=== PATIENT | male | born 2000 | race Caucasian/White ===

== ENCOUNTER 2020-10-22 15:24 | Emergency (ER) | payer OTHER, SELFPAY ==
[2020-10-22 15:51] VITALS: BP 140/67; PULSE 89; RESP 16; TEMP 36.1; O2SAT 98; BMI 25.7
--- NOTE | 2020-10-22 19:55 | ED.GENADULT ---
HPI - General Adult General Chief complaint: General Medical <Adela Escobar NP - Last Filed: 10/23/20 01:10> Stated complaint: seizure <CATALINA Niño Last Filed: 10/23/20 01:10> Time Seen by Provider: 10/22/20 17:18 <CATALINA Niño Last Filed: 10/23/20 01:10> Source: patient and family <CATALINA Niño Last Filed: 10/23/20 01:10> Mode of arrival: ambulatory <Adela Escobar NP - Last Filed: 10/23/20 01:10> Limitations: no limitations <CATALINA Niño Last Filed: 10/23/20 01:10> History of Present Illness HPI narrative: 20-year-old male with substance abuse presents with withdrawal symptoms. States that he was at detox for almost 2 weeks and the left 2 days ago on his own regard before finishing treatment. He reports using heroin when he left because he could not get any benzos. He is asking for Ativan or Klonopin, and states that he would like to get back into a detox program. He denies suicidal ideation, homicidal ideation, and auditory visual hallucinations. He is quite vague about what his withdrawal symptoms were, call them seizure-like activity, but did not lose consciousness or lose continence of bowel or bladder. He does not have any other complaints at this time. <Adela Escobar NP - Last Filed: 10/23/20 01:10> Onset (ago): week(s) <CATALINA Niño Last Filed: 10/23/20 01:10> Severity: moderate <Adela Escobar NP - Last Filed: 10/23/20 01:10> Associated symptoms: denies other symptoms <CATALINA Niño Last Filed: 10/23/20 01:10> Related Data Home medications: Home Medications Medication Instructions Recorded Confirmed Vitamin B-1 100 mg PO DAILY 10/22/20 10/22/20 buprenorphine-naloxone 1 strip SUBLINGUAL DAILY 10/22/20 10/22/20 clonidine HCl 1 tab PO QID 10/22/20 10/22/20 duloxetine 1 cap PO DAILY 10/22/20 10/22/20 gabapentin 1 cap PO TID 10/22/20 10/22/20 quetiapine 2 tab PO Q8H 10/22/20 10/22/20 trazodone 1 tab PO BEDTIME PRN 10/22/20 10/22/20 omeprazole 1 tab PO DAILY 10/23/20 10/23/20 <Adela Escobar NP - Last Filed: 10/23/20 01:10> Allergies/adverse reactions: Allergies Allergy/AdvReac Type Severity Reaction Status Date / Time No Known Allergies Allergy Unverified 02/16/20 19:18 [No Known Allergies*] <CATALINA Niño Last Filed: 10/23/20 01:10> Review of Systems Review of Systems: Constitutional: No Fever, No Chills ENT/Mouth: No sore throat, No Rhinorrhea Eyes: No Eye Pain, No Swelling, No Redness Cardiovascular: No Chest Pain, No SOB Respiratory: No Cough, No Sputum Gastrointestinal: No Nausea, No Vomiting, No Diarrhea, No abdominal Pain Genitourinary: No Dysuria, No Hematuria Musculoskeletal: No joint pain, No Myalgias, No Joint Swelling Skin: No Skin Lesions, No rash Neuro: No Weakness, No Numbness, No Loss of Consciousness, No Dizziness, No Headache Psych: Positive substance abuse, No Anxiety, No Depression, No SI/HI/AH/VH Heme/Lymph: No Bruising, No Bleeding,No Lymphadenopathy Endocrine: No Polyuria, No Polydipsia <Adela Escobar NP - Last Filed: 10/23/20 01:10> Yes all other systems are reviewed and are negative <Adela Escobar NP - Last Filed: 10/23/20 01:10> [facility] Past Medical History Attestation statement: The following information was validated with the patient. <CATALINA Niño Last Filed: 10/23/20 01:10> Source: old records reviewed <CATALINA Niño Last Filed: 10/23/20 01:10> Social History Social History: Social History Alcohol intake: never Smoked in Last 30 Days: Yes Use of substances other than those prescribed or required for medical reasons: Yes Substance Use Type: Heroin and Opiates Substance Use Type Other:: KETAMINE Substance Use Frequency: Chronic Longstanding Last Used Substance: Hours (ago) Any prior treatment program specific to substance use: Yes Advance Directives: No <Adela Escobar NP - Last Filed: 10/23/20 01:10> Physical Exam Vital Signs: Vital Signs: Last Vital Signs Temp 98.8 F 10/23/20 13:31 Pulse 77 10/23/20 13:31 Resp 18 10/23/20 08:32 BP 109/53 L 10/23/20 13:31 Pulse Ox 98 10/23/20 13:31 Body Mass Index 25.7 <Adela Escobar NP - Last Filed: 10/23/20 01:10> Vital Signs: Last Vital Signs Temp 98.8 F 10/23/20 13:31 Pulse 77 10/23/20 13:31 Resp 18 10/23/20 08:32 BP 109/53 L 10/23/20 13:31 Pulse Ox 98 10/23/20 13:31 Body Mass Index 25.7 <Elissa Mederos NP - Last Filed: 10/23/20 16:55> Appearance: Alert. Oriented X3. No acute distress. Eyes: Pupils equal, round and reactive to light. ENT: Pharynx normal. Neck: Normal inspection. Neck supple. CVS: Normal heart rate and rhythm. Pulses normal. Respiratory: No respiratory distress. Breath sounds normal. Abdomen: Soft and nontender. Skin: Skin warm and dry. Normal skin color. Normal skin turgor. Extremities: No lower extremity edema. Neuro: No motor deficit. No sensory deficit. <Adela Escobar NP - Last Filed: 10/23/20 01:10> Course Course Course Narrative: 20-year-old male presents with withdrawal symptoms. He left detox without completing entire course of treatment, stated that he used heroin over the past 2 days. Has been sleeping outside and is homeless. Mother presents with him, patient has a restraining order against him from his biological father, patient has been stealing family's medications. At the time of my assessment, pyridine recovery operator is at bedside and we are trying to help him either get back into detox, or get set up with methadone maintenance. Patient is asking for Ativan or Klonopin. He was advised that this would not be possible and that he needed to have a provider that could follow him in the community. 8:50 p.m. plan of care discussed with patient and mother, patient clearly disappointed that he will not be receiving any Ativan or Klonopin, once he understood that we would not be filling these medications he stated that he was suicidal and is going to get 2 g of heroin. 9:00 p.m.. Patient moved to the Psychiatric pod, shortly after arriving, he told the nurse that he was kidding and that he was just trying to make his mother angry. Patient was advised that he this manipulative behavior would not work here, and that he would not be discharged until full crisis consult completed. [facility] consult pending for the morning. <Adela Escobar NP - Last Filed: 10/23/20 01:10> 0845-patient is currently pending a care team evaluation. Vital signs reviewed and stable. Placed in position observation pending disposition. Currently sleeping. Respiratory even and labored. Will continue plan of care. 1000-the recovery nurse Kari came out to find me and she is concerned for acute withdrawal from benzos. Additional concern from Carol Gupta psych LV for same. Patient had been taking 2 mg of Ativan t.i.d. prescribed by provider at [facility]. His last dose was August 21. This was confirmed mass pat. Will re-start ativan and previously prescribed after discussion with team. 1430-Patient cleared by Care team. I did speak to Carol Gupta APRN. She tells me the patient's benzo's have actually been prescribed by his PCP who is no longer going to be prescribing this. There was concern this morning for withdrawal from benzos from the addiction team and the patient has an extensive history of severe benzo withdrawals requiring admission. At this point we have re-started the patient's ativan TID with recommendations from Carol to resume the previous dose. Patient cleared from care team as they do not feel he needs inpatient psychiatric care and I agree with this as it seems most of the patient's concerns are substance/medication related. Carol Gupta working very closely with patient today and we offered staying in the [facility] and getting him into detox in the morning who can facilitate his benzo taper. Patient does not want to do this. He wants to be discharged. We both have spoke to the patient and do not feel it is appropriate to discharge the patient with a prescription for benzos without supervision. We talked to the patient about how unsafe this can be especially with his history of severe benzo withdrawal symptoms. However, he is alert and oriented and able to make his own decisions. He plans on going home today. He does not want to continue suboxone and will follow-up with intake with methadone clinic tomorrow. He has been provided with the information for this. I did explain to the patient he is welcome to return at any time. 1650-patient has now decided that he will stay in the emergency department. Carol Gupta will order a dose of methadone here (10mg tonight). She will also be placing her recommendations for his Ativan dosing. Plan is the patient is on the wait list for detox. If he chooses to leave he may but WITHOUT a prescription for benozs. <Elissa Mederos NP - Last Filed: 10/23/20 16:55> Medical Decision Making MDM Narrative Medical decision making narrative: Withdrawal symptoms <Adela Escobar NP - Last Filed: 10/23/20 01:10> Differential Diagnosis Differential Diagnosis: Depression <Adela Escobar NP - Last Filed: 10/23/20 01:10> Medical Records Medical records reviewed: Yes I reviewed the patient's medical records. <Adela Escobar NP - Last Filed: 10/23/20 01:10> Lab Data Lab results reviewed: Yes I reviewed the patient's lab results. <Adela Escobar NP - Last Filed: 10/23/20 01:10> Labs: Lab Results 10/22/20 Range/Units 21:47 Urine Opiates Screen Not Detected (Not Detect) Ur Barbiturates Screen Not Detected (Not Detect) Ur Phencyclidine Scrn Not Detected (Not Detect) Ur Amphetamines Screen Not Detected (Not Detect) U Benzodiazepines Scrn Not Detected (Not Detect) Urine Cocaine Screen Not Detected (Not Detect) U Marijuana (THC) Screen Not Detected (Not Detect) <Adela Escobar NP - Last Filed: 10/23/20 01:10> Lab Results 10/22/20 Range/Units 21:47 Urine Opiates Screen Not Detected (Not Detect) Ur Barbiturates Screen Not Detected (Not Detect) Ur Phencyclidine Scrn Not Detected (Not Detect) Ur Amphetamines Screen Not Detected (Not Detect) U Benzodiazepines Scrn Not Detected (Not Detect) Urine Cocaine Screen Not Detected (Not Detect) U Marijuana (THC) Screen Not Detected (Not Detect) <Elissa Mederos NP - Last Filed: 10/23/20 16:55> Discharge Plan Discharge Clinical Impression: Withdrawal from benzodiazepine, Substance abuse <Adela Escobar NP - Last Filed: 10/23/20 01:10> Patient Disposition: Home, Self-Care <Adela Escobar NP - Last Filed: 10/23/20 01:10> Instructions: Polysubstance Abuse (ED) <Adela Escobar NP - Last Filed: 10/23/20 01:10> Additional Instructions: It was recommended that you stay in the emergency department and be transferred to a facility that could help you taper your benzodiazepine dose. However, you decided to be discharged home. At this point we are not comfortable prescribing you benzodiazepines. You may follow-up in the morning with the methadone clinic to do your intake. Feel free to return at any time <Adela Escobar NP - Last Filed: 10/23/20 01:10> Prescriptions: No Action quetiapine 25 mg tablet 2 tab PO Q8H RF: 0 clonidine HCl 0.1 mg tablet 1 tab PO QID RF: 0 trazodone 50 mg tablet 1 tab PO BEDTIME PRN (Reason: insomnia) RF: 0 gabapentin 300 mg capsule 1 cap PO TID RF: 0 duloxetine 30 mg capsule,delayed release(DR/EC) 1 cap PO DAILY RF: 0 Vitamin B-1 100 mg PO DAILY RF: 0 buprenorphine-naloxone 8-2 mg film 1 strip sublingual DAILY RF: 0 omeprazole 20 mg tablet,delayed release (DR/EC) 1 tab PO DAILY RF: 0 <Adela Escobar NP - Last Filed: 10/23/20 01:10> Referrals: Mykel Marquis MD [Primary Care Provider] - 2 days <Adela Escobar NP - Last Filed: 10/23/20 01:10>
[2020-10-22 20:03] VITALS: BP 135/88; PULSE 80; RESP 16; O2SAT 98
--- NOTE | 2020-10-22 21:09 | MHC.RECOVSUP ---
? Reason for consult Support o Current location: o Identified substance use concern: - withdrawal - Support ? Intervention o Community resources provided o Harm reduction discussion ? Plan: o Patient awaiting crisis evaluation o Patient to follow up with [facility] after discharge ? Additional information: after talk to patient about a plan of action.. Patient threatened to kill himself.. stating I just going to put 2 grams in one shot and kill myself .. I reported it to N.P. patient is going to be held in the pod for a Crisis Evaluation.
[2020-10-22 21:33] VITALS: BP 128/95; PULSE 75; RESP 12; TEMP 37.2; O2SAT 100
--- NOTE | 2020-10-22 22:08 | PC.NURSE ---
KELLI faxed and called. KELLI stated that someone may be here during the overnight shift.
[2020-10-22 22:19] LABS: Amphetamine Screen Urine Not Detected (Not Detect); Barbiturates, Urine Not Detected (Not Detect); Benzodiazepines Screen Urine Not Detected (Not Detect); Cannabinoid Screen Urine Not Detected (Not Detect); Cocaine Screen Urine Not Detected (Not Detect); Opiate Screen Urine Not Detected (Not Detect); Phencyclidine Screen Urine Not Detected (Not Detect)
[2020-10-22 23:37] VITALS: BP 126/87; PULSE 79; RESP 18; TEMP 36.1; O2SAT 98
[2020-10-23] VITALS (7 sets, daily range): BP systolic 108–132; BP diastolic 53–87; PULSE 74–97; RESP 18; TEMP 36.7–37.1; O2SAT 98–99
[2020-10-23] MEDS: traZODone HCL 50 MG TABLET PO ×2 (00:21→21:07)
[2020-10-23] MEDS: Gabapentin 300 MG CAPSULE PO ×4 (00:22→21:07)
[2020-10-23] MEDS: QUEtiapine Fumarate 50 MG TABLET PO ×3 (00:22→17:28)
[2020-10-23] MEDS: cloNIDine HCL 0.1 MG TABLET PO ×4 (00:22→21:07)
[2020-10-23] MEDS: Thiamine HCL 100 MG TABLET PO (08:35)
[2020-10-23] MEDS: DULoxetine HCl 30 MG CAPSULE.DR PO (08:35)
--- NOTE | 2020-10-23 08:45 | PC.NURSE ---
pt medicated per jul. pt reports he does not take suboxone and was wishing to talk to someone regarding starting methadone. pt calm and cooperative at this time, requesting to take a shower.
--- NOTE | 2020-10-23 10:00 | MHC.RECOVRN ---
20 year old male presented to [facility], ambulatory, on 10/22 due to pt states he was d/c from recovery center yesterday for opiate withdrawal and was on 6mg of ativan, states he signed self out yesterday and states he is having szrs and is using heroin to control them. pt vauge about szr? activity per it programmer. school standards coach met with pt who then reported SI. Pt moved to the behavioral pod for further evaluation. T/w met with pt in [facility] after pt reported opioid use and a desire to begin methadone. Pt reports being admitted to [facility] in [place] for 3 weeks and completing a self directed discharge this past Thursday, 10/21. Pt decided to leave after it was discovered that pt was not taking his Suboxone appropriately. While at [facility], pt was prescribed Ativan, 2 mg TID, which was confirmed by t/w. Pt reports having been prescribed benzodiazepines?x 5 years, most recently clonazepam 2 mg daily from an outpatient provider?at [place]. Pt?reports last?clonazepam dose on 10/22, 1 mg. Pt reports taking all benzos as prescribed. Pt reports using heroin, 2-3 grams daily, IN, last use 10/22. Pt reports hx IV use.? Currently, pt is experiencing opioid and benzodiazepine?withdrawal. Pt has difficulty speaking, dilated pupils, anxious, tremulous. Pt would like to start on methadone and be connected to [facility].? Pt is awaiting crisis evaluation. Case discussed with pts RN, CARE Team, and Carol Gupta APRN. Will continue to follow.?
[2020-10-23] MEDS: LORazepam 1 MG TABLET 2 MG PO ×3 (10:15→21:07)
--- NOTE | 2020-10-23 10:28 | PC.NURSE ---
Carol Gupta in to bedside to talk with pt
--- NOTE | 2020-10-23 12:01 | HO.ADDICTCON ---
History of Present Illness Date of Service: 10/23/2020 Chief Complaint: seizure Reason for Consult: ?benzodiazepine withdrawal Requesting physician: Elissa Mederos Discussed with referring provider: Yes Sources of Information: patient interviewed and chart reviewed HPI Narrative: Patient is a 20 year old male with OUD and benzodiaepine dependance who presented to [facility] follow self initiated discharge from [facility] treatment Center where he was reportedly undergoing medically supervised withdrawal from opioids and buprenorphine as well as benzodiazepines. Patient seen be RS RN this AM and was noted to be tremulous, slowed thinking and speech, and reporting anxiety sx. RN confirmed with [facility] that patient had been receiving Lorazepam 2mg TID from 10/16-10/21 (when he left). Unclear what the taper plan was or if there was a taper plan as patient is reporting he does NOT wish to be tapered off of this medication. [facility] checked and as far back as it provides history (2018) patient was being prescribed Clonazepam 2mg QD. Last Clonazepam script documented was 08/29/2020. Then on 10/04/2020 he recieved a Lorazepam rx 2mg #20 5DS. Patient reports intermittent treatment admissions--mainly to address OUD. In regards to his OUD, he was previously on suboxone and states he wants to transition to methadone and that was his plan at [facility]. He is reporting mild opioid withdrawal sx and states he has some nausea and one episode of vomiting. Collateral from Dr. Dowling (PCP at [place]): Dr. Madera reports that patient came to him to establish care already on benzodiazepines. He reports decreasing dose patient reported being on and the plan was for this medication (Clonazepam) to be continued by a psychiatric provider. Patient unable to establish care with psychiatric provider. Dr. Madera also reports that patient has a history of [address] 35 commitment and reportedly ended up requiring medical admission during this time for acute psychosis thought to be related to benzodiazepine withdrawal. Dr. Madera believes that patient was successfully tapered off of benzodiazepines during this medical admission and then completed commitment. He reports he has not seen patient since July. Please see RSRN note for additional information. Discussed the above with patient later in the day and he was somewhat evasive and unable to provide any type of meaningful history. He is adamant that he has never been tapered off of benzodiazepines, and that he does not wish to be. This bid writer informed patient that at this time, a taper is the only option as he does not have a psychiatric provider to continue prescribing and PCP very clear that he will no longer prescribe those either, but will continue to treat for primary care. Patient verbalized understanding. Multiple conversations with patient throughout the day btwn this bid writer and RSRN. Patient agreeable to returning to [facility] to complete benzo taper, but wishes to start methadone before then--and considering leaving [facility] this evening. Reinforced risks associated with not completing benzo taper, patient very aware. As of 1629 patient still not exhibiting any withdrawal sx, but reporting he has been vomiting and having loose stools. Patient declining to allow this bid writer to speak to his mother to see if clearer time line or medication history could be provided. Review of Systems Constitutional: Reports as per HPI Diagnostics Vital Signs (24Hr): Vital Signs - 24 hr 10/22/20 15:51 10/22/20 20:03 10/22/20 21:33 Temperature 97.0 F 98.9 F Pulse Rate 89 80 75 Respiratory Rate 16 16 12 Blood Pressure 140/67 H 135/88 128/95 H Pulse Oximetry 98 98 100 10/22/20 23:37 10/23/20 00:22 10/23/20 08:32 Temperature 97.0 F 98.0 F Pulse Rate 79 79 97 Respiratory Rate 18 18 Blood Pressure 126/87 126/87 132/78 Pulse Oximetry 98 99 10/23/20 08:35 Temperature Pulse Rate 97 Respiratory Rate Blood Pressure 132/78 Pulse Oximetry Body Mass Index 25.7 Labs Labs: Laboratory Results - last 48 hr 10/22/20 21:47 Urine Opiates Screen Not Detected Ur Barbiturates Screen Not Detected Ur Phencyclidine Scrn Not Detected Ur Amphetamines Screen Not Detected U Benzodiazepines Scrn Not Detected Urine Cocaine Screen Not Detected U Marijuana (THC) Screen Not Detected Mental Status Exam Mental Status Exam Patient Appearance: Appropriate Patient Orientation: Person, Place, Time and Situation Level of Consciousness: Awake, Appropriate and Alert Patient Behavior: Appropriate, Talkative and Avoidant Mood Description: Relaxed Affect Description: Relaxed Ability to Follow Directions: Good Speech Pattern: Clear Memory Description: Remote Impaired and Immediate Impaired Hallucinations: None Delusions: Not Present Thought Process: Evasive and Word Salad Thought Content: positive for Majestic, positive for Circumstantial and positive for Tangential Judgement: Fair Medications Medications Current Medications Generic Name Dose Route Start Last Admin Trade Name Jossy PRN Reason Stop Dose Admin Buprenorphine/Naloxone film 10/23/20 09:00 Buprenorphine/Naloxone 8/2 Mg Film SUBLINGUAL DAILY COLIN Clonidine HCl 0.1 mg 10/22/20 23:45 10/23/20 08:35 Clonidine Hcl 0.1 Mg Tablet PO 0.1 mg QID COLIN Administration Protocol Duloxetine HCl 30 mg 10/23/20 09:00 10/23/20 08:35 Duloxetine Hcl 30 Mg Capsule.Dr PO 30 mg DAILY COLIN Administration Gabapentin 300 mg 10/22/20 23:45 10/23/20 08:35 Gabapentin 300 Mg Capsule PO 300 mg TID COLIN Administration Lorazepam 2 mg 10/23/20 10:15 10/23/20 10:15 Lorazepam 1 Mg Tablet PO 2 mg TID COLIN Administration Quetiapine Fumarate 50 mg 10/23/20 08:00 10/23/20 08:35 Quetiapine Fumarate 50 Mg Tablet PO 50 mg Q8H COLIN Administration Thiamine HCl 100 mg 10/23/20 09:00 10/23/20 08:35 Thiamine Hcl 100 Mg Tablet PO 100 mg DAILY COLIN Administration Trazodone HCl 50 mg 10/22/20 23:59 10/23/20 00:21 Trazodone Hcl 50 Mg Tablet PO 50 mg BEDTIME PRN Administration insomnia Allergies Allergies Allergy/AdvReac Type Severity Reaction Status Date / Time No Known Allergies Allergy Unverified 02/16/20 19:18 [No Known Allergies*] Assessment & Plan Assessment & Plan (1) Withdrawal from benzodiazepine: Status: Acute Code(s): F13.239 - Sedative, hypnotic or anxiolytic dependence with withdrawal, unspecified Recommendations: -will continue with 2mg lorazepam TID taper plan for now. Will re-eval in AM if patient not admitted to [facility] as planned -Evident that patient also has benzodiazepine use disorder and prescription for outpatient taper is not appropriate given history (2) Opioid use disorder: Status: Acute Code(s): F11.99 - Opioid use, unspecified with unspecified opioid-induced disorder Recommendations: Continue to monitor for opioid withdrawal. Methadone 10mg to be given this evening Please hold seroquel if patient over sedated Greater than 50% of the session was spent on counseling and/or coordination of care [facility] Social History Social History Alcohol intake: never Smoked in Last 30 Days: Yes Use of substances other than those prescribed or required for medical reasons: Yes Substance Use Type: Heroin and Opiates Substance Use Type Other:: KETAMINE Substance Use Frequency: Chronic Longstanding Last Used Substance: Hours (ago) Any prior treatment program specific to substance use: Yes Advance Directives: No
--- NOTE | 2020-10-23 15:06 | MHC.CARE ---
1110: Met with pt in his room (BH5) in the ED Behavioral Health Unit at [facility]. Pt appeared his stated age, was dressed in hospital attire. Pt was sitting in his bed at the time. Pt stated that he is a current heroin user and that his use of opiates began at approximately 10 years of age following a shoulder and 2 knee surgeries. Pt stated he was prescribed strong pain killers which eventually led to his using ?Oxys? in high school and college before he moved to heroin. Pt stated that his heroin use began at approximately 16 years of age. Pt stated that he wants/needs help with the addiction and believes that if he does not get help he will return to using and will eventually overdose. Pt stated that his alleged suicidal statement yesterday evening was taken out of context. Pt was expressing that he believed he would overdose if he were to go back to using. Pt stated he has no thoughts of harm to self or others. At present, pt does still use heroin but stated that he dislikes the feeling of being sick and uses ?Only enough so I stop feeling sick?. Pt has a history of inpatient psych admissions being on M5 in 2018, and of admissions to treatment centers for substance abuse. Pt has a family history of anxiety (Father), Paranoid Schizophrenia (paternal Grandmother) and substance abuse (Alcoholism on paternal and maternal side). Pt recently left ?rehab? after 3 weeks as he felt it wasn?t helping him. Pt expressed concerns over withdrawal from benzos, stating he enters a place he calls ?The Dark Zone? where he experiences vomiting, delusions and eventually seizures. Pt appeared very concerned over the potential for this to occur again. Pt reports poor quality sleep, getting to sleep easily but experiencing difficulty staying asleep. Pt reports his appetite at present is fair, normally very good, which he attributes to experiencing withdrawal symptoms from benzos. Pt stated that he wants services to help him recover from his drug use and wishes to stop suboxone and begin methadone as suboxone causes headaches for him and methadone makes him ?Feel more normal? than suboxone does. Pt does not appear to be a candidate for in patient level of care. Pt has been referred to the recovery team to assist with services for treatment and/or recovery.
--- NOTE | 2020-10-23 16:30 | MHC.RECOVRN ---
T/w met with pt to discuss plan of care. Pt is aware that PCP will no longer prescribe benzodiazepines and the only option is to safely taper at this point. Pt agreeable to return to [facility] to detox. [facility] does not have a detox bed today, pt put on waitlist. Pt is also looking to begin methadone prior to returning to [facility]. Case discussed with Carol Gupta APRN who will order methadone, 10 mg. Pt is unsure if he will stay in the ED overnight and wait to see if [facility] has a bed tomorrow or if he will dc and walk in to [facility] in the am to begin their OTP. Pt aware of the risks of leaving the hospital without a plan regarding benzo taper. lean coach to see pt this evening. Will continue to follow.
--- NOTE | 2020-10-23 20:49 | PC.NURSE ---
Patient took his Methadone dose scheduled one time, patient is calm and quiet, no distress reported, swabbed for covid/pending result, patient is currently with his mother, will continue to monitor.
[2020-10-23 20:57] LABS: COVID-19 Test Negative (Negative); IDNOW Serial# 08D9AD1C
--- NOTE | 2020-10-23 21:14 | PC.NURSE ---
Patient mother just left, patient took his night marcos medication, currently on phone talking to his friend, will continue to monitor.
[2020-10-24 01:27] VITALS: BP 103/61; PULSE 95; RESP 16; TEMP 36.6; O2SAT 97
[2020-10-24] MEDS: LORazepam 1 MG TABLET 2 MG PO (08:19)
[2020-10-24] MEDS: QUEtiapine Fumarate 50 MG TABLET PO (08:19)
[2020-10-24] MEDS: Thiamine HCL 100 MG TABLET PO (08:19)
[2020-10-24] MEDS: DULoxetine HCl 30 MG CAPSULE.DR PO (08:19)
[2020-10-24] MEDS: Gabapentin 300 MG CAPSULE PO (08:19)
[2020-10-24 08:21] VITALS: BP 120/64; PULSE 72
[2020-10-24] MEDS: cloNIDine HCL 0.1 MG TABLET PO ×2 (08:21→12:59)
[2020-10-24 08:28] VITALS: BP 120/64; PULSE 72; RESP 16; TEMP 36.8; O2SAT 99
--- NOTE | 2020-10-24 09:02 | PC.NURSE ---
PT NEEDS TO [facility] FOR HIM, IF THEY DO NOT HE WILL GO TO THE CLINIC FOR METADONE
--- NOTE | 2020-10-24 09:15 | PC.NURSE ---
PT WILL BE DC'D WILL FOLLOW UP WITH [facility], FUNGAL RASH ASSESSED BY PROVIDER PRIOR TO DC
--- NOTE | 2020-10-24 09:32 | PC.NURSE ---
MARLA FROM [facility] CALLED THEY HAVE A DETOX BED FOR HIM AND WILL SET UP TRASPORTATION TO DETOX
--- NOTE | 2020-10-24 10:38 | PC.NURSE ---
arthur for [facility] will be here around 1330 1400 to take patient to center
--- NOTE | 2020-10-24 11:25 | PM.EVENT ---
Event Note Date of Service: 10/24/20 Event Note: Addiction follow up: -Patient received methadone 10mg last evening with good effect, per his report -Accepted to YANET Snyder MA. scheduled to leave [facility] around 1pm -Patient verbalizing motivation for treatment. Reflecting on the past few months and events that have occurred. Identifying his family and missing them as a motivator for working towards recovery. Plan: -methadone increased to 15mg one time dose -scheduled to d/c to [facility] later today -take home narcan ordered as well
[2020-10-24 12:59] VITALS: BP 120/64; PULSE 72
[2020-10-24] MEDS: Naloxone HCl Nasal TAKE HOME 4 MG SPRAY NOSTRILALT (12:59)
[2020-10-24] MEDS: Omeprazole 20 MG CAPSULE.DR PO (12:59)
== END 2020-10-24 13:05 | disposition other institution (70) ==
PROVIDERS: Nurse Practitioner Family; Physician Assistant; Emergency Provider Emergency Medicine; PCP Internal Medicine
DX: F13.239 Sedative, hypnotic or anxiolytic dependence with withdrawal, unspecified (principal); F11.10 Opioid abuse, uncomplicated; Z20.822 Contact with and (suspected) exposure to COVID-19; R45.851 Suicidal ideations
CPT/HCPCS: 36415; 80307; 87635; 99285

== ENCOUNTER 2021-01-12 14:19 | Inpatient (IN) | payer OTHER, SELFPAY ==
[2021-01-12 14:24] VITALS: BP 160/102; PULSE 80; RESP 16; TEMP 36.7; O2SAT 99; BMI 20.4
[2021-01-12] MEDS: Ondansetron ODT 4 MG TAB.RAPDIS TRANSLINGU (14:33)
--- NOTE | 2021-01-12 14:40 | ED.PSYCH ---
HPI - Psych General Chief Complaint: Psychiatric Symptoms Stated Complaint: crisis - SI Time Seen by Provider: 01/12/21 14:32 Source: patient Mode of arrival: ambulatory Limitations: no limitations History of Present Illness HPI Narrative: 20 y/o male with history of opioid use disorder, anxiety with benzodiazapine dependence who presents to the ER with increased anxiety associated with nausea and vomiting. He reports he started vomiting yellow bile this morning when his anxiety worsened. He denies abdominal pain and reports the vomiting is all due to his anxiety. He reports being on alprazolam for anxiety and last took it yesterday. He cannot state what is making his anxiety more severe today. He did admit to not having any more alprazolam at home. He denies any drug or alcohol use today. He lives at home with his father. MD complaint: anxiety Onset (ago): hour(s) Duration: constant History of same: Yes Relieving factors: none Exacerbating factors: none Associated symptoms: nausea and vomiting Treatments prior to arrival: none Related Data Home Medications Medication Instructions Recorded Confirmed Vitamin B-1 100 mg PO DAILY 10/22/20 10/22/20 buprenorphine 8 mg-naloxone 2 mg 1 strip SUBLINGUAL DAILY 10/22/20 10/22/20 sublingual film clonidine HCl 0.1 mg tablet 1 tab PO QID 10/22/20 10/22/20 duloxetine 30 mg capsule,delayed 1 cap PO DAILY 10/22/20 10/22/20 release gabapentin 300 mg capsule 1 cap PO TID 10/22/20 10/22/20 quetiapine 25 mg tablet 2 tab PO Q8H 10/22/20 10/22/20 trazodone 50 mg tablet 1 tab PO BEDTIME PRN 10/22/20 10/22/20 omeprazole 20 mg tablet,delayed 1 tab PO DAILY 10/23/20 10/23/20 release Previous Rx's Medication Instructions Recorded nystatin 100,000 unit/gram topical 1 appl TOPICAL DAILY #30 g 10/24/20 powder Allergies Allergy/AdvReac Type Severity Reaction Status Date / Time No Known Allergies Allergy Verified 01/12/21 14:30 [No Known Allergies*] Review of Systems Review of Systems: Constitutional: No Fever, No Chills ENT/Mouth: No sore throat, No Rhinorrhea, No Swallowing Difficulty Cardiovascular: No Chest Pain, No SOB, No Orthopnea, No Edema Respiratory: No Cough, No Sputum, No Wheezing, No dyspnea Gastrointestinal: + Nausea, + Vomiting, No Diarrhea, No abdominal Pain, No Hematochezia, No Melena Genitourinary: No Dysuria, No Urinary Frequency, No Hematuria Musculoskeletal: No joint pain, No Myalgias Skin: No Skin Lesions, No rash Neuro: No Weakness, No Numbness, No Dizziness, No Headache Psych: + Anxiety/Panic, + Depression , No SI, No HI, No VH, No AH Heme/Lymph: No Bruising, No Lymphadenopathy PMFSH Past Medical History Medical History (Updated 01/12/21 @ 16:25 by REAL Dodge) Anxiety Depression Social History Social History Alcohol intake: never Substance Use Type: Heroin and Opiates Advance Directives: No Advance Directives Information Provided: Yes Physical Exam Vital Signs: Vital Signs: Last Vital Signs Temp 98.0 F 01/12/21 14:24 Pulse 80 01/12/21 14:24 Resp 16 01/12/21 14:24 BP 160/102 H 01/12/21 14:24 Pulse Ox 99 01/12/21 14:24 Body Mass Index 20.4 Appearance: Young male in his early 20s, laying down, vomiting yellow bile Eyes: Pupils equal, round and reactive to light. Pupils dilated but reactive. ENT: Pharynx normal. Neck: Normal inspection. Neck supple. CVS: Normal heart rate and rhythm. Pulses normal. Respiratory: No respiratory distress. Breath sounds normal. Abdomen: Soft and nontender. +BS x4 Skin: Skin warm and dry. Normal skin color. Normal skin turgor. No rashes. Extremities: No lower extremity edema. Neuro: Delayed responses, flat affect, reporting anxiety, poor insight and judgement. Course Course Course Narrative: 20 y/o male with history of opiod use disorder previously on Suboxone and anxiety on benzos w/ dependence who presents with increased anxiety associated with nausea and vomiting. [employer]INEER reviewed - he was last prescribed Suboxone and benzodiapine for short courses back on October 04. He denies opiate use. He cannot say where he gets his alprazolam. He is actively vomiting. Will give dose of Zofran and IM ativan now for concerns of withdrawal. Reevaluation(s) Reevaluation #1: Continued vomiting. IM benadryl and reglan ordered. Still awaiting labs and urine tests. Reevaluation #2: Patient in the shower. Intermittently vomiting. VT phenergan ordered. CARE team to see once medically cleared. Signed out to night provider who will f/u results. Consultations Consultation #1: CARE team Discharge Plan Discharge Clinical Impression: Opioid use disorder, Anxiety Vomiting Qualifiers: Vomiting type: bilious vomiting Nausea presence: with nausea Qualified Code(s): R11.14 - Bilious vomiting Prescriptions: No Action quetiapine 25 mg tablet 2 tab PO Q8H RF: 0 clonidine HCl 0.1 mg tablet 1 tab PO QID RF: 0 trazodone 50 mg tablet 1 tab PO BEDTIME PRN (Reason: insomnia) RF: 0 gabapentin 300 mg capsule 1 cap PO TID RF: 0 duloxetine 30 mg capsule,delayed release(DR/EC) 1 cap PO DAILY RF: 0 Vitamin B-1 100 mg PO DAILY RF: 0 buprenorphine-naloxone 8-2 mg film 1 strip sublingual DAILY RF: 0 omeprazole 20 mg tablet,delayed release (DR/EC) 1 tab PO DAILY RF: 0 nystatin 100,000 unit/gram powder 1 appl topical DAILY Qty: 30 RF: 0
[2021-01-12] MEDS: LORazepam 2 MG/ML VIAL IM (15:25)
[2021-01-12] MEDS: diphenhydrAMINE HCL 50 MG/ML VIAL 25 MG IM (16:44)
[2021-01-12] MEDS: Metoclopramide HCl 10 MG/2 ML VIAL IM (16:44)
--- NOTE | 2021-01-12 17:16 | MHC.CARE ---
CARE team will meet with pt to assess his complaints of anxiety and suicidal ideation once he is no longer vomiting and is more stable for evaluation.
[2021-01-12 19:28] LABS: Basophils Absolute Auto 0.1 X10*3/uL (0.0-0.2); Basophils Percent Auto 0.3 % (0-2); Hematocrit 42.8 % (42-52); Hemoglobin 14.8 g/dl (14.0-18.0); Imm Gran Abs Auto 0.07 X10*3/uL (0.00-0.03); Imm Gran Pct Auto 0.5 % (0.0-0.4); Lymphocytes Absolute Auto 0.8 X10*3/uL (1.2-4.9); Lymphocytes Percent Auto 5.8 % (20-40); MANUAL DIFF FLAG SCAN; Mean Corpuscular HGB Conc 34.6 g/dl (31.0-36.0); Mean Corpuscular Hemoglobin 30.8 pg (27.0-33.0); Mean Platelet Volume 10.8 fL (9.4-12.4); Monocytes Absolute Auto 0.4 X10*3/uL (0.1-1.2); Monocytes Percent Auto 2.8 % (2-11); Neutrophils Absolute Auto 13.2 X10*3/uL (2.0-8.3); Neutrophils Percent Auto 90.6 % (45-73); Platelet Count 210 X10*3/uL (160-400); Red Blood Count 4.81 X10*6/uL (4.60-5.80); Red Cell Distribution Width 12.1 % (11.0-16.0); SCAN SMEAR FLAG 1; White Blood Count 14.6 X10*3/uL (4.8-10.8)
[2021-01-12 19:31] VITALS: BP 148/111; PULSE 103; RESP 20; TEMP 36.4; O2SAT 96
[2021-01-12 19:37] LABS: COVID-19 Test Negative (Negative)
[2021-01-12 19:42] LABS: Ethanol < 10 mg/dL
[2021-01-12 19:44] LABS: SLIDE REVIEW VERIFIED
[2021-01-12 19:45] LABS: Alanine Aminotransferase 21 U/L (0-40); Albumin Level 4.9 g/dL (3.5-5.0); Alkaline Phosphatase 92 U/L (39-117); Anion Gap 18 (12-20); Aspartate Amino Transferase 22 U/L (5-37); Bilirubin Direct 0.3 mg/dL (0.0-0.5); Bilirubin Total 0.9 mg/dL (0.0-1.0); Blood Urea Nitrogen 15 mg/dL (9-16); Carbon Dioxide 23 mmol/L (22-29); Chloride 106 mmol/L (96-108); Creatinine Clr Calc Pharmacy 128.1; Estimated Glomerular Filt Rate > 60; Glucose Random 140 mg/dL (60-115); Lipase 30 U/L (8-78); Potassium 3.6 mmol/L (3.3-5.1); Sodium 143 mmol/L (135-145); Total Protein 7.6 g/dL (6.5-8.0)
[2021-01-12 19:49] LABS: Glucose Urine UA NEG (NEG); Leukocyte Esterase Urine NEG (NEG); Nitrite Urine NEG (NEG); PH 8.5 (5.0-8.0); Specific Gravity - Urine 1.015 (1.005-1.025); UACC Culture Trigger NO; Urine Blood NEG (NEG); Urine Ketones NEG (NEG)
[2021-01-12 19:54] LABS: Appearance Urine CLEAR; Color Urine YELLOW; Urine Protein 1+ MG/DL (NEG-TRACE)
[2021-01-12 19:56] LABS: Mucus Urine 2+ /LPF; RBC Urine 0-2 /HPF (0); Squamous Epithelial Cell Urine TRACE /LPF; WBC Urine 0 /HPF (0-4)
[2021-01-12 20:25] LABS: Amphetamine Screen Urine Not Detected (Not Detect); Barbiturates, Urine Not Detected (Not Detect); Benzodiazepines Screen Urine Not Detected (Not Detect); Cannabinoid Screen Urine POSITIVE (Not Detect); Cocaine Screen Urine Not Detected (Not Detect); Fentanyl, urine Not Detected (Not Detect); Opiate Screen Urine Not Detected (Not Detect); Phencyclidine Screen Urine Not Detected (Not Detect)
--- NOTE | 2021-01-12 22:44 | PC.NURSE ---
Patient has been reporting that he is withdrawing from Benzos, UTOX positive only for THC, patient one time put himself on the floor and lie down on the floor pretending he is seizing and also stating he is having seizure, provider came and spoke with patient, patient's father visited had a conversation with provider and care team, patient got assessed by care team, disposition is section 12 inpatient bed search, will continue to monitor.
[2021-01-12 23:29] VITALS: BP 147/78; PULSE 69
[2021-01-12] MEDS: cloNIDine HCL 0.1 MG TABLET PO (23:29)
[2021-01-12] MEDS: QUEtiapine Fumarate 100 MG TABLET PO (23:29)
[2021-01-12] MEDS: Gabapentin 300 MG CAPSULE PO (23:29)
[2021-01-12 23:34] VITALS: BP 147/78; PULSE 69; TEMP 37.3; O2SAT 96
--- NOTE | 2021-01-13 06:23 | PC.NURSE ---
Patient slept through the night, no distress observed/reported, med compliant, behavior psychotic, disposition per care team was section 12 inpatient bed search, patient need lots of redirection related to dressing, VSS, will continue to monitor.
--- NOTE | 2021-01-13 07:14 | PC.NURSE ---
patient appears in no distress, appears to remain asleep at present with even unlabored breaths.
--- NOTE | 2021-01-13 07:34 | PC.NURSE ---
patient came up and notified t/w that he is a methadone maintenance patient (which he did not mention despite the fact i had discussed opiate wd to patient the day before)
[2021-01-13 08:29] VITALS: BP 147/78; PULSE 69
[2021-01-13] MEDS: cloNIDine HCL 0.1 MG TABLET PO ×2 (08:29→21:15)
[2021-01-13] MEDS: DULoxetine HCl 30 MG CAPSULE.DR PO (08:29)
[2021-01-13] MEDS: QUEtiapine Fumarate 100 MG TABLET PO ×2 (08:29→21:15)
[2021-01-13] MEDS: Gabapentin 300 MG CAPSULE PO ×3 (08:29→21:15)
[2021-01-13 21:15] VITALS: BP 121/82; PULSE 64
--- NOTE | 2021-01-14 01:07 | MHC.CARE ---
Accepted for admission to . Transfer soon.
--- NOTE | 2021-01-14 03:31 | PC.ADMIT ---
Addendum entered by Denilson Herman RN 01/14/21 03:54: 15mins check. BRIAN Q4H Original Note: Pt is 20 year old male presented to [facility] from the ED at approximately 0200 on CV status. Pt is Covid Negative, Utox + for Marijuana. Diagnosis: hyperemesis, anxiety and suicidal ideation. Pt appears clean, calm, and cooperative upon contact. Denies SI/HI. Pt verbalized active withdrawal from Benzos. Pt is seen for substance use and on methadone therapy. Speech is clear, slow and low in volume.Pt shows dysthymic mood and congruent affect. Order verified by provider, treatment plan completed.
[2021-01-14 06:00] VITALS: BP 122/59; PULSE 58; RESP 16; TEMP 36.2; O2SAT 99
[2021-01-14 08:18] VITALS: BP 133/88; PULSE 63
[2021-01-14] MEDS: DULoxetine HCl 30 MG CAPSULE.DR PO (08:18)
[2021-01-14] MEDS: cloNIDine HCL 0.1 MG TABLET PO ×2 (08:18→20:13)
[2021-01-14] MEDS: Gabapentin 300 MG CAPSULE PO ×3 (08:18→20:13)
[2021-01-14] MEDS: QUEtiapine Fumarate 100 MG TABLET PO ×2 (08:27→20:13)
[2021-01-14] MEDS: Magnesium Hydrox/Alum Hydrox 30 ML ORAL.SUSP PO (08:27)
[2021-01-14] MEDS: LORazepam 1 MG TABLET PO ×4 (08:36→21:10)
[2021-01-14] MEDS: Acetaminophen 325 MG TABLET 650 MG PO (13:12)
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
[2021-01-14 18:00] VITALS: BP 136/85; PULSE 91; TEMP 36.4
[2021-01-14] MEDS: traZODone HCL 50 MG TABLET PO (20:14)
--- NOTE | 2021-01-15 | ECG_ITS ---
Test Reason : ATYPIAL USE Blood Pressure : / mmHG Vent. Rate : 083 BPM Atrial Rate : 083 BPM P-R Int : 140 ms QRS Dur : 080 ms QT Int : 384 ms P-R-T Axes : 064 083 058 degrees QTc Int : 451 ms Normal sinus rhythm Normal ECG When compared with ECG of 17-DEC-2016 13:45, Vent. rate has increased BY [address] no longer elevated in Anterior leads QT has lengthened Referred By: Elizabeth Barrios Electronically Signed By:TAE [id number]
[2021-01-15 04:40] VITALS: BP 147/79; TEMP 35.8; O2SAT 99
[2021-01-15 06:00] VITALS: BP 154/93; PULSE 68; RESP 16; TEMP 35.9; O2SAT 100
[2021-01-15 08:03] LABS: Alanine Aminotransferase 19 U/L (0-40); Albumin Level 4.7 g/dL (3.5-5.0); Alkaline Phosphatase 84 U/L (39-117); Anion Gap 12 (12-20); Aspartate Amino Transferase 17 U/L (5-37); Bilirubin Total 1.1 mg/dL (0.0-1.0); Blood Urea Nitrogen 13 mg/dL (9-16); Calcium 9.8 mg/dL (8.4-10.2); Carbon Dioxide 30 mmol/L (22-29); Chloride 106 mmol/L (96-108); Cholesterol 197 mg/dL; Creatinine Clr Calc Pharmacy 131.5; Estimated Glomerular Filt Rate > 60; Glucose Fasting 97 mg/dL (60-99); HDL Cholesterol 36 mg/dL; LDL Cholesterol Calculated 137 mg/dl; Sodium 144 mmol/L (135-145); Total Protein 7.1 g/dL (6.5-8.0); Triglycerides 124 mg/dL
[2021-01-15] MEDS: DULoxetine HCl 30 MG CAPSULE.DR PO (08:21)
[2021-01-15 08:22] VITALS: BP 120/74; PULSE 67
[2021-01-15] MEDS: cloNIDine HCL 0.1 MG TABLET PO ×2 (08:22→20:17)
[2021-01-15] MEDS: QUEtiapine Fumarate 100 MG TABLET PO (08:22)
[2021-01-15] MEDS: LORazepam 1 MG TABLET PO ×2 (08:22→12:41)
[2021-01-15] MEDS: Gabapentin 300 MG CAPSULE PO ×3 (08:22→20:17)
[2021-01-15] MEDS: Magnesium Hydrox/Alum Hydrox 30 ML ORAL.SUSP PO (08:22)
[2021-01-15 08:23] LABS: Thyroid Stimulating Hormone 1.39 uIU/mL (0.32-4.0)
[2021-01-15] MEDS: Nicotine Polacrilex 2 MG GUM 4 MG BUCCAL ×4 (10:05→22:05)
--- NOTE | 2021-01-15 12:54 | P.PNPSI_ITS ---
Subjective Subjective Date of Service: 01/15/21 Reason For Visit: Schizophrenia, Opiate,Benzodiazepine,Cannabis Use Subjective Notes: Conditional Voluntary Healthcare Proxy: No Guardianship: No Medical Problems Affecting Mental Status: No Interim History: Discussed severe symptoms of panic, history of use of Xanax and requests for scheduled Klonopin. 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 Reports anxiety managed with Lorazepam. Medication Compliance: Yes Side effects from medications: No Attending Groups: Yes Review of Systems Acute medical concerns: No Medical Review of Systems: unchanged Review of Systems Psychiatric: Reports anxiety, Reports difficulty concentrating, Reports irritability, Reports panic attacks and Reports paranoia Mental Status Exam Mental Status Exam Patient Appearance: Appropriate Patient Orientation: Person, Place, Time and Situation Level of Consciousness: Alert Patient Behavior: Talkative, Cooperative, Anxious, Fatigued and Good Eye Contact Mood Description: Anxious and Apprehensive Affect Description: Anxious and Apprehensive Patient Cognition Impaired: No Ability to Follow Directions: Good Speech Pattern: Spontaneous Speech Memory Description: Episodic Impaired Hallucinations: None Delusions: Paranoid Ideation and Present Thought Process: Distracted and Goal Oriented Thought Content: positive for Goal Oriented Depressive Symptoms: Increased Anxiety and Loss of Energy Judgement: Fair Diagnostics Vital Signs (24Hr): Vital Signs - 24 hr 01/14/21 18:00 01/15/21 04:40 01/15/21 06:00 Temperature 97.6 F 96.4 F L 96.6 F L Pulse Rate 91 68 Respiratory Rate 16 Blood Pressure 136/85 147/79 H 154/93 H Pulse Oximetry 99 100 01/15/21 08:22 Temperature Pulse Rate 67 Respiratory Rate Blood Pressure 120/74 Pulse Oximetry Body Mass Index 20.4 Labs Results: 01/12/21 19:13 01/15/21 07:26 Labs: Laboratory Results - last 48 hr 01/15/21 07:26 Sodium 144 Potassium 4.0 Chloride 106 Carbon Dioxide 30 H Anion Gap 12 BUN 13 Creatinine 1.13 Estim Creat Clear Calc 131.5 Estimated GFR > 60 Fasting Glucose 97 Calcium 9.8 Total Bilirubin 1.1 H AST 17 ALT 19 Alkaline Phosphatase 84 Total Protein 7.1 Albumin 4.7 Triglycerides 124 Cholesterol 197 LDL Cholesterol, Calc 137 HDL Cholesterol 36 TSH 1.39 EKG EKG: reviewed EKG Comment: WNPavel 01/15/21 Medications Medications Current Medications Generic Name Dose Route Start Last Admin Trade Name Freq PRN Reason Stop Dose Admin Acetaminophen 650 mg 01/14/21 00:53 01/14/21 13:12 Acetaminophen 325 Mg Tablet PO 650 mg Q6H PRN Administration Headache/Pain Mild Scale (1-3) Al Hydroxide/Mg Hydroxide 30 ml 01/14/21 00:53 01/15/21 08:22 Magnesium Hydrox/Alum Hydrox 30 Ml Oral.Susp PO 30 ml Q6H PRN Administration Heartburn/Nausea Clonidine HCl 0.1 mg 01/12/21 23:15 01/15/21 08:22 Clonidine Hcl 0.1 Mg Tablet PO 0.1 mg BID COLIN Administration Protocol Duloxetine HCl 30 mg 01/13/21 09:00 01/15/21 08:21 Duloxetine Hcl 30 Mg Capsule.Dr PO 30 mg DAILY COLIN Administration Gabapentin 300 mg 01/12/21 23:15 01/15/21 08:22 Gabapentin 300 Mg Capsule PO 300 mg TID COLIN Administration Hydroxyzine HCl 25 mg 01/14/21 00:53 Hydroxyzine Hcl 25 Mg Tablet PO BEDTIME PRN Anxiety Lorazepam 1 mg 01/14/21 01:44 01/15/21 12:41 Lorazepam 1 Mg Tablet PO 01/18/21 01:43 1 mg Q4H PRN Administration Breakthrough alcohol withdrawa Magnesium Hydroxide 30 ml 01/14/21 00:53 Milk Of Magnesia 30 Ml Oral.Susp PO DAILY PRN Constipation Methadone HCl 80 mg 01/15/21 06:30 01/15/21 06:18 Methadone Hcl 1 Mg/0.1 Ml Oral.Conc PO 80 mg 0630 COLIN Administration Nicotine Polacrilex 4 mg 01/15/21 09:33 01/15/21 10:05 Nicotine Polacrilex 2 Mg Gum BUCCAL 4 mg Q2H PRN Administration Nicotine Cravings Prazosin HCl 1 mg 01/15/21 21:00 Prazosin Hcl 1 Mg Capsule PO BEDTIME [facility] Protocol Quetiapine Fumarate 100 mg 01/12/21 23:15 01/15/21 08:22 Quetiapine Fumarate 100 Mg Tablet PO 100 mg BID COLIN Administration Trazodone HCl 50 mg 01/14/21 00:53 01/14/21 20:14 Trazodone Hcl 50 Mg Tablet PO 50 mg BEDTIME PRN Administration Insomnia Allergies Allergies Allergy/AdvReac Type Severity Reaction Status Date / Time No Known Allergies Allergy Verified 08/14/21 14:30 [No Known Allergies*] Assessment & Plan Assessment & Plan (1) Schizophrenia: Status: Acute Code(s): F20.9 - Schizophrenia, unspecified Assessment and Plan: 20 yo male, presents with psychosis and substance abuse. Family reports psychosis and delusional sx for several months along with methadone maintenance, daily cannabis use with hyperemesis and daily benzodiazepine use. Pt today asks for scheduled benzodiazepines to manage anxiety. [facility] not responding to requests to validate dosage of Methadone. Discussed [facility] with pt to day and options to manage anxiety, panic 1. Klonopin 1 mg bid 2. Decrease Seroquel to 150 mg HS 3. Abilify 5 mg a.m. in trial to prepare for IM of Abilify Maintena. (2) Panic disorder: Status: Acute Code(s): F41.0 - Panic disorder [episodic paroxysmal anxiety] Assessment and Plan: Trial of Klonopin 1 mg bid. Prepare for [employer] party mgt of medication upon discharge (3) Opioid use disorder, severe, on maintenance therapy: Status: Acute Code(s): F11.20 - Opioid dependence, uncomplicated Assessment and Plan: Continue Methadone (4) Cannabis use disorder, severe, dependence: Status: Acute Code(s): F12.20 - Cannabis dependence, uncomplicated (5) Severe benzodiazepine use disorder: Status: Acute Code(s): F13.20 - Sedative, hypnotic or anxiolytic dependence, uncomplicated Assessment and Plan: Trial of scheduled Klonopin for panic symptom mgt while inpatient Greater than 50% of the session was spent on counseling and/or coordination of care Patient educated on: diagnosis, medication risk/benefits, substance abuse and therapeutic strategies Informed Consent: understands Reason for contiued inpatient stay Substantial Risk for: harm to self, inability to function and rapid decompensation
[2021-01-15 20:10] VITALS: BP 137/82; PULSE 94; TEMP 36.5
[2021-01-15] MEDS: clonazePAM 1 MG TABLET PO (20:14)
[2021-01-15 20:15] VITALS: BP 137/82; PULSE 94
[2021-01-15] MEDS: Prazosin HCL 1 MG CAPSULE PO (20:15)
[2021-01-15] MEDS: QUEtiapine Fumarate 50 MG TABLET 150 MG PO (20:15)
[2021-01-15 20:17] VITALS: BP 137/82; PULSE 94
[2021-01-16 06:30] VITALS: BP 93/53; PULSE 71; RESP 14; O2SAT 98
[2021-01-16] MEDS: methADONE HCl 20 MG/2 ML ORAL.CONC 80 MG PO (06:47)
[2021-01-16] MEDS: Omeprazole 20 MG CAPSULE.DR PO (06:47)
[2021-01-16 08:45] VITALS: BP 115/69; PULSE 74; TEMP 36.4; O2SAT 97
[2021-01-16 08:51] VITALS: BP 115/69; PULSE 74
[2021-01-16] MEDS: Gabapentin 300 MG CAPSULE PO ×3 (08:51→20:08)
[2021-01-16] MEDS: cloNIDine HCL 0.1 MG TABLET PO ×2 (08:51→20:07)
[2021-01-16] MEDS: clonazePAM 1 MG TABLET PO ×2 (08:52→20:07)
[2021-01-16] MEDS: ARIPiprazole 5 MG TABLET PO (08:52)
[2021-01-16] MEDS: Magnesium Hydrox/Alum Hydrox 30 ML ORAL.SUSP PO (08:52)
[2021-01-16] MEDS: DULoxetine HCl 30 MG CAPSULE.DR PO (08:52)
[2021-01-16] MEDS: Nicotine Polacrilex 2 MG GUM 4 MG BUCCAL ×3 (09:46→20:09)
[2021-01-16 09:48] LABS: Folate 16.4 ng/mL (> or = 4.0); Vitamin B12 716 pg/mL (200-900)
[2021-01-16 11:17] LABS: Estimated Average Glucose 97 mg/dL
--- NOTE | 2021-01-16 12:27 | HO.PSYCHPN ---
Subjective Subjective Date of Service: 01/16/21 Reason For Visit: Schizophrenia, Opiate,Benzodiazepine,Cannabis Use Subjective Notes: Conditional Voluntary Healthcare Proxy: No Guardianship: No Medical Problems Affecting Mental Status: No Interim History: Tolerating medication changes thus far without adverse effects he reports. EKG, diagnostics WNL. Reporting pain in knees, hands (hx of sports injuries)-asks for prn cyclobenzaprine 10 mg as he finds it to be helpful in symptom mgt. Denies SI, HI. Reports improvement in anxiety and mood-comments Abilify helps like Seroquel without the excess sedation. Reports anxiety is significantly improved. Medication Compliance: Yes Side effects from medications: No Attending Groups: Yes Review of Systems Acute medical concerns: No Medical Review of Systems: unchanged Review of Systems Psychiatric: Reports anxiety (improved per pt report), Reports panic attacks (improved per pt report), Reports paranoia (abilify initiated) and Reports suicidal ideation (denies) Mental Status Exam Mental Status Exam Patient Appearance: Appropriate Patient Orientation: Person, Place, Time and Situation Level of Consciousness: Alert Patient Behavior: Appropriate, Talkative, Cooperative and Good Eye Contact Mood Description: Anxious Affect Description: Anxious Patient Cognition Impaired: No Ability to Follow Directions: Fair Speech Pattern: Clear, Appropriate and Spontaneous Speech Memory Description: Episodic Impaired Hallucinations: None (denies) Delusions: Paranoid Ideation (reports decreased) Perceptual Disturbances: Depersonalization and Derealization Thought Process: Distracted Thought Content: positive for [place] and positive for Circumstantial Depressive Symptoms: Increased Anxiety, Diff. Making Decisions, Thoughts of /Suicide (denies) and Difficulty Concentrating Judgement: Fair Diagnostics Vital Signs (24Hr): Vital Signs - 24 hr 01/15/21 20:10 01/15/21 20:15 01/15/21 20:17 Temperature 97.7 F Pulse Rate 94 94 94 Respiratory Rate Blood Pressure 137/82 137/82 137/82 Pulse Oximetry 01/16/21 06:30 01/16/21 08:45 01/16/21 08:51 Temperature 97.6 F Pulse Rate 71 74 74 Respiratory Rate 14 Blood Pressure 93/53 L 115/69 115/69 Pulse Oximetry 98 97 Body Mass Index 20.4 Labs Results: 01/12/21 19:13 01/15/21 07:26 Labs: Laboratory Results - last 48 hr 01/15/21 01/16/21 01/16/21 07:26 07:55 07:55 Sodium 144 Potassium 4.0 Chloride 106 Carbon Dioxide 30 H Anion Gap 12 BUN 13 Creatinine 1.13 Estim Creat Clear Calc 131.5 Estimated GFR > 60 Fasting Glucose 97 Estimat Average Glucose 97 Hemoglobin A1c % 5.0 Calcium 9.8 Total Bilirubin 1.1 H AST 17 ALT 19 Alkaline Phosphatase 84 Total Protein 7.1 Albumin 4.7 Triglycerides 124 Cholesterol 197 LDL Cholesterol, Calc 137 HDL Cholesterol 36 Vitamin B12 716 Folate 16.4 TSH 1.39 Medications Medications Current Medications Generic Name Dose Route Start Last Admin Trade Name Freq PRN Reason Stop Dose Admin Acetaminophen 650 mg 01/14/21 00:53 01/14/21 13:12 Acetaminophen 325 Mg Tablet PO 650 mg Q6H PRN Administration Headache/Pain Mild Scale (1-3) Al Hydroxide/Mg Hydroxide 30 ml 01/14/21 00:53 01/16/21 08:52 Magnesium Hydrox/Alum Hydrox 30 Ml Oral.Susp PO 30 ml Q6H PRN Administration Heartburn/Nausea Aripiprazole 5 mg 01/16/21 09:00 01/16/21 08:52 Aripiprazole 5 Mg Tablet PO 5 mg DAILY COLIN Administration Clonazepam 1 mg 01/15/21 21:00 01/16/21 08:52 Clonazepam 1 Mg Tablet PO 1 mg BID COLIN Administration Clonidine HCl 0.1 mg 01/12/21 23:15 01/16/21 08:51 Clonidine Hcl 0.1 Mg Tablet PO 0.1 mg BID COLIN Administration Protocol Duloxetine HCl 30 mg 01/13/21 09:00 01/16/21 08:52 Duloxetine Hcl 30 Mg Capsule.Dr PO 30 mg DAILY COLIN Administration Gabapentin 300 mg 01/12/21 23:15 01/16/21 08:51 Gabapentin 300 Mg Capsule PO 300 mg TID COLIN Administration Hydroxyzine HCl 25 mg 01/14/21 00:53 Hydroxyzine Hcl 25 Mg Tablet PO BEDTIME PRN Anxiety Magnesium Hydroxide 30 ml 01/14/21 00:53 Milk Of Magnesia 30 Ml Oral.Susp PO DAILY PRN Constipation Methadone HCl 80 mg 01/16/21 06:30 01/16/21 06:47 Methadone Hcl 20 Mg/2 Ml Oral.Conc PO 80 mg DAILY@0630 COLIN Administration Nicotine Polacrilex 4 mg 01/15/21 09:33 01/16/21 09:46 Nicotine Polacrilex 2 Mg Gum BUCCAL 4 mg Q2H PRN Administration Nicotine Cravings Omeprazole 20 mg 01/16/21 06:30 01/16/21 06:47 Omeprazole 20 Mg Capsule. PO 20 mg DAILY@0630 COLIN Administration Prazosin HCl 1 mg 01/15/21 21:00 01/15/21 20:15 Prazosin Hcl 1 Mg Capsule PO 1 mg BEDTIME COLIN Administration Protocol Quetiapine Fumarate 150 mg 01/15/21 21:00 01/15/21 20:15 Quetiapine Fumarate 50 Mg Tablet PO 150 mg BEDTIME COLIN Administration Trazodone HCl 50 mg 01/14/21 00:53 01/14/21 20:14 Trazodone Hcl 50 Mg Tablet PO 50 mg BEDTIME PRN Administration Insomnia Allergies Allergies Allergy/AdvReac Type Severity Reaction Status Date / Time No Known Allergies Allergy Verified 01/12/21 14:30 [No Known Allergies*] Assessment & Plan Assessment & Plan (1) Schizophrenia: Status: Acute Code(s): F20.9 - Schizophrenia, unspecified Assessment and Plan: 20 yo male, presents with psychosis and substance abuse. Family reports psychosis and delusional sx for several months along with methadone maintenance, daily cannabis use with hyperemesis and daily benzodiazepine use. Pt today asks for scheduled benzodiazepines to manage anxiety. [facility] not responding to requests to validate dosage of Methadone. Discussed [facility] goals with pt to day and options to manage anxiety, panic 1. Continue Klonopin 1 mg bid 2. Continue Seroquel 150 mg HS 3. Continue Abilify 5 mg a.m. in trial to prepare for IM of Abilify Maintena. 4. Cyclobenzaprine 10 mg daily prn knee pain (initiated at [facility]-pt found it helpful for pain mgt due to hx of several sports related injuried). (2) Panic disorder: Status: Acute Code(s): F41.0 - Panic disorder [episodic paroxysmal anxiety] Assessment and Plan: Trial of Klonopin 1 mg bid. Prepare for [employer] party mgt of medication upon discharge (3) Opioid use disorder, severe, on maintenance therapy: Status: Acute Code(s): F11.20 - Opioid dependence, uncomplicated Assessment and Plan: Continue Methadone (4) Cannabis use disorder, severe, dependence: Status: Acute Code(s): F12.20 - Cannabis dependence, uncomplicated (5) Severe benzodiazepine use disorder: Status: Acute Code(s): F13.20 - Sedative, hypnotic or anxiolytic dependence, uncomplicated Assessment and Plan: Trial of scheduled Klonopin for panic symptom mgt while inpatient Greater than 50% of the session was spent on counseling and/or coordination of care Reason for contiued inpatient stay Substantial Risk for: harm to self, harm to others, inability to function and rapid decompensation
[2021-01-16 18:00] VITALS: BP 125/67; PULSE 74; TEMP 36.5
[2021-01-16 20:07] VITALS: BP 125/67; PULSE 74
[2021-01-16 20:08] VITALS: BP 125/67; PULSE 74
[2021-01-16] MEDS: Prazosin HCL 1 MG CAPSULE PO (20:08)
[2021-01-16] MEDS: QUEtiapine Fumarate 50 MG TABLET 150 MG PO (20:08)
[2021-01-16] MEDS: traZODone HCL 50 MG TABLET PO (20:08)
[2021-01-16] MEDS: hydrOXYzine HCL 25 MG TABLET PO (20:08)
[2021-01-17] MEDS: methADONE HCl 20 MG/2 ML ORAL.CONC 80 MG PO (06:21)
[2021-01-17] MEDS: Omeprazole 20 MG CAPSULE.DR PO ×2 (06:22→16:14)
[2021-01-17 06:46] VITALS: BP 129/69; PULSE 64; TEMP 37; O2SAT 99
[2021-01-17 07:00] VITALS: BMI 21.4
[2021-01-17 08:29] VITALS: BP 117/72; PULSE 72
[2021-01-17] MEDS: Gabapentin 300 MG CAPSULE PO ×3 (08:29→20:02)
[2021-01-17] MEDS: DULoxetine HCl 30 MG CAPSULE.DR PO (08:29)
[2021-01-17] MEDS: cloNIDine HCL 0.1 MG TABLET PO ×2 (08:29→20:09)
[2021-01-17] MEDS: clonazePAM 1 MG TABLET PO ×2 (08:29→20:02)
[2021-01-17] MEDS: ARIPiprazole 5 MG TABLET PO (08:29)
[2021-01-17] MEDS: Magnesium Hydrox/Alum Hydrox 30 ML ORAL.SUSP PO (08:37)
[2021-01-17] MEDS: Nicotine Polacrilex 2 MG GUM 4 MG BUCCAL ×4 (09:21→22:33)
--- NOTE | 2021-01-17 15:41 | P.PNPSI_ITS ---
Subjective Subjective Date of Service: 01/17/21 Reason For Visit: Schizophrenia, Opiate,Benzodiazepine,Cannabis Use Subjective Notes: Conditional Voluntary Healthcare Proxy: No Guardianship: No Medical Problems Affecting Mental Status: No Interim History: Jeremy reports Abilify is tolerated, non sedating and helpful with clarity. Discussed titration and if tolerated HERRERA trial next week. Pt d iscussed a visit with his father today and his anxiety with the conflicts between his parents. He reports he is planning to live with his mother upon discharge and believes this will be an appropriate plan for him. Discussed the losses endured with addiction and mental illness and is looking for a different more positive outcome so I need to do things differently. Medication Compliance: Yes Side effects from medications: No Attending Groups: Yes Review of Systems Acute medical concerns: No Medical Review of Systems: unchanged Review of Systems Psychiatric: Reports anxiety, Reports paranoia (diminishing- some concern about peers on the unit.) and Reports hallucinations Mental Status Exam Mental Status Exam Patient Appearance: Appropriate Patient Orientation: Person, Place, Time and Situation Level of Consciousness: Alert Patient Behavior: Appropriate, Talkative, Cooperative, Anxious and Distractible Mood Description: Anxious Affect Description: Anxious Patient Cognition Impaired: No Ability to Follow Directions: Good Speech Pattern: Spontaneous Speech Memory Description: Episodic Impaired Hallucinations: None (denies) Delusions: Paranoid Ideation (some concerns about peers and symptoms they are reporting to him) Thought Process: Intact Thought Content: positive for Intact and positive for Circumstantial Depressive Symptoms: Increased Anxiety, Feelings of Guilt (when discussing the ending of relationship with girlfriend) and Thoughts of /Suicide (denies) Judgement: Fair Diagnostics Vital Signs (24Hr): Vital Signs - 24 hr 01/16/21 18:00 01/16/21 20:07 01/16/21 20:08 Temperature 97.7 F Pulse Rate 74 74 74 Blood Pressure 125/67 125/67 125/67 Pulse Oximetry 01/17/21 06:46 01/17/21 08:29 Temperature 98.6 F Pulse Rate 64 72 Blood Pressure 129/69 117/72 Pulse Oximetry 99 Body Mass Index 21.4 Labs Results: 01/12/21 19:13 01/15/21 07:26 Labs: Laboratory Results - last 48 hr 01/16/21 01/16/21 07:55 07:55 Estimat Average Glucose 97 Hemoglobin A1c % 5.0 Vitamin B12 716 Folate 16.4 Medications Medications Current Medications Generic Name Dose Route Start Last Admin Trade Name Freq PRN Reason Stop Dose Admin Acetaminophen 650 mg 01/14/21 00:53 01/14/21 13:12 Acetaminophen 325 Mg Tablet PO 650 mg Q6H PRN Administration Headache/Pain Mild Scale (1-3) Al Hydroxide/Mg Hydroxide 30 ml 01/14/21 00:53 01/17/21 08:37 Magnesium Hydrox/Alum Hydrox 30 Ml Oral.Susp PO 30 ml Q6H PRN Administration Heartburn/Nausea Aripiprazole 5 mg 01/16/21 09:00 01/17/21 08:29 Aripiprazole 5 Mg Tablet PO 5 mg DAILY COLIN Administration Clonazepam 1 mg 01/15/21 21:00 01/17/21 08:29 Clonazepam 1 Mg Tablet PO 1 mg BID COLIN Administration Clonidine HCl 0.1 mg 01/12/21 23:15 01/17/21 08:29 Clonidine Hcl 0.1 Mg Tablet PO 0.1 mg BID COLIN Administration Protocol Cyclobenzaprine HCl 10 mg 01/16/21 13:37 Cyclobenzaprine Hcl 10 Mg Tablet PO BEDTIME PRN Pain, Mild (Pain Scale 1-3) Duloxetine HCl 30 mg 01/13/21 09:00 01/17/21 08:29 Duloxetine Hcl 30 Mg Capsule. PO 30 mg DAILY COLIN Administration Gabapentin 300 mg 01/12/21 23:15 01/17/21 14:06 Gabapentin 300 Mg Capsule PO 300 mg TID COLIN Administration Hydroxyzine HCl 25 mg 01/14/21 00:53 01/16/21 20:08 Hydroxyzine Hcl 25 Mg Tablet PO 25 mg BEDTIME PRN Administration Anxiety Magnesium Hydroxide 30 ml 01/14/21 00:53 Milk Of Magnesia 30 Ml Oral.Susp PO DAILY PRN Constipation Methadone HCl 80 mg 01/16/21 06:30 01/17/21 06:21 Methadone Hcl 20 Mg/2 Ml Oral.Conc PO 80 mg DAILY@30 COLIN Administration Nicotine Polacrilex 4 mg 01/15/21 09:33 01/17/21 13:14 Nicotine Polacrilex 2 Mg Gum BUCCAL 4 mg Q2H PRN Administration Nicotine Cravings Omeprazole 20 mg 01/16/21 06:30 01/17/21 06:22 Omeprazole 20 Mg Capsule. PO 20 mg DAILY@0630 COLIN Administration Prazosin HCl 1 mg 01/15/21 21:00 01/16/21 20:08 Prazosin Hcl 1 Mg Capsule PO 1 mg BEDTIME COLIN Administration Protocol Quetiapine Fumarate 150 mg 01/15/21 21:00 01/16/21 20:08 Quetiapine Fumarate 50 Mg Tablet PO 150 mg BEDTIME COLIN Administration Trazodone HCl 50 mg 01/14/21 00:53 01/16/21 20:08 Trazodone Hcl 50 Mg Tablet PO 50 mg BEDTIME PRN Administration Insomnia Allergies Allergies Allergy/AdvReac Type Severity Reaction Status Date / Time No Known Allergies Allergy Verified 01/12/21 14:30 [No Known Allergies*] Assessment & Plan Assessment & Plan (1) Schizophrenia: Status: Acute Code(s): F20.9 - Schizophrenia, unspecified Assessment and Plan: 20 yo male, presents with psychosis and substance abuse. Family reports psychosis and delusional sx for several months along with methadone maintenance, daily cannabis use with hyperemesis and daily benzodiazepine use. Pt today asks for scheduled benzodiazepines to manage anxiety. [facility] not responding to requests to validate dosage of Methadone. 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 Continue Klonopin 1 mg bid 2. Continue Seroquel 150 mg HS 3. Continue Abilify 5 mg a.m. in trial to prepare for IM of Abilify Maintena. 4. ContinueCyclobenzaprine 10 mg daily prn knee pain (initiated at [facility]-pt found it helpful for pain mgt due to hx of several sports related injuried). 5. Increase Prilosec to bid 6. Increase Abilify to 10 mg daily on 01/18/21. 7. Change timing of Methadone dosing to 0900. (2) Panic disorder: Status: Acute Code(s): F41.0 - Panic disorder [episodic paroxysmal anxiety] Assessment and Plan: Trial of Klonopin 1 mg bid. Prepare for [employer] party mgt of medication upon discharge (3) Opioid use disorder, severe, on maintenance therapy: Status: Acute Code(s): F11.20 - Opioid dependence, uncomplicated Assessment and Plan: Continue Methadone (4) Cannabis use disorder, severe, dependence: Status: Acute Code(s): F12.20 - Cannabis dependence, uncomplicated (5) Severe benzodiazepine use disorder: Status: Acute Code(s): F13.20 - Sedative, hypnotic or anxiolytic dependence, uncomplicated Assessment and Plan: Trial of scheduled Klonopin for panic symptom mgt while inpatient Greater than 50% of the session was spent on counseling and/or coordination of care Reason for contiued inpatient stay Substantial Risk for: harm to self, harm to others, inability to function and rapid decompensation
[2021-01-17 18:00] VITALS: BP 134/83; PULSE 81; TEMP 36.5
[2021-01-17 20:01] VITALS: BP 104/55; PULSE 58
[2021-01-17] MEDS: Prazosin HCL 1 MG CAPSULE PO (20:01)
[2021-01-17] MEDS: QUEtiapine Fumarate 50 MG TABLET 150 MG PO (20:04)
[2021-01-17 20:09] VITALS: BP 134/83; PULSE 81
[2021-01-18 06:00] VITALS: BP 136/94; PULSE 79; RESP 18; TEMP 533.3; TEMP 992; O2SAT 100
[2021-01-18 08:20] VITALS: BP 136/94; PULSE 77
[2021-01-18] MEDS: DULoxetine HCl 30 MG CAPSULE.DR PO (08:20)
[2021-01-18] MEDS: Omeprazole 20 MG CAPSULE.DR PO ×2 (08:20→15:49)
[2021-01-18] MEDS: Gabapentin 300 MG CAPSULE PO ×3 (08:20→20:03)
[2021-01-18] MEDS: cloNIDine HCL 0.1 MG TABLET PO ×2 (08:20→20:04)
[2021-01-18] MEDS: clonazePAM 1 MG TABLET PO ×2 (08:20→20:05)
[2021-01-18] MEDS: ARIPiprazole 10 MG TABLET PO (08:20)
[2021-01-18] MEDS: methADONE HCl 20 MG/2 ML ORAL.CONC 80 MG PO (08:23)
[2021-01-18] MEDS: Magnesium Hydrox/Alum Hydrox 30 ML ORAL.SUSP PO (09:00)
[2021-01-18] MEDS: Nicotine Polacrilex 2 MG GUM 4 MG BUCCAL ×3 (09:41→20:03)
--- NOTE | 2021-01-18 15:07 | HO.PSYCHPN ---
Subjective Subjective Date of Service: 01/18/21 Reason For Visit: Schizophrenia, Opiate,Benzodiazepine,Cannabis Use Subjective Notes: Conditional Voluntary Healthcare Proxy: No Guardianship: No Medical Problems Affecting Mental Status: No Interim History: -Reports mid-day breakthrough anxiety. Discussed Depakote trial-will given 250 mg at 12pm to trial. Discussed Abilify Maintena if he continues to tolerate po Abilify and he is in agreement, It will make things easier for me . Reports a.m. nausea if Methadone is held past 0600. Medication Compliance: Yes Side effects from medications: No Attending Groups: Yes Review of Systems Acute medical concerns: No Medical Review of Systems: unchanged Review of Systems Psychiatric: Reports abnormal sleep pattern (difficulty with [id number] change today), Reports anxiety and Reports suicidal ideation (denies) Mental Status Exam Mental Status Exam Patient Appearance: Appropriate Patient Orientation: Person, Place, Time and Situation Level of Consciousness: Alert Patient Behavior: Appropriate and Cooperative Mood Description: Flat Affect Description: Flat Patient Cognition Impaired: No Ability to Follow Directions: Good Speech Pattern: Spontaneous Speech Memory Description: Intact Hallucinations: None Delusions: Paranoid Ideation Thought Process: Goal Oriented Thought Content: positive for Goal Oriented and positive for Suicidal Ideation (denies) Depressive Symptoms: Increased Anxiety and Diff. Making Decisions Judgement: Good Diagnostics Vital Signs (24Hr): Vital Signs - 24 hr 01/17/21 18:00 01/17/21 20:01 01/17/21 20:09 Temperature 97.7 F Pulse Rate 81 58 81 Respiratory Rate Blood Pressure 134/83 104/55 L 134/83 Pulse Oximetry 01/18/21 06:00 01/18/21 08:20 Temperature 992 F H Pulse Rate 79 77 Respiratory Rate 18 Blood Pressure 136/94 H 136/94 H Pulse Oximetry 100 Body Mass Index 21.4 Labs Results: 01/12/21 19:13 01/15/21 07:26 Medications Medications Current Medications Generic Name Dose Route Start Last Admin Trade Name Freq PRN Reason Stop Dose Admin Acetaminophen 650 mg 01/14/21 00:53 01/14/21 13:12 Acetaminophen 325 Mg Tablet PO 650 mg Q6H PRN Administration Headache/Pain Mild Scale (1-3) Al Hydroxide/Mg Hydroxide 30 ml 01/14/21 00:53 01/18/21 09:00 Magnesium Hydrox/Alum Hydrox 30 Ml Oral.Susp PO 30 ml Q6H PRN Administration Heartburn/Nausea Aripiprazole 10 mg 01/18/21 09:00 01/18/21 08:20 Aripiprazole 10 Mg Tablet PO 10 mg DAILY COLIN Administration Clonazepam 1 mg 01/15/21 21:00 01/18/21 08:20 Clonazepam 1 Mg Tablet PO 1 mg BID COLIN Administration Clonidine HCl 0.1 mg 01/12/21 23:15 01/18/21 08:20 Clonidine Hcl 0.1 Mg Tablet PO 0.1 mg BID COLIN Administration Protocol Cyclobenzaprine HCl 10 mg 01/16/21 13:37 Cyclobenzaprine Hcl 10 Mg Tablet PO BEDTIME PRN Pain, Mild (Pain Scale 1-3) Divalproex Sodium 250 mg 01/19/21 12:00 Divalproex Sodium 250 Mg Tablet. PO 1200 COLIN Duloxetine HCl 30 mg 01/13/21 09:00 01/18/21 08:20 Duloxetine Hcl 30 Mg Capsule. PO 30 mg DAILY COLIN Administration Gabapentin 300 mg 01/12/21 23:15 01/18/21 14:55 Gabapentin 300 Mg Capsule PO 300 mg TID COLIN Administration Hydroxyzine HCl 25 mg 01/14/21 00:53 01/16/21 20:08 Hydroxyzine Hcl 25 Mg Tablet PO 25 mg BEDTIME PRN Administration Anxiety Magnesium Hydroxide 30 ml 01/14/21 00:53 Milk Of Magnesia 30 Ml Oral.Susp PO DAILY PRN Constipation Methadone HCl 80 mg 01/18/21 09:00 01/18/21 08:23 Methadone Hcl 20 Mg/2 Ml Oral.Conc PO 80 mg DAILY@0900 COLIN Administration Nicotine Polacrilex 4 mg 01/15/21 09:33 01/18/21 09:41 Nicotine Polacrilex 2 Mg Gum BUCCAL 4 mg Q2H PRN Administration Nicotine Cravings Omeprazole 20 mg 01/17/21 16:30 01/18/21 08:20 Omeprazole 20 Mg Capsule. PO 20 mg BID@0600,1630 COLIN Administration Prazosin HCl 1 mg 01/15/21 21:00 01/17/21 20:01 Prazosin Hcl 1 Mg Capsule PO 1 mg BEDTIME COLIN Administration Protocol Promethazine HCl 25 mg 01/18/21 15:02 Promethazine Hcl 25 Mg Tablet PO DAILY PRN Nausea Quetiapine Fumarate 150 mg 01/15/21 21:00 01/17/21 20:04 Quetiapine Fumarate 50 Mg Tablet PO 150 mg BEDTIME COLIN Administration Trazodone HCl 50 mg 01/14/21 00:53 01/16/21 20:08 Trazodone Hcl 50 Mg Tablet PO 50 mg BEDTIME PRN Administration Insomnia Allergies Allergies Allergy/AdvReac Type Severity Reaction Status Date / Time No Known Allergies Allergy Verified 01/12/21 14:30 [No Known Allergies*] Assessment & Plan Assessment & Plan (1) Schizophrenia: Status: Acute Code(s): F20.9 - Schizophrenia, unspecified Assessment and Plan: 20 yo male, presents with psychosis, anxiety, and substance abuse. Family reports psychosis and delusional sx for several months along with methadone maintenance, daily cannabis use with hyperemesis and daily benzodiazepine use. Pt today asks for scheduled benzodiazepines to manage anxiety. Mother, with whom he will live with after discharge, will dispense daily. -Continues to report mid-day anxiety-Depakote 250 mg 1200. -Promethazine 25 mg daily prn nausea (pt experiences this as he cannot have methadone at 6am). -Continue regime -If po Abilify continues to be tolerated, Abilify Maintena trial next week. (2) Panic disorder: Status: Acute Code(s): F41.0 - Panic disorder [episodic paroxysmal anxiety] Assessment and Plan: Trial of Klonopin 1 mg bid. Prepare for third [employer] party mgt of medication upon discharge- mother is in agreement Depakote 250 mg 1200. (3) Opioid use disorder, severe, on maintenance therapy: Status: Acute Code(s): F11.20 - Opioid dependence, uncomplicated Assessment and Plan: Continue Methadone (4) Cannabis use disorder, severe, dependence: Status: Acute Code(s): F12.20 - Cannabis dependence, uncomplicated Assessment and Plan: Discussed hyperemesis as SE of use (5) Severe benzodiazepine use disorder: Status: Acute Code(s): F13.20 - Sedative, hypnotic or anxiolytic dependence, uncomplicated Assessment and Plan: Trial of scheduled Klonopin for panic symptom mgt while inpatient Greater than 50% of the session was spent on counseling and/or coordination of care Patient educated on: medication risk/benefits, substance abuse and therapeutic strategies Informed Consent: understands Reason for contiued inpatient stay Substantial Risk for: harm to self, inability to function and rapid decompensation
[2021-01-18 18:00] VITALS: BP 129/83; PULSE 76; TEMP 36.7
[2021-01-18 20:03] VITALS: BP 129/83; PULSE 76
[2021-01-18] MEDS: Prazosin HCL 1 MG CAPSULE PO (20:03)
[2021-01-18 20:04] VITALS: BP 129/83; PULSE 76
[2021-01-18] MEDS: QUEtiapine Fumarate 50 MG TABLET 150 MG PO (20:04)
[2021-01-18] MEDS: Cyclobenzaprine HCl 10 MG TABLET PO (20:09)
[2021-01-19 06:00] VITALS: BP 121/68; PULSE 66; RESP 16; TEMP 35.8; O2SAT 100
[2021-01-19] MEDS: Omeprazole 20 MG CAPSULE.DR PO ×2 (07:54→16:19)
[2021-01-19] MEDS: ARIPiprazole 10 MG TABLET PO (08:09)
[2021-01-19] MEDS: clonazePAM 1 MG TABLET PO ×2 (08:09→19:59)
[2021-01-19] MEDS: DULoxetine HCl 30 MG CAPSULE.DR PO (08:09)
[2021-01-19] MEDS: Gabapentin 300 MG CAPSULE PO ×3 (08:09→19:59)
[2021-01-19 08:10] VITALS: BP 138/92; PULSE 68
[2021-01-19] MEDS: cloNIDine HCL 0.1 MG TABLET PO ×2 (08:10→19:58)
[2021-01-19] MEDS: methADONE HCl 20 MG/2 ML ORAL.CONC 80 MG PO (08:12)
[2021-01-19] MEDS: Nicotine Polacrilex 2 MG GUM 4 MG BUCCAL ×5 (10:00→20:04)
--- NOTE | 2021-01-19 10:36 | HO.PSYCHPN ---
Subjective Subjective Date of Service: 01/19/21 Reason For Visit: Schizophrenia, Opiate,Benzodiazepine,Cannabis Use Subjective Notes: Conditional Voluntary Interim History: pt reports some anxiety during the day- less today. slept well; denies side effects.NO SI Medication Compliance: Yes Side effects from medications: No Attending Groups: Intermittent Review of Systems Acute medical concerns: No Medical Review of Systems: unchanged Review of Systems Review of Systems Constitutional: No Fever, No Chills ENT/Mouth: No sore throat, No Rhinorrhea, No Swallowing Difficulty Cardiovascular: No Chest Pain, No SOB, No Orthopnea, No Edema Respiratory: No Cough, No Sputum, No Wheezing, No dyspnea Gastrointestinal: + Nausea, + Vomiting, No Diarrhea, No abdominal Pain, No Hematochezia, No Melena Genitourinary: No Dysuria, No Urinary Frequency, No Hematuria Musculoskeletal: No joint pain, No Myalgias Skin: No Skin Lesions, No rash Neuro: No Weakness, No Numbness, No Dizziness, No Headache Psych: + Anxiety/Panic, + Depression , No SI, No HI, No VH, No AH Heme/Lymph: No Bruising, No Lymphadenopathy Eyes: Reports as per HPI Reports behavioral changes Psychiatric: Reports abnormal sleep pattern (difficulty with [id number] change today), Reports anxiety, Reports behavioral changes, Reports depression, Reports difficulty concentrating, Reports auditory hallucinations, Reports hopelessness, Reports irritability, Reports anhedonia, Reports mood swings, Reports panic attacks (improved per pt report), Reports paranoia (diminishing- some concern about peers on the unit.), Reports hallucinations and Reports suicidal ideation (denies) Mental Status Exam Mental Status Exam Patient Appearance: Appropriate Patient Orientation: Person, Place, Time and Situation Level of Consciousness: Alert Patient Behavior: Appropriate and Cooperative Mood Description: Flat Affect Description: Flat Patient Cognition Impaired: No Ability to Follow Directions: Good Speech Pattern: Spontaneous Speech Memory Description: Intact Hallucinations: Auditory Thought Process: Distracted Depressive Symptoms: Increased Anxiety Judgement: Fair Diagnostics Vital Signs (24Hr): Vital Signs - 24 hr 01/18/21 18:00 01/18/21 20:03 01/18/21 20:04 Temperature 98.1 F Pulse Rate 76 76 76 Respiratory Rate Blood Pressure 129/83 129/83 129/83 Pulse Oximetry 01/19/21 06:00 01/19/21 08:10 Temperature 96.4 F L Pulse Rate 66 68 Respiratory Rate 16 Blood Pressure 121/68 138/92 H Pulse Oximetry 100 Body Mass Index 21.4 Labs Results: 01/12/21 19:13 01/15/21 07:26 Medications Medications Current Medications Generic Name Dose Route Start Last Admin Trade Name Freq PRN Reason Stop Dose Admin Acetaminophen 650 mg 01/14/21 00:53 01/14/21 13:12 Acetaminophen 325 Mg Tablet PO 650 mg Q6H PRN Administration Headache/Pain Mild Scale (1-3) Al Hydroxide/Mg Hydroxide 30 ml 01/14/21 00:53 01/18/21 09:00 Magnesium Hydrox/Alum Hydrox 30 Ml Oral.Susp PO 30 ml Q6H PRN Administration Heartburn/Nausea Aripiprazole 10 mg 01/18/21 09:00 01/19/21 08:09 Aripiprazole 10 Mg Tablet PO 10 mg DAILY COLIN Administration Clonazepam 1 mg 01/15/21 21:00 01/19/21 08:09 Clonazepam 1 Mg Tablet PO 1 mg BID COLIN Administration Clonidine HCl 0.1 mg 01/12/21 23:15 01/19/21 08:10 Clonidine Hcl 0.1 Mg Tablet PO 0.1 mg BID COLIN Administration Protocol Cyclobenzaprine HCl 10 mg 01/16/21 13:37 01/18/21 20:09 Cyclobenzaprine Hcl 10 Mg Tablet PO 10 mg BEDTIME PRN Administration Pain, Mild (Pain Scale 1-3) Divalproex Sodium 250 mg 01/19/21 12:00 Divalproex Sodium 250 Mg Tablet. PO 1200 [facility] Duloxetine HCl 30 mg 01/13/21 09:00 01/19/21 08:09 Duloxetine Hcl 30 Mg Capsule. PO 30 mg DAILY COLIN Administration Gabapentin 300 mg 01/12/21 23:15 01/19/21 08:09 Gabapentin 300 Mg Capsule PO 300 mg TID COLIN Administration Hydroxyzine HCl 25 mg 01/14/21 00:53 01/16/21 20:08 Hydroxyzine Hcl 25 Mg Tablet PO 25 mg BEDTIME PRN Administration Anxiety Magnesium Hydroxide 30 ml 01/14/21 00:53 Milk Of Magnesia 30 Ml Oral.Susp PO DAILY PRN Constipation Methadone HCl 80 mg 01/18/21 09:00 01/19/21 08:12 Methadone Hcl 20 Mg/2 Ml Oral.Conc PO 80 mg DAILY@0900 COLIN Administration Nicotine Polacrilex 4 mg 01/15/21 09:33 01/19/21 10:00 Nicotine Polacrilex 2 Mg Gum BUCCAL 4 mg Q2H PRN Administration Nicotine Cravings Omeprazole 20 mg 01/17/21 16:30 01/19/21 07:54 Omeprazole 20 Mg Capsule. PO 20 mg BID@0600,1630 COLIN Administration Prazosin HCl 1 mg 01/15/21 21:00 01/18/21 20:03 Prazosin Hcl 1 Mg Capsule PO 1 mg BEDTIME COLIN Administration Protocol Promethazine HCl 25 mg 01/18/21 15:02 Promethazine Hcl 25 Mg Tablet PO DAILY PRN Nausea Quetiapine Fumarate 150 mg 01/15/21 21:00 01/18/21 20:04 Quetiapine Fumarate 50 Mg Tablet PO 150 mg BEDTIME COLIN Administration Trazodone HCl 50 mg 01/14/21 00:53 01/16/21 20:08 Trazodone Hcl 50 Mg Tablet PO 50 mg BEDTIME PRN Administration Insomnia Allergies Allergies Allergy/AdvReac Type Severity Reaction Status Date / Time No Known Allergies Allergy Verified 01/12/21 14:30 [No Known Allergies*] Assessment & Plan Assessment & Plan (1) Schizophrenia: Status: Acute Code(s): F20.9 - Schizophrenia, unspecified Assessment and Plan: 20 yo male, presents with psychosis, anxiety, and substance abuse. Family reports psychosis and delusional sx for several months along with methadone maintenance, daily cannabis use with hyperemesis and daily benzodiazepine use. Pt today asks for scheduled benzodiazepines to manage anxiety. Mother, with whom he will live with after discharge, will dispense daily. -Continues to report mid-day anxiety-Depakote 250 mg 1200. -Promethazine 25 mg daily prn nausea (pt experiences this as he cannot have methadone at 6am). -Continue regime -If po Abilify continues to be tolerated, Abilify Maintena trial next week. (2) Panic disorder: Status: Acute Code(s): F41.0 - Panic disorder [episodic paroxysmal anxiety] Assessment and Plan: Trial of Klonopin 1 mg bid. Prepare for [employer] mgt of medication upon discharge- mother is in agreement Depakote 250 mg 1200. (3) Opioid use disorder, severe, on maintenance therapy: Status: Acute Code(s): F11.20 - Opioid dependence, uncomplicated Assessment and Plan: Continue Methadone (4) Cannabis use disorder, severe, dependence: Status: Acute Code(s): F12.20 - Cannabis dependence, uncomplicated Assessment and Plan: Discussed hyperemesis as SE of use (5) Severe benzodiazepine use disorder: Status: Acute Code(s): F13.20 - Sedative, hypnotic or anxiolytic dependence, uncomplicated Assessment and Plan: Trial of scheduled Klonopin for panic symptom mgt while inpatient Greater than 50% of the session was spent on counseling and/or coordination of care Patient educated on: medication risk/benefits Informed Consent: understands Reason for contiued inpatient stay Substantial Risk for: inability to function and rapid decompensation
[2021-01-19] MEDS: Divalproex Sodium 250 MG TABLET.DR PO (12:15)
[2021-01-19 19:55] VITALS: BP 114/60; PULSE 95; TEMP 36.9
[2021-01-19] MEDS: QUEtiapine Fumarate 50 MG TABLET 150 MG PO (19:57)
[2021-01-19 19:58] VITALS: BP 115/81; PULSE 95
[2021-01-19 20:02] VITALS: BP 115/81; PULSE 95
[2021-01-19] MEDS: Prazosin HCL 1 MG CAPSULE PO (20:02)
[2021-01-19] MEDS: Cyclobenzaprine HCl 10 MG TABLET PO (20:03)
[2021-01-20 06:00] VITALS: BP 124/61; PULSE 78; RESP 16; TEMP 36.1; O2SAT 99
--- NOTE | 2021-01-20 07:51 | P.PNPSI_ITS ---
Subjective Subjective Date of Service: 01/20/21 Reason For Visit: Schizophrenia, Opiate,Benzodiazepine,Cannabis Use Subjective Notes: Conditional Voluntary Medical Problems Affecting Mental Status: No Interim History: pt reports less depressed; still moderate anxiety. future oriented. denies side effects-no sedation from depakote Medication Compliance: Yes Side effects from medications: No Attending Groups: Yes Review of Systems Acute medical concerns: No Medical Review of Systems: unchanged Review of Systems Review of Systems unchanged Eyes: Reports as per HPI Reports behavioral changes Psychiatric: Reports abnormal sleep pattern (difficulty with [id number] change today), Reports anxiety, Reports behavioral changes, Reports depression, Reports difficulty concentrating, Reports auditory hallucinations, Reports hopelessness, Reports irritability, Reports anhedonia, Reports mood swings, Reports panic attacks (improved per pt report), Reports paranoia (diminishing- some concern about peers on the unit.), Reports hallucinations and Reports suicidal ideation (denies) Mental Status Exam Mental Status Exam Patient Appearance: Appropriate Patient Orientation: Person, Place, Time and Situation Level of Consciousness: Alert Patient Behavior: Appropriate and Cooperative Mood Description: Depressed, Anxious and Flat Affect Description: Flat Patient Cognition Impaired: No Ability to Follow Directions: Good Speech Pattern: Spontaneous Speech Memory Description: Intact Thought Process: Intact and Linear Thought Content: positive for Intact and positive for Logical Judgement: Good Diagnostics Vital Signs (24Hr): Vital Signs - 24 hr 01/19/21 08:10 01/19/21 19:55 01/19/21 19:58 Temperature 98.5 F Pulse Rate 68 95 95 Respiratory Rate Blood Pressure 138/92 H 114/60 115/81 Pulse Oximetry 01/19/21 20:02 01/20/21 06:00 Temperature 97 F Pulse Rate 95 78 Respiratory Rate 16 Blood Pressure 115/81 124/61 Pulse Oximetry 99 Body Mass Index 21.4 Labs Results: 01/12/21 19:13 01/15/21 07:26 Medications Medications Current Medications Generic Name Dose Route Start Last Admin Trade Name Freq PRN Reason Stop Dose Admin Acetaminophen 650 mg 01/14/21 00:53 01/14/21 13:12 Acetaminophen 325 Mg Tablet PO 650 mg Q6H PRN Administration Headache/Pain Mild Scale (1-3) Al Hydroxide/Mg Hydroxide 30 ml 01/14/21 00:53 01/18/21 09:00 Magnesium Hydrox/Alum Hydrox 30 Ml Oral.Susp PO 30 ml Q6H PRN Administration Heartburn/Nausea Aripiprazole 10 mg 01/18/21 09:00 01/19/21 08:09 Aripiprazole 10 Mg Tablet PO 10 mg DAILY COLIN Administration Clonazepam 1 mg 01/15/21 21:00 01/19/21 19:59 Clonazepam 1 Mg Tablet PO 1 mg BID COLIN Administration Clonidine HCl 0.1 mg 01/12/21 23:15 01/19/21 19:58 Clonidine Hcl 0.1 Mg Tablet PO 0.1 mg BID COLIN Administration Protocol Cyclobenzaprine HCl 10 mg 01/16/21 13:37 01/19/21 20:03 Cyclobenzaprine Hcl 10 Mg Tablet PO 10 mg BEDTIME PRN Administration Pain, Mild (Pain Scale 1-3) Divalproex Sodium 250 mg 01/19/21 12:00 01/19/21 12:15 Divalproex Sodium 250 Mg Tablet. PO 250 mg 1200 COLIN Administration Duloxetine HCl 30 mg 01/13/21 09:00 01/19/21 08:09 Duloxetine Hcl 30 Mg Capsule. PO 30 mg DAILY COLIN Administration Gabapentin 300 mg 01/12/21 23:15 01/19/21 19:59 Gabapentin 300 Mg Capsule PO 300 mg TID COLIN Administration Hydroxyzine HCl 25 mg 01/14/21 00:53 01/16/21 20:08 Hydroxyzine Hcl 25 Mg Tablet PO 25 mg BEDTIME PRN Administration Anxiety Magnesium Hydroxide 30 ml 01/14/21 00:53 Milk Of Magnesia 30 Ml Oral.Susp PO DAILY PRN Constipation Methadone HCl 80 mg 01/18/21 09:00 01/19/21 08:12 Methadone Hcl 20 Mg/2 Ml Oral.Conc PO 80 mg DAILY@0900 COLIN Administration Nicotine Polacrilex 4 mg 01/15/21 09:33 01/19/21 20:04 Nicotine Polacrilex 2 Mg Gum BUCCAL 4 mg Q2H PRN Administration Nicotine Cravings Omeprazole 20 mg 01/17/21 16:30 01/19/21 16:19 Omeprazole 20 Mg Capsule. PO 20 mg BID@0600,1630 COLIN Administration Prazosin HCl 1 mg 01/15/21 21:00 01/19/21 20:02 Prazosin Hcl 1 Mg Capsule PO 1 mg BEDTIME COLIN Administration Protocol Promethazine HCl 25 mg 01/18/21 15:02 Promethazine Hcl 25 Mg Tablet PO DAILY PRN Nausea Quetiapine Fumarate 150 mg 01/15/21 21:00 01/19/21 19:57 Quetiapine Fumarate 50 Mg Tablet PO 150 mg BEDTIME COLIN Administration Trazodone HCl 50 mg 01/14/21 00:53 01/16/21 20:08 Trazodone Hcl 50 Mg Tablet PO 50 mg BEDTIME PRN Administration Insomnia Allergies Allergies Allergy/AdvReac Type Severity Reaction Status Date / Time No Known Allergies Allergy Verified 01/12/21 14:30 [No Known Allergies*] Assessment & Plan Assessment & Plan (1) Schizophrenia: Status: Acute Code(s): F20.9 - Schizophrenia, unspecified Assessment and Plan: 20 yo male, presents with psychosis, anxiety, and substance abuse. Family reports psychosis and delusional sx for several months along with methadone maintenance, daily cannabis use with hyperemesis and daily benzodiazepine use. Pt today asks for scheduled benzodiazepines to manage anxiety. Mother, with whom he will live with after discharge, will dispense daily. -Continues to report mid-day anxiety-Depakote 250 mg 1200. -Promethazine 25 mg daily prn nausea (pt experiences this as he cannot have methadone at 6am). -Continue regime -If po Abilify continues to be tolerated, Abilify Maintena trial next week. (2) Panic disorder: Status: Acute Code(s): F41.0 - Panic disorder [episodic paroxysmal anxiety] Assessment and Plan: Trial of Klonopin 1 mg bid. Prepare for third green party mgt of medication upon discharge- mother is in agreement Depakote 250 mg 1200. (3) Opioid use disorder, severe, on maintenance therapy: Status: Acute Code(s): F11.20 - Opioid dependence, uncomplicated Assessment and Plan: Continue Methadone (4) Cannabis use disorder, severe, dependence: Status: Acute Code(s): F12.20 - Cannabis dependence, uncomplicated Assessment and Plan: Discussed hyperemesis as SE of use (5) Severe benzodiazepine use disorder: Status: Acute Code(s): F13.20 - Sedative, hypnotic or anxiolytic dependence, uncomplicated Assessment and Plan: Trial of scheduled Klonopin for panic symptom mgt while inpatient Assessment and Plan: Continue treatment plan as is Greater than 50% of the session was spent on counseling and/or coordination of care Reason for contiued inpatient stay Substantial Risk for: harm to self, inability to function and med/psych decompensation
[2021-01-20] MEDS: ARIPiprazole 10 MG TABLET PO (08:32)
[2021-01-20] MEDS: Omeprazole 20 MG CAPSULE.DR PO ×2 (08:32→16:32)
[2021-01-20 08:33] VITALS: BP 121/61; PULSE 78
[2021-01-20] MEDS: DULoxetine HCl 30 MG CAPSULE.DR PO (08:33)
[2021-01-20] MEDS: clonazePAM 1 MG TABLET PO ×2 (08:33→21:16)
[2021-01-20] MEDS: cloNIDine HCL 0.1 MG TABLET PO ×2 (08:33→21:17)
[2021-01-20] MEDS: Gabapentin 300 MG CAPSULE PO ×3 (08:34→21:16)
[2021-01-20] MEDS: Promethazine HCL 25 MG TABLET PO (08:34)
[2021-01-20] MEDS: methADONE HCl 20 MG/2 ML ORAL.CONC 80 MG PO (08:34)
[2021-01-20] MEDS: Nicotine Polacrilex 2 MG GUM 4 MG BUCCAL ×4 (10:14→21:17)
[2021-01-20] MEDS: Divalproex Sodium 250 MG TABLET.DR PO (11:57)
[2021-01-20 17:02] VITALS: BP 111/55; PULSE 66; RESP 18; TEMP 36.8; O2SAT 97
[2021-01-20] MEDS: Cyclobenzaprine HCl 10 MG TABLET PO (21:14)
[2021-01-20 21:15] VITALS: BP 127/72; PULSE 79
[2021-01-20] MEDS: Prazosin HCL 1 MG CAPSULE PO (21:15)
[2021-01-20] MEDS: QUEtiapine Fumarate 50 MG TABLET 150 MG PO (21:16)
[2021-01-20 21:17] VITALS: BP 127/72; PULSE 79
[2021-01-21 06:00] VITALS: BP 112/72; PULSE 74; RESP 16; TEMP 36.2; O2SAT 98
[2021-01-21] MEDS: Omeprazole 20 MG CAPSULE.DR PO ×2 (07:19→15:56)
[2021-01-21 08:22] VITALS: BP 112/72; PULSE 74
[2021-01-21] MEDS: methADONE HCl 20 MG/2 ML ORAL.CONC 80 MG PO (08:22)
[2021-01-21] MEDS: clonazePAM 1 MG TABLET PO ×2 (08:22→20:12)
[2021-01-21] MEDS: Gabapentin 300 MG CAPSULE PO ×3 (08:22→20:11)
[2021-01-21] MEDS: DULoxetine HCl 30 MG CAPSULE.DR PO (08:22)
[2021-01-21] MEDS: cloNIDine HCL 0.1 MG TABLET PO ×2 (08:22→20:11)
[2021-01-21] MEDS: ARIPiprazole 10 MG TABLET PO (08:22)
[2021-01-21] MEDS: Promethazine HCL 25 MG TABLET PO (08:22)
[2021-01-21] MEDS: Nicotine Polacrilex 2 MG GUM 4 MG BUCCAL ×3 (10:36→20:17)
[2021-01-21] MEDS: Divalproex Sodium 250 MG TABLET.DR PO (11:35)
--- NOTE | 2021-01-21 12:25 | HO.PSYCHPN ---
Subjective Subjective Date of Service: 01/21/21 Reason For Visit: Schizophrenia, Opiate,Benzodiazepine,Cannabis Use Subjective Notes: Conditional Voluntary Healthcare Proxy: No Guardianship: No Interim History: Team reports pt had a reasonable weekend with appropriate milieu participation and decrease in anxious sx. He had been able to reach out to peers and offer assistance and support while attending and participating in groups. He reports he is feeling prepared to discharge, reports a positive experience with Abilify. Discussed risk/benefit of PO Abilify vs IM. He will continue PO at this time and keep IM [facility] as an option for the future. States his mother will be dispensing medications and she will be feeling more comfortable with Abilify PO vs IM upon discharge. Denies SE, prepared for discharge 01/22. Medication Compliance: Yes Side effects from medications: No Attending Groups: Yes Review of Systems Acute medical concerns: No Medical Review of Systems: unchanged Review of Systems Psychiatric: Reports no additional psychiatric complaints, Reports anxiety (07/11) and Reports suicidal ideation (denies) Mental Status Exam Mental Status Exam Patient Appearance: Appropriate Patient Orientation: Person, Place, Time and Situation Level of Consciousness: Alert Patient Behavior: Appropriate, Talkative and Cooperative Mood Description: Anxious Affect Description: Anxious Patient Cognition Impaired: No Ability to Follow Directions: Good Speech Pattern: Spontaneous Speech Memory Description: Intact Hallucinations: None Delusions: Not Present Thought Process: Goal Oriented Thought Content: positive for Goal Oriented Depressive Symptoms: Increased Anxiety Judgement: Fair Diagnostics Vital Signs (24Hr): Vital Signs - 24 hr 01/20/21 17:02 01/20/21 21:15 01/20/21 21:17 Temperature 98.3 F Pulse Rate 66 79 79 Respiratory Rate 18 Blood Pressure 111/55 L 127/72 127/72 Pulse Oximetry 97 01/21/21 06:00 01/21/21 08:22 Temperature 97.1 F Pulse Rate 74 74 Respiratory Rate 16 Blood Pressure 112/72 112/72 Pulse Oximetry 98 Body Mass Index 21.4 Labs Results: 01/12/21 19:13 01/15/21 07:26 Medications Medications Current Medications Generic Name Dose Route Start Last Admin Trade Name Freq PRN Reason Stop Dose Admin Acetaminophen 650 mg 01/14/21 00:53 01/14/21 13:12 Acetaminophen 325 Mg Tablet PO 650 mg Q6H PRN Administration Headache/Pain Mild Scale (1-3) Al Hydroxide/Mg Hydroxide 30 ml 01/14/21 00:53 01/18/21 09:00 Magnesium Hydrox/Alum Hydrox 30 Ml Oral.Susp PO 30 ml Q6H PRN Administration Heartburn/Nausea Aripiprazole 10 mg 01/18/21 09:00 01/21/21 08:22 Aripiprazole 10 Mg Tablet PO 10 mg DAILY COLIN Administration Clonazepam 1 mg 01/15/21 21:00 01/21/21 08:22 Clonazepam 1 Mg Tablet PO 1 mg BID COLIN Administration Clonidine HCl 0.1 mg 01/12/21 23:15 01/21/21 08:22 Clonidine Hcl 0.1 Mg Tablet PO 0.1 mg BID COLIN Administration Protocol Cyclobenzaprine HCl 10 mg 01/16/21 13:37 01/20/21 21:14 Cyclobenzaprine Hcl 10 Mg Tablet PO 10 mg BEDTIME PRN Administration Pain, Mild (Pain Scale 1-3) Divalproex Sodium 250 mg 01/19/21 12:00 01/21/21 11:35 Divalproex Sodium 250 Mg Tablet. PO 250 mg 1200 COLIN Administration Duloxetine HCl 30 mg 01/13/21 09:00 01/21/21 08:22 Duloxetine Hcl 30 Mg Capsule. PO 30 mg DAILY COLIN Administration Gabapentin 300 mg 01/12/21 23:15 01/21/21 08:22 Gabapentin 300 Mg Capsule PO 300 mg TID COLIN Administration Hydroxyzine HCl 25 mg 01/14/21 00:53 01/16/21 20:08 Hydroxyzine Hcl 25 Mg Tablet PO 25 mg BEDTIME PRN Administration Anxiety Magnesium Hydroxide 30 ml 01/14/21 00:53 Milk Of Magnesia 30 Ml Oral.Susp PO DAILY PRN Constipation Methadone HCl 80 mg 01/18/21 09:00 01/21/21 08:22 Methadone Hcl 20 Mg/2 Ml Oral.Conc PO 80 mg DAILY@0900 COLIN Administration Nicotine Polacrilex 4 mg 01/15/21 09:33 01/21/21 10:36 Nicotine Polacrilex 2 Mg Gum BUCCAL 4 mg Q2H PRN Administration Nicotine Cravings Omeprazole 20 mg 01/17/21 16:30 01/21/21 07:19 Omeprazole 20 Mg Capsule. PO 20 mg BID@0600,1630 COLIN Administration Prazosin HCl 1 mg 01/15/21 21:00 01/20/21 21:15 Prazosin Hcl 1 Mg Capsule PO 1 mg BEDTIME COLIN Administration Protocol Promethazine HCl 25 mg 01/18/21 15:02 01/21/21 08:22 Promethazine Hcl 25 Mg Tablet PO 25 mg DAILY PRN Administration Nausea Quetiapine Fumarate 150 mg 01/15/21 21:00 01/20/21 21:16 Quetiapine Fumarate 50 Mg Tablet PO 150 mg BEDTIME COLIN Administration Trazodone HCl 50 mg 01/14/21 00:53 01/16/21 20:08 Trazodone Hcl 50 Mg Tablet PO 50 mg BEDTIME PRN Administration Insomnia Allergies Allergies Allergy/AdvReac Type Severity Reaction Status Date / Time No Known Allergies Allergy Verified 01/12/21 14:30 [No Known Allergies*] Assessment & Plan Assessment & Plan (1) Schizophrenia: Status: Acute Code(s): F20.9 - Schizophrenia, unspecified Assessment and Plan: 20 yo male, presents with psychosis, anxiety, and substance abuse. Family reports psychosis and delusional sx for several months along with methadone maintenance, daily cannabis use with hyperemesis and daily benzodiazepine use. Pt today asks for scheduled benzodiazepines to manage anxiety. Mother, with whom he will live with after discharge, will dispense daily. -Continue Regime -Discharge 01/22/21. (2) Panic disorder: Status: Acute Code(s): F41.0 - Panic disorder [episodic paroxysmal anxiety] Assessment and Plan: Trial of Klonopin 1 mg bid. Prepare for third republican mgt of medication upon discharge- mother is in agreement Depakote 250 mg 1200. (3) Opioid use disorder, severe, on maintenance therapy: Status: Acute Code(s): F11.20 - Opioid dependence, uncomplicated Assessment and Plan: Continue Methadone (4) Cannabis use disorder, severe, dependence: Status: Acute Code(s): F12.20 - Cannabis dependence, uncomplicated Assessment and Plan: Discussed hyperemesis as SE of use (5) Severe benzodiazepine use disorder: Status: Acute Code(s): F13.20 - Sedative, hypnotic or anxiolytic dependence, uncomplicated Assessment and Plan: Trial of scheduled Klonopin for panic symptom mgt while inpatient Assessment and Plan: Continue treatment plan Greater than 50% of the session was spent on counseling and/or coordination of care Patient educated on: medication risk/benefits and therapeutic strategies Informed Consent: understands Reason for contiued inpatient stay Substantial Risk for: stable for discharge
[2021-01-21 18:00] VITALS: BP 110/68; PULSE 68; RESP 16; TEMP 36.5; O2SAT 98
[2021-01-21 20:11] VITALS: BP 133/77; PULSE 90
[2021-01-21] MEDS: Prazosin HCL 1 MG CAPSULE PO (20:11)
[2021-01-21] MEDS: QUEtiapine Fumarate 50 MG TABLET 150 MG PO (20:12)
[2021-01-21] MEDS: Cyclobenzaprine HCl 10 MG TABLET PO (20:18)
[2021-01-22 06:00] VITALS: BP 140/87; PULSE 76; RESP 16; TEMP 36.1; O2SAT 100
[2021-01-22] MEDS: methADONE HCl 20 MG/2 ML ORAL.CONC 80 MG PO (08:29)
[2021-01-22] MEDS: DULoxetine HCl 30 MG CAPSULE.DR PO (08:30)
[2021-01-22] MEDS: Gabapentin 300 MG CAPSULE PO ×2 (08:30→14:07)
[2021-01-22] MEDS: ARIPiprazole 10 MG TABLET PO (08:30)
[2021-01-22] MEDS: Promethazine HCL 25 MG TABLET PO (08:30)
[2021-01-22] MEDS: Omeprazole 20 MG CAPSULE.DR PO (08:30)
[2021-01-22] MEDS: clonazePAM 1 MG TABLET PO (08:30)
[2021-01-22] MEDS: cloNIDine HCL 0.1 MG TABLET PO (08:30)
[2021-01-22] MEDS: Nicotine Polacrilex 2 MG GUM 4 MG BUCCAL ×2 (09:13→12:03)
[2021-01-22] MEDS: Divalproex Sodium 250 MG TABLET.DR PO (11:34)
--- NOTE | 2021-01-22 14:46 | P.DS_ITS ---
DS: Providers Provider Date of Service: 01/22/21 Date of admission: 01/14/21 00:53 Date of discharge: 01/22/21 Primary care physician: Mykel Marquis MD Admitting clinician: Elizabeth Barrios Attending physician on admission: Riki Che Consults: 01/14/21 00:53 Consult to Hospitalist Routine Consulting Provider: Hospitalist Reason For Exam: admission Attending physician on discharge: Riki Che Discharging clinician: Elizabeth Barrios DS: Diagnosis Discharge Diagnosis (1) Schizophrenia: Status: Acute (2) Panic disorder: Status: Acute (3) Opioid use disorder, severe, on maintenance therapy: Status: Acute (4) Cannabis use disorder, severe, dependence: Status: Acute (5) Severe benzodiazepine use disorder: DS: Medications Discharge Medications Home Medications: Home Medications Medication Instructions Recorded Confirmed methadone 10 mg tablet 82 mg PO DAILY 01/13/21 01/13/21 Previous Rx's Medication Instructions Recorded aripiprazole 10 mg tablet 10 mg PO DAILY #30 tab 01/22/21 clonazepam 1 mg tablet 1 mg PO BID #14 tab 01/22/21 clonidine HCl 0.1 mg tablet 1 tab PO BID #60 tab 01/22/21 cyclobenzaprine 10 mg tablet 10 mg PO BEDTIME PRN #7 tab 01/22/21 divalproex 250 mg tablet,delayed 250 mg PO 1200 #30 tab 01/22/21 release duloxetine 30 mg capsule,delayed 1 cap PO DAILY #30 cap 01/22/21 release gabapentin 300 mg capsule 1 cap PO TID #90 cap 01/22/21 naloxone 4 mg/actuation nasal 4 mg INTRANASAL Q2M PRN #2 ea 01/22/21 spray (Narcan) omeprazole 20 mg capsule,delayed 20 mg PO BID@0600,1630 #60 cap 01/22/21 release prazosin 1 mg capsule 1 mg PO BEDTIME #30 cap 01/22/21 promethazine 25 mg tablet 25 mg PO DAILY PRN #15 tab 01/22/21 quetiapine 50 mg tablet 150 mg PO BEDTIME #30 tab 01/22/21 Mental Status Exam Mental Status Exam Patient Appearance: Appropriate Patient Orientation: Person, Place, Time and Situation Level of Consciousness: Alert Patient Behavior: Appropriate, Talkative and Cooperative Mood Description: Anxious Affect Description: Anxious Patient Cognition Impaired: No Ability to Follow Directions: Good Speech Pattern: Spontaneous Speech Memory Description: Intact Hallucinations: None Delusions: Not Present Thought Process: Goal Oriented Thought Content: positive for Goal Oriented Depressive Symptoms: Increased Anxiety Judgement: Fair Data Data Completed and Pending Completed studies during hospitalization [Text1]: 01/16/21 01/16/21 07:55 07:55 Estimat Average Glucose 97 Hemoglobin A1c % 5.0 Vitamin B12 716 Folate 16.4 DS: Summary Hospital Course Hospital Course: Jeremy is a 20 yo male with a history of panic disorder, schizoaffective disorder,depressed, opiate use [id number], currently on Methadone, cannabis use disorder and benzodiazepine use disorder. Pt presented with increased symptoms of psychosis and anxiety, vomiting, with SI. Reported episodic paranoia, mood dysregulation. Recently asked to leave the [place] as behaviors were dysregulated as well in a hotel he was staying in. Pt ad mitted on conditional voluntary status. Methadone was continued at 82 mg daily. Klonopin was re-started at 1 mg bid and will be dispensed on discharge by pt's mother. Abilify and Depakote were titrated for assistance with mood modulation, seroquel was titrated in addition to assist with sleep but not provide excess sedative effect. Prazosin was trialed for nightmare managment and pt found this to be effective. Cymbalta, Clonidine and Gabapentin were continued. Pt was able to achieve symptom managment. He will continue group work in [place] [facility]. He will live with his mother who will dispense his medications and will follow up with [facility] for out patient care. Time spent discussing smoking cessation with patient: 3 to 10 minutes Status at Discharge Cognitive/behavioral status at discharge: Alert, mood euthymic, non-suicidal, non-psychotic Functional status at discharge: independent ambulation Overall status at discharge: patient is back to baseline Time Spent with Patient Time attestation: Total time spent providing and/or coordinating discharge services: 35 Time spent: Greater than 30 minutes Discharge Plan Discharge Anticipated Discharge Date/Time: 01/22/21 12:00 Patient Disposition: Home, Self-Care Discharge Diagnosis: Schizoaffective Disorder, Depressed Panic Disorder Opiate Use Disorder-currently on Methadone Cannabis Use Disorder, Severe Referrals: Therapist: Lindy Qureshi ([facility] [place]) [Other] - 01/29/21 2:00 pm (Telehealth) Psych Prescriber: Manan Miranda ([facility]) [Other] - 02/06/21 9:30 am (Telehealth) Psych Prescriber: Manan Miranda ([facility]) [Other] - 03/05/21 8:40 am (Telehealth) Partial Hospitalization Program (PHP):[facility] [Other] - 01/24/21 12:00 pm (*Virtual-You will receive an email to confirm your intake appointment and a second email with link to join intake If using tablet or smart phone must have [employer] kapil downloaded; if laptop no need to download kapil) Mykel Marquis MD [Physician] - 02/01/21 2:30 pm (in office) Discharge Medications: New cyclobenzaprine 10 mg Tablet 10 mg PO BEDTIME PRN (Reason: Pain, Mild (Pain Scale 1-3)) Qty: 7 RF: 4 divalproex 250 mg Tablet,Delayed Release (Dr/Ec) 250 mg PO 1200 Qty: 30 RF: 0 prazosin 1 mg Capsule 1 mg PO BEDTIME Qty: 30 RF: 0 clonazepam 1 mg Tablet 1 mg PO BID Qty: 14 RF: 4 aripiprazole 10 mg Tablet 10 mg PO DAILY Qty: 30 RF: 0 quetiapine 50 mg Tablet 150 mg PO BEDTIME Qty: 30 RF: 0 omeprazole 20 mg Capsule,Delayed Release(Dr/Ec) 20 mg PO BID@0600,1630 Qty: 60 RF: 0 Narcan 4 mg/actuation spray,non-aerosol 4 mg intranasal Q2M PRN (Reason: opioid overdose) Qty: 2 RF: 0 promethazine 25 mg tablet 25 mg PO DAILY PRN (Reason: nausea and vomiting) Qty: 15 RF: 0 Continued clonidine HCl 0.1 mg tablet 1 tab PO BID Qty: 60 RF: 0 gabapentin 300 mg capsule 1 cap PO TID Qty: 90 RF: 0 duloxetine 30 mg capsule,delayed release(DR/EC) 1 cap PO DAILY Qty: 30 RF: 0 Held methadone 10 mg Tablet 82 mg PO DAILY RF: 0 Hold Instructions: Resume on 01/23/21. [facility] to [facility] for dosing Discontinued quetiapine 50 mg tablet 2 tab PO BID RF: 0 Discharge Orders: Discharge Order (Routine); Ordered 01/22/21 Ordered By: Elizabeth Barrios Diet: advance to usual diet Activity on Discharge: As tolerated Stand Alone Forms: Patient Portal Discharge page, Community Support Care Plan Goals: Mood stabilization Sobriety Health Concerns: Schizoaffective Disorder-Depressed Panic Disorder Opiate Use Disorder Cannabis Use Disorder Plan of Treatment: Attend appointments as scheduled Take medications as directed Sobriety! Assessment: alert, euthymic, non-psychotic,non-suicidal Discharge Date/Time: 01/22/21 15:02
--- NOTE | 2021-01-22 15:09 | PC.NURSE ---
Pt left the floor with all belongings at 1502. Pt escorted downstairs to main entrance where he was met by his Mother. Pt reported he is ready and feels safe with discharge.
== END 2021-01-22 15:02 | disposition home or self-care (01) | DRG 885 ==
LOC: HO.ED 01-14 01:10 → HO.PM5 01-14 01:19
PROVIDERS: Physician Assistant; Admitting Provider Psychiatry & Neurology Psychiatry; Emergency Provider Emergency Medicine; PCP Internal Medicine; Visit Provider Clinical Nurse Specialist Psychiatric/Mental Health, Adult
DX: F20.9 Schizophrenia, unspecified (principal); R45.851 Suicidal ideations; F11.20 Opioid dependence, uncomplicated; F13.20 Sedative, hypnotic or anxiolytic dependence, uncomplicated; F41.0 Panic disorder [episodic paroxysmal anxiety]; F17.210 Nicotine dependence, cigarettes, uncomplicated; F12.20 Cannabis dependence, uncomplicated; Z20.822 Contact with and (suspected) exposure to COVID-19; Z71.6 Tobacco abuse counseling; Z79.899 Other long term (current) drug therapy
CPT/HCPCS: 36415; 80048; 80053; 80061; 80076; 80307; 81001; 82077; 82607; 82746; 83036; 83690; 83735; 84443; 85025; 87635; 93005; 99285; J1200; J2060; J2765

== ENCOUNTER 2023-04-30 18:37 | Inpatient (IN) | payer OTHER, SELFPAY ==
--- NOTE | 2023-04-30 18:51 | ED.PSYCH ---
HPI - Psych General Chief Complaint: Psychiatric Symptoms Stated Complaint: CRISIS,SI, DENIES SI CURRENTLY, COMING FOR EVAL Time Seen by Provider: 04/30/23 18:47 Source: patient Mode of arrival: EMS Limitations: no limitations History of Present Illness HPI Narrative: 23 yo male with PMH of substance abuse and anxiety here with convoluted story of being in triage after his father made up stories that Jeremy had SI which he denies. He then ran away and the police were called. The patient was drinking a blue slushy and downed 2 of his klonopin for anxiety as he knew he would be coming back. He states his problems are due to his dad having issues with ETOH and not himself having problems. He is very talkative and talking in circles MD complaint: anxiety Onset (ago): day(s) Duration: intermittent History of same: Yes Relieving factors: none Exacerbating factors: other Context: significant life stressor Associated psychiatric symptoms: none Associated symptoms: denies other symptoms Treatments prior to arrival: none Related Data Home Medications Medication Instructions Recorded Confirmed methadone 10 mg tablet 82 mg PO DAILY 01/13/21 01/13/21 Previous Rx's Medication Instructions Recorded aripiprazole 10 mg tablet 10 mg PO DAILY #30 tabs 01/22/21 clonazepam 1 mg tablet 1 mg PO BID #14 tabs 01/22/21 clonidine HCl 0.1 mg tablet 1 tab PO BID #60 tabs 01/22/21 cyclobenzaprine 10 mg tablet 10 mg PO BEDTIME PRN Pain, Mild 01/22/21 (Pain Scale 1-3) #7 tabs divalproex 250 mg tablet,delayed 250 mg PO 1200 #30 tabs 01/22/21 release duloxetine 30 mg capsule,delayed 1 cap PO DAILY #30 caps 01/22/21 release gabapentin 300 mg capsule 1 cap PO TID #90 caps 01/22/21 naloxone 4 mg/actuation nasal 4 mg intranasal Q2M PRN opioid 01/22/21 spray (Narcan) overdose #2 ea omeprazole 20 mg capsule,delayed 20 mg PO BID@0600,1630 #60 caps 01/22/21 release prazosin 1 mg capsule 1 mg PO BEDTIME #30 caps 01/22/21 promethazine 25 mg tablet 25 mg PO DAILY PRN nausea and 01/22/21 vomiting #15 tabs quetiapine 50 mg tablet 150 mg (3 x 50 mg) PO BEDTIME #30 01/22/21 tabs aripiprazole 10 mg tablet (Abilify) 10 mg PO DAILY #2 tabs 02/18/21 clonazepam 1 mg tablet (Klonopin) 1 mg PO BID #4 tabs 02/18/21 clonidine HCl 0.1 mg tablet 0.1 mg PO BID #4 tabs 02/18/21 cyclobenzaprine 10 mg tablet 10 mg PO BEDTIME PRN muscle spasm 02/18/21 #2 tabs divalproex 250 mg tablet,delayed 250 mg PO 1200 #2 tabs 02/18/21 release (Depakote) duloxetine 30 mg capsule,delayed 30 mg PO DAILY #2 caps 02/18/21 release (Cymbalta) gabapentin 300 mg capsule 300 mg PO TID #6 caps 02/18/21 naloxone 4 mg/actuation nasal 4 mg intranasal Q2M PRN opioid 02/18/21 spray (Narcan) overdose #2 ea omeprazole 20 mg capsule,delayed 20 mg PO BID #4 caps 02/18/21 release prazosin 1 mg capsule 1 mg PO BEDTIME #2 caps 02/18/21 promethazine 25 mg tablet 25 mg PO DAILY PRN nausea and 02/18/21 vomiting #2 tabs quetiapine 50 mg tablet (Seroquel) 150 mg (3 x 50 mg) PO BEDTIME #6 02/18/21 tabs Allergies Allergy/AdvReac Type Severity Reaction Status Date / Time No Known Allergies Allergy Verified 01/12/21 14:30 [No Known Allergies*] Review of Systems Review of Systems: Constitutional : No Fever, No Chills ENT/Mouth : No Ear Pain, No Nasal Congestion, No sore throat Eyes: No Eye Pain, No Swelling, No Redness Cardiovascular : No Chest Pain, No SOB Respiratory : No Cough, No Sputum, No Dyspnea Gastrointestinal : No Nausea, No Vomiting, No Diarrhea, No Hematochezia, No Melena Genitourinary : No Dysuria, No Urinary Frequency, No Hematuria Musculoskeletal : No Myalgias Skin : No Skin Lesions, No rash Neuro : No Weakness, No Numbness, No Paresthesias, No Dizziness, No Headache Psych : positive Anxiety, no depression, no SI/HI Heme/Lymph: No Lymphadenopathy Endocrine : No Polyuria, No Polydipsia All other systems reviewed and are negative [facility] Past Medical History Attestation statement: The following information was validated with the patient. Source: old records reviewed Medical History PTSD (post-traumatic stress disorder) Opioid use disorder, severe, on maintenance therapy Cannabis use disorder, severe, dependence Severe benzodiazepine use disorder Anxiety Depression Opioid use disorder Social History Social History Household Members: Family Household Members Other:: 2 Housing: House Do you presently have visiting nurse or other home services: No Alcohol intake: never Patient Tobacco Use Status: Current everyday Tobacco user Tobacco use type: Cigarette Cigarette Packs Per Day: 1 Cigarettes Per Day: 20.0 Years Smoked: 5 Smoked in Last 30 Days: Yes e-Cigarette/Vaping Use: Currently Using Second Hand Smoke Exposure: No Use of substances other than those prescribed or required for medical reasons: Yes Substance Use Type: Marijuana Advance Directives: No Advance Directives Information Provided: No service: No Sexual orientation: Did not discuss Physical Exam Vital Signs: Vital Signs: Last Vital Signs Temp 98.8 F 04/30/23 18:59 Pulse 94 04/30/23 18:59 Resp 20 04/30/23 18:59 BP 129/67 04/30/23 18:59 Pulse Ox 95 04/30/23 18:59 O2 Del Method Room Air 04/30/23 18:59 BMI result Body Mass Index 31.0 Appearance: Alert. Oriented X3. No acute distress. Very talkative and pressured speech Eyes: Pupils equal, round and reactive to light. ENT: Pharynx normal. Neck: Normal inspection. Neck supple. CVS: Normal heart rate and rhythm. Pulses normal. Respiratory: No respiratory distress. Breath sounds normal. Abdomen: Soft and nontender. Skin: Skin warm and dry. Normal skin color. Normal skin turgor. Extremities: No lower extremity edema. No calf ttp Neuro: Oriented X 3. No motor deficit. No sensory deficit. CN2-12 intact Course Course Course Narrative: Physician observation started at 848pm. Patient placed in physician observation because the patient needed more time for CARE team to assess the need for psych admission. At the time observation was started the patient's vitals were stable, patient is alert and oriented but slightly anxious, Neuro: nonfocal, CV RRR, Lungs clear Medical Decision Making Medical Decision Making MDM Narrative: 23 yo male with PMH of substance abuse and anxiety here with reported SI statements to father though he denies this - at this time will obtain basic labs and drug screen - he did take 2 of his klonopin before arrival for anxiety but denies SI/HI. CARE team consult ordered Differential Diagnosis Differential Diagnoses: The differential diagnosis associated with the presentation includes anxiety, substance abuse Admission/Observation Consideration of admission/observation: Escalation of care including admission/observation considered Consult Healthcare Provider Management of the patient was discussed with: Behavioral Health Provider Lab Data [facility] Lab Attestation statement: I reviewed the patient's lab results. 04/30/23 19:49 04/30/23 19:49 Labs: Lab Results 04/30/23 Range/Units 19:49 WBC 10.5 (4.8-10.8) X10*3/uL RBC 4.07 L (4.60-5.80) X10*6/uL Hgb 12.0 L (14.0-18.0) g/dl Hct 35.7 L (42.0-52.0) % MCV 87.7 (80.0-98.0) fL MCH 29.5 (27.0-33.0) pg MCHC 33.6 (31.0-36.0) g/dl RDW 12.9 (11.0-16.0) % Plt Count 147 L (160-400) X10*3/uL MPV 11.3 (9.4-12.4) fL Immature Gran % (Auto) 0.4 (0.0-0.4) % Neut % (Auto) 71.0 (45-73) % Lymph % (Auto) 19.4 L (20-40) % [place] % (Auto) 5.8 (2-11) % Eos % (Auto) 2.6 (0-4) % Baso % (Auto) 0.8 (0-2) % Lymph # (Auto) 2.0 (1.2-4.9) X10*3/uL [place] # (Auto) 0.6 (0.1-1.2) X10*3/uL Eos # (Auto) 0.3 (0.0-0.4) X10*3/uL Baso # (Auto) 0.1 (0.0-0.2) X10*3/uL Abs Immat Gran (auto) 0.04 H (0.00-0.03) X10*3/uL Absolute Neuts (auto) 7.4 (2.0-8.3) x10*3/uL Absolute Nucleated RBC 0.000 (0.0-0.012) X10*3/uL Nucleated RBC % (auto) 0.0 (0.0-0.2) /100WBC Sodium 138 (135-145) mmol/L Potassium 4.0 (3.3-5.1) mmol/L Chloride 105 (96-108) mmol/L Carbon Dioxide 24 (22-29) mmol/L Anion Gap 13 (12-20) BUN 15 (9-16) mg/dL Creatinine 0.95 (0.5-1.4) mg/dL Estim Creat Clear Calc 152.2 Estimated GFR > 60 Random Glucose 119 H (60-115) mg/dL Calcium 9.1 D (8.4-10.2) mg/dL Magnesium 2.0 (1.6-2.6) mg/dL Total Bilirubin 0.4 (0.0-1.0) mg/dL Direct Bilirubin 0.1 (0.0-0.5) mg/dL AST 43 H (5-37) U/L ALT 22 (0-40) U/L Alkaline Phosphatase 76 (39-117) U/L Total Protein 6.7 (6.5-8.0) g/dL Albumin 4.2 (3.5-5.0) g/dL Salicylates < 5.0 L (15-30) mg/dL Urine Opiates Screen Not Detected (Not Detect) Urine Fentanyl Screen Not Detected (Not Detect) Acetaminophen < 3 (<30) mcg/mL Ur Barbiturates Screen Not Detected (Not Detect) Ur Phencyclidine Scrn Not Detected (Not Detect) Ur Amphetamines Screen Not Detected (Not Detect) U Benzodiazepines Scrn POSITIVE H (Not Detect) Urine Cocaine Screen Not Detected (Not Detect) U Marijuana (THC) Screen POSITIVE H (Not Detect) Ethyl Alcohol < 10 mg/dL Independent Historian Clinical information obtained from an independent historian. History obtained from or confirmed by: EMS External Record Review External record reviewed: Inpatient record Discharge Plan Discharge Clinical Impression: Acute anxiety Patient Disposition: Still a Patient Prescriptions: No Action methadone 10 mg Tablet 82 mg PO DAILY Hold Instructions: Resume on 01/23/21. Return to [facility] for dosing cyclobenzaprine 10 mg Tablet 10 mg PO BEDTIME PRN (Reason: Pain, Mild (Pain Scale 1-3)) Qty: 7 4RF divalproex 250 mg Tablet,Delayed Release (Dr/Ec) 250 mg PO 1200 Qty: 30 0RF prazosin 1 mg Capsule 1 mg PO BEDTIME Qty: 30 0RF Protocol: Hold for SBP< HOLD for SBP < : 90 clonazepam 1 mg Tablet 1 mg PO BID Qty: 14 4RF aripiprazole 10 mg Tablet 10 mg PO DAILY Qty: 30 0RF quetiapine 50 mg Tablet 150 mg PO BEDTIME Qty: 30 0RF omeprazole 20 mg Capsule,Delayed Release(Dr/Ec) 20 mg PO BID@0600,1630 Qty: 60 0RF clonidine HCl 0.1 mg tablet 1 tab PO BID Qty: 60 0RF gabapentin 300 mg capsule 1 cap PO TID Qty: 90 0RF duloxetine 30 mg capsule,delayed release(DR/EC) 1 cap PO DAILY Qty: 30 0RF Narcan 4 mg/actuation spray,non-aerosol 4 mg intranasal Q2M PRN (Reason: opioid overdose) Qty: 2 0RF Rx Instructions: spray 1 dose into ONE nostril; alternate nostrils w each dose until help arrives promethazine 25 mg tablet 25 mg PO DAILY PRN (Reason: nausea and vomiting) Qty: 15 0RF promethazine 25 mg tablet 25 mg PO DAILY PRN (Reason: nausea and vomiting) Qty: 2 0RF cyclobenzaprine 10 mg tablet 10 mg PO BEDTIME PRN (Reason: muscle spasm) Qty: 2 0RF clonidine HCl 0.1 mg tablet 0.1 mg PO BID Qty: 4 0RF prazosin 1 mg capsule 1 mg PO BEDTIME Qty: 2 0RF aripiprazole [Abilify] 10 mg tablet 10 mg PO DAILY Qty: 2 0RF clonazepam [Klonopin] 1 mg tablet 1 mg PO BID Qty: 4 0RF divalproex [Depakote] 250 mg tablet,delayed release (DR/EC) 250 mg PO 1200 Qty: 2 0RF omeprazole 20 mg capsule,delayed release(DR/EC) 20 mg PO BID Qty: 4 0RF duloxetine [Cymbalta] 30 mg capsule,delayed release(DR/EC) 30 mg PO DAILY Qty: 2 0RF gabapentin 300 mg capsule 300 mg PO TID Qty: 6 0RF quetiapine [Seroquel] 50 mg tablet 150 mg PO BEDTIME Qty: 6 0RF Narcan 4 mg/actuation spray,non-aerosol 4 mg intranasal Q2M PRN (Reason: opioid overdose) Qty: 2 0RF Rx Instructions: spray 1 dose into ONE nostril; alternate nostrils w each dose until help arrives Interventions: [place]-Suicide Risk Severity Scale Last Done: 04/30/23 19:03
[2023-04-30 18:59] VITALS: BP 116/68; BP 129/67; PULSE 94; PULSE 95; RESP 20; TEMP 37.1; O2SAT 95; O2SAT 98; BMI 31.0
--- NOTE | 2023-04-30 19:06 | PC.NURSE ---
belongings in locker 1
--- NOTE | 2023-04-30 19:18 | PC.NURSE ---
pt BIBA by suzan, and HPD adter pt ?eloped from the waiting room where he arrived with his father after his dad had concerns for the pt regarding him making Suicidal statement. per HPD pt took meds from a container like he was taking a shot . pt reports this med was clonopin and he only took 2 of them. pt has pressured speech at this time, speech is slightly slurred at this time. pt denies SI/SHb to this marine underwriter. pt reports my brain is fried if you can't tell will obtain labs and urine
--- NOTE | 2023-04-30 19:32 | PC.NURSE ---
patient in the middle of being triaged when t/w arrived. patient has mildly slurred speech and constant chat about drugs, what he'd like, as father left making demands about what happend if his controlled meds are dc'ed
[2023-04-30 20:01] LABS: MANUAL DIFF FLAG NO
[2023-04-30 20:02] LABS: Basophils Absolute Auto 0.1 X10*3/uL (0.0-0.2); Basophils Percent Auto 0.8 % (0-2); Eosinophils Absolute Auto 0.3 X10*3/uL (0.0-0.4); Eosinophils Percent Auto 2.6 % (0-4); Hematocrit 35.7 % (42.0-52.0); Imm Gran Abs Auto 0.04 X10*3/uL (0.00-0.03); Imm Gran Pct Auto 0.4 % (0.0-0.4); Lymphocytes Percent Auto 19.4 % (20-40); Mean Corpuscular HGB Conc 33.6 g/dl (31.0-36.0); Mean Corpuscular Hemoglobin 29.5 pg (27.0-33.0); Mean Corpuscular Volume 87.7 fL (80.0-98.0); Mean Platelet Volume 11.3 fL (9.4-12.4); Monocytes Absolute Auto 0.6 X10*3/uL (0.1-1.2); Monocytes Percent Auto 5.8 % (2-11); Neutrophils Absolute Auto 7.4 x10*3/uL (2.0-8.3); Platelet Count 147 X10*3/uL (160-400); Red Blood Count 4.07 X10*6/uL (4.60-5.80); Red Cell Distribution Width 12.9 % (11.0-16.0); White Blood Count 10.5 X10*3/uL (4.8-10.8)
[2023-04-30 20:10] LABS: Amphetamine Screen Urine Not Detected (Not Detect); Barbiturates, Urine Not Detected (Not Detect); Benzodiazepines Screen Urine POSITIVE (Not Detect); Cannabinoid Screen Urine POSITIVE (Not Detect); Cocaine Screen Urine Not Detected (Not Detect); Fentanyl, urine Not Detected (Not Detect); Opiate Screen Urine Not Detected (Not Detect); Phencyclidine Screen Urine Not Detected (Not Detect)
[2023-04-30 20:19] LABS: Alanine Aminotransferase 22 U/L (0-40); Albumin Level 4.2 g/dL (3.5-5.0); Alkaline Phosphatase 76 U/L (39-117); Anion Gap 13 (12-20); Aspartate Amino Transferase 43 U/L (5-37); Bilirubin Direct 0.1 mg/dL (0.0-0.5); Bilirubin Total 0.4 mg/dL (0.0-1.0); Blood Urea Nitrogen 15 mg/dL (9-16); Calcium 9.1 mg/dL (8.4-10.2); Carbon Dioxide 24 mmol/L (22-29); Chloride 105 mmol/L (96-108); Creatinine Clr Calc Pharmacy 152.2; Estimated Glomerular Filt Rate > 60; Ethanol < 10 mg/dL; Glucose Random 119 mg/dL (60-115); Sodium 138 mmol/L (135-145); Total Protein 6.7 g/dL (6.5-8.0)
[2023-04-30 20:20] LABS: Acetaminophen LAB < 3 mcg/mL (<30); Salicylate < 5.0 mg/dL (15-30)
[2023-04-30] MEDS: Nicotine 21 MG PATCH.TD24 TRANSDERMA (23:17)
--- NOTE | 2023-05-01 08:03 | ECG_ITS ---
Test Reason : CHECK PROLONG QT Blood Pressure : / mmHG Vent. Rate : 047 BPM Atrial Rate : 047 BPM P-R Int : 136 ms QRS Dur : 080 ms QT Int : 470 ms P-R-T Axes : 009 084 054 degrees QTc Int : 415 ms Sinus bradycardia Otherwise normal ECG When compared with ECG of 15-JAN-2021 11:12, Vent. rate has decreased BY 36 BPM Referred By: Timothy Nieves Electronically Signed By:BHAKTI OSMAN MD
[2023-05-01 08:23] LABS: Appearance Urine Clear; Color Urine Yellow; Glucose Urine UA Negative (Negative); Leukocyte Esterase Urine Small (1+) (Negative); Nitrite Urine Negative (Negative); PH 5.5 (5.0-9.0); Specific Gravity - Urine 1.015 (1.005-1.025); UMIC TRIGGER UACC YES; Urine Blood Negative (Negative); Urine Ketones Negative (Negative); Urine Protein Negative (Neg-Trace)
[2023-05-01 08:46] LABS: Bacteria Urine Trace (None Seen); RBC Urine 0-2 /HPF (0-2); Squamous Epithelial Cell Urine 0-2 /HPF (0-2); UACC Culture Trigger YES; WBC Urine 0-5 /HPF (0-5)
[2023-05-01 08:47] LABS: Hyaline Casts Urine 0-2 /LPF (0-2)
--- NOTE | 2023-05-01 09:15 | HE.PHANOTE ---
METHADONE CONFIRMATION FORM PATIENT TAKES 140MG FROM [facility]. LAST DOSE WAS 04/30/2023
[2023-05-01] MEDS: methADONE HCl 20 MG/2 ML ORAL.CONC 140 MG PO (10:48)
[2023-05-01] MEDS: Venlafaxine HCl ER 150 MG CAP.ER.24H PO (10:49)
[2023-05-01 11:17] VITALS: BP 110/72; PULSE 59; RESP 16; TEMP 36.8; O2SAT 97
[2023-05-01 11:17] LABS: IDNOW Serial# BCCEAD1C
[2023-05-01 11:18] LABS: COVID-19 Test Negative (Negative)
[2023-05-01] MEDS: clonazePAM 0.5 MG TABLET PO ×2 (12:03→19:59)
[2023-05-01 15:05] VITALS: RESP 16
[2023-05-01 17:50] VITALS: BP 122/87; PULSE 55; RESP 16; TEMP 36.1; O2SAT 99
[2023-05-01 17:51] VITALS: BMI 33.2
[2023-05-01] MEDS: Nicotine Polacrilex 2 MG GUM 4 MG BUCCAL ×2 (18:55→21:41)
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
[2023-05-01 19:50] VITALS: BP 115/70; PULSE 64; RESP 16; TEMP 36.7; O2SAT 98
[2023-05-01] MEDS: Mirtazapine 15 MG TABLET PO (19:59)
[2023-05-02 08:25] LABS: Estimated Average Glucose 100 mg/dL; Hemoglobin A1c % 5.1 % (<6.0)
[2023-05-02] MEDS: methADONE HCl 20 MG/2 ML ORAL.CONC 140 MG PO (08:43)
[2023-05-02] MEDS: Multivitamin TABLET 1 TAB PO (08:43)
[2023-05-02] MEDS: Venlafaxine HCl ER 150 MG CAP.ER.24H PO (08:43)
[2023-05-02 08:55] LABS: Cholesterol 201 mg/dL (<200); HDL Cholesterol 36 mg/dL (>40); Iron 87 mcg/dL (45-160); LDL Cholesterol Calculated 113 mg/dL (<100); Magnesium 2.2 mg/dL (1.6-2.6); Percent Iron Saturation 37 % (15-50); Total Iron Binding Capacity 237 mcg/dL (228-428); Triglycerides 261 mg/dL (<150); Unsaturated Iron Binding 150 ug/dL
[2023-05-02] MEDS: clonazePAM 0.5 MG TABLET PO ×2 (08:57→13:15)
[2023-05-02] MEDS: Nicotine Polacrilex 2 MG GUM 4 MG BUCCAL ×4 (08:57→20:10)
[2023-05-02 09:02] VITALS: BP 123/76; PULSE 71; RESP 18; TEMP 36.8; O2SAT 100
[2023-05-02 09:12] LABS: Thyroid Stimulating Hormone 0.97 uIU/mL (0.32-4.0)
[2023-05-02 09:16] LABS: Folate 11.8 ng/mL (> or = 4.0); Vitamin B12 565 pg/mL (200-900)
--- NOTE | 2023-05-02 09:51 | PC.NURSE ---
Received telephone call from patients mother. No MARY signed at this time, declined verbal consent. Mother reports patient has called her multiple times, and has broken his restraining order . Informed caller this typewriter ribbon winder was unable to conform or deny admission status, mother states she was going to call the police and suggested his phone use be restricted.
[2023-05-02] MEDS: Omeprazole 20 MG CAPSULE.DR PO (11:01)
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
[2023-05-02 18:00] VITALS: BP 111/55; PULSE 55; RESP 16; TEMP 36.2; O2SAT 97
[2023-05-02] MEDS: Mirtazapine 15 MG TABLET PO (20:10)
[2023-05-02] MEDS: clonazePAM 1 MG TABLET PO (20:10)
[2023-05-03] MEDS: Omeprazole 20 MG CAPSULE.DR PO (08:23)
[2023-05-03] MEDS: methADONE HCl 20 MG/2 ML ORAL.CONC 140 MG PO (08:23)
[2023-05-03] MEDS: Multivitamin TABLET 1 TAB PO (08:24)
[2023-05-03] MEDS: clonazePAM 1 MG TABLET PO ×2 (08:24→22:22)
[2023-05-03] MEDS: Venlafaxine HCl ER 37.5 MG CAP.ER.24H 112.5 MG PO (08:24)
[2023-05-03 10:13] VITALS: BP 119/65; PULSE 80; RESP 20; TEMP 36.4; O2SAT 98
--- NOTE | 2023-05-03 10:14 | PC.NURSE ---
Pt signed a 3 day on 05/03/23, up on Thu05/06/23
--- NOTE | 2023-05-03 10:16 | HO.PSYCHPN ---
Subjective Subjective Date of Service: 05/03/23 Reason For Visit: opiate, cannabis, benzodiazepine, use disorder, SI Subjective Notes: [facility] Warning and 3 Day Healthcare Proxy: No Guardianship: No Medical Problems Affecting Mental Status: No Interim History: met with patient. Discussed with Nursing. Patient submitted 3 day notice which will 05/06/2023. Today reports doing this because he is frustrated with his family not talking to him, especially his father and feels that by submitting the three-day notice his family will understand and perhaps engage more. No problems with Effexor being lowered. Still feels anxiety is high. Sleep okay. No SI. No HI. No agitation psychosis. Is participating in groups. Medication Compliance: Yes Side effects from medications: No Attending Groups: Yes Review of Systems Acute medical concerns: No Review of Systems Review of Systems Pleasant. Engaged. Fairly presented. Organized. Is anxious. No SI. No HI. No agitation psychosis. Insight and judgment fair Diagnostics Vital Signs (24Hr): Vital Signs - 24 hr 05/02/23 18:00 05/03/23 10:13 Temperature 97.2 F 97.5 F Pulse Rate 55 80 Respiratory Rate 16 20 Blood Pressure 111/55 L 119/65 Pulse Oximetry 97 98 Oxygen Delivery Method Room Air Room Air BMI result Body Mass Index 33.2 Labs 04/30/23 19:49 04/30/23 19:49 Labs: Laboratory Results - last 48 hr 05/01/23 05/02/23 10:54 07:52 Estimat Average Glucose 100 Hemoglobin A1c % 5.1 Magnesium 2.2 Iron 87 TIBC 237 % Saturation 37 Unsat Iron Binding 150 Triglycerides 261 H Cholesterol 201 H LDL Cholesterol, Calc 113 H HDL Cholesterol 36 L Vitamin B12 565 Folate 11.8 TSH 0.97 Free T4 0.80 COVID-19 ([facility]) Negative COVID-19 Clin Com See Note Medications Medications Current Medications Acetaminophen (Acetaminophen 325 Mg Tablet) 650 mg PO Q6H PRN PRN Reason: Headache/Pain Mild Scale (1-3) Al Hydroxide/Mg Hydroxide (Magnesium Hydrox/Alum Hydrox 30 Ml Oral.Susp) 30 ml PO Q6H PRN PRN Reason: Heartburn/Nausea Buspirone HCl (Buspirone Hcl 5 Mg Tablet) 15 mg PO BID PRN PRN Reason: anxiety Chlorpromazine HCl (Chlorpromazine Hcl 25 Mg Tablet) 25 mg PO Q6H PRN PRN Reason: nausea. severe anxiety Clonazepam (Clonazepam 1 Mg Tablet) 1 mg PO BID [facility] Last Admin: 05/03/23 08:24 Dose: 1 mg Hydroxyzine HCl (Hydroxyzine Hcl 25 Mg Tablet) 25 mg PO Q6H PRN PRN Reason: Anxiety Magnesium Hydroxide (Milk Of Magnesia 30 Ml Oral.Susp) 30 ml PO DAILY PRN PRN Reason: Constipation Methadone HCl (Methadone Hcl 20 Mg/2 Ml Oral.Conc) 140 mg PO DAILY [facility] Last Admin: 05/03/23 08:23 Dose: 140 mg Mirtazapine (Mirtazapine 15 Mg Tablet) 15 mg PO BEDTIME [facility] Last Admin: 05/02/23 20:10 Dose: 15 mg Multivitamins/Vitamin C (Multivitamin Tablet) 1 tab PO DAILY [facility] Last Admin: 05/03/23 08:24 Dose: 1 tab Nicotine Polacrilex (Nicotine Polacrilex 2 Mg Gum) 4 mg BUCCAL Q2H PRN PRN Reason: Nicotine Cravings Last Admin: 05/02/23 20:10 Dose: 4 mg Olanzapine (Olanzapine 5 Mg Tablet) 5 mg PO Q4H PRN PRN Reason: agitation, james Omeprazole (Omeprazole 20 Mg Capsule.Dr) 20 mg PO DAILY [facility] Last Admin: 05/03/23 08:23 Dose: 20 mg Trazodone HCl (Trazodone Hcl 50 Mg Tablet) 50 mg PO BEDTIME MRX1 PRN PRN Reason: Insomnia Venlafaxine HCl (Venlafaxine Hcl Er 37.5 Mg Cap.Er.24h) 112.5 mg PO DAILY [facility] Last Admin: 05/03/23 08:24 Dose: 112.5 mg Allergies Allergies Allergy/AdvReac Type Severity Reaction Status Date / Time No Known Allergies Allergy Verified 01/12/21 14:30 [No Known Allergies*] Assessment & Plan Assessment & Plan (1) Acute anxiety: Status: Acute Code(s): F41.9 - Anxiety disorder, unspecified Assessment and Plan: presents with agoraphobia and panic disorder. Comorbid history of psychosis. Also substance use disorder. Has been staying with father since December 2022. patient feels that Effexor may have made his mood worse. Is advocating for higher Klonopin. Overall patient agreed to lower Effexor down to 112.5 mg to see if this has a positive impact on his mood i.e. he believes it may be giving him problems. Maintain Remeron 15 mg. will change Klonopin to 1 mg twice daily, which he was on prior to discharge from [place] in December 2022. will utilize Thorazine 25 mg as needed for any nausea and severe anxiety for/panic attacks 05/03/2023: No changes. Did submit three-day notice (2) Panic disorder: Status: Acute Code(s): F41.0 - Panic disorder [episodic paroxysmal anxiety] Reason for continued inpatient stay Substantial Risk for: rapid decompensation Time Spent With Patient Time: Total time managing care of this patient today ____ minutes.
[2023-05-03] MEDS: chlorproMAZINE HCl 25 MG TABLET PO ×2 (10:23→23:50)
[2023-05-03] MEDS: Nicotine Polacrilex 2 MG GUM 4 MG BUCCAL ×4 (10:23→23:51)
[2023-05-03 19:47] VITALS: BP 112/58; PULSE 54; RESP 18; TEMP 36.6; O2SAT 97
[2023-05-03] MEDS: Mirtazapine 15 MG TABLET PO (22:22)
[2023-05-04 07:30] VITALS: BP 108/67; PULSE 74; RESP 18; TEMP 36.2; O2SAT 96
[2023-05-04] MEDS: Omeprazole 20 MG CAPSULE.DR PO (08:15)
[2023-05-04] MEDS: Venlafaxine HCl ER 37.5 MG CAP.ER.24H 112.5 MG PO (08:15)
[2023-05-04] MEDS: Multivitamin TABLET 1 TAB PO (08:15)
[2023-05-04] MEDS: methADONE HCl 20 MG/2 ML ORAL.CONC 140 MG PO (08:15)
[2023-05-04] MEDS: clonazePAM 1 MG TABLET PO ×2 (08:15→20:17)
[2023-05-04] MEDS: Nicotine Polacrilex 2 MG GUM 4 MG BUCCAL ×5 (08:35→22:17)
[2023-05-04] MEDS: chlorproMAZINE HCl 25 MG TABLET PO (10:40)
--- NOTE | 2023-05-04 17:48 | P.PNPSI_ITS ---
Subjective Subjective Date of Service: 05/04/23 Reason For Visit: opiate, cannabis, benzodiazepine, use disorder, SI Interim History: calm, cooperative. meds Hx reviewed, pt pushing for klonopin. states SSRIs make him feel emotionally flat, cymbalta and effexor are a bit better. reports neither class has substantially alleviated his anxiety or reduced the frequency of his panic attacks, which he estimates as happening about 20 times weekly. states he has had a weird reaction to elavil and pamelor, sounds related to urinary retention. states he just felt flat on VPA. denies h/o lithium trial. ambivalent about any medication other than klonopin. per staff, 3-day notice up . visible, social, spending time with female peer. Mental Status Exam Mental Status Exam Narrative: adequately dressed and groomed in street clothes. cooperative. no PMA/PMR. speech nml rate, amount, loudness, latency. thoughts linear and logical. affect flexible, normo-intense, non-labile. mood anxious. no SI/HI/AVH expressed. Diagnostics Vital Signs (24Hr): Vital Signs - 24 hr 05/03/23 19:47 05/04/23 07:30 Temperature 97.9 F 97.2 F Pulse Rate 54 74 Respiratory Rate 18 18 Blood Pressure 112/58 L 108/67 Pulse Oximetry 97 96 Oxygen Delivery Method Room Air Room Air BMI result Body Mass Index 33.2 Labs 04/30/23 19:49 04/30/23 19:49 Medications Medications Current Medications Acetaminophen (Acetaminophen 325 Mg Tablet) 650 mg PO Q6H PRN PRN Reason: Headache/Pain Mild Scale (1-3) Al Hydroxide/Mg Hydroxide (Magnesium Hydrox/Alum Hydrox 30 Ml Oral.Susp) 30 ml PO Q6H PRN PRN Reason: Heartburn/Nausea Buspirone HCl (Buspirone Hcl 5 Mg Tablet) 15 mg PO BID PRN PRN Reason: anxiety Chlorpromazine HCl (Chlorpromazine Hcl 25 Mg Tablet) 25 mg PO Q6H PRN PRN Reason: nausea. severe anxiety Last Admin: 05/04/23 10:40 Dose: 25 mg Clonazepam (Clonazepam 1 Mg Tablet) 1 mg PO BID [facility] Last Admin: 05/04/23 08:15 Dose: 1 mg Hydroxyzine HCl (Hydroxyzine Hcl 25 Mg Tablet) 25 mg PO Q6H PRN PRN Reason: Anxiety Magnesium Hydroxide (Milk Of Magnesia 30 Ml Oral.Susp) 30 ml PO DAILY PRN PRN Reason: Constipation Methadone HCl (Methadone Hcl 20 Mg/2 Ml Oral.Conc) 140 mg PO DAILY [facility] Last Admin: 05/04/23 08:15 Dose: 140 mg Mirtazapine (Mirtazapine 15 Mg Tablet) 15 mg PO BEDTIME [facility] Last Admin: 05/03/23 22:22 Dose: 15 mg Multivitamins/Vitamin C (Multivitamin Tablet) 1 tab PO DAILY [facility] Last Admin: 05/04/23 08:15 Dose: 1 tab Nicotine Polacrilex (Nicotine Polacrilex 2 Mg Gum) 4 mg BUCCAL Q2H PRN PRN Reason: Nicotine Cravings Last Admin: 05/04/23 14:45 Dose: 4 mg Olanzapine (Olanzapine 5 Mg Tablet) 5 mg PO Q4H PRN PRN Reason: agitation, james Omeprazole (Omeprazole 20 Mg Capsule.Dr) 20 mg PO DAILY [facility] Last Admin: 05/04/23 08:15 Dose: 20 mg Trazodone HCl (Trazodone Hcl 50 Mg Tablet) 50 mg PO BEDTIME MRX1 PRN PRN Reason: Insomnia Venlafaxine HCl (Venlafaxine Hcl Er 37.5 Mg Cap.Er.24h) 112.5 mg PO DAILY [facility] Last Admin: 05/04/23 08:15 Dose: 112.5 mg Allergies Allergies Allergy/AdvReac Type Severity Reaction Status Date / Time No Known Allergies Allergy Verified 01/12/21 14:30 [No Known Allergies*] Assessment & Plan Assessment & Plan (1) Acute anxiety: Status: Acute Code(s): F41.9 - Anxiety disorder, unspecified Assessment and Plan: (2) Panic disorder: Status: Acute Code(s): F41.0 - Panic disorder [episodic paroxysmal anxiety] Plan presents with agoraphobia and panic disorder. Comorbid history of psychosis. Also substance use disorder. Has been staying with father since December 2022. patient feels that Effexor may have made his mood worse. Is advocating for higher Klonopin. Overall patient agreed to lower Effexor down to 112.5 mg to see if this has a positive impact on his mood i.e. he believes it may be giving him problems. Maintain Remeron 15 mg. will change Klonopin to 1 mg twice daily, which he was on prior to discharge from [place] in December 2022. will utilize Thorazine 25 mg as needed for any nausea and severe anxiety for/panic attacks 05/03/2023: No changes. Did submit three-day notice. 05/04: continue current mgmt. laser-focused on getting klonopin increased. 3- day up weds. Reason for continued inpatient stay Substantial Risk for: inability to function and rapid decompensation Time Spent With Patient Time: Total time managing care of this patient today __45__ minutes.
[2023-05-04 20:00] VITALS: BP 135/86; PULSE 77; RESP 16; TEMP 36.6; O2SAT 97
[2023-05-04] MEDS: Mirtazapine 15 MG TABLET PO (20:17)
[2023-05-05 08:07] VITALS: BP 132/74; PULSE 55; RESP 20; TEMP 36.3; O2SAT 100
[2023-05-05] MEDS: methADONE HCl 20 MG/2 ML ORAL.CONC 140 MG PO (09:11)
[2023-05-05] MEDS: clonazePAM 1 MG TABLET PO ×2 (09:13→21:14)
[2023-05-05] MEDS: Venlafaxine HCl ER 37.5 MG CAP.ER.24H 112.5 MG PO (09:13)
[2023-05-05] MEDS: Multivitamin TABLET 1 TAB PO (09:13)
[2023-05-05] MEDS: Omeprazole 20 MG CAPSULE.DR PO (09:13)
[2023-05-05] MEDS: Nicotine Polacrilex 2 MG GUM 4 MG BUCCAL ×3 (09:24→21:14)
[2023-05-05] MEDS: Lithium Carbonate ER 450 MG TABLET.ER PO ×2 (12:31→21:14)
[2023-05-05] MEDS: chlorproMAZINE HCl 25 MG TABLET PO ×2 (13:26→22:59)
--- NOTE | 2023-05-05 15:13 | P.PNPSI_ITS ---
Subjective Subjective Date of Service: 05/05/23 Reason For Visit: opiate, cannabis, benzodiazepine, use disorder, SI Interim History: calm, cooperative. pleasant. states he is interested in treatment and will rescind 3-day notice. discuss medication options, it appears pt has tried most major classes of medication aside from lithium. open to lithium trial, warned unlikely to be successful but well worth the trouble if it helps. R/B discussed, including renal damage. agrees to trial of 450 mg BID. reports weight gain on seroquel and zyprexa. felt overmedicated on abilify. per staff, 3-day notice up tomorrow. labile, anxious. visible, social. angry re no more klonopin dosing increase. rescinded 3-day notice later in the day. indicating taking lithium to try to buy time inpatient until he can convince his father to allow him to move back in. Mental Status Exam Mental Status Exam Narrative: adequately dressed and groomed in street clothes. cooperative. no PMA/PMR. speech nml rate, amount, loudness, latency. thoughts linear and logical. affect flexible, normo-intense, non-labile. mood in a good space right now. no SI/HI/AVH expressed. Diagnostics Vital Signs (24Hr): Vital Signs - 24 hr 05/04/23 20:00 05/05/23 08:07 Temperature 97.9 F 97.4 F Pulse Rate 77 55 Respiratory Rate 16 20 Blood Pressure 135/86 132/74 Pulse Oximetry 97 100 Oxygen Delivery Method Room Air Room Air BMI result Body Mass Index 33.2 Labs 04/30/23 19:49 04/30/23 19:49 Medications Medications Current Medications Acetaminophen (Acetaminophen 325 Mg Tablet) 650 mg PO Q6H PRN PRN Reason: Headache/Pain Mild Scale (1-3) Al Hydroxide/Mg Hydroxide (Magnesium Hydrox/Alum Hydrox 30 Ml Oral.Susp) 30 ml PO Q6H PRN PRN Reason: Heartburn/Nausea Chlorpromazine HCl (Chlorpromazine Hcl 25 Mg Tablet) 25 mg PO Q6H PRN PRN Reason: nausea. severe anxiety Last Admin: 05/05/23 13:26 Dose: 25 mg Clonazepam (Clonazepam 1 Mg Tablet) 1 mg PO BID [facility] Last Admin: 05/05/23 09:13 Dose: 1 mg Hydroxyzine HCl (Hydroxyzine Hcl 25 Mg Tablet) 25 mg PO Q6H PRN PRN Reason: Anxiety Armona Carbonate (Armona Carbonate Er 450 Mg Tablet.Er) 450 mg PO BID [facility] Last Admin: 05/05/23 12:31 Dose: 450 mg Magnesium Hydroxide (Milk Of Magnesia 30 Ml Oral.Susp) 30 ml PO DAILY PRN PRN Reason: Constipation Methadone HCl (Methadone Hcl 20 Mg/2 Ml Oral.Conc) 140 mg PO DAILY [facility] Last Admin: 05/05/23 09:11 Dose: 140 mg Mirtazapine (Mirtazapine 15 Mg Tablet) 15 mg PO BEDTIME [facility] Last Admin: 05/04/23 20:17 Dose: 15 mg Multivitamins/Vitamin C (Multivitamin Tablet) 1 tab PO DAILY [facility] Last Admin: 05/05/23 09:13 Dose: 1 tab Nicotine Polacrilex (Nicotine Polacrilex 2 Mg Gum) 4 mg BUCCAL Q2H PRN PRN Reason: Nicotine Cravings Last Admin: 05/05/23 13:27 Dose: 4 mg Olanzapine (Olanzapine 5 Mg Tablet) 5 mg PO Q4H PRN PRN Reason: agitation, james Omeprazole (Omeprazole 20 Mg Capsule.Dr) 20 mg PO DAILY [facility] Last Admin: 05/05/23 09:13 Dose: 20 mg Trazodone HCl (Trazodone Hcl 50 Mg Tablet) 50 mg PO BEDTIME MRX1 PRN PRN Reason: Insomnia Venlafaxine HCl (Venlafaxine Hcl Er 37.5 Mg Cap.Er.24h) 112.5 mg PO DAILY [facility] Last Admin: 05/05/23 09:13 Dose: 112.5 mg Allergies Allergies Allergy/AdvReac Type Severity Reaction Status Date / Time No Known Allergies Allergy Verified 01/12/21 14:30 [No Known Allergies*] Assessment & Plan Assessment & Plan (1) Acute anxiety: Status: Acute Code(s): F41.9 - Anxiety disorder, unspecified Assessment and Plan: (2) Panic disorder: Status: Acute Code(s): F41.0 - Panic disorder [episodic paroxysmal anxiety] Plan presents with agoraphobia and panic disorder. Comorbid history of psychosis. Also substance use disorder. Has been staying with father since December 2022. patient feels that Effexor may have made his mood worse. Is advocating for higher Klonopin. Overall patient agreed to lower Effexor down to 112.5 mg to see if this has a positive impact on his mood i.e. he believes it may be giving him problems. Maintain Remeron 15 mg. will change Klonopin to 1 mg twice daily, which he was on prior to discharge from [place] in December 2022. will utilize Thorazine 25 mg as needed for any nausea and severe anxiety for/panic attacks 05/03 : No changes. Did submit three-day notice. 05/04: continue current mgmt. laser-focused on getting klonopin increased. 3- day up . 05/05: rescinded 3-day notice. starting lithium trial at 450 BID. Reason for continued inpatient stay Substantial Risk for: rapid decompensation Time Spent With Patient Time: Total time managing care of this patient today __35__ minutes.
[2023-05-05 19:10] VITALS: BP 131/79; PULSE 83; RESP 18; TEMP 36.8; O2SAT 97
[2023-05-05] MEDS: Mirtazapine 15 MG TABLET PO (21:14)
[2023-05-06 07:35] VITALS: BP 122/73; PULSE 53; RESP 18; TEMP 36.4; O2SAT 99
[2023-05-06] MEDS: Venlafaxine HCl ER 37.5 MG CAP.ER.24H 112.5 MG PO (09:17)
[2023-05-06] MEDS: Lithium Carbonate ER 450 MG TABLET.ER PO ×2 (09:17→21:23)
[2023-05-06] MEDS: Omeprazole 20 MG CAPSULE.DR PO (09:17)
[2023-05-06] MEDS: Multivitamin TABLET 1 TAB PO (09:18)
[2023-05-06] MEDS: clonazePAM 1 MG TABLET PO ×2 (09:18→21:23)
[2023-05-06] MEDS: methADONE HCl 20 MG/2 ML ORAL.CONC 140 MG PO (09:19)
[2023-05-06] MEDS: Nicotine Polacrilex 2 MG GUM 4 MG BUCCAL ×4 (09:42→21:35)
[2023-05-06] MEDS: chlorproMAZINE HCl 25 MG TABLET PO (13:30)
--- NOTE | 2023-05-06 15:19 | P.PNPSI_ITS ---
Subjective Subjective Date of Service: 05/06/23 Reason For Visit: opiate, cannabis, benzodiazepine, use disorder, SI Interim History: calm, cooperative. feels a little more even-keeled. feels his anxiety is better in a controlled setting, so it is hard to see how effective lithium may be for him in the real world. does feel D/C of buspar was helpful, feeling that had made him more agitated, somehow. per staff, 3-day up thursday. mild dep/anx. +ADLs. + meals. thorazine x 2 yesterday eves. slept about 7 hours. Mental Status Exam Mental Status Exam Narrative: adequately dressed and groomed in street clothes. cooperative. no PMA/PMR. speech nml rate, amount, loudness, latency. thoughts linear and logical. affect flexible, normo-intense, non-labile. mood a little more even-keeled. no SI/HI/AVH expressed. Diagnostics Vital Signs (24Hr): Vital Signs - 24 hr 05/05/23 19:10 05/06/23 07:35 Temperature 98.2 F 97.6 F Pulse Rate 83 53 Respiratory Rate 18 18 Blood Pressure 131/79 122/73 Pulse Oximetry 97 99 Oxygen Delivery Method Room Air Room Air BMI result Body Mass Index 33.2 Labs 04/30/23 19:49 04/30/23 19:49 Medications Medications Current Medications Acetaminophen (Acetaminophen 325 Mg Tablet) 650 mg PO Q6H PRN PRN Reason: Headache/Pain Mild Scale (1-3) Al Hydroxide/Mg Hydroxide (Magnesium Hydrox/Alum Hydrox 30 Ml Oral.Susp) 30 ml PO Q6H PRN PRN Reason: Heartburn/Nausea Chlorpromazine HCl (Chlorpromazine Hcl 25 Mg Tablet) 25 mg PO Q6H PRN PRN Reason: nausea. severe anxiety Last Admin: 05/06/23 13:30 Dose: 25 mg Clonazepam (Clonazepam 1 Mg Tablet) 1 mg PO BID [facility] Last Admin: 05/06/23 09:18 Dose: 1 mg Hydroxyzine HCl (Hydroxyzine Hcl 25 Mg Tablet) 25 mg PO Q6H PRN PRN Reason: Anxiety Nye Carbonate (Nye Carbonate Er 450 Mg Tablet.Er) 450 mg PO BID [facility] Last Admin: 05/06/23 09:17 Dose: 450 mg Magnesium Hydroxide (Milk Of Magnesia 30 Ml Oral.Susp) 30 ml PO DAILY PRN PRN Reason: Constipation Methadone HCl (Methadone Hcl 20 Mg/2 Ml Oral.Conc) 140 mg PO DAILY [facility] Last Admin: 05/06/23 09:19 Dose: 140 mg Mirtazapine (Mirtazapine 15 Mg Tablet) 15 mg PO BEDTIME [facility] Last Admin: 05/05/23 21:14 Dose: 15 mg Multivitamins/Vitamin C (Multivitamin Tablet) 1 tab PO DAILY [facility] Last Admin: 05/06/23 09:18 Dose: 1 tab Nicotine Polacrilex (Nicotine Polacrilex 2 Mg Gum) 4 mg BUCCAL Q2H PRN PRN Reason: Nicotine Cravings Last Admin: 05/06/23 13:30 Dose: 4 mg Olanzapine (Olanzapine 5 Mg Tablet) 5 mg PO Q4H PRN PRN Reason: agitation, james Omeprazole (Omeprazole 20 Mg Capsule.Dr) 20 mg PO DAILY [facility] Last Admin: 05/06/23 09:17 Dose: 20 mg Trazodone HCl (Trazodone Hcl 50 Mg Tablet) 50 mg PO BEDTIME MRX1 PRN PRN Reason: Insomnia Venlafaxine HCl (Venlafaxine Hcl Er 37.5 Mg Cap.Er.24h) 112.5 mg PO DAILY [facility] Last Admin: 05/06/23 09:17 Dose: 112.5 mg Allergies Allergies Allergy/AdvReac Type Severity Reaction Status Date / Time No Known Allergies Allergy Verified 01/12/21 14:30 [No Known Allergies*] Assessment & Plan Assessment & Plan (1) Acute anxiety: Status: Acute Code(s): F41.9 - Anxiety disorder, unspecified Assessment and Plan: (2) Panic disorder: Status: Acute Code(s): F41.0 - Panic disorder [episodic paroxysmal anxiety] Plan presents with agoraphobia and panic disorder. Comorbid history of psychosis. Also substance use disorder. Has been staying with father since December 2022. patient feels that Effexor may have made his mood worse. Is advocating for higher Klonopin. Overall patient agreed to lower Effexor down to 112.5 mg to see if this has a positive impact on his mood i.e. he believes it may be giving him problems. Maintain Remeron 15 mg. will change Klonopin to 1 mg twice daily, which he was on prior to discharge from [place] in December 2022. will utilize Thorazine 25 mg as needed for any nausea and severe anxiety for/panic attacks 05/03 : No changes. Did submit three-day notice. 05/04: continue current mgmt. laser-focused on getting klonopin increased. 3- day up . 05/05: rescinded 3-day notice. starting lithium trial at 450 BID. re-entered 3-day notice. 05/06: 3-day notice up thursday. asserting mood improved with DC of buspar and start of lithium. Reason for continued inpatient stay Substantial Risk for: inability to function and rapid decompensation Time Spent With Patient Time: Total time managing care of this patient today _25___ minutes.
[2023-05-06 19:40] VITALS: BP 147/93; PULSE 76; RESP 18; TEMP 36.4; O2SAT 100
[2023-05-06] MEDS: Mirtazapine 15 MG TABLET PO (21:23)
[2023-05-07 07:00] VITALS: BMI 32.1
[2023-05-07 08:37] VITALS: BP 132/66; PULSE 98; RESP 16; TEMP 36.3; O2SAT 98
[2023-05-07] MEDS: Omeprazole 20 MG CAPSULE.DR PO (09:32)
[2023-05-07] MEDS: methADONE HCl 20 MG/2 ML ORAL.CONC 140 MG PO (09:32)
[2023-05-07] MEDS: Multivitamin TABLET 1 TAB PO (09:32)
[2023-05-07] MEDS: Venlafaxine HCl ER 37.5 MG CAP.ER.24H 112.5 MG PO (09:32)
[2023-05-07] MEDS: clonazePAM 1 MG TABLET PO (09:32)
[2023-05-07] MEDS: Lithium Carbonate ER 450 MG TABLET.ER PO ×2 (09:32→21:06)
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
[2023-05-07] MEDS: chlorproMAZINE HCl 25 MG TABLET PO (11:32)
[2023-05-07] MEDS: Nicotine Polacrilex 2 MG GUM 4 MG BUCCAL ×4 (11:32→22:34)
[2023-05-07 19:30] VITALS: BP 127/82; PULSE 79; RESP 18; TEMP 37.1; O2SAT 96
[2023-05-07] MEDS: Mirtazapine 15 MG TABLET PO (21:06)
[2023-05-08] MEDS: Multivitamin TABLET 1 TAB PO (08:28)
[2023-05-08] MEDS: Lithium Carbonate ER 450 MG TABLET.ER PO (08:29)
[2023-05-08] MEDS: Omeprazole 20 MG CAPSULE.DR PO (08:29)
[2023-05-08] MEDS: methADONE HCl 20 MG/2 ML ORAL.CONC 140 MG PO (08:29)
[2023-05-08] MEDS: Venlafaxine HCl ER 37.5 MG CAP.ER.24H 112.5 MG PO (08:29)
[2023-05-08 08:35] LABS: Lithium 0.47 mmol/L (0.60-1.20)
[2023-05-08 08:41] LABS: Anion Gap 14 (12-20); Blood Urea Nitrogen 14 mg/dL (9-16); Carbon Dioxide 29 mmol/L (22-29); Chloride 105 mmol/L (96-108); Creatinine Clr Calc Pharmacy 124.6; Estimated Glomerular Filt Rate > 60; Glucose Random 106 mg/dL (60-115); Potassium 3.7 mmol/L (3.3-5.1); Sodium 144 mmol/L (135-145)
[2023-05-08 08:43] VITALS: BP 132/81; PULSE 78; RESP 18; TEMP 36.7; O2SAT 99
[2023-05-08] MEDS: clonazePAM 1 MG TABLET PO (09:01)
[2023-05-08] MEDS: Nicotine Polacrilex 2 MG GUM 4 MG BUCCAL ×2 (10:10→12:53)
[2023-05-08] MEDS: chlorproMAZINE HCl 25 MG TABLET PO (10:11)
--- NOTE | 2023-05-14 20:13 | PC.NURSE ---
Late Entry for 05/07/23 [id number] shift Patient had Klonopin 1mg at 2100 hrs ordered. I scanned and Reviewed all scheduled meds with patient prior to opening blister packets to administer. Medication was given as ordered. TW thought the Klonopin 1mg was scanned and saved. This note is to clarify that the medication was given to the patient as ordered.
== END 2023-05-08 15:15 | disposition home or self-care (01) | DRG 880 ==
LOC: HO.ED 05-01 07:56 → HO.PADLT16 05-01 17:11
PROVIDERS: Emergency Medicine; Admitting Provider Clinical Nurse Specialist Psychiatric/Mental Health, Adult; Emergency Provider Emergency Medicine Emergency Medical Services; Visit Provider Psychiatry & Neurology Psychiatry
DX: F41.0 Panic disorder [episodic paroxysmal anxiety] (principal); R45.851 Suicidal ideations; F11.20 Opioid dependence, uncomplicated; F43.10 Post-traumatic stress disorder, unspecified; F17.210 Nicotine dependence, cigarettes, uncomplicated; Z71.6 Tobacco abuse counseling; Z20.822 Contact with and (suspected) exposure to COVID-19; Z79.899 Other long term (current) drug therapy
CPT/HCPCS: 36415; 80048; 80061; 80076; 80143; 80178; 80179; 80307; 81001; 82607; 82746; 83036; 83540; 83735; 84439; 84443; 85025; 87086; 87635; 93005; 99285; S9485

== ENCOUNTER → 2023-05-01 08:03 | Outpatient (BNV) | payer OTHER, SELFPAY | PROVIDERS: Emergency Provider Emergency Medicine Emergency Medical Services; Visit Provider Internal Medicine Cardiovascular Disease | DX: R00.1 Bradycardia, unspecified (principal) | CPT/HCPCS: 93010 ==

== ENCOUNTER → 2023-05-01 17:07 | Outpatient (BNV) | payer OTHER, SELFPAY | PROVIDERS: Admitting Provider Clinical Nurse Specialist Psychiatric/Mental Health, Adult; Emergency Provider Emergency Medicine Emergency Medical Services; Visit Provider Psychiatry & Neurology Psychiatry | DX: F41.0 Panic disorder [episodic paroxysmal anxiety] (principal); F41.9 Anxiety disorder, unspecified | CPT/HCPCS: 90792; 99231; 99232; 99239 ==

== ENCOUNTER 2023-06-20 10:35 | Inpatient (IN) | payer OTHER, SELFPAY ==
[2023-06-20 10:49] VITALS: BP 120/67; PULSE 90; RESP 19; TEMP 37.3; O2SAT 99; BMI 33.6
--- NOTE | 2023-06-20 10:49 | ED_ITS ---
HPI - General Adult General Chief complaint: Psychiatric Symptoms Stated complaint: crisis Time Seen by Provider: 06/20/23 11:18 Source: patient Mode of arrival: ambulatory Limitations: no limitations History of Present Illness HPI narrative: 23 yo male with history of bipolar disorder, anxiety, PTSD presents to the ER with concern from family that he is talking to himself, quite disoriented. They report the patient has had several inpatient admissions for similar presentation here [facility]. The patient denies any SI or HI. He denies any hallucinations. He does smoke marijuana. His medications are dispensed by his family. They do tell me the patient is taking them as prescribed. Does see a psychiatrist at [facility] ([facility]). He does not have a therapist. He has no physical complaints Related Data Home Medications Medication Instructions Recorded Confirmed methadone 10 mg/mL oral concentrate 140 mg PO DAILY 05/01/23 05/01/23 mirtazapine 15 mg tablet 15 mg PO BEDTIME 05/01/23 06/20/23 Previous Rx's Medication Instructions Recorded chlorpromazine 25 mg tablet 25 mg PO BID PRN nausea. severe 05/07/23 anxiety 30 days #60 tabs clonazepam 1 mg tablet 1 mg PO BID 4 days #8 tabs 05/07/23 lithium carbonate 450 mg 450 mg PO BID 30 days #60 tabs 05/07/23 tablet,extended release multivitamin (Daily-Edna tablet) 1 tab PO DAILY 30 days #30 tabs 05/07/23 omeprazole 20 mg capsule,delayed 20 mg PO DAILY 30 days #30 caps 05/07/23 release venlafaxine 37.5 mg 112.5 mg (3 x 37.5 mg) PO DAILY 30 05/07/23 capsule,extended release 24 hr days #90 caps Allergies Allergy/AdvReac Type Severity Reaction Status Date / Time No Known Allergies Allergy Verified 01/12/21 14:30 [No Known Allergies*] Review of Systems 2 Review of Systems: Yes all other systems are reviewed and are negative Constitutional: Constitutional: Reports no additional constitutional complaints, Denies body ache(s), Denies chills, Denies fever(s), Denies headache(s) and Denies weakness Eyes: Eyes: Reports no additional eye complaints and Denies change in vision ENT: Reports system reviewed and no additional complaints, except as documented, Denies dizziness, Denies headache(s), Denies nasal congestion, Denies nasal discharge and Denies neck pain Cardiovascular: Cardiovascular: Reports no additional cardiovascular complaints, Denies chest pain, Denies leg edema and Denies dyspnea Respiratory: Respiratory: Reports no additional respiratory complaints, Denies cough and Denies dyspnea Gastrointestinal: Gastrointestinal: Reports no additional gastrointestinal complaints, Denies abdominal pain, Denies diarrhea, Denies nausea and Denies vomiting Genitourinary: Genitourinary: Denies urinary incontinence Musculoskeletal: Musculoskeletal: Reports no additional musculoskeletal complaints, Denies back pain, Denies arthralgias, Denies joint swelling, Denies neck pain, Denies numbness and Denies tingling Integumentary/Breasts: Skin/Breast: Reports system reviewed and no additional complaints, except as docu and Denies rash Neurologic: Reports system reviewed and no additional complaints, except as documented, Denies Abnormal speech present, Reports behavioral changes, Denies dizziness, Denies headache(s), Denies numbness, Denies tingling and Denies weakness Psychiatric: Psychiatric: Reports behavioral changes, Denies homicidal ideation and Denies suicidal ideation PMFSH Past Medical History Attestation statement: The following information was validated with the patient. Source: old records reviewed and nursing notes reviewed Onset Date is defined in the Problem List Problems that require an onset date and time if occurred within 24 hrs of arrival to the ED Aortic Dissection and Rupture; Neurologic impairment; Cardiopulmonary Arrest; Endotracheal Intubation; Insertion or Replacement of Mechanical Circulatory Assist Device Medical History PTSD (post-traumatic stress disorder) Opioid use disorder, severe, on maintenance therapy Cannabis use disorder, severe, dependence Severe benzodiazepine use disorder Anxiety Depression Opioid use disorder Social History Social History Household Members: Family Household Members Other:: father, younger brother Housing: House Do you presently have visiting nurse or other home services: No Alcohol intake: never Patient Tobacco Use Status: Current everyday Tobacco user Tobacco use type: Smokeless Tobacco Cigarette Packs Per Day: 1 Cigarettes Per Day: 20.0 Years Smoked: 5 Smoked in Last 30 Days: Yes e-Cigarette/Vaping Use: Currently Using Second Hand Smoke Exposure: Yes Substance Use Type: Marijuana Advance Directives: No Advance Directives Information Provided: No service: No Sexual orientation: Straight/Heterosexual Physical Exam ED Vital Signs: Vital Signs - 24 hr 06/20/23 10:49 06/20/23 14:51 Temperature 99.1 F Pulse Rate 90 56 Respiratory Rate 19 18 Blood Pressure 120/67 124/78 Pulse Oximetry 99 100 Oxygen Delivery Method Room Air Room Air BMI result Body Mass Index 33.6 Const General: cooperative, healthy appearing, comfortable and no acute distress Orientation/consciousness: patient oriented x3 Limitations: no limitations HENMT Head: Yes normal to inspection Ears: hearing grossly normal bilaterally General nose exam: Normal external nose present Face and sinus: Yes normal facial exam Mouth: Normal oral and palatal mucosa present Throat: Yes posterior oropharynx normal Eyes General: appearance normal, both eyes and all related structures Pupils: Equal, round and reactive pupils present Neck Neck: Yes normal visual inspection Chest Chest palpation & inspection: normal inspection of the chest Resp Effort & Inspection: normal respiratory effort Auscultation: clear to auscultation bilaterally Cardio Rate: regular rate Rhythm: regular rhythm Peripheral pulses: Peripheral pulses 2+ throughout GI Inspection: Yes normal to inspection Palpation (GI): Soft to palpation and nontender Auscultation: normal bowel sounds Back/Spine/Pelvis Thoracic/Lumbar Spine: thoracic and lumbar spine normal to inspection Skin General skin exam: no rashes or lesions noted Neuro General: patient oriented x3, no focal motor deficits and normal sensation to monofilament Cranial nerves: Yes Equal, round and reactive pupils present Cognition (Neuro): normal cognition Speech: No Abnormal speech present Gait exam (Neuro): Normal gait present Motor exam (neuro): 5/5 motor strength present throughout Extrem General: Yes normal to inspection Course Course Course Narrative: This is a rapid medical exam: Additional HPI, ROS, PE not included below will be deferred to primary provider. Patient is a 23-year-old male with history of schizophrenia, panic disorder, opioid use disorder, cannabis use disorder presenting to the ED with complaint of severe anxiety, feels he is having adverse reaction to his medications, is acting out of character. Father is present, states patient is having a psychotic break. Reports patient is having episodes of disorientation, misplacing items, he is afraid to leave patient at home alone. Patient denies SI/HI, auditory or visual hallucinations. Plan: medical clearance and CARE team eval Reevaluation(s) Reevaluation #1: 1515-Reviewed labs/LOZANO. Placed in physician observation pending disposition. Reevaluation #2: 1600-Sign out to Christina ARNOLD pending CARE team consult Medical Decision Making Medical Decision Making [facility] Narrative: 23 yo male with history of bipolar disorder, anxiety, PTSD presents to the ER with concern from family that he is talking to himself, quite disoriented. They report the patient has had several inpatient admissions for similar presentation here [facility]. The patient denies any SI or HI. He denies any hallucinations. He does smoke marijuana. His medications are dispensed by his family. They do tell me the patient is taking them as prescribed. Does see a psychiatrist at [facility] ([facility]). He does not have a therapist. He has no physical complaints Most of the history of present illness is provided by the father who is at the bedside. No concern for acute ingestion or trauma Patient will need labs, drug screen Once medically cleared he will need a crisis consultation with collateral information obtained from the patients father Differential Diagnosis Differential Diagnoses: The differential diagnosis associated with the presentation includes Bipolar disorder Admission/Observation Consideration of admission/observation: Escalation of care including admission/observation considered Decompensated bipolar disorder Lab Data [facility] Lab Attestation statement: I reviewed the patient's lab results. 06/20/23 11:02 06/20/23 11:02 Labs: Lab Results 06/20/23 Range/Units 11:02 WBC 7.8 (4.8-10.8) X10*3/uL RBC 4.36 L (4.60-5.80) X10*6/uL Hgb 13.1 L (14.0-18.0) g/dl Hct 39.4 L (42.0-52.0) % MCV 90.4 (80.0-98.0) fL MCH 30.0 (27.0-33.0) pg MCHC 33.2 (31.0-36.0) g/dl RDW 13.7 (11.0-16.0) % Plt Count 139 L (160-400) X10*3/uL MPV 11.9 (9.4-12.4) fL Immature Gran % (Auto) 0.4 (0.0-0.4) % Neut % (Auto) 63.8 (45-73) % Lymph % (Auto) 26.1 (20-40) % [place] % (Auto) 5.1 (2-11) % Eos % (Auto) 3.7 (0-4) % Baso % (Auto) 0.9 (0-2) % Lymph # (Auto) 2.0 (1.2-4.9) X10*3/uL [place] # (Auto) 0.4 (0.1-1.2) X10*3/uL Eos # (Auto) 0.3 (0.0-0.4) X10*3/uL Baso # (Auto) 0.1 (0.0-0.2) X10*3/uL Abs Immat Gran (auto) 0.03 (0.00-0.03) X10*3/uL Absolute Neuts (auto) 5.0 (2.0-8.3) x10*3/uL Absolute Nucleated RBC 0.000 (0.0-0.012) X10*3/uL Nucleated RBC % (auto) 0.0 (0.0-0.2) /100WBC Sodium 140 (135-145) mmol/L Potassium 3.6 (3.3-5.1) mmol/L Chloride 106 (96-108) mmol/L Carbon Dioxide 25 (22-29) mmol/L Anion Gap 13 (12-20) BUN 13 (9-16) mg/dL Creatinine 0.94 (0.5-1.4) mg/dL Estim Creat Clear Calc 160.0 Estimated GFR > 60 Random Glucose 134 H (60-115) mg/dL Calcium 9.3 D (8.4-10.2) mg/dL Urine Color Yellow Urine Appearance Clear Urine pH 6.5 (5.0-9.0) Ur Specific [place] 1.020 (1.005-1.025) Urine Protein Negative (Neg-Trace) mg/dL Urine Glucose (UA) Negative (Negative) mg/dL Urine Ketones Trace (Negative) mg/dL Urine Blood Negative (Negative) Urine Nitrite Negative (Negative) Ur Leukocyte Esterase Negative (Negative) Salicylates < 5.0 L (15-30) mg/dL Urine Opiates Screen Not Detected (Not Detect) Urine Fentanyl Screen Not Detected (Not Detect) Acetaminophen < 3 (<30) mcg/mL Ur Barbiturates Screen Not Detected (Not Detect) Ur Phencyclidine Scrn Not Detected (Not Detect) Ur Amphetamines Screen Not Detected (Not Detect) U Benzodiazepines Scrn POSITIVE H (Not Detect) Urine Cocaine Screen Not Detected (Not Detect) U Marijuana (THC) Screen POSITIVE H (Not Detect) Ethyl Alcohol < 10 mg/dL COVID-19 ([facility]) Negative (Negative) COVID-19 Clin Com See Note Independent Historian Clinical information obtained from an independent historian. History obtained from or confirmed by: Parent Discharge Plan Discharge Clinical Impression: Bipolar disorder Patient Disposition: Still a Patient Prescriptions: No Action mirtazapine 15 mg tablet 15 mg PO BEDTIME methadone 10 mg/mL Concentrate 140 mg PO DAILY Rx Instructions: Last dose confirmed with KELLI [place] 140mg 04/30/23 venlafaxine 37.5 mg Capsule,Extended Release 24hr 112.5 mg PO DAILY 30 Days Qty: 90 0RF clonazepam 1 mg Tablet 1 mg PO BID 4 Days Qty: 8 0RF lithium carbonate 450 mg Tablet Extended Release 450 mg PO BID 30 Days Qty: 60 0RF chlorpromazine 25 mg Tablet 25 mg PO BID PRN (Reason: nausea. severe anxiety) 30 Days Qty: 60 0RF omeprazole 20 mg Capsule,Delayed Release(Dr/Ec) 20 mg PO DAILY 30 Days Qty: 30 0RF multivitamin [Daily-Edna] Tablet 1 tab PO DAILY 30 Days Qty: 30 0RF Interventions: [place]-Suicide Risk Severity Scale Last Done: 06/20/23 14:53
--- NOTE | 2023-06-20 10:56 | PC.NURSE ---
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 PT IS A IVDU - USUALLY USES FENTANYL AND HEROIN, BUT HAS NOT USED BECAUSE HE IS GETTING DRUG TESTED.
[2023-06-20 11:09] LABS: MANUAL DIFF FLAG NO
[2023-06-20 11:11] LABS: Basophils Absolute Auto 0.1 X10*3/uL (0.0-0.2); Basophils Percent Auto 0.9 % (0-2); Eosinophils Absolute Auto 0.3 X10*3/uL (0.0-0.4); Eosinophils Percent Auto 3.7 % (0-4); Hematocrit 39.4 % (42.0-52.0); Hemoglobin 13.1 g/dl (14.0-18.0); Imm Gran Abs Auto 0.03 X10*3/uL (0.00-0.03); Imm Gran Pct Auto 0.4 % (0.0-0.4); Lymphocytes Percent Auto 26.1 % (20-40); Mean Corpuscular HGB Conc 33.2 g/dl (31.0-36.0); Mean Corpuscular Volume 90.4 fL (80.0-98.0); Mean Platelet Volume 11.9 fL (9.4-12.4); Monocytes Absolute Auto 0.4 X10*3/uL (0.1-1.2); Monocytes Percent Auto 5.1 % (2-11); Neutrophils Percent Auto 63.8 % (45-73); Platelet Count 139 X10*3/uL (160-400); Red Blood Count 4.36 X10*6/uL (4.60-5.80); Red Cell Distribution Width 13.7 % (11.0-16.0); White Blood Count 7.8 X10*3/uL (4.8-10.8)
[2023-06-20 11:13] LABS: Appearance Urine Clear; Color Urine Yellow; Glucose Urine UA Negative (Negative); Leukocyte Esterase Urine Negative (Negative); Nitrite Urine Negative (Negative); PH 6.5 (5.0-9.0); Urine Blood Negative (Negative); Urine Ketones Trace mg/dL (Negative); Urine Protein Negative (Neg-Trace)
[2023-06-20 11:18] LABS: Amphetamine Screen Urine Not Detected (Not Detect); Barbiturates, Urine Not Detected (Not Detect); Benzodiazepines Screen Urine POSITIVE (Not Detect); Cannabinoid Screen Urine POSITIVE (Not Detect); Cocaine Screen Urine Not Detected (Not Detect); Fentanyl, urine Not Detected (Not Detect); Opiate Screen Urine Not Detected (Not Detect); Phencyclidine Screen Urine Not Detected (Not Detect)
[2023-06-20 11:22] LABS: Ethanol < 10 mg/dL
[2023-06-20 11:23] LABS: Anion Gap 13 (12-20); Blood Urea Nitrogen 13 mg/dL (9-16); Calcium 9.3 mg/dL (8.4-10.2); Carbon Dioxide 25 mmol/L (22-29); Chloride 106 mmol/L (96-108); Estimated Glomerular Filt Rate > 60; Glucose Random 134 mg/dL (60-115); Potassium 3.6 mmol/L (3.3-5.1); Sodium 140 mmol/L (135-145)
[2023-06-20 11:27] LABS: Acetaminophen LAB < 3 mcg/mL (<30); Salicylate < 5.0 mg/dL (15-30)
[2023-06-20 11:28] LABS: COVID-19 Test Negative (Negative); IDNOW Serial# 08D9AD1C
--- OUTSIDE RECORDS SUMMARY | 2023-06-20 11:43 | XMS_ITS | Continuity of Care Document ---
Author Name Unknown Organization [facility] Address Unknown Care Team Providers Care Internet Assessor Name Role Phone Mykel Marquis MD Primary Care Physician Encounter [facility] Date(s): 08/28/21 - 09/27/21 [facility] Allergies, Adverse Reactions, Alerts No Known Allergies Immunizations Given and Recorded Vaccine Date Status Refusal Reason SARS-CoV-2 (COVID-19) mRNA BNT-162b2 vac 02/22/21 Given SARS-CoV-2 (COVID-19) mRNA BNT-162b2 vac 12/28/20 Given meningococcal group B vaccine 01/13/18 Recorded meningococcal group B vaccine 12/10/16 Recorded Human Papillomavirus Vaccine 08/15/14 Recorded Human Papillomavirus Vaccine 03/02/14 Recorded Human Papillomavirus Vaccine 10/14/13 Recorded influenza virus vaccine, live 03/02/14 Recorded influenza virus vaccine, live 06/24/13 Recorded influenza virus vaccine, live 02/11/12 Recorded influenza virus vaccine, live 03/20/11 Recorded Hepatitis A Pediatric Vaccine 03/02/14 Recorded Hepatitis A Pediatric Vaccine 06/24/13 Recorded Meningococcal Conjugate Vaccine 06/24/13 Recorded Meningococcal Conjugate Vaccine 04/30/10 Recorded Medications clonazePAM 0.5 mg oral tablet 0.5 tablet = 0.25 mg, By Mouth, 3 times a day, PRN Anxiety, 0 Refills, Maintenance, 08/15/21 15:17:00 EDT, Tablet, Partial fill upon patient request if the prescription is for a schedule II opioid drug. Start Date: 08/15/21 Status: Ordered duloxetine 30 mg oral enteric coated capsule See Instructions, TAKE 1 CAPSULE BY MOUTH DAILY, # 30 capsule, 0 Refills, [facility] #[id number], 185, cm, 12/28/20 15:45:00 EDT, Height Start Date: 01/25/21 Status: Ordered methadone 10 mg oral tablet = 115 mg, By Mouth, Daily, 0 Refills, Maintenance, 08/16/21 12:25:00 EDT, Tablet, Partial fill uponpatient request if the prescription is for a schedule II opioid drug. Start Date: 08/16/21 Status: Ordered Narcan 4 mg/0.1 mL nasal spray = 4 mg, Nares, Both, Once, for over dose, # 2 each, 0 Refills, Soft Stop, 08/16/21 12:26:00 EDT, [facility], Partial fill upon patient request if the prescription is for a schedule II opioid drug., 186, cm, 08/16/21 7:29:00 EDT, Height,... Start Date: 08/16/21 Status: Ordered Problem List Condition Effective Dates Status Health Status Inform ant Abdominal pain(Confirmed) Active Anxiety(Confirmed) Active Anxiety, generalized(Confirmed) Active Nicotine dependence(Confirmed) Active Obese class II(Confirmed) Active Opioid dependence(Confirmed) Active Addiction, opium(Confirmed) Active Major depressive disorder, severe(Confirmed) Active Vomiting(Confirmed) Active Social History Social History Type Response Tobacco Use: 4 or less cigar ettes(less than 1/4 pack)/day in last 30 days. Other: Vapes. Tobacco user in household: No. Sex
--- OUTSIDE RECORDS SUMMARY | 2023-06-20 11:43 | XMS_ITS | Continuity of Care Document ---
Author Name Unknown Organization [facility] ter Address [address] [place] [id number]- Care Team Providers Care Financial Reporting Accountant Name Role Phone Mykel Marquis MD Primary Care Physician Encounter [facility] Date(s): 08/15/21 - 08/16/[address] [address]- Discharge Disposition: A-D/C AMA Attending Physician: Claritza Garzon MD Admitting Physician: Sukhjinder Vinson MD Referring Physician: Not on Staff, Referring MD Allergies, Adverse Reactions, Alerts No Known Allergies [...] Recorded Meningococcal Conjugate Vaccine 04/30/10 Recorded Medications acetaminophen 325 mg oral tablet 650 mg, Tablet, By Mouth, 08/16/21 5:07:00 EDT Start Date: 08/16/21 Stop Date: 08/16/21 Status: Completed Bactrim 400 mg-80 mg oral tablet 2 tablet, By Mouth, Every 12 hours, for 5 days, # 20 tablet, 0 Refills, Acute 08/21/21 12:36:00 EDT, 08/16/21 12:36:00 EDT, Tablet, [facility]/pharmacy #[id number], Partial fill upon patient request if the prescription is for a schedule II opioid drug., 2 tablet B... Start Date: 08/16/21 Stop Date: 08/21/21 Status: Ordered clonazePAM 0.5 mg oral tablet 0.5 tablet [...] MOUTH DAILY, # 30 capsule, 0 Refills, [facility] #[id number], 185, cm, 12/28/20 15:45:00 EDT, Height Start [...] 0 Refills, Soft Stop, 08/16/21 12:26:00 EDT, [facility], Partial fill upon patient request if the prescription is for a schedule II opioid drug., 186, cm, 08/16/21 7:29:00 EDT, Height,... Start Date: 08/16/21 Status: Ordered oxyCODONE 5 mg oral tablet 5 mg, Tablet, By Mouth, Every 4 hours, PRN for Pain , Severe, Routine, 08/16/21 10:11:00 EDT Start Date: 08/16/21 Stop Date: 08/16/21 Status: Discontinued Problem List Condition Effective Dates Status Health Status Inform ant Abdominal pain(Confirmed) Active Anxiety(Confirmed) Active Anxiety, generalized(Confirmed) Active Nicotine dependence(Confirmed) Active Opioid dependence(Confirmed) Active Addiction, opium(Confirmed) Active Major depressive disorder, severe(Confirmed) Active Vomiting(Confirmed) Active Procedures Procedure Date Related Diagnosis Body Site Status Incision and drainage of abs cess (eg, carbuncle, suppurative hidradenitis, cutaneous or subcutaneous abscess, cyst, furuncle, or paronychia); simple or single 1 08/15/21 Completed 1left antecubital fossa Results Orders for Microbiology Reports Name Date Anaerobic Culture (ANAEROBIC CULTURE) Fungal Culture, Nonrespiratory (FUNGAL C ULT,NON-RESPIRATORY) 08/15/21 Wound Deep Culture w/ Gram Smear (DEEP W OUND CULTURE) 08/15/21 Blood Culture 08/15/21 Blood Culture #2 08/15/21 Microbiology Reports TEST:Anaerobic Culture STATUS:Unauthenticated BODY SITE: SOURCE:PUS COLLECTED DATE/TIME:08/15/21 4:38 PM Anaerobic Culture SPECIMEN DESCRIPTION : PUS ASPIRATE, LEFT ANTECUBITAL FOSSA SPECIAL REQUESTS : NONE CULTURE : NO ANAEROBES ISOLATED SO FAR. REPORT STATUS : PRELIMINARY REPORT TEST:Deep Wound Culture STATUS:Unauthenticated BODY SITE: SOURCE:PUS COLLECTED DATE/TIME:08/15/21 4:38 PM Deep Wound Culture SPECIMEN DESCRIPTION : PUS LEFT ANTECUBITAL FOSSA SPECIAL REQUESTS : NONE GRAM STAIN : 4+ POLYMORPHONUCLEAR LEUKOCYTES 3+ GRAM POSITIVE COCCI REPORT STATUS : PRELIMINARY REPORT TEST:Fungal Culture, Non-Respiratory STATUS:Unauthenticated BODY SITE: SOURCE:PUS COLLECTED DATE/TIME:08/15/21 4:38 PM Fungal Culture, Non-Respiratory SPECIMEN DESCRIPTION : PUS ASPIRATE, LEFT ANTECUBITAL FOSSA SPECIAL REQUESTS : NONE DIRECT EXAM : NO FUNGAL ELEMENTS OBSERVED REPORT STATUS : PRELIMINARY REPORT TEST:Blood Culture, Second Order STATUS:Unauthenticated BODY SITE: SOURCE:Blood COLLECTED DATE/TIME:08/15/21 9:50 AM Blood Culture, Second Order SPECIMEN DESCRIPTION : BLOOD NONE SPECIAL REQUESTS : NONE CULTURE : NO GROWTH AFTER 24 HOURS REPORT STATUS : PRELIMINARY REPORT TEST:Blood Culture STATUS:Unauthenticated BODY SITE: SOURCE:Blood COLLECTED DATE/TIME:08/15/21 8:53 AM Blood Culture SPECIMEN DESCRIPTION : BLOOD RAC SPECIAL REQUESTS : NONE CULTURE : NO GROWTH AFTER 24 HOURS REPORT STATUS : PRELIMINARY REPORT Radiology Reports * Exam Date Time Procedure Performing Provider Status 08/15/21 10:45 AM Elbow Min 3 Views Left Elizabeth Salguero ; Auth (Verified) Notes: (Elbow Min 3 Views Left) Reason For Exam: IVDA, antecubital infection;Erythema RESULT: Elbow Min 3 Views Left Elbow Min 3 Views Left, 3 views Hx of Present Illness: IVDA uses heroin- last use 3-4 days ago to L AC- now has hardened area to L AC with erythema; Reason: Erythema; IVDA, antecubital infection; Clinical Question(s): Foreign Body COMPARISON: None. FINDINGS: Conglomerate of ill-defined soft tissue lucencies seen in the antecubital fossa. There is no evidence of radiopaque foreign body. No fracture or dislocation. No arthritic changes. No joint effusion. IMPRESSION: No evidence of acute fracture. No evidence of radiopaque foreign body. Conglomerate of soft tissue lucencies compatible with history of antecubital injection. If clinicalconcern, may consider dedicated soft tissue ultrasound CT scan to rule out abscess. I have personally reviewed the images and I agree with this report. WSN: [id number] Ordering Physician: Bhavya Quiñonez Dictated By: Avinash Campo DO Dictated Date/Time: 08/15/21 11:47 a Reviewed By: Ermias Garcia MD, V Signed By: Ermias Garcia MD, V Signed Date/Time: 08/15/21 11:52 am Transcribed By: TERESA Transcribed Date/Time: 08/15/21 11:40 am Vital Signs Most recent to oldest [Reference Range]: 1 2 3 Height 186 cm (08/16/21 7:00 AM) 186 cm (08/16/21 3:58 AM) 186 cm (08/15/21 8:26 PM) Weight 87.5 kg (08/16/21 7:00 AM) 87.5 kg (08/15/21 8:26 PM) 109 kg (08/15/21 3:30 PM) Oxygen Saturation [94-100 %] 99 % (08/16/21 7:00 AM) 100 % (08/16/21 3:58 AM) 98 % (08/15/21 11:00 PM) Pulse Rate [55-90 bpm] 57 bpm (08/16/21 7:00 AM) 61 bpm (08/16/21 3:58 AM) 67 bpm (08/15/21 11:00 PM) Body Mass Index [18.5-24.99] 25.29 *H* (08/15/21 8:26 PM) 31.51 *>HHI* (08/15/21 3:30 PM) 31.51 *>HHI* (08/15/21 2:51 PM) Blood Pressure [90-138/55-84 mm Hg] 130/77mm Hg (08/16/21 7:00 AM) 128/65mm Hg (08/16/21 3:58 AM) 134/82mm Hg (08/15/21 11:00 PM) Respiratory Rate [16-30 br/min] 18 br/min (08/16/21 9:50 AM) 18 br/min (08/16/21 7:00 AM) 18 br/min (08/16/21 6:54 AM) Temperature [96.8-100.4 DegF] 97.9 DegF (08/16/21 7:00 AM) 97.9 DegF (08/16/21 3:58 AM) 97.9 DegF (08/15/21 11:00 PM) Liters per Minute 0 L/min (08/15/21 7:15 PM) 6 L/min (08/15/21 5:00 PM) Mode of Delivery (Oxygen) Room air (08/16/21 7:00 AM) Room air (08/16/21 3:58 AM) Room air (08/15/21 11:00 PM) Blood pressure sites Arm, right (08/16/21 7:00 AM) Arm, right (08/16/21 3:58 AM) Arm, right (08/15/21 11:00 PM) Temperature Route Oral (08/16/21 7:00 AM) Oral (08/16/21 3:58 AM) Oral (08/15/21 11:00 PM) Dry Weight 87.5 kg (08/15/21 8:26 PM) Social History Social History Type Response Tobacco Use: 4 or less cigar ettes(less than 1/4 pack)/day in last 30 days. Other: Vapes. Tobacco user in household: No. Sex
--- OUTSIDE RECORDS SUMMARY | 2023-06-20 11:43 | XMS_ITS | Continuity of Care Document ---
Author Name Unknown Organization [facility] Address [address] [place] [address]- Care Team Providers Care Director Of Maternity Services Name Role Phone Mykel Marquis MD Primary Care Physician [place] [facility]19[place]19 - 09/24/19 [facility]/[address] [address]- [facility] Attending Physician: Mykel Marquis MD Admitting Physician: Mykel Marquis MD Allergies, Adverse Reactions, Alerts Substance Reaction Severity Status Percocet 5/325 1 Active 1severe agitation Medications Crutches Crutches, See Instructions, # 1 each, Refills 0, Tot. Refills 0, Maintenance, Use crutches to ambulate until you can be evaluated by orthopedic surgery, 01/17/12 19:43:43 Start Date: 01/17/12 Status: Ordered gabapentin 300 mg oral capsule 300 mg, 1, capsule, By Mouth, 3 times a day, # 270 capsule, Refills 5, Tot. Refills 5, Maintenance,09/02/19 14:13:00 EDT, Route to Pharmacy Electronically, [facility], 185, cm, 08/01/19 11:16:00 EST, Height Start Date: 09/02/19 Status: Ordered hydrOXYzine hydrochloride 50 mg oral tablet 1 tablet = 50 mg, By Mouth, 2 times a day, # 60 capsule, 2 Refills, Acute 10/01/20 13:47:00 EDT, 09/02/19 14:13:00 EDT, [facility], 185, cm, 08/01/19 11:16:00 EST, Height Start Date: 09/02/19 Stop Date: 10/01/20 Status: Ordered omeprazole 20 mg oral delayed release tablet 1 tablet = 20 mg, By Mouth, Daily, # 30 tablet, 1 Refills, Maintenance, 09/21/19 10:21:00 EDT, [facility]/pharmacy #[id number], 185, cm, 08/01/19 11:16:00 EST, Height Start Date: 09/21/19 Status: Ordered Remeron 15 mg oral tablet 1 tablet = 15 mg, By Mouth, Daily at bedtime, # 30 tablet, 3 Refills, Maintenance, 08/17/19 12:07:00 EDT, Tablet, [facility], 185, cm, 08/01/19 11:16:00 EST, Height Start Date: 08/17/19 Status: Ordered Suboxone 8 mg-2 mg sublingual film 1 film, Sublingual, Daily, masspat verified Scavron [id number] dissolve under the tongue fill on/after 09/14/2019, # 28 film, 0 Refills, Maintenance, 09/15/19 11:46:00 EDT, Film, [facility]/pharmacy #[id number], 1film Sublingual Daily,x28 days,Instr:masspat v... Start Date: 09/15/19 Stop Date: 10/13/19 Status: Ordered Zofran 4 mg oral tablet 1 tablet = 4 mg, By Mouth, Every 8 hours, PRN Nausea & Vomiting, # 10 tablet, 1 Refills, Maintenance, 09/09/19 16:03:00 EDT, Tablet, [facility], 185, cm, 08/01/19 11:16:00 EST, Height Start Date: 09/09/19 Status: Ordered Problem List Condition Effective Dates Status Health Status Inform ant Opioid dependence(Confirmed) Active
--- OUTSIDE RECORDS SUMMARY | 2023-06-20 11:43 | XMS_ITS | Continuity of Care Document ---
Author Name Unknown Organization [facility] Address [address] [place] [address]- Care Team Providers Care Gold And Silver Assayer Name Role Phone Mykel Marquis MD Primary Care Physician Encounter [facility] [id number] Date(s): 09/23/19 - 10/27/19 [facility] [address] [place] [address]- [place] Attending Physician: Radha NEVES, Sherry Referring Physician: Mykel Marquis MD Allergies, Adverse Reactions, [...] Maintenance,09/02/19 14:13:00 EDT, Route to Pharmacy Electronically, [facility], 185, cm, 08/01/19 11:16:00 EST, Height Start Date: 09/02/19 Status: Ordered hydrOXYzine hydrochloride 50 mg oral tablet 1 tablet = 50 mg, By Mouth, 2 times a day, # 60 capsule, 2 Refills, Acute 10/01/20 13:47:00 EDT, 09/02/19 14:13:00 EDT, [facility], 185, cm, 08/01/19 11:16:00 EST, Height Start Date: 09/02/19 Stop Date: 10/01/20 Status: Ordered omeprazole 20 mg oral delayed release tablet 1 tablet = 20 mg, By Mouth, Daily, # 30 tablet, 1 Refills, Maintenance, 10/10/19 17:29:00 EDT, [facility]/pharmacy #[id number], 185, cm, 08/01/19 11:16:00 EST, Height Start Date: 10/10/19 Status: Ordered Remeron 15 mg oral tablet 1 tablet = 15 mg, By Mouth, Daily at bedtime, # 30 tablet, 3 Refills, Maintenance, 08/17/19 12:07:00 EDT, Tablet, [facility], 185, cm, 08/01/19 11:16:00 EST, Height Start Date: 08/17/19 Status: Ordered Suboxone 8 mg-2 mg sublingual film 1 film, Sublingual, Daily, masspat verified Scavron [id number] dissolve under the tongue fill on/after 10/12/2019, # 28 film, 0 Refills, Maintenance, 10/10/19 18:35:00 EDT, Film, [facility]/pharmacy #[id number], 1film Sublingual Daily,x28 days,Instr:masspat v... Start Date: 10/10/19 Stop Date: 11/07/19 Status: Ordered Zofran 4 mg oral tablet 1 tablet = 4 mg, By Mouth, Every 8 hours, PRN Nausea & Vomiting, # 10 tablet, 1 Refills, Maintenance, 10/10/19 17:23:00 EDT, Tablet, [facility]/pharmacy #[id number], 185, cm, 08/01/19 11:16:00 EST, Height Start Date: 10/10/19 Status: Ordered Problem List Condition Effective Dates Status Health Status Inform ant Opioid dependence(Confirmed) Active
--- OUTSIDE RECORDS SUMMARY | 2023-06-20 11:43 | XMS_ITS | Continuity of Care Document ---
Author Name Unknown Organization [facility] Address [address] [place] [address]- Care Team Providers Care Senior C Web Developer Name Role Phone Mykel Marquis MD Primary Care Physician [place] [facility] [place](s): 04/10/20 - 05/10/20 [facility]/[address] [address]- Allergies, Adverse Reactions, Alerts Substance Reaction Severity Status Percocet 5/325 1 Active 1severe agitation Medications clonazePAM 1 mg oral tablet 1 tablet = 1 mg, By Mouth, 2 times a day, # 14 tablet, 0 Refills, Maintenance, 05/09/20 13:59:00 EST, Tablet, [facility]/pharmacy #[id number], 185, cm, 03/30/20 14:01:00 EDT, Height Start Date: 05/09/20 Stop Date: 05/16/20 Status: Ordered Crutches Crutches, See Instructions, # 1 each, Refills 0, Tot. Refills 0, Maintenance, Use crutches to ambulate until you can be evaluated by orthopedic surgery, 01/17/12 19:43:43 Start Date: 01/17/12 Status: Ordered gabapentin 300 mg oral capsule 300 mg, 1, capsule, By Mouth, 3 times a day, # 270 capsule, Refills 5, Tot. Refills 5, Maintenance,09/02/19 14:13:00 EDT, Route to Pharmacy Electronically, [facility], 185, cm, 08/01/19 11:16:00 EST, Height Start Date: 09/02/19 Status: Ordered mirtazapine 15 mg oral tablet 1 tablet, By Mouth, Daily at bedtime, # 30 tablet, 5 Refills, Maintenance, 03/23/20 14:21:00 EDT, [id number], 185, cm, 08/01/19 11:16:00 EST, Height Start Date: 03/23/20 Status: Ordered omeprazole 40 mg oral enteric coated capsule 1 capsule = 40 mg, By Mouth, Daily, # 90 capsule, 2 Refills, Maintenance, 12/21/19 22:04:00 EDT, ECCapsule, [facility]/pharmacy #[id number], 185, cm, 08/01/19 11:16:00 EST, Height Start Date: 12/21/19 Stop Date: 09/16/20 Status: Ordered ondansetron 4 mg oral tablet 1 tablet, By Mouth, Every 8 hours, PRN NEEDED FOR NAUSEA AND VOMITING, # 9 tablet, 2 Refills, Maintenance, 04/10/20 14:26:00 EST, [facility]/pharmacy #[id number], 185, cm, 03/30/20 14:01:00 EDT, Height Start Date: 04/10/20 Stop Date: 04/25/20 Status: Ordered Suboxone 4 mg-1 mg sublingual film 1 film, Sublingual, Daily, dissolve under the tongue increase in dose [id number] 05/02/2020, # 7 film, 0 Refills, Maintenance, 05/09/20 13:59:00 EST, Film, [facility]/pharmacy #[id number], 1 film Sublingual Daily,x7 days,Instr:dissolve under the tongue; increas... Start Date: 05/09/20 Stop Date: 05/16/20 Status: Ordered Suboxone 8 mg-2 mg sublingual film 1 film, Sublingual, Daily, masspat verified Scavron [id number] dissolve under the tongue fill on/after 05/02/2020, # 7 film, 0 Refills, Maintenance, 05/09/20 13:59:00 EST, Film, [facility]/pharmacy #[id number], 1 film Sublingual Daily,x7 days,Instr:masspat mary... Start Date: 05/09/20 Stop Date: 05/16/20 Status: Ordered Problem List Condition Effective Dates Status Health Status Inform ant Abdominal pain(Confirmed) Active Anxiety(Confirmed) Active Anxiety, generalized(Confirmed) Active Nicotine dependence(Confirmed) Active Opioid dependence(Confirmed) Active Addiction, opium(Confirmed) Active Major depressive disorder, severe(Confirmed) Active Vomiting(Confirmed) Active Social History Social History Type Response Smoking Status Never (less than 100 in lifetime); Tobacco user in household: No entered on: 03/30/20 Sex
--- OUTSIDE RECORDS SUMMARY | 2023-06-20 11:43 | XMS_ITS | Continuity of Care Document ---
Author Name Unknown Organization [facility] Address Unknown Care Team Providers Care Sponsorship Manager Name Role Phone Mykel Marquis MD Primary Care Physician Encounter [facility] [place] Date(s): 02/05/21 - 03/07/21 [facility] Allergies, Adverse Reactions, Alerts Substance Reaction Severity Status Percocet 1 Active 1severe agitation Immunizations Given and Recorded Vaccine Date Status [...] Recorded Meningococcal Conjugate Vaccine 04/30/10 Recorded Medications cloNIDine 0.1 mg oral tablet See Instructions, TAKE 1 TABLET BY MOUTH TWICE DAILY, # 60 tablet, Refills 0, Instructions Replace Required Details, Route to Pharmacy Electronically, [facility][id number], 185, cm, 12/28/20 15:45:00 EDT, Height Start Date: 01/25/21 Status: Ordered cloNIDine 0.1 mg oral tablet 0.1 mg, 1, tablet, By Mouth, 2 times a day, # 60 tablet, Refills 0, Tot. Refills 0, Maintenance, 12/28/20 15:58:00 EDT, Route to Pharmacy Electronically, [facility] #[id number], Partial fill upon patient request if the prescription is for a sched... Start Date: 12/28/20 Stop Date: 01/27/21 Status: Ordered duloxetine 30 mg oral enteric coated capsule See Instructions, TAKE 1 CAPSULE BY MOUTH DAILY, # 30 capsule, 0 Refills, [facility] #[id number], 185, cm, 12/28/20 15:45:00 EDT, Height Start Date: 01/25/21 Status: Ordered duloxetine 30 mg oral enteric coated capsule 1 capsule = 30 mg, By Mouth, Daily, # 30 capsule, 0 Refills, Maintenance, 12/28/20 15:58:00 EDT, Capsule, [facility] #[id number], Partial fill upon patient request if the prescription is for a schedule II opioid drug., 185, cm, 12/28/20 15:45:00... Start Date: 12/28/20 Status: Ordered gabapentin 300 mg oral capsule 1, capsule, By Mouth, 3 times a day, # 270 capsule, Refills 1, Tot. Refills 0, Maintenance, 12/06/20 8:24:00 EDT, Route to Pharmacy Electronically, [id number], 185, cm, 10/04/20 11:41:00 EDT, Height Start Date: 12/06/20 Status: Ordered omeprazole 40 mg oral enteric coated capsule 1 capsule = 40 mg, By Mouth, Daily, # 90 capsule, 2 Refills, Maintenance, 12/21/19 22:04:00 EDT, ECCapsule, [facility]/pharmacy #[id number], 185, cm, 08/01/19 11:16:00 EST, Height Start Date: 12/21/19 Stop Date: 09/16/20 Status: Ordered ondansetron 4 mg oral tablet See Instructions, TAKE 1 TABLET BY MOUTH EVERY 8 HOURS NEEDED FOR NAUSEA AND VOMITING, # 9 tablet, 0 Refills, 07/24/20 14:41:00 EST, [id number], 185, cm, 06/15/20 13:02:00 EST, Height Start Date: 07/24/20 Status: Ordered SEROquel 50 mg oral tablet 2 tablet = 100 mg, By Mouth, 2 times a day, # 120 tablet, 0 Refills, Maintenance, 02/01/21 13:13:00EDT, [facility] #[id number], Partial fill upon patient request if the prescription is for a schedule II opioid drug., 185, cm, 12/28/20 15:45:00 E... Start Date: 02/01/21 Stop Date: 03/03/21 Status: Ordered Problem List Condition Effective Dates [...]
--- OUTSIDE RECORDS SUMMARY | 2023-06-20 11:43 | XMS_ITS | Continuity of Care Document ---
Author Name Unknown Organization [facility] Address [address] [place] [address]- Care Team Providers Care Linen Room Supervisor Name Role Phone Mykel Marquis MD Primary Care Physician [place] [facility] [place] 09/24/20 - 10/24/20 [facility]/[address] [address]- Allergies, Adverse Reactions, Alerts Substance Reaction Severity Status Percocet 5/325 1 Active 1severe agitation Medications cloNIDine 0.1 mg oral tablet 0.1 mg, 1, tablet, By Mouth, 4 times a day, # 120 tablet, Refills 0, Tot. Refills 0, Maintenance, 10/04/20 15:18:00 EDT, Route to Pharmacy Electronically, [facility], Partial fill upon patient request if the prescription is for a schedul... Start Date: 10/04/20 Status: Ordered duloxetine 30 mg oral enteric coated capsule 1 capsule = 30 mg, By Mouth, Daily, # 30 capsule, 0 Refills, Maintenance, 10/04/20 15:18:00 EDT, Capsule, [facility], Partial fill upon patient request if the prescription is for a schedule II opioid drug., 185, cm, 10/04/20 11:41:00 EDT... Start Date: 10/04/20 Status: Ordered gabapentin 300 mg oral capsule 300 mg, 1, capsule, By Mouth, 3 times a day, # 270 capsule, Refills 5, Tot. Refills 5, Maintenance,10/04/20 15:18:00 EDT, Route to Pharmacy Electronically, [facility], 185, cm, 10/04/20 11:41:00 EDT, Height Start Date: 10/04/20 Status: Ordered omeprazole 40 mg oral enteric coated capsule 1 capsule = 40 mg, By Mouth, Daily, # 90 capsule, 2 Refills, Maintenance, 12/21/19 22:04:00 EDT, ECCapsule, [facility]/pharmacy #[id number], 185, cm, 08/01/19 11:16:00 EST, Height Start Date: 12/21/19 Stop Date: 09/16/20 Status: Ordered ondansetron 4 mg oral tablet See Instructions, TAKE 1 TABLET BY MOUTH EVERY 8 HOURS NEEDED FOR NAUSEA AND VOMITING, # 9 tablet, 0 Refills, 07/24/20 14:41:00 EST, [facility]/pharmacy #[id number], 185, cm, 06/15/20 13:02:00 EST, Height Start Date: 07/24/20 Status: Ordered SEROquel 25 mg oral tablet 50 mg, 2, tablet, By Mouth, Every 8 hours, PRN, # 14 tablet, Refills 0, Tot. Refills 0, Maintenance, Agitation, 10/04/20 15:19:00 EDT, Route to Pharmacy Electronically, [facility], Partial fill upon patient request if the prescription is... Start Date: 10/04/20 Status: Ordered Suboxone 4 mg-1 mg sublingual film 3 film, Sublingual, Daily, [id number] Scavron dissolve under the tongue DUE 09/12/2020, # 21 film, 0 Refills, Maintenance, 10/04/20 15:17:00 EDT, Film, [facility], 3 film Sublingual Daily,x7 days,Instr:[id number] Scavron; dissolve under t... Start Date: 10/04/20 Stop Date: 10/11/20 Status: Ordered Suboxone 4 mg-1 mg sublingual film 1 film, Sublingual, 3 times a day, dissolve under the tongue, # 9 film, 0 Refills, Maintenance, 10/04/20 16:01:00 EDT, Film, [facility] 3, Partial fill upon patient request if the prescription is for a schedule II opioid drug. [id number], 1... Start Date: 10/04/20 Status: Ordered thiamine 100 mg oral tablet 100 mg, 1, tablet, By Mouth, Daily, for 30 days, # 30 tablet, Refills 0, Tot. Refills 0, Acute 11/03/20 15:19:00 EDT, 10/04/20 15:19:00 EDT, Route to Pharmacy Electronically, [facility], Partial fill upon patient request if the prescript... Start Date: 10/04/20 Stop Date: 11/03/20 Status: Ordered traZODone 50 mg oral tablet 50 mg, 1, tablet, By Mouth, Daily at bedtime, PRN, # 10 tablet, Refills 0, Tot. Refills 0, Maintenance, Insomnia, 10/04/20 15:19:00 EDT, Route to Pharmacy Electronically, [facility], Partial fill upon patient request if the prescription... Start Date: 10/04/20 Status: Ordered Problem List Condition Effective Dates [...]
--- OUTSIDE RECORDS SUMMARY | 2023-06-20 11:43 | XMS_ITS | Continuity of Care Document ---
Author Name Unknown Organization [facility] Address [address] [place] [address]- Care Team Providers Care Clinical Research Director Name Role Phone Mykel Marquis MD Primary Care Physician [place] [facility] [place] - 04/05/22 [facility]/[place] [address]- [place] Allergies, Adverse Reactions, Alerts No Known Allergies [...] MOUTH DAILY, # 30 capsule, 0 Refills, [id number], 185, cm, 12/28/20 15:45:00 EDT, Height Start [...] 0 Refills, Soft Stop, 08/16/21 12:26:00 EDT, [facility], Partial fill upon patient request if the prescription is for a schedule II opioid drug., 186, cm, 08/16/21 7:29:00 EDT, Height,... Start Date: 08/16/21 Status: Ordered Problem List Condition Confirmation Course Effective Dates Status Health St atus Informant Abdominal pain Confirmed Active Anxiety Confirmed Active Anxiety, generalized Confirmed Active Nicotine dependence Confirmed Active Obese class II Confirmed Active Opioid dependence Confirmed Active Addiction, opium Confirmed Active Major depressive disorder, severe Confirmed Active Vomiting Confirmed Active Social History Social History Type Response Tobacco Use: 4 or less cigar ettes(less than 1/4 pack)/day in last 30 days. Other: Vapes. Tobacco user in household: No. Sex Patient Care team information Personnel Name: Mykel Marquis MD Address: Address: [address] [place] [address]
--- OUTSIDE RECORDS SUMMARY | 2023-06-20 11:43 | XMS_ITS | Continuity of Care Document ---
Author Name Unknown Organization [facility] Address Unknown Care Team Providers Care Learning And Development Director Name Role Phone Mykel Marquis MD Primary Care Physician [place] [facility] [place](s): 08/16/21 - 09/15/21 [facility] Allergies, Adverse Reactions, Alerts No Known Allergies [...] MOUTH DAILY, # 30 capsule, 0 Refills, [facility][id number], 185, cm, 12/28/20 15:45:00 EDT, Height Start [...] 0 Refills, Soft Stop, 08/16/21 12:26:00 EDT, [facility], Partial fill upon patient request if [...]
--- OUTSIDE RECORDS SUMMARY | 2023-06-20 11:43 | XMS_ITS | Continuity of Care Document ---
Author Name Unknown Organization [facility] Address [address] [place] [address]- Care Team Providers Care Wooden Box Maker Name Role Phone Mykel Marquis MD Primary Care Physician En[place] [facility] [place] Date(s): 07/04/20 - 08/03/20 [facility]/[address] [address]- Allergies, Adverse Reactions, Alerts Substance Reaction Severity Status Percocet 5/325 1 Active 1severe agitation Medications clonazePAM 1 mg oral tablet 1 tablet = 1 mg, By Mouth, 2 times a day, [id number] Scarvon Due 08/08/2020, # 14 tablet, 0 Refills, Maintenance, 08/02/20 16:36:00 EST, Tablet, [facility], 185, cm, 06/15/20 13:02:00 EST, Height Start Date: 08/02/20 Stop Date: 08/09/20 Status: Ordered Crutches Crutches, See Instructions, # [...] Maintenance,09/02/19 14:13:00 EDT, Route to Pharmacy Electronically, [facility], 185, cm, 08/01/19 11:16:00 EST, Height Start Date: 09/02/19 Status: Ordered mirtazapine 15 mg oral tablet 1 tablet, By Mouth, Daily at bedtime, # 30 tablet, 5 Refills, Maintenance, 05/16/20 12:07:00 EST, [facility]/pharmacy #[id number], 185, cm, 03/30/20 14:01:00 EDT, Height Start Date: 05/16/20 Status: Ordered omeprazole 40 mg oral enteric coated capsule 1 capsule = 40 mg, By Mouth, Daily, # 90 capsule, 2 Refills, Maintenance, 12/21/19 22:04:00 EDT, ECCapsule, [facility]/pharmacy #[id number], 185, cm, 08/01/19 11:16:00 EST, Height Start Date: 12/21/19 Stop Date: 09/16/20 Status: Ordered ondansetron 4 mg oral tablet See Instructions, TAKE 1 TABLET BY MOUTH EVERY 8 HOURS NEEDED FOR NAUSEA AND VOMITING, # 9 tablet, 0 Refills, 07/24/20 14:41:00 EST, [facility]/pharmacy #[id number], 185, cm, 06/15/20 13:02:00 EST, Height Start Date: 07/24/20 Status: Ordered Suboxone 4 mg-1 mg sublingual film 3 film, Sublingual, Daily, [id number] Scavron dissolve under the tongue DUE 08/08/2020, # 21 film, 0 Refills, Maintenance, 08/02/20 16:36:00 EST, Film, [facility], 3 film SublingualDaily,x7 days,Instr:[id number] Scavron; dissolve u... Start Date: 08/02/20 Stop Date: 08/09/20 Status: Ordered Problem List Condition Effective Dates [...]
--- OUTSIDE RECORDS SUMMARY | 2023-06-20 11:43 | XMS_ITS | Continuity of Care Document ---
Author Name Unknown Organization [facility] Address Unknown Care Team Providers Care Violent Crimes Detective Name Role Phone Mykel Marquis MD Primary Care Physician [place] [facility] [place] 09[place]21 [facility] Attending Physician: AdmtrSavannah Admitting Physician: AdmtrSavannah Referring Physician: Admtr, Ar8 Allergies, Adverse Reactions, Alerts No Known Allergies [...] MOUTH DAILY, # 30 capsule, 0 Refills, [id number], 185, cm, 12/28/20 15:45:00 EDT, Height Start [...] 0 Refills, Soft Stop, 08/16/21 12:26:00 EDT, [facility], Partial fill upon patient request if [...]
--- OUTSIDE RECORDS SUMMARY | 2023-06-20 11:43 | XMS_ITS | Continuity of Care Document ---
Author Name Unknown Organization [facility] Address [address] [place] [address]- Care Team Providers Care Manufacturing Lead Name Role Phone Mykel Marquis MD Primary Care Physician En[place] [facility] [place] 10/13/19 - 12/10/19 [facility]/[address] [address]- [facility] Attending Physician: Mykel Marquis MD Admitting Physician: [...] Maintenance,09/02/19 14:13:00 EDT, Route to Pharmacy Electronically, [facility], 185, cm, 08/01/19 11:16:00 EST, Height Start Date: 09/02/19 Status: Ordered hydrOXYzine hydrochloride 50 mg oral tablet 1 tablet = 50 mg, By Mouth, 2 times a day, # 60 capsule, 2 Refills, Maintenance, 12/05/19 9:36:00 EDT, [facility]/pharmacy #[id number], 185, cm, 08/01/19 11:16:00 EST, Height Start Date: 12/05/19 Status: Ordered omeprazole 40 mg oral enteric coated capsule 1 capsule = 40 mg, By Mouth, Daily, # 90 capsule, 0 Refills, Maintenance, 11/14/19 17:54:00 EDT, [facility], [id number] 185, cm, 08/01/19 11:16:00 EST, Height Start Date: 11/14/19 Status: Ordered ondansetron 4 mg oral tablet 1 tablet, By Mouth, Every 8 hours, PRN NEEDED FOR NAUSEA AND VOMITING, # 10 tablet, 1 Refills, Maintenance, 11/14/19 17:54:00 EDT, [facility]/pharmacy #[id number], 185, cm, 08/01/19 11:16:00 EST, Height Start Date: 11/14/19 Stop Date: 11/24/19 Status: Ordered Remeron 15 mg oral tablet 1 tablet = 15 mg, By Mouth, Daily at bedtime, # 30 tablet, 3 Refills, Maintenance, 08/17/19 12:07:00 EDT, Tablet, [facility], 185, cm, 08/01/19 11:16:00 EST, Height Start Date: 08/17/19 Status: Ordered Suboxone 4 mg-1 mg sublingual film 1 film, Sublingual, Daily, dissolve under the tongue increase in dose, # 28 film, 0 Refills, Maintenance, 12/05/19 16:30:00 EDT, Film, [facility]/pharmacy #[id number], 1 film Sublingual Daily,Instr:dissolve underthe tongue; increase in dose, 185, cm, 08/01/19 11... Start Date: 12/05/19 Status: Ordered Suboxone 8 mg-2 mg sublingual film 1 film, Sublingual, Daily, masspat verified Scavron [id number] dissolve under the tongue fill on/after 12/05/2019, # 28 film, 0 Refills, Maintenance, 12/05/19 16:30:00 EDT, Film, [facility]/pharmacy #0639, 1film Sublingual Daily,x28 days,Instr:masspat v... Start Date: 12/05/19 Stop Date: 01/02/20 Status: Ordered Problem List Condition Effective Dates Status Health Status Inform ant Abdominal pain(Confirmed) Active Anxiety, generalized(Confirmed) Active Nicotine dependence(Confirmed) Active Opioid dependence(Confirmed) Active Addiction, opium(Confirmed) Active Major depressive disorder, severe(Confirmed) Active Vomiting(Confirmed) Active
--- OUTSIDE RECORDS SUMMARY | 2023-06-20 11:43 | XMS_ITS | Continuity of Care Document ---
Author Name Unknown Organization [facility] Address [address] [place] [address]- Care Team Providers Care Generation Technician Name Role Phone Mykel Marquis MD Primary Care Physician Encounter [facility] [place] Date(s): 09/05/20 - 10/12/20 [facility]/[address] [address]- Attending Physician: Mykel Marquis MD Admitting Physician: Mykel Marquis MD Allergies, Adverse Reactions, Alerts Substance Reaction Severity Status Percocet 5/325 1 Active 1severe agitation Medications cloNIDine 0.1 mg oral tablet 0.1 mg, 1, tablet, By Mouth, 4 times a day, # 120 tablet, Refills 0, Tot. Refills 0, Maintenance, 10/04/20 15:18:00 EDT, Route to Pharmacy Electronically, [facility], Partial fill upon patient request if the prescription is for a schedul... Start Date: 10/04/20 Status: Ordered duloxetine 30 mg oral enteric coated capsule 1 capsule = 30 mg, By Mouth, Daily, # 30 capsule, 0 Refills, Maintenance, 10/04/20 15:18:00 EDT, Capsule, [facility], Partial fill upon patient request if the prescription is for a schedule II opioid drug., 185, cm, 10/04/20 11:41:00 EDT... Start Date: 10/04/20 Status: Ordered gabapentin 300 mg oral capsule 300 mg, 1, capsule, By Mouth, 3 times a day, # 270 capsule, Refills 5, Tot. Refills 5, Maintenance,10/04/20 15:18:00 EDT, Route to Pharmacy Electronically, [facility], 185, cm, 10/04/20 11:41:00 EDT, Height Start Date: 10/04/20 Status: Ordered omeprazole 40 mg oral enteric coated capsule 1 capsule = 40 mg, By Mouth, Daily, # 90 capsule, 2 Refills, Maintenance, 12/21/19 22:04:00 EDT, ECCapsule, [facility]/pharmacy #[id number], 185, cm, 08/01/19 11:16:00 EST, Height Start Date: 12/21/19 Stop Date: 09/16/20 Status: Ordered ondansetron 4 mg oral tablet See Instructions, TAKE 1 TABLET BY MOUTH EVERY 8 HOURS NEEDED FOR NAUSEA AND VOMITING, # 9 tablet, 0 Refills, 07/24/20 14:41:00 EST, [facility]/pharmacy #[id number], 185, cm, 06/15/20 13:02:00 EST, Height Start Date: 07/24/20 Status: Ordered SEROquel 25 mg oral tablet 50 mg, 2, tablet, By Mouth, Every 8 hours, PRN, # 14 tablet, Refills 0, Tot. Refills 0, Maintenance, Agitation, 10/04/20 15:19:00 EDT, Route to Pharmacy Electronically, [facility] 3, Partial fill upon patient request if the prescription is... Start Date: 10/04/20 Status: Ordered Suboxone 4 mg-1 mg sublingual film 3 film, Sublingual, Daily, [id number] Scavron dissolve under the tongue DUE 09/12/2020, # 21 film, 0 Refills, Maintenance, 10/04/20 15:17:00 EDT, Film, [facility], 3 film Sublingual Daily,x7 days,Instr:[id number] Scavron; dissolve under t... Start Date: 10/04/20 Stop Date: 10/11/20 Status: Ordered Suboxone 4 mg-1 mg sublingual film 1 film, Sublingual, 3 times a day, dissolve under the tongue, # 9 film, 0 Refills, Maintenance, 10/04/20 16:01:00 EDT, Film, [facility] 3, Partial fill upon patient request if the prescription is for a schedule II opioid drug. [id number], 1... Start Date: 10/04/20 Status: Ordered thiamine 100 mg oral tablet 100 mg, 1, tablet, By Mouth, Daily, for 30 days, # 30 tablet, Refills 0, Tot. Refills 0, Acute 11/03/20 15:19:00 EDT, 10/04/20 15:19:00 EDT, Route to Pharmacy Electronically, [facility], Partial fill upon patient request if the prescript... Start Date: 10/04/20 Stop Date: 11/03/20 Status: Ordered traZODone 50 mg oral tablet 50 mg, 1, tablet, By Mouth, Daily at bedtime, PRN, # 10 tablet, Refills 0, Tot. Refills 0, Maintenance, Insomnia, 10/04/20 15:19:00 EDT, Route to Pharmacy Electronically, [facility], Partial fill upon [...]
--- OUTSIDE RECORDS SUMMARY | 2023-06-20 11:43 | XMS_ITS | Continuity of Care Document ---
Author Name Unknown Organization [facility] Address [address] [place] [address]- Care Team Providers Care Scientific Technical Writer Name Role Phone Mykel Marquis MD Primary Care Physician Encounter [facility] [place] [id number] Date(s): 05/15/23 - 06/14/23 [facility] [address]- Attending Physician: Savannah Jackson Admitting Physician: Savannah Jackson Referring Physician: AdmtrSavannah Allergies, Adverse Reactions, Alerts No Known Allergies [...] MOUTH DAILY, # 30 capsule, 0 Refills, [id number], 185, cm, 12/28/20 15:45:00 EDT, Height Start [...] 0 Refills, Soft Stop, 08/16/21 12:26:00 EDT, [facility] 3, Partial fill upon patient [...] household: No. Sex Patient Care team information Care Team Personnel Name: Tomasa Vanegas RN Position: S RN Member Role: Primary Care Nurse Name: Bhavya Montague Position: S Associate Professional Member Role: Lifetime Consulting Provider Address: Address: [address] [place] [address] Name: Christina Ferreira RN Position: S BUFFY Supv Member Role: Primary Care Nurse Name: Melissa Sotelo RN Position: S SN RN Member Role: Primary Care Nurse Name: Juan C Ann CRNA Position: S SN RN Member Role: Primary Care Nurse Address: Address: [address] [place] [address] Anesthesia Services [address] Name: Iona Mon RN Position: [facility] RN Member Role: Primary Care Nurse Name: Alissa Michaud RN Position: [facility] RN Member Role: Primary Care Nurse Name: Geno Johnson RN Position: [facility] RN Member Role: Primary Care Nurse Name: Ashley Pina RN Position: [facility] RN Member Role: Primary Care Nurse Name: Dinah Gustafson RN Position: [facility] RN Member Role: Primary Care Nurse Name: Mykel Marquis MD Position: [facility] Physician - Primary Care Member Role: PCP Address: Address: [address] [place] [address]- Care Team Related Persons Name: DECLAN CHE Address: home [address] [place] [address] Name: JEFF CHE Address: home [address] [place] [address]
--- OUTSIDE RECORDS SUMMARY | 2023-06-20 11:43 | XMS_ITS | Continuity of Care Document ---
Author Name Unknown Organization [facility] Address [address] [place] [address]- Care Team Providers Care Plunger Shovel Operator Name Role Phone Mykel Marquis MD Primary Care Physician [id number] Date(s[facility] 05/02/20 - 06/29/20 [facility]/[address] [address]- Attending Physician: Mykel Marquis MD Admitting Physician: Mykel Marquis MD Allergies, Adverse Reactions, Alerts Substance Reaction Severity Status Percocet 5/325 1 Active 1severe agitation Medications clonazePAM 1 mg oral tablet 1 tablet = 1 mg, By Mouth, 2 times a day, 06/27/2020, # 14 tablet, 0 Refills, Maintenance, 218:27:00 EST, Tablet, [facility], 185, cm, 06/15/20 13:02:00 EST, Height Start Date: 06/27/20 Stop Date: 07/04/20 Status: Ordered Crutches Crutches, See Instructions, # [...] Maintenance,09/02/19 14:13:00 EDT, Route to Pharmacy Electronically, [facility], 185, cm, 08/01/19 11:16:00 EST, Height Start Date: 09/02/19 Status: Ordered mirtazapine 15 mg oral tablet 1 tablet, By Mouth, Daily at bedtime, # 30 tablet, 5 Refills, Maintenance, 05/16/20 12:07:00 EST, [facility]/pharmacy #[id number], 185, cm, 03/30/20 14:01:00 EDT, Height Start Date: 05/16/20 Status: Ordered omeprazole 40 mg oral enteric coated capsule 1 capsule = 40 mg, By Mouth, Daily, # 90 capsule, 2 Refills, Maintenance, 12/21/19 22:04:00 EDT, ECCapsule, [facility]/pharmacy #[id number], 185, cm, 08/01/19 11:16:00 EST, Height Start Date: 12/21/19 Stop Date: 09/16/20 Status: Ordered ondansetron 4 mg oral tablet 1 tablet, By Mouth, Every 8 hours, PRN NEEDED FOR NAUSEA AND VOMITING, # 9 tablet, 2 Refills, Maintenance, 05/30/20 15:37:00 EST, [facility]/pharmacy #[id number], 185, cm, 03/30/20 14:01:00 EDT, Height Start Date: 05/30/20 Stop Date: 06/14/20 Status: Ordered ondansetron 4 mg oral tablet See Instructions, TAKE 1 TABLET BY MOUTH EVERY 8 HOURS NEEDED FOR NAUSEA AND VOMITING F0R 5 DAYS, # 9 tablet, 0 Refills, 06/15/20 14:53:00 EST, [facility]/pharmacy #[id number], 185, cm, 06/15/20 13:02:00 EST, Height Start Date: 06/15/20 Status: Ordered Suboxone 4 mg-1 mg sublingual film 1 film, Sublingual, Daily, [id number] Scavron dissolve under the tongue DUE 07/04/2020, # 7 film, 0 Refills, Maintenance, 06/28/20 10:37:00 EST, Film, [facility], 1 film Sublingual Daily,x7 days,Instr:[id number] Scavron; dissolve und... Start Date: 06/28/20 Stop Date: 07/05/20 Status: Ordered Suboxone 8 mg-2 mg sublingual film 1 film, Sublingual, Daily, masspat verified Scavron [id number] dissolve under the tongue fill on/after 06/27/2020, # 7 film, 0 Refills, Maintenance, 06/27/20 8:27:00 EST, Film, [facility], 1 film Sublingual Daily,x7 days,Instr:... Start Date: 06/27/20 Stop Date: 07/04/20 Status: Ordered Problem List Condition Effective Dates [...]
--- OUTSIDE RECORDS SUMMARY | 2023-06-20 11:43 | XMS_ITS | Continuity of Care Document ---
Author Name Unknown Organization [facility] Address [address] [place] [address]- Care Team Providers Care Commercial Energy Rater Name Role Phone Mykel Marquis MD [id number] - [facility]16[facility]/[address] [address]- Attending Physician: Mykel Marquis MD Admitting Physician: Mykel Marquis MD Allergies, Adverse Reactions, Alerts Substance Reaction Severity Status Percocet 5/325 1 Active 1severe agitation Medications clonazePAM 1 mg oral tablet 1 tablet = 1 mg, By Mouth, 2 times a day, 06/06/2020, # 14 tablet, 0 Refills, Maintenance, 219:25:00 EST, Tablet, [facility], 185, cm, 03/30/20 14:01:00 EDT, Height Start Date: 06/13/20 Stop Date: 06/20/20 Status: Ordered Crutches Crutches, See Instructions, # [...] 14:13:00 EDT, Route to Pharmacy Electronically, [facility], 185, cm, 08/01/19 11:16:00 EST, Height Start Date: 09/02/19 Status: Ordered mirtazapine 15 mg oral tablet 1 tablet, By Mouth, Daily at bedtime, # 30 tablet, 5 Refills, Maintenance, 05/16/20 12:07:00 EST, [facility]/pharmacy #[id number], 185, cm, 03/30/20 14:01:00 EDT, Height Start Date: 05/16/20 Status: Ordered omeprazole 40 mg oral enteric coated capsule 1 capsule = 40 mg, By Mouth, Daily, # 90 capsule, 2 Refills, Maintenance, 12/21/19 22:04:00 EDT, ECCapsule, [facility]/pharmacy #[id number], 185, cm, 08/01/19 11:16:00 EST, Height Start Date: 12/21/19 Stop Date: 09/16/20 Status: Ordered ondansetron 4 mg oral tablet 1 tablet, By Mouth, Every 8 hours, PRN NEEDED FOR NAUSEA AND VOMITING, # 9 tablet, 2 Refills, Maintenance, 05/30/20 15:37:00 EST, [facility]/pharmacy #[id number], 185, cm, 03/30/20 14:01:00 EDT, Height Start Date: 05/30/20 Stop Date: 06/14/20 Status: Ordered ondansetron 4 mg oral tablet See Instructions, TAKE 1 TABLET BY MOUTH EVERY 8 HOURS NEEDED FOR NAUSEA AND VOMITING F0R 5 DAYS, # 9 tablet, 0 Refills, 06/15/20 14:53:00 EST, [facility]/pharmacy #[id number], 185, cm, 06/15/20 13:02:00 EST, Height Start Date: 06/15/20 Status: Ordered Suboxone 4 mg-1 mg sublingual film 1 film, Sublingual, Daily, dissolve under the tongue increase in dose [id number] 06/06/2020, # 7 film, 0 Refills, Maintenance, 06/13/20 9:25:00 EST, Film, [facility], 1 film Sublingual Daily,x7 days,Instr:dissolve under the tong... Start Date: 06/13/20 Stop Date: 06/20/20 Status: Ordered Suboxone 8 mg-2 mg sublingual film 1 film, Sublingual, Daily, masspat verified Scavron [id number] dissolve under the tongue fill on/after 06/13/2020, # 7 film, 0 Refills, Maintenance, 06/13/20 9:25:00 EST, Film, [facility] [place], 1 film Sublingual Daily,x7 days,Instr:... Start Date: 06/13/20 Stop Date: 06/20/20 Status: Ordered Problem List Condition Effective Dates [...]
--- OUTSIDE RECORDS SUMMARY | 2023-06-20 11:43 | XMS_ITS | Continuity of Care Document ---
Author Name Unknown Organization [facility] Address [address] [place] [address]- Care Team Providers Care Catering Attendant Name Role Phone Mykel Marquis MD Primary Care Physician Encounter [facility] Date(s): 06/12/20 - 07/12/20 [facility] [address] [address]- Allergies, Adverse Reactions, Alerts Substance Reaction Severity Status Percocet 5/325 1 Active 1severe agitation Medications clonazePAM 1 mg oral tablet 1 tablet = 1 mg, By Mouth, 2 times a day, [id number] Scarvon Due 07/14/2020, # 8 tablet, 0 Refills, Maintenance, 07/12/20 15:38:00 EST, Tablet, [id number], 185, cm, 06/15/20 13:02:00 EST, Height Start Date: 07/12/20 Stop Date: 07/16/20 Status: Ordered Crutches Crutches, See Instructions, # [...] Maintenance,09/02/19 14:13:00 EDT, Route to Pharmacy Electronically, [facility], 185, cm, 08/01/19 11:16:00 EST, Height Start Date: 09/02/19 Status: Ordered mirtazapine 15 mg oral tablet 1 tablet, By Mouth, Daily at bedtime, # 30 tablet, 5 Refills, Maintenance, 05/16/20 12:07:00 EST, [facility]pharmacy [facility][id number], 185, cm, 03/30/20 14:01:00 EDT, Height Start Date: 05/16/20 Status: Ordered omeprazole 40 mg oral enteric coated capsule 1 capsule = 40 mg, By Mouth, Daily, # 90 capsule, 2 Refills, Maintenance, 12/21/19 22:04:00 EDT, ECCapsule, [facility]/pharmacy #[id number], 185, cm, 08/01/19 11:16:00 EST, Height Start Date: 12/21/19 Stop Date: 09/16/20 Status: Ordered ondansetron 4 mg oral tablet 1 tablet, By Mouth, Every 8 hours, PRN NEEDED FOR NAUSEA AND VOMITING, # 9 tablet, 2 Refills, Maintenance, 05/30/20 15:37:00 EST, [facility]/pharmacy #1, 185, cm, 03/30/20 14:01:00 EDT, Height Start Date: 05/30/20 Stop Date: 06/14/20 Status: Ordered ondansetron 4 mg oral tablet See Instructions, TAKE 1 TABLET BY MOUTH EVERY 8 HOURS NEEDED FOR NAUSEA AND VOMITING F0R 5 DAYS, # 9 tablet, 0 Refills, 06/15/20 14:53:00 EST, [facility]/pharmacy #[id number], 185, cm, 06/15/20 13:02:00 EST, Height Start Date: 06/15/20 Status: Ordered Suboxone 4 mg-1 mg sublingual film 3 film, Sublingual, Daily, [id number] Scavron dissolve under the tongue DUE 07/11/2020, # 21 film, 0 Refills, Maintenance, 07/11/20 15:31:00 EST, Film, [facility]/pharmacy #[id number], 3 film Sublingual Daily,x7 days,Instr:[id number] Scavron; dissolve under the ton... Start Date: 07/11/20 Stop Date: 07/18/20 Status: Ordered Problem List Condition Effective Dates [...]
--- OUTSIDE RECORDS SUMMARY | 2023-06-20 11:43 | XMS_ITS | Continuity of Care Document ---
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 Refills 0, Maintenance, 10/04/20 15:18:00 EDT, Route to Pharmacy Electronically, [facility], Partial fill upon patient request if the prescription is for a schedul... Start Date: 10/04/20 Status: Ordered duloxetine 30 mg oral enteric coated capsule 1 capsule = 30 mg, By Mouth, Daily, # 30 capsule, 0 Refills, Maintenance, 10/04/20 15:18:00 EDT, Capsule, [facility], Partial fill upon patient request if the prescription is for a schedule II opioid drug., 185, cm, 10/04/20 11:41:00 EDT... Start Date: 10/04/20 Status: Ordered gabapentin 300 mg oral capsule 300 mg, Capsule, By Mouth, 10/04/20 15:00:00 EDT Start Date: 10/04/20 Stop Date: 10/04/20 Status: Completed gabapentin 300 mg oral capsule 300 mg, 1, capsule, By Mouth, 3 times a day, # 270 capsule, Refills 5, Tot. Refills 5, Maintenance,10/04/20 15:18:00 EDT, Route to Pharmacy Electronically, [facility], 185, cm, 10/04/20 11:41:00 EDT, Height Start Date: 10/04/20 Status: Ordered LORazepam 2 mg oral tablet 1 tablet = 2 mg, By Mouth, 4 times a day, for 5 days, Lorazepam taper: 10/02: 2 mg p.o. 4 times daily(8 mg/day) for 1 week 10/09: 2 mg @ QAM / 1 mg @ 1pm / 2 mg @ 5pm / 2 mg QHS (7 mg/day) 10/16: 2 mg p.o. 3 times daily (6 mg/day) 10/23: Reduce do... Start Date: 10/04/20 Stop Date: 10/09/20 Status: Ordered omeprazole 40 mg oral enteric coated capsule 1 capsule = 40 mg, By Mouth, Daily, # 90 capsule, 2 Refills, Maintenance, 12/21/19 22:04:00 EDT, ECCapsule, [facility]/pharmacy #[id number], 185, cm, 08/01/19 11:16:00 EST, Height Start Date: 12/21/19 Stop Date: 09/16/20 Status: Ordered ondansetron 4 mg oral tablet See Instructions, TAKE 1 TABLET BY MOUTH EVERY 8 HOURS NEEDED FOR NAUSEA AND VOMITING, # 9 tablet, 0 Refills, 07/24/20 14:41:00 EST, [facility]/pharmacy #[id number], 185, cm, 06/15/20 13:02:00 EST, Height Start Date: 07/24/20 Status: Ordered SEROquel 25 mg oral tablet 50 mg, 2, tablet, By Mouth, Every 8 hours, PRN, # 14 tablet, Refills 0, Tot. Refills 0, Maintenance, Agitation, 10/04/20 15:19:00 EDT, Route to Pharmacy Electronically, [facility], Partial fill upon patient request if the prescription is... Start Date: 10/04/20 Status: Ordered Suboxone 4 mg-1 mg sublingual film 3 film, Sublingual, Daily, [id number] Scavron dissolve under the tongue DUE 09/12/2020, # 21 film, 0 Refills, Maintenance, 10/04/20 15:17:00 EDT, Film, [facility], 3 film Sublingual Daily,x7 days,Instr:[id number] Scavron; dissolve under t... Start Date: 10/04/20 Stop Date: 10/11/20 Status: Ordered Suboxone 4 mg-1 mg sublingual film 1 film, Sublingual, 3 times a day, dissolve under the tongue, # 9 film, 0 Refills, Maintenance, 10/04/20 16:01:00 EDT, Film, [facility], Partial fill upon patient request if the prescription is for a schedule II opioid drug. [id number], 1... Start Date: 10/04/20 Status: Ordered thiamine 100 mg oral tablet 100 mg, 1, tablet, By Mouth, Daily, for 30 days, # 30 tablet, Refills 0, Tot. Refills 0, Acute 11/03/20 15:19:00 EDT, 10/04/20 15:19:00 EDT, Route to Pharmacy Electronically, [facility], Partial fill upon patient request if the prescript... Start Date: 10/04/20 Stop Date: 11/03/20 Status: Ordered traZODone 50 mg oral tablet 50 mg, 1, tablet, By Mouth, Daily at bedtime, PRN, # 10 tablet, Refills 0, Tot. Refills 0, Maintenance, Insomnia, 10/04/20 15:19:00 EDT, Route to Pharmacy Electronically, [facility], Partial fill upon patient request if the prescription... Start Date: 10/04/20 Status: Ordered Problem List Condition Effective Dates Status Health Status Inform ant Abdominal pain(Confirmed) Active Anxiety(Confirmed) Active Anxiety, generalized(Confirmed) Active Nicotine dependence(Confirmed) Active Opioid dependence(Confirmed) Active Addiction, opium(Confirmed) Active Major depressive disorder, severe(Confirmed) Active Vomiting(Confirmed) Active Results Orders for Microbiology Reports Name Date AFB Culture w/ AFB Smear, Nonrespiratory 09/24/20 CSF Culture w/ Gram Smear 09/24/20 Fungal Culture, Nonrespiratory 09/24/20 Blood Culture 09/22/20 Blood Culture #2 09/22/20 Blood Culture 09/22/20 Microbiology Reports TEST:Spinal Fluid Culture STATUS:Auth (Verified) BODY SITE: SOURCE:CEREBR COLLECTED DATE/TIME:09/24/20 2:10 PM Spinal Fluid Culture SPECIMEN DESCRIPTION : CEREBROSPINAL FLUID SPECIAL REQUESTS : NONE GRAM STAIN : NO CELLS OR ORGANISMS SEEN CULTURE : NO GROWTH 3 DAYS REPORT STATUS : FINAL 09/27/2020 TEST:Fungal Culture, Non-Respiratory STATUS:Unauthenticated BODY SITE: SOURCE:CEREBR COLLECTED DATE/TIME:09/24/20 2:10 PM Fungal Culture, Non-Respiratory SPECIMEN DESCRIPTION : CEREBROSPINAL FLUID LUMBAR SPINE SPECIAL REQUESTS : NONE DIRECT EXAM : NO FUNGAL ELEMENTS OBSERVED CULTURE : NO FUNGI ISOLATED AFTER 10 DAYS REPORT STATUS : PRELIMINARY REPORT TEST:AFB Culture w/AFB Smear, Non-Respiratory STATUS:Unauthenticated BODY SITE: SOURCE:CEREBR COLLECTED DATE/TIME:09/24/20 2:10 PM AFB Culture w/AFB Smear, Non-Respiratory SPECIMEN DESCRIPTION : CEREBROSPINAL FLUID LUMBAR SPINE SPECIAL REQUESTS : NONE DIRECT EXAM : NO ACID FAST BACILLI SEEN ON DIRECT SMEAR, TEST PERFORMED AT [facility] No acid fast bacilli seen on concentrated smear. Per [facility] protocol, this specimen was concentrated prior to smear preparation. Testing performed by [facility], [address] [place] [id number]. CULTURE : SPECIMEN SENT TO [facility], [place], [place] REPORT STATUS : PRELIMINARY REPORT TEST:Blood Culture STATUS:Auth (Verified) BODY SITE: SOURCE:Blood COLLECTED DATE/TIME:09/23/20 12:21 AM Blood Culture SPECIMEN DESCRIPTION : BLOOD R ARM SPECIAL REQUESTS : NONE CULTURE : NO GROWTH 5 DAYS. REPORT STATUS : FINAL 09/28/2020 TEST:Blood Culture, Second Order STATUS:Auth (Verified) BODY SITE: SOURCE:Blood COLLECTED DATE/TIME:09/23/20 12:21 AM Blood Culture, Second Order SPECIMEN DESCRIPTION : BLOOD L ARM SPECIAL REQUESTS : NONE CULTURE : NO GROWTH 5 DAYS. REPORT STATUS : FINAL 09/28/2020 TEST:Blood Culture STATUS:Auth (Verified) BODY SITE: SOURCE:Blood COLLECTED DATE/TIME:09/22/20 6:23 PM Blood Culture SPECIMEN DESCRIPTION : BLOOD NONE SPECIAL REQUESTS : NONE CULTURE : NO GROWTH 5 DAYS. REPORT STATUS : FINAL 09/27/2020 Vital Signs Most recent to oldest [Reference Range]: 1 2 3 Height 185 cm (10/04/20 11:41 AM) 185 cm (10/04/20 8:14 AM) 185 cm (10/04/20 12:10 AM) Weight 71.8 kg (10/01/20 3:05 PM) Oxygen Saturation [94-100 %] 100 % (10/04/20 11:41 AM) 100 % (10/04/20 8:14 AM) 100 % (10/04/20 12:10 AM) Pulse Rate [55-90 bpm] 93 bpm *H* (10/04/20 11:41 AM) 92 bpm *H* (10/04/20 8:14 AM) 80 bpm (10/04/20 12:10 AM) Body Mass Index [18.5-24.99] 20.98 (10/01/20 3:05 PM) Blood Pressure [90-138/55-84 mm Hg] 112/77mm Hg (10/04/20 11:41 AM) 96/48mm Hg (10/04/20 8:14 AM) 128/78mm Hg (10/04/20 12:10 AM) Respiratory Rate [16-30 br/min] 18 br/min (10/04/20 5:05 PM) 16 br/min (10/04/20 4:05 PM) 18 br/min (10/04/20 11:41 AM) Temperature [96.8-100.4 DegF] 98.2 DegF (10/04/20 11:41 AM) 97.5 DegF (10/04/20 8:14 AM) 97.8 DegF (10/04/20 12:10 AM) Liters per Minute 0 L/min (10/02/20 3:43 PM) 0 L/min (10/01/20 3:46 PM) 0 L/min (10/01/20 3:44 PM) Mode of Delivery (Oxygen) Room air (10/04/20 11:41 AM) Room air (10/04/20 8:14 AM) Room air (10/04/20 12:10 AM) Blood pressure sites Arm, right (10/04/20 11:41 AM) Arm, left (10/04/20 8:14 AM) Arm, left (10/04/20 12:10 AM) Temperature Route Oral (10/04/20 11:41 AM) Oral (10/04/20 8:14 AM) Temporal (10/04/20 12:10 AM) Weight Obtained Via Bed scale (10/01/20 3:05 PM) Social History Social History Type Response Smoking Status Never (less than 100 in lifetime); Tobacco user in household: No entered on: 03/30/20 Sex
--- OUTSIDE RECORDS SUMMARY | 2023-06-20 11:43 | XMS_ITS | Continuity of Care Document ---
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 Name Role Phone Mykel Marquis MD [id number] - 06[facility]14/23 [facility] [address]- Attending Physician: Mykel Marquis MD Admitting Physician: Mykel Marquis MD Referring Physician: Mykel Marquis MD Allergies, Adverse Reactions, Alerts No Known [...] MOUTH DAILY, # 30 capsule, 0 Refills, [id number], 185, cm, 12/28/20 15:45:00 EDT, Height Start [...] 0 Refills, Soft Stop, 08/16/21 12:26:00 EDT, [facility], Partial fill upon patient request [...] Member Role: Lifetime Consulting Provider Address: Address: [address] [place] [address] Name: Christina Ferreira RN Position: [facility] Supv Member Role: Primary Care Nurse Name: Melissa Sotelo RN Position: [facility] RN Member Role: Primary Care Nurse Name: Juan C Ann CRNA Position: S SN RN Member Role: Primary Care Nurse Address: Address: [address] [place] [address] Anesthesia Services [address] Name: Iona Mon RN Position: [facility] RN Member Role: Primary Care Nurse Name: Alissa Michaud RN Position: [facility] RN Member Role: Primary Care Nurse Name: Geno Johnson RN Position: [facility] RN Member Role: Primary Care Nurse Name: Ashley Pina RN Position: [facility] RN Member Role: Primary Care Nurse Name: Dinah Gustafson RN Position: [facility] RN Member Role: Primary Care Nurse Name: Mykel Marquis MD Position: [facility] Physician - Primary Care Member Role: PCP Address: Address: [address] [place] [address]- Care Team Related Persons Name: DECLAN CHE Address: home [address] [place] [address] Name: JEFF CHE Address: home [address] [place] [address]
--- OUTSIDE RECORDS SUMMARY | 2023-06-20 11:43 | XMS_ITS | Continuity of Care Document ---
Author Name Unknown Organization [facility] Address [address] [place] [address]- Care Team Providers Care Lead Php Developer Name Role Phone Mykel Marquis MD Primary Care Physician Encounter [facility] Date(s): 10/19/20 - 11/18/20 [facility]/[address] [address]- Allergies, Adverse Reactions, Alerts Substance Reaction Severity Status Percocet 5/325 1 Active 1severe agitation Medications cloNIDine 0.1 mg oral tablet 0.1 mg, 1, tablet, By Mouth, 4 times a day, # 120 tablet, Refills 0, Tot. Refills 0, Maintenance, 10/04/20 15:18:00 EDT, Route to Pharmacy Electronically, [facility], Partial fill upon patient request if the prescription is for a schedul... Start Date: 10/04/20 Status: Ordered duloxetine 30 mg oral enteric coated capsule 1 capsule = 30 mg, By Mouth, Daily, # 30 capsule, 0 Refills, Maintenance, 10/04/20 15:18:00 EDT, Capsule, [facility], Partial fill upon patient request if the prescription is for a schedule II opioid drug., 185, cm, 10/04/20 11:41:00 EDT... Start Date: 10/04/20 Status: Ordered gabapentin 300 mg oral capsule 300 mg, 1, capsule, By Mouth, 3 times a day, # 270 capsule, Refills 5, Tot. Refills 5, Maintenance,10/04/20 15:18:00 EDT, Route to Pharmacy Electronically, [facility], 185, cm, 10/04/20 11:41:00 EDT, Height Start Date: 10/04/20 Status: Ordered omeprazole 40 mg oral enteric coated capsule 1 capsule = 40 mg, By Mouth, Daily, # 90 capsule, 2 Refills, Maintenance, 12/21/19 22:04:00 EDT, ECCapsule, [facility]/pharmacy #[id number], 185, cm, 08/01/19 11:16:00 EST, Height Start Date: 12/21/19 Stop Date: 09/16/20 Status: Ordered ondansetron 4 mg oral tablet See Instructions, TAKE 1 TABLET BY MOUTH EVERY 8 HOURS NEEDED FOR NAUSEA AND VOMITING, # 9 tablet, 0 Refills, 07/24/20 14:41:00 EST, [facility]/pharmacy #[id number], 185, cm, 06/15/20 13:02:00 EST, Height Start Date: 07/24/20 Status: Ordered SEROquel 25 mg oral tablet 50 mg, 2, tablet, By Mouth, Every 8 hours, PRN, # 14 tablet, Refills 0, Tot. Refills 0, Maintenance, Agitation, 10/04/20 15:19:00 EDT, Route to Pharmacy Electronically, [facility], Partial fill upon patient request if the prescription is... Start Date: 10/04/20 Status: Ordered Suboxone 4 mg-1 mg sublingual film 3 film, Sublingual, Daily, [id number] Scavron dissolve under the tongue DUE 09/12/2020, # 21 film, 0 Refills, Maintenance, 10/04/20 15:17:00 EDT, Film, [facility], 3 film Sublingual Daily,x7 days,Instr:[id number] Scavron; dissolve under t... Start Date: 10/04/20 Stop Date: 10/11/20 Status: Ordered Suboxone 4 mg-1 mg sublingual film 1 film, Sublingual, 3 times a day, dissolve under the tongue, # 9 film, 0 Refills, Maintenance, 10/04/20 16:01:00 EDT, Film, [facility], Partial fill upon patient request if the prescription is for a schedule II opioid drug. [id number], 1... Start Date: 10/04/20 Status: Ordered traZODone 50 mg oral tablet 50 mg, 1, tablet, By Mouth, Daily at bedtime, PRN, # 10 tablet, Refills 0, Tot. Refills 0, Maintenance, Insomnia, 10/04/20 15:19:00 EDT, Route to Pharmacy Electronically, [facility], Partial fill upon patient [...]
--- OUTSIDE RECORDS SUMMARY | 2023-06-20 11:43 | XMS_ITS | Continuity of Care Document ---
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 Refills 0, Maintenance, 10/04/20 15:18:00 EDT, Route to Pharmacy Electronically, [facility], Partial fill upon patient request if the prescription is for a schedul... Start Date: 10/04/20 Status: Ordered duloxetine 30 mg oral enteric coated capsule 1 capsule = 30 mg, By Mouth, Daily, # 30 capsule, 0 Refills, Maintenance, 10/04/20 15:18:00 EDT, Capsule, [facility], Partial fill upon patient request if the prescription is for a schedule II opioid drug., 185, cm, 10/04/20 11:41:00 EDT... Start Date: 10/04/20 Status: Ordered gabapentin 300 mg oral capsule 300 mg, 1, capsule, By Mouth, 3 times a day, # 270 capsule, Refills 5, Tot. Refills 5, Maintenance,10/04/20 15:18:00 EDT, Route to Pharmacy Electronically, [facility], 185, cm, 10/04/20 11:41:00 EDT, Height Start Date: 10/04/20 Status: Ordered omeprazole 40 mg oral enteric coated capsule 1 capsule = 40 mg, By Mouth, Daily, # 90 capsule, 2 Refills, Maintenance, 12/21/19 22:04:00 EDT, ECCapsule, [facility]/pharmacy #[id number], 185, cm, 08/01/19 11:16:00 EST, Height Start Date: 12/21/19 Stop Date: 09/16/20 Status: Ordered ondansetron 4 mg oral tablet See Instructions, TAKE 1 TABLET BY MOUTH EVERY 8 HOURS NEEDED FOR NAUSEA AND VOMITING, # 9 tablet, 0 Refills, 07/24/20 14:41:00 EST, [facility]/pharmacy #[id number], 185, cm, 06/15/20 13:02:00 EST, Height Start Date: 07/24/20 Status: Ordered SEROquel 25 mg oral tablet 50 mg, 2, tablet, By Mouth, Every 8 hours, PRN, # 14 tablet, Refills 0, Tot. Refills 0, Maintenance, Agitation, 10/04/20 15:19:00 EDT, Route to Pharmacy Electronically, [facility], Partial fill upon patient request if the prescription is... Start Date: 10/04/20 Status: Ordered Suboxone 4 mg-1 mg sublingual film 3 film, Sublingual, Daily, [id number] Scavron dissolve under the tongue DUE 09/12/2020, # 21 film, 0 Refills, Maintenance, 10/04/20 15:17:00 EDT, Film, [facility], 3 film Sublingual Daily,x7 days,Instr:[id number] Scavron; dissolve under t... Start Date: 10/04/20 Stop Date: 10/11/20 Status: Ordered Suboxone 4 mg-1 mg sublingual film 1 film, Sublingual, 3 times a day, dissolve under the tongue, # 9 film, 0 Refills, Maintenance, 10/04/20 16:01:00 EDT, Film, [facility], Partial fill upon patient request if the prescription is for a schedule II opioid drug. [id number], 1... Start Date: 10/04/20 Status: Ordered traZODone 50 mg oral tablet 50 mg, 1, tablet, By Mouth, Daily at bedtime, PRN, # 10 tablet, Refills 0, Tot. Refills 0, Maintenance, Insomnia, 10/04/20 15:19:00 EDT, Route to Pharmacy Electronically, [facility], Partial fill upon patient [...]
--- OUTSIDE RECORDS SUMMARY | 2023-06-20 11:43 | XMS_ITS | Continuity of Care Document ---
Author Name Unknown Organization [facility] Address [address] [place] [id number]- Care Team Providers Care Case Mgr Name Role Phone Mykel Marquis MD Primary Care Physician Encounter [facility] [place] Date(s): 12/05/19 - 01/04/20 [facility] [address] [address]- [facility] Allergies, Adverse Reactions, Alerts Substance Reaction Severity [...] EDT, Route to Pharmacy Electronically, [facility], 185, cm, 08/01/19 11:16:00 EST, Height Start Date: 09/02/19 Status: Ordered hydrOXYzine hydrochloride 50 mg oral tablet 1 tablet = 50 mg, By Mouth, 2 times a day, # 60 capsule, 2 Refills, Maintenance, 12/05/19 9:36:00 EDT, [facility]/pharmacy #[id number], 185, cm, 08/01/19 11:16:00 EST, Height Start Date: 12/05/19 Status: Ordered omeprazole 40 mg oral enteric coated capsule 1 capsule = 40 mg, By Mouth, Daily, # 90 capsule, 2 Refills, Maintenance, 12/21/19 22:04:00 EDT, [id number] 185, cm, 08/01/19 11:16:00 EST, Height Start Date: 12/21/19 Stop Date: 09/16/20 Status: Ordered ondansetron 4 mg oral tablet 1 tablet, By Mouth, Every 8 hours, PRN NEEDED FOR NAUSEA AND VOMITING, # 10 tablet, 1 Refills, Maintenance, 12/28/19 16:06:00 EDT, [facility]/pharmacy #[id number], 185, cm, 08/01/19 11:16:00 EST, Height Start Date: 12/28/19 Stop Date: 01/07/20 Status: Ordered Remeron 15 mg oral tablet 1 tablet = 15 mg, By Mouth, Daily at bedtime, # 30 tablet, 3 Refills, Maintenance, 08/17/19 12:07:00 EDT, Tablet, [facility], 185, cm, 08/01/19 11:16:00 EST, Height Start Date: 08/17/19 Status: Ordered Suboxone 4 mg-1 mg sublingual film 1 film, Sublingual, Daily, dissolve under the tongue increase in dose [id number] 01/02/2020, # 28 film, 0 Refills, Maintenance, 12/29/19 15:36:00 EDT, Film, [facility]/pharmacy #1003, 1 film Sublingual Daily,Instr:dissolve under the tongue; increase in do... Start Date: 12/29/19 Status: Ordered Suboxone 8 mg-2 mg sublingual film 1 film, Sublingual, Daily, masspat verified Scavron [id number] dissolve under the tongue fill on/after 01/02/2020, # 28 film, 0 Refills, Maintenance, 12/29/19 15:36:00 EDT, Film, [facility]/pharmacy #1003, 1film Sublingual Daily,x28 days,Instr:masspat v... Start Date: 12/29/19 Stop Date: 01/26/20 Status: Ordered Problem List Condition Effective Dates Status Health Status Inform ant Abdominal pain(Confirmed) Active Anxiety, generalized(Confirmed) Active Nicotine dependence(Confirmed) Active Opioid dependence(Confirmed) Active Addiction, opium(Confirmed) Active Major depressive disorder, severe(Confirmed) Active Vomiting(Confirmed) Active
--- OUTSIDE RECORDS SUMMARY | 2023-06-20 11:43 | XMS_ITS | Continuity of Care Document ---
Author Name Unknown Organization [facility] Address [address] [place] [address]- Care Team Providers Care Health Promotion Educator Name Role Phone Mykel aMrquis MD Primary Care Physician Encounter [facility] [place] Date(s): 04/10/20 - 05/10/20 [facility]/[address] [address]- Allergies, Adverse Reactions, Alerts Substance Reaction Severity Status Percocet 5/325 1 Active 1severe agitation Medications clonazePAM 1 mg oral tablet 1 tablet = 1 mg, By Mouth, 2 times a day, # 14 tablet, 0 Refills, Maintenance, 05/09/20 13:59:00 EST, Tablet, [facility]/pharmacy #[id number], 185, cm, 03/30/20 14:01:00 [...] Maintenance,09/02/19 14:13:00 EDT, Route to Pharmacy Electronically, [facility], 185, cm, 08/01/19 11:16:00 EST, Height Start Date: 09/02/19 Status: Ordered mirtazapine 15 mg oral tablet 1 tablet, By Mouth, Daily at bedtime, # 30 tablet, 5 Refills, Maintenance, 03/23/20 14:21:00 EDT, [id number], 185, cm, 08/01/19 11:16:00 EST, Height Start Date: 03/23/20 Status: Ordered omeprazole 40 mg oral enteric coated capsule 1 capsule = 40 mg, By Mouth, Daily, # 90 capsule, 2 Refills, Maintenance, 12/21/19 22:04:00 EDT, ECCapsule, [facility]/pharmacy #[id number], 185, cm, 08/01/19 11:16:00 EST, Height Start Date: 12/21/19 Stop Date: 09/16/20 Status: Ordered ondansetron 4 mg oral tablet 1 tablet, By Mouth, Every 8 hours, PRN NEEDED FOR NAUSEA AND VOMITING, # 9 tablet, 2 Refills, Maintenance, 04/10/20 14:26:00 EST, [facility]/pharmacy #[id number], 185, cm, 03/30/20 14:01:00 EDT, Height Start Date: 04/10/20 Stop Date: 04/25/20 Status: Ordered Suboxone 4 mg-1 mg sublingual film 1 film, Sublingual, Daily, dissolve under the tongue increase in dose [id number] 05/02/2020, # 7 film, 0 Refills, Maintenance, 05/09/20 13:59:00 EST, Film, [facility]/pharmacy #[id number], 1 film Sublingual Daily,x7 days,Instr:dissolve under the tongue; increas... Start Date: 05/09/20 Stop Date: 05/16/20 Status: Ordered Suboxone 8 mg-2 mg sublingual film 1 film, Sublingual, Daily, masspat verified Scavron [id number] dissolve under the tongue fill on/after 05/02/2020, # 7 film, 0 Refills, Maintenance, 05/09/20 13:59:00 EST, Film, [facility]/pharmacy #[id number], 1 film Sublingual Daily,x7 [...]
--- OUTSIDE RECORDS SUMMARY | 2023-06-20 11:43 | XMS_ITS | Continuity of Care Document ---
Author Name Unknown Organization [facility] Address [address] [place] [address]- Care Team Providers Care Section Housekeeper Name Role Phone Mykel Marquis MD Primary Care Physician Encounter [facility] [place] Date(s): 09/21/19 - 09/28/19 [facility]/[address] [address]- [facility] Attending Physician: Pippa WATER RESOURCE AGENTLaurel Allergies, Adverse Reactions, Alerts Substance Reaction Severity [...] Maintenance,09/02/19 14:13:00 EDT, Route to Pharmacy Electronically, [facility], 185, cm, 08/01/19 11:16:00 EST, Height Start Date: 09/02/19 Status: Ordered hydrOXYzine hydrochloride 50 mg oral tablet 1 tablet = 50 mg, By Mouth, 2 times a day, # 60 capsule, 2 Refills, Acute 10/01/20 13:47:00 EDT, 09/02/19 14:13:00 EDT, [facility], 185, cm, 08/01/19 11:16:00 EST, Height Start Date: 09/02/19 Stop Date: 10/01/20 Status: Ordered omeprazole 20 mg oral delayed release tablet 1 tablet = 20 mg, By Mouth, Daily, # 30 tablet, 1 Refills, Maintenance, 09/21/19 10:21:00 EDT, [facility]/pharmacy #[id number], 185, cm, 08/01/19 11:16:00 EST, Height [...] 1 film, Sublingual, Daily, masspat verified Scavron [id number] dissolve under the tongue fill on/after 09/14/2019, # 28 film, 0 Refills, Maintenance, 09/15/19 11:46:00 EDT, Film, [facility]/pharmacy #0983, 1film Sublingual Daily,x28 days,Instr:masspat v... Start Date: 09/15/19 Stop Date: 10/13/19 Status: Ordered Zofran 4 mg oral tablet 1 tablet = 4 mg, By Mouth, Every 8 hours, PRN Nausea & Vomiting, # 10 tablet, 1 Refills, Maintenance, 09/09/19 16:03:00 EDT, Tablet, [facility], 185, cm, 08/01/19 11:16:00 EST, Height Start Date: 09/09/19 Status: Ordered Problem List Condition Effective Dates Status Health Status Inform ant Opioid dependence(Confirmed) Active
--- OUTSIDE RECORDS SUMMARY | 2023-06-20 11:43 | XMS_ITS | Continuity of Care Document ---
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 Role Phone Mykel Marquis MD [id number] - 06/29/20 [facility]/[address] [address]- Attending Physician: Mykel Marquis MD Admitting Physician: Mykel Marquis MD Allergies, Adverse Reactions, Alerts Substance Reaction Severity Status Percocet 5/325 1 Active 1severe agitation Medications clonazePAM 1 mg oral tablet 1 tablet = 1 mg, By Mouth, 2 times a day, 06/27/2020, # 14 tablet, 0 Refills, Maintenance, 218:27:00 EST, Tablet, [facility], 185, cm, 06/15/20 13:02:00 EST, Height [...] Maintenance,09/02/19 14:13:00 EDT, Route to Pharmacy Electronically, [facility], 185, cm, 08/01/19 11:16:00 EST, Height Start Date: 09/02/19 Status: Ordered mirtazapine 15 mg oral tablet 1 tablet, By Mouth, Daily at bedtime, # 30 tablet, 5 Refills, Maintenance, 05/16/20 12:07:00 EST, [facility]/pharmacy #[id number], 185, cm, 03/30/20 14:01:00 EDT, Height Start Date: 05/16/20 Status: Ordered omeprazole 40 mg oral enteric coated capsule 1 capsule = 40 mg, By Mouth, Daily, # 90 capsule, 2 Refills, Maintenance, 12/21/19 22:04:00 EDT, ECCapsule, [facility]/pharmacy #[id number], 185, cm, 08/01/19 11:16:00 EST, Height Start Date: 12/21/19 Stop Date: 09/16/20 Status: Ordered ondansetron 4 mg oral tablet 1 tablet, By Mouth, Every 8 hours, PRN NEEDED FOR NAUSEA AND VOMITING, # 9 tablet, 2 Refills, Maintenance, 05/30/20 15:37:00 EST, [facility]/pharmacy #[id number], 185, cm, 03/30/20 14:01:00 EDT, Height Start Date: 05/30/20 Stop Date: 06/14/20 Status: Ordered ondansetron 4 mg oral tablet See Instructions, TAKE 1 TABLET BY MOUTH EVERY 8 HOURS NEEDED FOR NAUSEA AND VOMITING F0R 5 DAYS, # 9 tablet, 0 Refills, 06/15/20 14:53:00 EST, [facility]/pharmacy #[id number], 185, cm, 06/15/20 13:02:00 EST, Height Start Date: 06/15/20 Status: Ordered Suboxone 4 mg-1 mg sublingual film 1 film, Sublingual, Daily, [id number] Scavron dissolve under the tongue DUE 07/04/2020, # 7 film, 0 Refills, Maintenance, 06/28/20 10:37:00 EST, Film, [facility], 1 film Sublingual Daily,x7 days,Instr:[id number] Scavron; dissolve und... Start Date: 06/28/20 Stop Date: 07/05/20 Status: Ordered Suboxone 8 mg-2 mg sublingual film 1 film, Sublingual, Daily, masspat verified Scavron [id number] dissolve under the tongue fill on/after 06/27/2020, # 7 film, 0 Refills, Maintenance, 06/27/20 8:27:00 EST, Film, [facility], 1 film Sublingual Daily,x7 days,Instr:... Start Date: [...]
--- OUTSIDE RECORDS SUMMARY | 2023-06-20 11:44 | XMS_ITS | Continuity of Care Document ---
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 Refills 0, Maintenance, 10/04/20 15:18:00 EDT, Route to Pharmacy Electronically, [facility], Partial fill upon patient request if the prescription is for a schedul... Start Date: 10/04/20 Status: Ordered duloxetine 30 mg oral enteric coated capsule 1 capsule = 30 mg, By Mouth, Daily, # 30 capsule, 0 Refills, Maintenance, 10/04/20 15:18:00 EDT, Capsule, [facility], Partial fill upon patient request if the prescription is for a schedule II opioid drug., 185, cm, 10/04/20 11:41:00 EDT... Start Date: 10/04/20 Status: Ordered gabapentin 300 mg oral capsule 300 mg, 1, capsule, By Mouth, 3 times a day, # 270 capsule, Refills 5, Tot. Refills 5, Maintenance,10/04/20 15:18:00 EDT, Route to Pharmacy Electronically, [facility], 185, cm, 10/04/20 11:41:00 EDT, Height Start Date: 10/04/20 Status: Ordered omeprazole 40 mg oral enteric coated capsule 1 capsule = 40 mg, By Mouth, Daily, # 90 capsule, 2 Refills, Maintenance, 12/21/19 22:04:00 EDT, ECCapsule, [facility]/pharmacy #[id number], 185, cm, 08/01/19 11:16:00 EST, Height Start Date: 12/21/19 Stop Date: 09/16/20 Status: Ordered ondansetron 4 mg oral tablet See Instructions, TAKE 1 TABLET BY MOUTH EVERY 8 HOURS NEEDED FOR NAUSEA AND VOMITING, # 9 tablet, 0 Refills, 07/24/20 14:41:00 EST, [facility]/pharmacy #[id number], 185, cm, 06/15/20 13:02:00 EST, Height Start Date: 07/24/20 Status: Ordered SEROquel 25 mg oral tablet 50 mg, 2, tablet, By Mouth, Every 8 hours, PRN, # 14 tablet, Refills 0, Tot. Refills 0, Maintenance, Agitation, 10/04/20 15:19:00 EDT, Route to Pharmacy Electronically, [facility], Partial fill upon patient request if the prescription is... Start Date: 10/04/20 Status: Ordered Suboxone 4 mg-1 mg sublingual film 3 film, Sublingual, Daily, [id number] Scavron dissolve under the tongue DUE 09/12/2020, # 21 film, 0 Refills, Maintenance, 10/04/20 15:17:00 EDT, Film, [facility], 3 film Sublingual Daily,x7 days,Instr:[id number] Scavron; dissolve under t... Start Date: 10/04/20 Stop Date: 10/11/20 Status: Ordered Suboxone 4 mg-1 mg sublingual film 1 film, Sublingual, 3 times a day, dissolve under the tongue, # 9 film, 0 Refills, Maintenance, 10/04/20 16:01:00 EDT, Film, [facility], Partial fill upon patient request if the prescription is for a schedule II opioid drug. [id number], 1... Start Date: 10/04/20 Status: Ordered thiamine 100 mg oral tablet 100 mg, 1, tablet, By Mouth, Daily, for 30 days, # 30 tablet, Refills 0, Tot. Refills 0, Acute 11/03/20 15:19:00 EDT, 10/04/20 15:19:00 EDT, Route to Pharmacy Electronically, [facility], Partial fill upon patient request if the prescript... Start Date: 10/04/20 Stop Date: 11/03/20 Status: Ordered traZODone 50 mg oral tablet 50 mg, 1, tablet, By Mouth, Daily at bedtime, PRN, # 10 tablet, Refills 0, Tot. Refills 0, Maintenance, Insomnia, 10/04/20 15:19:00 EDT, Route to Pharmacy Electronically, [facility], Partial fill upon patient [...]
--- OUTSIDE RECORDS SUMMARY | 2023-06-20 11:44 | XMS_ITS | Continuity of Care Document ---
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 Name Role Phone Mykel Marquis MD [id number]12[facility]20 - 06/09/20 [facility]/[address] [address]- Attending Physician: Mykel Marquis MD Admitting Physician: Mykel Marquis MD Allergies, Adverse Reactions, Alerts Substance Reaction Severity Status Percocet 5/325 1 Active 1severe agitation Medications clonazePAM 1 mg oral tablet 1 tablet = 1 mg, By Mouth, 2 times a day, 06/06/2020, # 14 tablet, 0 Refills, Maintenance, 06/06/2113:09:00 EST, Tablet, [facility], 185, cm, 03/30/20 14:01:00 EDT, Height Start Date: 06/06/20 Stop Date: 06/13/20 Status: Ordered Crutches Crutches, See Instructions, # [...] Maintenance,09/02/19 14:13:00 EDT, Route to Pharmacy Electronically, [facility], 185, cm, 08/01/19 11:16:00 EST, Height Start Date: 09/02/19 Status: Ordered mirtazapine 15 mg oral tablet 1 tablet, By Mouth, Daily at bedtime, # 30 tablet, 5 Refills, Maintenance, 05/16/20 12:07:00 EST, [facility]/pharmacy #[id number], 185, cm, 03/30/20 14:01:00 EDT, Height Start Date: 05/16/20 Status: Ordered omeprazole 40 mg oral enteric coated capsule 1 capsule = 40 mg, By Mouth, Daily, # 90 capsule, 2 Refills, Maintenance, 12/21/19 22:04:00 EDT, ECCapsule, [facility]/pharmacy #1003, 185, cm, 08/01/19 11:16:00 EST, Height Start Date: 12/21/19 Stop Date: 09/16/20 Status: Ordered ondansetron 4 mg oral tablet 1 tablet, By Mouth, Every 8 hours, PRN NEEDED FOR NAUSEA AND VOMITING, # 9 tablet, 2 Refills, Maintenance, 05/30/20 15:37:00 EST, [facility]/pharmacy #[id number], 185, cm, 03/30/20 14:01:00 EDT, Height Start Date: 05/30/20 Stop Date: 06/14/20 Status: Ordered Suboxone 4 mg-1 mg sublingual film 1 film, Sublingual, Daily, dissolve under the tongue increase in dose [id number] 06/06/2020, # 7 film, 0 Refills, Maintenance, 06/06/20 14:09:00 EST, Film, [facility], 1 film Sublingual Daily,x7 days,Instr:dissolve under the ton... Start Date: 06/06/20 Stop Date: 06/13/20 Status: Ordered Suboxone 8 mg-2 mg sublingual film 1 film, Sublingual, Daily, masspat verified Scavron [id number] dissolve under the tongue fill on/after 06/06/2020, # 7 film, 0 Refills, Maintenance, 06/06/20 14:09:00 EST, Film, [facility], 1 film Sublingual Daily,x7 days,Instr... Start Date: 06/06/20 Stop Date: 06/13/20 Status: Ordered Problem List Condition Effective Dates [...]
--- OUTSIDE RECORDS SUMMARY | 2023-06-20 11:44 | XMS_ITS | Continuity of Care Document ---
Author Name Unknown Organization [facility] Address [address] [place] [address]- Care Team Providers Care Elevator Constructor Name Role Phone Mykel Marquis MD [id number] - 06/23/20 [facility] [address] [address]- Attending Physician: Mykel Marquis MD Admitting Physician: Mykel Marquis MD Allergies, Adverse Reactions, Alerts Substance Reaction Severity Status Percocet 5/325 1 Active 1severe agitation Medications clonazePAM 1 mg oral tablet 1 tablet = 1 mg, By Mouth, 2 times a day, 06/20/2020, # 14 tablet, 0 Refills, Maintenance, 06/20/2117:39:00 EST, Tablet, [facility]/pharmacy #[id number], 185, cm, 06/15/20 13:02:00 EST, Height Start Date: 06/20/20 Stop Date: 06/27/20 Status: Ordered Crutches Crutches, See Instructions, # [...] Maintenance,09/02/19 14:13:00 EDT, Route to Pharmacy Electronically, [facility], 185, cm, 08/01/19 11:16:00 EST, Height Start Date: 09/02/19 Status: Ordered mirtazapine 15 mg oral tablet 1 tablet, By Mouth, Daily at bedtime, # 30 tablet, 5 Refills, Maintenance, 05/16/20 12:07:00 EST, [facility]/pharmacy #[id number], 185, cm, 03/30/20 14:01:00 EDT, Height Start Date: 05/16/20 Status: Ordered omeprazole 40 mg oral enteric coated capsule 1 capsule = 40 mg, By Mouth, Daily, # 90 capsule, 2 Refills, Maintenance, 12/21/19 22:04:00 EDT, ECCapsule, [facility]/pharmacy #1003, 185, cm, 08/01/19 11:16:00 EST, Height Start Date: 12/21/19 Stop Date: 09/16/20 Status: Ordered ondansetron 4 mg oral tablet 1 tablet, By Mouth, Every 8 hours, PRN NEEDED FOR NAUSEA AND VOMITING, # 9 tablet, 2 Refills, Maintenance, 05/30/20 15:37:00 EST, [id number], 185, cm, 03/30/20 14:01:00 EDT, Height Start Date: 05/30/20 Stop Date: 06/14/20 Status: Ordered ondansetron 4 mg oral tablet See Instructions, TAKE 1 TABLET BY MOUTH EVERY 8 HOURS NEEDED FOR NAUSEA AND VOMITING F0R 5 DAYS, # 9 tablet, 0 Refills, 06/15/20 14:53:00 EST, [id number], 185, cm, 06/15/20 13:02:00 EST, Height Start Date: 06/15/20 Status: Ordered Suboxone 4 mg-1 mg sublingual film 1 film, Sublingual, Daily, dissolve under the tongue increase in dose [id number] 06/20/2020, # 7 film, 0 Refills, Maintenance, 06/20/20 18:39:00 EST, Film, [facility]/pharmacy #0693, 1 film Sublingual Daily,x7 days,Instr:dissolve under the tongue; increas... Start Date: 06/20/20 Stop Date: 06/27/20 Status: Ordered Suboxone 8 mg-2 mg sublingual film 1 film, Sublingual, Daily, masspat verified Scavron [id number] dissolve under the tongue fill on/after 06/20/2020, # 7 film, 0 Refills, Maintenance, 06/20/20 18:39:00 EST, Film, [facility], 1 film Sublingual Daily,x7 days,Instr:masspat mary... Start Date: 06/20/20 Stop Date: 06/27/20 Status: Ordered Problem List Condition Effective Dates [...]
--- OUTSIDE RECORDS SUMMARY | 2023-06-20 11:44 | XMS_ITS | Continuity of Care Document ---
Author Name Unknown Organization [facility] Address [address] [place] [address]- Care Team Providers Care Body Service Team Member Name Role Phone Mykel Marquis MD Primary Care Physician Encounter [facility] [place] Date(s): 08/26/19 - 10/08/19 [facility]/[address] [address]- [facility] Attending Physician: Mykel Marquis MD Admitting Physician: Mykel Marquis MD Allergies, Adverse Reactions, Alerts Substance Reaction Severity Status Percocet /325 1 Active 1severe agitation Medications Crutches Crutches, [...] Route to Pharmacy Electronically, [facility], 185, cm, 08/01/19 11:16:00 EST, Height Start Date: 09/02/19 Status: Ordered hydrOXYzine hydrochloride 50 mg oral tablet 1 tablet = 50 mg, By Mouth, 2 times a day, # 60 capsule, 2 Refills, Acute 10/01/20 13:47:00 EDT, 09/02/19 14:13:00 EDT, [facility], 185, cm, 08/01/19 11:16:00 EST, Height Start Date: 09/02/19 Stop Date: 10/01/20 Status: Ordered omeprazole 20 mg oral delayed release tablet 1 tablet = 20 mg, By Mouth, Daily, # 30 tablet, 1 Refills, Maintenance, 09/21/19 10:21:00 EDT, [facility]/pharmacy #[id number], 185, cm, 08/01/19 11:16:00 EST, Height Start Date: 09/21/19 Status: Ordered Remeron 15 mg oral tablet 1 tablet = 15 mg, By Mouth, Daily at bedtime, # 30 tablet, 3 Refills, Maintenance, 08/17/19 12:07:00 EDT, Tablet, [facility], 185, cm, 08/01/19 11:16:00 EST, Height Start Date: 08/17/19 Status: Ordered Suboxone 8 mg-2 mg sublingual film 1 film, Sublingual, Daily, masspat verified Scavron [id number] dissolve under the tongue fill on/after 09/14/2019, # 28 film, 0 Refills, Maintenance, 09/15/19 11:46:00 EDT, Film, [facility]/pharmacy #0983, 1film Sublingual Daily,x28 days,Instr:masspat v... Start Date: 09/15/19 Stop Date: 10/13/19 Status: Ordered Zofran 4 mg oral tablet 1 tablet = 4 mg, By Mouth, Every 8 hours, PRN Nausea & Vomiting, # 10 tablet, 1 Refills, Maintenance, 09/09/19 16:03:00 EDT, Tablet, [facility], 185, cm, 08/01/19 11:16:00 EST, Height Start Date: 09/09/19 Status: Ordered Problem List Condition Effective Dates Status Health Status Inform ant Opioid dependence(Confirmed) Active
--- OUTSIDE RECORDS SUMMARY | 2023-06-20 11:44 | XMS_ITS | Continuity of Care Document ---
Author Name Unknown Organization [facility] Address [address] [place] [address]- Care Team Providers Care Service Captain Name Role Phone Mykel Marquis MD Primary Care Physician En[place] [facility] [place] Date(s): 08/26/19 - 10/01/19 [facility]/[address] [address]- [facility] Attending Physician: Mykel Marquis MD Admitting Physician: Mykel Marquis MD Allergies, Adverse Reactions, Alerts Substance Reaction Severity Status Percocet 1 Active 1severe agitation Medications Crutches Crutches, [...] Maintenance,09/02/19 14:13:00 EDT, Route to Pharmacy Electronically, [facility], 185, cm, 08/01/19 11:16:00 EST, Height Start Date: 09/02/19 Status: Ordered hydrOXYzine hydrochloride 50 mg oral tablet 1 tablet = 50 mg, By Mouth, 2 times a day, # 60 capsule, 2 Refills, Acute 10/01/20 13:47:00 EDT, 09/02/19 14:13:00 EDT, [facility], 185, cm, 08/01/19 11:16:00 EST, Height Start Date: 09/02/19 Stop Date: 10/01/20 Status: Ordered omeprazole 20 mg oral delayed release tablet 1 tablet = 20 mg, By Mouth, Daily, # 30 tablet, 1 Refills, Maintenance, 09/21/19 10:21:00 EDT, [facility]/pharmacy #[id number], 185, cm, 08/01/19 11:16:00 EST, Height Start Date: 09/21/19 Status: Ordered Remeron 15 mg oral tablet 1 tablet = 15 mg, By Mouth, Daily at bedtime, # 30 tablet, 3 Refills, Maintenance, 08/17/19 12:07:00 EDT, Tablet, [facility], 185, cm, 08/01/19 11:16:00 EST, Height Start Date: 08/17/19 Status: Ordered Suboxone 8 mg-2 mg sublingual film 1 film, Sublingual, Daily, masspat verified Scavron [id number] dissolve under the tongue fill on/after 09/14/2019, # 28 film, 0 Refills, Maintenance, 09/15/19 11:46:00 EDT, Film, [facility]/pharmacy #[id number], 1film Sublingual Daily,x28 days,Instr:masspat v... Start Date: 09/15/19 Stop Date: 10/13/19 Status: Ordered Zofran 4 mg oral tablet 1 tablet = 4 mg, By Mouth, Every 8 hours, PRN Nausea & Vomiting, # 10 tablet, 1 Refills, Maintenance, 09/09/19 16:03:00 EDT, Tablet, [facility], 185, cm, 08/01/19 11:16:00 EST, Height Start Date: 09/09/19 Status: Ordered Problem List Condition Effective Dates Status Health Status Inform ant Opioid dependence(Confirmed) Active
--- OUTSIDE RECORDS SUMMARY | 2023-06-20 11:44 | XMS_ITS | Continuity of Care Document ---
Author Name Unknown Organization [facility] Address [address] [place] [address]- Care Team Providers Care Medical Review Coordinator Name Role Phone Mykel Marquis MD Primary Care Physician Encounter [facility] [place] Date(s): 08/01/19 - 09/09/19 [facility] [address] [address] [place] Attending Physician: Mykel Marquis MD Admitting Physician: [...] Route to Pharmacy Electronically, [facility], 185, cm, 08/01/19 11:16:00 EST, Height Start Date: 09/02/19 Status: Ordered hydrOXYzine hydrochloride 50 mg oral tablet 1 tablet = 50 mg, By Mouth, 2 times a day, # 60 capsule, 2 Refills, Acute 10/01/20 13:47:00 EDT, 09/02/19 14:13:00 EDT, [facility], 185, cm, 08/01/19 11:16:00 EST, Height Start Date: 09/02/19 Stop Date: 10/01/20 Status: Ordered Remeron 15 mg oral tablet 1 tablet = 15 mg, By Mouth, Daily at bedtime, # 30 tablet, 3 Refills, Maintenance, 08/17/19 12:07:00 EDT, Tablet, [facility], 185, cm, 08/01/19 11:16:00 EST, Height Start Date: 08/17/19 Status: Ordered Suboxone 8 mg-2 mg sublingual film 1 film, Sublingual, Daily, masspat verified Scavron [id number] dissolve under the tongue fill on/after 09/14/2019, # 28 film, 0 Refills, Maintenance, 09/02/19 14:14:00 EDT, Film, [facility], 1 film Sublingual Daily,x28 days,Instr:ma... Start Date: 09/02/19 Stop Date: 09/30/19 Status: Ordered Zofran 4 mg oral tablet 1 tablet = 4 mg, By Mouth, Every 8 hours, PRN Nausea & Vomiting, # 10 tablet, 1 Refills, Maintenance, 09/09/19 16:03:00 EDT, Tablet, [facility], 185, cm, 08/01/19 11:16:00 EST, Height Start Date: 09/09/19 Status: Ordered Problem List Condition Effective Dates Status Health Status Inform ant Opioid dependence(Confirmed) Active
--- OUTSIDE RECORDS SUMMARY | 2023-06-20 11:44 | XMS_ITS | Continuity of Care Document ---
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 [place] Date(s): 11/14/19 - 12/14/19 [facility] [address] [place] [address]- [facility] Attending Physician: Savannah Jackson Admitting Physician: AdmSavannah lilly Referring Physician: AdmtrSavannah Allergies, Adverse Reactions, Alerts Substance Reaction Severity [...] Maintenance,09/02/19 14:13:00 EDT, Route to Pharmacy Electronically, [facility], 185, cm, 08/01/19 11:16:00 EST, Height Start Date: 09/02/19 Status: Ordered hydrOXYzine hydrochloride 50 mg oral tablet 1 tablet = 50 mg, By Mouth, 2 times a day, # 60 capsule, 2 Refills, Maintenance, 12/05/19 9:36:00 EDT, [facility]/pharmacy #[id number], 185, cm, 08/01/19 11:16:00 EST, Height Start Date: 12/05/19 Status: Ordered omeprazole 40 mg oral enteric coated capsule 1 capsule = 40 mg, By Mouth, Daily, # 90 capsule, 0 Refills, Maintenance, 11/14/19 17:54:00 EDT, [id number] 185, cm, 08/01/19 11:16:00 EST, Height Start Date: 11/14/19 Status: Ordered ondansetron 4 mg oral tablet 1 tablet, By Mouth, Every 8 hours, PRN NEEDED FOR NAUSEA AND VOMITING, # 10 tablet, 1 Refills, Maintenance, 11/14/19 17:54:00 EDT, [facility]/pharmacy #[id number], 185, cm, 08/01/19 11:16:00 EST, Height Start Date: 11/14/19 Stop Date: 11/24/19 Status: Ordered Remeron 15 mg oral tablet 1 tablet = 15 mg, By Mouth, Daily at bedtime, # 30 tablet, 3 Refills, Maintenance, 08/17/19 12:07:00 EDT, Tablet, [facility], 185, cm, 08/01/19 11:16:00 EST, Height Start Date: 08/17/19 Status: Ordered Suboxone 4 mg-1 mg sublingual film 1 film, Sublingual, Daily, dissolve under the tongue increase in dose, # 28 film, 0 Refills, Maintenance, 12/05/19 16:30:00 EDT, Film, [facility]/pharmacy #[id number], 1 film Sublingual Daily,Instr:dissolve underthe tongue; increase in dose, 185, cm, 08/01/19 11... Start Date: 12/05/19 Status: Ordered Suboxone 8 mg-2 mg sublingual film 1 film, Sublingual, Daily, masspat verified Scavron [id number] dissolve under the tongue fill on/after 12/05/2019, # 28 film, 0 Refills, Maintenance, 12/05/19 16:30:00 EDT, Film, [facility]/pharmacy #0639, 1film Sublingual Daily,x28 days,Instr:masspat v... Start Date: 12/05/19 Stop Date: 01/02/20 Status: Ordered Problem List Condition Effective Dates Status Health Status Inform ant Abdominal pain(Confirmed) Active Anxiety, generalized(Confirmed) Active Nicotine dependence(Confirmed) Active Opioid dependence(Confirmed) Active Addiction, opium(Confirmed) Active Major depressive disorder, severe(Confirmed) Active Vomiting(Confirmed) Active
--- OUTSIDE RECORDS SUMMARY | 2023-06-20 11:44 | XMS_ITS | Continuity of Care Document ---
Author Name Unknown Organization [facility] Address [address] [place] [address]- Care Team Providers Care Instructor Warper Name Role Phone Mykel Marquis MD Primary Care Physician Encounter [facility] [place] Date(s): 08/19/19 - 10/01/19 [facility]/[address] [address]- [facility] Attending Physician: Mykel Marquis MD Admitting [...] Maintenance,09/02/19 14:13:00 EDT, Route to Pharmacy Electronically, [facility], 185, cm, 08/01/19 11:16:00 EST, Height Start Date: 09/02/19 Status: Ordered hydrOXYzine hydrochloride 50 mg oral tablet 1 tablet = 50 mg, By Mouth, 2 times a day, # 60 capsule, 2 Refills, Acute 10/01/20 13:47:00 EDT, 09/02/19 14:13:00 EDT, [facility], 185, cm, 08/01/19 11:16:00 EST, Height Start Date: 09/02/19 Stop Date: 10/01/20 Status: Ordered omeprazole 20 mg oral delayed release tablet 1 tablet = 20 mg, By Mouth, Daily, # 30 tablet, 1 Refills, Maintenance, 09/21/19 10:21:00 EDT, [facility]/pharmacy #[id number], 185, cm, 08/01/19 11:16:00 EST, Height Start Date: 09/21/19 Status: Ordered Remeron 15 mg oral tablet 1 tablet = 15 mg, By Mouth, Daily at bedtime, # 30 tablet, 3 Refills, Maintenance, 08/17/19 12:07:00 EDT, Tablet, [facility], 185, cm, 08/01/19 11:16:00 EST, Height Start Date: 08/17/19 Status: Ordered Suboxone 8 mg-2 mg sublingual film 1 film, Sublingual, Daily, masspat verified Scavron [id number] dissolve under the tongue fill on/after 09/14/2019, # 28 film, 0 Refills, Maintenance, 09/15/19 11:46:00 EDT, Film, [facility]/pharmacy #[id number], 1film Sublingual Daily,x28 days,Instr:masspat v... Start Date: 09/15/19 Stop Date: 10/13/19 Status: Ordered Zofran 4 mg oral tablet 1 tablet = 4 mg, By Mouth, Every 8 hours, PRN Nausea & Vomiting, # 10 tablet, 1 Refills, Maintenance, 09/09/19 16:03:00 EDT, Tablet, [facility], 185, cm, 08/01/19 11:16:00 EST, Height Start Date: 09/09/19 Status: Ordered Problem List Condition Effective Dates Status Health Status Inform ant Opioid dependence(Confirmed) Active
--- OUTSIDE RECORDS SUMMARY | 2023-06-20 11:44 | XMS_ITS | Continuity of Care Document ---
Author Name Unknown Organization [facility] Address [address] [place] [address]- Care Team Providers Care Lens Grinder Apprentice Name Role Phone Mykel Marquis MD Primary Care Physician Encounter [facility] Date(s): 12/13/20 - 01/12/21 [facility] [address] [address]- Allergies, Adverse Reactions, Alerts Substance Reaction Severity Status Percocet 1 Active 1severe agitation Immunizations Given and Recorded Vaccine Date Status Refusal Reason SARS-CoV-2 (COVID-19) mRNA BNT-162b2 vac 12/28/20 Given [...] Recorded Medications cloNIDine 0.1 mg oral tablet 0.1 mg, 1, tablet, By Mouth, 2 times a day, # 60 tablet, Refills 0, Tot. Refills 0, Maintenance, 12/28/20 15:58:00 EDT, Route to Pharmacy Electronically, [facility] #[id number], Partial fill upon patient request if the prescription is for a sched... Start Date: 12/28/20 Stop Date: 01/27/21 Status: Ordered duloxetine 30 mg oral enteric coated capsule 1 capsule = 30 mg, By Mouth, Daily, # 30 capsule, 0 Refills, Maintenance, 12/28/20 15:58:00 EDT, Capsule, [facility] #[id number], Partial fill upon patient request if the prescription is for a schedule II opioid drug., 185, cm, 12/28/20 15:45:00... Start Date: 12/28/20 Status: Ordered gabapentin 300 mg oral capsule 1, capsule, By Mouth, 3 times a day, # 270 capsule, Refills 1, Tot. Refills 0, Maintenance, 12/06/20 8:24:00 EDT, Route to Pharmacy Electronically, [id number], 185, cm, 10/04/20 11:41:00 EDT, Height Start Date: 12/06/20 Status: Ordered omeprazole 40 mg oral enteric coated capsule 1 capsule = 40 mg, By Mouth, Daily, # 90 capsule, 2 Refills, Maintenance, 12/21/19 22:04:00 EDT, ECCapsule, [facility]/pharmacy #1003, 185, cm, 08/01/19 11:16:00 EST, Height Start Date: 12/21/19 Stop Date: 09/16/20 Status: Ordered ondansetron 4 mg oral tablet See Instructions, TAKE 1 TABLET BY MOUTH EVERY 8 HOURS NEEDED FOR NAUSEA AND VOMITING, # 9 tablet, 0 Refills, 07/24/20 14:41:00 EST, [facility]/pharmacy #[id number], 185, cm, 06/15/20 13:02:00 EST, Height Start Date: 07/24/20 Status: Ordered SEROquel 50 mg oral tablet 2 tablet = 100 mg, By Mouth, 2 times a day, # 120 tablet, 0 Refills, Maintenance, 12/28/20 15:59:00EDT, [facility] #[id number], Partial fill upon patient request if the prescription is for a schedule II opioid drug., 185, cm, 12/28/20 15:45:00 E... Start Date: 12/28/20 Stop Date: 01/27/21 Status: Ordered Problem List Condition Effective Dates [...]
--- OUTSIDE RECORDS SUMMARY | 2023-06-20 11:44 | XMS_ITS | Continuity of Care Document ---
Author Name Unknown Organization [facility] Address [address] [place] [address]- Care Team Providers Care Emergency Medicine Physician Name Role Phone Mykel Marquis MD Primary Care Physician [place] [facility] [place] - 03/02/20 [facility] [address] [address]- [facility] Allergies, Adverse Reactions, Alerts Substance Reaction Severity [...] Maintenance,09/02/19 14:13:00 EDT, Route to Pharmacy Electronically, [facility], 185, cm, 08/01/19 11:16:00 EST, Height Start Date: 09/02/19 Status: Ordered hydrOXYzine hydrochloride 50 mg oral tablet 1 tablet = 50 mg, By Mouth, 2 times a day, # 60 capsule, 2 Refills, Maintenance, 12/05/19 9:36:00 EDT, [facility]/pharmacy #[id number], 185, cm, 08/01/19 11:16:00 EST, Height Start Date: 12/05/19 Status: Ordered omeprazole 40 mg oral enteric coated capsule 1 capsule = 40 mg, By Mouth, Daily, # 90 capsule, 2 Refills, Maintenance, 12/21/19 22:04:00 EDT, ECCapsule, [facility]/pharmacy #[id number], 185, cm, 08/01/19 11:16:00 EST, Height Start Date: 12/21/19 Stop Date: 09/16/20 Status: Ordered ondansetron 4 mg oral tablet 1 tablet, By Mouth, Every 8 hours, PRN NEEDED FOR NAUSEA AND VOMITING, # 9 tablet, 2 Refills, Maintenance, 02/02/20 8:47:00 EDT, [facility] [id number], 185, cm, 08/01/19 11:16:00 EST, Height Start Date: 02/02/20 Stop Date: 02/07/20 Status: Ordered Remeron 15 mg oral tablet 1 tablet = 15 mg, By Mouth, Daily at bedtime, # 30 tablet, 3 Refills, Maintenance, 08/17/19 12:07:00 EDT, Tablet, [facility], 185, cm, 08/01/19 11:16:00 EST, Height Start Date: 08/17/19 Status: Ordered Suboxone 4 mg-1 mg sublingual film 1 film, Sublingual, Daily, dissolve under the tongue increase in dose [id number] 02/23/2020, # 28 film, 0 Refills, Maintenance, 02/21/20 16:08:00 EDT, Film, [facility], 1 film Sublingual Daily,Instr:dissolve under the tongue; in... Start Date: 02/21/20 Status: Ordered Suboxone 8 mg-2 mg sublingual film 1 film, Sublingual, Daily, masspat verified Scavron [id number] dissolve under the tongue fill on/after 02/23/2020, # 28 film, 0 Refills, Maintenance, 02/21/20 16:08:00 EDT, Film, [facility], 1 film Sublingual Daily,x28 days,Ins... Start Date: 02/21/20 Stop Date: 03/20/20 Status: Ordered Problem List Condition Effective Dates Status Health Status Inform ant Abdominal pain(Confirmed) Active Anxiety, generalized(Confirmed) Active Nicotine dependence(Confirmed) Active Opioid dependence(Confirmed) Active Addiction, opium(Confirmed) Active Major depressive disorder, severe(Confirmed) Active Vomiting(Confirmed) Active
--- OUTSIDE RECORDS SUMMARY | 2023-06-20 11:44 | XMS_ITS | Continuity of Care Document ---
Author Name Unknown Organization [facility] Address Unknown Care Team Providers Care Fire Protection Equipment Technician Name Role Phone Mykel Marquis MD Primary Care Physician [place] [id number] Date(s): 02/22/21 - 03/24/21 [facility] Attending Physician: Savannah Jackson Admitting Physician: Savannah Jackson Referring Physician: Admtr, Ar8 Allergies, Adverse Reactions, Alerts Substance Reaction Severity Status Percocet 5/325 1 Active 1severe agitation Immunizations Given and [...] Replace Required Details, Route to Pharmacy Electronically, [facility] #[id number], 185, cm, 12/28/20 15:45:00 EDT, Height Start Date: 01/25/21 Status: Ordered cloNIDine 0.1 mg oral tablet 0.1 mg, 1, tablet, By Mouth, 2 times a day, # 60 tablet, Refills 0, Tot. Refills 0, Maintenance, 12/28/20 15:58:00 EDT, Route to Pharmacy Electronically, [facility] #[id number], Partial fill upon patient request if the prescription is for a sched... Start Date: 12/28/20 Stop Date: 01/27/21 Status: Ordered duloxetine 30 mg oral enteric coated capsule See Instructions, TAKE 1 CAPSULE BY MOUTH DAILY, # 30 capsule, 0 Refills, [facility] #[id number], 185, cm, 12/28/20 15:45:00 EDT, Height Start Date: 01/25/21 Status: Ordered duloxetine 30 mg oral enteric coated capsule 1 capsule = 30 mg, By Mouth, Daily, # 30 capsule, 0 Refills, Maintenance, 12/28/20 15:58:00 EDT, Capsule, [facility] #[id number], Partial fill upon patient request if the prescription is for a schedule II opioid drug., 185, cm, 12/28/20 15:45:00... Start Date: 12/28/20 Status: Ordered gabapentin 300 mg oral capsule 1, capsule, By Mouth, 3 times a day, # 270 capsule, Refills 1, Tot. Refills 0, Maintenance, 12/06/20 8:24:00 EDT, Route to Pharmacy Electronically, [id number], 185, cm, 10/04/20 11:41:00 EDT, Height Start Date: 12/06/20 Status: Ordered omeprazole 40 mg oral enteric coated capsule 1 capsule = 40 mg, By Mouth, Daily, # 90 capsule, 2 Refills, Maintenance, 12/21/19 22:04:00 EDT, ECCapsule, [facility]/pharmacy #1003, 185, cm, 08/01/19 11:16:00 EST, Height Start Date: 12/21/19 Stop Date: 09/16/20 Status: Ordered ondansetron 4 mg oral tablet See Instructions, TAKE 1 TABLET BY MOUTH EVERY 8 HOURS NEEDED FOR NAUSEA AND VOMITING, # 9 tablet, 0 Refills, 07/24/20 14:41:00 EST, [facility]/pharmacy #[id number], 185, cm, 06/15/20 13:02:00 EST, Height Start Date: 07/24/20 Status: Ordered SEROquel 50 mg oral tablet 2 tablet = 100 mg, By Mouth, 2 times a day, # 120 tablet, 0 Refills, Maintenance, 02/01/21 13:13:00EDT, [facility] #[id number], Partial fill upon patient request if the [...]
--- OUTSIDE RECORDS SUMMARY | 2023-06-20 11:44 | XMS_ITS | Continuity of Care Document ---
Author Name Unknown Organization [facility] Address [address] [place] [address]- Care Team Providers Care Consulting Practice Director Name Role Phone Mykel Marquis MD Primary Care Physician Encounter [facility] [place] Date(s): 12/08/19 - 02/04/20 [facility] [address] [address]- [facility] Attending Physician: Mykel Marquis MD Admitting Physician: [...] Maintenance,09/02/19 14:13:00 EDT, Route to Pharmacy Electronically, [facility], 185, cm, 08/01/19 11:16:00 EST, Height Start Date: 09/02/19 Status: Ordered hydrOXYzine hydrochloride 50 mg oral tablet 1 tablet = 50 mg, By Mouth, 2 times a day, # 60 capsule, 2 Refills, Maintenance, 12/05/19 9:36:00 EDT, [facility]/pharmacy #1003, 185, cm, 08/01/19 11:16:00 EST, Height Start Date: 12/05/19 Status: Ordered omeprazole 40 mg oral enteric coated capsule 1 capsule = 40 mg, By Mouth, Daily, # 90 capsule, 2 Refills, Maintenance, 12/21/19 22:04:00 EDT, ECCapsule, [facility]/pharmacy #1003, 185, cm, 08/01/19 11:16:00 EST, Height Start Date: 12/21/19 Stop Date: 09/16/20 Status: Ordered ondansetron 4 mg oral tablet 1 tablet, By Mouth, Every 8 hours, PRN NEEDED FOR NAUSEA AND VOMITING, # 9 tablet, 2 Refills, Maintenance, 02/02/20 8:47:00 EDT, [id number], 185, cm, 08/01/19 11:16:00 EST, Height Start Date: 02/02/20 Stop Date: 02/07/20 Status: Ordered Remeron 15 mg oral tablet 1 tablet = 15 mg, By Mouth, Daily at bedtime, # 30 tablet, 3 Refills, Maintenance, 08/17/19 12:07:00 EDT, Tablet, [facility], 185, cm, 08/01/19 11:16:00 EST, Height Start Date: 08/17/19 Status: Ordered Suboxone 4 mg-1 mg sublingual film 1 film, Sublingual, Daily, dissolve under the tongue increase in dose [id number] 01/26/2020, # 28 film, 0 Refills, Maintenance, 01/26/20 10:28:00 EDT, Film Start Date: 01/26/20 Status: Ordered Suboxone 8 mg-2 mg sublingual film 1 film, Sublingual, Daily, masspat verified Scavron [id number] dissolve under the tongue fill on/after 01/26/2020, # 28 film, 0 Refills, Maintenance, 01/26/20 10:28:00 EDT, Film Start Date: 01/26/20 Stop Date: 02/23/20 Status: Ordered Problem List Condition Effective Dates Status Health Status Inform ant Abdominal pain(Confirmed) Active Anxiety, generalized(Confirmed) Active Nicotine dependence(Confirmed) Active Opioid dependence(Confirmed) Active Addiction, opium(Confirmed) Active Major depressive disorder, severe(Confirmed) Active Vomiting(Confirmed) Active
--- OUTSIDE RECORDS SUMMARY | 2023-06-20 11:44 | XMS_ITS | Continuity of Care Document ---
Author Name Unknown Organization [facility] Address [address] [place] [address]- Care Team Providers Care White Sugar Syrup Operator Name Role Phone Mykel Marquis MD Primary Care Physician [place] [facility] [place]20 - 10/25/20 [facility]/[address] [address]- Attending Physician: Mykel Marquis MD Admitting Physician: Mykel Marquis MD Allergies, Adverse Reactions, Alerts Substance Reaction Severity Status Percocet 5/325 1 Active 1severe agitation Medications cloNIDine 0.1 mg oral tablet 0.1 mg, 1, tablet, By Mouth, 4 times a day, # 120 tablet, Refills 0, Tot. Refills 0, Maintenance, 10/04/20 15:18:00 EDT, Route to Pharmacy Electronically, [facility], Partial fill upon patient request if the prescription is for a schedul... Start Date: 10/04/20 Status: Ordered duloxetine 30 mg oral enteric coated capsule 1 capsule = 30 mg, By Mouth, Daily, # 30 capsule, 0 Refills, Maintenance, 10/04/20 15:18:00 EDT, Capsule, [facility], Partial fill upon patient request if the prescription is for a schedule II opioid drug., 185, cm, 10/04/20 11:41:00 EDT... Start Date: 10/04/20 Status: Ordered gabapentin 300 mg oral capsule 300 mg, 1, capsule, By Mouth, 3 times a day, # 270 capsule, Refills 5, Tot. Refills 5, Maintenance,10/04/20 15:18:00 EDT, Route to Pharmacy Electronically, [facility], 185, cm, 10/04/20 11:41:00 EDT, Height Start Date: 10/04/20 Status: Ordered omeprazole 40 mg oral enteric coated capsule 1 capsule = 40 mg, By Mouth, Daily, # 90 capsule, 2 Refills, Maintenance, 12/21/19 22:04:00 EDT, ECCapsule, [facility]/pharmacy #[id number], 185, cm, 08/01/19 11:16:00 EST, Height Start Date: 12/21/19 Stop Date: 09/16/20 Status: Ordered ondansetron 4 mg oral tablet See Instructions, TAKE 1 TABLET BY MOUTH EVERY 8 HOURS NEEDED FOR NAUSEA AND VOMITING, # 9 tablet, 0 Refills, 07/24/20 14:41:00 EST, [facility]/pharmacy #[id number], 185, cm, 06/15/20 13:02:00 EST, Height Start Date: 07/24/20 Status: Ordered SEROquel 25 mg oral tablet 50 mg, 2, tablet, By Mouth, Every 8 hours, PRN, # 14 tablet, Refills 0, Tot. Refills 0, Maintenance, Agitation, 10/04/20 15:19:00 EDT, Route to Pharmacy Electronically, [facility] 3, Partial fill upon patient request if the prescription is... Start Date: 10/04/20 Status: Ordered Suboxone 4 mg-1 mg sublingual film 3 film, Sublingual, Daily, [id number] Scavron dissolve under the tongue DUE 09/12/2020, # 21 film, 0 Refills, Maintenance, 10/04/20 15:17:00 EDT, Film, [facility], 3 film Sublingual Daily,x7 days,Instr:[id number] Scavron; dissolve under t... Start Date: 10/04/20 Stop Date: 10/11/20 Status: Ordered Suboxone 4 mg-1 mg sublingual film 1 film, Sublingual, 3 times a day, dissolve under the tongue, # 9 film, 0 Refills, Maintenance, 10/04/20 16:01:00 EDT, Film, [facility] 3, Partial fill upon patient request if the prescription is for a schedule II opioid drug. [id number], 1... Start Date: 10/04/20 Status: Ordered thiamine 100 mg oral tablet 100 mg, 1, tablet, By Mouth, Daily, for 30 days, # 30 tablet, Refills 0, Tot. Refills 0, Acute 11/03/20 15:19:00 EDT, 10/04/20 15:19:00 EDT, Route to Pharmacy Electronically, [facility], Partial fill upon patient request if the prescript... Start Date: 10/04/20 Stop Date: 11/03/20 Status: Ordered traZODone 50 mg oral tablet 50 mg, 1, tablet, By Mouth, Daily at bedtime, PRN, # 10 tablet, Refills 0, Tot. Refills 0, Maintenance, Insomnia, 10/04/20 15:19:00 EDT, Route to Pharmacy Electronically, [facility], Partial fill upon patient [...]
--- OUTSIDE RECORDS SUMMARY | 2023-06-20 11:44 | XMS_ITS | Continuity of Care Document ---
Author Name Unknown Organization [facility] Address [address] [place] [address]- Care Team Providers Care Veterinary Medical Officer Name Role Phone Mykel Marquis MD Primary Care Physician Encounter [facility] [place] [facility] R [id number] Date(s): 12/05/19 - 01/22/20 [facility] [address] [address]- [facility] Attending Physician: Mykel Marquis MD Admitting Physician: [...] 2 Refills, Maintenance, 12/21/19 22:04:00 EDT, ECCapsule, [facility]/pharmacy #[id number], 185, cm, 08/01/19 11:16:00 EST, Height Start Date: 12/21/19 Stop Date: 09/16/20 Status: Ordered ondansetron 4 mg oral tablet 1 tablet, By Mouth, Every 8 hours, PRN NEEDED FOR NAUSEA AND VOMITING, # 10 tablet, 1 Refills, Maintenance, 12/28/19 16:06:00 EDT, [facility]/pharmacy #[id number], 185, cm, [...] dissolve under the tongue increase in dose [id number] 01/02/2020, # 28 film, 0 Refills, Maintenance, 12/29/19 15:36:00 EDT, Film, [facility]/pharmacy #1003, 1 film Sublingual Daily,Instr:dissolve under the tongue; increase in do... Start Date: 12/29/19 Status: Ordered Suboxone 8 mg-2 mg sublingual film 1 film, Sublingual, Daily, masspat verified Scavron [id number] dissolve under the tongue fill on/after 01/02/2020, # 28 film, 0 Refills, Maintenance, 12/29/19 15:36:00 EDT, Film, [facility]/pharmacy #1003, 1film Sublingual Daily,x28 days,Instr:masspat v... Start Date: 12/29/19 Stop Date: 01/26/20 Status: Ordered Problem List Condition Effective Dates Status Health Status Inform ant Abdominal pain(Confirmed) Active Anxiety, generalized(Confirmed) Active Nicotine dependence(Confirmed) Active Opioid dependence(Confirmed) Active Addiction, opium(Confirmed) Active Major depressive disorder, severe(Confirmed) Active Vomiting(Confirmed) Active
--- OUTSIDE RECORDS SUMMARY | 2023-06-20 11:44 | XMS_ITS | Continuity of Care Document ---
Author Name Unknown Organization [facility] Address [address] [place] [address]- Care Team Providers Care Table Games Dealer Name Role Phone Mykel Marquis MD [id number] - 06/08/20 [facility]/[address] [address]- Attending Physician: Mykel Marquis MD Admitting Physician: Mykel Marquis MD Allergies, Adverse Reactions, Alerts Substance Reaction Severity Status Percocet 5/325 1 Active 1severe agitation Medications clonazePAM 1 mg oral tablet 1 tablet = 1 mg, By Mouth, 2 times a day, 06/06/2020, # 14 tablet, 0 Refills, Maintenance, 06/06/2113:09:00 EST, Tablet, [facility], 185, cm, 03/30/20 14:01:00 EDT, Height Start [...] Maintenance,09/02/19 14:13:00 EDT, Route to Pharmacy Electronically, [facility], 185, cm, 08/01/19 11:16:00 EST, Height Start Date: 09/02/19 Status: Ordered mirtazapine 15 mg oral tablet 1 tablet, By Mouth, Daily at bedtime, # 30 tablet, 5 Refills, Maintenance, 05/16/20 12:07:00 EST, [facility]/pharmacy #[id number], 185, cm, 03/30/20 14:01:00 EDT, Height Start Date: 05/16/20 Status: Ordered omeprazole 40 mg oral enteric coated capsule 1 capsule = 40 mg, By Mouth, Daily, # 90 capsule, 2 Refills, Maintenance, 12/21/19 22:04:00 EDT, ECCapsule, [facility]/pharmacy #[id number], 185, cm, 08/01/19 11:16:00 EST, Height Start Date: 12/21/19 Stop Date: 09/16/20 Status: Ordered ondansetron 4 mg oral tablet 1 tablet, By Mouth, Every 8 hours, PRN NEEDED FOR NAUSEA AND VOMITING, # 9 tablet, 2 Refills, Maintenance, 05/30/20 15:37:00 EST, [facility]/pharmacy #[id number], 185, cm, 03/30/20 14:01:00 EDT, Height Start Date: 05/30/20 Stop Date: 06/14/20 Status: Ordered Suboxone 4 mg-1 mg sublingual film 1 film, Sublingual, Daily, dissolve under the tongue increase in dose [id number] 06/06/2020, # 7 film, 0 Refills, Maintenance, 06/06/20 14:09:00 EST, Film, [facility], 1 film Sublingual Daily,x7 days,Instr:dissolve under the ton... Start Date: 06/06/20 Stop Date: 06/13/20 Status: Ordered Suboxone 8 mg-2 mg sublingual film 1 film, Sublingual, Daily, masspat verified Scavron [id number] dissolve under the tongue fill on/after 06/06/2020, # 7 film, 0 Refills, Maintenance, 06/06/20 14:09:00 EST, Film, [facility], 1 film Sublingual Daily,x7 days,Instr... Start [...]
--- OUTSIDE RECORDS SUMMARY | 2023-06-20 11:44 | XMS_ITS | Continuity of Care Document ---
Author Name Unknown Organization [facility] Address [address] [place] [address]- Care Team Providers Care Wireless Construction Manager Name Role Phone Mykel Marquis MD Primary Care Physician Encounter [facility] [place] Date(s): 09/22/19 - 11/12/19 [facility]/[address] [address]- [facility] Attending Physician: Mykel Marquis MD [...] Maintenance,09/02/19 14:13:00 EDT, Route to Pharmacy Electronically, [facility], 185, cm, 08/01/19 11:16:00 EST, Height Start Date: 09/02/19 Status: Ordered hydrOXYzine hydrochloride 50 mg oral tablet 1 tablet = 50 mg, By Mouth, 2 times a day, # 60 capsule, 2 Refills, Acute 10/01/20 13:47:00 EDT, 09/02/19 14:13:00 EDT, [facility], 185, cm, 08/01/19 11:16:00 EST, Height Start Date: 09/02/19 Stop Date: 10/01/20 Status: Ordered omeprazole 20 mg oral delayed release tablet 1 tablet = 20 mg, By Mouth, Daily, # 30 tablet, 1 Refills, Maintenance, 10/10/19 17:29:00 EDT, [facility]/pharmacy #[id number], 185, cm, 08/01/19 11:16:00 EST, Height Start Date: 10/10/19 Status: Ordered ondansetron 4 mg oral tablet 1 tablet, By Mouth, Every 8 hours, PRN NEEDED FOR NAUSEA AND VOMITING, # 10 tablet, 0 Refills, Maintenance, 11/09/19 10:01:00 EDT, [id number], 185, cm, 08/01/19 11:16:00 EST, Height Start Date: 11/09/19 Status: Ordered Remeron 15 mg oral tablet 1 tablet = 15 mg, By Mouth, Daily at bedtime, # 30 tablet, 3 Refills, Maintenance, 08/17/19 12:07:00 EDT, Tablet, [facility], 185, cm, 08/01/19 11:16:00 EST, Height Start Date: 08/17/19 Status: Ordered Suboxone 8 mg-2 mg sublingual film 1 film, Sublingual, Daily, masspat verified Scavron [id number] dissolve under the tongue fill on/after 11/07/2019, # 28 film, 0 Refills, Maintenance, 11/07/19 10:31:00 EDT, Film, [facility]/pharmacy #1003, 1film Sublingual Daily,x28 days,Instr:masspat v... Start Date: 11/07/19 Stop Date: 12/05/19 Status: Ordered Problem List Condition Effective Dates Status Health Status Inform ant Opioid dependence(Confirmed) Active
--- OUTSIDE RECORDS SUMMARY | 2023-06-20 11:44 | XMS_ITS | Continuity of Care Document ---
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 Near syncope(Final) - 09/12/21 Discharge Disposition: A-D/C Home Attending Physician: Carlo Douglas MD Admitting Physician: Carlo Douglas MD Referring Physician: Not on Staff, Referring [...] MOUTH DAILY, # 30 capsule, 0 Refills, [id number], 185, cm, 12/28/20 15:45:00 EDT, Height Start [...] 0 Refills, Soft Stop, 08/16/21 12:26:00 EDT, [facility] 3, Partial fill upon patient request [...] Major depressive disorder, severe(Confirmed) Active Vomiting(Confirmed) Active Vital Signs Most recent to oldest [Reference Range]: 1 2 3 Oxygen Saturation [94-100 %] 97 % (09/12/21 4:21 AM) 96 % (09/12/21 3:24 AM) 97 % (09/12/21 12:56 AM) Pulse Rate [55-90 bpm] 87 bpm (09/12/21 4:21 AM) 73 bpm (09/12/21 3:24 AM) 93 bpm *H* (09/12/21 1:59 AM) Blood Pressure [90-138/55-84 mm Hg] 109/52mm Hg (09/12/21 4:21 AM) 105/60mm Hg (09/12/21 3:24 AM) 138/81mm Hg (09/12/21 1:59 AM) Respiratory Rate [16-30 br/min] 18 br/min (09/12/21 4:21 AM) 15 br/min *L* (09/12/21 3:24 AM) 16 br/min (09/12/21 1:59 AM) Temperature [96.8-100.4 DegF] 98.4 DegF (09/12/21 12:56 AM) Mode of Delivery (Oxygen) Room air (09/12/21 4:21 AM) Room air (09/12/21 3:24 AM) Room air (09/12/21 1:59 AM) Blood pressure sites Arm, left (09/12/21 4:21 AM) Arm, left (09/12/21 3:24 AM) Arm, left (09/12/21 1:59 AM) Temperature Route Oral (09/12/21 12:56 AM) Social History Social History Type Response Tobacco Use: 4 or less cigar ettes(less than 1/4 pack)/day in last 30 days. Other: Vapes. Tobacco user in household: No. Sex
--- OUTSIDE RECORDS SUMMARY | 2023-06-20 11:44 | XMS_ITS | Continuity of Care Document ---
Author Name Unknown Organization [facility] Address Unknown Care Team Providers Care Assistant Account Manager Name Role Phone Mykel Marquis MD Primary Care Physician [id number] Date(s): 09/02/21 - 10/02/21 [facility] Attending Physician: Savannah Jackson Admitting Physician: Savannah Jackson Referring Physician: Savannah Jackson Allergies, Adverse Reactions, Alerts No Known Allergies [...] MOUTH DAILY, # 30 capsule, 0 Refills, [id number], 185, cm, 12/28/20 15:45:00 EDT, Height Start [...] 0 Refills, Soft Stop, 08/16/21 12:26:00 EDT, [facility], Partial fill upon patient request if [...]
--- OUTSIDE RECORDS SUMMARY | 2023-06-20 11:44 | XMS_ITS | Continuity of Care Document ---
Author Name Unknown Organization [facility] Address [address] [place] [address]- Care Team Providers Care Store Receiver Name Role Phone Mykel Marquis MD Primary Care Physician Encounter [facility] [place] Date(s): 10/26/19 - 12/04/19 [facility] [address] [place] [address]- [facility] Attending Physician: Sherry Garcia MD Admitting Physician: Sherry Garcia MD Referring Physician: Mykel Marquis MD Allergies, [...] Maintenance,09/02/19 14:13:00 EDT, Route to Pharmacy Electronically, [facility], 185, cm, 08/01/19 11:16:00 EST, Height Start Date: 09/02/19 Status: Ordered hydrOXYzine hydrochloride 50 mg oral tablet 1 tablet = 50 mg, By Mouth, 2 times a day, # 60 capsule, 2 Refills, Acute 10/01/20 13:47:00 EDT, 09/02/19 14:13:00 EDT, [facility], 185, cm, 08/01/19 11:16:00 EST, Height Start Date: 09/02/19 Stop Date: 10/01/20 Status: Ordered omeprazole 40 mg oral enteric coated capsule 1 capsule = 40 mg, By Mouth, Daily, # 90 capsule, 0 Refills, Maintenance, 11/14/19 17:54:00 EDT, ECCapsule, [facility]/pharmacy #[id number], 185, cm, 08/01/19 11:16:00 EST, Height Start Date: 11/14/19 Status: Ordered ondansetron 4 mg oral tablet 1 tablet, By Mouth, Every 8 hours, PRN NEEDED FOR NAUSEA AND VOMITING, # 10 tablet, 1 Refills, Maintenance, 11/14/19 17:54:00 EDT, [facility]/pharmacy #[id number], 185, cm, 08/01/19 11:16:00 EST, Height Start Date: 11/14/19 Stop Date: 11/24/19 Status: Ordered Remeron 15 mg oral tablet 1 tablet = 15 mg, By Mouth, Daily at bedtime, # 30 tablet, 3 Refills, Maintenance, 08/17/19 12:07:00 EDT, Tablet, [facility], 185, cm, 08/01/19 11:16:00 EST, Height Start Date: 08/17/19 Status: Ordered Suboxone 8 mg-2 mg sublingual film 1 film, Sublingual, Daily, masspat verified Scavron [id number] dissolve under the tongue fill on/after 11/07/2019, # 28 film, 0 Refills, Maintenance, 11/07/19 10:31:00 EDT, Film, [facility]/pharmacy #[id number], 1film Sublingual Daily,x28 days,Instr:masspat v... Start Date: 11/07/19 Stop Date: 12/05/19 Status: Ordered Problem List Condition Effective Dates Status Health Status Inform ant Opioid dependence(Confirmed) Active
--- OUTSIDE RECORDS SUMMARY | 2023-06-20 11:44 | XMS_ITS | Continuity of Care Document ---
Author Name Unknown Organization [facility] Address [address] [place] [address]- Care Team Providers Care Jacquard Loom Fixer Name Role Phone Mykel Marquis MD Primary Care Physician Encounter [facility] Date(s): 10/25/20 - 11/24/20 [facility]/[address] [address]- Allergies, Adverse Reactions, Alerts Substance Reaction Severity Status Percocet 5/325 1 Active 1severe agitation Medications cloNIDine 0.1 mg oral tablet 0.1 mg, 1, tablet, By Mouth, 4 times a day, # 120 tablet, Refills 0, Tot. Refills 0, Maintenance, 10/04/20 15:18:00 EDT, Route to Pharmacy Electronically, [facility], Partial fill upon patient request if the prescription is for a schedul... Start Date: 10/04/20 Status: Ordered duloxetine 30 mg oral enteric coated capsule 1 capsule = 30 mg, By Mouth, Daily, # 30 capsule, 0 Refills, Maintenance, 10/04/20 15:18:00 EDT, Capsule, [facility], Partial fill upon patient request if the prescription is for a schedule II opioid drug., 185, cm, 10/04/20 11:41:00 EDT... Start Date: 10/04/20 Status: Ordered gabapentin 300 mg oral capsule 300 mg, 1, capsule, By Mouth, 3 times a day, # 270 capsule, Refills 5, Tot. Refills 5, Maintenance,10/04/20 15:18:00 EDT, Route to Pharmacy Electronically, [facility], 185, cm, 10/04/20 11:41:00 EDT, Height Start Date: 10/04/20 Status: Ordered omeprazole 40 mg oral enteric coated capsule 1 capsule = 40 mg, By Mouth, Daily, # 90 capsule, 2 Refills, Maintenance, 12/21/19 22:04:00 EDT, ECCapsule, [facility]/pharmacy #[id number], 185, cm, 08/01/19 11:16:00 EST, Height Start Date: 12/21/19 Stop Date: 09/16/20 Status: Ordered ondansetron 4 mg oral tablet See Instructions, TAKE 1 TABLET BY MOUTH EVERY 8 HOURS NEEDED FOR NAUSEA AND VOMITING, # 9 tablet, 0 Refills, 07/24/20 14:41:00 EST, [facility]/pharmacy #[id number], 185, cm, 06/15/20 13:02:00 EST, Height Start Date: 07/24/20 Status: Ordered SEROquel 25 mg oral tablet 50 mg, 2, tablet, By Mouth, Every 8 hours, PRN, # 14 tablet, Refills 0, Tot. Refills 0, Maintenance, Agitation, 10/04/20 15:19:00 EDT, Route to Pharmacy Electronically, [facility], Partial fill upon patient request if the prescription is... Start Date: 10/04/20 Status: Ordered Suboxone 4 mg-1 mg sublingual film 3 film, Sublingual, Daily, [id number] Scavron dissolve under the tongue DUE 09/12/2020, # 21 film, 0 Refills, Maintenance, 10/04/20 15:17:00 EDT, Film, [facility], 3 film Sublingual Daily,x7 days,Instr:[id number] Scavron; dissolve under t... Start Date: 10/04/20 Stop Date: 10/11/20 Status: Ordered Suboxone 4 mg-1 mg sublingual film 1 film, Sublingual, 3 times a day, dissolve under the tongue, # 9 film, 0 Refills, Maintenance, 10/04/20 16:01:00 EDT, Film, [facility] 3, Partial fill upon patient request if the prescription is for a schedule II opioid drug. [id number], 1... Start Date: 10/04/20 Status: Ordered traZODone 50 mg oral tablet 50 mg, 1, tablet, By Mouth, Daily at bedtime, PRN, # 10 tablet, Refills 0, Tot. Refills 0, Maintenance, Insomnia, 10/04/20 15:19:00 EDT, Route to Pharmacy Electronically, [facility], Partial fill upon patient [...]
--- OUTSIDE RECORDS SUMMARY | 2023-06-20 11:44 | XMS_ITS | Continuity of Care Document ---
Author Name Unknown Organization [facility] Address [address] [place] [address]- Care Team Providers Care Woven Paper Hat Mender Name Role Phone Mykel Marquis MD [id number]16[facility] - 06/15/20 [facility]/[address] [address]- Attending Physician: Mykel Marquis MD Admitting Physician: Mykel Marquis MD Allergies, Adverse Reactions, Alerts Substance Reaction Severity Status Percocet 5/325 1 Active 1severe agitation Medications clonazePAM 1 mg oral tablet 1 tablet = 1 mg, By Mouth, 2 times a day, 06/06/2020, # 14 tablet, 0 Refills, Maintenance, 219:25:00 EST, Tablet, [facility], 185, cm, 03/30/20 14:01:00 EDT, Height Start [...] 14:13:00 EDT, Route to Pharmacy Electronically, [facility], 185, cm, 08/01/19 11:16:00 EST, Height Start Date: 09/02/19 Status: Ordered mirtazapine 15 mg oral tablet 1 tablet, By Mouth, Daily at bedtime, # 30 tablet, 5 Refills, Maintenance, 05/16/20 12:07:00 EST, [facility]/pharmacy #[id number], 185, cm, 03/30/20 14:01:00 EDT, Height Start Date: 05/16/20 Status: Ordered omeprazole 40 mg oral enteric coated capsule 1 capsule = 40 mg, By Mouth, Daily, # 90 capsule, 2 Refills, Maintenance, 12/21/19 22:04:00 EDT, ECCapsule, [facility]/pharmacy #[id number], 185, cm, 08/01/19 11:16:00 EST, Height Start Date: 12/21/19 Stop Date: 09/16/20 Status: Ordered ondansetron 4 mg oral tablet 1 tablet, By Mouth, Every 8 hours, PRN NEEDED FOR NAUSEA AND VOMITING, # 9 tablet, 2 Refills, Maintenance, 05/30/20 15:37:00 EST, [facility]/pharmacy #[id number], 185, cm, 03/30/20 14:01:00 EDT, Height Start Date: 05/30/20 Stop Date: 06/14/20 Status: Ordered ondansetron 4 mg oral tablet See Instructions, TAKE 1 TABLET BY MOUTH EVERY 8 HOURS NEEDED FOR NAUSEA AND VOMITING F0R 5 DAYS, # 9 tablet, 0 Refills, 06/15/20 14:53:00 EST, [facility]/pharmacy #[id number], 185, cm, 06/15/20 13:02:00 EST, Height Start Date: 06/15/20 Status: Ordered Suboxone 4 mg-1 mg sublingual film 1 film, Sublingual, Daily, dissolve under the tongue increase in dose [id number] 06/06/2020, # 7 film, 0 Refills, Maintenance, 06/13/20 9:25:00 EST, Film, [facility], 1 film Sublingual Daily,x7 days,Instr:dissolve under the tong... Start Date: 06/13/20 Stop Date: 06/20/20 Status: Ordered Suboxone 8 mg-2 mg sublingual film 1 film, Sublingual, Daily, masspat verified Scavron [id number] dissolve under the tongue fill on/after 06/13/2020, # 7 film, 0 Refills, Maintenance, 06/13/20 9:25:00 EST, Film, [facility], 1 film Sublingual Daily,x7 days,Instr:... Start Date: [...]
--- OUTSIDE RECORDS SUMMARY | 2023-06-20 11:44 | XMS_ITS | Continuity of Care Document ---
Author Name Unknown Organization [facility] Address [address] [place] [address]- Care Team Providers Care Family Psychologist Name Role Phone Mykel Marquis MD Primary Care Physician Encounter [facility] [place] Date(s): 08/29/20 - 10/05/20 [facility]/[address] [address]- Attending Physician: Mykel Marquis MD Admitting Physician: Mykel Marquis MD Allergies, Adverse Reactions, Alerts Substance Reaction Severity Status Percocet 5/325 1 Active 1severe agitation Medications cloNIDine 0.1 mg oral tablet 0.1 mg, 1, tablet, By Mouth, 4 times a day, # 120 tablet, Refills 0, Tot. Refills 0, Maintenance, 10/04/20 15:18:00 EDT, Route to Pharmacy Electronically, [facility], Partial fill upon patient request if the prescription is for a schedul... Start Date: 10/04/20 Status: Ordered duloxetine 30 mg oral enteric coated capsule 1 capsule = 30 mg, By Mouth, Daily, # 30 capsule, 0 Refills, Maintenance, 10/04/20 15:18:00 EDT, Capsule, [facility], Partial fill upon patient request if the prescription is for a schedule II opioid drug., 185, cm, 10/04/20 11:41:00 EDT... Start Date: 10/04/20 Status: Ordered gabapentin 300 mg oral capsule 300 mg, 1, capsule, By Mouth, 3 times a day, # 270 capsule, Refills 5, Tot. Refills 5, Maintenance,10/04/20 15:18:00 EDT, Route to Pharmacy Electronically, [facility], 185, cm, 10/04/20 11:41:00 EDT, [...] 2 Refills, Maintenance, 12/21/19 22:04:00 EDT, ECCapsule, [facility]/pharmacy #[id number], 185, cm, 08/01/19 11:16:00 EST, Height Start Date: 12/21/19 Stop Date: 09/16/20 Status: Ordered ondansetron 4 mg oral tablet See Instructions, TAKE 1 TABLET BY MOUTH EVERY 8 HOURS NEEDED FOR NAUSEA AND VOMITING, # 9 tablet, 0 Refills, 07/24/20 14:41:00 EST, [facility]/pharmacy #[id number], 185, cm, 06/15/20 13:02:00 EST, Height Start Date: 07/24/20 Status: Ordered SEROquel 25 mg oral tablet 50 mg, 2, tablet, By Mouth, Every 8 hours, PRN, # 14 tablet, Refills 0, Tot. Refills 0, Maintenance, Agitation, 10/04/20 15:19:00 EDT, Route to Pharmacy Electronically, [facility], Partial fill upon patient request if the prescription is... Start Date: 10/04/20 Status: Ordered Suboxone 4 mg-1 mg sublingual film 3 film, Sublingual, Daily, [id number] Scavron dissolve under the tongue DUE 09/12/2020, # 21 film, 0 Refills, Maintenance, 10/04/20 15:17:00 EDT, Film, [facility], 3 film Sublingual Daily,x7 days,Instr:[id number] Scavron; dissolve under t... Start Date: 10/04/20 Stop Date: 10/11/20 Status: Ordered Suboxone 4 mg-1 mg sublingual film 1 film, Sublingual, 3 times a day, dissolve under the tongue, # 9 film, 0 Refills, Maintenance, 10/04/20 16:01:00 EDT, Film, [facility], Partial fill upon patient request if the prescription is for a schedule II opioid drug. [id number], 1... Start Date: 10/04/20 Status: Ordered thiamine 100 mg oral tablet 100 mg, 1, tablet, By Mouth, Daily, for 30 days, # 30 tablet, Refills 0, Tot. Refills 0, Acute 11/03/20 15:19:00 EDT, 10/04/20 15:19:00 EDT, Route to Pharmacy Electronically, [facility], Partial fill upon patient request if the prescript... Start Date: 10/04/20 Stop Date: 11/03/20 Status: Ordered traZODone 50 mg oral tablet 50 mg, 1, tablet, By Mouth, Daily at bedtime, PRN, # 10 tablet, Refills 0, Tot. Refills 0, Maintenance, Insomnia, 10/04/20 15:19:00 EDT, Route to Pharmacy Electronically, [facility] 3, Partial fill upon patient request [...]
--- OUTSIDE RECORDS SUMMARY | 2023-06-20 11:44 | XMS_ITS | Continuity of Care Document ---
Author Name Unknown Organization [facility] Address Unknown Care Team Providers Care Locum Tenens Psychiatrist Name Role Phone Mykel Marquis MD Primary Care Physician Encounter [facility] [place] Date(s): 08/28/21 - 09/04/21 [facility] Attending Physician: Heide Sheikh MD Allergies, Adverse Reactions, Alerts No Known [...] MOUTH DAILY, # 30 capsule, 0 Refills, [email or web address] #[id number], 185, cm, 12/28/20 15:45:00 EDT, Height Start [...] 0 Refills, Soft Stop, 08/16/21 12:26:00 EDT, [facility], Partial fill upon patient request [...] Most recent to oldest [Reference Range]: 1 Height 186 cm (08/28/21 9:48 AM) Weight 121.2 kg (08/28/21 9:48 AM) Pulse Rate [55-90 bpm] 76 bpm (08/28/21 9:48 AM) Body Mass Index [18.5-24.99] 35.03 *>HHI* (08/28/21 9:48 AM) Blood Pressure [90-138/55-84 mm Hg] 135/ 79mm Hg (08/28/21 9:48 AM) Temperature [96.8-100.4 DegF] 98.6 DegF (08/28/21 9:48 AM) Blood pressure sites Arm, right (08/28/21 9:48 AM) Temperature Route Temporal (08/28/21 9:48 AM) Weight Obtained Via Standing scale (08/28/21 9:48 AM) Social History Social History Type Response Tobacco Use: 4 or less cigar ettes(less than 1/4 pack)/day in last 30 days. Other: Vapes. Tobacco user in household: No. Sex
--- OUTSIDE RECORDS SUMMARY | 2023-06-20 11:44 | XMS_ITS | Continuity of Care Document ---
Author Name Unknown Organization [facility] Address Unknown Care Team Providers Care Ground Crewman Mission Support Name Role Phone Mykel Marquis MD Primary Care Phys[id number] Date(s): 12/28/20 - 03/03/21 [facility] Attending Physician: Mykel Marquis MD Admitting [...] Replace Required Details, Route to Pharmacy Electronically, [facility] #[id number], 185, cm, 12/28/20 15:45:00 EDT, Height Start Date: 01/25/21 Status: Ordered cloNIDine 0.1 mg oral tablet 0.1 mg, 1, tablet, By Mouth, 2 times a day, # 60 tablet, Refills 0, Tot. Refills 0, Maintenance, 12/28/20 15:58:00 EDT, Route to Pharmacy Electronically, [facility] #[id number], Partial fill upon patient request if the prescription is for a sched... Start Date: 12/28/20 Stop Date: 01/27/21 Status: Ordered duloxetine 30 mg oral enteric coated capsule See Instructions, TAKE 1 CAPSULE BY MOUTH DAILY, # 30 capsule, 0 Refills, [facility] #[id number], 185, cm, 12/28/20 15:45:00 EDT, Height Start Date: 01/25/21 Status: Ordered duloxetine 30 mg oral enteric coated capsule 1 capsule = 30 mg, By Mouth, Daily, # 30 capsule, 0 Refills, Maintenance, 12/28/20 15:58:00 EDT, Capsule, [facility] #[id number], Partial fill upon patient request if the prescription is for a schedule II opioid drug., 185, cm, 12/28/20 15:45:00... Start Date: 12/28/20 Status: Ordered gabapentin 300 mg oral capsule 1, capsule, By Mouth, 3 times a day, # 270 capsule, Refills 1, Tot. Refills 0, Maintenance, 12/06/20 8:24:00 EDT, Route to Pharmacy Electronically, [id number], 185, cm, 10/04/20 11:41:00 EDT, Height Start Date: 12/06/20 Status: Ordered omeprazole 40 mg oral enteric coated capsule 1 capsule = 40 mg, By Mouth, Daily, # 90 capsule, 2 Refills, Maintenance, 12/21/19 22:04:00 EDT, ECCapsule, [facility]/pharmacy #[id number], 185, cm, 08/01/19 11:16:00 EST, Height Start Date: 12/21/19 Stop Date: 09/16/20 Status: Ordered ondansetron 4 mg oral tablet See Instructions, TAKE 1 TABLET BY MOUTH EVERY 8 HOURS NEEDED FOR NAUSEA AND VOMITING, # 9 tablet, 0 Refills, 07/24/20 14:41:00 EST, [facility]/pharmacy #[id number], 185, cm, 06/15/20 13:02:00 EST, Height Start Date: 07/24/20 Status: Ordered SEROquel 50 mg oral tablet 2 tablet = 100 mg, By Mouth, 2 times a day, # 120 tablet, 0 Refills, Maintenance, 02/01/21 13:13:00EDT, [id number], Partial fill upon patient request if the [...]
--- OUTSIDE RECORDS SUMMARY | 2023-06-20 11:44 | XMS_ITS | Continuity of Care Document ---
Author Name Unknown Organization [facility] Address [address] [place] [address]- Care Team Providers Care Local Company Hazmat Driver Name Role Phone Mykel Marquis MD Primary Care Physician En[place] [facility] [place] Date(s): 09/02/19 - 09/09/19 [facility] [address] [address]- [facility] Attending Physician: Mykel Marquis MD Allergies, Adverse Reactions, [...] Maintenance,09/02/19 14:13:00 EDT, Route to Pharmacy Electronically, [facility], 185, cm, 08/01/19 11:16:00 EST, Height Start Date: 09/02/19 Status: Ordered hydrOXYzine hydrochloride 50 mg oral tablet 1 tablet = 50 mg, By Mouth, 2 times a day, # 60 capsule, 2 Refills, Acute 10/01/20 13:47:00 EDT, 09/02/19 14:13:00 EDT, [facility], 185, cm, 08/01/19 11:16:00 EST, [...] 1 film, Sublingual, Daily, masspat verified Scavron [id number] dissolve under the tongue fill on/after 09/14/2019, # 28 film, 0 Refills, Maintenance, 09/02/19 14:14:00 EDT, Film, [facility], 1 film Sublingual Daily,x28 days,Instr:ma... Start Date: 09/02/19 Stop Date: 09/30/19 Status: Ordered Zofran 4 mg oral tablet 1 tablet = 4 mg, By Mouth, Every 8 hours, PRN Nausea & Vomiting, # 10 tablet, 1 Refills, Maintenance, 09/09/19 16:03:00 EDT, Tablet, [facility], 185, cm, 08/01/19 11:16:00 EST, Height Start Date: 09/09/19 Status: Ordered Problem List Condition Effective Dates Status Health Status Inform ant Opioid dependence(Confirmed) Active
--- OUTSIDE RECORDS SUMMARY | 2023-06-20 11:44 | XMS_ITS | Continuity of Care Document ---
Author Name Unknown Organization [facility] Address [address] [place] [address]- Care Team Providers Care Angle Shear Operator Name Role Phone Mykel Marquis MD Primary Care Physician [place] [facility] [place] 11/19/19 [facility]/[address] [address]- [facility] Attending Physician: Mykel Marquis MD Admitting [...] Maintenance,09/02/19 14:13:00 EDT, Route to Pharmacy Electronically, [facility], 185, cm, 08/01/19 11:16:00 EST, Height Start Date: 09/02/19 Status: Ordered hydrOXYzine hydrochloride 50 mg oral tablet 1 tablet = 50 mg, By Mouth, 2 times a day, # 60 capsule, 2 Refills, Acute 10/01/20 13:47:00 EDT, 09/02/19 14:13:00 EDT, [facility], 185, cm, 08/01/19 11:16:00 EST, Height Start Date: 09/02/19 Stop Date: 10/01/20 Status: Ordered omeprazole 40 mg oral enteric coated capsule 1 capsule = 40 mg, By Mouth, Daily, # 90 capsule, 0 Refills, Maintenance, 11/14/19 17:54:00 EDT, ECCapsule, [facility]/pharmacy #[id number], 185, cm, 08/01/19 11:16:00 EST, Height Start Date: 11/14/19 Status: Ordered ondansetron 4 mg oral tablet 1 tablet, By Mouth, Every 8 hours, PRN NEEDED FOR NAUSEA AND VOMITING, # 10 tablet, 1 Refills, Maintenance, 11/14/19 17:54:00 EDT, [facility]/pharmacy #[id number], 185, cm, 08/01/19 11:16:00 EST, Height Start Date: 11/14/19 Stop Date: 11/24/19 Status: Ordered Remeron 15 mg oral tablet 1 tablet = 15 mg, By Mouth, Daily at bedtime, # 30 tablet, 3 Refills, Maintenance, 08/17/19 12:07:00 EDT, Tablet, [facility], 185, cm, 08/01/19 11:16:00 EST, Height Start Date: 08/17/19 Status: Ordered Suboxone 8 mg-2 mg sublingual film 1 film, Sublingual, Daily, masspat verified Scavron [id number] dissolve under the tongue fill on/after 11/07/2019, # 28 film, 0 Refills, Maintenance, 11/07/19 10:31:00 EDT, Film, [facility]/pharmacy #1003, 1film Sublingual Daily,x28 days,Instr:masspat v... Start Date: 11/07/19 Stop Date: 12/05/19 Status: Ordered Problem List Condition Effective Dates Status Health Status Inform ant Opioid dependence(Confirmed) Active
--- OUTSIDE RECORDS SUMMARY | 2023-06-20 11:44 | XMS_ITS | Continuity of Care Document ---
Author Name Unknown Organization [facility] Address [address] [place] [address]- Care Team Providers Care Solder Technician Name Role Phone Mykel Marquis MD Primary Care Physician [place] [facility] [place] Date(s): 08/26/19 - 10/15/19 [facility]/[address] [address]- [facility] Attending Physician: Mykel aMrquis MD Admitting Physician: Mykel Marquis MD Allergies, [...] Maintenance,09/02/19 14:13:00 EDT, Route to Pharmacy Electronically, [facility], 185, cm, 08/01/19 11:16:00 EST, Height Start Date: 09/02/19 Status: Ordered hydrOXYzine hydrochloride 50 mg oral tablet 1 tablet = 50 mg, By Mouth, 2 times a day, # 60 capsule, 2 Refills, Acute 10/01/20 13:47:00 EDT, 09/02/19 14:13:00 EDT, [facility], 185, cm, 08/01/19 11:16:00 EST, Height Start Date: 09/02/19 Stop Date: 10/01/20 Status: Ordered omeprazole 20 mg oral delayed release tablet 1 tablet = 20 mg, By Mouth, Daily, # 30 tablet, 1 Refills, Maintenance, 10/10/19 17:29:00 EDT, [facility]/pharmacy #[id number], 185, cm, 08/01/19 11:16:00 EST, Height Start Date: 10/10/19 Status: Ordered Remeron 15 mg oral tablet 1 tablet = 15 mg, By Mouth, Daily at bedtime, # 30 tablet, 3 Refills, Maintenance, 08/17/19 12:07:00 EDT, Tablet, [facility], 185, cm, 08/01/19 11:16:00 EST, Height Start Date: 08/17/19 Status: Ordered Suboxone 8 mg-2 mg sublingual film 1 film, Sublingual, Daily, masspat verified Scavron [id number] dissolve under the tongue fill on/after 10/12/2019, # 28 film, 0 Refills, Maintenance, 10/10/19 18:35:00 EDT, Film, [facility]/pharmacy #1003, 1film Sublingual Daily,x28 days,Instr:masspat v... Start Date: 10/10/19 Stop Date: 11/07/19 Status: Ordered Zofran 4 mg oral tablet 1 tablet = 4 mg, By Mouth, Every 8 hours, PRN Nausea & Vomiting, # 10 tablet, 1 Refills, Maintenance, 10/10/19 17:23:00 EDT, Tablet, [facility]/pharmacy #[id number], 185, cm, 08/01/19 11:16:00 EST, Height Start Date: 10/10/19 Status: Ordered Problem List Condition Effective Dates Status Health Status Inform ant Opioid dependence(Confirmed) Active
--- OUTSIDE RECORDS SUMMARY | 2023-06-20 11:44 | XMS_ITS | Continuity of Care Document ---
Author Name Unknown Organization [facility] Address [address] [place] [address]- Care Team Providers Care Supplier Quality Engineer Name Role Phone Mykel Marquis MD Primary Care Physician En[place] [facility] [place] Date(s): 09/09/19 - 09/16/19 [facility] [address] [address]- [place] Attending Physician: Mykel Maruqis MD Allergies, Adverse Reactions, Alerts Substance Reaction [...] Maintenance,09/02/19 14:13:00 EDT, Route to Pharmacy Electronically, [facility], 185, cm, 08/01/19 11:16:00 EST, Height Start Date: 09/02/19 Status: Ordered hydrOXYzine hydrochloride 50 mg oral tablet 1 tablet = 50 mg, By Mouth, 2 times a day, # 60 capsule, 2 Refills, Acute 10/01/20 13:47:00 EDT, 09/02/19 14:13:00 EDT, [facility], 185, cm, 08/01/19 11:16:00 EST, Height Start Date: 09/02/19 Stop Date: 10/01/20 Status: Ordered Remeron 15 mg oral tablet 1 tablet = 15 mg, By Mouth, Daily at bedtime, # 30 tablet, 3 Refills, Maintenance, 08/17/19 12:07:00 EDT, Tablet, [facility], 185, cm, 08/01/19 11:16:00 EST, Height Start Date: 08/17/19 Status: Ordered Suboxone 8 mg-2 mg sublingual film 1 film, Sublingual, Daily, masspat verified Scavron [id number] dissolve under the tongue fill on/after 09/14/2019, # 28 film, 0 Refills, Maintenance, 09/15/19 11:46:00 EDT, Film, [facility]/pharmacy #[id number], 1film Sublingual Daily,x28 days,Instr:masspat v... Start Date: 09/15/19 Stop Date: 10/13/19 Status: Ordered Zofran 4 mg oral tablet 1 tablet = 4 mg, By Mouth, Every 8 hours, PRN Nausea & Vomiting, # 10 tablet, 1 Refills, Maintenance, 09/09/19 16:03:00 EDT, Tablet, [facility], 185, cm, 08/01/19 11:16:00 EST, Height Start Date: 09/09/19 Status: Ordered Problem List Condition Effective Dates Status Health Status Inform ant Opioid dependence(Confirmed) Active
--- OUTSIDE RECORDS SUMMARY | 2023-06-20 11:44 | XMS_ITS | Continuity of Care Document ---
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 Refills 0, Maintenance, 10/04/20 15:18:00 EDT, Route to Pharmacy Electronically, [facility], Partial fill upon patient request if the prescription is for a schedul... Start Date: 10/04/20 Status: Ordered duloxetine 30 mg oral enteric coated capsule 1 capsule = 30 mg, By Mouth, Daily, # 30 capsule, 0 Refills, Maintenance, 10/04/20 15:18:00 EDT, Capsule, [facility], Partial fill upon patient request if the prescription is for a schedule II opioid drug., 185, cm, 10/04/20 11:41:00 EDT... Start Date: 10/04/20 Status: Ordered gabapentin 300 mg oral capsule 300 mg, 1, capsule, By Mouth, 3 times a day, # 270 capsule, Refills 5, Tot. Refills 5, Maintenance,10/04/20 15:18:00 EDT, Route to Pharmacy Electronically, [facility], 185, cm, 10/04/20 11:41:00 EDT, Height Start Date: 10/04/20 Status: Ordered omeprazole 40 mg oral enteric coated capsule 1 capsule = 40 mg, By Mouth, Daily, # 90 capsule, 2 Refills, Maintenance, 12/21/19 22:04:00 EDT, ECCapsule, [facility]/pharmacy #[id number], 185, cm, 08/01/19 11:16:00 EST, Height Start Date: 12/21/19 Stop Date: 09/16/20 Status: Ordered ondansetron 4 mg oral tablet See Instructions, TAKE 1 TABLET BY MOUTH EVERY 8 HOURS NEEDED FOR NAUSEA AND VOMITING, # 9 tablet, 0 Refills, 07/24/20 14:41:00 EST, [facility]/pharmacy #[id number], 185, cm, 06/15/20 13:02:00 EST, Height Start Date: 07/24/20 Status: Ordered SEROquel 25 mg oral tablet 50 mg, 2, tablet, By Mouth, Every 8 hours, PRN, # 14 tablet, Refills 0, Tot. Refills 0, Maintenance, Agitation, 10/04/20 15:19:00 EDT, Route to Pharmacy Electronically, [facility], Partial fill upon patient request if the prescription is... Start Date: 10/04/20 Status: Ordered Suboxone 4 mg-1 mg sublingual film 3 film, Sublingual, Daily, [id number] Scavron dissolve under the tongue DUE 09/12/2020, # 21 film, 0 Refills, Maintenance, 10/04/20 15:17:00 EDT, Film, [facility], 3 film Sublingual Daily,x7 days,Instr:[id number] Scavron; dissolve under t... Start Date: 10/04/20 Stop Date: 10/11/20 Status: Ordered Suboxone 4 mg-1 mg sublingual film 1 film, Sublingual, 3 times a day, dissolve under the tongue, # 9 film, 0 Refills, Maintenance, 10/04/20 16:01:00 EDT, Film, [facility], Partial fill upon patient request if the prescription is for a schedule II opioid drug. [id number], 1... Start Date: 10/04/20 Status: Ordered traZODone 50 mg oral tablet 50 mg, 1, tablet, By Mouth, Daily at bedtime, PRN, # 10 tablet, Refills 0, Tot. Refills 0, Maintenance, Insomnia, 10/04/20 15:19:00 EDT, Route to Pharmacy Electronically, [facility], Partial fill upon patient request [...]
--- NOTE | 2023-06-20 12:58 | PC.NURSE ---
patient resting in stretcher in front of nurses tstation has sitter 1:1, patient has remained calm and cooperative, changed over into hospital gown and pants. patients mom is at bedside
[2023-06-20 14:51] VITALS: BP 124/78; PULSE 56; RESP 18; O2SAT 100
--- NOTE | 2023-06-20 18:18 | MHC.EDTECH ---
Patient given dinner tray
--- NOTE | 2023-06-20 18:36 | PHA.MEDREC ---
Pharmacy Consult ? Medication Reconciliation Pharmacy has completed the medication reconciliation. Reviewed med rec done by nursing
[2023-06-20] MEDS: Lithium Carbonate ER 450 MG TABLET.ER PO (20:25)
[2023-06-20] MEDS: Mirtazapine 15 MG TABLET PO (20:25)
[2023-06-20] MEDS: clonazePAM 1 MG TABLET PO (20:25)
[2023-06-20] MEDS: chlorproMAZINE HCl 25 MG TABLET PO (20:27)
[2023-06-20 20:41] VITALS: BP 119/77; PULSE 68; RESP 18; TEMP 36.4; O2SAT 98
--- NOTE | 2023-06-20 23:45 | PC.NURSE ---
Took report from off-going RN. Pt is a 23 y/o male here for increased aggression at home. Pt has been seen by the care team. Pt is cooperative and easily arousable with verbal stimuli. Changes position as desired and verbalizes needs. Will continue to monitor and continue regular safety checks.
--- NOTE | 2023-06-21 00:04 | PC.NURSE ---
Pt observed ambulating with a steady gait. Pt walked to the bathroom and then returned to his chair. No needs verbalized.
[2023-06-21 00:29] VITALS: BP 105/62; PULSE 60; RESP 12; O2SAT 96
--- NOTE | 2023-06-21 03:08 | PC.NURSE ---
Pt is awake and ambulatory. Walks to and from the bathroom without issue or concern, steady gait. Pt denies any needs at this time. Is calm and cooperative. No acute distress noted. Bed search is ongoing. Will continue to monitor and note any changes. Routine safety checks will continue.
--- NOTE | 2023-06-21 05:50 | PC.NURSE ---
Pt is sleeping on couch behind nurses station, appears comfortable. Changes positions independently as desired and verbalizes needs appropriately. Pt is easily arousable with verbal stimuli. Will continue to monitor and note any changes. Bed search is ongoing.
[2023-06-21 06:00] VITALS: BP 97/61; PULSE 56; RESP 12; O2SAT 98
[2023-06-21] MEDS: Omeprazole 20 MG CAPSULE.DR PO (06:57)
[2023-06-21] MEDS: clonazePAM 1 MG TABLET PO ×2 (07:11→20:53)
--- NOTE | 2023-06-21 07:16 | PC.NURSE ---
VERIFIED METHADONE DOSE AT [facility] WITH MARLA BAER 140MG LAST DOSED YESTERDAY 06/20/23 AT 0723. FAXED VERIFICATION TO MD FRANSICO NOTIFIED FOR ORDER
--- NOTE | 2023-06-21 07:25 | HE.PHANOTE ---
RE: methadone Last dose verification from [facility] 06/20/23 for 140mg @0730
[2023-06-21] MEDS: methADONE HCl 20 MG/2 ML ORAL.CONC 140 MG PO (07:52)
[2023-06-21] MEDS: Venlafaxine HCl ER 37.5 MG CAP.ER.24H 112.5 MG PO (08:09)
[2023-06-21] MEDS: Lithium Carbonate ER 450 MG TABLET.ER PO ×2 (08:10→20:53)
--- NOTE | 2023-06-21 09:17 | ECG_ITS ---
Test Reason : QTC INTERVAL Blood Pressure : / mmHG Vent. Rate : 054 BPM Atrial Rate : 054 BPM P-R Int : 150 ms QRS Dur : 078 ms QT Int : 450 ms P-R-T Axes : 048 078 059 degrees QTc Int : 426 ms Sinus bradycardia Otherwise normal ECG When compared with ECG of 01-MAY-2023 15:00, No significant change was found Referred By: Generic ED Physician Electronically Signed By:Roman Shaffer
[2023-06-21 18:00] VITALS: BP 130/70; PULSE 76; TEMP 35.9; O2SAT 100
[2023-06-21] MEDS: Mirtazapine 15 MG TABLET PO (20:53)
[2023-06-21] MEDS: chlorproMAZINE HCl 25 MG TABLET PO (20:55)
[2023-06-21] MEDS: Nicotine Polacrilex 2 MG GUM 4 MG BUCCAL (20:59)
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
[2023-06-22 06:00] VITALS: BP 137/74; PULSE 55; RESP 16; TEMP 36.1; O2SAT 98
[2023-06-22] MEDS: Omeprazole 20 MG CAPSULE.DR PO (06:31)
[2023-06-22] MEDS: Venlafaxine HCl ER 37.5 MG CAP.ER.24H 112.5 MG PO (08:10)
[2023-06-22] MEDS: Lithium Carbonate ER 450 MG TABLET.ER PO ×2 (08:10→19:57)
[2023-06-22] MEDS: clonazePAM 1 MG TABLET PO ×2 (08:11→18:11)
[2023-06-22] MEDS: chlorproMAZINE HCl 25 MG TABLET PO ×2 (08:11→19:57)
[2023-06-22] MEDS: methADONE HCl 20 MG/2 ML ORAL.CONC 140 MG PO (08:46)
[2023-06-22] MEDS: Nicotine Polacrilex 2 MG GUM 4 MG BUCCAL ×5 (08:48→22:09)
[2023-06-22 10:03] LABS: Estimated Average Glucose 94 mg/dL; Hemoglobin A1c % 4.9 % (<6.0)
[2023-06-22 10:17] LABS: Cholesterol 208 mg/dL (<200); HDL Cholesterol 35 mg/dL (>40); LDL Cholesterol Calculated 123 mg/dL (<100); Triglycerides 251 mg/dL (<150)
--- NOTE | 2023-06-22 10:17 | HO.PSYCHPN ---
Subjective Subjective Reason For Visit: Disorganized Diagnostics Vital Signs (24Hr): Vital Signs - 24 hr 06/21/23 18:00 06/22/23 06:00 Temperature 96.7 F L 96.9 F Pulse Rate 76 55 Respiratory Rate 16 Blood Pressure 130/70 137/74 Pulse Oximetry 100 98 Oxygen Delivery Method Room Air Room Air BMI result Body Mass Index 33.6 Labs 06/20/23 11:02 06/20/23 11:02 Labs: Laboratory Results - last 48 hr 06/20/23 06/22/23 11:02 09:12 WBC 7.8 RBC 4.36 L Hgb 13.1 L Hct 39.4 L MCV 90.4 MCH 30.0 MCHC 33.2 RDW 13.7 Plt Count 139 L MPV 11.9 Immature Gran % (Auto) 0.4 Neut % (Auto) 63.8 Lymph % (Auto) 26.1 [place] % (Auto) 5.1 Eos % (Auto) 3.7 Baso % (Auto) 0.9 Lymph # (Auto) 2.0 [place] # (Auto) 0.4 Eos # (Auto) 0.3 Baso # (Auto) 0.1 Abs Immat Gran (auto) 0.03 Absolute Neuts (auto) 5.0 Absolute Nucleated RBC 0.000 Nucleated RBC % (auto) 0.0 Sodium 140 Potassium 3.6 Chloride 106 Carbon Dioxide 25 Anion Gap 13 BUN 13 Creatinine 0.94 Estim Creat Clear Calc 160.0 Estimated GFR > 60 Random Glucose 134 H Estimat Average Glucose 94 Hemoglobin A1c % 4.9 Calcium 9.3 D Urine Color Yellow Urine Appearance Clear Urine pH 6.5 Ur Specific [place] 1.020 Urine Protein Negative Urine Glucose (UA) Negative Urine Ketones Trace Urine Blood Negative Urine Nitrite Negative Ur Leukocyte Esterase Negative Salicylates < 5.0 L Urine Opiates Screen Not Detected Urine Fentanyl Screen Not Detected Acetaminophen < 3 Ur Barbiturates Screen Not Detected Ur Phencyclidine Scrn Not Detected Ur Amphetamines Screen Not Detected U Benzodiazepines Scrn POSITIVE H Urine Cocaine Screen Not Detected U Marijuana (THC) Screen POSITIVE H Ethyl Alcohol < 10 COVID-19 ([facility]) Negative COVID-19 Clin Com See Note Medications Medications Current Medications Acetaminophen (Acetaminophen 325 Mg Tablet) 650 mg PO Q6H PRN PRN Reason: Headache/Pain Mild Scale (1-3) Al Hydroxide/Mg Hydroxide (Magnesium Hydrox/Alum Hydrox 30 Ml Oral.Susp) 30 ml PO Q6H PRN PRN Reason: Heartburn/Nausea Chlorpromazine HCl (Chlorpromazine Hcl 25 Mg Tablet) 25 mg PO BID PRN PRN Reason: nausea. severe anxiety Last Admin: 06/22/23 08:11 Dose: 25 mg Clonazepam (Clonazepam 1 Mg Tablet) 1 mg PO BID PRN PRN Reason: Anxiety Last Admin: 06/22/23 08:11 Dose: 1 mg Hydroxyzine HCl (Hydroxyzine Hcl 25 Mg Tablet) 25 mg PO Q6H PRN PRN Reason: Anxiety Riva Carbonate (Riva Carbonate Er 450 Mg Tablet.Er) 450 mg PO BID [facility] Last Admin: 06/22/23 08:10 Dose: 450 mg Magnesium Hydroxide (Milk Of Magnesia 30 Ml Oral.Susp) 30 ml PO DAILY PRN PRN Reason: Constipation Methadone HCl (Methadone Hcl 20 Mg/2 Ml Oral.Conc) 140 mg PO DAILY [facility] Last Admin: 06/22/23 08:46 Dose: 140 mg Mirtazapine (Mirtazapine 15 Mg Tablet) 15 mg PO BEDTIME [facility] Last Admin: 06/21/23 20:53 Dose: 15 mg Nicotine (Nicotine 21 Mg Patch.Td24) 21 mg TRANSDERMA DAILY PRN PRN Reason: smoking cessation Nicotine Polacrilex (Nicotine Polacrilex 2 Mg Gum) 4 mg BUCCAL Q2H PRN PRN Reason: Nicotine Cravings Last Admin: 06/22/23 08:48 Dose: 4 mg Olanzapine (Olanzapine 5 Mg Tablet) 5 mg PO TID PRN PRN Reason: agitation Omeprazole (Omeprazole 20 Mg Capsule.Dr) 20 mg PO DAILY@0630 [facility] Last Admin: 06/22/23 06:31 Dose: 20 mg Trazodone HCl (Trazodone Hcl 50 Mg Tablet) 50 mg PO BEDTIME MRX1 PRN PRN Reason: Insomnia Venlafaxine HCl (Venlafaxine Hcl Er 37.5 Mg Cap.Er.24h) 112.5 mg PO DAILY [facility] Last Admin: 06/22/23 08:10 Dose: 112.5 mg Allergies Allergies Allergy/AdvReac Type Severity Reaction Status Date / Time No Known Allergies Allergy Verified 01/12/21 14:30 [No Known Allergies*] Assessment & Plan Time Spent With Patient Time: Total time managing care of this patient today ____ minutes.
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
[2023-06-22] MEDS: Propranolol HCL 10 MG TABLET 5 MG PO (16:19)
[2023-06-22 18:00] VITALS: BP 129/72; PULSE 62; RESP 17; TEMP 36.4; O2SAT 98
[2023-06-22] MEDS: Mirtazapine 15 MG TABLET PO (19:57)
[2023-06-23] MEDS: Omeprazole 20 MG CAPSULE.DR PO (05:56)
[2023-06-23 07:43] VITALS: BP 98/56; PULSE 54; RESP 16; TEMP 36.8; O2SAT 98
[2023-06-23] MEDS: clonazePAM 1 MG TABLET PO ×3 (08:14→20:17)
[2023-06-23] MEDS: methADONE HCl 20 MG/2 ML ORAL.CONC 140 MG PO (08:14)
[2023-06-23] MEDS: Venlafaxine HCl ER 37.5 MG CAP.ER.24H 112.5 MG PO (08:14)
[2023-06-23] MEDS: chlorproMAZINE HCl 25 MG TABLET PO ×2 (08:14→20:10)
[2023-06-23] MEDS: Lithium Carbonate ER 450 MG TABLET.ER PO ×2 (08:14→20:10)
[2023-06-23] MEDS: Nicotine Polacrilex 2 MG GUM 4 MG BUCCAL ×4 (08:19→20:10)
[2023-06-23 08:22] LABS: Lithium 0.56 mmol/L (0.60-1.20)
--- NOTE | 2023-06-23 13:53 | P.PNPSI_ITS ---
Subjective Subjective Date of Service: 06/24/23 Reason For Visit: Disorganized Subjective Notes: Conditional Voluntary Healthcare Proxy: No Guardianship: No Medical Problems Affecting Mental Status: No Interim History: Discussed programs with pt and Kelvin KITCHEN. Alix Keene, [facility] Case Mgt reviewed. Full med review. Anxiety still primary sx. Will trial propranolol. Medication Compliance: Yes Side effects from medications: No Attending Groups: Intermittent Review of Systems Acute medical concerns: No Medical Review of Systems: unchanged Review of Systems Review of Systems Yes all other systems are reviewed and are negative Mental Status Exam Mental Status Exam Patient Appearance: Appropriate Patient Orientation: Person, Place, Time and Situation Level of Consciousness: Alert Patient Behavior: Appropriate, Talkative, Anxious and Good Eye Contact Mood Description: Anxious Affect Description: Anxious Patient Cognition Impaired: No Ability to Follow Directions: Fair Speech Pattern: Clear, Perseverating and Soft-Spoken Memory Description: Intact Hallucinations: None Delusions: Not Present Perceptual Disturbances: Derealization Thought Process: Rumination Thought Content: positive for Perseveration Depressive Symptoms: Increased Anxiety and Thoughts of /Suicide Judgement: Fair Diagnostics Vital Signs (24Hr): Vital Signs - 24 hr 06/22/23 18:00 06/23/23 07:43 Temperature 97.6 F 98.2 F Pulse Rate 62 54 Respiratory Rate 17 16 Blood Pressure 129/72 98/56 L Pulse Oximetry 98 98 Oxygen Delivery Method Room Air Room Air BMI result Body Mass Index 33.6 Labs 06/20/23 11:02 06/20/23 11:02 Labs: Laboratory Results - last 48 hr 06/22/23 06/23/23 09:12 08:00 Estimat Average Glucose 94 Hemoglobin A1c % 4.9 Triglycerides 251 H Cholesterol 208 H LDL Cholesterol, Calc 123 H HDL Cholesterol 35 L [place] 0.56 L Medications Medications Current Medications Acetaminophen (Acetaminophen 325 Mg Tablet) 650 mg PO Q6H PRN PRN Reason: Headache/Pain Mild Scale (1-3) Al Hydroxide/Mg Hydroxide (Magnesium Hydrox/Alum Hydrox 30 Ml Oral.Susp) 30 ml PO Q6H PRN PRN Reason: Heartburn/Nausea Chlorpromazine HCl (Chlorpromazine Hcl 25 Mg Tablet) 25 mg PO BID PRN PRN Reason: nausea. severe anxiety Last Admin: 06/23/23 08:14 Dose: 25 mg Clonazepam (Clonazepam 1 Mg Tablet) 1 mg PO BID PRN PRN Reason: Anxiety Last Admin: 06/23/23 08:14 Dose: 1 mg Hydroxyzine HCl (Hydroxyzine Hcl 25 Mg Tablet) 25 mg PO Q6H PRN PRN Reason: Anxiety [place] Carbonate ([place] Carbonate Er 450 Mg Tablet.Er) 450 mg PO BID [facility] Last Admin: 06/23/23 08:14 Dose: 450 mg Magnesium Hydroxide (Milk Of Magnesia 30 Ml Oral.Susp) 30 ml PO DAILY PRN PRN Reason: Constipation Methadone HCl (Methadone Hcl 20 Mg/2 Ml Oral.Conc) 140 mg PO DAILY [facility] Last Admin: 06/23/23 08:14 Dose: 140 mg Mirtazapine (Mirtazapine 15 Mg Tablet) 15 mg PO BEDTIME [facility] Last Admin: 06/22/23 19:57 Dose: 15 mg Nicotine (Nicotine 21 Mg Patch.Td24) 21 mg TRANSDERMA DAILY PRN PRN Reason: smoking cessation Nicotine Polacrilex (Nicotine Polacrilex 2 Mg Gum) 4 mg BUCCAL Q2H PRN PRN Reason: Nicotine Cravings Last Admin: 06/23/23 10:24 Dose: 4 mg Olanzapine (Olanzapine 5 Mg Tablet) 5 mg PO TID PRN PRN Reason: agitation Omeprazole (Omeprazole 20 Mg Capsule.Dr) 20 mg PO DAILY@0630 [facility] Last Admin: 06/23/23 05:56 Dose: 20 mg Trazodone HCl (Trazodone Hcl 50 Mg Tablet) 50 mg PO BEDTIME MRX1 PRN PRN Reason: Insomnia Venlafaxine HCl (Venlafaxine Hcl Er 37.5 Mg Cap.Er.24h) 112.5 mg PO DAILY [facility] Last Admin: 06/23/23 08:14 Dose: 112.5 mg Allergies Allergies Allergy/AdvReac Type Severity Reaction Status Date / Time No Known Allergies Allergy Verified 01/12/21 14:30 [No Known Allergies*] Assessment & Plan Assessment & Plan (1) Severe benzodiazepine use disorder: Status: Acute Code(s): F13.20 - Sedative, hypnotic or anxiolytic dependence, uncomplicated (2) Anxiety: Status: Acute Code(s): F41.9 - Anxiety disorder, unspecified (3) Severe mood disorder with psychotic features: Status: Acute Code(s): F39 - Unspecified mood [affective] disorder Plan 23 yo male, history of benzodiazepine dependence, anxiety, mood disorder, psychosis, brought in by family due to emergence of psychotic symptoms possibly in the context of benzodiazepine abuse and intoxication. Pt reports severe anxiety, with the worst times between [id number] daily. Father reports use is out of control, stating pt has recently taken $700 to purchase benzodiazepines prior to admission. Plan: Collateral contacts Re-establish regime Monitor sx Full milieu Propranolol 5 mg 1400. 06/23- Tolerating propranolol. Will titrate. Considering rehab programs. Patient educated on: medication risk/benefits Informed Consent: understands Reason for continued inpatient stay Substantial Risk for: rapid decompensation Time Spent With Patient Time: Total time managing care of this patient today ____ minutes.
[2023-06-23 18:00] VITALS: BP 131/87; PULSE 78; RESP 16; TEMP 37.1; O2SAT 98
[2023-06-23 20:08] VITALS: BP 131/80; PULSE 72
[2023-06-23] MEDS: hydrOXYzine HCL 25 MG TABLET PO (20:11)
[2023-06-23] MEDS: Propranolol HCL 10 MG TABLET 5 MG PO (20:11)
[2023-06-23] MEDS: Mirtazapine 15 MG TABLET PO (20:11)
[2023-06-24] MEDS: Omeprazole 20 MG CAPSULE.DR PO (05:54)
[2023-06-24 08:13] VITALS: PULSE 353; TEMP 36.9
[2023-06-24 08:14] VITALS: BP 128/81; PULSE 53; RESP 16; TEMP 36.9; O2SAT 99
[2023-06-24] MEDS: methADONE HCl 20 MG/2 ML ORAL.CONC 140 MG PO (08:41)
[2023-06-24] MEDS: Lithium Carbonate ER 450 MG TABLET.ER PO ×2 (08:43→20:17)
[2023-06-24 08:44] VITALS: PULSE 68
[2023-06-24] MEDS: Venlafaxine HCl ER 37.5 MG CAP.ER.24H 112.5 MG PO (08:44)
[2023-06-24] MEDS: clonazePAM 1 MG TABLET PO ×3 (08:44→20:17)
[2023-06-24] MEDS: chlorproMAZINE HCl 25 MG TABLET PO ×2 (08:44→20:16)
[2023-06-24] MEDS: Propranolol HCL 10 MG TABLET 5 MG PO ×2 (08:46→20:16)
[2023-06-24] MEDS: Nicotine Polacrilex 2 MG GUM 4 MG BUCCAL ×5 (08:47→20:35)
[2023-06-24 18:00] VITALS: BP 129/91; PULSE 85; RESP 18; TEMP 36.5; O2SAT 97
--- NOTE | 2023-06-24 19:05 | HO.PSYCHPN ---
Subjective Subjective Date of Service: 06/24/23 Reason For Visit: Disorganized Subjective Notes: Conditional Voluntary Healthcare Proxy: No Guardianship: No Medical Problems Affecting Mental Status: No Interim History: Care discussed with father. Pt is not welcome to return home. Family has applied for SSI. Will participate with medical paperwork for submission Pt looking at programs- [facility], [facility] Tolerating Propranolol Will increase Klonopin to tid Medication Compliance: Yes Side effects from medications: No Attending Groups: Yes Review of Systems Acute medical concerns: No Medical Review of Systems: unchanged Review of Systems Review of Systems Yes all other systems are reviewed and are negative Mental Status Exam Mental Status Exam Patient Appearance: Appropriate Patient Orientation: Person, Place, Time and Situation Level of Consciousness: Alert Patient Behavior: Appropriate, Talkative, Anxious and Good Eye Contact Mood Description: Anxious Affect Description: Anxious Patient Cognition Impaired: No Ability to Follow Directions: Fair Speech Pattern: Clear, Perseverating and Soft-Spoken Memory Description: Intact Hallucinations: None Delusions: Not Present Perceptual Disturbances: Derealization Thought Process: Rumination Thought Content: positive for Perseveration Depressive Symptoms: Increased Anxiety and Thoughts of /Suicide Judgement: Fair Diagnostics Vital Signs (24Hr): Vital Signs - 24 hr 06/23/23 20:08 06/24/23 08:13 06/24/23 08:14 Temperature 98.4 F 98.4 F Pulse Rate 72 353 H 53 Respiratory Rate 16 Blood Pressure 131/80 128/81 Pulse Oximetry 99 Oxygen Delivery Method Room Air 06/24/23 08:44 06/24/23 18:00 Temperature 97.7 F Pulse Rate 68 85 Respiratory Rate 18 Blood Pressure 129/91 H Pulse Oximetry 97 Oxygen Delivery Method Room Air BMI result Body Mass Index 33.6 Labs 06/20/23 11:02 06/20/23 11:02 Labs: Laboratory Results - last 48 hr 06/23/23 08:00 [place] 0.56 L Medications Medications Current Medications Acetaminophen (Acetaminophen 325 Mg Tablet) 650 mg PO Q6H PRN PRN Reason: Headache/Pain Mild Scale (1-3) Al Hydroxide/Mg Hydroxide (Magnesium Hydrox/Alum Hydrox 30 Ml Oral.Susp) 30 ml PO Q6H PRN PRN Reason: Heartburn/Nausea Chlorpromazine HCl (Chlorpromazine Hcl 25 Mg Tablet) 25 mg PO BID PRN PRN Reason: nausea, racing thoughts Clonazepam (Clonazepam 1 Mg Tablet) 1 mg PO TID [facility] Last Admin: 06/24/23 12:50 Dose: 1 mg Hydroxyzine HCl (Hydroxyzine Hcl 25 Mg Tablet) 25 mg PO Q6H PRN PRN Reason: Anxiety Last Admin: 06/23/23 20:11 Dose: 25 mg [place] Carbonate ([place] Carbonate Er 450 Mg Tablet.Er) 450 mg PO BID [facility] Last Admin: 06/24/23 08:43 Dose: 450 mg Magnesium Hydroxide (Milk Of Magnesia 30 Ml Oral.Susp) 30 ml PO DAILY PRN PRN Reason: Constipation Methadone HCl (Methadone Hcl 20 Mg/2 Ml Oral.Conc) 140 mg PO DAILY [facility] Last Admin: 06/24/23 08:41 Dose: 140 mg Mirtazapine (Mirtazapine 15 Mg Tablet) 15 mg PO BEDTIME [facility] Last Admin: 06/23/23 20:11 Dose: 15 mg Nicotine (Nicotine 21 Mg Patch.Td24) 21 mg TRANSDERMA DAILY PRN PRN Reason: smoking cessation Nicotine Polacrilex (Nicotine Polacrilex 2 Mg Gum) 4 mg BUCCAL Q2H PRN PRN Reason: Nicotine Cravings Last Admin: 06/24/23 18:45 Dose: 4 mg Olanzapine (Olanzapine 5 Mg Tablet) 5 mg PO TID PRN PRN Reason: agitation Omeprazole (Omeprazole 20 Mg Capsule.Dr) 20 mg PO DAILY@0630 [facility] Last Admin: 06/24/23 05:54 Dose: 20 mg Propranolol HCl (Propranolol Hcl 10 Mg Tablet) 5 mg PO BID [facility]; Protocol Last Admin: 06/24/23 08:46 Dose: 5 mg Trazodone HCl (Trazodone Hcl 50 Mg Tablet) 50 mg PO BEDTIME MRX1 PRN PRN Reason: Insomnia Venlafaxine HCl (Venlafaxine Hcl Er 37.5 Mg Cap.Er.24h) 112.5 mg PO DAILY [facility] Last Admin: 06/24/23 08:44 Dose: 112.5 mg Allergies Allergies Allergy/AdvReac Type Severity Reaction Status Date / Time No Known Allergies Allergy Verified 01/12/21 14:30 [No Known Allergies*] Assessment & Plan Assessment & Plan (1) Severe benzodiazepine use disorder: Status: Acute Code(s): F13.20 - Sedative, hypnotic or anxiolytic dependence, uncomplicated (2) Anxiety: Status: Acute Code(s): F41.9 - Anxiety disorder, unspecified (3) Severe mood disorder with psychotic features: Status: Acute Code(s): F39 - Unspecified mood [affective] disorder Plan 23 yo male, history of benzodiazepine dependence, anxiety, mood disorder, psychosis, brought in by family due to emergence of psychotic symptoms possibly in the context of benzodiazepine abuse and intoxication. Pt reports severe anxiety, with the worst times between [id number] daily. Father reports use is out of control, stating pt has recently taken $700 to purchase benzodiazepines prior to admission. Plan: Collateral contacts Re-establish regime Monitor sx Full milieu Propranolol 5 mg 1400. 06/24/22- Increase Klonopin to tid Increase Propranolol to bid Encourage program admission- pt is considering. Patient educated on: medication risk/benefits and therapeutic strategies Informed Consent: understands Reason for continued inpatient stay Substantial Risk for: rapid decompensation Time Spent With Patient Time: Total time managing care of this patient today ____ minutes.
[2023-06-24 20:14] VITALS: BP 137/86; PULSE 72
[2023-06-24] MEDS: Mirtazapine 15 MG TABLET PO (20:17)
[2023-06-24] MEDS: hydrOXYzine HCL 25 MG TABLET PO (20:17)
[2023-06-25] MEDS: Omeprazole 20 MG CAPSULE.DR PO (06:21)
[2023-06-25 07:00] VITALS: BMI 32.3
[2023-06-25 08:12] VITALS: BP 118/63; PULSE 80; RESP 16; TEMP 36.7; O2SAT 95
[2023-06-25] MEDS: methADONE HCl 20 MG/2 ML ORAL.CONC 140 MG PO (08:24)
[2023-06-25] MEDS: Propranolol HCL 10 MG TABLET 5 MG PO ×2 (08:25→20:45)
[2023-06-25] MEDS: clonazePAM 1 MG TABLET PO ×3 (08:25→20:45)
[2023-06-25] MEDS: Lithium Carbonate ER 450 MG TABLET.ER PO ×2 (08:25→20:45)
[2023-06-25] MEDS: Venlafaxine HCl ER 37.5 MG CAP.ER.24H 112.5 MG PO (08:25)
[2023-06-25] MEDS: Nicotine Polacrilex 2 MG GUM 4 MG BUCCAL ×4 (08:30→20:49)
[2023-06-25] MEDS: chlorproMAZINE HCl 25 MG TABLET PO ×2 (08:31→20:49)
--- NOTE | 2023-06-25 15:28 | P.PNPSI_ITS ---
Subjective Subjective Date of Service: 06/25/23 Reason For Visit: Disorganized Subjective Notes: Conditional Voluntary Healthcare Proxy: No Guardianship: No Medical Problems Affecting Mental Status: No Interim History: Pt reports some sx relief. Active in participating in [employer] application process, with concern they will change my meds when I get there Received SSI paperwork from his family-we are working on medical information for him. Medication Compliance: Yes Side effects from medications: No Attending Groups: Intermittent Review of Systems Acute medical concerns: No Medical Review of Systems: unchanged Review of Systems Review of Systems Yes all other systems are reviewed and are negative Mental Status Exam Mental Status Exam Patient Appearance: Appropriate Patient Orientation: Person, Place, Time and Situation Level of Consciousness: Alert Patient Behavior: Appropriate, Talkative, Anxious and Good Eye Contact Mood Description: Anxious Affect Description: Anxious Patient Cognition Impaired: No Ability to Follow Directions: Fair Speech Pattern: Clear, Perseverating and Soft-Spoken Memory Description: Intact Hallucinations: None Delusions: Not Present Perceptual Disturbances: Derealization Thought Process: Rumination Thought Content: positive for Perseveration Depressive Symptoms: Increased Anxiety and Thoughts of /Suicide Judgement: Fair Diagnostics Vital Signs (24Hr): Vital Signs - 24 hr 06/24/23 18:00 06/24/23 20:14 06/25/23 08:12 Temperature 97.7 F 98.0 F Pulse Rate 85 72 80 Respiratory Rate 18 16 Blood Pressure 129/91 H 137/86 118/63 Pulse Oximetry 97 95 Oxygen Delivery Method Room Air Room Air BMI result Body Mass Index 32.3 Labs 06/20/23 11:02 06/20/23 11:02 Medications Medications Current Medications Acetaminophen (Acetaminophen 325 Mg Tablet) 650 mg PO Q6H PRN PRN Reason: Headache/Pain Mild Scale (1-3) Al Hydroxide/Mg Hydroxide (Magnesium Hydrox/Alum Hydrox 30 Ml Oral.Susp) 30 ml PO Q6H PRN PRN Reason: Heartburn/Nausea Chlorpromazine HCl (Chlorpromazine Hcl 25 Mg Tablet) 25 mg PO BID PRN PRN Reason: nausea, racing thoughts Last Admin: 06/25/23 08:31 Dose: 25 mg Clonazepam (Clonazepam 1 Mg Tablet) 1 mg PO TID [facility] Last Admin: 06/25/23 14:15 Dose: 1 mg Hydroxyzine HCl (Hydroxyzine Hcl 25 Mg Tablet) 25 mg PO Q6H PRN PRN Reason: Anxiety Last Admin: 06/24/23 20:17 Dose: 25 mg [place] Carbonate ([place] Carbonate Er 450 Mg Tablet.Er) 450 mg PO BID [facility] Last Admin: 06/25/23 08:25 Dose: 450 mg Magnesium Hydroxide (Milk Of Magnesia 30 Ml Oral.Susp) 30 ml PO DAILY PRN PRN Reason: Constipation Methadone HCl (Methadone Hcl 20 Mg/2 Ml Oral.Conc) 140 mg PO DAILY [facility] Last Admin: 06/25/23 08:24 Dose: 140 mg Mirtazapine (Mirtazapine 15 Mg Tablet) 15 mg PO BEDTIME [facility] Last Admin: 06/24/23 20:17 Dose: 15 mg Nicotine (Nicotine 21 Mg Patch.Td24) 21 mg TRANSDERMA DAILY PRN PRN Reason: smoking cessation Nicotine Polacrilex (Nicotine Polacrilex 2 Mg Gum) 4 mg BUCCAL Q2H PRN PRN Reason: Nicotine Cravings Last Admin: 06/25/23 14:17 Dose: 4 mg Olanzapine (Olanzapine 5 Mg Tablet) 5 mg PO TID PRN PRN Reason: agitation Omeprazole (Omeprazole 20 Mg Capsule.Dr) 20 mg PO DAILY@0630 [facility] Last Admin: 06/25/23 06:21 Dose: 20 mg Propranolol HCl (Propranolol Hcl 10 Mg Tablet) 5 mg PO BID [facility]; Protocol Last Admin: 06/25/23 08:25 Dose: 5 mg Trazodone HCl (Trazodone Hcl 50 Mg Tablet) 50 mg PO BEDTIME MRX1 PRN PRN Reason: Insomnia Venlafaxine HCl (Venlafaxine Hcl Er 37.5 Mg Cap.Er.24h) 112.5 mg PO DAILY [facility] Last Admin: 06/25/23 08:25 Dose: 112.5 mg Allergies Allergies Allergy/AdvReac Type Severity Reaction Status Date / Time No Known Allergies Allergy Verified 01/12/21 14:30 [No Known Allergies*] Assessment & Plan Assessment & Plan (1) Severe benzodiazepine use disorder: Status: Acute Code(s): F13.20 - Sedative, hypnotic or anxiolytic dependence, uncomplicated (2) Anxiety: Status: Acute Code(s): F41.9 - Anxiety disorder, unspecified (3) Severe mood disorder with psychotic features: Status: Acute Code(s): F39 - Unspecified mood [affective] disorder Plan 23 yo male, history of benzodiazepine dependence, anxiety, mood disorder, psychosis, brought in by family due to emergence of psychotic symptoms possibly in the context of benzodiazepine abuse and intoxication. Pt reports severe anxiety, with the worst times between 5696-1036 daily. Father reports use is out of control, stating pt has recently taken $700 to purchase benzodiazepines prior to admission. Plan: Collateral contacts Re-establish regime Monitor sx Full milieu Propranolol 5 mg 1400. 06/25/23- Continue tx Patient educated on: medication risk/benefits and therapeutic strategies Informed Consent: understands Reason for continued inpatient stay Substantial Risk for: rapid decompensation Time Spent With Patient Time: Total time managing care of this patient today ____ minutes.
[2023-06-25 19:20] VITALS: BP 100/56; PULSE 72; RESP 16; TEMP 36.2; O2SAT 95
[2023-06-25] MEDS: Mirtazapine 15 MG TABLET PO (20:45)
[2023-06-25 21:00] VITALS: BP 112/67; PULSE 78
[2023-06-26] MEDS: Omeprazole 20 MG CAPSULE.DR PO (06:20)
[2023-06-26 08:22] VITALS: BP 125/77; PULSE 70; RESP 16; TEMP 36.6; O2SAT 100
[2023-06-26] MEDS: Venlafaxine HCl ER 37.5 MG CAP.ER.24H 112.5 MG PO (08:27)
[2023-06-26] MEDS: clonazePAM 1 MG TABLET PO ×3 (08:27→20:40)
[2023-06-26] MEDS: Nicotine Polacrilex 2 MG GUM 4 MG BUCCAL ×4 (08:27→20:28)
[2023-06-26] MEDS: methADONE HCl 20 MG/2 ML ORAL.CONC 140 MG PO (08:28)
[2023-06-26] MEDS: Propranolol HCL 10 MG TABLET 5 MG PO ×2 (08:28→20:38)
[2023-06-26] MEDS: Lithium Carbonate ER 450 MG TABLET.ER PO ×2 (08:28→20:40)
[2023-06-26] MEDS: chlorproMAZINE HCl 25 MG TABLET PO ×2 (08:39→20:28)
[2023-06-26] MEDS: Nicotine 21 MG PATCH.TD24 TRANSDERMA (10:27)
--- NOTE | 2023-06-26 15:28 | P.PNPSI_ITS ---
Subjective Subjective Date of Service: 06/26/23 Reason For Visit: Disorganized Subjective Notes: Conditional Voluntary Healthcare Proxy: No Guardianship: No Medical Problems Affecting Mental Status: No Interim History: Pt declined offer from [facility] for admission as they want to review benzos for possible discontinuation. Pt reports they told him they would stop benzos on admission, however, the facility is asking for the ability to assess and begin a taper if they see fit. As a result, pt is looking at long term options. Reports feeling well on current regime, denies SE. Medication Compliance: Yes Side effects from medications: No Attending Groups: Intermittent Review of Systems Acute medical concerns: No Medical Review of Systems: unchanged Review of Systems Review of Systems Yes all other systems are reviewed and are negative Mental Status Exam Mental Status Exam Patient Appearance: Appropriate Patient Orientation: Person, Place, Time and Situation Level of Consciousness: Alert Patient Behavior: Appropriate, Talkative, Anxious and Good Eye Contact Mood Description: Anxious Affect Description: Anxious Patient Cognition Impaired: No Ability to Follow Directions: Fair Speech Pattern: Clear, Perseverating and Soft-Spoken Memory Description: Intact Hallucinations: None Delusions: Not Present Perceptual Disturbances: Derealization Thought Process: Rumination Thought Content: positive for Perseveration Depressive Symptoms: Increased Anxiety and Thoughts of /Suicide (denies) Judgement: Fair Diagnostics Vital Signs (24Hr): Vital Signs - 24 hr 06/25/23 19:20 06/25/23 21:00 06/26/23 08:22 Temperature 97.2 F 97.9 F Pulse Rate 72 78 70 Respiratory Rate 16 16 Blood Pressure 100/56 L 112/67 125/77 Pulse Oximetry 95 100 Oxygen Delivery Method Room Air Room Air BMI result Body Mass Index 32.3 Labs 06/20/23 11:02 06/20/23 11:02 Medications Medications Current Medications Acetaminophen (Acetaminophen 325 Mg Tablet) 650 mg PO Q6H PRN PRN Reason: Headache/Pain Mild Scale (1-3) Al Hydroxide/Mg Hydroxide (Magnesium Hydrox/Alum Hydrox 30 Ml Oral.Susp) 30 ml PO Q6H PRN PRN Reason: Heartburn/Nausea Chlorpromazine HCl (Chlorpromazine Hcl 25 Mg Tablet) 25 mg PO BID PRN PRN Reason: nausea, racing thoughts Last Admin: 06/26/23 08:39 Dose: 25 mg Clonazepam (Clonazepam 1 Mg Tablet) 1 mg PO TID [facility] Last Admin: 06/26/23 13:54 Dose: 1 mg Hydroxyzine HCl (Hydroxyzine Hcl 25 Mg Tablet) 25 mg PO Q6H PRN PRN Reason: Anxiety Last Admin: 06/24/23 20:17 Dose: 25 mg [place] Carbonate ([place] Carbonate Er 450 Mg Tablet.Er) 450 mg PO BID [facility] Last Admin: 06/26/23 08:28 Dose: 450 mg Magnesium Hydroxide (Milk Of Magnesia 30 Ml Oral.Susp) 30 ml PO DAILY PRN PRN Reason: Constipation Methadone HCl (Methadone Hcl 20 Mg/2 Ml Oral.Conc) 140 mg PO DAILY [facility] Last Admin: 06/26/23 08:28 Dose: 140 mg Mirtazapine (Mirtazapine 15 Mg Tablet) 15 mg PO BEDTIME [facility] Last Admin: 06/25/23 20:45 Dose: 15 mg Nicotine (Nicotine 21 Mg Patch.Td24) 21 mg TRANSDERMA DAILY PRN PRN Reason: smoking cessation Last Admin: 06/26/23 10:27 Dose: 21 mg Nicotine Polacrilex (Nicotine Polacrilex 2 Mg Gum) 4 mg [place]CC[place] Q2H PRN PRN Reason: Nicotine Cravings Last Admin: 06/26/23 13:54 Dose: 4 mg Olanzapine (Olanzapine 5 Mg Tablet) 5 mg PO TID PRN PRN Reason: agitation Omeprazole (Omeprazole 20 Mg Capsule.Dr) 20 mg PO DAILY@0630 [facility] Last Admin: 06/26/23 06:20 Dose: 20 mg Propranolol HCl (Propranolol Hcl 10 Mg Tablet) 5 mg PO BID [facility]; Protocol Last Admin: 06/26/23 08:28 Dose: 5 mg Trazodone HCl (Trazodone Hcl 50 Mg Tablet) 50 mg PO BEDTIME MRX1 PRN PRN Reason: Insomnia Venlafaxine HCl (Venlafaxine Hcl Er 37.5 Mg Cap.Er.24h) 112.5 mg PO DAILY [facility] Last Admin: 06/26/23 08:27 Dose: 112.5 mg Allergies Allergies Allergy/AdvReac Type Severity Reaction Status Date / Time No Known Allergies Allergy Verified 01/12/21 14:30 [No Known Allergies*] Assessment & Plan Assessment & Plan (1) Severe benzodiazepine use disorder: Status: Acute Code(s): F13.20 - Sedative, hypnotic or anxiolytic dependence, uncomplicated (2) Anxiety: Status: Acute Code(s): F41.9 - Anxiety disorder, unspecified (3) Severe mood disorder with psychotic features: Status: Acute Code(s): F39 - Unspecified mood [affective] disorder Plan 23 yo male, history of benzodiazepine dependence, anxiety, mood disorder, psychosis, brought in by family due to emergence of psychotic symptoms possibly in the context of benzodiazepine abuse and intoxication. Pt reports severe anxiety, with the worst times between 6747-6621 daily. Father reports use is out of control, stating pt has recently taken $700 to purchase benzodiazepines prior to admission. Plan: Collateral contacts Re-establish regime Monitor sx Full milieu Propranolol 5 mg 1400. 06/25/23- Continue tx 06/26/23- Continue tx Patient educated on: medication risk/benefits Informed Consent: further education needed Reason for continued inpatient stay Substantial Risk for: rapid decompensation Time Spent With Patient Time: Total time managing care of this patient today ____ minutes.
[2023-06-26 17:10] VITALS: BP 129/87; PULSE 77; RESP 16; TEMP 37; O2SAT 98
[2023-06-26] MEDS: Mirtazapine 15 MG TABLET PO (20:40)
[2023-06-27] MEDS: Nicotine Polacrilex 2 MG GUM 4 MG BUCCAL ×5 (00:12→21:14)
[2023-06-27] MEDS: Omeprazole 20 MG CAPSULE.DR PO (06:11)
[2023-06-27 07:42] VITALS: BP 132/75; PULSE 71; RESP 16; TEMP 36.6; O2SAT 100
[2023-06-27] MEDS: Venlafaxine HCl ER 37.5 MG CAP.ER.24H 112.5 MG PO (08:27)
[2023-06-27] MEDS: Propranolol HCL 10 MG TABLET 5 MG PO ×2 (08:27→21:15)
[2023-06-27] MEDS: Lithium Carbonate ER 450 MG TABLET.ER PO ×2 (08:27→21:15)
[2023-06-27] MEDS: chlorproMAZINE HCl 25 MG TABLET PO ×2 (08:27→21:14)
[2023-06-27] MEDS: clonazePAM 1 MG TABLET PO ×3 (08:27→21:16)
[2023-06-27] MEDS: methADONE HCl 20 MG/2 ML ORAL.CONC 140 MG PO (08:29)
[2023-06-27] MEDS: Nicotine 21 MG PATCH.TD24 TRANSDERMA (08:30)
[2023-06-27] MEDS: hydrOXYzine HCL 25 MG TABLET PO (11:07)
--- NOTE | 2023-06-27 12:06 | HO.PSYCHPN ---
Subjective Subjective Date of Service: 06/27/23 Reason For Visit: Disorganized Interim History: pt pleasant; quiet; no complaints; pt is looking at senior living options. Reports feeling well on current regime, denies SE. Medication Compliance: Yes Side effects from medications: No Attending Groups: Intermittent Review of Systems Acute medical concerns: No Review of Systems Review of Systems Yes all other systems are reviewed and are negative Constitutional: Reports no additional constitutional complaints, Denies body ache(s), Denies chills, Denies fever(s), Denies headache(s) and Denies weakness Eyes: Reports no additional eye complaints and Denies change in vision Reports system reviewed and no additional complaints, except as documented, Denies dizziness, Denies headache(s), Denies nasal congestion, Denies nasal discharge and Denies neck pain Cardiovascular: Reports no additional cardiovascular complaints, Denies chest pain, Denies leg edema and Denies dyspnea Respiratory: Reports no additional respiratory complaints, Denies cough and Denies dyspnea Gastrointestinal: Reports no additional gastrointestinal complaints, Denies abdominal pain, Denies diarrhea, Denies nausea and Denies vomiting Genitourinary: Denies urinary incontinence Musculoskeletal: Reports no additional musculoskeletal complaints, Denies back pain, Denies arthralgias, Denies joint swelling, Denies neck pain, Denies numbness and Denies tingling Skin/Breast: Reports system reviewed and no additional complaints, except as docu and Denies rash Reports system reviewed and no additional complaints, except as documented, Denies Abnormal speech present, Reports behavioral changes, Denies dizziness, Denies headache(s), Denies numbness, Denies tingling and Denies weakness Psychiatric: Reports behavioral changes, Denies homicidal ideation and Denies suicidal ideation Mental Status Exam Mental Status Exam Patient Appearance: Appropriate Patient Orientation: Person, Place, Time and Situation Level of Consciousness: Alert Patient Behavior: Appropriate, Talkative, Anxious and Good Eye Contact Mood Description: Anxious Affect Description: Anxious Patient Cognition Impaired: No Ability to Follow Directions: Fair Speech Pattern: Clear, Perseverating and Soft-Spoken Memory Description: Intact Hallucinations: None Delusions: Not Present Thought Process: Goal Oriented Thought Content: positive for Goal Oriented Judgement: Fair Diagnostics Vital Signs (24Hr): Vital Signs - 24 hr 06/26/23 17:10 06/27/23 07:42 Temperature 98.6 F 97.9 F Pulse Rate 77 71 Respiratory Rate 16 16 Blood Pressure 129/87 132/75 Pulse Oximetry 98 100 Oxygen Delivery Method Room Air Room Air BMI result Body Mass Index 32.3 Labs 06/20/23 11:02 06/20/23 11:02 Medications Medications Current Medications Acetaminophen (Acetaminophen 325 Mg Tablet) 650 mg PO Q6H PRN PRN Reason: Headache/Pain Mild Scale (1-3) Al Hydroxide/Mg Hydroxide (Magnesium Hydrox/Alum Hydrox 30 Ml Oral.Susp) 30 ml PO Q6H PRN PRN Reason: Heartburn/Nausea Chlorpromazine HCl (Chlorpromazine Hcl 25 Mg Tablet) 25 mg PO BID PRN PRN Reason: nausea, racing thoughts Last Admin: 06/27/23 08:27 Dose: 25 mg Clonazepam (Clonazepam 1 Mg Tablet) 1 mg PO TID [facility] Last Admin: 06/27/23 08:27 Dose: 1 mg Hydroxyzine HCl (Hydroxyzine Hcl 25 Mg Tablet) 25 mg PO Q6H PRN PRN Reason: Anxiety Last Admin: 06/27/23 11:07 Dose: 25 mg [place] Carbonate ([place] Carbonate Er 450 Mg Tablet.Er) 450 mg PO BID [facility] Last Admin: 06/27/23 08:27 Dose: 450 mg Magnesium Hydroxide (Milk Of Magnesia 30 Ml Oral.Susp) 30 ml PO DAILY PRN PRN Reason: Constipation Methadone HCl (Methadone Hcl 20 Mg/2 Ml Oral.Conc) 140 mg PO DAILY [facility] Last Admin: 06/27/23 08:29 Dose: 140 mg Mirtazapine (Mirtazapine 15 Mg Tablet) 15 mg PO BEDTIME [facility] Last Admin: 06/26/23 20:40 Dose: 15 mg Nicotine (Nicotine 21 Mg Patch.Td24) 21 mg TRANSDERMA DAILY PRN PRN Reason: smoking cessation Last Admin: 06/27/23 08:30 Dose: 21 mg Nicotine Polacrilex (Nicotine Polacrilex 2 Mg Gum) 4 mg [place] Q2H PRN PRN Reason: Nicotine Cravings Last Admin: 06/27/23 11:07 Dose: 4 mg Olanzapine (Olanzapine 5 Mg Tablet) 5 mg PO TID PRN PRN Reason: agitation Omeprazole (Omeprazole 20 Mg Capsule.Dr) 20 mg PO DAILY@0630 [facility] Last Admin: 06/27/23 06:11 Dose: 20 mg Propranolol HCl (Propranolol Hcl 10 Mg Tablet) 5 mg PO BID [facility]; Protocol Last Admin: 06/27/23 08:27 Dose: 5 mg Trazodone HCl (Trazodone Hcl 50 Mg Tablet) 50 mg PO BEDTIME MRX1 PRN PRN Reason: Insomnia Venlafaxine HCl (Venlafaxine Hcl Er 37.5 Mg Cap.Er.24h) 112.5 mg PO DAILY [facility] Last Admin: 06/27/23 08:27 Dose: 112.5 mg Allergies Allergies Allergy/AdvReac Type Severity Reaction Status Date / Time No Known Allergies Allergy Verified 01/12/21 14:30 [No Known Allergies*] Assessment & Plan Assessment & Plan (1) Severe benzodiazepine use disorder: Status: Acute Code(s): F13.20 - Sedative, hypnotic or anxiolytic dependence, uncomplicated (2) Anxiety: Status: Acute Code(s): F41.9 - Anxiety disorder, unspecified (3) Severe mood disorder with psychotic features: Status: Acute Code(s): F39 - Unspecified mood [affective] disorder Plan 23 yo male, history of benzodiazepine dependence, anxiety, mood disorder, psychosis, brought in by family due to emergence of psychotic symptoms possibly in the context of benzodiazepine abuse and intoxication. Pt reports severe anxiety, with the worst times between 0412-3696 daily. Father reports use is out of control, stating pt has recently taken $700 to purchase benzodiazepines prior to admission. Plan: Collateral contacts Re-establish regime Monitor sx Full milieu Propranolol 5 mg 1400. 06/25/23- Continue tx 06/26/23- Continue tx 06/27 continue tx Reason for continued inpatient stay Substantial Risk for: harm to self and inability to function Time Spent With Patient Time: Total time managing care of this patient today ____ minutes.
[2023-06-27 18:00] VITALS: BP 107/57; PULSE 67; RESP 16; TEMP 36.6; O2SAT 99
[2023-06-27] MEDS: Mirtazapine 15 MG TABLET PO (21:16)
[2023-06-28 06:00] VITALS: BP 122/80; PULSE 74; RESP 18; TEMP 36.9; O2SAT 100
[2023-06-28] MEDS: Omeprazole 20 MG CAPSULE.DR PO (06:39)
[2023-06-28] MEDS: Lithium Carbonate ER 450 MG TABLET.ER PO ×2 (08:25→20:59)
[2023-06-28] MEDS: Propranolol HCL 10 MG TABLET 5 MG PO ×2 (08:25→20:57)
[2023-06-28] MEDS: chlorproMAZINE HCl 25 MG TABLET PO ×2 (08:25→20:59)
[2023-06-28] MEDS: Venlafaxine HCl ER 37.5 MG CAP.ER.24H 112.5 MG PO (08:25)
[2023-06-28] MEDS: Nicotine Polacrilex 2 MG GUM 4 MG BUCCAL ×4 (08:26→20:59)
[2023-06-28] MEDS: Nicotine 21 MG PATCH.TD24 TRANSDERMA (08:26)
[2023-06-28] MEDS: methADONE HCl 20 MG/2 ML ORAL.CONC 140 MG PO (08:26)
[2023-06-28] MEDS: clonazePAM 1 MG TABLET PO ×3 (08:26→20:59)
--- NOTE | 2023-06-28 10:15 | P.PNPSI_ITS ---
Subjective Subjective Date of Service: 06/28/23 Reason For Visit: Disorganized Interim History: pt pleasant;polite; feels meds are working well. quiet; no complaints; pt is looking at penitentiary options. Reports feeling well on current regime, denies SE. Medication Compliance: Yes Side effects from medications: No Attending Groups: Intermittent Review of Systems Acute medical concerns: No Medical Review of Systems: unchanged Review of Systems Review of Systems Yes all other systems are reviewed and are negative Constitutional: Reports no additional constitutional complaints, Denies body ache(s), Denies chills, Denies fever(s), Denies headache(s) and Denies weakness Eyes: Reports no additional eye complaints and Denies change in vision Reports system reviewed and no additional complaints, except as documented, Denies dizziness, Denies headache(s), Denies nasal congestion, Denies nasal discharge and Denies neck pain Cardiovascular: Reports no additional cardiovascular complaints, Denies chest pain, Denies leg edema and Denies dyspnea Respiratory: Reports no additional respiratory complaints, Denies cough and Denies dyspnea Gastrointestinal: Reports no additional gastrointestinal complaints, Denies abdominal pain, Denies diarrhea, Denies nausea and Denies vomiting Genitourinary: Denies urinary incontinence Musculoskeletal: Reports no additional musculoskeletal complaints, Denies back pain, Denies arthralgias, Denies joint swelling, Denies neck pain, Denies numbness and Denies tingling Skin/Breast: Reports system reviewed and no additional complaints, except as docu and Denies rash Reports system reviewed and no additional complaints, except as documented, Denies Abnormal speech present, Reports behavioral changes, Denies dizziness, Denies headache(s), Denies numbness, Denies tingling and Denies weakness Psychiatric: Reports behavioral changes, Denies homicidal ideation and Denies suicidal ideation Mental Status Exam Mental Status Exam Patient Appearance: Appropriate Patient Orientation: Person, Place, Time and Situation Level of Consciousness: Alert Patient Behavior: Appropriate, Talkative, Anxious and Good Eye Contact Mood Description: Anxious Affect Description: Anxious Patient Cognition Impaired: No Ability to Follow Directions: Fair Speech Pattern: Clear, Perseverating and Soft-Spoken Memory Description: Intact Judgement: Good Diagnostics Vital Signs (24Hr): Vital Signs - 24 hr 06/27/23 18:00 06/28/23 06:00 Temperature 97.9 F 98.4 F Pulse Rate 67 74 Respiratory Rate 16 18 Blood Pressure 107/57 L 122/80 Pulse Oximetry 99 100 Oxygen Delivery Method Room Air Room Air BMI result Body Mass Index 32.3 Labs 06/20/23 11:02 06/20/23 11:02 Medications Medications Current Medications Acetaminophen (Acetaminophen 325 Mg Tablet) 650 mg PO Q6H PRN PRN Reason: Headache/Pain Mild Scale (1-3) Al Hydroxide/Mg Hydroxide (Magnesium Hydrox/Alum Hydrox 30 Ml Oral.Susp) 30 ml PO Q6H PRN PRN Reason: Heartburn/Nausea Chlorpromazine HCl (Chlorpromazine Hcl 25 Mg Tablet) 25 mg PO BID PRN PRN Reason: nausea, racing thoughts Last Admin: 06/28/23 08:25 Dose: 25 mg Clonazepam (Clonazepam 1 Mg Tablet) 1 mg PO TID [facility] Last Admin: 06/28/23 08:26 Dose: 1 mg Hydroxyzine HCl (Hydroxyzine Hcl 25 Mg Tablet) 25 mg PO Q6H PRN PRN Reason: Anxiety Last Admin: 06/27/23 11:07 Dose: 25 mg [place] Carbonate ([place] Carbonate Er 450 Mg Tablet.Er) 450 mg PO BID [facility] Last Admin: 06/28/23 08:25 Dose: 450 mg Magnesium Hydroxide (Milk Of Magnesia 30 Ml Oral.Susp) 30 ml PO DAILY PRN PRN Reason: Constipation Methadone HCl (Methadone Hcl 20 Mg/2 Ml Oral.Conc) 140 mg PO DAILY [facility] Last Admin: 06/28/23 08:26 Dose: 140 mg Mirtazapine (Mirtazapine 15 Mg Tablet) 15 mg PO BEDTIME [facility] Last Admin: 06/27/23 21:16 Dose: 15 mg Nicotine (Nicotine 21 Mg Patch.Td24) 21 mg TRANSDERMA DAILY PRN PRN Reason: smoking cessation Last Admin: 06/28/23 08:26 Dose: 21 mg Nicotine Polacrilex (Nicotine Polacrilex 2 Mg Gum) 4 mg BUCCAL Q2H PRN PRN Reason: Nicotine Cravings Last Admin: 06/28/23 08:26 Dose: 4 mg Olanzapine (Olanzapine 5 Mg Tablet) 5 mg PO TID PRN PRN Reason: agitation Omeprazole (Omeprazole 20 Mg Capsule.Dr) 20 mg PO DAILY@0630 [facility] Last Admin: 06/28/23 06:39 Dose: 20 mg Propranolol HCl (Propranolol Hcl 10 Mg Tablet) 5 mg PO BID [facility]; Protocol Last Admin: 06/28/23 08:25 Dose: 5 mg Trazodone HCl (Trazodone Hcl 50 Mg Tablet) 50 mg PO BEDTIME MRX1 PRN PRN Reason: Insomnia Venlafaxine HCl (Venlafaxine Hcl Er 37.5 Mg Cap.Er.24h) 112.5 mg PO DAILY [facility] Last Admin: 06/28/23 08:25 Dose: 112.5 mg Allergies Allergies Allergy/AdvReac Type Severity Reaction Status Date / Time No Known Allergies Allergy Verified 01/12/21 14:30 [No Known Allergies*] Assessment & Plan Assessment & Plan (1) Severe benzodiazepine use disorder: Status: Acute Code(s): F13.20 - Sedative, hypnotic or anxiolytic dependence, uncomplicated (2) Anxiety: Status: Acute Code(s): F41.9 - Anxiety disorder, unspecified (3) Severe mood disorder with psychotic features: Status: Acute Code(s): F39 - Unspecified mood [affective] disorder Plan 23 yo male, history of benzodiazepine dependence, anxiety, mood disorder, psychosis, brought in by family due to emergence of psychotic symptoms possibly in the context of benzodiazepine abuse and intoxication. Pt reports severe anxiety, with the worst times between 5901-0442 daily. Father reports use is out of control, stating pt has recently taken $700 to purchase benzodiazepines prior to admission. Plan: Collateral contacts Re-establish regime Monitor sx Full milieu Propranolol 5 mg 1400. 06/25/23- Continue tx 06/26/23- Continue tx 06/27 continue tx 06/28 continue tx plan Reason for continued inpatient stay Substantial Risk for: harm to self, inability to function and rapid decompensation Time Spent With Patient Time: Total time managing care of this patient today ____ minutes.
[2023-06-28 18:00] VITALS: BP 117/74; PULSE 68; RESP 18; TEMP 36.9; O2SAT 100
[2023-06-28] MEDS: Mirtazapine 15 MG TABLET PO (20:59)
--- NOTE | 2023-06-29 | ECG_ITS ---
Test Reason : QTC CHECK Blood Pressure : / mmHG Vent. Rate : 060 BPM Atrial Rate : 060 BPM P-R Int : 148 ms QRS Dur : 086 ms QT Int : 440 ms P-R-T Axes : 063 083 076 degrees QTc Int : 440 ms Normal sinus rhythm Normal ECG When compared with ECG of 21-JUN-2023 09:26, No significant change was found Referred By: Elizabeth Barrios Electronically Signed By:BHAKTI OSMAN MD
[2023-06-29] MEDS: Omeprazole 20 MG CAPSULE.DR PO (05:51)
[2023-06-29 08:10] VITALS: BP 126/67; PULSE 98; RESP 16; TEMP 36.6; O2SAT 98
[2023-06-29] MEDS: Nicotine 21 MG PATCH.TD24 TRANSDERMA (08:27)
[2023-06-29] MEDS: Venlafaxine HCl ER 37.5 MG CAP.ER.24H 112.5 MG PO (08:28)
[2023-06-29] MEDS: clonazePAM 1 MG TABLET PO ×3 (08:28→20:48)
[2023-06-29] MEDS: Propranolol HCL 10 MG TABLET 5 MG PO ×2 (08:28→20:48)
[2023-06-29] MEDS: chlorproMAZINE HCl 25 MG TABLET PO ×2 (08:28→20:47)
[2023-06-29] MEDS: Lithium Carbonate ER 450 MG TABLET.ER PO ×2 (08:28→20:50)
[2023-06-29] MEDS: Nicotine Polacrilex 2 MG GUM 4 MG BUCCAL ×4 (08:28→20:48)
[2023-06-29] MEDS: methADONE HCl 20 MG/2 ML ORAL.CONC 140 MG PO (08:31)
--- NOTE | 2023-06-29 17:25 | P.PNPSI_ITS ---
Subjective Subjective Date of Service: 06/29/23 Reason For Visit: Disorganized Subjective Notes: Conditional Voluntary Healthcare Proxy: No Guardianship: No Medical Problems Affecting Mental Status: No Interim History: Pt reconsidering [facility] program. Father has called them and discussed pt's history in programs with benzodiazepine cessation and results that have been traumatic for pt. All are reconsidering an admission for rehab. Father reports when taken off benzodiazepines pt has been bedridden, suicidal, unable to minimally function. Pt visable and engaged in milieu, more hopeful today and believes this will be helpful if he can have some assurance he will not be set back. Medication Compliance: Yes Side effects from medications: No Attending Groups: Intermittent Review of Systems Acute medical concerns: No Medical Review of Systems: unchanged Review of Systems Review of Systems Yes all other systems are reviewed and are negative Mental Status Exam Mental Status Exam Patient Appearance: Appropriate Patient Orientation: Person, Place, Time and Situation Level of Consciousness: Alert Patient Behavior: Appropriate, Talkative and Good Eye Contact Mood Description: Anxious Affect Description: Anxious Patient Cognition Impaired: No Ability to Follow Directions: Good Speech Pattern: Spontaneous Speech Memory Description: Intact Hallucinations: None Delusions: Not Present Perceptual Disturbances: Depersonalization and Derealization Thought Process: Rumination Thought Content: positive for Circumstantial and positive for Suicidal Ideation (denies) Depressive Symptoms: Increased Anxiety Judgement: Good Diagnostics Vital Signs (24Hr): Vital Signs - 24 hr 06/28/23 18:00 06/29/23 08:10 Temperature 98.4 F 97.9 F Pulse Rate 68 98 Respiratory Rate 18 16 Blood Pressure 117/74 126/67 Pulse Oximetry 100 98 Oxygen Delivery Method Room Air Room Air BMI result Body Mass Index 32.3 Labs 06/20/23 11:02 06/20/23 11:02 Medications Medications Current Medications Acetaminophen (Acetaminophen 325 Mg Tablet) 650 mg PO Q6H PRN PRN Reason: Headache/Pain Mild Scale (1-3) Al Hydroxide/Mg Hydroxide (Magnesium Hydrox/Alum Hydrox 30 Ml Oral.Susp) 30 ml PO Q6H PRN PRN Reason: Heartburn/Nausea Chlorpromazine HCl (Chlorpromazine Hcl 25 Mg Tablet) 25 mg PO BID PRN PRN Reason: nausea, racing thoughts Last Admin: 06/29/23 08:28 Dose: 25 mg Clonazepam (Clonazepam 1 Mg Tablet) 1 mg PO TID [facility] Last Admin: 06/29/23 14:20 Dose: 1 mg Hydroxyzine HCl (Hydroxyzine Hcl 25 Mg Tablet) 25 mg PO Q6H PRN PRN Reason: Anxiety Last Admin: 06/27/23 11:07 Dose: 25 mg [place] Carbonate ([place] Carbonate Er 450 Mg Tablet.Er) 450 mg PO BID [facility] Last Admin: 06/29/23 08:28 Dose: 450 mg Magnesium Hydroxide (Milk Of Magnesia 30 Ml Oral.Susp) 30 ml PO DAILY PRN PRN Reason: Constipation Methadone HCl (Methadone Hcl 20 Mg/2 Ml Oral.Conc) 140 mg PO DAILY [facility] Last Admin: 06/29/23 08:31 Dose: 140 mg Mirtazapine (Mirtazapine 15 Mg Tablet) 15 mg PO BEDTIME [facility] Last Admin: 06/28/23 20:59 Dose: 15 mg Nicotine (Nicotine 21 Mg Patch.Td24) 21 mg TRANSDERMA DAILY PRN PRN Reason: smoking cessation Last Admin: 06/29/23 08:27 Dose: 21 mg Nicotine Polacrilex (Nicotine Polacrilex 2 Mg Gum) 4 mg BUCCAL Q2H PRN PRN Reason: Nicotine Cravings Last Admin: 06/29/23 14:20 Dose: 4 mg Olanzapine (Olanzapine 5 Mg Tablet) 5 mg PO TID PRN PRN Reason: agitation Omeprazole (Omeprazole 20 Mg Capsule.Dr) 20 mg PO DAILY@0630 [facility] Last Admin: 06/29/23 05:51 Dose: 20 mg Propranolol HCl (Propranolol Hcl 10 Mg Tablet) 5 mg PO BID [facility]; Protocol Last Admin: 06/29/23 08:28 Dose: 5 mg Trazodone HCl (Trazodone Hcl 50 Mg Tablet) 50 mg PO BEDTIME MRX1 PRN PRN Reason: Insomnia Venlafaxine HCl (Venlafaxine Hcl Er 37.5 Mg Cap.Er.24h) 112.5 mg PO DAILY [facility] Last Admin: 06/29/23 08:28 Dose: 112.5 mg Allergies Allergies Allergy/AdvReac Type Severity Reaction Status Date / Time No Known Allergies Allergy Verified 01/12/21 14:30 [No Known Allergies*] Assessment & Plan Assessment & Plan (1) Severe benzodiazepine use disorder: Status: Acute Code(s): F13.20 - Sedative, hypnotic or anxiolytic dependence, uncomplicated (2) Anxiety: Status: Acute Code(s): F41.9 - Anxiety disorder, unspecified (3) Severe mood disorder with psychotic features: Status: Acute Code(s): F39 - Unspecified mood [affective] disorder Plan 23 yo male, history of benzodiazepine dependence, anxiety, mood disorder, psychosis, brought in by family due to emergence of psychotic symptoms possibly in the context of benzodiazepine abuse and intoxication. Pt reports severe anxiety, with the worst times between 3838-7949 daily. Father reports use is out of control, stating pt has recently taken $700 to purchase benzodiazepines prior to admission. Plan: Collateral contacts Re-establish regime Monitor sx Full milieu Propranolol 5 mg 1400. 06/25/23- Continue tx 06/26/23- Continue tx 06/27 continue tx 06/28 continue tx plan 06/29/23 Continue tx plan Patient educated on: therapeutic strategies Guardian/Caregiver educated on: therapeutic strategies Informed Consent: understands Reason for continued inpatient stay Substantial Risk for: rapid decompensation Time Spent With Patient Time: Total time managing care of this patient today ____ minutes.
[2023-06-29 20:45] VITALS: BP 128/77; PULSE 77; TEMP 35.9
[2023-06-29] MEDS: Mirtazapine 15 MG TABLET PO (20:50)
[2023-06-30] MEDS: Omeprazole 20 MG CAPSULE.DR PO (06:18)
[2023-06-30 08:11] VITALS: BP 135/72; PULSE 72; RESP 16; TEMP 36.7; O2SAT 98
[2023-06-30] MEDS: chlorproMAZINE HCl 25 MG TABLET PO ×2 (08:15→20:10)
[2023-06-30] MEDS: clonazePAM 1 MG TABLET PO ×3 (08:15→20:10)
[2023-06-30] MEDS: Venlafaxine HCl ER 37.5 MG CAP.ER.24H 112.5 MG PO (08:15)
[2023-06-30] MEDS: Nicotine 21 MG PATCH.TD24 TRANSDERMA (08:15)
[2023-06-30] MEDS: Lithium Carbonate ER 450 MG TABLET.ER PO ×2 (08:16→20:10)
[2023-06-30] MEDS: Nicotine Polacrilex 2 MG GUM 4 MG BUCCAL ×4 (08:16→20:09)
[2023-06-30] MEDS: Propranolol HCL 10 MG TABLET 5 MG PO ×2 (08:16→20:09)
[2023-06-30] MEDS: methADONE HCl 20 MG/2 ML ORAL.CONC 140 MG PO (08:57)
--- NOTE | 2023-06-30 09:53 | HO.PSYCHPN ---
Subjective Subjective Date of Service: 06/30/23 Reason For Visit: Disorganized Subjective Notes: Conditional Voluntary Healthcare Proxy: No Guardianship: No Medical Problems Affecting Mental Status: No Interim History: Pt awaits transition to [facility]. [facility] is currently accessing pt's [facility] treatment records for maintenance. Pt is anxious, regarding transfer, but states he is feeling improved. He is engaged with peers and in the milieu. Medication Compliance: Yes Side effects from medications: No Attending Groups: Intermittent Review of Systems Acute medical concerns: No Medical Review of Systems: unchanged Mental Status Exam Mental Status Exam Patient Appearance: Appropriate Patient Orientation: Person, Place, Time and Situation Level of Consciousness: Alert Patient Behavior: Appropriate, Talkative and Good Eye Contact Mood Description: Anxious Affect Description: Anxious Patient Cognition Impaired: No Ability to Follow Directions: Good Speech Pattern: Spontaneous Speech Memory Description: Intact Hallucinations: None Delusions: Not Present Perceptual Disturbances: Depersonalization and Derealization Thought Process: Rumination Thought Content: positive for Circumstantial and positive for Suicidal Ideation (denies) Depressive Symptoms: Increased Anxiety Judgement: Good Diagnostics Vital Signs (24Hr): Vital Signs - 24 hr 06/29/23 20:45 06/30/23 08:11 Temperature 96.6 F L 98.0 F Pulse Rate 77 72 Respiratory Rate 16 Blood Pressure 128/77 135/72 Pulse Oximetry 98 Oxygen Delivery Method Room Air BMI result Body Mass Index 32.3 Labs 06/20/23 11:02 06/20/23 11:02 Medications Medications Current Medications Acetaminophen (Acetaminophen 325 Mg Tablet) 650 mg PO Q6H PRN PRN Reason: Headache/Pain Mild Scale (1-3) Al Hydroxide/Mg Hydroxide (Magnesium Hydrox/Alum Hydrox 30 Ml Oral.Susp) 30 ml PO Q6H PRN PRN Reason: Heartburn/Nausea Chlorpromazine HCl (Chlorpromazine Hcl 25 Mg Tablet) 25 mg PO BID PRN PRN Reason: nausea, racing thoughts Last Admin: 06/30/23 08:15 Dose: 25 mg Clonazepam (Clonazepam 1 Mg Tablet) 1 mg PO TID [facility] Last Admin: 06/30/23 08:15 Dose: 1 mg Hydroxyzine HCl (Hydroxyzine Hcl 25 Mg Tablet) 25 mg PO Q6H PRN PRN Reason: Anxiety Last Admin: 06/27/23 11:07 Dose: 25 mg [place] Carbonate ([place] Carbonate Er 450 Mg Tablet.Er) 450 mg PO BID [facility] Last Admin: 06/30/23 08:16 Dose: 450 mg Magnesium Hydroxide (Milk Of Magnesia 30 Ml Oral.Susp) 30 ml PO DAILY PRN PRN Reason: Constipation Methadone HCl (Methadone Hcl 20 Mg/2 Ml Oral.Conc) 140 mg PO DAILY [facility] Last Admin: 06/30/23 08:57 Dose: 140 mg Mirtazapine (Mirtazapine 15 Mg Tablet) 15 mg PO BEDTIME [facility] Last Admin: 06/29/23 20:50 Dose: 15 mg Nicotine (Nicotine 21 Mg Patch.Td24) 21 mg TRANSDERMA DAILY PRN PRN Reason: smoking cessation Last Admin: 06/30/23 08:15 Dose: 21 mg Nicotine Polacrilex (Nicotine Polacrilex 2 Mg Gum) 4 mg BUCCAL Q2H PRN PRN Reason: Nicotine Cravings Last Admin: 06/30/23 08:16 Dose: 4 mg Olanzapine (Olanzapine 5 Mg Tablet) 5 mg PO TID PRN PRN Reason: agitation Omeprazole (Omeprazole 20 Mg Capsule.Dr) 20 mg PO DAILY@0630 [facility] Last Admin: 06/30/23 06:18 Dose: 20 mg Propranolol HCl (Propranolol Hcl 10 Mg Tablet) 5 mg PO BID [facility]; Protocol Last Admin: 06/30/23 08:16 Dose: 5 mg Trazodone HCl (Trazodone Hcl 50 Mg Tablet) 50 mg PO BEDTIME MRX1 PRN PRN Reason: Insomnia Venlafaxine HCl (Venlafaxine Hcl Er 37.5 Mg Cap.Er.24h) 112.5 mg PO DAILY [facility] Last Admin: 06/30/23 08:15 Dose: 112.5 mg Allergies Allergies Allergy/AdvReac Type Severity Reaction Status Date / Time No Known Allergies Allergy Verified 01/12/21 14:30 [No Known Allergies*] Assessment & Plan Assessment & Plan (1) Severe benzodiazepine use disorder: Status: Acute Code(s): F13.20 - Sedative, hypnotic or anxiolytic dependence, uncomplicated (2) Anxiety: Status: Acute Code(s): F41.9 - Anxiety disorder, unspecified (3) Severe mood disorder with psychotic features: Status: Acute Code(s): F39 - Unspecified mood [affective] disorder Plan 23 yo male, history of benzodiazepine dependence, anxiety, mood disorder, psychosis, brought in by family due to emergence of psychotic symptoms possibly in the context of benzodiazepine abuse and intoxication. Pt reports severe anxiety, with the worst times between 0154-7169 daily. Father reports use is out of control, stating pt has recently taken $700 to purchase benzodiazepines prior to admission. Plan: Collateral contacts Re-establish regime Monitor sx Full milieu Propranolol 5 mg 1400. 06/25/23- Continue tx 06/26/23- Continue tx 06/27 continue tx 06/28 continue tx plan 06/29/23 Continue tx plan 06/30/23 Discharge planning. Patient educated on: therapeutic strategies Informed Consent: understands Reason for continued inpatient stay Substantial Risk for: rapid decompensation Time Spent With Patient Time: Total time managing care of this patient today ____ minutes.
[2023-06-30 17:09] VITALS: BP 119/64; PULSE 118; RESP 16; TEMP 36.2; O2SAT 97
[2023-06-30] MEDS: Mirtazapine 15 MG TABLET PO (20:10)
[2023-07-01] MEDS: Omeprazole 20 MG CAPSULE.DR PO (06:24)
[2023-07-01] MEDS: Venlafaxine HCl ER 37.5 MG CAP.ER.24H 112.5 MG PO (08:12)
[2023-07-01] MEDS: methADONE HCl 20 MG/2 ML ORAL.CONC 140 MG PO (08:12)
[2023-07-01] MEDS: Lithium Carbonate ER 450 MG TABLET.ER PO (08:12)
[2023-07-01] MEDS: Propranolol HCL 10 MG TABLET 5 MG PO (08:12)
[2023-07-01] MEDS: Nicotine Polacrilex 2 MG GUM 4 MG BUCCAL ×2 (08:12→13:15)
[2023-07-01] MEDS: chlorproMAZINE HCl 25 MG TABLET PO (08:12)
[2023-07-01 08:17] VITALS: BP 124/83; PULSE 96; RESP 18; TEMP 36.4; O2SAT 100
[2023-07-01] MEDS: clonazePAM 1 MG TABLET PO ×2 (08:40→14:00)
--- NOTE | 2023-07-01 13:31 | P.PNPSI_ITS ---
Subjective Subjective Reason For Visit: Disorganized Diagnostics Vital Signs (24Hr): Vital Signs - 24 hr 06/30/23 17:09 07/01/23 08:17 Temperature 97.2 F 97.6 F Pulse Rate 118 H 96 Respiratory Rate 16 18 Blood Pressure 119/64 124/83 Pulse Oximetry 97 100 Oxygen Delivery Method Room Air Room Air BMI result Body Mass Index 32.3 Labs 06/20/23 11:02 06/20/23 11:02 Medications Medications Current Medications Acetaminophen (Acetaminophen 325 Mg Tablet) 650 mg PO Q6H PRN PRN Reason: Headache/Pain Mild Scale (1-3) Al Hydroxide/Mg Hydroxide (Magnesium Hydrox/Alum Hydrox 30 Ml Oral.Susp) 30 ml PO Q6H PRN PRN Reason: Heartburn/Nausea Chlorpromazine HCl (Chlorpromazine Hcl 25 Mg Tablet) 25 mg PO BID PRN PRN Reason: nausea, racing thoughts Last Admin: 07/01/23 08:12 Dose: 25 mg Clonazepam (Clonazepam 1 Mg Tablet) 1 mg PO TID [facility] Last Admin: 07/01/23 08:40 Dose: 1 mg Hydroxyzine HCl (Hydroxyzine Hcl 25 Mg Tablet) 25 mg PO Q6H PRN PRN Reason: Anxiety Last Admin: 06/27/23 11:07 Dose: 25 mg [place] Carbonate ([place] Carbonate Er 450 Mg Tablet.Er) 450 mg PO BID [facility] Last Admin: 07/01/23 08:12 Dose: 450 mg Magnesium Hydroxide (Milk Of Magnesia 30 Ml Oral.Susp) 30 ml PO DAILY PRN PRN Reason: Constipation Methadone HCl (Methadone Hcl 20 Mg/2 Ml Oral.Conc) 140 mg PO DAILY [facility] Last Admin: 07/01/23 08:12 Dose: 140 mg Mirtazapine (Mirtazapine 15 Mg Tablet) 15 mg PO BEDTIME [facility] Last Admin: 06/30/23 20:10 Dose: 15 mg Nicotine (Nicotine 21 Mg Patch.Td24) 21 mg TRANSDERMA DAILY PRN PRN Reason: smoking cessation Last Admin: 06/30/23 08:15 Dose: 21 mg Nicotine Polacrilex (Nicotine Polacrilex 2 Mg Gum) 4 mg BUCCAL Q2H PRN PRN Reason: Nicotine Cravings Last Admin: 07/01/23 13:15 Dose: 4 mg Olanzapine (Olanzapine 5 Mg Tablet) 5 mg PO TID PRN PRN Reason: agitation Omeprazole (Omeprazole 20 Mg Capsule.Dr) 20 mg PO DAILY@0630 [facility] Last Admin: 07/01/23 06:24 Dose: 20 mg Propranolol HCl (Propranolol Hcl 10 Mg Tablet) 5 mg PO BID [facility]; Protocol Last Admin: 07/01/23 08:12 Dose: 5 mg Trazodone HCl (Trazodone Hcl 50 Mg Tablet) 50 mg PO BEDTIME MRX1 PRN PRN Reason: Insomnia Venlafaxine HCl (Venlafaxine Hcl Er 37.5 Mg Cap.Er.24h) 112.5 mg PO DAILY [facility] Last Admin: 07/01/23 08:12 Dose: 112.5 mg Allergies Allergies Allergy/AdvReac Type Severity Reaction Status Date / Time No Known Allergies Allergy Verified 01/12/21 14:30 [No Known Allergies*] Assessment & Plan Assessment & Plan (1) Severe benzodiazepine use disorder: Status: Acute Code(s): F13.20 - Sedative, hypnotic or anxiolytic dependence, uncomplicated (2) Anxiety: Status: Acute Code(s): F41.9 - Anxiety disorder, unspecified (3) Severe mood disorder with psychotic features: Status: Acute Code(s): F39 - Unspecified mood [affective] disorder Plan 23 yo male, history of benzodiazepine dependence, anxiety, mood disorder, psychosis, brought in by family due to emergence of psychotic symptoms possibly in the context of benzodiazepine abuse and intoxication. Pt reports severe anxiety, with the worst times between 5424-0858 daily. Father reports use is out of control, stating pt has recently taken $700 to purchase benzodiazepines prior to admission. Plan: Collateral contacts Re-establish regime Monitor sx Full milieu Propranolol 5 mg 1400. 06/25/23- Continue tx 06/26/23- Continue tx 06/27 continue tx 06/28 continue tx plan 06/29/23 Continue tx plan 06/30/23 Discharge planning. Time Spent With Patient Time: Total time managing care of this patient today ____ minutes.
--- NOTE | 2023-07-06 10:43 | PM.PSYDC ---
DS: Providers Provider Date of Service: 07/01/23 Date of admission: 06/21/23 14:37 Date of discharge: 07/01/23 Primary care physician: Unknown Physician Admitting clinician: Elizabeth Barrios Attending physician on admission: Riki Che Attending physician on discharge: Riki Che DS: Diagnosis Discharge Diagnosis (1) Severe benzodiazepine use disorder: Status: Inactive (2) Anxiety: Status: Acute (3) Severe mood disorder with psychotic features: Status: Inactive DS: Medications Discharge Medications Home Medications: Home Medications Medication Instructions Recorded Confirmed methadone 10 mg/mL oral concentrate 140 mg PO DAILY 05/01/23 06/21/23 mirtazapine 15 mg tablet 15 mg PO BEDTIME 05/01/23 06/20/23 Previous Rx's Medication Instructions Recorded chlorpromazine 25 mg tablet 25 mg PO BID PRN nausea. severe 05/07/23 anxiety 30 days #60 tabs lithium carbonate 450 mg 450 mg PO BID 30 days #60 tabs 05/07/23 tablet,extended release multivitamin (Daily-[place] tablet) 1 tab PO DAILY 30 days #30 tabs 05/07/23 omeprazole 20 mg capsule,delayed 20 mg PO DAILY 30 days #30 caps 05/07/23 release venlafaxine 37.5 mg 112.5 mg (3 x 37.5 mg) PO DAILY 30 05/07/23 capsule,extended release 24 hr days #90 caps clonazepam 1 mg tablet (Klonopin) 1 mg PO TID #21 tabs 07/01/23 hydroxyzine HCl 25 mg tablet 25 mg PO Q6H PRN Anxiety #0 tabs 07/01/23 nicotine (polacrilex) 2 mg gum 4 mg buccal Q2H PRN Nicotine 07/01/23 Cravings #0 ea nicotine 21 mg/24 hr daily 21 mg transdermal DAILY PRN 07/01/23 transdermal patch smoking cessation #0 ea olanzapine 5 mg tablet 5 mg PO TID PRN agitation #0 tabs 07/01/23 propranolol 10 mg tablet 5 mg PO BID #0 tabs 07/01/23 trazodone 50 mg tablet 50 mg PO BEDTIME MRX1 PRN Insomnia 07/01/23 #0 tabs Mental Status Exam Mental Status Exam Patient Appearance: Appropriate Patient Orientation: Person, Place, Time and Situation Level of Consciousness: Alert Patient Behavior: Appropriate, Talkative and Good Eye Contact Mood Description: Anxious Affect Description: Anxious Patient Cognition Impaired: No Ability to Follow Directions: Good Speech Pattern: Spontaneous Speech Memory Description: Intact Hallucinations: None Delusions: Not Present Perceptual Disturbances: Depersonalization and Derealization Thought Process: Rumination Thought Content: positive for Circumstantial and positive for Suicidal Ideation (denies) Depressive Symptoms: Increased Anxiety Judgement: Good DS: Summary Hospital Course Hospital Course: Admission to adult psychiatry for exacerbation of anxiety, bipolar disorder. Pt, per family was reportedly disoriented, self-dialoguing, overtaking and undertaking medicines, then stopped meds. Anxiety was so severe pt was vomiting and in bed, unable to function he reported. He was very agitated in the ER and attempted a Xanax OD in the restroom during evaluation. Family is unable to have him at home any longer, mother has a restraining order and father reports pt has been taking money from him to purchase medications on the street. By history, pt reports [place], Venlafaxine, Thorazine and Klonopin are helpful to control sx. This regime was restarted. Propranolol was added. The team did an extensive rehab search and a bed was secured for further care with the [facility]. Pt participated in milieu and with peers, was able to work through some past issues with other programs where he had negative experience, and was agreeable to [facility] trial, where he discharged to today. Status at Discharge Functional status at discharge: independent ambulation Overall status at discharge: patient is progressing back to baseline Time Spent with Patient Time attestation: Total time managing care of this patient today ____ minutes. Time spent: Greater than 30 minutes Discharge Plan Discharge Anticipated Discharge Date/Time: 07/01/23 15:00 Patient Disposition: Xfer Inpatient Rehab Fac Discharge Diagnosis: Bipolar Disorder Anxiety Referrals: [facility] [Other] - 1 Week (Patient accepted to [facility] Residential Program ) [facility] [Other] - 1 Week (Patient referred to [facility] Dual Diagnosis program Patient should follow-up weekly after discharge to assess placement of wait-list) Physician,Unknown J [Primary Care Provider] - 1 Week Discharge Medications: New nicotine 21 mg/24 hr Patch 24 Hour 21 mg transdermal DAILY PRN (Reason: smoking cessation) Qty: 0 0RF nicotine (polacrilex) 2 mg Gum 4 mg buccal Q2H PRN (Reason: Nicotine Cravings) Qty: 0 0RF trazodone 50 mg Tablet 50 mg PO BEDTIME MRX1 PRN (Reason: Insomnia) Qty: 0 0RF olanzapine 5 mg Tablet 5 mg PO TID PRN (Reason: agitation) Qty: 0 0RF propranolol 10 mg Tablet 5 mg PO BID Qty: 0 0RF Protocol: Hold for SBP/HR < HOLD for SBP < : 90 HOLD for HR < : 60 hydroxyzine HCl 25 mg Tablet 25 mg PO Q6H PRN (Reason: Anxiety) Qty: 0 0RF clonazepam [Klonopin] 1 mg tablet 1 mg PO TID Qty: 21 0RF Continued mirtazapine 15 mg tablet 15 mg PO BEDTIME methadone 10 mg/mL Concentrate 140 mg PO DAILY Rx Instructions: Last dose confirmed with [facility] 140mg 06/20/23 venlafaxine 37.5 mg Capsule,Extended Release 24hr 112.5 mg PO DAILY 30 Days Qty: 90 0RF lithium carbonate 450 mg Tablet Extended Release 450 mg PO BID 30 Days Qty: 60 0RF chlorpromazine 25 mg Tablet 25 mg PO BID PRN (Reason: nausea. severe anxiety) 30 Days Qty: 60 0RF omeprazole 20 mg Capsule,Delayed Release(Dr/Ec) 20 mg PO DAILY 30 Days Qty: 30 0RF multivitamin [Daily-Edna] Tablet 1 tab PO DAILY 30 Days Qty: 30 0RF Discontinued clonazepam 1 mg tablet 1 mg PO BID PRN (Reason: Anxiety) Discharge Orders: Discharge Order (Routine); Ordered 07/01/23 Ordered By: Elizabeth Barrios Diet: Advance to usual diet Activity on Discharge: As tolerated Stand Alone Forms: Patient Portal Discharge page, Community Support Care Plan Goals: Mood and Behavioral Stabilization Health Concerns: Mood and Behavioral Stabilization Plan of Treatment: Pt will be admitted to [facility] for ongoing treatment Assessment: Pt interviewed prior to discharge and found to be fully oriented and without SI/HI. Pt has insight and demonstrates good judgment in terms of wanting to pursue treatment. Pt is not in imminent risk of harm to self or others and has a safety plan that includes presenting to the closest ER or calling 911 if feeling unsafe. He is agreeable with the plan to continue [facility]. Pt has been observed closely by nursing and unit staff throughout admission. Pt has not engaged in any behaviors that suggest dangerousness to self or others and has demonstrated appropriate behaviors and impulse control. Discharge Date/Time: 07/01/23 14:31
== END 2023-07-01 14:31 | DRG 885 ==
LOC: HO.ED 15:16 → HO.PM5 06-21 14:45
PROVIDERS: Registered Nurse Emergency; Admitting Provider Psychiatry & Neurology Psychiatry; Emergency Provider Student in an Organized Health Care Education/Training Program; Visit Provider Clinical Nurse Specialist Psychiatric/Mental Health, Adult
DX: F31.9 Bipolar disorder, unspecified (principal); F13.20 Sedative, hypnotic or anxiolytic dependence, uncomplicated; F11.20 Opioid dependence, uncomplicated; F41.9 Anxiety disorder, unspecified; F12.20 Cannabis dependence, uncomplicated; F43.10 Post-traumatic stress disorder, unspecified; F17.210 Nicotine dependence, cigarettes, uncomplicated; Z20.822 Contact with and (suspected) exposure to COVID-19; Z71.6 Tobacco abuse counseling; Z79.899 Other long term (current) drug therapy
CPT/HCPCS: 36415; 80048; 80061; 80143; 80178; 80179; 80307; 81003; 83036; 85025; 87635; 93005; 99285; S9485

== ENCOUNTER → 2023-06-21 09:17 | Outpatient (BNV) | payer OTHER, SELFPAY | PROVIDERS: Admitting Provider Psychiatry & Neurology Psychiatry; Emergency Provider Student in an Organized Health Care Education/Training Program; Visit Provider Internal Medicine Cardiovascular Disease | DX: R00.1 Bradycardia, unspecified (principal) | CPT/HCPCS: 93010 ==

== ENCOUNTER 2023-06-21 14:37 | Outpatient (BNV) | payer OTHER, SELFPAY | END 2023-06-29 13:07 | PROVIDERS: Admitting Provider Psychiatry & Neurology Psychiatry; Emergency Provider Student in an Organized Health Care Education/Training Program; Visit Provider Internal Medicine Cardiovascular Disease | DX: I45.81 Long QT syndrome (principal) | CPT/HCPCS: 93010 ==

== ENCOUNTER → 2023-06-21 14:37 | Outpatient (BNV) | payer OTHER, SELFPAY | PROVIDERS: Admitting Provider Psychiatry & Neurology Psychiatry; Emergency Provider Student in an Organized Health Care Education/Training Program; Visit Provider Clinical Nurse Specialist Psychiatric/Mental Health, Adult | DX: F39 Unspecified mood [affective] disorder (principal); F13.20 Sedative, hypnotic or anxiolytic dependence, uncomplicated; F41.9 Anxiety disorder, unspecified | CPT/HCPCS: 90792; 99231; 99232; 99239 ==

== ENCOUNTER 2024-07-18 10:23 | Inpatient (IN) | payer MEDICAID, SELFPAY ==
[2024-07-18 10:25] VITALS: BP 133/64; PULSE 89; RESP 18; TEMP 37; O2SAT 99; BMI 33.0
[2024-07-18 10:45] LABS: MANUAL DIFF FLAG NO
[2024-07-18 10:46] LABS: Basophils Absolute Auto 0.1 X10*3/uL (0.0-0.2); Basophils Percent Auto 1.6 % (0-2); Eosinophils Absolute Auto 0.3 X10*3/uL (0.0-0.4); Eosinophils Percent Auto 5.4 % (0-4); Hematocrit 41.4 % (42.0-52.0); Hemoglobin 13.9 g/dl (14.0-18.0); Imm Gran Abs Auto 0.02 X10*3/uL (0.00-0.03); Imm Gran Pct Auto 0.3 % (0.0-0.4); Lymphocytes Absolute Auto 1.5 X10*3/uL (1.2-4.9); Mean Corpuscular HGB Conc 33.6 g/dl (31.0-36.0); Mean Corpuscular Hemoglobin 30.8 pg (27.0-33.0); Mean Corpuscular Volume 91.6 fL (80.0-98.0); Mean Platelet Volume 11.3 fL (9.4-12.4); Monocytes Absolute Auto 0.3 X10*3/uL (0.1-1.2); Monocytes Percent Auto 5.2 % (2-11); Neutrophils Absolute Auto 3.9 x10*3/uL (2.0-8.3); Neutrophils Percent Auto 63.5 % (45-73); Platelet Count 183 X10*3/uL (160-400); Red Blood Count 4.52 X10*6/uL (4.60-5.80); Red Cell Distribution Width 13.1 % (11.0-16.0); White Blood Count 6.2 X10*3/uL (4.8-10.8)
[2024-07-18 10:48] VITALS: RESP 16
--- NOTE | 2024-07-18 10:50 | ED_ITS ---
HPI - Psych General Chief Complaint: Psychiatric Symptoms Stated Complaint: Crisis Time Seen by Provider: 07/18/24 10:45 Source: patient, RN notes reviewed and old records reviewed Mode of arrival: ambulatory Limitations: no limitations History of Present Illness ED Provider: Batsheva HPI Narrative: Patient is a 24-year-old male with history of anxiety, bipolar disorder, schizophrenia, panic disorder, opioid use disorder on methadone, was clean for 13 months prior to recent relapse. Reports increased panic attacks, states is happening daily. Reports taking his medications as prescribed. Denies any recent changes in medication. Vague suicidal ideation without plan, denies homicidal ideation or auditory or visual hallucinations. States that he feesl he needs inpatient treatment at this time. Denies any physical complaints. MD complaint: suicidal ideation, feels depressed, anxiety and substance abuse History of same: Yes Context: significant life stressor Associated psychiatric symptoms: suicidal ideation If self harm: admits thoughts of self harm Related Data Home Medications ?Medication ?Instructions ?Recorded ?Confirmed methadone 10 mg/mL oral concentrate 150 mg PO DAILY 05/01/23 07/18/24 mirtazapine 15 mg tablet 15 mg PO BEDTIME 05/01/23 07/18/24 clonazepam 1 mg tablet (Klonopin) 1 mg PO BID 07/18/24 07/18/24 Previous Rx's ?Medication ?Instructions ?Recorded chlorpromazine 25 mg tablet 25 mg PO BID PRN nausea. severe 05/07/23 anxiety 30 days #60 tabs lithium carbonate 450 mg 450 mg PO BID 30 days #60 tabs 05/07/23 tablet,extended release venlafaxine 37.5 mg 112.5 mg (3 x 37.5 mg) PO DAILY 30 05/07/23 capsule,extended release 24 hr days #90 caps Allergies Allergy/AdvReac Type Severity Reaction Status Date / Time No Known Allergies Allergy Verified 07/18/24 10:26 [No Known Allergies*] Review of Systems 2 Review of Systems: As per HPI Yes all other systems are reviewed and are negative Constitutional: Constitutional: Reports as per HPI PMF Past Medical History Medical History (Updated 07/18/24 @ 12:37 by Carolina Herman NP) Severe mood disorder with psychotic features PTSD (post-traumatic stress disorder) Opioid use disorder, severe, on maintenance therapy Cannabis use disorder, severe, dependence Severe benzodiazepine use disorder Anxiety Depression Opioid use disorder Social History Social History Household Members: Other Household Members Other:: father Housing: House Do you presently have visiting nurse or other home services: No Alcohol intake: never Patient Tobacco Use Status: Current everyday Tobacco user Tobacco use type: Cigarette Cigarette Packs Per Day: 2 Cigarettes Per Day: 40.0 Years Smoked: 5 Smoked in Last 30 Days: Yes e-Cigarette/Vaping Use: Currently Using Second Hand Smoke Exposure: Yes Use of substances other than those prescribed or required for medical reasons: Yes Substance Use Type: Crack/Cocaine, Heroin and Opiates Substance Use Frequency: Recent Binge Last Used Substance: Hours (ago) Any prior treatment program specific to substance use: Yes (methadone program) Advance Directives: No Advance Directives Information Provided: Yes service: No Sexual orientation: Straight/Heterosexual Physical Exam 2 Vital Signs: Vital Signs: Last Vital Signs Temp 98.6 F 07/18/24 10:25 Pulse 89 07/18/24 10:25 Resp 16 07/18/24 10:48 BP 133/64 07/18/24 10:25 Pulse Ox 99 07/18/24 10:25 O2 Del Method Room Air 07/18/24 10:25 BMI result Body Mass Index 33.0 Vital signs have been reviewed and appear to be correct. Blood pressure normal. Heart rate normal. Respiratory rate normal. Temperature normal. Oxygen saturation normal. Const: General: cooperative, healthy appearing and no acute distress O rientation/consciousness: oriented to person, oriented to place, oriented to time and patient oriented x3 Limitations: no limitations HEENT: Head: Yes normocephalic and Yes atraumatic Ears: external ears normal General nose exam: Normal external nose present Face and sinus: Yes face symmetric Mouth: oropharynx normal and moist mucous membranes Throat: Yes uvula midline Eyes: Pupils: Equal, round and reactive pupils present Neck: Neck: Yes normal visual inspection and Yes supple Resp: Effort & Inspection: normal respiratory effort and able to speak in complete sentences Auscultation: clear to auscultation bilaterally Cardio: Rate: regular rate Rhythm: regular rhythm Heart sounds: S1 normal heart sound present and S2 normal heart sound present GI: Palpation (GI): Soft to palpation and nontender Auscultation: n ormoactive bowel sounds : General: Yes no CVA tenderness Back/Spine/Pelvis: Back: no CVA tenderness Skin: General skin exam: elasticity normal and turgor normal Neuro: General: oriented to person, oriented to place, oriented to time, patient oriented x3, moves all extremities, no focal motor deficits and CN's II- XI intact bilaterally Cranial nerves: Yes Equal, round and reactive pupils present Cognition (Neuro): normal cognition Extrem: General: Yes full ROM, Yes no pedal edema and Yes no calf tenderness Psych: Appearance: grossly normal Mental Status: mental status grossly normal Speech and movement: Normal speech and movement present Affect: n ormal affect Attitude: cooperative Thought process: Normal thought process present Thought content: Suicidality present, no homicidality, no hallucinations and Depressive thoughts present Course Course Course Narrative: observation care revealed that the patient does meet psychiatric necessity for hospitalization. patient completed observation at 6pm. He is to get admitted upstairs Medical Decision Making Medical Decision Making [facility] Narrative: Patient is a 24-year-old male with history of anxiety, bipolar disorder, schizophrenia, panic disorder, opioid use disorder on methadone, was clean for 13 months prior to recent relapse. On exam patient is awake, A+Ox3, VS WNL, afebrile, normal neurological exam without focal deficits, physical exam findings as above. Given reported symptoms and physical exam findings, initial differential includes but is not limited to anxiety, depression, bipolar disorder, substance use. Labs unremarkable. Urinalysis is without evidence of infection. Urine drug screen positive for opiates, methadone, fentanyl, benzos, THC. Patient medically cleared for care team evaluation at this time and placed on physician observation pending disposition. Differential Diagnosis Differential Diagnoses: The differential diagnosis associated with the presentation includes As per [facility] Admission/Observation Consideration of admission/observation: Escalation of care including admission/observation considered Consult Healthcare Provider Management of the patient was discussed with: Behavioral Health Provider Lab Data [facility] Lab Attestation statement: I reviewed the patient's lab results. As per [facility] 07/18/24 10:39 07/18/24 10:39 Labs: Lab Results 07/18/24 07/18/24 Range/Units 10:39 11:15 WBC 6.2 (4.8-10.8) X10*3/uL RBC 4.52 L (4.60-5.80) X10*6/uL Hgb 13.9 L (14.0-18.0) g/dl Hct 41.4 L (42.0-52.0) % MCV 91.6 (80.0-98.0) fL MCH 30.8 (27.0-33.0) pg MCHC 33.6 (31.0-36.0) g/dl RDW 13.1 (11.0-16.0) % Plt Count 183 D (160-400) X10*3/uL MPV 11.3 (9.4-12.4) fL Immature Gran % (Auto) 0.3 (0.0-0.4) % Neut % (Auto) 63.5 (45-73) % Lymph % (Auto) 24.0 (20-40) % [place] % (Auto) 5.2 (2-11) % Eos % (Auto) 5.4 H (0-4) % Baso % (Auto) 1.6 (0-2) % Lymph # (Auto) 1.5 (1.2-4.9) X10*3/uL [place] # (Auto) 0.3 (0.1-1.2) X10*3/uL Eos # (Auto) 0.3 (0.0-0.4) X10*3/uL Baso # (Auto) 0.1 (0.0-0.2) X10*3/uL Abs Immat Gran (auto) 0.02 (0.00-0.03) X10*3/uL Absolute Neuts (auto) 3.9 (2.0-8.3) x10*3/uL Absolute Nucleated RBC 0.000 (0.0-0.012) X10*3/uL Nucleated RBC % (auto) 0.0 (0.0-0.2) /100WBC Sodium 143 (135-145) mmol/L Potassium 3.7 (3.3-5.1) mmol/L Chloride 108 (96-108) mmol/L Carbon Dioxide 26 (22-29) mmol/L Anion Gap 13 (12-20) BUN 4 L (9-16) mg/dL Creatinine 0.92 (0.5-1.4) mg/dL Estim Creat Clear Calc 160.5 Estimated GFR > 60 Random Glucose 119 H (60-115) mg/dL Calcium 9.6 (8.4-10.2) mg/dL Urine Color Yellow Urine Appearance Clear Urine pH 7.0 (5.0-9.0) Ur Specific [place] 1.015 (1.005-1.025) Urine Protein Trace (Neg-Trace) mg/dL Urine Glucose (UA) Negative (Negative) mg/dL Urine Ketones Trace (Negative) mg/dL Urine Blood Negative (Negative) Urine Nitrite Negative (Negative) Ur Leukocyte Esterase Trace H (Negative) Urine RBC 0-2 (0-2) /HPF Urine WBC 0-5 (0-5) /HPF Ur Squamous Epith Cells 0-2 (0-2) /HPF Urine Bacteria None Seen (None Seen) Hyaline Casts 0-2 (0-2) /LPF Urine Opiates Screen POSITIVE H (Not Detect) Ur Buprenorphine Scrn Not Detected (Not Detect) ng/mL Ur Oxycodone Screen Not Detected (Not Detect) ng/mL Urine Methadone Screen Positive H (Not Detect) ng/mL Urine Fentanyl Screen POSITIVE H (Not Detect) Ur Barbiturates Screen Not Detected (Not Detect) Ur Phencyclidine Scrn Not Detected (Not Detect) Ur Amphetamines Screen Not Detected (Not Detect) U Benzodiazepines Scrn POSITIVE H (Not Detect) Urine Cocaine Screen Not Detected (Not Detect) U Marijuana (THC) Screen POSITIVE H (Not Detect) Ethyl Alcohol < 10 mg/dL External Record Review External record reviewed: Inpatient record, Office record and Outpatient record Discharge Plan Discharge Clinical Impression: Anxiety, Suicidal ideation Patient Disposition: Admitted As Inpatient Interventions: Park-Suicide Risk Severity Scale Last Done: 07/18/24 10:48
[2024-07-18 10:57] LABS: Anion Gap 13 (12-20); Blood Urea Nitrogen 4 mg/dL (9-16); Calcium 9.6 mg/dL (8.4-10.2); Carbon Dioxide 26 mmol/L (22-29); Chloride 108 mmol/L (96-108); Creatinine Clr Calc Pharmacy 160.5; Estimated Glomerular Filt Rate > 60; Glucose Random 119 mg/dL (60-115); Potassium 3.7 mmol/L (3.3-5.1); Sodium 143 mmol/L (135-145)
[2024-07-18 11:24] LABS: Appearance Urine Clear; Color Urine Yellow; Glucose Urine UA Negative (Negative); Leukocyte Esterase Urine Trace (Negative); Nitrite Urine Negative (Negative); Specific Gravity - Urine 1.015 (1.005-1.025); UMIC TRIGGER UACC YES; Urine Blood Negative (Negative); Urine Ketones Trace mg/dL (Negative); Urine Protein Trace mg/dL (Neg-Trace)
[2024-07-18 11:26] LABS: Bacteria Urine None Seen (None Seen); Hyaline Casts Urine 0-2 /LPF (0-2); RBC Urine 0-2 /HPF (0-2); Squamous Epithelial Cell Urine 0-2 /HPF (0-2); WBC Urine 0-5 /HPF (0-5)
[2024-07-18 11:27] LABS: Ethanol < 10 mg/dL
[2024-07-18 11:33] LABS: Amphetamine Screen Urine Not Detected (Not Detect); Barbiturates, Urine Not Detected (Not Detect); Benzodiazepines Screen Urine POSITIVE (Not Detect); Buprenorphine Scr Not Detected (Not Detect); Cannabinoid Screen Urine POSITIVE (Not Detect); Cocaine Screen Urine Not Detected (Not Detect); Fentanyl, urine POSITIVE (Not Detect); Methadone Screen, Urine Positive (Not Detect); Opiate Screen Urine POSITIVE (Not Detect); Oxycodone Screen Urine Not Detected (Not Detect); Phencyclidine Screen Urine Not Detected (Not Detect)
--- NOTE | 2024-07-18 11:59 | PC.NURSE ---
Per father, patient has an extensive history of tucking and hiding items under skin folds and in orfices. from security was in with patient during change manager. Patient exited bathroom after change manager, was shown his room and then immediately went back to the bathroom, BHAVESH Villaseñor observed patient via the mirror while in bathroom. he was observed to be grabbing at something in his pants and was very startled when BHAVESH Villaseñor knocked on the door. patient reports he was just attempting to urinate despite just using the bathroom. Patient apologized and verbalized understanding that if he is hiding something now would be the time to let staff know to avoid further issues or additional searches. patient declines having any contraband at this time
--- OUTSIDE RECORDS SUMMARY | 2024-07-18 12:36 | XMS_ITS | Encounter Summary ---
Author Organization [facility] Address [address] [place] [address] Phone Care Team Providers Care Straw Boss Name Role Phone Amador Smith MD Primary Care Provider [phone] Encounter Details Date Type Department Care Team (Late st Contact Info) Description 12/09/2010 Conversion Encounter [facility] - [address] [address] Social History Tobacco Use Types Packs/Day Years Used Date Smoking Tobacco: Never Assessed Sex and Gender Information Value Date Recorded Sex Assigned at Not on file Legal Sex Male 6:15 PM EDT Gender Identity Not on file Sexual Orientation Not on file documented as of this encounter Plan of Treatment Not on file documented as of this encounter Visit Diagnoses Not on filedocumented in this encounter Care Teams Straw Boss Relationship Specialty Start Date End Date Amador Smith MD [address] [place] [address] PCP - General 10/07/17 documented as of this encounter
--- OUTSIDE RECORDS SUMMARY | 2024-07-18 12:36 | XMS_ITS | Encounter Summary ---
Author Organization [facility] Address [address] [place] [address] Phone Care Team Providers Care Plant Operator Helper Name Role Phone Amador Smith MD Primary Care Provider Reason for Visit * Reason Comments Med Refill Encounter Details Date Type Department Care Team (Late st Contact Info) Description 03/09/2018 Refill [facility] - [address] [address] Amador Smith MD [address] [place] [address] Anxiety Social History Tobacco Use Types Packs/Day Years Used Date Smoking Tobacco: Never Smokeless Tobacco: Never Comments:Never Smoker Sex and Gender Information Value Date Recorded Sex Assigned at Not on file Legal Sex Male 6:15 PM EDT Gender Identity Not on file Sexual Orientation Not on file documented as of this encounter Miscellaneous Notes * Telephone Encounter - Amador Smith MD - 03/15/2018 11:44 AM EDT Who is provided his meds for his mental health? He doesn't need to see me if has mental health provider, unless desired. documented in this encounter Plan of Treatment Not on file documented as of this encounter Visit Diagnoses Diagnosis Anxiety Anxiety state, unspecified documented in this encounter Care Teams Plant Operator Helper Relationship Specialty Start Date End Date Amador Smith MD [address] [place] [address] PCP - General 10/07/17 documented as of this encounter
--- OUTSIDE RECORDS SUMMARY | 2024-07-18 12:36 | XMS_ITS | Clinical Summary ---
Author Organization [facility] Address [address] [place] [address] Phone Care Team Providers Care Development Intern Name Role Phone Amador Smith MD Primary Care Provider [phone] Allergies No known active allergies Medications clonazePAM 0.5 MG tablet Take 1 tablet by mouth 2 (two) times a day. 1 03/04/2018 Active mirtazapine 7.5 MG tablet Take 1 tablet by mouth nightly. 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) Onset: 01/09/2017 Added by: Amador Smith Sprain and strain of cruciat e ligament of knee 12/10/2016 01/23/2018 Overview (01/13/2018): ACL tear (844.2) Onset: 12/10/2016 Added by: Amador Smith Extrinsic asthma 11/20/2015 01/23/2018 Overview (01/13/2018): exercise induced bronchospasm (493.00) Onset: 11/20/2015 Added by: Amador Smith Other and unspecified hyperlipidemia 08/15/2014 01/23/2018 Overview (01/13/2018): Familial hyperlipidemia (272.4) Onset: 08/15/2014 Added by: Amador Smith Other acne 05/13/2011 01/23/2018 Overview (01/13/2018): Acne (706.1) Onset: 05/13/2011 Added by: Amador Smith Immunizations Immunization Administration Dates Next Due DTaP 5 03/07/2003, 0,1998,06/28,1998 HPV, Quadrivalent 08/15/2014,03/02/2014,10/15/19 14 Hep A, ped/adol 03/02/2014,06/24/2013 Hep B, ped/adol 1998,1998,1998 Hib (PRP-T) 05/28/1999, 9,1998,04/23 IPV 03/01/2002, 9,1998,04/23 Influenza, injectable, triva lent, preservative free 03/02/2008,04/01/2007,05/05/2006,03/10,05/11/2003,04/12/2003 Influenza, intranasal, quadrivalent 03/02/2014,0 06/24/2013 Influenza, intranasal, trivalent 02/11/2012,03/02 MMR 03/07/2003,05/28/1999 Meningococcal B Trumenba 01/13/2018,12/10/2016 Meningococcal Conj (Menactra) MCV4P 06/24/2013,1 06/30/2009 Rotavirus Pentavalent 1998,1998 Tdap 04/30/2010 Varicella 04/17/2009,02/27/1999 Social History Tobacco Use Types Packs/Day Years Used Date Smoking Tobacco: Never Smokeless Tobacco: Never Comments:Never Smoker Sex and Gender Information Value Date Recorded Sex Assigned at Not on file Legal Sex Male 6:15 PM EDT Gender Identity Not on file Sexual Orientation Not on file Last Filed Vital Signs Vital Sign Reading Time Taken Comments Blood Pressure 122/80 01/13/2018 3:27 PM EDT XL cuff Pulse 79 01/13/2018 3:27 PM EDT Temperature 36.8 ??C (98.3 ??F) 07/20/2013 4:38 PM ES T Respiratory Rate - - Oxygen Saturation 98% 01/13/2018 3:27 PM EDT Inhaled Oxygen Concentration - - Weight 76.9 kg (169 lb 9.6 oz) 01/13/2018 3:27 P M EDT Height 184.2 cm (6' 0.5 ) 01/13/2018 3:27 PM EDT Body Mass Index 22.69 01/13/2018 3:27 PM EDT Plan of Treatment Health Maintenance Due Date Last Done Comments DTaP,Tdap,and Td Vaccines (7 - Td or Tdap) 04/30/2020 04/30/2010, 03/07/2003, 08/27/1999, Additional history exists Influenza Vaccines (#1) 2023 03/02/20 14, 06/24/2013, 02/11/2012, Additional history exists COVID-19 Vaccine ( season) 2024 Hepatitis B Vaccines Completed 1998, 1998, 1998 HIB Vaccines Completed 05/28/1999, 07/31, 1998, Additional history exists IPV Vaccines Completed 03/01/2002, 01/31, 1998, Additional history exists MMR Vaccines Completed 03/07/2003, 05/28/1999 Varicella Vaccines Completed 04/17/2009, 02/27/1999 Meningococcal Vaccine Aged Out 06/24/2013, 010 No longer eligible based on patient's age to complete this topic Hepatitis A Vaccines Completed 03/02/2014, 06/24/19 14 HPV Vaccines Completed 08/15/2014, 07/2013, 10/14/2013 Men B Vaccine Completed 01/13/2018, 12/10/2016 Pneumococcal Vaccine Aged Out No long er eligible based on patient's age to complete this topic Insurance [employer] Care Teams Development Intern Relationship Specialty Start Date End Date Amador Smith MD [address] [facility] [place] [address] PCP - General 10/07/17
--- OUTSIDE RECORDS SUMMARY | 2024-07-18 12:36 | XMS_ITS | Clinical Summary ---
Author Organization [facility] Address [address] [place] [address] Care Team Providers Care Gas Dispatcher Name Role Phone Mykel Marquis MD Primary Care Provider [phone] Social History Tobacco Use Types Packs/Day Years Used Date Smoking Tobacco: Never Assessed Intimate Partner Violence Answer Date R ecorded Fear of Current or Ex-Partner Not on file Emotionally Abused Not on file 01/22/2023 Physically Abused Not on file 01/22/2023 Sexually Abused Not on file 01/22/2023 Feel Safe at Home Not on file 01/22/2023 Sex and Gender Information Value Date Recorded Sex Assigned at Not on file Legal Sex Male 8:17 AM EDT Gender Identity Not on file Sexual Orientation Not on file Plan of Treatment Health Maintenance Due Date Last Done Comments Hepatitis C Screening 1998 HPV Vaccine (1 - Male 3-dose series) 2013 DTaP/Tdap/Td (1 - Tdap) 02/23/2016 Hep B (1 of 3 - 19+ 3-dose series) 2017 COVID-19 Vaccine ( - 2023-2 5 season) 2024 Influenza (#1) 2024 Zoster (Shingrix) (1 of 2) 02/23/2048 Hep A Aged Out No longer eligi ble based on patient's age to complete this topic Hib Aged Out No longer eligi ble based on patient's age to complete this topic Meningococcal ACWY Aged Out No longer eligible based on patient's age to complete this topic Pneumococcal Aged Out No longer eligi ble based on patient's age to complete this topic Insurance [facility] NAVIGATOR [facility] (POS) Care Teams Gas Dispatcher Relationship Specialty Start Date End Date Mykel Marquis MD [address] [address] PCP - General Internal Medicine 10/04/19
--- NOTE | 2024-07-18 13:22 | MHC.CARE ---
Patient evaluated by the CARE Team and will need an inpatient psychiatric hospitalization ED provider, Carolina Herman NP updated
--- NOTE | 2024-07-18 13:46 | PC.NURSE ---
patient is calm and cooperative, resting on couch in 8
--- NOTE | 2024-07-18 17:55 | PHA.MEDREC ---
Addendum entered by Roosevelt Abreu [facility] 07/18/24 18:33: Pharmacy unconfirmed methadon dose until methadone verification form is sent to pharmacy. RN states she will add on promethazine 12.5mg BID and alert provider. Original Note: Pharmacy Consult ? Medication Reconciliation Pharmacy has reviwewed the medication reconciliation completed by nursing. Messaged nurse to confirm the pt is no longer on promethazine 12.5mg bid as seen in pharmacy claims. Will amend note once they get an answer.
[2024-07-18] MEDS: chlorproMAZINE HCl 25 MG TABLET PO (18:43)
[2024-07-18] MEDS: Nicotine Polacrilex 2 MG GUM 4 MG BUCCAL ×2 (18:43→20:58)
[2024-07-18] MEDS: hydrOXYzine HCL 25 MG TABLET PO (18:43)
--- NOTE | 2024-07-18 18:47 | PC.NURSE ---
Pt arrived on the unit at 1830. Skin check completed by two RNs. Pt was noted to have bruises on upper left arm, various stages of healing. Pt also has scab on right middle finger, and left lower abdomen. Both are red around the edges, pt is concerned about infection. Pt oriented to the unit, given toiletries and prns for anxiety. Pt arrived on a CV. Admission deferred to next shift.
[2024-07-18 18:49] VITALS: BMI 34.6
[2024-07-18 18:50] VITALS: BP 152/78; PULSE 71; RESP 18; TEMP 36.5; O2SAT 100
[2024-07-18] MEDS: Lithium Carbonate ER 450 MG TABLET.ER PO (20:06)
[2024-07-18] MEDS: clonazePAM 1 MG TABLET PO (20:06)
[2024-07-18] MEDS: Mirtazapine 15 MG TABLET PO (20:06)
--- NOTE | 2024-07-19 01:09 | PC.ADMIT ---
Patient is a 24 year old single Kyrgyz speaking male, admitted as a CV admission to at 1830 07/18/24 and placed on 15 minute safety checks. Patient was medically cleared in the [facility] ED, evaluated by the CARE team and deemed in need of IPLOC secondary to having a relapse on opiates as well as depression, anxiety and SI. Precipitant per the CARE team assessment, patient was being evicted from a room he rented and was going to be homeless. Apparently the patient's parents brought him to the ED. Patient has a history of substance abuse and had been sober for approximately one year and then relapsed. Jeremy has been inpatient at [facility] in the past. He has also been at other facilities for his psychiatric and substance abuse issues. Patient was polite but eager to end admission process rather quickly. He denied any withdrawal symptoms, did not rate his anxiety or depression and denied any SI, HI, AVH. He signed legals and MARY. Patient said he did not have a therapist or PCP but did have a prescriber at [facility] and also uses the [facility]. As noted previously, patient has scabs on the right middle finger and left lower abdomen. Patient stated Yeah, I get these skin abscesses sometimes. No drainage noted. Patient afebrile, with no complaint of pain. Patient was not interested in doing a safety tool or signing belongings sheet or treatment plan. Next shift will be made aware.
[2024-07-19] MEDS: Nicotine Polacrilex 2 MG GUM 4 MG BUCCAL ×4 (04:06→20:19)
[2024-07-19] MEDS: chlorproMAZINE HCl 25 MG TABLET PO ×2 (04:06→20:19)
[2024-07-19 08:00] VITALS: BP 136/64; PULSE 63; RESP 16; TEMP 36.9; O2SAT 100
--- NOTE | 2024-07-19 08:06 | HE.PHANOTE ---
METHADONE CONFIRMATION FORM PATIENT TAKES 155 MG FROM [facility] LAST DOSE 07/18 @ 7274
[2024-07-19] MEDS: Venlafaxine HCl ER 37.5 MG CAP.ER.24H 112.5 MG PO (08:16)
[2024-07-19] MEDS: clonazePAM 1 MG TABLET PO ×2 (08:16→15:02)
[2024-07-19] MEDS: hydrOXYzine HCL 25 MG TABLET PO ×2 (08:17→20:18)
[2024-07-19] MEDS: Lithium Carbonate ER 450 MG TABLET.ER PO ×2 (08:17→20:18)
[2024-07-19] MEDS: methADONE HCl 20 MG/2 ML ORAL.CONC 155 MG PO (09:21)
--- NOTE | 2024-07-19 09:25 | PC.NURSE ---
IN CASE IT SHOWS UP METHADONE ADMINISTERED TWICE: Pt given his methadone this morning 155mg - double verified with BUFFY Bateman. After BUFFY Ellsworth entered her PIN code methadone did not show up in patien'ts given meds so this nurse had to click on it again and press unable to scan med barcode and then reverified with BUFFY Ellsworth.
[2024-07-19] MEDS: Omeprazole 20 MG CAPSULE.DR PO (09:44)
[2024-07-19 10:49] VITALS: BP 140/94
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
[2024-07-19 20:00] VITALS: BP 114/77; PULSE 66; RESP 18; TEMP 36.9; O2SAT 100
[2024-07-19] MEDS: Mirtazapine 15 MG TABLET PO (20:19)
[2024-07-20] MEDS: Omeprazole 20 MG CAPSULE.DR PO (05:14)
[2024-07-20] MEDS: chlorproMAZINE HCl 25 MG TABLET PO ×2 (05:14→21:15)
[2024-07-20] MEDS: Nicotine Polacrilex 2 MG GUM 4 MG BUCCAL ×5 (05:22→21:20)
[2024-07-20] MEDS: methADONE HCl 20 MG/2 ML ORAL.CONC 155 MG PO (07:38)
[2024-07-20 08:00] VITALS: BP 117/74; PULSE 67; RESP 16; TEMP 37.2; O2SAT 99
[2024-07-20] MEDS: clonazePAM 1 MG TABLET PO ×2 (08:15→15:22)
[2024-07-20] MEDS: Venlafaxine HCl ER 37.5 MG CAP.ER.24H 112.5 MG PO (08:15)
[2024-07-20] MEDS: Lithium Carbonate ER 450 MG TABLET.ER PO (08:16)
[2024-07-20 11:24] LABS: Estimated Average Glucose 94 mg/dL; Hemoglobin A1C 106.6432 umol/L; Hemoglobin A1c % 4.9 % (<6.0)
[2024-07-20 11:36] LABS: Alanine Aminotransferase 30 U/L (0-40); Albumin Level 4.9 g/dL (3.5-5.0); Alkaline Phosphatase 76 U/L (39-117); Anion Gap 13 (12-20); Aspartate Amino Transferase 28 U/L (5-37); Bilirubin Total 0.3 mg/dL (0.0-1.0); Blood Urea Nitrogen 4 mg/dL (9-16); Carbon Dioxide 24 mmol/L (22-29); Chloride 110 mmol/L (96-108); Cholesterol 193 mg/dL (<200); Creatinine Clr Calc Pharmacy 168.1; Estimated Glomerular Filt Rate > 60; Glucose Random 118 mg/dL (60-115); HDL Cholesterol 38 mg/dL (>40); LDL Cholesterol Calculated 115 mg/dL (<100); Magnesium 2.3 mg/dL (1.6-2.6); Potassium 3.5 mmol/L (3.3-5.1); Sodium 143 mmol/L (135-145); Total Protein 8.3 g/dL (6.5-8.0); Triglycerides 202 mg/dL (<150)
[2024-07-20 11:53] LABS: Free T4 (Free Thyroxine) 0.83 ng/dL (0.71-1.85); Thyroid Stimulating Hormone 1.32 uIU/mL (0.32-4.0)
[2024-07-20 12:05] LABS: Folate 11.3 ng/mL (> or = 4.0); Vitamin B12 655 pg/mL (200-900)
--- NOTE | 2024-07-20 15:51 | PC.NURSE ---
07/20/24 All assessments were done by this nurse, not by Misha Last RN, systems error had occurred. IT aware.
--- NOTE | 2024-07-20 17:17 | P.PNPSI_ITS ---
Subjective Subjective Date of Service: 07/20/24 Reason For Visit: Crisis Interim History: Met with patient; discussed with team Discussed recent events leading up to this admission and patient became more forthcoming, acknowledged more substance abuse than he had previously said; discussed the stigma of this issue and his struggles with it. Understands that he can not return home. Discussed that needles were found in his house and patient says that they were not from prolific use but left over from safe needle exchange. Discussed further patient's continued struggles with anxiety and panic and how debilitating it has been, developing agoraphobia and taken over his life. Reviewed medications, labs Patient agrees to increase lithium and make it at bedtime; also agrees to increasing mirtazapine as it is not help that much with sleep and would like to see if it further reduces anxiety/depression. Also discussed his struggles with sleep and patient agrees to trial of doxepin. Discussed treatment for substance abuse and Patient considering substance abuse program. Mental Status Exam Mental Status Exam Narrative: Pt is alert and oriented; behavior is cooperative, quiet, calm; patient is not in distress; dressed in casual attire, unkempt; mood is described as depressed, anxious and affect remains congruent, downcast; eye contact appropriate; Speech is quiet, slowed; normal prosody; psychomotor retardation present; thought process is organized and goal directed; Thought content is on struggles with symptoms, tx; otherwise pertinent to relevant topics and without any delusional content, paranoid ideations or grandiosity; intermittent passive wish but no active SI; no HI; denies AVH and there is no evidence of perceptual disturbance. Patients insight and judgment impaired Diagnostics Vital Signs (24Hr): Vital Signs - 24 hr 07/19/24 20:00 07/20/24 08:00 Temperature 98.5 F 99 F Pulse Rate 66 67 Respiratory Rate 18 16 Blood Pressure 114/77 117/74 Pulse Oximetry 100 99 Oxygen Delivery Method Room Air BMI result Body Mass Index 34.6 Labs 07/18/24 10:39 07/20/24 11:08 Labs: Laboratory Results - last 48 hr 07/20/24 11:08 Sodium 143 Potassium 3.5 Chloride 110 H Carbon Dioxide 24 Anion Gap 13 BUN 4 L Creatinine 0.90 Estim Creat Clear Calc 168.1 Estimated GFR > 60 Random Glucose 118 H Estimat Average Glucose 94 Hemoglobin A1c % 4.9 Calcium 10.0 Magnesium 2.3 Total Bilirubin 0.3 AST 28 ALT 30 Alkaline Phosphatase 76 Total Protein 8.3 H Albumin 4.9 Triglycerides 202 H Cholesterol 193 LDL Cholesterol, Calc 115 H HDL Cholesterol 38 L Vitamin B12 655 Folate 11.3 TSH 1.32 Free T4 0.83 [place] 0.50 L Medications Medications Current Medications Acetaminophen (Acetaminophen 325 Mg Tablet) 650 mg PO Q6H PRN PRN Reason: Headache/Pain, Scale 1-10 Al Hydroxide/Mg Hydroxide (Magnesium Hydrox/Alum Hydrox 30 Ml Oral.Susp) 30 ml PO Q6H PRN PRN Reason: Heartburn/Nausea Chlorpromazine HCl (Chlorpromazine Hcl 25 Mg Tablet) 25 mg PO BID PRN PRN Reason: nausea. severe anxiety Last Admin: 07/20/24 05:14 Dose: 25 mg Clonazepam (Clonazepam 1 Mg Tablet) 1 mg PO BID@0800,1500 [facility] Last Admin: 07/20/24 15:22 Dose: 1 mg Clonazepam (Clonazepam 0.5 Mg Tablet) 0.5 mg PO DAILY PRN PRN Reason: breakthrough anxiety Clonidine HCl (Clonidine Hcl 0.1 Mg Tablet) 0.1 mg PO BEDTIME [facility]; Protocol Doxepin HCl (Doxepin Hcl 10 Mg Capsule) 10 mg PO BEDTIME [facility] Hydroxyzine HCl (Hydroxyzine Hcl 25 Mg Tablet) 25 mg PO Q6H PRN PRN Reason: mild anxiety Last Admin: 07/19/24 20:18 Dose: 25 mg [place] Carbonate ([place] Carbonate Er 300 Mg Tablet.Er) 1,200 mg PO BEDTIME [facility] Magnesium Hydroxide (Milk Of Magnesia 30 Ml Oral.Susp) 30 ml PO DAILY PRN PRN Reason: Constipation Methadone HCl (Methadone Hcl 20 Mg/2 Ml Oral.Conc) 155 mg PO DAILY@0800 [facility] Last Admin: 07/20/24 07:38 Dose: 155 mg Mirtazapine (Mirtazapine 30 Mg Tablet) 30 mg PO BEDTIME [facility] Nicotine (Nicotine 21 Mg Patch.Td24) 21 mg TRANSDERMA DAILY PRN PRN Reason: nicotine cravings Nicotine Polacrilex (Nicotine Polacrilex 2 Mg Gum) 4 mg BUCCAL Q2H PRN PRN Reason: Nicotine Cravings Last Admin: 07/20/24 15:22 Dose: 4 mg Omeprazole (Omeprazole 20 Mg Capsule.Dr) 20 mg PO DAILY@0630 [facility] Last Admin: 07/20/24 05:14 Dose: 20 mg Trazodone HCl (Trazodone Hcl 50 Mg Tablet) 50 mg PO BEDTIME MRX1 PRN PRN Reason: Insomnia Venlafaxine HCl (Venlafaxine Hcl Er 37.5 Mg Cap.Er.24h) 112.5 mg PO DAILY [facility] Last Admin: 07/20/24 08:15 Dose: 112.5 mg Allergies Allergies Allergy/AdvReac Type Severity Reaction Status Date / Time No Known Allergies Allergy Verified 07/18/24 10:26 [No Known Allergies*] Assessment & Plan Assessment & Plan (1) MDD (major depressive disorder), recurrent severe, without psychosis: Status: Acute Code(s): F33.2 - Major depressive disorder, recurrent severe without psychotic features (2) PTSD (post-traumatic stress disorder): Status: Acute Code(s): F43.10 - Post-traumatic stress disorder, unspecified (3) Panic disorder: Status: Acute Code(s): F41.0 - Panic disorder [episodic paroxysmal anxiety] (4) Opioid use disorder, severe, on maintenance therapy: Status: Acute Code(s): F11.20 - Opioid dependence, uncomplicated (5) Cyclical vomiting: Status: Acute Code(s): R11.15 - Cyclical vomiting syndrome unrelated to migraine Plan Pt is 24-year-old male with history of depression, anxiety/panic, cyclical vomiting, opiate abuse who presents for worsening anxiety and subsequent depression, anxiety becoming intolerable. Patient reports that panic attacks have been going on for months and he gets up to 2 a day. However his anxiety is increased even further and agoraphobia has become entrenched; months ago, he would once in awhile go out of the house, but now he never leaves the house due to anxiety and fear of panic; his mother brings him food, pays the rent... Over the past couple weeks, patient has started to wonder if life is worth living, though he denies any intent or plan (no hx of SA). Patient initially said he has been sober for the past year; initially he reports he relapsed for 1 day, using heroin IV 1 time however later he said it had been going on for more than 1 day. Patient is hoping to get medication management to address debilitating anxiety. From nursing note: brought in by family due to emergence of psychotic symptoms possibly in the context of benzodiazepine abuse and intoxication. Pt reports severe anxiety, with the worst times between [id number] daily. Father reports use is out of control, stating pt has recently taken $700 to purchase benzodiazepines prior to admission. Discussed history of james and patient denies any discrete manic episodes; he endorses periods of time where he was not sleeping but he was not also manic and thinks this was mostly due to anxiety; periods of agitation however he feels this is more a family dynamic than anything else. He denies any history of AVH or delusions unless during detoxing and says that he has had bad benzo withdrawals in the pas Formulation/clinical reasoning: Severe anxiety, panic, hyperemesis. Opioid use disorder. Not clear to the extent this point to what degree patient relapsed In the chart several diagnoses are listed including bipolar disorder and schizophrenia; patient does not present with any psychotic illness and it is quite possible that in the past, presentation with manic/psychotic symptoms were in the context of substance abuse. For now will leave these diagnoses as rule outs. Hospital course: 07/20 Discussed recent events leading up to this admission and patient became more forthcoming, acknowledged more substance abuse than he had previously said; discussed the stigma of this issue and his struggles with it. Understands that he can not return home. Discussed that needles were found in his house and patient says that they were not from prolific use but left over from safe needle exchange. Discussed further patient's continued struggles with anxiety and panic and how debilitating it has been, developing agoraphobia and taken over his life. Reviewed medications, labs Patient agrees to increase lithium and make it at bedtime; also agrees to increasing mirtazapine as it is not help that much with sleep and would like to see if it further reduces anxiety/depression. Also discussed his struggles with sleep and patient agrees to trial of doxepin. Discussed treatment for substance abuse and Patient considering substance abuse program. Reviewed risks/side effects of medication regimen -lithium level subtherapeutic; will increase dose and make it at bedtime -adding doxepin q.h.s. for insomnia; adding clonidine b.i.d. for anxiety; agreed to add clonazepam 0.5 mg daily as a p.r.n. PLAN: CV Q 15 INCREASE lithium ER 1200 mg q.h.s. (subtherapeutic at 900 mg; changed to bedtime to help with insomnia) START clonidine 0.1 mg b.i.d. for anxiety START doxepin 10 mg q.h.s. for insomnia; also for anxiety/depression ADD clonazepam 0.5 mg daily p.r.n. for breakthrough anxiety; patient wants to go back to t.i.d. however law writer thinks best to avoid this; not sure if increase will be continued on discharge effexor XR 112mg (was on 75mg; says higher dose made him feel shaky). clonazepam 1mg BID p.r.n. (says he does not abuse or buy extra benzo's; father says otherwise); used to be on t.i.d. however has been on lower dose 1mg BID for past 9 months Thorazine For hyperemesis mirtazapine: Mostly for sleep permethazine: Hyperemesis methadone Patient educated on: diagnosis, medication risk/benefits, substance abuse and therapeutic strategies Informed Consent: understands Reason for continued inpatient stay Substantial Risk for: rapid decompensation Time Spent With Patient Time: Total time managing care of this patient today ____ minutes.
[2024-07-20 20:00] VITALS: BP 132/81; PULSE 80; TEMP 36.9; O2SAT 98
[2024-07-20] MEDS: Lithium Carbonate ER 300 MG TABLET.ER 1200 MG PO (21:12)
[2024-07-20] MEDS: Promethazine HCL 25 MG TABLET 12.5 MG PO (21:13)
[2024-07-20] MEDS: Mirtazapine 30 MG TABLET PO (21:14)
[2024-07-20] MEDS: Doxepin HCl 10 MG CAPSULE PO (21:14)
[2024-07-20 21:15] VITALS: BP 132/81
[2024-07-20] MEDS: cloNIDine HCL 0.1 MG TABLET PO (21:15)
[2024-07-20] MEDS: clonazePAM 0.5 MG TABLET PO (21:20)
[2024-07-21] MEDS: Omeprazole 20 MG CAPSULE.DR PO (06:49)
[2024-07-21] MEDS: chlorproMAZINE HCl 25 MG TABLET PO ×2 (06:50→20:21)
[2024-07-21] MEDS: Nicotine Polacrilex 2 MG GUM 4 MG BUCCAL ×5 (06:51→20:18)
[2024-07-21] MEDS: clonazePAM 1 MG TABLET PO ×2 (07:59→15:35)
[2024-07-21] MEDS: methADONE HCl 20 MG/2 ML ORAL.CONC 155 MG PO (07:59)
[2024-07-21 08:00] VITALS: BP 142/69; PULSE 84; RESP 16; TEMP 36.8; O2SAT 98
[2024-07-21] MEDS: Venlafaxine HCl ER 37.5 MG CAP.ER.24H 112.5 MG PO (08:43)
[2024-07-21] MEDS: Promethazine HCL 25 MG TABLET 12.5 MG PO ×2 (08:43→20:17)
[2024-07-21] MEDS: hydrOXYzine HCL 25 MG TABLET PO (15:35)
--- NOTE | 2024-07-21 17:42 | HO.PSYCHPN ---
Subjective Subjective Date of Service: 07/21/24 Reason For Visit: Crisis Interim History: Met with patient; discussed with team Patient says today he started to feel little better. He said he slept better last night overall which he thinks maybe due to less anxiety at bedtime which is new for him. He would like doxepin increased to which sign writer hand agrees. Patient decided against going to a program for substance abuse but instead wants to attend partial day program, feeling he has been to numerous substance abuse programs and what he needs more is putting more emphasis on talking about other emotional struggles. Patient is planning to stay with a friend since he can not return to his apartment as he is being evicted. Mental Status Exam Mental Status Exam Narrative: Pt is alert and oriented; behavior is cooperative, quiet, calm; patient is not in distress; dressed in casual attire, unkempt but adequate hygiene; mood is described as still anxious but a little better and affect a little brighter, more calm; eye contact appropriate; Speech is normal rate and volume normal prosody; still with some psychomotor retardation present; thought process is organized and goal directed; Thought content is on struggles with symptoms, tx; otherwise pertinent to relevant topics and without any delusional content, paranoid ideations or grandiosity; no SI; no HI; denies AVH and there is no evidence of perceptual disturbance. Patients insight and judgment impaired but improving Diagnostics Vital Signs (24Hr): Vital Signs - 24 hr 07/20/24 20:00 07/20/24 21:15 07/21/24 08:00 Temperature 98.5 F 98.2 F Pulse Rate 80 84 Respiratory Rate 16 Blood Pressure 132/81 132/81 142/69 H Pulse Oximetry 98 98 Oxygen Delivery Method Room Air Room Air BMI result Body Mass Index 34.6 Labs 07/18/24 10:39 07/20/24 11:08 Labs: Laboratory Results - last 48 hr 07/20/24 11:08 Sodium 143 Potassium 3.5 Chloride 110 H Carbon Dioxide 24 Anion Gap 13 BUN 4 L Creatinine 0.90 Estim Creat Clear Calc 168.1 Estimated GFR > 60 Random Glucose 118 H Estimat Average Glucose 94 Hemoglobin A1c % 4.9 Calcium 10.0 Magnesium 2.3 Total Bilirubin 0.3 AST 28 ALT 30 Alkaline Phosphatase 76 Total Protein 8.3 H Albumin 4.9 Triglycerides 202 H Cholesterol 193 LDL Cholesterol, Calc 115 H HDL Cholesterol 38 L Vitamin B12 655 Folate 11.3 TSH 1.32 Free T4 0.83 [place] 0.50 L Medications Medications Current Medications Acetaminophen (Acetaminophen 325 Mg Tablet) 650 mg PO Q6H PRN PRN Reason: Headache/Pain, Scale 1-10 Al Hydroxide/Mg Hydroxide (Magnesium Hydrox/Alum Hydrox 30 Ml Oral.Susp) 30 ml PO Q6H PRN PRN Reason: Heartburn/Nausea Chlorpromazine HCl (Chlorpromazine Hcl 25 Mg Tablet) 25 mg PO BID PRN PRN Reason: nausea. severe anxiety Last Admin: 07/21/24 06:50 Dose: 25 mg Clonazepam (Clonazepam 1 Mg Tablet) 1 mg PO BID@0800,1500 [facility] Last Admin: 07/21/24 15:35 Dose: 1 mg Clonazepam (Clonazepam 0.5 Mg Tablet) 0.5 mg PO DAILY PRN PRN Reason: breakthrough anxiety Last Admin: 07/20/24 21:20 Dose: 0.5 mg Clonidine HCl (Clonidine Hcl 0.1 Mg Tablet) 0.1 mg PO BEDTIME COLIN; Protocol Last Admin: 07/20/24 21:15 Dose: 0.1 mg Doxepin HCl (Doxepin Hcl 10 Mg Capsule) 20 mg PO BEDTIME COLIN Hydroxyzine HCl (Hydroxyzine Hcl 25 Mg Tablet) 25 mg PO Q6H PRN PRN Reason: mild anxiety Last Admin: 07/21/24 15:35 Dose: 25 mg [place] Carbonate ([place] Carbonate Er 300 Mg Tablet.Er) 1,200 mg PO BEDTIME COLIN Last Admin: 07/20/24 21:12 Dose: 1,200 mg Magnesium Hydroxide (Milk Of Magnesia 30 Ml Oral.Susp) 30 ml PO DAILY PRN PRN Reason: Constipation Methadone HCl (Methadone Hcl 20 Mg/2 Ml Oral.Conc) 155 mg PO DAILY@0800 [facility] Last Admin: 07/21/24 07:59 Dose: 155 mg Mirtazapine (Mirtazapine 30 Mg Tablet) 30 mg PO BEDTIME COLIN Last Admin: 07/20/24 21:14 Dose: 30 mg Nicotine (Nicotine 21 Mg Patch.Td24) 21 mg TRANSDERMA DAILY PRN PRN Reason: nicotine cravings Nicotine Polacrilex (Nicotine Polacrilex 2 Mg Gum) 4 mg BUCCAL Q2H PRN PRN Reason: Nicotine Cravings Last Admin: 07/21/24 15:36 Dose: 4 mg Omeprazole (Omeprazole 20 Mg Capsule.Dr) 20 mg PO DAILY@0630 [facility] Last Admin: 07/21/24 06:49 Dose: 20 mg Promethazine HCl (Promethazine Hcl 25 Mg Tablet) 12.5 mg PO BID [facility] Last Admin: 07/21/24 08:43 Dose: 12.5 mg Trazodone HCl (Trazodone Hcl 50 Mg Tablet) 50 mg PO BEDTIME MRX1 PRN PRN Reason: Insomnia Venlafaxine HCl (Venlafaxine Hcl Er 37.5 Mg Cap.Er.24h) 112.5 mg PO DAILY [facility] Last Admin: 07/21/24 08:43 Dose: 112.5 mg Allergies Allergies Allergy/AdvReac Type Severity Reaction Status Date / Time No Known Allergies Allergy Verified 07/18/24 10:26 [No Known Allergies*] Assessment & Plan Assessment & Plan (1) MDD (major depressive disorder), recurrent severe, without psychosis: Status: Acute Code(s): F33.2 - Major depressive disorder, recurrent severe without psychotic features (2) PTSD (post-traumatic stress disorder): Status: Acute Code(s): F43.10 - Post-traumatic stress disorder, unspecified (3) Panic disorder: Status: Acute Code(s): F41.0 - Panic disorder [episodic paroxysmal anxiety] (4) Opioid use disorder, severe, on maintenance therapy: Status: Acute Code(s): F11.20 - Opioid dependence, uncomplicated (5) Cyclical vomiting: Status: Acute Code(s): R11.15 - Cyclical vomiting syndrome unrelated to migraine Plan Pt is 24-year-old male with history of depression, anxiety/panic, cyclical vomiting, opiate abuse who presents for worsening anxiety and subsequent depression, anxiety becoming intolerable. Patient reports that panic attacks have been going on for months and he gets up to 2 a day. However his anxiety is increased even further and agoraphobia has become entrenched; months ago, he would once in awhile go out of the house, but now he never leaves the house due to anxiety and fear of panic; his mother brings him food, pays the rent... Over the past couple weeks, patient has started to wonder if life is worth living, though he denies any intent or plan (no hx of SA). Patient initially said he has been sober for the past year; initially he reports he relapsed for 1 day, using heroin IV 1 time however later he said it had been going on for more than 1 day. Patient is hoping to get medication management to address debilitating anxiety. From nursing note: brought in by family due to emergence of psychotic symptoms possibly in the context of benzodiazepine abuse and intoxication. Pt reports severe anxiety, with the worst times between [id number] daily. Father reports use is out of control, stating pt has recently taken $700 to purchase benzodiazepines prior to admission. Discussed history of james and patient denies any discrete manic episodes; he endorses periods of time where he was not sleeping but he was not also manic and thinks this was mostly due to anxiety; periods of agitation however he feels this is more a family dynamic than anything else. He denies any history of AVH or delusions unless during detoxing and says that he has had bad benzo withdrawals in the pas Formulation/clinical reasoning: Severe anxiety, panic, hyperemesis. Opioid use disorder. Not clear to the extent this point to what degree patient relapsed In the chart several diagnoses are listed including bipolar disorder and schizophrenia; patient does not present with any psychotic illness and it is quite possible that in the past, presentation with manic/psychotic symptoms were in the context of substance abuse. For now will leave these diagnoses as rule outs. Hospital course: 07/20 Discussed recent events leading up to this admission and patient became more forthcoming, acknowledged more substance abuse than he had previously said; discussed the stigma of this issue and his struggles with it. Understands that he can not return home. Discussed that needles were found in his house and patient says that they were not from prolific use but left over from safe needle exchange. Discussed further patient's continued struggles with anxiety and panic and how debilitating it has been, developing agoraphobia and taken over his life. Reviewed medications, labs Patient agrees to increase lithium and make it at bedtime; also agrees to increasing mirtazapine as it is not help that much with sleep and would like to see if it further reduces anxiety/depression. Also discussed his struggles with sleep and patient agrees to trial of doxepin. Discussed treatment for substance abuse and Patient considering substance abuse program. Reviewed risks/side effects of medication regimen -lithium level subtherapeutic; will increase dose and make it at bedtime -adding doxepin q.h.s. for insomnia; adding clonidine b.i.d. for anxiety; agreed to add clonazepam 0.5 mg daily as a p.r.n. 07/21 Patient says today he started to feel little better. He said he slept better last night overall which he thinks maybe due to less anxiety at bedtime which is new for him. He would like doxepin increased to which sign writer hand agrees. Patient decided against going to a program for substance abuse but instead wants to attend partial day program, feeling he has been to numerous substance abuse programs and what he needs more is putting more emphasis on talking about other emotional struggles. Patient is planning to stay with a friend since he can not return to his apartment as he is being evicted. -patient remains on Methadone for MAT PLAN: CV Q 15 Continue lithium ER 1200 mg q.h.s. (subtherapeutic at 900 mg; changed to bedtime to help with insomnia) Continue clonidine 0.1 mg b.i.d. for anxiety Increase doxepin 20 mg q.h.s. for insomnia; also for anxiety/depression Continue clonazepam 0.5 mg daily p.r.n. for breakthrough anxiety; patient wants to go back to t.i.d. however sign writer hand thinks best to avoid this; not sure if increase will be continued on discharge effexor XR 112mg (was on 75mg; says higher dose made him feel shaky). clonazepam 1mg BID p.r.n. (says he does not abuse or buy extra benzo's; father says otherwise); used to be on t.i.d. however has been on lower dose 1mg BID for past 9 months Thorazine For hyperemesis mirtazapine: Mostly for sleep permethazine: Hyperemesis methadonene: Hyperemesis methadone Patient educated on: diagnosis, medication risk/benefits, substance abuse and therapeutic strategies Informed Consent: understands Reason for continued inpatient stay Substantial Risk for: rapid decompensation Time Spent With Patient Time: Total time managing care of this patient today ____ minutes.
[2024-07-21 20:00] VITALS: BP 125/61; PULSE 65; TEMP 36.9; O2SAT 98
[2024-07-21] MEDS: Lithium Carbonate ER 300 MG TABLET.ER 1200 MG PO (20:18)
[2024-07-21] MEDS: clonazePAM 0.5 MG TABLET PO (20:19)
[2024-07-21] MEDS: Mirtazapine 30 MG TABLET PO (20:19)
[2024-07-21] MEDS: Doxepin HCl 10 MG CAPSULE 20 MG PO (20:20)
[2024-07-21 20:21] VITALS: BP 125/67
[2024-07-21] MEDS: cloNIDine HCL 0.1 MG TABLET PO (20:21)
--- NOTE | 2024-07-22 | ECG_ITS ---
Test Reason : QTC Blood Pressure : */* mmHG Vent. Rate : 68 BPM Atrial Rate : 68 BPM P-R Int : 148 ms QRS Dur : 82 ms QT Int : 414 ms P-R-T Axes : 51 74 54 degrees QTcB Int : 440 ms Normal sinus rhythm with sinus arrhythmia Normal ECG When compared with ECG of 29-Jun-2023 13:07, No significant change was found Referred By: Carlo Tesfaye Electronically Signed By: NIDIA DONOHUE
[2024-07-22] MEDS: Omeprazole 20 MG CAPSULE.DR PO (07:05)
[2024-07-22] MEDS: methADONE HCl 20 MG/2 ML ORAL.CONC 155 MG PO (07:58)
[2024-07-22 08:00] VITALS: BP 135/82; PULSE 65; RESP 16; TEMP 36.6; O2SAT 100
[2024-07-22] MEDS: Venlafaxine HCl ER 37.5 MG CAP.ER.24H 112.5 MG PO (08:24)
[2024-07-22] MEDS: Promethazine HCL 25 MG TABLET 12.5 MG PO ×2 (08:24→22:02)
[2024-07-22] MEDS: Nicotine Polacrilex 2 MG GUM 4 MG BUCCAL ×4 (08:25→22:04)
[2024-07-22] MEDS: chlorproMAZINE HCl 25 MG TABLET PO ×2 (08:25→22:04)
[2024-07-22] MEDS: clonazePAM 1 MG TABLET PO ×2 (08:25→15:20)
[2024-07-22] MEDS: OLANZapine 5 MG TABLET PO ×2 (15:20→16:33)
[2024-07-22 20:00] VITALS: BP 138/86; PULSE 70; RESP 16; TEMP 36.4; O2SAT 99
[2024-07-22 22:02] VITALS: BP 138/86
[2024-07-22] MEDS: cloNIDine HCL 0.1 MG TABLET PO (22:02)
[2024-07-22] MEDS: clonazePAM 0.5 MG TABLET PO (22:02)
[2024-07-22 22:03] VITALS: BP 138/86
[2024-07-22] MEDS: Lithium Carbonate ER 300 MG TABLET.ER 1200 MG PO (22:03)
[2024-07-22] MEDS: Mirtazapine 30 MG TABLET PO (22:03)
[2024-07-22] MEDS: Prazosin HCL 1 MG CAPSULE PO (22:03)
[2024-07-22] MEDS: Doxepin HCl 10 MG CAPSULE 30 MG PO (22:04)
--- NOTE | 2024-07-22 23:32 | P.PNPSI_ITS ---
Subjective Subjective Date of Service: 07/22/24 Reason For Visit: Crisis Interim History: Met with patient; discussed with team Patient again slept better for which he is grateful. Still very anxious however. Said he woke up okay but at some point in the day got extremely anxious and it has not left him. Also wonders if part of it is due to nightmares at night which he continually has, feeling it colors the next day. Energy Efficient Site Manager and patient engaged in CBT exercise which resonate with patient; he agreed to try and put into practice. Agrees to increasing doxepin and asks if he can be started on prazosin which had helped him in the past with nightmares. Mental Status Exam Mental Status Exam Narrative: Pt is alert and oriented; behavior is cooperative, quiet, calm; patient is not in distress; dressed in casual attire, unkempt but adequate hygiene; mood is described as anxious and affect congruent, back to anxious; eye contact appropriate; Speech is normal rate and volume normal prosody; still with some psychomotor retardation present; thought process is organized and goal directed; Thought content is on struggles with symptoms, tx; otherwise pertinent to relevant topics and without any delusional content, paranoid ideations or grandiosity; no SI; no HI; denies AVH and there is no evidence of perceptual disturbance. Patients insight and judgment impaired but improving Diagnostics Vital Signs (24Hr): Vital Signs - 24 hr 07/22/24 08:00 07/22/24 20:00 07/22/24 22:02 Temperature 97.8 F 97.6 F Pulse Rate 65 70 Respiratory Rate 16 16 Blood Pressure 135/82 138/86 138/86 Pulse Oximetry 100 99 Oxygen Delivery Method Room Air Room Air 07/22/24 22:03 Temperature Pulse Rate Respiratory Rate Blood Pressure 138/86 Pulse Oximetry Oxygen Delivery Method BMI result Body Mass Index 34.6 Labs 07/18/24 10:39 07/20/24 11:08 Medications Medications Current Medications Acetaminophen (Acetaminophen 325 Mg Tablet) 650 mg PO Q6H PRN PRN Reason: Headache/Pain, Scale 1-10 Al Hydroxide/Mg Hydroxide (Magnesium Hydrox/Alum Hydrox 30 Ml Oral.Susp) 30 ml PO Q6H PRN PRN Reason: Heartburn/Nausea Chlorpromazine HCl (Chlorpromazine Hcl 25 Mg Tablet) 25 mg PO BID PRN PRN Reason: nausea (or mod anxiety) Last Admin: 07/22/24 22:04 Dose: 25 mg Clonazepam (Clonazepam 1 Mg Tablet) 1 mg PO BID@0800,1500 COLIN Last Admin: 07/22/24 15:20 Dose: 1 mg Clonazepam (Clonazepam 0.5 Mg Tablet) 0.5 mg PO DAILY PRN PRN Reason: breakthrough anxiety Last Admin: 07/22/24 22:02 Dose: 0.5 mg Clonidine HCl (Clonidine Hcl 0.1 Mg Tablet) 0.1 mg PO BEDTIME COLIN; Protocol Last Admin: 07/22/24 22:02 Dose: 0.1 mg Doxepin HCl (Doxepin Hcl 10 Mg Capsule) 30 mg PO BEDTIME COLIN Last Admin: 07/22/24 22:04 Dose: 30 mg Hydroxyzine HCl (Hydroxyzine Hcl 25 Mg Tablet) 25 mg PO Q6H PRN PRN Reason: mild anxiety Last Admin: 07/21/24 15:35 Dose: 25 mg [place] Carbonate ([place] Carbonate Er 300 Mg Tablet.Er) 1,200 mg PO BEDTIME COLIN Last Admin: 07/22/24 22:03 Dose: 1,200 mg Magnesium Hydroxide (Milk Of Magnesia 30 Ml Oral.Susp) 30 ml PO DAILY PRN PRN Reason: Constipation Methadone HCl (Methadone Hcl 20 Mg/2 Ml Oral.Conc) 155 mg PO DAILY@0800 [facility] Last Admin: 07/22/24 07:58 Dose: 155 mg Mirtazapine (Mirtazapine 30 Mg Tablet) 30 mg PO BEDTIME COLIN Last Admin: 07/22/24 22:03 Dose: 30 mg Nicotine (Nicotine 21 Mg Patch.Td24) 21 mg TRANSDERMA DAILY PRN PRN Reason: nicotine cravings Nicotine Polacrilex (Nicotine Polacrilex 2 Mg Gum) 4 mg BUCCAL Q2H PRN PRN Reason: Nicotine Cravings Last Admin: 07/22/24 22:04 Dose: 4 mg Olanzapine (Olanzapine 5 Mg Tablet) 5 mg PO TID PRN PRN Reason: mod to severe physical anxiety Last Admin: 07/22/24 16:33 Dose: 5 mg Omeprazole (Omeprazole 20 Mg Capsule.Dr) 20 mg PO DAILY@0630 COLIN Last Admin: 07/22/24 07:05 Dose: 20 mg Prazosin HCl (Prazosin Hcl 1 Mg Capsule) 1 mg PO BEDTIME COLIN; Protocol Last Admin: 07/22/24 22:03 Dose: 1 mg Promethazine HCl (Promethazine Hcl 25 Mg Tablet) 12.5 mg PO BID COUNTS INCLUDE 234 BEDS AT THE [facility] Last Admin: 07/22/24 22:02 Dose: 12.5 mg Trazodone HCl (Trazodone Hcl 50 Mg Tablet) 50 mg PO BEDTIME MRX1 PRN PRN Reason: Insomnia Venlafaxine HCl (Venlafaxine Hcl Er 37.5 Mg Cap.Er.24h) 112.5 mg PO DAILY COUNTS INCLUDE 234 BEDS AT THE [facility] Last Admin: 07/22/24 08:24 Dose: 112.5 mg Allergies Allergies Allergy/AdvReac Type Severity Reaction Status Date / Time No Known Allergies Allergy Verified 07/18/24 10:26 [No Known Allergies*] Assessment & Plan Assessment & Plan (1) MDD (major depressive disorder), recurrent severe, without psychosis: Status: Acute Code(s): F33.2 - Major depressive disorder, recurrent severe without psychotic features (2) PTSD (post-traumatic stress disorder): Status: Acute Code(s): F43.10 - Post-traumatic stress disorder, unspecified (3) Panic disorder: Status: Acute Code(s): F41.0 - Panic disorder [episodic paroxysmal anxiety] (4) Opioid use disorder, severe, on maintenance therapy: Status: Acute Code(s): F11.20 - Opioid dependence, uncomplicated (5) Cyclical vomiting: Status: Acute Code(s): R11.15 - Cyclical vomiting syndrome unrelated to migraine Plan Pt is 24-year-old male with history of depression, anxiety/panic, cyclical vomiting, opiate abuse who presents for worsening anxiety and subsequent depression, anxiety becoming intolerable. Patient reports that panic attacks have been going on for months and he gets up to 2 a day. However his anxiety is increased even further and agoraphobia has become entrenched; months ago, he would once in awhile go out of the house, but now he never leaves the house due to anxiety and fear of panic; his mother brings him food, pays the rent... Over the past couple weeks, patient has started to wonder if life is worth living, though he denies any intent or plan (no hx of SA). Patient initially said he has been sober for the past year; initially he reports he relapsed for 1 day, using heroin IV 1 time however later he said it had been going on for more than 1 day. Patient is hoping to get medication management to address debilitating anxiety. From nursing note: brought in by family due to emergence of psychotic symptoms possibly in the context of benzodiazepine abuse and intoxication. Pt reports severe anxiety, with the worst times between 2822-2141 daily. Father reports use is out of control, stating pt has recently taken $700 to purchase benzodiazepines prior to admission. Discussed history of james and patient denies any discrete manic episodes; he endorses periods of time where he was not sleeping but he was not also manic and thinks this was mostly due to anxiety; periods of agitation however he feels this is more a family dynamic than anything else. He denies any history of AVH or delusions unless during detoxing and says that he has had bad benzo withdrawals in the pas Formulation/clinical reasoning: Severe anxiety, panic, hyperemesis. Opioid use disorder. Not clear to the extent this point to what degree patient relapsed In the chart several diagnoses are listed including bipolar disorder and schizophrenia; patient does not present with any psychotic illness and it is quite possible that in the past, presentation with manic/psychotic symptoms were in the context of substance abuse. For now will leave these diagnoses as rule outs. Hospital course: 07/20 Reviewed risks/side effects of medication regimen -lithium level subtherapeutic; will increase dose and make it at bedtime -adding doxepin q.h.s. for insomnia; adding clonidine b.i.d. for anxiety; agreed to add clonazepam 0.5 mg daily as a p.r.n. 07/21 Patient says today he started to feel little better. He said he slept better last night overall which he thinks maybe due to less anxiety at bedtime which is new for him. He would like doxepin increased to which data analyst report writer agrees. Patient decided against going to a program for substance abuse but instead wants to attend partial day program, feeling he has been to numerous substance abuse programs and what he needs more is putting more emphasis on talking about other emotional struggles. Patient is planning to stay with a friend since he can not return to his apartment as he is being evicted. -patient remains on Methadone for MAT 07/22 Patient again slept better for which he is grateful. Still very anxious however. Said he woke up okay but at some point in the day got extremely anxious and it has not left him. Also wonders if part of it is due to nightmares at night which he continually has, feeling it colors the next day. Energy Efficient Site Manager and patient engaged in CBT exercise which resonate with patient; he agreed to try and put into practice. Agrees to increasing doxepin and asks if he can be started on prazosin which had helped him in the past with nightmares. -data analyst report writer looked at patient's finger/abdominal lesion, both healing PLAN: CV Q 15 Add prazosin 1 mg q.h.s. for nightmare Continue lithium ER 1200 mg q.h.s. (subtherapeutic at 900 mg; changed to bedtime to help with insomnia) Continue clonidine 0.1 mg b.i.d. for anxiety Increase doxepin 30 mg q.h.s. for insomnia; also for anxiety/depression Continue clonazepam 0.5 mg daily p.r.n. for breakthrough anxiety; patient wants to go back to t.i.d. however data analyst report writer thinks best to avoid this; not sure if increase will be continued on discharge effexor XR 112mg (was on 75mg; says higher dose made him feel shaky). clonazepam 1mg BID p.r.n. (says he does not abuse or buy extra benzo's; father says otherwise); used to be on t.i.d. however has been on lower dose 1mg BID for past 9 months Thorazine For hyperemesis mirtazapine: Mostly for sleep permethazine: Hyperemesis methadonene: Hyperemesis methadone Patient educated on: diagnosis, medication risk/benefits, substance abuse and therapeutic strategies Informed Consent: understands Reason for continued inpatient stay Substantial Risk for: rapid decompensation Time Spent With Patient Time: Total time managing care of this patient today ____ minutes.
[2024-07-23] MEDS: Omeprazole 20 MG CAPSULE.DR PO (07:04)
[2024-07-23] MEDS: chlorproMAZINE HCl 25 MG TABLET PO ×2 (07:05→20:08)
[2024-07-23] MEDS: clonazePAM 1 MG TABLET PO ×2 (07:05→16:19)
[2024-07-23] MEDS: Nicotine Polacrilex 2 MG GUM 4 MG BUCCAL ×5 (07:11→20:08)
[2024-07-23] MEDS: methADONE HCl 20 MG/2 ML ORAL.CONC 155 MG PO (07:55)
[2024-07-23 08:00] VITALS: BP 129/79; PULSE 79; RESP 18; TEMP 36.4
[2024-07-23] MEDS: Venlafaxine HCl ER 37.5 MG CAP.ER.24H 112.5 MG PO (08:48)
[2024-07-23] MEDS: Promethazine HCL 25 MG TABLET 12.5 MG PO ×2 (08:48→20:06)
[2024-07-23] MEDS: Nicotine 21 MG PATCH.TD24 TRANSDERMA (08:51)
[2024-07-23] MEDS: OLANZapine 5 MG TABLET PO ×3 (08:51→20:08)
--- NOTE | 2024-07-23 08:55 | HO.PSYCHPN ---
Subjective Subjective Date of Service: 07/23/24 Reason For Visit: Crisis Interim History: Patient; discussed with team Patient said that he is doing all right and feels that his anxiety is getting a little better or at least not as bad. Mental Status Exam Mental Status Exam Narrative: Pt is alert and oriented; behavior is cooperative, quiet, calm; patient is not in distress; dressed in casual attire, unkempt but adequate hygiene; mood is described as little better and affect congruent, more calm; eye contact appropriate; Speech is normal rate and volume normal prosody; still with some psychomotor retardation present; thought process is organized and goal directed; Thought content is on tx; otherwise pertinent to relevant topics and without any delusional content, paranoid ideations or grandiosity; no SI; no HI; denies AVH and there is no evidence of perceptual disturbance. Patients insight and judgment fair. Diagnostics Vital Signs (24Hr): Vital Signs - 24 hr 07/22/24 20:00 07/22/24 22:02 07/22/24 22:03 Temperature 97.6 F Pulse Rate 70 Respiratory Rate 16 Blood Pressure 138/86 138/86 138/86 Pulse Oximetry 99 Oxygen Delivery Method Room Air BMI result Body Mass Index 34.6 Labs 07/18/24 10:39 07/20/24 11:08 Medications Medications Current Medications Acetaminophen (Acetaminophen 325 Mg Tablet) 650 mg PO Q6H PRN PRN Reason: Headache/Pain, Scale 1-10 Al Hydroxide/Mg Hydroxide (Magnesium Hydrox/Alum Hydrox 30 Ml Oral.Susp) 30 ml PO Q6H PRN PRN Reason: Heartburn/Nausea Chlorpromazine HCl (Chlorpromazine Hcl 25 Mg Tablet) 25 mg PO BID PRN PRN Reason: nausea (or mod anxiety) Last Admin: 07/23/24 07:05 Dose: 25 mg Clonazepam (Clonazepam 1 Mg Tablet) 1 mg PO BID@0800,1500 [facility] Last Admin: 07/23/24 07:05 Dose: 1 mg Clonazepam (Clonazepam 0.5 Mg Tablet) 0.5 mg PO DAILY PRN PRN Reason: breakthrough anxiety Last Admin: 07/22/24 22:02 Dose: 0.5 mg Clonidine HCl (Clonidine Hcl 0.1 Mg Tablet) 0.1 mg PO BEDTIME [facility]; Protocol Last Admin: 07/22/24 22:02 Dose: 0.1 mg Doxepin HCl (Doxepin Hcl 10 Mg Capsule) 30 mg PO BEDTIME [facility] Last Admin: 07/22/24 22:04 Dose: 30 mg Hydroxyzine HCl (Hydroxyzine Hcl 25 Mg Tablet) 25 mg PO Q6H PRN PRN Reason: mild anxiety Last Admin: 07/21/24 15:35 Dose: 25 mg Tuttle Carbonate (Tuttle Carbonate Er 300 Mg Tablet.Er) 1,200 mg PO BEDTIME [facility] Last Admin: 07/22/24 22:03 Dose: 1,200 mg Magnesium Hydroxide (Milk Of Magnesia 30 Ml Oral.Susp) 30 ml PO DAILY PRN PRN Reason: Constipation Methadone HCl (Methadone Hcl 20 Mg/2 Ml Oral.Conc) 155 mg PO DAILY@0800 [facility] Last Admin: 07/23/24 07:55 Dose: 155 mg Mirtazapine (Mirtazapine 30 Mg Tablet) 30 mg PO BEDTIME [facility] Last Admin: 07/22/24 22:03 Dose: 30 mg Nicotine (Nicotine 21 Mg Patch.Td24) 21 mg TRANSDERMA DAILY PRN PRN Reason: nicotine cravings Last Admin: 07/23/24 08:51 Dose: 21 mg Nicotine Polacrilex (Nicotine Polacrilex 2 Mg Gum) 4 mg BUCCAL Q2H PRN PRN Reason: Nicotine Cravings Last Admin: 07/23/24 07:11 Dose: 4 mg Olanzapine (Olanzapine 5 Mg Tablet) 5 mg PO TID PRN PRN Reason: mod to severe physical anxiety Last Admin: 07/23/24 08:51 Dose: 5 mg Omeprazole (Omeprazole 20 Mg Capsule.Dr) 20 mg PO DAILY@0630 [facility] Last Admin: 07/23/24 07:04 Dose: 20 mg Prazosin HCl (Prazosin Hcl 1 Mg Capsule) 1 mg PO BEDTIME [facility]; Protocol Last Admin: 07/22/24 22:03 Dose: 1 mg Promethazine HCl (Promethazine Hcl 25 Mg Tablet) 12.5 mg PO BID [facility] Last Admin: 07/23/24 08:48 Dose: 12.5 mg Trazodone HCl (Trazodone Hcl 50 Mg Tablet) 50 mg PO BEDTIME MRX1 PRN PRN Reason: Insomnia Venlafaxine HCl (Venlafaxine Hcl Er 37.5 Mg Cap.Er.24h) 112.5 mg PO DAILY [facility] Last Admin: 07/23/24 08:48 Dose: 112.5 mg Allergies Allergies Allergy/AdvReac Type Severity Reaction Status Date / Time No Known Allergies Allergy Verified 07/18/24 10:26 [No Known Allergies*] Assessment & Plan Assessment & Plan (1) MDD (major depressive disorder), recurrent severe, without psychosis: Status: Acute Code(s): F33.2 - Major depressive disorder, recurrent severe without psychotic features (2) PTSD (post-traumatic stress disorder): Status: Acute Code(s): F43.10 - Post-traumatic stress disorder, unspecified (3) Panic disorder: Status: Acute Code(s): F41.0 - Panic disorder [episodic paroxysmal anxiety] (4) Opioid use disorder, severe, on maintenance therapy: Status: Acute Code(s): F11.20 - Opioid dependence, uncomplicated (5) Cyclical vomiting: Status: Acute Code(s): R11.15 - Cyclical vomiting syndrome unrelated to migraine Plan Pt is 24-year-old male with history of depression, anxiety/panic, cyclical vomiting, opiate abuse who presents for worsening anxiety and subsequent depression, anxiety becoming intolerable. Patient reports that panic attacks have been going on for months and he gets up to 2 a day. However his anxiety is increased even further and agoraphobia has become entrenched; months ago, he would once in awhile go out of the house, but now he never leaves the house due to anxiety and fear of panic; his mother brings him food, pays the rent... Over the past couple weeks, patient has started to wonder if life is worth living, though he denies any intent or plan (no hx of SA). Patient initially said he has been sober for the past year; initially he reports he relapsed for 1 day, using heroin IV 1 time however later he said it had been going on for more than 1 day. Patient is hoping to get medication management to address debilitating anxiety. From nursing note: brought in by family due to emergence of psychotic symptoms possibly in the context of benzodiazepine abuse and intoxication. Pt reports severe anxiety, with the worst times between [id number] daily. Father reports use is out of control, stating pt has recently taken $700 to purchase benzodiazepines prior to admission. Discussed history of james and patient denies any discrete manic episodes; he endorses periods of time where he was not sleeping but he was not also manic and thinks this was mostly due to anxiety; periods of agitation however he feels this is more a family dynamic than anything else. He denies any history of AVH or delusions unless during detoxing and says that he has had bad benzo withdrawals in the pas Formulation/clinical reasoning: Severe anxiety, panic, hyperemesis. Opioid use disorder. Not clear to the extent this point to what degree patient relapsed In the chart several diagnoses are listed including bipolar disorder and schizophrenia; patient does not present with any psychotic illness and it is quite possible that in the past, presentation with manic/psychotic symptoms were in the context of substance abuse. For now will leave these diagnoses as rule outs. Hospital course: 07/20 Reviewed risks/side effects of medication regimen -lithium level subtherapeutic; will increase dose and make it at bedtime -adding doxepin q.h.s. for insomnia; adding clonidine b.i.d. for anxiety; agreed to add clonazepam 0.5 mg daily as a p.r.n. 07/21 Patient says today he started to feel little better. He said he slept better last night overall which he thinks maybe due to less anxiety at bedtime which is new for him. He would like doxepin increased to which automobile and property underwriter agrees. Patient decided against going to a program for substance abuse but instead wants to attend partial day program, feeling he has been to numerous substance abuse programs and what he needs more is putting more emphasis on talking about other emotional struggles. Patient is planning to stay with a friend since he can not return to his apartment as he is being evicted. -patient remains on Methadone for MAT 07/22 Patient again slept better for which he is grateful. Still very anxious however. Said he woke up okay but at some point in the day got extremely anxious and it has not left him. Also wonders if part of it is due to nightmares at night which he continually has, feeling it colors the next day. Custodial Worker and patient engaged in CBT exercise which resonate with patient; he agreed to try and put into practice. Agrees to increasing doxepin and asks if he can be started on prazosin which had helped him in the past with nightmares. -automobile and property underwriter looked at patient's finger/abdominal lesion, both healing 07/23 Patient said that he is doing all right and feels that his anxiety is getting a little better or at least not as bad. PLAN: CV Q 15 Add prazosin 1 mg q.h.s. for nightmare Continue lithium ER 1200 mg q.h.s. (subtherapeutic at 900 mg; changed to bedtime to help with insomnia) Continue clonidine 0.1 mg b.i.d. for anxiety Increase doxepin 30 mg q.h.s. for insomnia; also for anxiety/depression Continue clonazepam 0.5 mg daily p.r.n. for breakthrough anxiety; patient wants to go back to t.i.d. however automobile and property underwriter thinks best to avoid this; not sure if increase will be continued on discharge effexor XR 112mg (was on 75mg; says higher dose made him feel shaky). clonazepam 1mg BID p.r.n. (says he does not abuse or buy extra benzo's; father says otherwise); used to be on t.i.d. however has been on lower dose 1mg BID for past 9 months Thorazine For hyperemesis mirtazapine: Mostly for sleep permethazine: Hyperemesis methadonene: Hyperemesis methadone Patient educated on: diagnosis and medication risk/benefits Informed Consent: understands Reason for continued inpatient stay Substantial Risk for: stable for discharge Time Spent With Patient Time: Total time managing care of this patient today ____ minutes.
[2024-07-23] MEDS: hydrOXYzine HCL 25 MG TABLET PO (10:49)
[2024-07-23 19:42] VITALS: BP 132/87; PULSE 78; RESP 16; TEMP 36.8; O2SAT 98
[2024-07-23] MEDS: Mirtazapine 30 MG TABLET PO (20:06)
[2024-07-23] MEDS: Doxepin HCl 10 MG CAPSULE 30 MG PO (20:06)
[2024-07-23 20:07] VITALS: BP 132/87
[2024-07-23] MEDS: cloNIDine HCL 0.1 MG TABLET PO (20:07)
[2024-07-23] MEDS: clonazePAM 0.5 MG TABLET PO (20:07)
[2024-07-23] MEDS: Prazosin HCL 1 MG CAPSULE PO (20:07)
[2024-07-23] MEDS: Lithium Carbonate ER 300 MG TABLET.ER 1200 MG PO (20:08)
[2024-07-24] MEDS: chlorproMAZINE HCl 25 MG TABLET PO (06:40)
[2024-07-24] MEDS: Omeprazole 20 MG CAPSULE.DR PO (06:40)
[2024-07-24] MEDS: clonazePAM 1 MG TABLET PO ×2 (06:40→14:47)
[2024-07-24] MEDS: Nicotine Polacrilex 2 MG GUM 4 MG BUCCAL ×5 (06:45→17:32)
[2024-07-24] MEDS: methADONE HCl 20 MG/2 ML ORAL.CONC 155 MG PO (07:37)
[2024-07-24 08:00] VITALS: BP 147/83; PULSE 69; TEMP 36.4; O2SAT 100
[2024-07-24] MEDS: Promethazine HCL 25 MG TABLET 12.5 MG PO ×2 (08:11→20:01)
[2024-07-24] MEDS: Venlafaxine HCl ER 37.5 MG CAP.ER.24H 112.5 MG PO (08:11)
[2024-07-24] MEDS: Nicotine 21 MG PATCH.TD24 TRANSDERMA (08:17)
[2024-07-24] MEDS: OLANZapine 5 MG TABLET PO ×2 (08:18→14:48)
--- NOTE | 2024-07-24 10:09 | P.PNPSI_ITS ---
Subjective Subjective Date of Service: 07/24/24 Reason For Visit: Crisis Interim History: Met with patient; discussed with team Patient reports he again is overall doing better. Says anxiety is no longer horrible and while it is still there the improvement is very welcomed. He feels that Zyprexa is significantly helping as is the extra 0.5 mg of clonazepam he can use as a p.r.n.. Also feels doxepin has been helpful and he has been able to sleep, feeling well rested but not groggy in the morning. Mental Status Exam Mental Status Exam Narrative: Pt is alert and oriented; behavior is cooperative, quiet, friendly, calm; patient is not in distress; dressed in casual attire with adequate grooming and hygiene; mood is described as good and affect congruent, brighter, more calm; eye contact appropriate; Speech is normal rate and volume normal prosody; no psychomotor retardation present; thought process is organized and goal directed; Thought content is on tx; otherwise pertinent to relevant topics and without any delusional content, paranoid ideations or grandiosity; no SI; no HI; denies AVH and there is no evidence of perceptual disturbance. Patients insight and judgment fair. Diagnostics Vital Signs (24Hr): Vital Signs - 24 hr 07/23/24 19:42 07/23/24 20:07 07/23/24 20:07 Temperature 98.2 F Pulse Rate 78 Respiratory Rate 16 Blood Pressure 132/87 132/87 132/87 Pulse Oximetry 98 Oxygen Delivery Method Room Air 07/24/24 08:00 Temperature 97.5 F Pulse Rate 69 Respiratory Rate Blood Pressure 147/83 H Pulse Oximetry 100 Oxygen Delivery Method Room Air BMI result Body Mass Index 34.6 Labs 07/18/24 10:39 07/20/24 11:08 Medications Medications Current Medications Acetaminophen (Acetaminophen 325 Mg Tablet) 650 mg PO Q6H PRN PRN Reason: Headache/Pain, Scale 1-10 Al Hydroxide/Mg Hydroxide (Magnesium Hydrox/Alum Hydrox 30 Ml Oral.Susp) 30 ml PO Q6H PRN PRN Reason: Heartburn/Nausea Chlorpromazine HCl (Chlorpromazine Hcl 25 Mg Tablet) 25 mg PO BID PRN PRN Reason: nausea (or mod anxiety) Last Admin: 07/24/24 06:40 Dose: 25 mg Clonazepam (Clonazepam 1 Mg Tablet) 1 mg PO BID@0800,1500 [facility] Last Admin: 07/24/24 06:40 Dose: 1 mg Clonazepam (Clonazepam 0.5 Mg Tablet) 0.5 mg PO DAILY PRN PRN Reason: breakthrough anxiety Last Admin: 07/23/24 20:07 Dose: 0.5 mg Clonidine HCl (Clonidine Hcl 0.1 Mg Tablet) 0.1 mg PO BEDTIME [facility]; Protocol Last Admin: 07/23/24 20:07 Dose: 0.1 mg Doxepin HCl (Doxepin Hcl 10 Mg Capsule) 30 mg PO BEDTIME [facility] Last Admin: 07/23/24 20:06 Dose: 30 mg Hydroxyzine HCl (Hydroxyzine Hcl 25 Mg Tablet) 25 mg PO Q6H PRN PRN Reason: mild anxiety Last Admin: 07/23/24 10:49 Dose: 25 mg Kemmerer Carbonate (Kemmerer Carbonate Er 300 Mg Tablet.Er) 1,200 mg PO BEDTIME [facility] Last Admin: 07/23/24 20:08 Dose: 1,200 mg Magnesium Hydroxide (Milk Of Magnesia 30 Ml Oral.Susp) 30 ml PO DAILY PRN PRN Reason: Constipation Methadone HCl (Methadone Hcl 20 Mg/2 Ml Oral.Conc) 155 mg PO DAILY@0800 [facility] Last Admin: 07/24/24 07:37 Dose: 155 mg Mirtazapine (Mirtazapine 30 Mg Tablet) 30 mg PO BEDTIME [facility] Last Admin: 07/23/24 20:06 Dose: 30 mg Nicotine (Nicotine 21 Mg Patch.Td24) 21 mg TRANSDERMA DAILY PRN PRN Reason: nicotine cravings Last Admin: 07/24/24 08:17 Dose: 21 mg Nicotine Polacrilex (Nicotine Polacrilex 2 Mg Gum) 4 mg BUCCAL Q2H PRN PRN Reason: Nicotine Cravings Last Admin: 07/24/24 08:17 Dose: 4 mg Olanzapine (Olanzapine 5 Mg Tablet) 5 mg PO TID PRN PRN Reason: mod to severe physical anxiety Last Admin: 07/24/24 08:18 Dose: 5 mg Omeprazole (Omeprazole 20 Mg Capsule.Dr) 20 mg PO DAILY@0630 [facility] Last Admin: 07/24/24 06:40 Dose: 20 mg Prazosin HCl (Prazosin Hcl 1 Mg Capsule) 1 mg PO BEDTIME [facility]; Protocol Last Admin: 02/22/25 20:07 Dose: 1 mg Promethazine HCl (Promethazine Hcl 25 Mg Tablet) 12.5 mg PO BID [facility] Last Admin: 07/24/24 08:11 Dose: 12.5 mg Trazodone HCl (Trazodone Hcl 50 Mg Tablet) 50 mg PO BEDTIME MRX1 PRN PRN Reason: Insomnia Venlafaxine HCl (Venlafaxine Hcl Er 37.5 Mg Cap.Er.24h) 112.5 mg PO DAILY [facility] Last Admin: 07/24/24 08:11 Dose: 112.5 mg Allergies Allergies Allergy/AdvReac Type Severity Reaction Status Date / Time No Known Allergies Allergy Verified 07/18/24 10:26 [No Known Allergies*] Assessment & Plan Assessment & Plan (1) MDD (major depressive disorder), recurrent severe, without psychosis: Status: Acute Code(s): F33.2 - Major depressive disorder, recurrent severe without psychotic features (2) PTSD (post-traumatic stress disorder): Status: Acute Code(s): F43.10 - Post-traumatic stress disorder, unspecified (3) Panic disorder: Status: Acute Code(s): F41.0 - Panic disorder [episodic paroxysmal anxiety] (4) Opioid use disorder, severe, on maintenance therapy: Status: Acute Code(s): F11.20 - Opioid dependence, uncomplicated (5) Cyclical vomiting: Status: Acute Code(s): R11.15 - Cyclical vomiting syndrome unrelated to migraine Plan Pt is 24-year-old male with history of depression, anxiety/panic, cyclical vomiting, opiate abuse who presents for worsening anxiety and subsequent depression, anxiety becoming intolerable. Patient reports that panic attacks have been going on for months and he gets up to 2 a day. However his anxiety is increased even further and agoraphobia has become entrenched; months ago, he would once in awhile go out of the house, but now he never leaves the house due to anxiety and fear of panic; his mother brings him food, pays the rent... Over the past couple weeks, patient has started to wonder if life is worth living, though he denies any intent or plan (no hx of SA). Patient initially said he has been sober for the past year; initially he reports he relapsed for 1 day, using heroin IV 1 time however later he said it had been going on for more than 1 day. Patient is hoping to get medication management to address debilitating anxiety. From nursing note: brought in by family due to emergence of psychotic symptoms possibly in the context of benzodiazepine abuse and intoxication. Pt reports severe anxiety, with the worst times between [id number] daily. Father reports use is out of control, stating pt has recently taken $700 to purchase benzodiazepines prior to admission. Discussed history of james and patient denies any discrete manic episodes; he endorses periods of time where he was not sleeping but he was not also manic and thinks this was mostly due to anxiety; periods of agitation however he feels this is more a family dynamic than anything else. He denies any history of AVH or delusions unless during detoxing and says that he has had bad benzo withdrawals in the pas Formulation/clinical reasoning: Severe anxiety, panic, hyperemesis. Opioid use disorder. Not clear to the extent this point to what degree patient relapsed In the chart several diagnoses are listed including bipolar disorder and schizophrenia; patient does not present with any psychotic illness and it is quite possible that in the past, presentation with manic/psychotic symptoms were in the context of substance abuse. For now will leave these diagnoses as rule outs. Hospital course: 07/20 Reviewed risks/side effects of medication regimen -lithium level subtherapeutic; will increase dose and make it at bedtime -adding doxepin q.h.s. for insomnia; adding clonidine b.i.d. for anxiety; agreed to add clonazepam 0.5 mg daily as a p.r.n. 07/21 Patient says today he started to feel little better. He said he slept better last night overall which he thinks maybe due to less anxiety at bedtime which is new for him. He would like doxepin increased to which publications writer agrees. Patient decided against going to a program for substance abuse but instead wants to attend partial day program, feeling he has been to numerous substance abuse programs and what he needs more is putting more emphasis on talking about other emotional struggles. Patient is planning to stay with a friend since he can not return to his apartment as he is being evicted. -patient remains on Methadone for MAT 07/22 Patient again slept better for which he is grateful. Still very anxious however. Said he woke up okay but at some point in the day got extremely anxious and it has not left him. Also wonders if part of it is due to nightmares at night which he continually has, feeling it colors the next day. Mortgage Closing Clerk and patient engaged in CBT exercise which resonate with patient; he agreed to try and put into practice. Agrees to increasing doxepin and asks if he can be started on prazosin which had helped him in the past with nightmares. -publications writer looked at patient's finger/abdominal lesion, both healing 07/23 Patient said that he is doing all right and feels that his anxiety is getting a little better or at least not as bad. 07/24 Patient reports he again is overall doing better. Says anxiety is no longer horrible and while it is still there the improvement is very welcomed. He feels that Zyprexa is significantly helping as is the extra 0.5 mg of clonazepam he can use as a p.r.n.. Also feels doxepin has been helpful and he has been able to sleep, feeling well rested but not groggy in the morning. PLAN: CV Q 15 Add prazosin 1 mg q.h.s. for nightmare Continue lithium ER 1200 mg q.h.s. (subtherapeutic at 900 mg; changed to bedtime to help with insomnia) Continue clonidine 0.1 mg b.i.d. for anxiety Increase doxepin 30 mg q.h.s. for insomnia; also for anxiety/depression Continue clonazepam 0.5 mg daily p.r.n. for breakthrough anxiety; patient wants to go back to t.i.d. however publications writer thinks best to avoid this; not sure if increase will be continued on discharge effexor XR 112mg (was on 75mg; says higher dose made him feel shaky). clonazepam 1mg BID p.r.n. (says he does not abuse or buy extra benzo's; father says otherwise); used to be on t.i.d. however has been on lower dose 1mg BID for past 9 months Thorazine For hyperemesis mirtazapine: Mostly for sleep permethazine: Hyperemesis methadonene: Hyperemesis methadone Patient educated on: diagnosis, medication risk/benefits and therapeutic strategies Informed Consent: understands Reason for continued inpatient stay Substantial Risk for: stable for discharge Time Spent With Patient Time: Total time managing care of this patient today ____ minutes.
[2024-07-24 19:43] VITALS: BP 134/90; RESP 16; TEMP 21.1; O2SAT 99
[2024-07-24 20:01] VITALS: BP 134/90
[2024-07-24] MEDS: Prazosin HCL 1 MG CAPSULE PO (20:01)
[2024-07-24] MEDS: Doxepin HCl 10 MG CAPSULE 30 MG PO (20:03)
[2024-07-24 20:05] VITALS: BP 134/90
[2024-07-24] MEDS: Mirtazapine 30 MG TABLET PO (20:05)
[2024-07-24] MEDS: Lithium Carbonate ER 300 MG TABLET.ER 1200 MG PO (20:05)
[2024-07-24] MEDS: cloNIDine HCL 0.1 MG TABLET PO (20:05)
[2024-07-25] MEDS: clonazePAM 1 MG TABLET PO ×2 (06:49→14:37)
[2024-07-25] MEDS: Omeprazole 20 MG CAPSULE.DR PO (06:49)
[2024-07-25] MEDS: chlorproMAZINE HCl 25 MG TABLET PO ×2 (06:49→20:33)
[2024-07-25] MEDS: Nicotine Polacrilex 2 MG GUM 4 MG BUCCAL ×3 (06:51→12:59)
[2024-07-25] MEDS: methADONE HCl 20 MG/2 ML ORAL.CONC 155 MG PO (07:33)
[2024-07-25 08:09] VITALS: BP 127/76; PULSE 71; TEMP 36.3; O2SAT 98
[2024-07-25] MEDS: Venlafaxine HCl ER 37.5 MG CAP.ER.24H 112.5 MG PO (08:24)
[2024-07-25] MEDS: Promethazine HCL 25 MG TABLET 12.5 MG PO ×2 (08:25→20:35)
[2024-07-25] MEDS: OLANZapine 5 MG TABLET PO ×3 (08:25→20:34)
[2024-07-25] MEDS: Nicotine 21 MG PATCH.TD24 TRANSDERMA (08:31)
--- NOTE | 2024-07-25 09:50 | HO.PSYCHPN ---
Subjective Subjective Date of Service: 07/25/24 Reason For Visit: Crisis Interim History: Met with patient; discussed with team Patient remains doing well, good mood anxiety under control. Eating and sleeping well. Patient had visited today which is the same person that is going to let him live there while he attends partial day program. Patient realize that his last script for clonazepam was picked up on July 08 however he says it is missing and has no idea where it is. Hospitality House Supervisor discussed that pharmacy/insurance will not refill script early. He said he is going to call his parents to have them look carefully through his belongings for it. Mental Status Exam Mental Status Exam Narrative: Pt is alert and oriented; behavior is cooperative, friendly, calm; patient is not in distress; dressed in casual attire with adequate grooming and hygiene; mood is described as good and affect congruent, brighter, more calm; eye contact appropriate; Speech is normal rate and volume normal prosody; no psychomotor retardation present; thought process is organized and goal directed; Thought content is on tx; otherwise pertinent to relevant topics and without any delusional content, paranoid ideations or grandiosity; no SI; no HI; denies AVH and there is no evidence of perceptual disturbance. Patients insight and judgment fair. Diagnostics Vital Signs (24Hr): Vital Signs - 24 hr 07/24/24 19:43 07/24/24 20:01 07/24/24 20:05 Temperature 70 F L Pulse Rate Respiratory Rate 16 Blood Pressure 134/90 H 134/90 H 134/90 H Pulse Oximetry 99 Oxygen Delivery Method Room Air 07/25/24 08:09 Temperature 97.3 F Pulse Rate 71 Respiratory Rate Blood Pressure 127/76 Pulse Oximetry 98 Oxygen Delivery Method Room Air BMI result Body Mass Index 34.6 Labs 07/18/24 10:39 07/20/24 11:08 Medications Medications Current Medications Acetaminophen (Acetaminophen 325 Mg Tablet) 650 mg PO Q6H PRN PRN Reason: Headache/Pain, Scale 1-10 Al Hydroxide/Mg Hydroxide (Magnesium Hydrox/Alum Hydrox 30 Ml Oral.Susp) 30 ml PO Q6H PRN PRN Reason: Heartburn/Nausea Chlorpromazine HCl (Chlorpromazine Hcl 25 Mg Tablet) 25 mg PO BID PRN PRN Reason: nausea (or mod anxiety) Last Admin: 07/25/24 06:49 Dose: 25 mg Clonazepam (Clonazepam 1 Mg Tablet) 1 mg PO BID@0800,1500 [facility] Last Admin: 07/25/24 06:49 Dose: 1 mg Clonazepam (Clonazepam 0.5 Mg Tablet) 0.5 mg PO DAILY PRN PRN Reason: breakthrough anxiety Last Admin: 07/23/24 20:07 Dose: 0.5 mg Clonidine HCl (Clonidine Hcl 0.1 Mg Tablet) 0.1 mg PO BEDTIME COLIN; Protocol Last Admin: 07/24/24 20:05 Dose: 0.1 mg Doxepin HCl (Doxepin Hcl 10 Mg Capsule) 30 mg PO BEDTIME COLIN Last Admin: 07/24/24 20:03 Dose: 30 mg Hydroxyzine HCl (Hydroxyzine Hcl 25 Mg Tablet) 25 mg PO Q6H PRN PRN Reason: mild anxiety Last Admin: 07/23/24 10:49 Dose: 25 mg [place] Carbonate ([place] Carbonate Er 300 Mg Tablet.Er) 1,200 mg PO BEDTIME COLIN Last Admin: 07/24/24 20:05 Dose: 1,200 mg Magnesium Hydroxide (Milk Of Magnesia 30 Ml Oral.Susp) 30 ml PO DAILY PRN PRN Reason: Constipation Methadone HCl (Methadone Hcl 20 Mg/2 Ml Oral.Conc) 155 mg PO DAILY@0800 [facility] Last Admin: 07/25/24 07:33 Dose: 155 mg Mirtazapine (Mirtazapine 30 Mg Tablet) 30 mg PO BEDTIME COLIN Last Admin: 07/24/24 20:05 Dose: 30 mg Nicotine (Nicotine 21 Mg Patch.Td24) 21 mg TRANSDERMA DAILY PRN PRN Reason: nicotine cravings Last Admin: 07/25/24 08:31 Dose: 21 mg Nicotine Polacrilex (Nicotine Polacrilex 2 Mg Gum) 4 mg BUCCAL Q2H PRN PRN Reason: Nicotine Cravings Last Admin: 07/25/24 09:08 Dose: 4 mg Olanzapine (Olanzapine 5 Mg Tablet) 5 mg PO TID PRN PRN Reason: mod to severe physical anxiety Last Admin: 07/25/24 08:25 Dose: 5 mg Omeprazole (Omeprazole 20 Mg Capsule.Dr) 20 mg PO DAILY@0630 [facility] Last Admin: 07/25/24 06:49 Dose: 20 mg Prazosin HCl (Prazosin Hcl 1 Mg Capsule) 1 mg PO BEDTIME COLIN; Protocol Last Admin: 07/24/24 20:01 Dose: 1 mg Promethazine HCl (Promethazine Hcl 25 Mg Tablet) 12.5 mg PO BID [facility] Last Admin: 07/25/24 08:25 Dose: 12.5 mg Trazodone HCl (Trazodone Hcl 50 Mg Tablet) 50 mg PO BEDTIME MRX1 PRN PRN Reason: Insomnia Venlafaxine HCl (Venlafaxine Hcl Er 37.5 Mg Cap.Er.24h) 112.5 mg PO DAILY [facility] Last Admin: 07/25/24 08:24 Dose: 112.5 mg Allergies Allergies Allergy/AdvReac Type Severity Reaction Status Date / Time No Known Allergies Allergy Verified 07/18/24 10:26 [No Known Allergies*] Assessment & Plan Assessment & Plan (1) MDD (major depressive disorder), recurrent severe, without psychosis: Status: Acute Code(s): F33.2 - Major depressive disorder, recurrent severe without psychotic features (2) PTSD (post-traumatic stress disorder): Status: Acute Code(s): F43.10 - Post-traumatic stress disorder, unspecified (3) Panic disorder: Status: Acute Code(s): F41.0 - Panic disorder [episodic paroxysmal anxiety] (4) Opioid use disorder, severe, on maintenance therapy: Status: Acute Code(s): F11.20 - Opioid dependence, uncomplicated (5) Cyclical vomiting: Status: Acute Code(s): R11.15 - Cyclical vomiting syndrome unrelated to migraine Plan Pt is 24-year-old male with history of depression, anxiety/panic, cyclical vomiting, opiate abuse who presents for worsening anxiety and subsequent depression, anxiety becoming intolerable. Patient reports that panic attacks have been going on for months and he gets up to 2 a day. However his anxiety is increased even further and agoraphobia has become entrenched; months ago, he would once in awhile go out of the house, but now he never leaves the house due to anxiety and fear of panic; his mother brings him food, pays the rent... Over the past couple weeks, patient has started to wonder if life is worth living, though he denies any intent or plan (no hx of SA). Patient initially said he has been sober for the past year; initially he reports he relapsed for 1 day, using heroin IV 1 time however later he said it had been going on for more than 1 day. Patient is hoping to get medication management to address debilitating anxiety. From nursing note: brought in by family due to emergence of psychotic symptoms possibly in the context of benzodiazepine abuse and intoxication. Pt reports severe anxiety, with the worst times between [id number] daily. Father reports use is out of control, stating pt has recently taken $700 to purchase benzodiazepines prior to admission. Discussed history of ajmes and patient denies any discrete manic episodes; he endorses periods of time where he was not sleeping but he was not also manic and thinks this was mostly due to anxiety; periods of agitation however he feels this is more a family dynamic than anything else. He denies any history of AVH or delusions unless during detoxing and says that he has had bad benzo withdrawals in the pas Formulation/clinical reasoning: Severe anxiety, panic, hyperemesis. Opioid use disorder. Not clear to the extent this point to what degree patient relapsed In the chart several diagnoses are listed including bipolar disorder and schizophrenia; patient does not present with any psychotic illness and it is quite possible that in the past, presentation with manic/psychotic symptoms were in the context of substance abuse. For now will leave these diagnoses as rule outs. Hospital course: 07/20 Reviewed risks/side effects of medication regimen -lithium level subtherapeutic; will increase dose and make it at bedtime -adding doxepin q.h.s. for insomnia; adding clonidine b.i.d. for anxiety; agreed to add clonazepam 0.5 mg daily as a p.r.n. 07/21 Patient says today he started to feel little better. He said he slept better last night overall which he thinks maybe due to less anxiety at bedtime which is new for him. He would like doxepin increased to which science writer agrees. Patient decided against going to a program for substance abuse but instead wants to attend partial day program, feeling he has been to numerous substance abuse programs and what he needs more is putting more emphasis on talking about other emotional struggles. Patient is planning to stay with a friend since he can not return to his apartment as he is being evicted. -patient remains on Methadone for MAT 07/22 Patient again slept better for which he is grateful. Still very anxious however. Said he woke up okay but at some point in the day got extremely anxious and it has not left him. Also wonders if part of it is due to nightmares at night which he continually has, feeling it colors the next day. Hospitality House Supervisor and patient engaged in CBT exercise which resonate with patient; he agreed to try and put into practice. Agrees to increasing doxepin and asks if he can be started on prazosin which had helped him in the past with nightmares. -science writer looked at patient's finger/abdominal lesion, both healing 07/23 Patient said that he is doing all right and feels that his anxiety is getting a little better or at least not as bad. 07/24 Patient reports he again is overall doing better. Says anxiety is no longer horrible and while it is still there the improvement is very welcomed. He feels that Zyprexa is significantly helping as is the extra 0.5 mg of clonazepam he can use as a p.r.n.. Also feels doxepin has been helpful and he has been able to sleep, feeling well rested but not groggy in the morning. 07/25 patient remained stable; establishing aftercare PLAN: CV Q 15 Add prazosin 1 mg q.h.s. for nightmare Continue lithium ER 1200 mg q.h.s. (subtherapeutic at 900 mg; changed to bedtime to help with insomnia) Continue clonidine 0.1 mg b.i.d. for anxiety Increase doxepin 30 mg q.h.s. for insomnia; also for anxiety/depression Continue clonazepam 0.5 mg daily p.r.n. for breakthrough anxiety; patient wants to go back to t.i.d. however science writer thinks best to avoid this; not sure if increase will be continued on discharge effexor XR 112mg (was on 75mg; says higher dose made him feel shaky). clonazepam 1mg BID p.r.n. (says he does not abuse or buy extra benzo's; father says otherwise); used to be on t.i.d. however has been on lower dose 1mg BID for past 9 months Thorazine For hyperemesis mirtazapine: Mostly for sleep permethazine: Hyperemesis methadonene: Hyperemesis methadone Patient educated on: diagnosis, medication risk/benefits and therapeutic strategies Informed Consent: understands Reason for continued inpatient stay Substantial Risk for: stable for discharge Time Spent With Patient Time: Total time managing care of this patient today ____ minutes.
[2024-07-25 20:00] VITALS: BP 138/92; PULSE 83; RESP 16; TEMP 36.9; O2SAT 99
[2024-07-25] MEDS: Lithium Carbonate ER 300 MG TABLET.ER 1200 MG PO (20:33)
[2024-07-25] MEDS: Doxepin HCl 10 MG CAPSULE 30 MG PO (20:34)
[2024-07-25] MEDS: Prazosin HCL 1 MG CAPSULE PO (20:34)
[2024-07-25] MEDS: cloNIDine HCL 0.1 MG TABLET PO (20:35)
[2024-07-25] MEDS: Mirtazapine 30 MG TABLET PO (20:50)
[2024-07-25] MEDS: clonazePAM 0.5 MG TABLET PO (21:03)
[2024-07-26] MEDS: Omeprazole 20 MG CAPSULE.DR PO (07:00)
[2024-07-26] MEDS: clonazePAM 1 MG TABLET PO ×2 (07:32→14:39)
[2024-07-26] MEDS: methADONE HCl 20 MG/2 ML ORAL.CONC 155 MG PO (07:55)
[2024-07-26] MEDS: Promethazine HCL 25 MG TABLET 12.5 MG PO ×2 (08:29→20:34)
[2024-07-26] MEDS: Venlafaxine HCl ER 37.5 MG CAP.ER.24H 112.5 MG PO (08:29)
[2024-07-26] MEDS: chlorproMAZINE HCl 25 MG TABLET PO ×2 (08:29→20:35)
[2024-07-26] MEDS: OLANZapine 5 MG TABLET PO ×3 (08:30→20:35)
[2024-07-26] MEDS: Nicotine Polacrilex 2 MG GUM 4 MG BUCCAL (08:30)
--- NOTE | 2024-07-26 10:07 | P.PNPSI_ITS ---
Subjective Subjective Date of Service: 07/26/24 Reason For Visit: Crisis Interim History: met with pt; discussed with team reports overall doing well but continued nightmares; ask for increased Prazosin to 2mg for continued nightmares Mental Status Exam Mental Status Exam Narrative: Pt is alert and oriented; behavior is cooperative, friendly, calm; patient is not in distress; dressed in casual attire with adequate grooming and hygiene; mood is described as good and affect congruent, brighter, more calm; eye contact appropriate; Speech is normal rate and volume normal prosody; no psychomotor retardation present; thought process is organized and goal directed; Thought content is on tx; otherwise pertinent to relevant topics and without any delusional content, paranoid ideations or grandiosity; no SI; no HI; denies AVH and there is no evidence of perceptual disturbance. Patients insight and judgment fair. Diagnostics Vital Signs (24Hr): Vital Signs - 24 hr 07/25/24 20:00 Temperature 98.5 F Pulse Rate 83 Respiratory Rate 16 Blood Pressure 138/92 H Pulse Oximetry 99 Oxygen Delivery Method Room Air BMI result Body Mass Index 34.6 Labs 07/18/24 10:39 07/26/24 10:51 Medications Medications Current Medications Acetaminophen (Acetaminophen 325 Mg Tablet) 650 mg PO Q6H PRN PRN Reason: Headache/Pain, Scale 1-10 Al Hydroxide/Mg Hydroxide (Magnesium Hydrox/Alum Hydrox 30 Ml Oral.Susp) 30 ml PO Q6H PRN PRN Reason: Heartburn/Nausea Chlorpromazine HCl (Chlorpromazine Hcl 25 Mg Tablet) 25 mg PO BID PRN PRN Reason: nausea (or mod anxiety) Last Admin: 07/26/24 08:29 Dose: 25 mg Clonazepam (Clonazepam 1 Mg Tablet) 1 mg PO BID@0800,1500 [facility] Last Admin: 07/26/24 07:32 Dose: 1 mg Clonazepam (Clonazepam 0.5 Mg Tablet) 0.5 mg PO DAILY PRN PRN Reason: breakthrough anxiety Last Admin: 07/25/24 21:03 Dose: 0.5 mg Clonidine HCl (Clonidine Hcl 0.1 Mg Tablet) 0.1 mg PO BEDTIME COLIN; Protocol Last Admin: 07/25/24 20:35 Dose: 0.1 mg Doxepin HCl (Doxepin Hcl 10 Mg Capsule) 30 mg PO BEDTIME COLIN Last Admin: 07/25/24 20:34 Dose: 30 mg Hydroxyzine HCl (Hydroxyzine Hcl 25 Mg Tablet) 25 mg PO Q6H PRN PRN Reason: mild anxiety Last Admin: 07/23/24 10:49 Dose: [address] [place] Carbonate ([place] Carbonate Er 300 Mg Tablet.Er) 1,200 mg PO BEDTIME COLIN Last Admin: 07/25/24 20:33 Dose: 1,200 mg Magnesium Hydroxide (Milk Of Magnesia 30 Ml Oral.Susp) 30 ml PO DAILY PRN PRN Reason: Constipation Methadone HCl (Methadone Hcl 20 Mg/2 Ml Oral.Conc) 155 mg PO DAILY@0800 [facility] Last Admin: 07/26/24 07:55 Dose: 155 mg Mirtazapine (Mirtazapine 30 Mg Tablet) 30 mg PO BEDTIME COLIN Last Admin: 07/25/24 20:50 Dose: 30 mg Nicotine (Nicotine 21 Mg Patch.Td24) 21 mg TRANSDERMA DAILY PRN PRN Reason: nicotine cravings Last Admin: 07/25/24 08:31 Dose: 21 mg Nicotine Polacrilex (Nicotine Polacrilex 2 Mg Gum) 4 mg BUCCAL Q2H PRN PRN Reason: Nicotine Cravings Last Admin: 07/26/24 08:30 Dose: 4 mg Olanzapine (Olanzapine 5 Mg Tablet) 5 mg PO TID PRN PRN Reason: mod to severe physical anxiety Last Admin: 07/26/24 08:30 Dose: 5 mg Omeprazole (Omeprazole 20 Mg Capsule.Dr) 20 mg PO DAILY@0630 [facility] Last Admin: 07/26/24 07:00 Dose: 20 mg Prazosin HCl (Prazosin Hcl 1 Mg Capsule) 1 mg PO BEDTIME COLIN; Protocol Last Admin: 07/25/24 20:34 Dose: 1 mg Promethazine HCl (Promethazine Hcl 25 Mg Tablet) 12.5 mg PO BID [facility] Last Admin: 07/26/24 08:29 Dose: 12.5 mg Trazodone HCl (Trazodone Hcl 50 Mg Tablet) 50 mg PO BEDTIME MRX1 PRN PRN Reason: Insomnia Venlafaxine HCl (Venlafaxine Hcl Er 37.5 Mg Cap.Er.24h) 112.5 mg PO DAILY [facility] Last Admin: 07/26/24 08:29 Dose: 112.5 mg Allergies Allergies Allergy/AdvReac Type Severity Reaction Status Date / Time No Known Allergies Allergy Verified 07/18/24 10:26 [No Known Allergies*] Assessment & Plan Assessment & Plan (1) MDD (major depressive disorder), recurrent severe, without psychosis: Status: Acute Code(s): F33.2 - Major depressive disorder, recurrent severe without psychotic features (2) PTSD (post-traumatic stress disorder): Status: Acute Code(s): F43.10 - Post-traumatic stress disorder, unspecified (3) Panic disorder: Status: Acute Code(s): F41.0 - Panic disorder [episodic paroxysmal anxiety] (4) Opioid use disorder, severe, on maintenance therapy: Status: Acute Code(s): F11.20 - Opioid dependence, uncomplicated (5) Cyclical vomiting: Status: Acute Code(s): R11.15 - Cyclical vomiting syndrome unrelated to migraine Plan Pt is 24-year-old male with history of depression, anxiety/panic, cyclical vomiting, opiate abuse who presents for worsening anxiety and subsequent depression, anxiety becoming intolerable. Patient reports that panic attacks have been going on for months and he gets up to 2 a day. However his anxiety is increased even further and agoraphobia has become entrenched; months ago, he would once in awhile go out of the house, but now he never leaves the house due to anxiety and fear of panic; his mother brings him food, pays the rent... Over the past couple weeks, patient has started to wonder if life is worth living, though he denies any intent or plan (no hx of SA). Patient initially said he has been sober for the past year; initially he reports he relapsed for 1 day, using heroin IV 1 time however later he said it had been going on for more than 1 day. Patient is hoping to get medication management to address debilitating anxiety. From nursing note: brought in by family due to emergence of psychotic symptoms possibly in the context of benzodiazepine abuse and intoxication. Pt reports severe anxiety, with the worst times between 1401-3069 daily. Father reports use is out of control, stating pt has recently taken $700 to purchase benzodiazepines prior to admission. Discussed history of james and patient denies any discrete manic episodes; he endorses periods of time where he was not sleeping but he was not also manic and thinks this was mostly due to anxiety; periods of agitation however he feels this is more a family dynamic than anything else. He denies any history of AVH or delusions unless during detoxing and says that he has had bad benzo withdrawals in the pas Formulation/clinical reasoning: Severe anxiety, panic, hyperemesis. Opioid use disorder. Not clear to the extent this point to what degree patient relapsed In the chart several diagnoses are listed including bipolar disorder and schizophrenia; patient does not present with any psychotic illness and it is quite possible that in the past, presentation with manic/psychotic symptoms were in the context of substance abuse. For now will leave these diagnoses as rule outs. Hospital course: 07/20 Reviewed risks/side effects of medication regimen -lithium level subtherapeutic; will increase dose and make it at bedtime -adding doxepin q.h.s. for insomnia; adding clonidine b.i.d. for anxiety; agreed to add clonazepam 0.5 mg daily as a p.r.n. 07/21 Patient says today he started to feel little better. He said he slept better last night overall which he thinks maybe due to less anxiety at bedtime which is new for him. He would like doxepin increased to which life insurance underwriter agrees. Patient decided against going to a program for substance abuse but instead wants to attend partial day program, feeling he has been to numerous substance abuse programs and what he needs more is putting more emphasis on talking about other emotional struggles. Patient is planning to stay with a friend since he can not return to his apartment as he is being evicted. -patient remains on Methadone for MAT 07/22 Patient again slept better for which he is grateful. Still very anxious however. Said he woke up okay but at some point in the day got extremely anxious and it has not left him. Also wonders if part of it is due to nightmares at night which he continually has, feeling it colors the next day. Network Security Analyst and patient engaged in CBT exercise which resonate with patient; he agreed to try and put into practice. Agrees to increasing doxepin and asks if he can be started on prazosin which had helped him in the past with nightmares. -life insurance underwriter looked at patient's finger/abdominal lesion, both healing 07/23 Patient said that he is doing all right and feels that his anxiety is getting a little better or at least not as bad. 07/24 Patient reports he again is overall doing better. Says anxiety is no longer horrible and while it is still there the improvement is very welcomed. He feels that Zyprexa is significantly helping as is the extra 0.5 mg of clonazepam he can use as a p.r.n.. Also feels doxepin has been helpful and he has been able to sleep, feeling well rested but not groggy in the morning. 07/25 patient remained stable; establishing aftercare 07/26 increase prazosin for continued nightmares; checked BP and wnl or elevated PLAN: CV Q 15 increase to prazosin 2 mg q.h.s. for nightmare Continue lithium ER 1200 mg q.h.s. (subtherapeutic at 900 mg; changed to bedtime to help with insomnia) Continue clonidine 0.1 mg b.i.d. for anxiety Increase doxepin 30 mg q.h.s. for insomnia; also for anxiety/depression Continue clonazepam 0.5 mg daily p.r.n. for breakthrough anxiety; patient wants to go back to t.i.d. however life insurance underwriter thinks best to avoid this; not sure if increase will be continued on discharge effexor XR 112mg (was on 75mg; says higher dose made him feel shaky). clonazepam 1mg BID p.r.n. (says he does not abuse or buy extra benzo's; father says otherwise); used to be on t.i.d. however has been on lower dose 1mg BID for past 9 months Thorazine For hyperemesis mirtazapine: Mostly for sleep permethazine: Hyperemesis methadonene: Hyperemesis methadone Patient educated on: diagnosis and medication risk/benefits Informed Consent: understands Reason for continued inpatient stay Substantial Risk for: stable for discharge Time Spent With Patient Time: Total time managing care of this patient today ____ minutes.
[2024-07-26 10:32] VITALS: BP 127/74; PULSE 83; RESP 16; TEMP 37.6; O2SAT 98
[2024-07-26 11:13] LABS: Lithium 0.67 mmol/L (0.60-1.20)
[2024-07-26 11:19] LABS: Blood Urea Nitrogen 11 mg/dL (9-16); Creatinine Clr Calc Pharmacy 160.9; Estimated Glomerular Filt Rate > 60
[2024-07-26 11:42] LABS: TSH reflex Free T4 1.36 uIU/mL (0.32-4.0)
[2024-07-26 20:00] VITALS: BP 128/83; PULSE 82; TEMP 36.9; O2SAT 98
[2024-07-26] MEDS: Doxepin HCl 10 MG CAPSULE 30 MG PO (20:35)
[2024-07-26] MEDS: Lithium Carbonate ER 300 MG TABLET.ER 1200 MG PO (20:36)
[2024-07-26] MEDS: Prazosin HCL 1 MG CAPSULE 2 MG PO (20:36)
[2024-07-26] MEDS: Mirtazapine 30 MG TABLET PO (20:37)
[2024-07-26] MEDS: clonazePAM 0.5 MG TABLET PO (20:37)
[2024-07-26] MEDS: cloNIDine HCL 0.1 MG TABLET PO (20:37)
[2024-07-27] MEDS: methADONE HCl 20 MG/2 ML ORAL.CONC 155 MG PO (07:42)
[2024-07-27] MEDS: clonazePAM 1 MG TABLET PO ×2 (07:50→14:11)
[2024-07-27] MEDS: Omeprazole 20 MG CAPSULE.DR PO (07:50)
[2024-07-27 08:15] VITALS: BP 134/88; PULSE 86; RESP 18; TEMP 36.7; O2SAT 98
[2024-07-27] MEDS: Promethazine HCL 25 MG TABLET 12.5 MG PO ×2 (08:24→19:53)
[2024-07-27] MEDS: OLANZapine 5 MG TABLET PO ×2 (08:25→19:49)
[2024-07-27] MEDS: chlorproMAZINE HCl 25 MG TABLET PO ×2 (08:25→19:49)
[2024-07-27] MEDS: Venlafaxine HCl ER 37.5 MG CAP.ER.24H 112.5 MG PO (08:25)
[2024-07-27] MEDS: Nicotine Polacrilex 2 MG GUM 4 MG BUCCAL ×2 (09:29→19:48)
[2024-07-27] MEDS: clonazePAM 0.5 MG TABLET PO (18:55)
[2024-07-27] MEDS: Lithium Carbonate ER 300 MG TABLET.ER 1200 MG PO (19:49)
[2024-07-27] MEDS: Doxepin HCl 10 MG CAPSULE 30 MG PO (19:50)
[2024-07-27 19:52] VITALS: BP 135/91
[2024-07-27] MEDS: Prazosin HCL 1 MG CAPSULE 2 MG PO (19:52)
[2024-07-27] MEDS: Mirtazapine 30 MG TABLET PO (19:53)
[2024-07-27 19:54] VITALS: BP 135/91
[2024-07-27] MEDS: cloNIDine HCL 0.1 MG TABLET PO (19:54)
[2024-07-27 20:00] VITALS: BP 135/91; PULSE 84; RESP 18; TEMP 36.8; O2SAT 98
[2024-07-28] MEDS: Omeprazole 20 MG CAPSULE.DR PO (06:13)
[2024-07-28] MEDS: methADONE HCl 20 MG/2 ML ORAL.CONC 155 MG PO (07:55)
[2024-07-28] MEDS: Promethazine HCL 25 MG TABLET 12.5 MG PO (08:15)
[2024-07-28] MEDS: clonazePAM 1 MG TABLET PO (08:15)
[2024-07-28] MEDS: Venlafaxine HCl ER 37.5 MG CAP.ER.24H 112.5 MG PO (08:15)
[2024-07-28] MEDS: chlorproMAZINE HCl 25 MG TABLET PO (08:48)
[2024-07-28] MEDS: OLANZapine 5 MG TABLET PO (08:49)
[2024-07-28] MEDS: Nicotine Polacrilex 2 MG GUM 4 MG BUCCAL (09:21)
[2024-07-28 09:53] VITALS: BP 113/58; PULSE 83; RESP 16; TEMP 36.6; O2SAT 97
[2024-07-28] MEDS: Naloxone HCl Nasal TAKE HOME 4 MG SPRAY 8 MG NOSTRILALT (10:48)
[2024-07-28] MEDS: clonazePAM 0.5 MG TABLET PO (10:48)
--- NOTE | 2024-07-28 10:54 | P.DS_ITS ---
DS: Providers Provider Date of Service: 07/28/24 Date of admission: 07/18/24 17:31 Date of discharge: 07/28/24 Primary care physician: Unknown Physician Attending physician on admission: Carlo Tesfaye Attending physician on discharge: Carlo Tesfaye DS: Diagnosis Discharge Diagnosis (1) MDD (major depressive disorder), recurrent severe, without psychosis: Status: Acute (2) PTSD (post-traumatic stress disorder): Status: Acute (3) Panic disorder: Status: Acute (4) Opioid use disorder, severe, on maintenance therapy: Status: Acute (5) Cyclical vomiting: Status: Acute DS: Medications Discharge Medications Home Medications: Home Medications ?Medication ?Instructions ?Recorded ?Confirmed clonazepam 1 mg tablet (Klonopin) 1 mg PO BID 07/18/24 07/18/24 Previous Rx's ?Medication ?Instructions ?Recorded chlorpromazine 25 mg tablet 25 mg PO TID PRN nausea. severe 07/28/24 anxiety 30 days #90 tabs clonazepam 0.5 mg tablet 0.5 mg PO DAILY PRN breakthrough 07/28/24 anxiety 30 days #30 tabs clonidine HCl 0.1 mg tablet 0.1 mg PO BEDTIME 30 days #30 tabs 07/28/24 doxepin 25 mg capsule 25 mg PO BEDTIME 30 days #30 caps 07/28/24 lithium carbonate 300 mg 1,200 mg (4 x 300 mg) PO BEDTIME 07/28/24 tablet,extended release 30 days #120 tabs methadone 10 mg/mL oral 155 mg (15.5 mL) PO DAILY@0800 #0 07/28/24 concentrate (Methadose) mL mirtazapine 30 mg tablet 30 mg PO BEDTIME 30 days #30 tabs 07/28/24 nicotine (polacrilex) 4 mg gum 4 mg buccal Q2H PRN nicotine 07/28/24 cravings 30 days #100 ea nicotine 21 mg/24 hr daily 21 mg transdermal DAILY PRN 07/28/24 transdermal patch nicotine cravings 28 days #28 ea olanzapine 5 mg tablet 5 mg PO TID PRN mod to severe 07/28/24 physical anxiety 30 days #60 tabs omeprazole 20 mg capsule,delayed 20 mg PO DAILY@0630 30 days #30 07/28/24 release caps prazosin 2 mg capsule 2 mg PO BEDTIME 30 days #30 caps 07/28/24 promethazine 25 mg tablet 25 mg PO BID 30 days #60 tabs 07/28/24 venlafaxine 37.5 mg 37.5 mg PO DAILY 30 days #30 caps 07/28/24 capsule,extended release 24 hr venlafaxine 75 mg capsule,extended 75 mg PO DAILY 30 days #30 caps 07/28/24 release 24 hr Mental Status Exam Mental Status Exam Narrative: Pt is alert and oriented; behavior is cooperative, friendly, calm; patient is not in distress; dressed in casual attire with adequate grooming and hygiene; mood is described as good and affect congruent, brighter, more calm; eye contact appropriate; Speech is normal rate and volume normal prosody; no psychomotor retardation present; thought process is organized and goal directed; Thought content is on tx; otherwise pertinent to relevant topics and without any delusional content, paranoid ideations or grandiosity; no SI; no HI; denies AVH and there is no evidence of perceptual disturbance. Patients insight and judgment fair. Data Data Completed and Pending Completed studies during hospitalization [Text1]: 07/26/24 10:51 BUN 11 Creatinine 0.94 Estim Creat Clear Calc 160.9 Estimated GFR > 60 TSH 1.36 Deweese 0.67 DS: Summary Hospital Course Hospital Course: HPI: Pt is 24-year-old male with history of depression, anxiety/panic, cyclical vomiting, opiate abuse who presents for worsening anxiety and subsequent depression, anxiety becoming intolerable. Patient reports that panic attacks have been going on for months and he gets up to 2 a day. However his anxiety is increased even further and agoraphobia has become entrenched; months ago, he would once in awhile go out of the house, but now he never leaves the house due to anxiety and fear of panic; his mother brings him food, pays the rent... Over the past couple weeks, patient has started to wonder if life is worth living, though he denies any intent or plan (no hx of SA). Patient initially said he has been sober for the past year; initially he reports he relapsed for 1 day, using heroin IV 1 time however later he said it had been going on for more than 1 day. Patient is hoping to get medication management to address debilitating anxiety. From nursing note: brought in by family due to emergence of psychotic symptoms possibly in the context of benzodiazepine abuse and intoxication. Pt reports severe anxiety, with the worst times between 5098-0897 daily. Father reports use is out of control, stating pt has recently taken $700 to purchase benzodiazepines prior to admission. Discussed history of james and patient denies any discrete manic episodes; he endorses periods of time where he was not sleeping but he was not also manic and thinks this was mostly due to anxiety; periods of agitation however he feels this is more a family dynamic than anything else. He denies any history of AVH or delusions unless during detoxing and says that he has had bad benzo withdrawals in the pas Formulation/clinical reasoning: Severe anxiety, panic, hyperemesis. Opioid use disorder. Not clear to the extent this point to what degree patient relapsed In the chart several diagnoses are listed including bipolar disorder and schizophrenia; patient does not present with any psychotic illness and it is quite possible that in the past, presentation with manic/psychotic symptoms were in the context of substance abuse. For now will leave these diagnoses as rule outs. Hospital course: Patient anxious and depressed on admission. Minimal, passive SI which soon fully resolved. Patient wanted help with medication management to shrink his depression, severe anxiety (which causes panic and contributes to hyperemesis) and ongoing chronic insomnia. Reviewed risks/side effects of medication regimen and several changes were made: He continued on venlafaxine, not able to tolerate a higher dose and continued on mirtazapine though this was increased; his Deweese dose was subtherapeutic so does was increased and moved to bedtime; added doxepin for insomnia and clonidine for anxiety; also added prazosin for nightmares which resolved and eventually added Zyprexa for breakthrough anxiety. On this medication regimen patient's symptoms significantly improved. Patient already on clonazepam 1 mg b.i.d. as an outpatient; [employer] agreed add clonazepam 0.5 mg daily as a p.r.n.. Patient's depression abated and he returned to good mood; he also reported that anxiety was significantly better than it had been in a long time, and was only minimally bothersome and of note, patient's affect was noticeably brighter and more calm. Patient did not want substance abuse treatment program; rather he wanted to remain on his methadone and continue with his own clinic; he decided he would like to go to [facility] which he thought would be more beneficial than a substance abuse program. On the unit, patient remained in good behavioral and impulse control and was appropriate with peers and staff. He did not go to many groups but was forthcoming in 1 on 1 sessions. Patient was unable to return to his living situation as he was evicted. He instead had a friend who was willing to let him stay while he attends IOP and looks for his own living situation. Patient remained without any SI at all. Patient felt ready for discharge. He of course remains vulnerable to relapse and decompensation and to some degree minimizes his substance use issues however this is a chronic issue, 1 of which he is well aware and he remains willing to engage in treatment. Patient is not in imminent risk for harm to self or others and appropriate to return to the community for treatment. Time spent discussing smoking cessation with patient: 3 to 10 minutes Status at Discharge Functional status at discharge: independent ambulation Overall status at discharge: patient is back to baseline Time Spent with Patient Time attestation: Total time managing care of this patient today __40__ minutes. Time spent: Greater than 30 minutes Specific discharge activities: Met with patient; discussed with team; charting; prescriptions Discharge Plan Discharge Anticipated Discharge Date/Time: 07/28/24 11:30 Patient Disposition: Xfer Other Discharge Diagnosis: MDD, recurrent, severe, without psychosis, in full r emission Referrals: [facility]- Therapy [Other] - 08/04/24 11:00 am (Please arrive 15 min prior to the intake appointment to complete intake paperwork, and a copy of their insurance card must be provided at the time of the intake appointment. Intake appointment is with Lindy Qureshi ) [facility]- Psychiatric Evaluation [Other] - 08/25/24 10:00 am (Appointment is via telehealth with Sammy Zamudio ) [facility]- Medication Management [Other] - 09/22/24 9:20 am (Appointment is with Sammy Zamudio ) [facility] [Other] - 1 Week (Bring your last dose letter and [facility] discharge paperwork with you ) [facility]- Intensive Outpatient Program (IOP) [Other] - 08/01/24 9:00 am (Please go in the main entrance and tell the medical receptionist assistant that you are there for an IOP intake appointment with Jessica and they will direct you where to go ) Physician,Keke J [Primary Care Provider] - 1 Week Discharge Medications: New promethazine 25 mg Tablet 25 mg PO BID 30 Days Qty: 60 0RF nicotine 21 mg/24 hr Patch 24 Hour 21 mg transdermal DAILY PRN (Reason: nicotine cravings) 28 Days Qty: 28 0RF Rx Instructions: remove at bedtime nicotine (polacrilex) 4 mg gum 4 mg buccal Q2H PRN (Reason: nicotine cravings) 30 Days Qty: 100 0RF clonidine HCl 0.1 mg Tablet 0.1 mg PO BEDTIME 30 Days Qty: 30 0RF Protocol: Hold for SBP< HOLD for SBP < : 90 prazosin 2 mg capsule 2 mg PO BEDTIME 30 Days Qty: 30 0RF clonazepam 0.5 mg Tablet 0.5 mg PO DAILY PRN (Reason: breakthrough anxiety) 30 Days Qty: 30 0RF doxepin 25 mg capsule 25 mg PO BEDTIME 30 Days Qty: 30 0RF lithium carbonate 300 mg Tablet Extended Release 1,200 mg PO BEDTIME 30 Days Qty: 120 0RF methadone [Methadose] 10 mg/mL Concentrate 155 mg PO DAILY@0800 Qty: 0 0RF Rx Instructions: Partial Fill upon patient request. olanzapine 5 mg Tablet 5 mg PO TID PRN (Reason: mod to severe physical anxiety) 30 Days Qty: 60 0RF venlafaxine 37.5 mg Capsule,Extended Release 24hr 37.5 mg PO DAILY 30 Days Qty: 30 0RF Rx Instructions: take with 75mg capsule omeprazole 20 mg Capsule,Delayed Release(Dr/Ec) 20 mg PO DAILY@0630 30 Days Qty: 30 0RF Continued clonazepam [Klonopin] 1 mg tablet 1 mg PO BID Changed venlafaxine 75 mg capsule,extended release 24hr 75 mg PO DAILY 30 Days Qty: 30 0RF Rx Instructions: take with 37.5mg capsule mirtazapine 30 mg tablet 30 mg PO BEDTIME 30 Days Qty: 30 0RF chlorpromazine 25 mg Tablet 25 mg PO TID PRN (Reason: nausea. severe anxiety) 30 Days Qty: 90 0RF Discontinued methadone 10 mg/mL Concentrate 150 mg PO DAILY Rx Instructions: Patient has three take home bottles from [facility] 150mg each lithium carbonate 450 mg Tablet Extended Release 450 mg PO BID 30 Days Qty: 60 0RF Discharge Orders: Discharge Order (Routine); Ordered 07/28/24 Ordered By: Carlo Tesfaye Diet: Regular diet Activity on Discharge: As tolerated Stand Alone Forms: Patient Portal Discharge page Print Language: Trinidadian Care Plan Goals: Maintain mood and safe behaviors Take medications as prescribed Continue to pursue sobriety Practice coping skills Continue with outpatient providers and reach out to them as needed Health Concerns: Mood stability and behaviors Sobriety Plan of Treatment: Follow up with your PCP, psychiatric provider and other outpatient providers regarding above concerns Take medications as prescribed Assessment: Risk assessment at time of discharge:? Patient was interviewed prior to discharge and found to be fully oriented and without any SI or HI. Patient has improved insight and judgment and wants to continue treatment. Patient is not in imminent risk of harm to self or others and has a safety plan that includes presenting to the closest ER or calling 911 if feeling unsafe.? Patient has been observed closely by nursing and unit staff throughout admission; patient has not engaged in any behaviors that suggest dangerousness to self or others and has demonstrated appropriate behaviors and impulse control
--- NOTE | 2024-07-29 01:52 | PC.NURSE ---
Explanation: Patient was given Clonazepam 0.5 mg po at 2039, July 24, 2024.
== END 2024-07-28 11:54 | disposition other institution (70) | DRG 751 ==
LOC: HO.ED 12:42 → HO.PM5 17:44
PROVIDERS: Psychiatry & Neurology Psychiatry; Registered Nurse Emergency; Admitting Provider Clinical Nurse Specialist Psychiatric/Mental Health, Adult; Emergency Provider Emergency Medicine; Visit Provider Clinical Nurse Specialist Psychiatric/Mental Health, Adult
DX: F33.2 Major depressive disorder, recurrent severe without psychotic features (principal); F11.20 Opioid dependence, uncomplicated; F17.210 Nicotine dependence, cigarettes, uncomplicated; Z71.6 Tobacco abuse counseling; F43.10 Post-traumatic stress disorder, unspecified; F41.0 Panic disorder [episodic paroxysmal anxiety]; Z79.899 Other long term (current) drug therapy
CPT/HCPCS: 36415; 80048; 80053; 80061; 80178; 80307; 81001; 82565; 82607; 82746; 83036; 83735; 84439; 84443; 84520; 85025; 93005; 99285; S9485

== ENCOUNTER 2024-07-18 17:31 | Outpatient (BNV) | payer MEDICAID, SELFPAY | END 2024-07-22 15:37 | PROVIDERS: Admitting Provider Clinical Nurse Specialist Psychiatric/Mental Health, Adult; Emergency Provider Emergency Medicine; Visit Provider Internal Medicine | DX: Z13.6 Encounter for screening for cardiovascular disorders (principal) | CPT/HCPCS: 93010 ==

== ENCOUNTER → 2024-07-18 17:31 | Outpatient (BNV) | payer OTHER, SELFPAY | PROVIDERS: Admitting Provider Clinical Nurse Specialist Psychiatric/Mental Health, Adult; Emergency Provider Emergency Medicine; Visit Provider Psychiatry & Neurology Psychiatry | DX: F33.2 Major depressive disorder, recurrent severe without psychotic features (principal); F11.20 Opioid dependence, uncomplicated; F43.11 Post-traumatic stress disorder, acute; F41.0 Panic disorder [episodic paroxysmal anxiety]; R11.15 Cyclical vomiting syndrome unrelated to migraine | CPT/HCPCS: 90792; 99231; 99232 ==

== ENCOUNTER 2024-11-06 13:29 | Inpatient (IN) | payer OTHER, SELFPAY ==
[2024-11-06 13:31] VITALS: BP 154/102; PULSE 122; RESP 17; TEMP 36.6; O2SAT 98; BMI 33.0
--- NOTE | 2024-11-06 13:31 | ED_ITS ---
HPI - Psych General Chief Complaint: Psychiatric Symptoms Stated Complaint: psych eval Time Seen by Provider: 11/06/24 13:53 Source: patient History of Present Illness ED Provider: Betsy Henao NP HPI Narrative: Patient is a 24-year-old male with past medical history of anxiety, depression, bipolar disorder, schizophrenia, PTSD, substance use disorder presenting with chief complaint of anxiety and suicidal ideations endorsing a plan to overdose. He states he has been compliant with taking his prescribed medications but despite this has still been feeling this way. Has not gotten out of bed in the past week. He denies any recreational drug or alcohol usage. Denies any homicidal ideations. Denies hallucinations. Offers no physical complaints. Related Data Home Medications ?Medication ?Instructions ?Recorded ?Confirmed clonazepam 1 mg tablet (Klonopin) 1 mg PO BID 07/18/24 11/06/24 chlorpromazine 25 mg tablet 25 mg PO BID PRN nausea. severe 11/06/24 11/06/24 anxiety lithium carbonate 300 mg 900 mg PO BEDTIME 11/06/24 11/06/24 tablet,extended release methadone 10 mg/mL oral 165 mg PO DAILY@0800 11/06/24 11/06/24 concentrate (Methadose) mirtazapine 30 mg tablet 15 mg PO BEDTIME 11/06/24 11/06/24 promethazine 25 mg tablet 12.5 mg PO BID 11/06/24 11/06/24 venlafaxine 37.5 mg 112.5 mg PO DAILY 11/06/24 11/06/24 capsule,extended release 24 hr Previous Rx's ?Medication ?Instructions ?Recorded clonidine HCl 0.1 mg tablet 0.1 mg PO BEDTIME 30 days #30 tabs 07/28/24 doxepin 25 mg capsule 25 mg PO BEDTIME 30 days #30 caps 07/28/24 nicotine (polacrilex) 4 mg gum 4 mg buccal Q2H PRN nicotine 07/28/24 cravings 30 days #100 ea nicotine 21 mg/24 hr daily 21 mg transdermal DAILY PRN 07/28/24 transdermal patch nicotine cravings 28 days #28 ea olanzapine 5 mg tablet 5 mg PO TID PRN mod to severe 07/28/24 physical anxiety 30 days #60 tabs omeprazole 20 mg capsule,delayed 20 mg PO DAILY@0630 30 days #30 07/28/24 release caps prazosin 2 mg capsule 2 mg PO BEDTIME 30 days #30 caps 07/28/24 Allergies Allergy/AdvReac Type Severity Reaction Status Date / Time No Known Allergies Allergy Verified 11/06/24 13:32 [No Known Allergies*] Review of Systems 2 Review of Systems: Yes all other systems are reviewed and are negative PMFSH Past Medical History Attestation statement: The following information was validated with the patient. Source: old records reviewed Medical History Cyclical vomiting MDD (major depressive disorder), recurrent severe, without psychosis Severe mood disorder with psychotic features PTSD (post-traumatic stress disorder) Opioid use disorder, severe, on maintenance therapy Cannabis use disorder, severe, dependence Severe benzodiazepine use disorder Anxiety Depression Opioid use disorder Social History Social History Household Members: Other Household Members Other:: father Housing: Apartment Do you presently have visiting nurse or other home services: No Alcohol intake: former Patient Tobacco Use Status: Current everyday Tobacco user Tobacco use type: Cigarette Cigarette Packs Per Day: 1 Cigarettes Per Day: 20.0 Years Smoked: 10 Smoked in Last 30 Days: Yes e-Cigarette/Vaping Use: Currently Using Patient Interested in Nicotine Replacement: Yes Patient Given Instructions on How to Stop Smoking: No Second Hand Smoke Exposure: No Use of substances other than those prescribed or required for medical reasons: No Substance Use Type: Marijuana, Opiates, Prescription Drugs and Caffiene Currently Displaying Signs/Symptoms of Drug Intoxication Withdrawal: No Advance Directives: No Advance Directives Information Provided: Yes Do you have thoughts of harming others: None Do you have a plan to hurt others: No Plan Recently lost weight without trying: No Eating poorly because of decreased appetite: No Nutrition Risks: No Nutritional Risk service: No Sexual orientation: Straight/Heterosexual Physical Exam 2 Vital Signs: Vital Signs: Last Vital Signs Temp 97.3 F 11/09/24 08:00 Pulse 88 11/09/24 08:00 Resp 16 11/09/24 08:00 BP 123/88 11/09/24 08:00 Pulse Ox 97 11/09/24 08:00 O2 Del Method Room Air 11/09/24 08:00 BMI result Body Mass Index 33.0 Appearance: Alert.?Oriented to person, place and time. No acute distress.?Normal affect. Eyes: Pupils equal, round and reactive to light.? ENT: Pharynx normal.?? Neck: Normal inspection.? Neck supple.?? CVS: Heart sounds normal. Normal heart rate and rhythm.? Pulses normal.?? Respiratory: No respiratory distress.? Lung sounds clear to auscultation bilaterally?? Abdomen: Soft and non-tender. Normoactive bowel sounds. Skin: Skin warm and dry.? Normal skin color.? Extremities: No lower extremity edema.? Neuro: Moves all extremities spontaneously. Sensation intact bilaterally. CN II- XII intact. No focal neuro deficits. Ambulates with normal steady gait. Course Course Course Narrative: This is a Rapid Medical Exam performed in triage by Shonna Mitchell PA-C. Full HPI, ROS and PE to be performed by primary ED provider. 24 yo M w/PMHx PTSD, MDD, anxiety, bipolar, schizophrenia, substance use, presenting to the ED c/o increased anxiety with +SI - states he would use drugs/OD & . Per pts roommate he has been in bed for 1 week & reports his meds are not working. Does admit to taking Rx meds. denies any ETOH or illicit drug use. PE: anxious, shaky Plan: Labs, LOZANO, CARE team consult Medications Administered Generic Name Dose Route Start Last Admin Trade Name Freq PRN Reason Stop Dose Admin Chlorpromazine HCl 25 mg 11/06/24 16:52 11/09/24 08:22 Chlorpromazine Hcl 25 Mg Tablet PO 25 mg BID PRN Administration nausea. severe anxiety Clonazepam 1 mg 11/06/24 21:00 11/09/24 08:21 Clonazepam 1 Mg Tablet PO 1 mg BID COLIN Administration Clonidine HCl 0.1 mg 11/06/24 21:00 11/08/24 20:59 Clonidine Hcl 0.1 Mg Tablet PO 0.1 mg BEDTIME COLIN Administration Protocol Doxepin HCl 25 mg 11/06/24 21:00 11/08/24 20:59 Doxepin Hcl 25 Mg Capsule PO 25 mg BEDTIME COLIN Administration [place] Carbonate 900 mg 11/06/24 21:00 11/08/24 21:01 [place] Carbonate Er 450 Mg Tablet.Er PO 900 mg BEDTIME COLIN Administration Methadone HCl 165 mg 11/07/24 08:00 11/09/24 08:03 Methadone Hcl 20 Mg/2 Ml Oral.Conc PO 165 mg DAILY@0800 COLIN Administration Mirtazapine 30 mg 11/08/24 21:00 11/08/24 21:00 Mirtazapine 30 Mg Tablet PO 30 mg BEDTIME COLIN Administration Nicotine 21 mg 11/06/24 16:52 11/07/24 15:01 Nicotine 21 Mg Patch.Td24 TRANSDERMA 21 mg DAILY PRN Administration nicotine cravings Nicotine Polacrilex 4 mg 11/06/24 16:52 11/09/24 17:19 Nicotine Polacrilex 2 Mg Gum BUCCAL 4 mg Q2H PRN Administration nicotine cravings Olanzapine 5 mg 11/06/24 16:52 11/09/24 08:21 Olanzapine 5 Mg Tablet PO 5 mg TID PRN Administration mod to severe physical anxiety Omeprazole 20 mg 11/07/24 06:30 11/09/24 05:37 Omeprazole 20 Mg Capsule.Dr PO 20 mg DAILY@0630 COLIN Administration Prazosin HCl 2 mg 11/06/24 21:00 11/08/24 21:00 Prazosin Hcl 1 Mg Capsule PO 2 mg BEDTIME COLIN Administration Protocol Promethazine HCl 12.5 mg 11/06/24 21:00 11/09/24 08:21 Promethazine Hcl 25 Mg Tablet PO 12.5 mg BID COLIN Administration Venlafaxine HCl 112.5 mg 11/07/24 09:00 11/09/24 08:21 Venlafaxine Hcl Er 37.5 Mg Cap.Er.24h PO 112.5 mg DAILY COLIN Administration Discontinued Medications Generic Name Dose Route Start Last Admin Trade Name Buzzq PRN Reason Stop Dose Admin Mirtazapine 15 mg 11/06/24 21:00 11/07/24 20:51 Mirtazapine 15 Mg Tablet PO 15 mg BEDTIME COLIN Administration Medical Decision Making Medical Decision Making MDM Narrative: Patient is a 24-year-old male ith past medical history of anxiety, depression, bipolar disorder, schizophrenia, PTSD, substance use disorder presenting for anxiety and suicidal ideation as per HPI, denying any recreational drug or alcohol usage, feeling this way over the past week despite taking his medications. He offers no physical complaints physical examination is benign. Will obtain serum labs and toxicology testing for medical clearance and refer to care team for disposition assistance. Differential Diagnosis Differential Diagnoses: The differential diagnosis associated with the presentation includes (See narrative above and below for further detail) Admission/Observation Consideration of admission/observation: Escalation of care including admission/observation considered Patient is being observed in the Emergency Department for depression and anxiety suicidal ideation. Observation time was started at 15:00 on 11/06/2024.?The patient is currently stable and non-toxic appearing. Observation is being initiated in the Emergency Department to allow time to help differentiate if the patient's depression and anxiety is due to Substance Induced Mood Disorder and Anxiety versus Major Depressive Disorder, Bipolar [place], Bipolar Depression, and Schizophrenia. The patient will receive frequent psychiatric assessments from the provider as well as from nursing staff. The patient will also be monitored for the need of PRN agitation medications such as Haldol, Ativan, and Benadryl. Consult Healthcare Provider Management of the patient was discussed with: Behavioral Health Provider (CARE team) Lab Data MDM Lab Attestation statement: I reviewed the patient's lab results. CBC is without leukocytosis, has a normocytic anemia that does not meet transfusion criteria, no thrombocytopenia. No significant electrolyte derangement. No YOLA. Overall unremarkable LFTs. Toxicology positive for methadone, fentanyl, benzodiazepines, marijuana, alcohol level nondetectable 11/06/24 14:20 11/08/24 11:52 Labs: Lab Results 11/06/24 11/06/24 11/06/24 Range/Units 14:05 14:17 14:20 WBC 8.9 (4.8-10.8) X10*3/uL RBC 4.58 L (4.60-5.80) X10*6/uL Hgb 13.8 L (14.0-18.0) g/dl Hct 40.3 L (42.0-52.0) % MCV 88.0 (80.0-98.0) fL MCH 30.1 (27.0-33.0) pg MCHC 34.2 (31.0-36.0) g/dl RDW 13.0 (11.0-16.0) % Plt Count 169 (160-400) X10*3/uL MPV 10.7 (9.4-12.4) fL Immature Gran % (Auto) 0.2 (0.0-0.4) % Neut % (Auto) 69.8 (45-73) % Lymph % (Auto) 20.8 (20-40) % [place] % (Auto) 6.8 (2-11) % Eos % (Auto) 1.0 (0-4) % Baso % (Auto) 1.4 (0-2) % Lymph # (Auto) 1.8 (1.2-4.9) X10*3/uL [place] # (Auto) 0.6 (0.1-1.2) X10*3/uL Eos # (Auto) 0.1 (0.0-0.4) X10*3/uL Baso # (Auto) 0.1 (0.0-0.2) X10*3/uL Abs Immat Gran (auto) 0.02 (0.00-0.03) X10*3/uL Absolute Neuts (auto) 6.2 (2.0-8.3) x10*3/uL Absolute Nucleated RBC 0.000 (0.0-0.012) X10*3/uL Nucleated RBC % (auto) 0.0 (0.0-0.2) /100WBC Sodium 141 (135-145) mmol/L Potassium 3.4 (3.3-5.1) mmol/L Chloride 109 H (96-108) mmol/L Carbon Dioxide 22 (22-29) mmol/L Anion Gap 13 (12-20) BUN 9 (9-16) mg/dL Creatinine 1.06 (0.5-1.4) mg/dL Estim Creat Clear Calc 139.3 Estimated GFR > 60 Random Glucose 103 (60-115) mg/dL Calcium 9.7 (8.4-10.2) mg/dL Magnesium 2.3 (1.6-2.6) mg/dL Total Bilirubin 0.6 (0.0-1.0) mg/dL Direct Bilirubin 0.2 (0.0-0.5) mg/dL AST 28 (5-37) U/L ALT 45 H (0-40) U/L Alkaline Phosphatase 84 (39-117) U/L Total Protein 7.8 (6.5-8.0) g/dL Albumin 5.1 H (3.5-5.0) g/dL Urine Color Yellow Urine Appearance Hazy Urine pH 6.0 (5.0-9.0) Ur Specific [place] >= 1.030 H (1.005-1.025) Urine Protein 30 (1+) H (Neg-Trace) mg/dL Urine Glucose (UA) Negative (Negative) mg/dL Urine Ketones Negative (Negative) mg/dL Urine Blood Negative (Negative) Urine Nitrite Negative (Negative) Ur Leukocyte Esterase Moderate (2+) H (Negative) Urine RBC 0-2 (0-2) /HPF Urine WBC 6-10 (0-5) /HPF Ur Squamous Epith Cells 3-5 (0-2) /HPF Calcium Oxalate Crystal Present Urine Bacteria 1+ (None Seen) Hyaline Casts 0-2 (0-2) /LPF Urine Opiates Screen Not Detected (Not Detect) Ur Buprenorphine Scrn Not Detected (Not Detect) ng/mL Ur Oxycodone Screen Not Detected (Not Detect) ng/mL Urine Methadone Screen Positive H (Not Detect) ng/mL Urine Fentanyl Screen POSITIVE H (Not Detect) Ur Barbiturates Screen Not Detected (Not Detect) Ur Phencyclidine Scrn Not Detected (Not Detect) Ur Amphetamines Screen Not Detected (Not Detect) U Benzodiazepines Scrn POSITIVE H (Not Detect) Urine Cocaine Screen Not Detected (Not Detect) U Marijuana (THC) Screen POSITIVE H (Not Detect) Ethyl Alcohol < 10 mg/dL Influenza Type A (PCR) NEGATIVE (Negative) Influenza Type B (PCR) NEGATIVE (Negative) RSV RNA Qual (PCR) NEGATIVE (Negative) SARS-CoV-2 RNA (RT-PCR) NEGATIVE (Negative) Radiology Impression Discussion of test interpretation with radiology: I have reviewed the radiologist's reading. External Record Review External record reviewed: Outpatient record Discharge Plan Discharge Clinical Impression: MDD (major depressive disorder), recurrent severe, without psychosis Patient Disposition: Admitted As Inpatient Discharge Date/Time: 11/07/24 13:47
[2024-11-06 14:00] VITALS: BP 135/88; PULSE 104; RESP 16; TEMP 36.7; O2SAT 97
--- OUTSIDE RECORDS SUMMARY | 2024-11-06 14:12 | XMS_ITS | Encounter Summary ---
Author Organization [facility] Address [address] [place] [address] Phone Care Team Providers Care Rayon Winder Name Role Phone Amador Smith MD Primary Care Provider [phone] Encounter Details Date Type Department Care Team (Late st Contact Info) Description 12/09/2010 Conversion Encounter [facility] - [address] [address] Social History Tobacco Use Types Packs/Day Years [...] on filedocumented in this encounter Care Teams Rayon Winder Relationship Specialty Start Date End Date Amador Smith MD [address] [place] [address] PCP - General 10/07/17 documented as of this encounter
[2024-11-06 14:14] LABS: Appearance Urine Hazy; Color Urine Yellow; Glucose Urine UA Negative (Negative); Leukocyte Esterase Urine Moderate (2+) (Negative); Nitrite Urine Negative (Negative); Specific Gravity - Urine >= 1.030 (1.005-1.025); UMIC TRIGGER UACC YES; Urine Blood Negative (Negative); Urine Ketones Negative (Negative); Urine Protein 30 (1+) mg/dL (Neg-Trace)
[2024-11-06 14:25] LABS: MANUAL DIFF FLAG NO
[2024-11-06 14:26] LABS: Amphetamine Screen Urine Not Detected (Not Detect); Barbiturates, Urine Not Detected (Not Detect); Benzodiazepines Screen Urine POSITIVE (Not Detect); Buprenorphine Scr Not Detected (Not Detect); Cannabinoid Screen Urine POSITIVE (Not Detect); Cocaine Screen Urine Not Detected (Not Detect); Fentanyl, urine POSITIVE (Not Detect); Methadone Screen, Urine Positive (Not Detect); Opiate Screen Urine Not Detected (Not Detect); Oxycodone Screen Urine Not Detected (Not Detect); Phencyclidine Screen Urine Not Detected (Not Detect)
[2024-11-06 14:28] LABS: Basophils Absolute Auto 0.1 X10*3/uL (0.0-0.2); Basophils Percent Auto 1.4 % (0-2); Eosinophils Absolute Auto 0.1 X10*3/uL (0.0-0.4); Hematocrit 40.3 % (42.0-52.0); Hemoglobin 13.8 g/dl (14.0-18.0); Imm Gran Abs Auto 0.02 X10*3/uL (0.00-0.03); Imm Gran Pct Auto 0.2 % (0.0-0.4); Lymphocytes Absolute Auto 1.8 X10*3/uL (1.2-4.9); Lymphocytes Percent Auto 20.8 % (20-40); Mean Corpuscular HGB Conc 34.2 g/dl (31.0-36.0); Mean Corpuscular Hemoglobin 30.1 pg (27.0-33.0); Mean Platelet Volume 10.7 fL (9.4-12.4); Monocytes Absolute Auto 0.6 X10*3/uL (0.1-1.2); Monocytes Percent Auto 6.8 % (2-11); Neutrophils Absolute Auto 6.2 x10*3/uL (2.0-8.3); Neutrophils Percent Auto 69.8 % (45-73); Platelet Count 169 X10*3/uL (160-400); Red Blood Count 4.58 X10*6/uL (4.60-5.80); White Blood Count 8.9 X10*3/uL (4.8-10.8)
[2024-11-06 14:31] LABS: RBC Urine 0-2 /HPF (0-2); UACC Culture Trigger YES
[2024-11-06 14:32] LABS: Bacteria Urine 1+ (None Seen); Calcium Oxalate Crystals Urine Present; Hyaline Casts Urine 0-2 /LPF (0-2)
--- NOTE | 2024-11-06 14:39 | PC.NURSE ---
PT AR[place] [facility] [place]UE TO INCREASED DEPRESSIVE SYMPTOMS. PT REPORTS THAT HE HAS NOT LEFT HIS BED IN A WEEK, HAS NO MOTIVATION AND HAS BEEN HAVING INCREASED THOUGHTS OF SUICIDE. PT REPORTS DECREASED APPETITE. HE REPORTS DECREASED SLEEP DUE TO RACING THOUGHTS AND HAS BEEN TAKING MORE OF HIS SLEEP AND ANTIPSYCHOTIC MEDS THAN PRESCRIBED. PT REPORTS THAT HE HAS BEEN MED COMPLIANT. 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 METHADONE ATTEMPTED TO BE VERIFIED BUT [facility] NOT AVAILABLE. WAITING CALL BACK. MEDICATIONS VERIFIED WITH [facility]. NO APPARENT DISTRESS AT THIS TIME.
[2024-11-06 14:44] LABS: Alanine Aminotransferase 45 U/L (0-40); Albumin Level 5.1 g/dL (3.5-5.0); Alkaline Phosphatase 84 U/L (39-117); Anion Gap 13 (12-20); Aspartate Amino Transferase 28 U/L (5-37); Bilirubin Direct 0.2 mg/dL (0.0-0.5); Bilirubin Total 0.6 mg/dL (0.0-1.0); Blood Urea Nitrogen 9 mg/dL (9-16); Calcium 9.7 mg/dL (8.4-10.2); Carbon Dioxide 22 mmol/L (22-29); Chloride 109 mmol/L (96-108); Creatinine Clr Calc Pharmacy 139.3; Estimated Glomerular Filt Rate > 60; Ethanol < 10 mg/dL; Glucose Random 103 mg/dL (60-115); Magnesium 2.3 mg/dL (1.6-2.6); Potassium 3.4 mmol/L (3.3-5.1); Sodium 141 mmol/L (135-145); Total Protein 7.8 g/dL (6.5-8.0)
--- NOTE | 2024-11-06 15:00 | MHC.EDTECH ---
This tech took over care of pt at 1500, patient is speaking with care team,pt is calm/cooperative at this time
[2024-11-06 15:02] LABS: Influenza A PCR NEGATIVE (Negative); Influenza B PCR NEGATIVE (Negative); Resp Syncy Virus RNA Qual PCR NEGATIVE (Negative); SARS COV2 PCR INHOUSE NEGATIVE (Negative)
--- NOTE | 2024-11-06 15:54 | HE.PHANOTE ---
RE: METHADONE DOSING Patient received methadone 165 mg at [facility] [phone], last dose on 11/04/24 with 2 take home doses per Luisa Zaidi. Per nurse Carolina, patient said he took the take home doses on 11/05/24 and 11/06/24.
--- NOTE | 2024-11-06 16:00 | MHC.EDTECH ---
Patient was given two puddings,shanon crackers and a cup of gingerale per request, patient is calm and cooperative at this time
--- NOTE | 2024-11-06 18:12 | MHC.EDTECH ---
Patient was given dinner tray
--- NOTE | 2024-11-06 20:02 | PC.NURSE ---
patient appeared to remain at rest presently respirations are even and unlabored patient appears in no distress
[2024-11-06] MEDS: Promethazine HCL 25 MG TABLET 12.5 MG PO (20:54)
[2024-11-06 20:55] VITALS: BP 135/88; BP 155/99; PULSE 76; RESP 16; TEMP 36.4; O2SAT 97
[2024-11-06] MEDS: cloNIDine HCL 0.1 MG TABLET PO (20:55)
[2024-11-06 20:56] VITALS: BP 155/99
[2024-11-06] MEDS: Mirtazapine 15 MG TABLET PO (20:56)
[2024-11-06] MEDS: clonazePAM 1 MG TABLET PO (20:56)
[2024-11-06] MEDS: Prazosin HCL 1 MG CAPSULE 2 MG PO (20:56)
[2024-11-06] MEDS: Lithium Carbonate ER 450 MG TABLET.ER 900 MG PO (20:56)
[2024-11-06] MEDS: Doxepin HCl 25 MG CAPSULE PO (20:56)
[2024-11-06] MEDS: OLANZapine 5 MG TABLET PO (21:08)
[2024-11-06] MEDS: chlorproMAZINE HCl 25 MG TABLET PO (21:08)
[2024-11-06] MEDS: Nicotine Polacrilex 2 MG GUM 4 MG BUCCAL (21:08)
--- NOTE | 2024-11-07 | ECG_ITS ---
Test Reason : check prolong qt Blood Pressure : */* mmHG Vent. Rate : 57 BPM Atrial Rate : 57 BPM P-R Int : 142 ms QRS Dur : 84 ms QT Int : 474 ms P-R-T Axes : 10 72 57 degrees QTcB Int : 461 ms Sinus bradycardia Otherwise normal ECG When compared with ECG of 22-Jul-2024 15:37, No significant change was found Referred By: Solitario Hauser Electronically Signed By: BHAKTI OSMAN MD
--- NOTE | 2024-11-07 03:07 | PC.NURSE ---
Took over care from RN Rosario's, pt sleeping at this time.
[2024-11-07] MEDS: Omeprazole 20 MG CAPSULE.DR PO (06:27)
[2024-11-07 06:28] VITALS: BP 116/72; PULSE 69; RESP 16; TEMP 37.1; O2SAT 98
--- NOTE | 2024-11-07 06:28 | PC.NURSE ---
pt medicated per Mar.
--- NOTE | 2024-11-07 07:06 | PC.NURSE ---
Addendum entered by Marina Topete RN 11/07/24 07:09: Pt is 24-year-old male with history of depression, anxiety/panic, cyclical vomiting, opiate abuse who presents for worsening anxiety and subsequent depression, anxiety becoming intolerable. Patient presented with increased anxiety and SI with plans to overdose. History of panic attacks have been going on for months and he gets up to 2 a day. However his anxiety is increased even further and agoraphobia has become entrenched; months ago, he would once in awhile go out of the house, but now he never leaves the house due to anxiety and fear of panic; his mother brings him food, pays the rent... Patient denies any drug or alcohol use but drug screen is positive for opiates. Original Note: Medical History Cyclical vomiting MDD (major depressive disorder), recurrent severe, without psychosis Severe mood disorder with psychotic features PTSD (post-traumatic stress disorder) Opioid use disorder, severe, on maintenance therapy Cannabis use disorder, severe, dependence Severe benzodiazepine use disorder Anxiety Depression Opioid use disorder
[2024-11-07] MEDS: Venlafaxine HCl ER 37.5 MG CAP.ER.24H 112.5 MG PO (10:47)
[2024-11-07] MEDS: Promethazine HCL 25 MG TABLET 12.5 MG PO ×2 (10:48→20:52)
[2024-11-07] MEDS: clonazePAM 1 MG TABLET PO ×2 (10:48→20:53)
[2024-11-07] MEDS: methADONE HCl 20 MG/2 ML ORAL.CONC 165 MG PO (11:28)
[2024-11-07] MEDS: Nicotine Polacrilex 2 MG GUM 4 MG BUCCAL ×2 (11:52→21:07)
[2024-11-07] MEDS: chlorproMAZINE HCl 25 MG TABLET PO ×2 (12:25→21:07)
--- NOTE | 2024-11-07 13:37 | PC.NURSE ---
Report given to Meche BAER on M3. Patient to transition to that unit for continued mental health treatment.
[2024-11-07 14:00] VITALS: BP 137/85; PULSE 110; RESP 18; TEMP 36.4; O2SAT 100
[2024-11-07 14:19] VITALS: BMI 37.2
[2024-11-07] MEDS: Nicotine 21 MG PATCH.TD24 TRANSDERMA (15:01)
--- NOTE | 2024-11-07 15:55 | PC.NURSE ---
Jeremy was admitted to [facility] at 1342 [place] [facility] [place] [facility] for treatment of anxiety and substance use disorder? Prior to admission pt was struggling with agoraphobia, panic attacks and ah. He reports he has been clean from all substances besides marijuana since July of this year. He is active in treatment at [facility] methadone clinic and [employer], It is unclear if he was compliant wtih rxd meds prior ro admission because he reports compliance then admits he wasn't taking prazosin and is vague about what else he may have missed. He reports poor sleep with nightmares of his time in longterm. He reports poor appetite and cyclic vomiting (20 x per week) which he attributes to anxiety. There is no associated weight loss. On admission Jeremy is alert, fully oriented, calm, pleasant and cooperative. He does not appear or report anxiety, I get a weird sense of calm when I'm in the hospital. Mood is depressed. Affect is blunted. He reports hearing voices in the vents but denies they are hallucinations. There is a family history of schizophrenia. Thought Process is organized, He denies ideation, plan or intent to harm self or others. Tox Screen was positive for fentanyl but denies recent fentanyl use ( last use in Jul 2024) Safety Checks are q 15 minutes.
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
[2024-11-07 20:00] VITALS: BP 107/53; PULSE 71; RESP 71; TEMP 36.9; O2SAT 99
[2024-11-07 20:49] VITALS: BP 120/61
[2024-11-07] MEDS: cloNIDine HCL 0.1 MG TABLET PO (20:49)
[2024-11-07] MEDS: Doxepin HCl 25 MG CAPSULE PO (20:50)
[2024-11-07] MEDS: Mirtazapine 15 MG TABLET PO (20:51)
[2024-11-07] MEDS: Lithium Carbonate ER 450 MG TABLET.ER 900 MG PO (20:51)
[2024-11-07] MEDS: Prazosin HCL 1 MG CAPSULE 2 MG PO (20:51)
[2024-11-07] MEDS: OLANZapine 5 MG TABLET PO (21:07)
[2024-11-08] MEDS: Omeprazole 20 MG CAPSULE.DR PO (06:41)
[2024-11-08 07:51] VITALS: BP 105/54; PULSE 63; RESP 16; TEMP 36.3; O2SAT 98
[2024-11-08] MEDS: methADONE HCl 20 MG/2 ML ORAL.CONC 165 MG PO (08:04)
[2024-11-08] MEDS: Venlafaxine HCl ER 37.5 MG CAP.ER.24H 112.5 MG PO (08:23)
[2024-11-08] MEDS: Promethazine HCL 25 MG TABLET 12.5 MG PO ×2 (08:23→21:02)
[2024-11-08] MEDS: OLANZapine 5 MG TABLET PO ×2 (08:23→21:01)
[2024-11-08] MEDS: Nicotine Polacrilex 2 MG GUM 4 MG BUCCAL ×2 (08:24→21:06)
[2024-11-08] MEDS: clonazePAM 1 MG TABLET PO ×2 (08:24→21:00)
[2024-11-08] MEDS: chlorproMAZINE HCl 25 MG TABLET PO ×2 (08:24→21:02)
[2024-11-08 08:30] LABS: Estimated Average Glucose 94 mg/dL; Hemoglobin A1c % 4.9 % (<6.0)
[2024-11-08 08:42] LABS: Alanine Aminotransferase 37 U/L (0-40); Albumin Level 4.5 g/dL (3.5-5.0); Alkaline Phosphatase 84 U/L (39-117); Aspartate Amino Transferase 23 U/L (5-37); Bilirubin Total 0.5 mg/dL (0.0-1.0); Blood Urea Nitrogen 12 mg/dL (9-16); Calcium 9.4 mg/dL (8.4-10.2); Cholesterol 214 mg/dL (<200); Creatinine Clr Calc Pharmacy 161.7; Estimated Glomerular Filt Rate > 60; Glucose Random 81 mg/dL (60-115); HDL Cholesterol 38 mg/dL (>40); Total Protein 7.2 g/dL (6.5-8.0); Triglycerides 465 mg/dL (<150)
[2024-11-08 08:52] LABS: Anion Gap 13 (12-20); Carbon Dioxide 26 mmol/L (22-29); Chloride 108 mmol/L (96-108); Potassium 4.3 mmol/L (3.3-5.1); Sodium 143 mmol/L (135-145)
--- NOTE | 2024-11-08 09:18 | P.PNPSI_ITS ---
Subjective Subjective Date of Service: 11/08/24 Reason For Visit: crisis Subjective Notes: Conditional Voluntary Interim History: Patient continues to report feeling anxious today; focused on increasing benzodiazepines. He reports not taking his medications daily as prescribed. [place] level 0.49 on 11/08/24. Pt educated regarding importance of medication compliance. Remeron increased to 30mg PO bedtime. He denies having nightmares last night. Denies vomiting yesterday and has not yet today. Pt reports he does not want to return to his friends apartment and would like to be discharged to a snf when ready. denies SI/HI/VH/AH. Medication Compliance: Yes Side effects from medications: No Attending Groups: No Mental Status Exam Mental Status Exam Narrative: Pt is alert and oriented; behavior is cooperative and calm; dressed in casual attire; mood is described as depressed and anxious ; eye contact appropriate; Speech is normal rate, volume and not pressured; thought process is organized; Thought content is on tx; denies SI/HI/VH/AH. Diagnostics Vital Signs (24Hr): Vital Signs - 24 hr 11/07/24 14:00 11/07/24 20:00 11/07/24 20:49 Temperature 97.5 F 98.4 F Pulse Rate 110 H 71 Respiratory Rate 18 71 H Blood Pressure 137/85 107/53 L 120/61 Pulse Oximetry 100 99 Oxygen Delivery Method Room Air Room Air 11/08/24 07:51 Temperature 97.3 F Pulse Rate 63 Respiratory Rate 16 Blood Pressure 105/54 L Pulse Oximetry 98 Oxygen Delivery Method Room Air BMI result Body Mass Index 37.2 Labs 11/06/24 14:20 11/08/24 11:52 Labs: Laboratory Results - last 48 hr 11/06/24 11/06/24 11/06/24 14:05 14:17 14:20 WBC 8.9 RBC 4.58 L Hgb 13.8 L Hct 40.3 L MCV 88.0 MCH 30.1 MCHC 34.2 RDW 13.0 Plt Count 169 MPV 10.7 Immature Gran % (Auto) 0.2 Neut % (Auto) 69.8 Lymph % (Auto) 20.8 [place] % (Auto) 6.8 Eos % (Auto) 1.0 Baso % (Auto) 1.4 Lymph # (Auto) 1.8 [place] # (Auto) 0.6 Eos # (Auto) 0.1 Baso # (Auto) 0.1 Abs Immat Gran (auto) 0.02 Absolute Neuts (auto) 6.2 Absolute Nucleated RBC 0.000 Nucleated RBC % (auto) 0.0 Sodium 141 Potassium 3.4 Chloride 109 H Carbon Dioxide 22 Anion Gap 13 BUN 9 Creatinine 1.06 Estim Creat Clear Calc 139.3 Estimated GFR > 60 Random Glucose 103 Estimat Average Glucose Hemoglobin A1c % Calcium 9.7 Magnesium 2.3 Total Bilirubin 0.6 Direct Bilirubin 0.2 AST 28 ALT 45 H Alkaline Phosphatase 84 Total Protein 7.8 Albumin 5.1 H Triglycerides Cholesterol LDL Cholesterol, Calc HDL Cholesterol Urine Color Yellow Urine Appearance Hazy Urine pH 6.0 Ur Specific [place] >= 1.030 H Urine Protein 30 (1+) H Urine Glucose (UA) Negative Urine Ketones Negative Urine Blood Negative Urine Nitrite Negative Ur Leukocyte Esterase Moderate (2+) H Urine RBC 0-2 Urine WBC 6-10 Ur Squamous Epith Cells 3-5 Calcium Oxalate Crystal Present Urine Bacteria 1+ Hyaline Casts 0-2 Urine Opiates Screen Not Detected Ur Buprenorphine Scrn Not Detected Ur Oxycodone Screen Not Detected Urine Methadone Screen Positive H Urine Fentanyl Screen POSITIVE H Ur Barbiturates Screen Not Detected Ur Phencyclidine Scrn Not Detected Ur Amphetamines Screen Not Detected U Benzodiazepines Scrn POSITIVE H Urine Cocaine Screen Not Detected U Marijuana (THC) Screen POSITIVE H Ethyl Alcohol < 10 Influenza Type A (PCR) NEGATIVE Influenza Type B (PCR) NEGATIVE RSV RNA Qual (PCR) NEGATIVE SARS-CoV-2 RNA (RT-PCR) NEGATIVE 11/08/24 08:12 WBC RBC Hgb Hct MCV MCH MCHC RDW Plt Count MPV Immature Gran % (Auto) Neut % (Auto) Lymph % (Auto) [place] % (Auto) Eos % (Auto) Baso % (Auto) Lymph # (Auto) [place] # (Auto) Eos # (Auto) Baso # (Auto) Abs Immat Gran (auto) Absolute Neuts (auto) Absolute Nucleated RBC Nucleated RBC % (auto) Sodium 143 Potassium 4.3 D Chloride 108 Carbon Dioxide 26 Anion Gap 13 BUN 12 Creatinine 0.97 Estim Creat Clear Calc 161.7 Estimated GFR > 60 Random Glucose 81 Estimat Average Glucose 94 Hemoglobin A1c % 4.9 Calcium 9.4 Magnesium Total Bilirubin 0.5 Direct Bilirubin AST 23 ALT 37 Alkaline Phosphatase 84 Total Protein 7.2 Albumin 4.5 Triglycerides 465 H Cholesterol 214 H LDL Cholesterol, Calc TNP HDL Cholesterol 38 L Urine Color Urine Appearance Urine pH Ur Specific [place] Urine Protein Urine Glucose (UA) Urine Ketones Urine Blood Urine Nitrite Ur Leukocyte Esterase Urine RBC Urine WBC Ur Squamous Epith Cells Calcium Oxalate Crystal Urine Bacteria Hyaline Casts Urine Opiates Screen Ur Buprenorphine Scrn Ur Oxycodone Screen Urine Methadone Screen Urine Fentanyl Screen Ur Barbiturates Screen Ur Phencyclidine Scrn Ur Amphetamines Screen U Benzodiazepines Scrn Urine Cocaine Screen U Marijuana (THC) Screen Ethyl Alcohol Influenza Type A (PCR) Influenza Type B (PCR) RSV RNA Qual (PCR) SARS-CoV-2 RNA (RT-PCR) Medications Medications Current Medications Acetaminophen (Acetaminophen 325 Mg Tablet) 650 mg PO Q6H PRN PRN Reason: Headache/Pain, Scale 1-10 Al Hydroxide/Mg Hydroxide (Magnesium Hydrox/Alum Hydrox 30 Ml Oral.Susp) 30 ml PO Q6H PRN PRN Reason: Heartburn/Nausea Chlorpromazine HCl (Chlorpromazine Hcl 25 Mg Tablet) 25 mg PO BID PRN PRN Reason: nausea. severe anxiety Last Admin: 11/08/24 08:24 Dose: 25 mg Clonazepam (Clonazepam 1 Mg Tablet) 1 mg PO BID [facility] Last Admin: 11/08/24 08:24 Dose: 1 mg Clonidine HCl (Clonidine Hcl 0.1 Mg Tablet) 0.1 mg PO BEDTIME COLIN; Protocol Last Admin: 11/07/24 20:49 Dose: 0.1 mg Doxepin HCl (Doxepin Hcl 25 Mg Capsule) 25 mg PO BEDTIME [facility]IN Last Admin: 11/07/24 20:50 Dose: 25 mg Hydroxyzine HCl (Hydroxyzine Hcl 25 Mg Tablet) 25 mg PO Q6H PRN PRN Reason: mild anxiety [place] Carbonate ([place] Carbonate Er 450 Mg Tablet.Er) 900 mg PO BEDTIME COLIN Last Admin: 11/07/24 20:51 Dose: 900 mg Magnesium Hydroxide (Milk Of Magnesia 30 Ml Oral.Susp) 30 ml PO DAILY PRN PRN Reason: Constipation Methadone HCl (Methadone Hcl 20 Mg/2 Ml Oral.Conc) 165 mg PO DAILY@0800 COLIN Last Admin: 11/08/24 08:04 Dose: 165 mg Mirtazapine (Mirtazapine 15 Mg Tablet) 15 mg PO BEDTIME [place]IN Last Admin: 11/07/24 20:51 Dose: 15 mg Nicotine (Nicotine 21 Mg Patch.Td24) 21 mg TRANSDERMA DAILY PRN PRN Reason: nicotine cravings Last Admin: 11/07/24 15:01 Dose: 21 mg Nicotine Polacrilex (Nicotine Polacrilex 2 Mg Gum) 4 mg BUCCAL Q2H PRN PRN Reason: nicotine cravings Last Admin: 11/08/24 08:24 Dose: 4 mg Olanzapine (Olanzapine 5 Mg Tablet) 5 mg PO TID PRN PRN Reason: mod to severe physical anxiety Last Admin: 11/08/24 08:23 Dose: 5 mg Omeprazole (Omeprazole 20 Mg Capsule.Dr) 20 mg PO DAILY@0630 COLIN Last Admin: 11/08/24 06:41 Dose: 20 mg Prazosin HCl (Prazosin Hcl 1 Mg Capsule) 2 mg PO BEDTIME COLIN; Protocol Last Admin: 11/07/24 20:51 Dose: 2 mg Promethazine HCl (Promethazine Hcl 25 Mg Tablet) 12.5 mg PO BID COLIN Last Admin: 11/08/24 08:23 Dose: 12.5 mg Trazodone HCl (Trazodone Hcl 50 Mg Tablet) 50 mg PO BEDTIME MRX1 PRN PRN Reason: Insomnia Venlafaxine HCl (Venlafaxine Hcl Er 37.5 Mg Cap.Er.24h) 112.5 mg PO DAILY [facility] Last Admin: 11/08/24 08:23 Dose: 112.5 mg Allergies Allergies Allergy/AdvReac Type Severity Reaction Status Date / Time No Known Allergies Allergy Verified 11/06/24 13:32 [No Known Allergies*] Assessment & Plan Assessment & Plan (1) MDD (major depressive disorder), recurrent severe, without psychosis: Status: Acute Code(s): F33.2 - Major depressive disorder, recurrent severe without psychotic features (2) Panic disorder: Status: Acute Code(s): F41.0 - Panic disorder [episodic paroxysmal anxiety] (3) PTSD (post-traumatic stress disorder): Status: Acute Code(s): F43.10 - Post-traumatic stress disorder, unspecified (4) Opioid use disorder, severe, on maintenance therapy: Status: Acute Code(s): F11.20 - Opioid dependence, uncomplicated (5) Cyclical vomiting: Status: Acute Code(s): R11.15 - Cyclical vomiting syndrome unrelated to migraine Plan Patient is a 24-year-old male with history of MDD, DELGADO, PTSD, opiate use disorder who self presented to [facility] due to suicidal ideation with a plan to overdose on substances secondary to increased depression, panic attacks and paranoia. Plan: CV 15 minute safety checks Obtain collateral Continue home medications Encourage groups Referral to PHP? Discharge planning 11/08: Patient continues to report feeling anxious today; focused on increasing benzodiazepines. He reports not taking his medications daily as prescribed. [place] level 0.49 on 11/08/24. Pt educated regarding importance of medication compliance. Remeron increased to 30mg PO bedtime. He denies having nightmares last night. Denies vomiting yesterday and has not yet today. Pt reports he does not want to return to his friends apartment and would like to be discharged to a snf when ready. denies SI/HI/VH/AH. Patient educated on: diagnosis, medication risk/benefits and therapeutic strategies Reason for continued inpatient stay Substantial Risk for: med/psych decompensation Time Spent With Patient Time: Total time managing care of this patient today _20___ minutes.
[2024-11-08 12:19] LABS: Lithium 0.49 mmol/L (0.60-1.20)
[2024-11-08 12:29] LABS: Blood Urea Nitrogen 13 mg/dL (9-16); Creatinine Clr Calc Pharmacy 153.8; Estimated Glomerular Filt Rate > 60
[2024-11-08 20:50] VITALS: BP 110/67; PULSE 60; RESP 16; TEMP 36.7; O2SAT 99
[2024-11-08 20:59] VITALS: BP 110/67
[2024-11-08] MEDS: Doxepin HCl 25 MG CAPSULE PO (20:59)
[2024-11-08] MEDS: cloNIDine HCL 0.1 MG TABLET PO (20:59)
[2024-11-08 21:00] VITALS: BP 110/67
[2024-11-08] MEDS: Prazosin HCL 1 MG CAPSULE 2 MG PO (21:00)
[2024-11-08] MEDS: Mirtazapine 30 MG TABLET PO (21:00)
[2024-11-08] MEDS: Lithium Carbonate ER 450 MG TABLET.ER 900 MG PO (21:01)
[2024-11-09] MEDS: Omeprazole 20 MG CAPSULE.DR PO (05:37)
[2024-11-09 08:00] VITALS: BP 123/88; PULSE 88; RESP 16; TEMP 36.3; O2SAT 97
[2024-11-09] MEDS: methADONE HCl 20 MG/2 ML ORAL.CONC 165 MG PO (08:03)
[2024-11-09] MEDS: OLANZapine 5 MG TABLET PO ×2 (08:21→20:31)
[2024-11-09] MEDS: Promethazine HCL 25 MG TABLET 12.5 MG PO ×2 (08:21→20:32)
[2024-11-09] MEDS: Venlafaxine HCl ER 37.5 MG CAP.ER.24H 112.5 MG PO (08:21)
[2024-11-09] MEDS: clonazePAM 1 MG TABLET PO ×2 (08:21→20:30)
[2024-11-09] MEDS: chlorproMAZINE HCl 25 MG TABLET PO ×2 (08:22→20:31)
[2024-11-09] MEDS: Nicotine Polacrilex 2 MG GUM 4 MG BUCCAL ×3 (08:22→20:33)
--- NOTE | 2024-11-09 13:40 | P.PNPSI_ITS ---
Subjective Subjective Date of Service: 11/09/24 Reason For Visit: crisis Subjective Notes: Conditional Voluntary Interim History: Isolating in room. Patient continues to report feeling anxious; pt stated, it's nothing in particular that makes me anxious . Denies vomiting yesterday and today. Passive SI with no plan or intent. denies HI/VH/AH. per nursing, slept 7 hours. Continue current tx plan. Medication Compliance: Yes Side effects from medications: No Attending Groups: Intermittent Mental Status Exam Mental Status Exam Narrative: Pt is alert and oriented; behavior is cooperative and calm; dressed in casual attire; mood is described as depressed and anxious ; eye contact appropriate; Speech is normal rate, volume and not pressured; thought process is organized; Thought content is on tx; denies HI/VH/AH. Passive SI; no plan or intent. Diagnostics Vital Signs (24Hr): Vital Signs - 24 hr 11/08/24 20:50 11/08/24 20:59 11/08/24 21:00 Temperature 98.1 F Pulse Rate 60 Respiratory Rate 16 Blood Pressure 110/67 110/67 110/67 Pulse Oximetry 99 Oxygen Delivery Method Room Air 11/09/24 08:00 Temperature 97.3 F Pulse Rate 88 Respiratory Rate 16 Blood Pressure 123/88 Pulse Oximetry 97 Oxygen Delivery Method Room Air BMI result Body Mass Index 37.2 Labs 11/06/24 14:20 11/08/24 11:52 Labs: Laboratory Results - last 48 hr 11/08/24 11/08/24 08:12 11:52 Sodium 143 Potassium 4.3 D Chloride 108 Carbon Dioxide 26 Anion Gap 13 BUN 12 13 Creatinine 0.97 1.02 Estim Creat Clear Calc 161.7 153.8 Estimated GFR > 60 > 60 Random Glucose 81 Estimat Average Glucose 94 Hemoglobin A1c % 4.9 Calcium 9.4 Total Bilirubin 0.5 AST 23 ALT 37 Alkaline Phosphatase 84 Total Protein 7.2 Albumin 4.5 Triglycerides 465 H Cholesterol 214 H LDL Cholesterol, Calc TNP HDL Cholesterol 38 L TSH 0.90 [place] 0.49 L Medications Medications Current Medications Acetaminophen (Acetaminophen 325 Mg Tablet) 650 mg PO Q6H PRN PRN Reason: Headache/Pain, Scale 1-10 Al Hydroxide/Mg Hydroxide (Magnesium Hydrox/Alum Hydrox 30 Ml Oral.Susp) 30 ml PO Q6H PRN PRN Reason: Heartburn/Nausea Chlorpromazine HCl (Chlorpromazine Hcl 25 Mg Tablet) 25 mg PO BID PRN PRN Reason: nausea. severe anxiety Last Admin: 11/09/24 08:22 Dose: 25 mg Clonazepam (Clonazepam 1 Mg Tablet) 1 mg PO BID [facility] Last Admin: 11/09/24 08:21 Dose: 1 mg Clonidine HCl (Clonidine Hcl 0.1 Mg Tablet) 0.1 mg PO BEDTIME [facility]; Protocol Last Admin: 11/08/24 20:59 Dose: 0.1 mg Doxepin HCl (Doxepin Hcl 25 Mg Capsule) 25 mg PO BEDTIME [facility] Last Admin: 11/08/24 20:59 Dose: 25 mg Hydroxyzine HCl (Hydroxyzine Hcl 25 Mg Tablet) 25 mg PO Q6H PRN PRN Reason: mild anxiety [place] Carbonate ([place] Carbonate Er 450 Mg Tablet.Er) 900 mg PO BEDTIME [facility] Last Admin: 11/08/24 21:01 Dose: 900 mg Magnesium Hydroxide (Milk Of Magnesia 30 Ml Oral.Susp) 30 ml PO DAILY PRN PRN Reason: Constipation Methadone HCl (Methadone Hcl 20 Mg/2 Ml Oral.Conc) 165 mg PO DAILY@0800 [facility] Last Admin: 11/09/24 08:03 Dose: 165 mg Mirtazapine (Mirtazapine 30 Mg Tablet) 30 mg PO BEDTIME [facility] Last Admin: 11/08/24 21:00 Dose: 30 mg Nicotine (Nicotine 21 Mg Patch.Td24) 21 mg TRANSDERMA DAILY PRN PRN Reason: nicotine cravings Last Admin: 11/07/24 15:01 Dose: 21 mg Nicotine Polacrilex (Nicotine Polacrilex 2 Mg Gum) 4 mg BUCCAL Q2H PRN PRN Reason: nicotine cravings Last Admin: 11/09/24 08:22 Dose: 4 mg Olanzapine (Olanzapine 5 Mg Tablet) 5 mg PO TID PRN PRN Reason: mod to severe physical anxiety Last Admin: 11/09/24 08:21 Dose: 5 mg Omeprazole (Omeprazole 20 Mg Capsule.Dr) 20 mg PO DAILY@0630 [facility] Last Admin: 11/09/24 05:37 Dose: 20 mg Prazosin HCl (Prazosin Hcl 1 Mg Capsule) 2 mg PO BEDTIME [facility]; Protocol Last Admin: 11/08/24 21:00 Dose: 2 mg Promethazine HCl (Promethazine Hcl 25 Mg Tablet) 12.5 mg PO BID [facility] Last Admin: 11/09/24 08:21 Dose: 12.5 mg Trazodone HCl (Trazodone Hcl 50 Mg Tablet) 50 mg PO BEDTIME MRX1 PRN PRN Reason: Insomnia Venlafaxine HCl (Venlafaxine Hcl Er 37.5 Mg Cap.Er.24h) 112.5 mg PO DAILY [facility] Last Admin: 11/09/24 08:21 Dose: 112.5 mg Allergies Allergies Allergy/AdvReac Type Severity Reaction Status Date / Time No Known Allergies Allergy Verified 11/06/24 13:32 [No Known Allergies*] Assessment & Plan Assessment & Plan (1) MDD (major depressive disorder), recurrent severe, without psychosis: Status: Acute Code(s): F33.2 - Major depressive disorder, recurrent severe without psychotic features (2) Panic disorder: Status: Acute Code(s): F41.0 - Panic disorder [episodic paroxysmal anxiety] (3) PTSD (post-traumatic stress disorder): Status: Acute Code(s): F43.10 - Post-traumatic stress disorder, unspecified (4) Opioid use disorder, severe, on maintenance therapy: Status: Acute Code(s): F11.20 - Opioid dependence, uncomplicated (5) Cyclical vomiting: Status: Acute Code(s): R11.15 - Cyclical vomiting syndrome unrelated to migraine Plan Patient is a 24-year-old male with history of MDD, DELGADO, PTSD, opiate use disorder who self presented to [facility] ER due to suicidal ideation with a plan to overdose on substances secondary to increased depression, panic attacks and paranoia. Plan: CV 15 minute safety checks Obtain collateral Continue home medications Encourage groups Referral to [facility]? Discharge planning 11/08: Patient continues to report feeling anxious today; focused on increasing benzodiazepines. He reports not taking his medications daily as prescribed. [place] level 0.49 on 11/08/24. Pt educated regarding importance of medication compliance. Remeron increased to 30mg PO bedtime. He denies having nightmares last night. Denies vomiting yesterday and has not yet today. Pt reports he does not want to return to his friends apartment and would like to be discharged to a snf when ready. denies SI/HI/VH/AH. 11/09: Isolating in room. Patient continues to report feeling anxious; pt stated, it's nothing in particular that makes me anxious . Denies vomiting yesterday and today. Passive SI with no plan or intent. denies HI/VH/AH. per nursing, slept 7 hours. Continue current tx plan. Patient educated on: diagnosis, medication risk/benefits and therapeutic strategies Reason for continued inpatient stay Substantial Risk for: med/psych decompensation Time Spent With Patient Time: Total time managing care of this patient today _20___ minutes.
[2024-11-09 20:22] VITALS: BP 124/84; PULSE 78; RESP 16; TEMP 36.9; O2SAT 98
[2024-11-09] MEDS: Doxepin HCl 25 MG CAPSULE PO (20:31)
[2024-11-09] MEDS: cloNIDine HCL 0.1 MG TABLET PO (20:31)
[2024-11-09] MEDS: Prazosin HCL 1 MG CAPSULE 2 MG PO (20:32)
[2024-11-09] MEDS: Lithium Carbonate ER 450 MG TABLET.ER 900 MG PO (20:33)
[2024-11-09] MEDS: Mirtazapine 30 MG TABLET PO (20:33)
[2024-11-10] MEDS: Omeprazole 20 MG CAPSULE.DR PO (05:51)
[2024-11-10] MEDS: methADONE HCl 20 MG/2 ML ORAL.CONC 165 MG PO (07:58)
[2024-11-10 08:00] VITALS: BP 117/68; PULSE 69; TEMP 36.8; O2SAT 97
[2024-11-10] MEDS: Nicotine Polacrilex 2 MG GUM 4 MG BUCCAL ×3 (08:01→20:36)
[2024-11-10] MEDS: Nicotine 21 MG PATCH.TD24 TRANSDERMA (08:01)
[2024-11-10] MEDS: clonazePAM 1 MG TABLET PO (08:01)
[2024-11-10] MEDS: Venlafaxine HCl ER 37.5 MG CAP.ER.24H 112.5 MG PO (08:02)
[2024-11-10] MEDS: OLANZapine 5 MG TABLET PO ×2 (08:02→20:37)
[2024-11-10] MEDS: Promethazine HCL 25 MG TABLET 12.5 MG PO ×2 (08:02→20:35)
[2024-11-10] MEDS: chlorproMAZINE HCl 25 MG TABLET PO ×2 (08:02→20:37)
--- NOTE | 2024-11-10 12:56 | HO.PSYCHPN ---
Subjective Subjective Date of Service: 11/10/24 Reason For Visit: crisis Subjective Notes: Conditional Voluntary Interim History: Patient continues to report feeling anxious and depressed; he is requesting his klonopin to be TID; dose changed to klonopin 1mg PO daily, and 0.5mg PO BID@15,00, 2100; pt aware. He reports feeling hopeful ; pt stated, when I'm in the hospital my stomach is fine. I'm trying to be hopeful. 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 I just get down on myself because of my anxiety . denies SI/HI/VH/AH. [place] level to be redrawn on 11/14/24. Pt reports he plans on showering today. Medication Compliance: Yes Side effects from medications: No Attending Groups: No Mental Status Exam Mental Status Exam Narrative: Pt is alert and oriented; behavior is cooperative and calm; dressed in casual attire; mood is described as depressed and anxious ; eye contact appropriate; Speech is normal rate, volume and not pressured; thought process is organized; Thought content is on tx; denies SI/HI/VH/AH. Diagnostics Vital Signs (24Hr): Vital Signs - 24 hr 11/09/24 20:22 11/10/24 08:00 Temperature 98.4 F 98.3 F Pulse Rate 78 69 Respiratory Rate 16 Blood Pressure 124/84 117/68 Pulse Oximetry 98 97 Oxygen Delivery Method Room Air Room Air BMI result Body Mass Index 37.2 Labs 11/06/24 14:20 11/08/24 11:52 Medications Medications Current Medications Acetaminophen (Acetaminophen 325 Mg Tablet) 650 mg PO Q6H PRN PRN Reason: Headache/Pain, Scale 1-10 Al Hydroxide/Mg Hydroxide (Magnesium Hydrox/Alum Hydrox 30 Ml Oral.Susp) 30 ml PO Q6H PRN PRN Reason: Heartburn/Nausea Chlorpromazine HCl (Chlorpromazine Hcl 25 Mg Tablet) 25 mg PO BID PRN PRN Reason: nausea. severe anxiety Last Admin: 11/10/24 08:02 Dose: 25 mg Clonazepam (Clonazepam 1 Mg Tablet) 1 mg PO BID [facility] Last Admin: 11/10/24 08:01 Dose: 1 mg Clonidine HCl (Clonidine Hcl 0.1 Mg Tablet) 0.1 mg PO BEDTIME [facility]; Protocol Last Admin: 11/09/24 20:31 Dose: 0.1 mg Doxepin HCl (Doxepin Hcl 25 Mg Capsule) 25 mg PO BEDTIME [facility] Last Admin: 11/09/24 20:31 Dose: 25 mg Hydroxyzine HCl (Hydroxyzine Hcl 25 Mg Tablet) 25 mg PO Q6H PRN PRN Reason: mild anxiety [place] Carbonate ([place] Carbonate Er 450 Mg Tablet.Er) 900 mg PO BEDTIME [facility] Last Admin: 11/09/24 20:33 Dose: 900 mg Magnesium Hydroxide (Milk Of Magnesia 30 Ml Oral.Susp) 30 ml PO DAILY PRN PRN Reason: Constipation Methadone HCl (Methadone Hcl 20 Mg/2 Ml Oral.Conc) 165 mg PO DAILY@0800 [facility] Last Admin: 11/10/24 07:58 Dose: 165 mg Mirtazapine (Mirtazapine 30 Mg Tablet) 30 mg PO BEDTIME [facility] Last Admin: 11/09/24 20:33 Dose: 30 mg Nicotine (Nicotine 21 Mg Patch.Td24) 21 mg TRANSDERMA DAILY PRN PRN Reason: nicotine cravings Last Admin: 11/10/24 08:01 Dose: 21 mg Nicotine Polacrilex (Nicotine Polacrilex 2 Mg Gum) 4 mg BUCCAL Q2H PRN PRN Reason: nicotine cravings Last Admin: 11/10/24 08:01 Dose: 4 mg Olanzapine (Olanzapine 5 Mg Tablet) 5 mg PO TID PRN PRN Reason: mod to severe physical anxiety Last Admin: 11/10/24 08:02 Dose: 5 mg Omeprazole (Omeprazole 20 Mg Capsule.Dr) 20 mg PO DAILY@0630 [facility] Last Admin: 11/10/24 05:51 Dose: 20 mg Prazosin HCl (Prazosin Hcl 1 Mg Capsule) 2 mg PO BEDTIME [facility]; Protocol Last Admin: 11/09/24 20:32 Dose: 2 mg Promethazine HCl (Promethazine Hcl 25 Mg Tablet) 12.5 mg PO BID [facility] Last Admin: 11/10/24 08:02 Dose: 12.5 mg Trazodone HCl (Trazodone Hcl 50 Mg Tablet) 50 mg PO BEDTIME MRX1 PRN PRN Reason: Insomnia Venlafaxine HCl (Venlafaxine Hcl Er 37.5 Mg Cap.Er.24h) 112.5 mg PO DAILY [facility] Last Admin: 11/10/24 08:02 Dose: 112.5 mg Allergies Allergies Allergy/AdvReac Type Severity Reaction Status Date / Time No Known Allergies Allergy Verified 11/06/24 13:32 [No Known Allergies*] Assessment & Plan Assessment & Plan (1) MDD (major depressive disorder), recurrent severe, without psychosis: Status: Acute Code(s): F33.2 - Major depressive disorder, recurrent severe without psychotic features (2) Panic disorder: Status: Acute Code(s): F41.0 - Panic disorder [episodic paroxysmal anxiety] (3) PTSD (post-traumatic stress disorder): Status: Acute Code(s): F43.10 - Post-traumatic stress disorder, unspecified (4) Opioid use disorder, severe, on maintenance therapy: Status: Acute Code(s): F11.20 - Opioid dependence, uncomplicated (5) Cyclical vomiting: Status: Acute Code(s): R11.15 - Cyclical vomiting syndrome unrelated to migraine Plan Patient is a 24-year-old male with history of MDD, DELGADO, PTSD, opiate use disorder who self presented to [facility] ER due to suicidal ideation with a plan to overdose on substances secondary to increased depression, panic attacks and paranoia. Plan: CV 15 minute safety checks Obtain collateral Continue home medications Encourage groups Referral to [facility]? Discharge planning 11/08: Patient continues to report feeling anxious today; focused on increasing benzodiazepines. He reports not taking his medications daily as prescribed. [place] level 0.49 on 11/08/24. Pt educated regarding importance of medication compliance. Remeron increased to 30mg PO bedtime. He denies having nightmares last night. Denies vomiting yesterday and has not yet today. Pt reports he does not want to return to his friends apartment and would like to be discharged to a custodial when ready. denies SI/HI/VH/AH. 11/09: Isolating in room. Patient continues to report feeling anxious; pt stated, it's nothing in particular that makes me anxious . Denies vomiting yesterday and today. Passive SI with no plan or intent. denies HI/VH/AH. per nursing, slept 7 hours. Continue current tx plan. 11/10: Patient continues to report feeling anxious and depressed; he is requesting his klonopin to be TID; dose changed to klonopin 1mg PO daily, and 0.5mg PO BID@15,00, 2100; pt aware. He reports feeling hopeful ; pt stated, when I'm in the hospital my stomach is fine. I'm trying to be hopeful. 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 I just get down on myself because of my anxiety . denies SI/HI/VH/AH. [place] level to be redrawn on 11/14/24. Pt reports he plans on showering today. Patient educated on: diagnosis, medication risk/benefits and therapeutic strategies Reason for continued inpatient stay Substantial Risk for: med/psych decompensation Time Spent With Patient Time: Total time managing care of this patient today _20___ minutes.
[2024-11-10] MEDS: clonazePAM 0.5 MG TABLET PO ×2 (14:37→20:33)
[2024-11-10 20:02] VITALS: BP 134/82; PULSE 96; RESP 18; TEMP 36.3; O2SAT 95
[2024-11-10] MEDS: Mirtazapine 30 MG TABLET PO (20:34)
[2024-11-10] MEDS: cloNIDine HCL 0.1 MG TABLET PO (20:34)
[2024-11-10] MEDS: Lithium Carbonate ER 450 MG TABLET.ER 900 MG PO (20:34)
[2024-11-10] MEDS: Doxepin HCl 25 MG CAPSULE PO (20:34)
[2024-11-10] MEDS: Prazosin HCL 1 MG CAPSULE 2 MG PO (20:34)
[2024-11-11] MEDS: Omeprazole 20 MG CAPSULE.DR PO (06:33)
[2024-11-11 07:20] VITALS: BP 92/54; PULSE 58; RESP 14; TEMP 36.9; O2SAT 94
[2024-11-11] MEDS: methADONE HCl 20 MG/2 ML ORAL.CONC 165 MG PO (08:12)
[2024-11-11] MEDS: clonazePAM 1 MG TABLET PO (08:16)
[2024-11-11] MEDS: chlorproMAZINE HCl 25 MG TABLET PO ×2 (08:16→20:39)
[2024-11-11] MEDS: Promethazine HCL 25 MG TABLET 12.5 MG PO ×2 (08:16→20:40)
[2024-11-11] MEDS: OLANZapine 5 MG TABLET PO ×3 (08:16→20:40)
[2024-11-11] MEDS: Nicotine 21 MG PATCH.TD24 TRANSDERMA (08:17)
[2024-11-11] MEDS: Venlafaxine HCl ER 37.5 MG CAP.ER.24H 112.5 MG PO (08:17)
[2024-11-11] MEDS: Nicotine Polacrilex 2 MG GUM 4 MG BUCCAL ×3 (08:18→20:39)
--- NOTE | 2024-11-11 09:21 | HO.PSYCHPN ---
Subjective Subjective Date of Service: 11/11/24 Reason For Visit: crisis Subjective Notes: Conditional Voluntary Interim History: Active on unit. attending groups. Patient reports feeling better ; pt stated, I feel like my anxiety is better with having the klonopin three times a day . showered. per nursing, slept 8 hours. denies SI/HI/VH/AH. Plan to discharge on Thursday if continues to improve; pt aware. Medication Compliance: Yes Side effects from medications: No Attending Groups: Yes Mental Status Exam Mental Status Exam Narrative: Pt is alert and oriented; behavior is cooperative and calm; dressed in casual attire; mood is described as better ; eye contact appropriate; Speech is normal rate, volume and not pressured; thought process is organized; Thought content is on tx; denies SI/HI/VH/AH. Diagnostics Vital Signs (24Hr): Vital Signs - 24 hr 11/10/24 20:02 11/11/24 07:20 Temperature 97.4 F 98.5 F Pulse Rate 96 58 Respiratory Rate 18 14 Blood Pressure 134/82 92/54 L Pulse Oximetry 95 94 Oxygen Delivery Method Room Air Room Air BMI result Body Mass Index 37.2 Labs 11/06/24 14:20 11/08/24 11:52 Medications Medications Current Medications Acetaminophen (Acetaminophen 325 Mg Tablet) 650 mg PO Q6H PRN PRN Reason: Headache/Pain, Scale 1-10 Al Hydroxide/Mg Hydroxide (Magnesium Hydrox/Alum Hydrox 30 Ml Oral.Susp) 30 ml PO Q6H PRN PRN Reason: Heartburn/Nausea Chlorpromazine HCl (Chlorpromazine Hcl 25 Mg Tablet) 25 mg PO BID PRN PRN Reason: nausea. severe anxiety Last Admin: 11/11/24 08:16 Dose: 25 mg Clonazepam (Clonazepam 1 Mg Tablet) 1 mg PO DAILY [facility] Last Admin: 11/11/24 08:16 Dose: 1 mg Clonazepam (Clonazepam 0.5 Mg Tablet) 0.5 mg PO BID@1500,2100 [facility] Last Admin: 11/10/24 20:33 Dose: 0.5 mg Clonidine HCl (Clonidine Hcl 0.1 Mg Tablet) 0.1 mg PO BEDTIME [facility]; Protocol Last Admin: 11/10/24 20:34 Dose: 0.1 mg Doxepin HCl (Doxepin Hcl 25 Mg Capsule) 25 mg PO BEDTIME [facility] Last Admin: 11/10/24 20:34 Dose: 25 mg Hydroxyzine HCl (Hydroxyzine Hcl 25 Mg Tablet) 25 mg PO Q6H PRN PRN Reason: mild anxiety [place] Carbonate ([place] Carbonate Er 450 Mg Tablet.Er) 900 mg PO BEDTIME [facility] Last Admin: 11/10/24 20:34 Dose: 900 mg Magnesium Hydroxide (Milk Of Magnesia 30 Ml Oral.Susp) 30 ml PO DAILY PRN PRN Reason: Constipation Methadone HCl (Methadone Hcl 20 Mg/2 Ml Oral.Conc) 165 mg PO DAILY@0800 [facility] Last Admin: 11/11/24 08:12 Dose: 165 mg Mirtazapine (Mirtazapine 30 Mg Tablet) 30 mg PO BEDTIME [facility] Last Admin: 11/10/24 20:34 Dose: 30 mg Nicotine (Nicotine 21 Mg Patch.Td24) 21 mg TRANSDERMA DAILY PRN PRN Reason: nicotine cravings Last Admin: 11/11/24 08:17 Dose: 21 mg Nicotine Polacrilex (Nicotine Polacrilex 2 Mg Gum) 4 mg BUCCAL Q2H PRN PRN Reason: nicotine cravings Last Admin: 11/11/24 08:18 Dose: 4 mg Olanzapine (Olanzapine 5 Mg Tablet) 5 mg PO TID PRN PRN Reason: mod to severe physical anxiety Last Admin: 11/11/24 08:16 Dose: 5 mg Omeprazole (Omeprazole 20 Mg Capsule.Dr) 20 mg PO DAILY@0630 [facility] Last Admin: 11/11/24 06:33 Dose: 20 mg Prazosin HCl (Prazosin Hcl 1 Mg Capsule) 2 mg PO BEDTIME [facility]; Protocol Last Admin: 11/10/24 20:34 Dose: 2 mg Promethazine HCl (Promethazine Hcl 25 Mg Tablet) 12.5 mg PO BID [facility] Last Admin: 11/11/24 08:16 Dose: 12.5 mg Trazodone HCl (Trazodone Hcl 50 Mg Tablet) 50 mg PO BEDTIME MRX1 PRN PRN Reason: Insomnia Venlafaxine HCl (Venlafaxine Hcl Er 37.5 Mg Cap.Er.24h) 112.5 mg PO DAILY [facility] Last Admin: 11/11/24 08:17 Dose: 112.5 mg Allergies Allergies Allergy/AdvReac Type Severity Reaction Status Date / Time No Known Allergies Allergy Verified 11/06/24 13:32 [No Known Allergies*] Assessment & Plan Assessment & Plan (1) MDD (major depressive disorder), recurrent severe, without psychosis: Status: Acute Code(s): F33.2 - Major depressive disorder, recurrent severe without psychotic features (2) Panic disorder: Status: Acute Code(s): F41.0 - Panic disorder [episodic paroxysmal anxiety] (3) PTSD (post-traumatic stress disorder): Status: Acute Code(s): F43.10 - Post-traumatic stress disorder, unspecified (4) Opioid use disorder, severe, on maintenance therapy: Status: Acute Code(s): F11.20 - Opioid dependence, uncomplicated (5) Cyclical vomiting: Status: Acute Code(s): R11.15 - Cyclical vomiting syndrome unrelated to migraine Plan Patient is a 24-year-old male with history of MDD, DELGADO, PTSD, opiate use disorder who self presented to [facility] due to suicidal ideation with a plan to overdose on substances secondary to increased depression, panic attacks and paranoia. Plan: CV 15 minute safety checks Obtain collateral Continue home medications Encourage groups Referral to [facility]? Discharge planning 11/08: Patient continues to report feeling anxious today; focused on increasing benzodiazepines. He reports not taking his medications daily as prescribed. [place] level 0.49 on 11/08/24. Pt educated regarding importance of medication compliance. Remeron increased to 30mg PO bedtime. He denies having nightmares last night. Denies vomiting yesterday and has not yet today. Pt reports he does not want to return to his friends apartment and would like to be discharged to a prison when ready. denies SI/HI/VH/AH. 11/09: Isolating in room. Patient continues to report feeling anxious; pt stated, it's nothing in particular that makes me anxious . Denies vomiting yesterday and today. Passive SI with no plan or intent. denies HI/VH/AH. per nursing, slept 7 hours. Continue current tx plan. 11/10: Patient continues to report feeling anxious and depressed; he is requesting his klonopin to be TID; dose changed to klonopin 1mg PO daily, and 0.5mg PO BID@15,00, 2100; pt aware. He reports feeling hopeful ; pt stated, when I'm in the hospital my stomach is fine. I'm trying to be hopeful. 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 I just get down on myself because of my anxiety . denies SI/HI/VH/AH. [place] level to be redrawn on 11/14/24. Pt reports he plans on showering today. 11/11: Active on unit. attending groups. Patient reports feeling better ; pt stated, I feel like my anxiety is better with having the klonopin three times a day . showered. per nursing, slept 8 hours. denies SI/HI/VH/AH. Plan to discharge on Thursday if continues to improve; pt aware. Patient educated on: diagnosis, medication risk/benefits and therapeutic strategies Reason for continued inpatient stay Substantial Risk for: med/psych decompensation Time Spent With Patient Time: Total time managing care of this patient today _20___ minutes.
[2024-11-11] MEDS: clonazePAM 0.5 MG TABLET PO ×2 (14:07→20:40)
[2024-11-11 20:28] VITALS: BP 127/81; PULSE 84; RESP 15; TEMP 36.9; O2SAT 97
[2024-11-11] MEDS: Prazosin HCL 1 MG CAPSULE 2 MG PO (20:38)
[2024-11-11] MEDS: Lithium Carbonate ER 450 MG TABLET.ER 900 MG PO (20:38)
[2024-11-11] MEDS: cloNIDine HCL 0.1 MG TABLET PO (20:39)
[2024-11-11] MEDS: Doxepin HCl 25 MG CAPSULE PO (20:39)
[2024-11-11] MEDS: Mirtazapine 30 MG TABLET PO (20:40)
[2024-11-11] MEDS: hydrOXYzine HCL 25 MG TABLET PO (22:41)
[2024-11-12] MEDS: Omeprazole 20 MG CAPSULE.DR PO (06:31)
[2024-11-12 07:25] VITALS: BP 93/50; PULSE 65; RESP 16; TEMP 36.4; O2SAT 95
--- NOTE | 2024-11-12 08:10 | P.PNPSI_ITS ---
Subjective Subjective Date of Service: 11/12/24 Reason For Visit: crisis Subjective Notes: Conditional Voluntary Healthcare Proxy: No Guardianship: No Medical Problems Affecting Mental Status: No Interim History: 24 yo asking for higher dose of thorazine which is compazine- did not ask for inc benzo - pt was appropriate with provider- reports sleep ok - dep/anxiety some no si - nursing reported isolated to self- but pt seen quite a bit in the main area by this provider between 11 and 1pm- Medication Compliance: Yes Side effects from medications: No Attending Groups: Intermittent Review of Systems Acute medical concerns: No Medical Review of Systems: unchanged Mental Status Exam Mental Status Exam Narrative: casually dressed , good eye contact, cooperative Patient Appearance: Appropriate Patient Orientation: Person, Place, Time and Situation Level of Consciousness: Awake and Alert Patient Behavior: Appropriate, Cooperative and Good Eye Contact Mood Description: Anxious Affect Description: Blunted Patient Cognition Impaired: No Ability to Follow Directions: Fair Speech Pattern: Clear Hallucinations: Auditory (?) Thought Process: Intact and Goal Oriented Depressive Symptoms: Increased Anxiety Abnormal Motor Activity Signs and Symptoms: Restlessness Judgement: Fair Diagnostics Vital Signs (24Hr): Vital Signs - 24 hr 11/11/24 20:28 Temperature 98.5 F Pulse Rate 84 Respiratory Rate 15 Blood Pressure 127/81 Pulse Oximetry 97 Oxygen Delivery Method Room Air BMI result Body Mass Index 37.2 Labs 11/06/24 14:20 11/08/24 11:52 Medications Medications Current Medications Acetaminophen (Acetaminophen 325 Mg Tablet) 650 mg PO Q6H PRN PRN Reason: Headache/Pain, Scale 1-10 Al Hydroxide/Mg Hydroxide (Magnesium Hydrox/Alum Hydrox 30 Ml Oral.Susp) 30 ml PO Q6H PRN PRN Reason: Heartburn/Nausea Chlorpromazine HCl (Chlorpromazine Hcl 25 Mg Tablet) 25 mg PO BID PRN PRN Reason: nausea. severe anxiety Last Admin: 11/11/24 20:39 Dose: 25 mg Clonazepam (Clonazepam 1 Mg Tablet) 1 mg PO DAILY COLIN Last Admin: 11/11/24 08:16 Dose: 1 mg Clonazepam (Clonazepam 0.5 Mg Tablet) 0.5 mg PO BID@1500,2100 [facility] Last Admin: 11/11/24 20:40 Dose: 0.5 mg Clonidine HCl (Clonidine Hcl 0.1 Mg Tablet) 0.1 mg PO BEDTIME [facility]IN; Protocol Last Admin: 11/11/24 20:39 Dose: 0.1 mg Doxepin HCl (Doxepin Hcl 25 Mg Capsule) 25 mg PO BEDTIME [facility] Last Admin: 11/11/24 20:39 Dose: 25 mg Hydroxyzine HCl (Hydroxyzine Hcl 25 Mg Tablet) 25 mg PO Q6H PRN PRN Reason: mild anxiety Last Admin: 11/11/24 22:41 Dose: 25 mg [place] Carbonate ([place] Carbonate Er 450 Mg Tablet.Er) 900 mg PO BEDTIME [facility] Last Admin: 11/11/24 20:38 Dose: 900 mg Magnesium Hydroxide (Milk Of Magnesia 30 Ml Oral.Susp) 30 ml PO DAILY PRN PRN Reason: Constipation Methadone HCl (Methadone Hcl 20 Mg/2 Ml Oral.Conc) 165 mg PO DAILY@0800 [facility] Last Admin: 11/11/24 08:12 Dose: 165 mg Mirtazapine (Mirtazapine 30 Mg Tablet) 30 mg PO BEDTIME [facility] Last Admin: 11/11/24 20:40 Dose: 30 mg Nicotine (Nicotine 21 Mg Patch.Td24) 21 mg TRANSDERMA DAILY PRN PRN Reason: nicotine cravings Last Admin: 11/11/24 08:17 Dose: 21 mg Nicotine Polacrilex (Nicotine Polacrilex 2 Mg Gum) 4 mg BUCCAL Q2H PRN PRN Reason: nicotine cravings Last Admin: 11/11/24 20:39 Dose: 4 mg Olanzapine (Olanzapine 5 Mg Tablet) 5 mg PO TID PRN PRN Reason: mod to severe physical anxiety Last Admin: 11/11/24 20:40 Dose: 5 mg Omeprazole (Omeprazole 20 Mg Capsule.Dr) 20 mg PO DAILY@0630 [facility] Last Admin: 11/12/24 06:31 Dose: 20 mg Prazosin HCl (Prazosin Hcl 1 Mg Capsule) 2 mg PO BEDTIME [facility]; Protocol Last Admin: 11/11/24 20:38 Dose: 2 mg Promethazine HCl (Promethazine Hcl 25 Mg Tablet) 12.5 mg PO BID [facility] Last Admin: 11/11/24 20:40 Dose: 12.5 mg Trazodone HCl (Trazodone Hcl 50 Mg Tablet) 50 mg PO BEDTIME MRX1 PRN PRN Reason: Insomnia Venlafaxine HCl (Venlafaxine Hcl Er 37.5 Mg Cap.Er.24h) 112.5 mg PO DAILY [facility] Last Admin: 11/11/24 08:17 Dose: 112.5 mg Allergies Allergies Allergy/AdvReac Type Severity Reaction Status Date / Time No Known Allergies Allergy Verified 11/06/24 13:32 [No Known Allergies*] Assessment & Plan Assessment & Plan (1) MDD (major depressive disorder), recurrent severe, without psychosis: Status: Acute Code(s): F33.2 - Major depressive disorder, recurrent severe without psychotic features (2) Panic disorder: Status: Acute Code(s): F41.0 - Panic disorder [episodic paroxysmal anxiety] (3) PTSD (post-traumatic stress disorder): Status: Acute Code(s): F43.10 - Post-traumatic stress disorder, unspecified (4) Opioid use disorder, severe, on maintenance therapy: Status: Acute Code(s): F11.20 - Opioid dependence, uncomplicated (5) Cyclical vomiting: Status: Acute Code(s): R11.15 - Cyclical vomiting syndrome unrelated to migraine Plan Patient is a 24-year-old male with history of MDD, DELGADO, PTSD, opiate use disorder who self [place] [facility] due to suicidal ideation with a plan to overdose on substances secondary to increased depression, panic attacks and paranoia. Plan: CV 15 minute safety checks Obtain collateral Continue home medications Encourage groups Referral to [facility]? Discharge planning 11/08: Patient continues to report feeling anxious today; focused on increasing benzodiazepines. He reports not taking his medications daily as prescribed. [place] level 0.49 on 11/08/24. Pt educated regarding importance of medication compliance. Remeron increased to 30mg PO bedtime. He denies having nightmares last night. Denies vomiting yesterday and has not yet today. Pt reports he does not want to return to his friends apartment and would like to be discharged to a alf when ready. denies SI/HI/VH/AH. 11/09: Isolating in room. Patient continues to report feeling anxious; pt stated, it's nothing in particular that makes me anxious . Denies vomiting yesterday and today. Passive SI with no plan or intent. denies HI/VH/AH. per nursing, slept 7 hours. Continue current tx plan. 11/10: Patient continues to report feeling anxious and depressed; he is requesting his klonopin to be TID; dose changed to klonopin 1mg PO daily, and 0.5mg PO BID@15,00, 2100; pt aware. He reports feeling hopeful ; pt stated, when I'm in the hospital my stomach is fine. I'm trying to be hopeful. 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 I just get down on myself because of my anxiety . denies SI/HI/VH/AH. [place] level to be redrawn on 11/14/24. Pt reports he plans on showering today. 11/11: Active on unit. attending groups. Patient reports feeling better ; pt stated, I feel like my anxiety is better with having the klonopin three times a day . showered. per nursing, slept 8 hours. denies SI/HI/VH/AH. Plan to discharge on Thursday if continues to improve; pt aware. 11/12 - requested inc compazine today- thought it was thorazine- will clarify with pt tomorrow promethazine or compazine- either doesn't seem warranted? Patient educated on: medication risk/benefits Informed Consent: further education needed Reason for continued inpatient stay Substantial Risk for: rapid decompensation Time Spent With Patient Time: Total time managing care of this patient today ____ minutes.
[2024-11-12 08:22] VITALS: BP 134/84; PULSE 100; RESP 16; O2SAT 97
[2024-11-12] MEDS: methADONE HCl 20 MG/2 ML ORAL.CONC 165 MG PO (08:22)
[2024-11-12] MEDS: chlorproMAZINE HCl 25 MG TABLET PO ×3 (08:25→20:06)
[2024-11-12] MEDS: Venlafaxine HCl ER 37.5 MG CAP.ER.24H 112.5 MG PO (08:25)
[2024-11-12] MEDS: clonazePAM 1 MG TABLET PO (08:25)
[2024-11-12] MEDS: Promethazine HCL 25 MG TABLET 12.5 MG PO ×2 (08:25→20:05)
[2024-11-12] MEDS: Nicotine Polacrilex 2 MG GUM 4 MG BUCCAL ×4 (08:26→22:41)
[2024-11-12] MEDS: Nicotine 21 MG PATCH.TD24 TRANSDERMA (08:26)
[2024-11-12] MEDS: OLANZapine 5 MG TABLET PO ×3 (08:42→20:03)
[2024-11-12] MEDS: clonazePAM 0.5 MG TABLET PO ×2 (15:34→20:04)
[2024-11-12 20:00] VITALS: BP 127/80; PULSE 71; RESP 18; TEMP 37.1; O2SAT 99
[2024-11-12] MEDS: Mirtazapine 30 MG TABLET PO (20:03)
[2024-11-12] MEDS: Prazosin HCL 1 MG CAPSULE 2 MG PO (20:03)
[2024-11-12] MEDS: Doxepin HCl 25 MG CAPSULE PO (20:03)
[2024-11-12] MEDS: cloNIDine HCL 0.1 MG TABLET PO (20:04)
[2024-11-12] MEDS: Lithium Carbonate ER 450 MG TABLET.ER 900 MG PO (20:04)
--- NOTE | 2024-11-13 | ECG_ITS ---
Test Reason : recheck qtc on higher meds Blood Pressure : */* mmHG Vent. Rate : 87 BPM Atrial Rate : 88 BPM P-R Int : 150 ms QRS Dur : 88 ms QT Int : 386 ms P-R-T Axes : 43 77 38 degrees QTcB Int : 464 ms Normal sinus rhythm Normal ECG When compared with ECG of 07-Nov-2024 11:03, Vent. rate has increased by 30 bpm Referred By: Kellie Sanchez Electronically Signed By: Roman Shaffer
[2024-11-13] MEDS: Omeprazole 20 MG CAPSULE.DR PO (06:42)
[2024-11-13 08:00] VITALS: BP 115/71; PULSE 68; RESP 14; TEMP 36.8; O2SAT 98
[2024-11-13] MEDS: methADONE HCl 20 MG/2 ML ORAL.CONC 165 MG PO (08:23)
[2024-11-13] MEDS: Venlafaxine HCl ER 37.5 MG CAP.ER.24H 112.5 MG PO (08:26)
[2024-11-13] MEDS: chlorproMAZINE HCl 25 MG TABLET PO ×3 (08:27→20:06)
[2024-11-13] MEDS: OLANZapine 5 MG TABLET PO ×3 (08:27→20:04)
[2024-11-13] MEDS: clonazePAM 1 MG TABLET PO (08:27)
[2024-11-13] MEDS: Promethazine HCL 25 MG TABLET 12.5 MG PO ×2 (08:28→20:07)
[2024-11-13] MEDS: Nicotine 21 MG PATCH.TD24 TRANSDERMA (08:29)
[2024-11-13] MEDS: Nicotine Polacrilex 2 MG GUM 4 MG BUCCAL ×5 (08:30→22:15)
--- NOTE | 2024-11-13 11:17 | P.PNPSI_ITS ---
Subjective Subjective Date of Service: 11/13/24 Reason For Visit: crisis Subjective Notes: Conditional Voluntary Healthcare Proxy: No Guardianship: No Medical Problems Affecting Mental Status: No Interim History: 24 yo hoping for other medication for anxiety x1 benzo - did get inc frequent tid- thorazine- told him we would need to do something else- pt anxious around dc and being homeless- also depressed around this Medication Compliance: Yes Side effects from medications: No Attending Groups: Yes Review of Systems Acute medical concerns: No Medical Review of Systems: unchanged Mental Status Exam Mental Status Exam Patient Appearance: Appropriate Patient Orientation: Person, Place, Time and Situation Level of Consciousness: Awake and Alert Patient Behavior: Appropriate, Passive and Poor Eye Contact Mood Description: Calm Affect Description: Constricted Patient Cognition Impaired: No Ability to Follow Directions: Good Speech Pattern: Clear Hallucinations: None Thought Process: Intact and Goal Oriented Thought Content: positive for Preoccupation (with anxiety ) Depressive Symptoms: Increased Anxiety Judgement: Fair Diagnostics Vital Signs (24Hr): Vital Signs - 24 hr 11/12/24 20:00 11/13/24 08:00 Temperature 98.7 F 98.2 F Pulse Rate 71 68 Respiratory Rate 18 14 Blood Pressure 127/80 115/71 Pulse Oximetry 99 98 Oxygen Delivery Method Room Air Room Air BMI result Body Mass Index 37.2 Labs 11/06/24 14:20 11/08/24 11:52 Medications Medications Current Medications Acetaminophen (Acetaminophen 325 Mg Tablet) 650 mg PO Q6H PRN PRN Reason: Headache/Pain, Scale 1-10 Al Hydroxide/Mg Hydroxide (Magnesium Hydrox/Alum Hydrox 30 Ml Oral.Susp) 30 ml PO Q6H PRN PRN Reason: Heartburn/Nausea Chlorpromazine HCl (Chlorpromazine Hcl 25 Mg Tablet) 25 mg PO TID PRN PRN Reason: nausea. severe anxiety Last Admin: 11/13/24 08:27 Dose: 25 mg Clonazepam (Clonazepam 1 Mg Tablet) 1 mg PO DAILY COLIN Last Admin: 11/13/24 08:27 Dose: 1 mg Clonazepam (Clonazepam 0.5 Mg Tablet) 0.5 mg PO BID@1500,2100 [facility] Last Admin: 11/12/24 20:04 Dose: 0.5 mg Clonidine HCl (Clonidine Hcl 0.1 Mg Tablet) 0.1 mg PO BEDTIME [facility]; Protocol Last Admin: 11/12/24 20:04 Dose: 0.1 mg Doxepin HCl (Doxepin Hcl 25 Mg Capsule) 25 mg PO BEDTIME [facility] Last Admin: 11/12/24 20:03 Dose: 25 mg Hydroxyzine HCl (Hydroxyzine Hcl 25 Mg Tablet) 25 mg PO Q6H PRN PRN Reason: mild anxiety Last Admin: 11/11/24 22:41 Dose: 25 mg [place] Carbonate ([place] Carbonate Er 450 Mg Tablet.Er) 900 mg PO BEDTIME [facility] Last Admin: 11/12/24 20:04 Dose: 900 mg Magnesium Hydroxide (Milk Of Magnesia 30 Ml Oral.Susp) 30 ml PO DAILY PRN PRN Reason: Constipation Methadone HCl (Methadone Hcl 20 Mg/2 Ml Oral.Conc) 165 mg PO DAILY@0800 [facility] Last Admin: 11/13/24 08:23 Dose: 165 mg Mirtazapine (Mirtazapine 30 Mg Tablet) 30 mg PO BEDTIME [facility] Last Admin: 11/12/24 20:03 Dose: 30 mg Nicotine (Nicotine 21 Mg Patch.Td24) 21 mg TRANSDERMA DAILY PRN PRN Reason: nicotine cravings Last Admin: 11/13/24 08:29 Dose: 21 mg Nicotine Polacrilex (Nicotine Polacrilex 2 Mg Gum) 4 mg BUCCAL Q2H PRN PRN Reason: nicotine cravings Last Admin: 11/13/24 10:27 Dose: 4 mg Olanzapine (Olanzapine 5 Mg Tablet) 5 mg PO TID PRN PRN Reason: mod to severe physical anxiety Last Admin: 11/13/24 08:27 Dose: 5 mg Omeprazole (Omeprazole 20 Mg Capsule.Dr) 20 mg PO DAILY@0630 [facility] Last Admin: 11/13/24 06:42 Dose: 20 mg Prazosin HCl (Prazosin Hcl 1 Mg Capsule) 2 mg PO BEDTIME [facility]; Protocol Last Admin: 11/12/24 20:03 Dose: 2 mg Promethazine HCl (Promethazine Hcl 25 Mg Tablet) 12.5 mg PO BID [facility] Last Admin: 11/13/24 08:28 Dose: 12.5 mg Trazodone HCl (Trazodone Hcl 50 Mg Tablet) 50 mg PO BEDTIME MRX1 PRN PRN Reason: Insomnia Venlafaxine HCl (Venlafaxine Hcl Er 37.5 Mg Cap.Er.24h) 112.5 mg PO DAILY [facility] Last Admin: 11/13/24 08:26 Dose: 112.5 mg Allergies Allergies Allergy/AdvReac Type Severity Reaction Status Date / Time No Known Allergies Allergy Verified 11/06/24 13:32 [No Known Allergies*] Assessment & Plan Assessment & Plan (1) MDD (major depressive disorder), recurrent severe, without psychosis: Status: Acute Code(s): F33.2 - Major depressive disorder, recurrent severe without psychotic features (2) Panic disorder: Status: Acute Code(s): F41.0 - Panic disorder [episodic paroxysmal anxiety] (3) PTSD (post-traumatic stress disorder): Status: Acute Code(s): F43.10 - Post-traumatic stress disorder, unspecified (4) Opioid use disorder, severe, on maintenance therapy: Status: Acute Code(s): F11.20 - Opioid dependence, uncomplicated (5) Cyclical vomiting: Status: Acute Code(s): R11.15 - Cyclical vomiting syndrome unrelated to migraine Plan Patient is a 24-year-old male with history of MDD, DELGADO, PTSD, opiate use disorder who self presented to [facility] [place] [facility] due to suicidal ideation with a plan to overdose on substances secondary to increased depression, panic attacks and paranoia. Plan: CV 15 minute safety checks Obtain collateral Continue home medications Encourage groups Referral to [facility]? Discharge planning 11/08: Patient continues to report feeling anxious today; focused on increasing benzodiazepines. He reports not taking his medications daily as prescribed. [place] level 0.49 on 11/08/24. Pt educated regarding importance of medication compliance. Remeron increased to 30mg PO bedtime. He denies having nightmares last night. Denies vomiting yesterday and has not yet today. Pt reports he does not want to return to his friends apartment and would like to be discharged to a senior care when ready. denies SI/HI/VH/AH. 11/09: Isolating in room. Patient continues to report feeling anxious; pt stated, it's nothing in particular that makes me anxious . Denies vomiting yesterday and today. Passive SI with no plan or intent. denies HI/VH/AH. per nursing, slept 7 hours. Continue current tx plan. 11/10: Patient continues to report feeling anxious and depressed; he is requesting his klonopin to be TID; dose changed to klonopin 1mg PO daily, and 0.5mg PO BID@15,00, 2100; pt aware. He reports feeling hopeful ; pt stated, when I'm in the hospital my stomach is fine. I'm trying to be hopeful. 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 I just get down on myself because of my anxiety . denies SI/HI/VH/AH. [place] level to be redrawn on 11/14/24. Pt reports he plans on showering today. 11/11: Active on unit. attending groups. Patient reports feeling better ; pt stated, I feel like my anxiety is better with having the klonopin three times a day . showered. per nursing, slept 8 hours. denies SI/HI/VH/AH. Plan to discharge on Thursday if continues to improve; pt aware. 11/12 - requested inc compazine today- thought it was thorazine- will clarify with pt tomorrow promethazine or compazine- either doesn't seem warranted? 11/13 apparently I did inc frequency of thorazine to tid from bid, and the other 2 are prn for nausea/gi around anxiety- however I again inc thorazine to qid today- only at 25mg- Patient educated on: medication risk/benefits Guardian/Caregiver educated on: medication risk/benefits and therapeutic strategies Informed Consent: further education needed Reason for continued inpatient stay Substantial Risk for: rapid decompensation Time Spent With Patient Time: Total time managing care of this patient today ____ minutes.
[2024-11-13] MEDS: clonazePAM 0.5 MG TABLET PO ×2 (15:40→20:07)
[2024-11-13 20:00] VITALS: BP 129/87; PULSE 84; RESP 18; TEMP 36.7; O2SAT 100
[2024-11-13 20:05] VITALS: BP 129/80
[2024-11-13] MEDS: Prazosin HCL 1 MG CAPSULE 2 MG PO (20:05)
[2024-11-13] MEDS: Mirtazapine 30 MG TABLET PO (20:05)
[2024-11-13 20:06] VITALS: BP 129/80
[2024-11-13] MEDS: cloNIDine HCL 0.1 MG TABLET PO (20:06)
[2024-11-13] MEDS: Lithium Carbonate ER 450 MG TABLET.ER 900 MG PO (20:07)
[2024-11-13] MEDS: Doxepin HCl 25 MG CAPSULE PO (20:07)
[2024-11-13] MEDS: hydrOXYzine HCL 50 MG TABLET PO (22:17)
[2024-11-14] MEDS: Omeprazole 20 MG CAPSULE.DR PO (06:26)
[2024-11-14 07:41] VITALS: BP 114/86; PULSE 68; RESP 16; TEMP 36.6; O2SAT 97
[2024-11-14] MEDS: methADONE HCl 20 MG/2 ML ORAL.CONC 165 MG PO (07:55)
[2024-11-14] MEDS: clonazePAM 1 MG TABLET PO (07:58)
[2024-11-14] MEDS: Venlafaxine HCl ER 37.5 MG CAP.ER.24H 112.5 MG PO (07:59)
[2024-11-14] MEDS: Promethazine HCL 25 MG TABLET 12.5 MG PO ×2 (07:59→20:06)
[2024-11-14] MEDS: Nicotine Polacrilex 2 MG GUM 4 MG BUCCAL ×4 (08:00→22:04)
[2024-11-14] MEDS: chlorproMAZINE HCl 25 MG TABLET PO ×3 (08:00→20:08)
[2024-11-14] MEDS: OLANZapine 5 MG TABLET PO ×3 (08:00→20:44)
[2024-11-14] MEDS: Nicotine 21 MG PATCH.TD24 TRANSDERMA (08:00)
--- NOTE | 2024-11-14 09:52 | HO.PSYCHPN ---
Subjective Subjective Date of Service: 11/14/24 Reason For Visit: crisis Subjective Notes: Conditional Voluntary Interim History: Active on unit, social with peers. attending groups. Patient reports feeling anxious d/t not wanting to go to a chcf . 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 Pt reports his parents will not allow him to stay at their homes. focused on discharge. declined labs despite education. denies SI/HI/VH/AH. Continue current tx plan. Medication Compliance: Yes Side effects from medications: No Attending Groups: Yes Mental Status Exam Mental Status Exam Narrative: Pt is alert and oriented; behavior is cooperative and calm; dressed in casual attire; mood is described as anxious ; eye contact appropriate; Speech is normal rate, volume and not pressured; thought process is organized; Thought content is on discharge; denies SI/HI/VH/AH. Diagnostics Vital Signs (24Hr): Vital Signs - 24 hr 11/13/24 20:00 11/13/24 20:05 11/13/24 20:06 Temperature 98.1 F Pulse Rate 84 Respiratory Rate 18 Blood Pressure 129/87 129/80 129/80 Pulse Oximetry 100 Oxygen Delivery Method Room Air 11/14/24 07:41 Temperature 97.9 F Pulse Rate 68 Respiratory Rate 16 Blood Pressure 114/86 Pulse Oximetry 97 Oxygen Delivery Method Room Air BMI result Body Mass Index 37.2 Labs 11/06/24 14:20 11/08/24 11:52 Medications Medications Current Medications Acetaminophen (Acetaminophen 325 Mg Tablet) 650 mg PO Q6H PRN PRN Reason: Headache/Pain, Scale 1-10 Al Hydroxide/Mg Hydroxide (Magnesium Hydrox/Alum Hydrox 30 Ml Oral.Susp) 30 ml PO Q6H PRN PRN Reason: Heartburn/Nausea Chlorpromazine HCl (Chlorpromazine Hcl 25 Mg Tablet) 25 mg PO QID PRN PRN Reason: nausea. severe anxiety Last Admin: 11/14/24 08:00 Dose: 25 mg Clonazepam (Clonazepam 1 Mg Tablet) 1 mg PO DAILY [facility] Last Admin: 11/14/24 07:58 Dose: 1 mg Clonazepam (Clonazepam 0.5 Mg Tablet) 0.5 mg PO BID@1500,2100 [facility] Last Admin: 11/13/24 20:07 Dose: 0.5 mg Clonidine HCl (Clonidine Hcl 0.1 Mg Tablet) 0.1 mg PO BEDTIME [facility]; Protocol Last Admin: 11/13/24 20:06 Dose: 0.1 mg Doxepin HCl (Doxepin Hcl 25 Mg Capsule) 25 mg PO BEDTIME [facility] Last Admin: 11/13/24 20:07 Dose: 25 mg Hydroxyzine HCl (Hydroxyzine Hcl 50 Mg Tablet) 50 mg PO Q6H PRN PRN Reason: mild anxiety Last Admin: 11/13/24 22:17 Dose: 50 mg [place] Carbonate ([place] Carbonate Er 450 Mg Tablet.Er) 900 mg PO BEDTIME [facility] Last Admin: 11/13/24 20:07 Dose: 900 mg Magnesium Hydroxide (Milk Of Magnesia 30 Ml Oral.Susp) 30 ml PO DAILY PRN PRN Reason: Constipation Methadone HCl (Methadone Hcl 20 Mg/2 Ml Oral.Conc) 165 mg PO DAILY@0800 [facility] Last Admin: 11/14/24 07:55 Dose: 165 mg Mirtazapine (Mirtazapine 30 Mg Tablet) 30 mg PO BEDTIME [facility] Last Admin: 11/13/24 20:05 Dose: 30 mg Nicotine (Nicotine 21 Mg Patch.Td24) 21 mg TRANSDERMA DAILY PRN PRN Reason: nicotine cravings Last Admin: 11/14/24 08:00 Dose: 21 mg Nicotine Polacrilex (Nicotine Polacrilex 2 Mg Gum) 4 mg BUCCAL Q2H PRN PRN Reason: nicotine cravings Last Admin: 11/14/24 08:00 Dose: 4 mg Olanzapine (Olanzapine 5 Mg Tablet) 5 mg PO TID PRN PRN Reason: mod to severe physical anxiety Last Admin: 11/14/24 08:00 Dose: 5 mg Omeprazole (Omeprazole 20 Mg Capsule.Dr) 20 mg PO DAILY@0630 [facility] Last Admin: 11/14/24 06:26 Dose: 20 mg Prazosin HCl (Prazosin Hcl 1 Mg Capsule) 2 mg PO BEDTIME [facility]; Protocol Last Admin: 11/13/24 20:05 Dose: 2 mg Promethazine HCl (Promethazine Hcl 25 Mg Tablet) 12.5 mg PO BID [facility] Last Admin: 11/14/24 07:59 Dose: 12.5 mg Trazodone HCl (Trazodone Hcl 50 Mg Tablet) 50 mg PO BEDTIME MRX1 PRN PRN Reason: Insomnia Venlafaxine HCl (Venlafaxine Hcl Er 37.5 Mg Cap.Er.24h) 112.5 mg PO DAILY [facility] Last Admin: 11/14/24 07:59 Dose: 112.5 mg Allergies Allergies Allergy/AdvReac Type Severity Reaction Status Date / Time No Known Allergies Allergy Verified 11/06/24 13:32 [No Known Allergies*] Assessment & Plan Assessment & Plan (1) MDD (major depressive disorder), recurrent severe, without psychosis: Status: Acute Code(s): F33.2 - Major depressive disorder, recurrent severe without psychotic features (2) Panic disorder: Status: Acute Code(s): F41.0 - Panic disorder [episodic paroxysmal anxiety] (3) PTSD (post-traumatic stress disorder): Status: Acute Code(s): F43.10 - Post-traumatic stress disorder, unspecified (4) Opioid use disorder, severe, on maintenance therapy: Status: Acute Code(s): F11.20 - Opioid dependence, uncomplicated (5) Cyclical vomiting: Status: Acute Code(s): R11.15 - Cyclical vomiting syndrome unrelated to migraine Plan Patient is a 24-year-old male with history of MDD, DELGADO, PTSD, opiate use disorder who self presented to [place] [facility] due to suicidal ideation with a plan to overdose on substances secondary to increased depression, panic attacks and paranoia. Plan: CV 15 minute safety checks Obtain collateral Continue home medications Encourage groups Referral to [facility] Discharge planning 11/08: Patient continues to report feeling anxious today; focused on increasing benzodiazepines. He reports not taking his medications daily as prescribed. [place] level 0.49 on 11/08/24. Pt educated regarding importance of medication compliance. Remeron increased to 30mg PO bedtime. He denies having nightmares last night. Denies vomiting yesterday and has not yet today. Pt reports he does not want to return to his friends apartment and would like to be discharged to a chcf when ready. denies SI/HI/VH/AH. 11/09: Isolating in room. Patient continues to report feeling anxious; pt stated, it's nothing in particular that makes me anxious . Denies vomiting yesterday and today. Passive SI with no plan or intent. denies HI/VH/AH. per nursing, slept 7 hours. Continue current tx plan. 11/10: Patient continues to report feeling anxious and depressed; he is requesting his klonopin to be TID; dose changed to klonopin 1mg PO daily, and 0.5mg PO BID@15,00, 2100; pt aware. He reports feeling hopeful ; pt stated, when I'm in the hospital my stomach is fine. I'm trying to be hopeful. 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 I just get down on myself because of my anxiety . denies SI/HI/VH/AH. [place] level to be redrawn on 11/14/24. Pt reports he plans on showering today. 11/11: Active on unit. attending groups. Patient reports feeling better ; pt stated, I feel like my anxiety is better with having the klonopin three times a day . showered. per nursing, slept 8 hours. denies SI/HI/VH/AH. Plan to discharge on Thursday if continues to improve; pt aware. 11/12 - requested inc compazine today- thought it was thorazine- will clarify with pt tomorrow promethazine or compazine- either doesn't seem warranted? 11/13 apparently I did inc frequency of thorazine to tid from bid, and the other 2 are prn for nausea/gi around anxiety- however I again inc thorazine to qid today- only at 25mg- 11/14: Active on unit, social with peers. attending groups. Patient reports feeling anxious d/t not wanting to go to a chcf . 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 Pt reports his parents will not allow him to stay at their homes. focused on discharge. declined labs despite education. denies SI/HI/VH/AH. Continue current tx plan. Patient educated on: diagnosis, medication risk/benefits and therapeutic strategies Reason for continued inpatient stay Substantial Risk for: med/psych decompensation Time Spent With Patient Time: Total time managing care of this patient today _20___ minutes.
[2024-11-14] MEDS: clonazePAM 0.5 MG TABLET PO ×2 (15:36→20:08)
[2024-11-14 16:06] LABS: Anion Gap 12 (12-20); Blood Urea Nitrogen 11 mg/dL (9-16); Carbon Dioxide 28 mmol/L (22-29); Chloride 108 mmol/L (96-108); Creatinine Clr Calc Pharmacy 156.9; Estimated Glomerular Filt Rate > 60; Potassium 4.3 mmol/L (3.3-5.1); Sodium 144 mmol/L (135-145)
[2024-11-14 16:15] LABS: Lithium 0.44 mmol/L (0.60-1.20)
[2024-11-14 19:40] VITALS: BP 134/90; PULSE 84; TEMP 36.5; O2SAT 98
[2024-11-14] MEDS: Lithium Carbonate ER 450 MG TABLET.ER 900 MG PO (20:08)
[2024-11-14] MEDS: Prazosin HCL 1 MG CAPSULE 2 MG PO (20:08)
[2024-11-14] MEDS: Doxepin HCl 25 MG CAPSULE PO (20:08)
[2024-11-14] MEDS: Mirtazapine 30 MG TABLET PO (20:08)
[2024-11-14] MEDS: cloNIDine HCL 0.1 MG TABLET PO (20:08)
[2024-11-14] MEDS: hydrOXYzine HCL 50 MG TABLET PO (22:04)
[2024-11-15] MEDS: Omeprazole 20 MG CAPSULE.DR PO (06:05)
[2024-11-15 07:30] VITALS: BP 109/63; PULSE 85; RESP 16; TEMP 36.7; O2SAT 98
[2024-11-15] MEDS: methADONE HCl 20 MG/2 ML ORAL.CONC 165 MG PO (08:13)
[2024-11-15] MEDS: Venlafaxine HCl ER 37.5 MG CAP.ER.24H 112.5 MG PO (08:19)
[2024-11-15] MEDS: OLANZapine 5 MG TABLET PO ×3 (08:19→20:53)
[2024-11-15] MEDS: chlorproMAZINE HCl 25 MG TABLET PO ×3 (08:20→20:53)
[2024-11-15] MEDS: clonazePAM 1 MG TABLET PO (08:20)
[2024-11-15] MEDS: Promethazine HCL 25 MG TABLET 12.5 MG PO ×2 (08:20→20:54)
[2024-11-15] MEDS: Nicotine 21 MG PATCH.TD24 TRANSDERMA (08:21)
[2024-11-15] MEDS: Nicotine Polacrilex 2 MG GUM 4 MG BUCCAL ×6 (08:21→23:07)
--- NOTE | 2024-11-15 08:55 | P.PNPSI_ITS ---
Subjective Subjective Date of Service: 11/15/24 Reason For Visit: crisis Subjective Notes: Conditional Voluntary Interim History: Patient continues to reports feeling anxious and depressed ; lithium level 0.44 on 11/14/24. [place] dose increased to 1,200mg PO bedtime; pt aware. denies SI/HI/VH/AH. Continue current tx plan. Medication Compliance: Yes Side effects from medications: No Attending Groups: Yes Mental Status Exam Mental Status Exam Narrative: Pt is alert and oriented; behavior is cooperative and calm; dressed in casual attire; mood is described as anxious and depressed ; eye contact appropriate; Speech is normal rate, volume and not pressured; thought process is organized; Thought content is on tx/discharge; denies SI/HI/VH/AH. Diagnostics Vital Signs (24Hr): Vital Signs - 24 hr 11/14/24 19:40 11/15/24 07:30 Temperature 97.7 F 98.1 F Pulse Rate 84 85 Respiratory Rate 16 Blood Pressure 134/90 H 109/63 Pulse Oximetry 98 98 Oxygen Delivery Method Room Air Room Air BMI result Body Mass Index 37.2 Labs 11/06/24 14:20 11/14/24 15:35 Labs: Laboratory Results - last 48 hr 11/14/24 15:35 Sodium 144 Potassium 4.3 Chloride 108 Carbon Dioxide 28 Anion Gap 12 BUN 11 Creatinine 1.00 Estim Creat Clear Calc 156.9 Estimated GFR > 60 [place] 0.44 L Medications Medications Current Medications Acetaminophen (Acetaminophen 325 Mg Tablet) 650 mg PO Q6H PRN PRN Reason: Headache/Pain, Scale 1-10 Al Hydroxide/Mg Hydroxide (Magnesium Hydrox/Alum Hydrox 30 Ml Oral.Susp) 30 ml PO Q6H PRN PRN Reason: Heartburn/Nausea Chlorpromazine HCl (Chlorpromazine Hcl 25 Mg Tablet) 25 mg PO QID PRN PRN Reason: nausea. severe anxiety Last Admin: 11/15/24 08:20 Dose: 25 mg Clonazepam (Clonazepam 1 Mg Tablet) 1 mg PO DAILY COLIN Last Admin: 11/15/24 08:20 Dose: 1 mg Clonazepam (Clonazepam 0.5 Mg Tablet) 0.5 mg PO BID@1500,2100 COLIN Last Admin: 11/14/24 20:08 Dose: 0.5 mg Clonidine HCl (Clonidine Hcl 0.1 Mg Tablet) 0.1 mg PO BEDTIME COLIN; Protocol Last Admin: 11/14/24 20:08 Dose: 0.1 mg Doxepin HCl (Doxepin Hcl 25 Mg Capsule) 25 mg PO BEDTIME COLIN Last Admin: 11/14/24 20:08 Dose: 25 mg Hydroxyzine HCl (Hydroxyzine Hcl 50 Mg Tablet) 50 mg PO Q6H PRN PRN Reason: mild anxiety Last Admin: 11/14/24 22:04 Dose: 50 mg [place] Carbonate ([place] Carbonate Er 450 Mg Tablet.Er) 900 mg PO BEDTIME COLIN Last Admin: 11/14/24 20:08 Dose: 900 mg Magnesium Hydroxide (Milk Of Magnesia 30 Ml Oral.Susp) 30 ml PO DAILY PRN PRN Reason: Constipation Methadone HCl (Methadone Hcl 20 Mg/2 Ml Oral.Conc) 165 mg PO DAILY@0800 [facility] Last Admin: 11/15/24 08:13 Dose: 165 mg Mirtazapine (Mirtazapine 30 Mg Tablet) 30 mg PO BEDTIME COLIN Last Admin: 11/14/24 20:08 Dose: 30 mg Nicotine (Nicotine 21 Mg Patch.Td24) 21 mg TRANSDERMA DAILY PRN PRN Reason: nicotine cravings Last Admin: 11/15/24 08:21 Dose: 21 mg Nicotine Polacrilex (Nicotine Polacrilex 2 Mg Gum) 4 mg BUCCAL Q2H PRN PRN Reason: nicotine cravings Last Admin: 11/15/24 08:21 Dose: 4 mg Olanzapine (Olanzapine 5 Mg Tablet) 5 mg PO Q4H PRN PRN Reason: agitation/anxiety Last Admin: 11/15/24 08:19 Dose: 5 mg Omeprazole (Omeprazole 20 Mg Capsule.Dr) 20 mg PO DAILY@0630 [facility] Last Admin: 11/15/24 06:05 Dose: 20 mg Prazosin HCl (Prazosin Hcl 1 Mg Capsule) 2 mg PO BEDTIME COLIN; Protocol Last Admin: 11/14/24 20:08 Dose: 2 mg Promethazine HCl (Promethazine Hcl 25 Mg Tablet) 12.5 mg PO BID [facility] Last Admin: 11/15/24 08:20 Dose: 12.5 mg Trazodone HCl (Trazodone Hcl 50 Mg Tablet) 50 mg PO BEDTIME MRX1 PRN PRN Reason: Insomnia Venlafaxine HCl (Venlafaxine Hcl Er 37.5 Mg Cap.Er.24h) 112.5 mg PO DAILY COLIN Last Admin: 11/15/24 08:19 Dose: 112.5 mg Allergies Allergies Allergy/AdvReac Type Severity Reaction Status Date / Time No Known Allergies Allergy Verified 11/06/24 13:32 [No Known Allergies*] Assessment & Plan Assessment & Plan (1) MDD (major depressive disorder), recurrent severe, without psychosis: Status: Acute Code(s): F33.2 - Major depressive disorder, recurrent severe without psychotic features (2) Panic disorder: Status: Acute Code(s): F41.0 - Panic disorder [episodic paroxysmal anxiety] (3) PTSD (post-traumatic stress disorder): Status: Acute Code(s): F43.10 - Post-traumatic stress disorder, unspecified (4) Opioid use disorder, severe, on maintenance therapy: Status: Acute Code(s): F11.20 - Opioid dependence, uncomplicated (5) Cyclical vomiting: Status: Acute Code(s): R11.15 - Cyclical vomiting syndrome unrelated to migraine Plan Patient is a 24-year-old male with history of MDD, DELGADO, PTSD, opiate use disorder who self presented to [facility] due to suicidal ideation with a plan to overdose on substances secondary to increased depression, panic attacks and paranoia. Plan: CV 15 minute safety checks Obtain collateral Continue home medications Encourage groups Referral to [facility]? Discharge planning 11/08: Patient continues to report feeling anxious today; focused on increasing benzodiazepines. He reports not taking his medications daily as prescribed. [place] level 0.49 on 11/08/24. Pt educated regarding importance of medication compliance. Remeron increased to 30mg PO bedtime. He denies having nightmares last night. Denies vomiting yesterday and has not yet today. Pt reports he does not want to return to his friends apartment and would like to be discharged to a group home when ready. denies SI/HI/VH/AH. 11/09: Isolating in room. Patient continues to report feeling anxious; pt stated, it's nothing in particular that makes me anxious . Denies vomiting yesterday and today. Passive SI with no plan or intent. denies HI/VH/AH. per nursing, slept 7 hours. Continue current tx plan. 11/10: Patient continues to report feeling anxious and depressed; he is requesting his klonopin to be TID; dose changed to klonopin 1mg PO daily, and 0.5mg PO BID@15,00, 2100; pt aware. He reports feeling hopeful ; pt stated, when I'm in the hospital my stomach is fine. I'm trying to be hopeful. 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 I just get down on myself because of my anxiety . denies SI/HI/VH/AH. [place] level to be redrawn on 11/14/24. Pt reports he plans on showering today. 11/11: Active on unit. attending groups. Patient reports feeling better ; pt stated, I feel like my anxiety is better with having the klonopin three times a day . showered. per nursing, slept 8 hours. denies SI/HI/VH/AH. Plan to discharge on Thursday if continues to improve; pt aware. 11/12 - requested inc compazine today- thought it was thorazine- will clarify with pt tomorrow promethazine or compazine- either doesn't seem warranted? 11/13 apparently I did inc frequency of thorazine to tid from bid, and the other 2 are prn for nausea/gi around anxiety- however I again inc thorazine to qid today- only at 25mg- 11/14: Active on unit, social with peers. attending groups. Patient reports feeling anxious d/t not wanting to go to a group home . 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 Pt reports his parents will not allow him to stay at their homes. focused on discharge. declined labs despite education. denies SI/HI/VH/AH. Continue current tx plan. 11/15: Patient continues to reports feeling anxious and depressed ; lithium level 0.44 on 11/14/24. [place] dose increased to 1,200mg PO bedtime; pt aware. denies SI/HI/VH/AH. Continue current tx plan. Patient educated on: diagnosis, medication risk/benefits and therapeutic strategies Reason for continued inpatient stay Substantial Risk for: med/psych decompensation Time Spent With Patient Time: Total time managing care of this patient today _20___ minutes.
[2024-11-15] MEDS: clonazePAM 0.5 MG TABLET PO ×2 (15:30→20:55)
[2024-11-15 20:00] VITALS: BP 143/86; PULSE 87; TEMP 37.1; O2SAT 98
[2024-11-15 20:54] VITALS: BP 143/86
[2024-11-15] MEDS: Doxepin HCl 25 MG CAPSULE PO (20:54)
[2024-11-15] MEDS: cloNIDine HCL 0.1 MG TABLET PO (20:54)
[2024-11-15] MEDS: Prazosin HCL 1 MG CAPSULE 2 MG PO (20:54)
[2024-11-15] MEDS: Mirtazapine 30 MG TABLET PO (20:54)
[2024-11-15] MEDS: Lithium Carbonate ER 300 MG TABLET.ER 1200 MG PO (20:54)
[2024-11-15] MEDS: hydrOXYzine HCL 50 MG TABLET PO (23:34)
[2024-11-16] MEDS: Omeprazole 20 MG CAPSULE.DR PO (06:30)
[2024-11-16 08:00] VITALS: BP 118/79; PULSE 98; RESP 16; TEMP 36.3; O2SAT 99
[2024-11-16] MEDS: methADONE HCl 20 MG/2 ML ORAL.CONC 165 MG PO (08:01)
[2024-11-16] MEDS: Venlafaxine HCl ER 37.5 MG CAP.ER.24H 112.5 MG PO (08:04)
[2024-11-16] MEDS: OLANZapine 5 MG TABLET PO ×3 (08:05→20:20)
[2024-11-16] MEDS: Promethazine HCL 25 MG TABLET 12.5 MG PO ×2 (08:05→20:19)
[2024-11-16] MEDS: clonazePAM 1 MG TABLET PO (08:06)
[2024-11-16] MEDS: chlorproMAZINE HCl 25 MG TABLET PO ×3 (08:06→20:18)
[2024-11-16] MEDS: Nicotine Polacrilex 2 MG GUM 4 MG BUCCAL ×5 (08:06→22:04)
[2024-11-16] MEDS: Nicotine 21 MG PATCH.TD24 TRANSDERMA (08:07)
--- NOTE | 2024-11-16 09:22 | P.PNPSI_ITS ---
Subjective Subjective Date of Service: 11/16/24 Reason For Visit: crisis Subjective Notes: Conditional Voluntary Interim History: Active on unit, social with peers. attending groups. Pt reports feeling a little better today; pt reports he plans on applying to go to the [facility] in [place], [place] or going to the correction in [place] when discharged. denies SI/HI/VH/AH. Continue current tx plan. Medication Compliance: Yes Side effects from medications: No Attending Groups: Yes Mental Status Exam Mental Status Exam Narrative: Pt is alert and oriented; behavior is cooperative and calm; dressed in casual attire; mood is described as a little better ; eye contact appropriate; Speech is normal rate, volume and not pressured; thought process is organized; Thought content is on tx/discharge; denies SI/HI/VH/AH. Diagnostics Vital Signs (24Hr): Vital Signs - 24 hr 11/15/24 20:00 11/15/24 20:54 11/15/24 20:54 Temperature 98.7 F Pulse Rate 87 Respiratory Rate Blood Pressure 143/86 H 143/86 H 143/86 H Pulse Oximetry 98 Oxygen Delivery Method Room Air 11/16/24 08:00 Temperature 97.3 F Pulse Rate 98 Respiratory Rate 16 Blood Pressure 118/79 Pulse Oximetry 99 Oxygen Delivery Method Room Air BMI result Body Mass Index 37.2 Labs 11/06/24 14:20 11/14/24 15:35 Labs: Laboratory Results - last 48 hr 11/14/24 15:35 Sodium 144 Potassium 4.3 Chloride 108 Carbon Dioxide 28 Anion Gap 12 BUN 11 Creatinine 1.00 Estim Creat Clear Calc 156.9 Estimated GFR > 60 [place] 0.44 L Medications Medications Current Medications Acetaminophen (Acetaminophen 325 Mg Tablet) 650 mg PO Q6H PRN PRN Reason: Headache/Pain, Scale 1-10 Al Hydroxide/Mg Hydroxide (Magnesium Hydrox/Alum Hydrox 30 Ml Oral.Susp) 30 ml PO Q6H PRN PRN Reason: Heartburn/Nausea Chlorpromazine HCl (Chlorpromazine Hcl 25 Mg Tablet) 25 mg PO QID PRN PRN Reason: nausea. severe anxiety Last Admin: 11/16/24 08:06 Dose: 25 mg Clonazepam (Clonazepam 1 Mg Tablet) 1 mg PO DAILY COLIN Last Admin: 11/16/24 08:06 Dose: 1 mg Clonazepam (Clonazepam 0.5 Mg Tablet) 0.5 mg PO BID@1500,2100 [facility] Last Admin: 11/15/24 20:55 Dose: 0.5 mg Clonidine HCl (Clonidine Hcl 0.1 Mg Tablet) 0.1 mg PO BEDTIME COLIN; Protocol Last Admin: 11/15/24 20:54 Dose: 0.1 mg Doxepin HCl (Doxepin Hcl 25 Mg Capsule) 25 mg PO BEDTIME COLIN Last Admin: 11/15/24 20:54 Dose: 25 mg Hydroxyzine HCl (Hydroxyzine Hcl 50 Mg Tablet) 50 mg PO Q6H PRN PRN Reason: mild anxiety Last Admin: 11/15/24 23:34 Dose: 50 mg [place] Carbonate ([place] Carbonate Er 300 Mg Tablet.Er) 1,200 mg PO BEDTIME [facility] Last Admin: 11/15/24 20:54 Dose: 1,200 mg Magnesium Hydroxide (Milk Of Magnesia 30 Ml Oral.Susp) 30 ml PO DAILY PRN PRN Reason: Constipation Methadone HCl (Methadone Hcl 20 Mg/2 Ml Oral.Conc) 165 mg PO DAILY@0800 [facility] Last Admin: 11/16/24 08:01 Dose: 165 mg Mirtazapine (Mirtazapine 30 Mg Tablet) 30 mg PO BEDTIME [facility] Last Admin: 11/15/24 20:54 Dose: 30 mg Nicotine (Nicotine 21 Mg Patch.Td24) 21 mg TRANSDERMA DAILY PRN PRN Reason: nicotine cravings Last Admin: 11/16/24 08:07 Dose: 21 mg Nicotine Polacrilex (Nicotine Polacrilex 2 Mg Gum) 4 mg BUCCAL Q2H PRN PRN Reason: nicotine cravings Last Admin: 11/16/24 08:06 Dose: 4 mg Olanzapine (Olanzapine 5 Mg Tablet) 5 mg PO Q4H PRN PRN Reason: agitation/anxiety Last Admin: 11/16/24 08:05 Dose: 5 mg Omeprazole (Omeprazole 20 Mg Capsule.Dr) 20 mg PO DAILY@0630 [facility] Last Admin: 11/16/24 06:30 Dose: 20 mg Prazosin HCl (Prazosin Hcl 1 Mg Capsule) 2 mg PO BEDTIME [facility]; Protocol Last Admin: 11/15/24 20:54 Dose: 2 mg Promethazine HCl (Promethazine Hcl 25 Mg Tablet) 12.5 mg PO BID [facility] Last Admin: 11/16/24 08:05 Dose: 12.5 mg Trazodone HCl (Trazodone Hcl 50 Mg Tablet) 50 mg PO BEDTIME MRX1 PRN PRN Reason: Insomnia Venlafaxine HCl (Venlafaxine Hcl Er 37.5 Mg Cap.Er.24h) 112.5 mg PO DAILY [facility] Last Admin: 11/16/24 08:04 Dose: 112.5 mg Allergies Allergies Allergy/AdvReac Type Severity Reaction Status Date / Time No Known Allergies (No Known Allergy Verified 11/06/24 13:32 Allergies*) Assessment & Plan Assessment & Plan (1) MDD (major depressive disorder), recurrent severe, without psychosis: Status: Acute Code(s): F33.2 - Major depressive disorder, recurrent severe without psychotic features (2) Panic disorder: Status: Acute Code(s): F41.0 - Panic disorder [episodic paroxysmal anxiety] (3) PTSD (post-traumatic stress disorder): Status: Acute Code(s): F43.10 - Post-traumatic stress disorder, unspecified (4) Opioid use disorder, severe, on maintenance therapy: Status: Acute Code(s): F11.20 - Opioid dependence, uncomplicated (5) Cyclical vomiting: Status: Acute Code(s): R11.15 - Cyclical vomiting syndrome unrelated to migraine Plan Patient is a 24-year-old male with history of MDD, DELGADO, PTSD, opiate use disorder who self presented to [facility] due to suicidal ideation with a plan to overdose on substances secondary to increased depression, panic attacks and paranoia. Plan: CV 15 minute safety checks Obtain collateral Continue home medications Encourage groups Referral to [facility]? Discharge planning 11/08: Patient continues to report feeling anxious today; focused on increasing benzodiazepines. He reports not taking his medications daily as prescribed. [place] level 0.49 on 11/08/24. Pt educated regarding importance of medication compliance. Remeron increased to 30mg PO bedtime. He denies having nightmares last night. Denies vomiting yesterday and has not yet today. Pt reports he does not want to return to his friends apartment and would like to be discharged to a correction when ready. denies SI/HI/VH/AH. 11/09: Isolating in room. Patient continues to report feeling anxious; pt stated, it's nothing in particular that makes me anxious . Denies vomiting yesterday and today. Passive SI with no plan or intent. denies HI/VH/AH. per nursing, slept 7 hours. Continue current tx plan. 11/10: Patient continues to report feeling anxious and depressed; he is requesting his klonopin to be TID; dose changed to klonopin 1mg PO daily, and 0.5mg PO BID@15,00, 2100; pt aware. He reports feeling hopeful ; pt stated, when I'm in the hospital my stomach is fine. I'm trying to be hopeful. 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 I just get down on myself because of my anxiety . denies SI/HI/VH/AH. [place] level to be redrawn on 11/14/24. Pt reports he plans on showering today. 11/11: Active on unit. attending groups. Patient reports feeling better ; pt stated, I feel like my anxiety is better with having the klonopin three times a day . showered. per nursing, slept 8 hours. denies SI/HI/VH/AH. Plan to discharge on Thursday if continues to improve; pt aware. 11/12 - requested inc compazine today- thought it was thorazine- will clarify with pt tomorrow promethazine or compazine- either doesn't seem warranted? 11/13 apparently I did inc frequency of thorazine to tid from bid, and the other 2 are prn for nausea/gi around anxiety- however I again inc thorazine to qid today- only at 25mg- 11/14: Active on unit, social with peers. attending groups. Patient reports feeling anxious d/t not wanting to go to a correction . 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 Pt reports his parents will not allow him to stay at their homes. focused on discharge. declined labs despite education. denies SI/HI/VH/AH. Continue current tx plan. 11/15: Patient continues to reports feeling anxious and depressed ; lithium level 0.44 on 11/14/24. [place] dose increased to 1,200mg PO bedtime; pt aware. denies SI/HI/VH/AH. Continue current tx plan. 11/16: Active on unit, social with peers. attending groups. Pt reports feeling a little better today; pt reports he plans on [facility] or going to the correction in [place] when discharged. denies SI/HI/VH/AH. Continue current tx plan. Patient educated on: diagnosis, medication risk/benefits and therapeutic strategies Reason for continued inpatient stay Substantial Risk for: med/psych decompensation Time Spent With Patient Time: Total time managing care of this patient today _20___ minutes.
[2024-11-16] MEDS: clonazePAM 0.5 MG TABLET PO ×2 (14:43→20:20)
[2024-11-16 20:00] VITALS: BP 129/59; PULSE 84; RESP 16; TEMP 36.9; O2SAT 99
[2024-11-16] MEDS: Lithium Carbonate ER 300 MG TABLET.ER 1200 MG PO (20:17)
[2024-11-16] MEDS: hydrOXYzine HCL 50 MG TABLET PO (20:18)
[2024-11-16 20:19] VITALS: BP 106/55
[2024-11-16] MEDS: Acetaminophen 325 MG TABLET 650 MG PO (20:19)
[2024-11-16] MEDS: Prazosin HCL 1 MG CAPSULE 2 MG PO (20:19)
[2024-11-16 20:20] VITALS: BP 106/55
[2024-11-16] MEDS: Mirtazapine 30 MG TABLET PO (20:20)
[2024-11-16] MEDS: cloNIDine HCL 0.1 MG TABLET PO (20:20)
[2024-11-16] MEDS: Doxepin HCl 25 MG CAPSULE PO (20:20)
[2024-11-17] MEDS: Omeprazole 20 MG CAPSULE.DR PO (06:01)
[2024-11-17 07:00] VITALS: BMI 38.6
[2024-11-17 07:15] VITALS: BP 126/80; PULSE 96; RESP 16; TEMP 35.9; O2SAT 98
[2024-11-17] MEDS: methADONE HCl 20 MG/2 ML ORAL.CONC 165 MG PO (07:55)
[2024-11-17] MEDS: Venlafaxine HCl ER 37.5 MG CAP.ER.24H 112.5 MG PO (07:59)
[2024-11-17] MEDS: clonazePAM 1 MG TABLET PO (07:59)
[2024-11-17] MEDS: OLANZapine 5 MG TABLET PO ×2 (08:00→14:19)
[2024-11-17] MEDS: chlorproMAZINE HCl 25 MG TABLET PO ×3 (08:00→20:19)
[2024-11-17] MEDS: Promethazine HCL 25 MG TABLET 12.5 MG PO ×2 (08:00→20:19)
[2024-11-17] MEDS: Nicotine 21 MG PATCH.TD24 TRANSDERMA (08:01)
[2024-11-17] MEDS: Nicotine Polacrilex 2 MG GUM 4 MG BUCCAL ×5 (08:02→22:31)
--- NOTE | 2024-11-17 09:57 | P.PNPSI_ITS ---
Subjective Subjective Date of Service: 11/17/24 Reason For Visit: crisis Subjective Notes: Conditional Voluntary Interim History: Active on unit, social with peers. attending groups. Pt reports feeling okay ; pt stated, I'm not depressed. I'm just feeling anxious today . showered. denies SI/HI/VH/AH. pt reports poor sleep last night d/t nightmares; requesting increase in Prazosin. Dose increased to 3mg PO bedtime. DC clonidine 0.1mg PO bedtime DC zyprexa 5mg PO Q4HR PRN Medication Compliance: Yes Side effects from medications: No Attending Groups: Yes Mental Status Exam Mental Status Exam Narrative: Pt is alert and oriented; behavior is cooperative and calm; dressed in casual attire; mood is described as okay ; eye contact appropriate; Speech is normal rate, volume and not pressured; thought process is organized; Thought content is on tx/discharge; denies SI/HI/VH/AH. Diagnostics Vital Signs (24Hr): Vital Signs - 24 hr 11/16/24 20:00 11/16/24 20:19 11/16/24 20:20 Temperature 98.4 F Pulse Rate 84 Respiratory Rate 16 Blood Pressure 129/59 L 106/55 L 106/55 L Pulse Oximetry 99 Oxygen Delivery Method Room Air 11/17/24 07:15 Temperature 96.7 F L Pulse Rate 96 Respiratory Rate 16 Blood Pressure 126/80 Pulse Oximetry 98 Oxygen Delivery Method Room Air BMI result Body Mass Index 37.2 Labs 11/06/24 14:20 11/14/24 15:35 Medications Medications Current Medications Acetaminophen (Acetaminophen 325 Mg Tablet) 650 mg PO Q6H PRN PRN Reason: Headache/Pain, Scale 1-10 Last Admin: 11/16/24 20:19 Dose: 650 mg Al Hydroxide/Mg Hydroxide (Magnesium Hydrox/Alum Hydrox 30 Ml Oral.Susp) 30 ml PO Q6H PRN PRN Reason: Heartburn/Nausea Chlorpromazine HCl (Chlorpromazine Hcl 25 Mg Tablet) 25 mg PO QID PRN PRN Reason: nausea. severe anxiety Last Admin: 11/17/24 08:00 Dose: 25 mg Clonazepam (Clonazepam 1 Mg Tablet) 1 mg PO DAILY COLIN Last Admin: 11/17/24 07:59 Dose: 1 mg Clonazepam (Clonazepam 0.5 Mg Tablet) 0.5 mg PO BID@1500,2100 [facility], [facility] Last Admin: 11/16/24 20:20 Dose: 0.5 mg Clonidine HCl (Clonidine Hcl 0.1 Mg Tablet) 0.1 mg PO BEDTIME COLIN; Protocol Last Admin: 11/16/24 20:20 Dose: 0.1 mg Doxepin HCl (Doxepin Hcl 25 Mg Capsule) 25 mg PO BEDTIME COLIN Last Admin: 11/16/24 20:20 Dose: 25 mg Hydroxyzine HCl (Hydroxyzine Hcl 50 Mg Tablet) 50 mg PO Q6H PRN PRN Reason: mild anxiety Last Admin: 11/16/24 20:18 Dose: 50 mg [place] Carbonate ([place] Carbonate Er 300 Mg Tablet.Er) 1,200 mg PO BEDTIME COLIN Last Admin: 11/16/24 20:17 Dose: 1,200 mg Magnesium Hydroxide (Milk Of Magnesia 30 Ml Oral.Susp) 30 ml PO DAILY PRN PRN Reason: Constipation Methadone HCl (Methadone Hcl 20 Mg/2 Ml Oral.Conc) 165 mg PO DAILY@0800 [facility], [facility] Last Admin: 11/17/24 07:55 Dose: 165 mg Mirtazapine (Mirtazapine 30 Mg Tablet) 30 mg PO BEDTIME COLIN Last Admin: 11/16/24 20:20 Dose: 30 mg Nicotine (Nicotine 21 Mg Patch.Td24) 21 mg TRANSDERMA DAILY PRN PRN Reason: nicotine cravings Last Admin: 11/17/24 08:01 Dose: 21 mg Nicotine Polacrilex (Nicotine Polacrilex 2 Mg Gum) 4 mg BUCCAL Q2H PRN PRN Reason: nicotine cravings Last Admin: 11/17/24 08:02 Dose: 4 mg Olanzapine (Olanzapine 5 Mg Tablet) 5 mg PO Q4H PRN PRN Reason: agitation/anxiety Last Admin: 11/17/24 08:00 Dose: 5 mg Omeprazole (Omeprazole 20 Mg Capsule.Dr) 20 mg PO DAILY@0630 [facility], [facility] Last Admin: 11/17/24 06:01 Dose: 20 mg Prazosin HCl (Prazosin Hcl 1 Mg Capsule) 2 mg PO BEDTIME [facility], [facility]; Protocol Last Admin: 11/16/24 20:19 Dose: 2 mg Promethazine HCl (Promethazine Hcl 25 Mg Tablet) 12.5 mg PO BID [facility], [facility] Last Admin: 11/17/24 08:00 Dose: 12.5 mg Trazodone HCl (Trazodone Hcl 50 Mg Tablet) 50 mg PO BEDTIME MRX1 PRN PRN Reason: Insomnia Venlafaxine HCl (Venlafaxine Hcl Er 37.5 Mg Cap.Er.24h) 112.5 mg PO DAILY COLIN Last Admin: 11/17/24 07:59 Dose: 112.5 mg Allergies Allergies Allergy/AdvReac Type Severity Reaction Status Date / Time No Known Allergies (No Known Allergy Verified 11/06/24 13:32 Allergies*) Assessment & Plan Assessment & Plan (1) MDD (major depressive disorder), recurrent severe, without psychosis: Status: Acute Code(s): F33.2 - Major depressive disorder, recurrent severe without psychotic features (2) Panic disorder: Status: Acute Code(s): F41.0 - Panic disorder [episodic paroxysmal anxiety] (3) PTSD (post-traumatic stress disorder): Status: Acute Code(s): F43.10 - Post-traumatic stress disorder, unspecified (4) Opioid use disorder, severe, on maintenance therapy: Status: Acute Code(s): F11.20 - Opioid dependence, uncomplicated (5) Cyclical vomiting: Status: Acute Code(s): R11.15 - Cyclical vomiting syndrome unrelated to migraine Plan Patient is a 24-year-old male with history of MDD, DELGADO, PTSD, opiate use disorder who self presented to [facility] due to suicidal ideation with a plan to overdose on substances secondary to increased depression, panic attacks and paranoia. Plan: CV 15 minute safety checks Obtain collateral Continue home medications Encourage groups Referral to [facility]? Discharge planning 11/08: Patient continues to report feeling anxious today; focused on increasing benzodiazepines. He reports not taking his medications daily as prescribed. [place] level 0.49 on 11/08/24. Pt educated regarding importance of medication compliance. Remeron increased to 30mg PO bedtime. He denies having nightmares last night. Denies vomiting yesterday and has not yet today. Pt reports he does not want to return to his friends apartment and would like to be discharged to a long term when ready. denies SI/HI/VH/AH. 11/09: Isolating in room. Patient continues to report feeling anxious; pt stated, it's nothing in particular that makes me anxious . Denies vomiting yesterday and today. Passive SI with no plan or intent. denies HI/VH/AH. per nursing, slept 7 hours. Continue current tx plan. 11/10: Patient continues to report feeling anxious and depressed; he is requesting his klonopin to be TID; dose changed to klonopin 1mg PO daily, and 0.5mg PO BID@15,00, 2100; pt aware. He reports feeling hopeful ; pt stated, when I'm in the hospital my stomach is fine. I'm trying to be hopeful. 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 I just get down on myself because of my anxiety . denies SI/HI/VH/AH. [place] level to be redrawn on 11/14/24. Pt reports he plans on showering today. 11/11: Active on unit. attending groups. Patient reports feeling better ; pt stated, I feel like my anxiety is better with having the klonopin three times a day . showered. per nursing, slept 8 hours. denies SI/HI/VH/AH. Plan to discharge on Thursday if continues to improve; pt aware. 11/12 - requested inc compazine today- thought it was thorazine- will clarify with pt tomorrow promethazine or compazine- either doesn't seem warranted? 11/13 apparently I did inc frequency of thorazine to tid from bid, and the other 2 are prn for nausea/gi around anxiety- however I again inc thorazine to qid today- only at 25mg- 11/14: Active on unit, social with peers. attending groups. Patient reports feeling anxious d/t not wanting to go to a long term . 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 Pt reports his parents will not allow him to stay at their homes. focused on discharge. declined labs despite education. denies SI/HI/VH/AH. Continue current tx plan. 11/15: Patient continues to reports feeling anxious and depressed ; lithium level 0.44 on 11/14/24. [place] dose increased to 1,200mg PO bedtime; pt aware. denies SI/HI/VH/AH. Continue current tx plan. 11/16: Active on unit, social with peers. attending groups. Pt reports feeling a little better today; pt reports he plans on applying to go to the [employer] in [place], [place] or going to the long term in [place] when discharged. denies SI/HI/VH/AH. Continue current tx plan. 11/17: Active on unit, social with peers. attending groups. Pt reports feeling okay ; pt stated, I'm not depressed. I'm just feeling anxious today . showered. denies SI/HI/VH/AH. pt reports poor sleep last night d/t nightmares; requesting increase in Prazosin. Dose increased to 3mg PO bedtime. DC clonidine 0.1mg PO bedtime DC zyprexa 5mg PO Q4HR PRN Patient educated on: diagnosis, medication risk/benefits and therapeutic strategies Reason for continued inpatient stay Substantial Risk for: med/psych decompensation Time Spent With Patient Time: Total time managing care of this patient today _20___ minutes.
[2024-11-17] MEDS: clonazePAM 0.5 MG TABLET PO ×2 (14:19→20:19)
[2024-11-17 20:00] VITALS: BP 130/89; PULSE 91; RESP 16; TEMP 36.8; O2SAT 97
[2024-11-17] MEDS: Prazosin HCL 1 MG CAPSULE 3 MG PO (20:18)
[2024-11-17] MEDS: Lithium Carbonate ER 300 MG TABLET.ER 1200 MG PO (20:18)
[2024-11-17] MEDS: Doxepin HCl 25 MG CAPSULE PO (20:19)
[2024-11-17] MEDS: Mirtazapine 30 MG TABLET PO (20:19)
[2024-11-17] MEDS: hydrOXYzine HCL 50 MG TABLET PO (22:31)
[2024-11-17] MEDS: traZODone HCL 50 MG TABLET PO (22:47)
[2024-11-18] MEDS: Omeprazole 20 MG CAPSULE.DR PO (06:40)
[2024-11-18] MEDS: methADONE HCl 20 MG/2 ML ORAL.CONC 165 MG PO (07:49)
[2024-11-18 08:00] VITALS: BP 127/71; PULSE 73; RESP 14; TEMP 36.9; O2SAT 97
[2024-11-18] MEDS: Promethazine HCL 25 MG TABLET 12.5 MG PO ×2 (08:08→20:10)
[2024-11-18] MEDS: clonazePAM 1 MG TABLET PO (08:09)
[2024-11-18] MEDS: Nicotine 21 MG PATCH.TD24 TRANSDERMA (08:10)
[2024-11-18] MEDS: Venlafaxine HCl ER 37.5 MG CAP.ER.24H 112.5 MG PO (08:10)
[2024-11-18] MEDS: chlorproMAZINE HCl 25 MG TABLET PO ×3 (08:10→20:12)
[2024-11-18] MEDS: Nicotine Polacrilex 2 MG GUM 4 MG BUCCAL ×6 (08:33→22:16)
--- NOTE | 2024-11-18 10:14 | HO.PSYCHPN ---
Subjective Subjective Date of Service: 11/18/24 Reason For Visit: crisis Subjective Notes: Conditional Voluntary Interim History: Pt reports feeling good ; focused on discharge. pt stated, I feel ready to go on Thursday. I'm just anxious about it . Pt reports he plans on going to the alf in [place], [place]. denies SI/HI/VH/AH. Labs to be drawn on Thursday11/18/24. Continue current tx plan. Medication Compliance: Yes Side effects from medications: No Attending Groups: Yes Mental Status Exam Mental Status Exam Narrative: Pt is alert and oriented; behavior is cooperative and calm; dressed in casual attire; mood is described as good ; eye contact appropriate; Speech is normal rate, volume and not pressured; thought process is organized; Thought content is on discharge; denies SI/HI/VH/AH. Diagnostics Vital Signs (24Hr): Vital Signs - 24 hr 11/17/24 20:00 11/18/24 08:00 Temperature 98.2 F 98.5 F Pulse Rate 91 73 Respiratory Rate 16 14 Blood Pressure 130/89 127/71 Pulse Oximetry 97 97 Oxygen Delivery Method Room Air Room Air BMI result Body Mass Index 38.6 Labs 11/06/24 14:20 11/14/24 15:35 Medications Medications Current Medications Acetaminophen (Acetaminophen 325 Mg Tablet) 650 mg PO Q6H PRN PRN Reason: Headache/Pain, Scale 1-10 Last Admin: 11/16/24 20:19 Dose: 650 mg Al Hydroxide/Mg Hydroxide (Magnesium Hydrox/Alum Hydrox 30 Ml Oral.Susp) 30 ml PO Q6H PRN PRN Reason: Heartburn/Nausea Chlorpromazine HCl (Chlorpromazine Hcl 25 Mg Tablet) 25 mg PO QID PRN PRN Reason: nausea. severe anxiety Last Admin: 11/18/24 08:10 Dose: 25 mg Clonazepam (Clonazepam 1 Mg Tablet) 1 mg PO DAILY COLIN Last Admin: 11/18/24 08:09 Dose: 1 mg Clonazepam (Clonazepam 0.5 Mg Tablet) 0.5 mg PO BID@1500,2100 [facility] Last Admin: 11/17/24 20:19 Dose: 0.5 mg Doxepin HCl (Doxepin Hcl 25 Mg Capsule) 25 mg PO BEDTIME COLIN Last Admin: 11/17/24 20:19 Dose: 25 mg Hydroxyzine HCl (Hydroxyzine Hcl 50 Mg Tablet) 50 mg PO Q6H PRN PRN Reason: mild anxiety Last Admin: 11/17/24 22:31 Dose: 50 mg [place] Carbonate ([place] Carbonate Er 300 Mg Tablet.Er) 1,200 mg PO BEDTIME COLIN Last Admin: 11/17/24 20:18 Dose: 1,200 mg Magnesium Hydroxide (Milk Of Magnesia 30 Ml Oral.Susp) 30 ml PO DAILY PRN PRN Reason: Constipation Methadone HCl (Methadone Hcl 20 Mg/2 Ml Oral.Conc) 165 mg PO DAILY@0800 [facility] Last Admin: 11/18/24 07:49 Dose: 165 mg Mirtazapine (Mirtazapine 30 Mg Tablet) 30 mg PO BEDTIME COLIN Last Admin: 11/17/24 20:19 Dose: 30 mg Nicotine (Nicotine 21 Mg Patch.Td24) 21 mg TRANSDERMA DAILY PRN PRN Reason: nicotine cravings Last Admin: 11/18/24 08:10 Dose: 21 mg Nicotine Polacrilex (Nicotine Polacrilex 2 Mg Gum) 4 mg BUCCAL Q2H PRN PRN Reason: nicotine cravings Last Admin: 11/18/24 08:33 Dose: 4 mg Omeprazole (Omeprazole 20 Mg Capsule.Dr) 20 mg PO DAILY@0630 [facility] Last Admin: 11/18/24 06:40 Dose: 20 mg Prazosin HCl (Prazosin Hcl 1 Mg Capsule) 3 mg PO BEDTIME [facility]; Protocol Last Admin: 11/17/24 20:18 Dose: 3 mg Promethazine HCl (Promethazine Hcl 25 Mg Tablet) 12.5 mg PO BID [facility] Last Admin: 11/18/24 08:08 Dose: 12.5 mg Trazodone HCl (Trazodone Hcl 50 Mg Tablet) 50 mg PO BEDTIME MRX1 PRN PRN Reason: Insomnia Last Admin: 11/17/24 22:47 Dose: 50 mg Venlafaxine HCl (Venlafaxine Hcl Er 37.5 Mg Cap.Er.24h) 112.5 mg PO DAILY [facility] Last Admin: 11/18/24 08:10 Dose: 112.5 mg Allergies Allergies Allergy/AdvReac Type Severity Reaction Status Date / Time No Known Allergies (No Known Allergy Verified 11/06/24 13:32 Allergies*) Assessment & Plan Assessment & Plan (1) MDD (major depressive disorder), recurrent severe, without psychosis: Status: Acute Code(s): F33.2 - Major depressive disorder, recurrent severe without psychotic features (2) Panic disorder: Status: Acute Code(s): F41.0 - Panic disorder [episodic paroxysmal anxiety] (3) PTSD (post-traumatic stress disorder): Status: Acute Code(s): F43.10 - Post-traumatic stress disorder, unspecified (4) Opioid use disorder, severe, on maintenance therapy: Status: Acute Code(s): F11.20 - Opioid dependence, uncomplicated (5) Cyclical vomiting: Status: Acute Code(s): R11.15 - Cyclical vomiting syndrome unrelated to migraine Plan Patient is a 24-year-old male with history of MDD, DELGADO, PTSD, opiate use disorder who self presented to [facility] due to suicidal ideation with a plan to overdose on substances secondary to increased depression, panic attacks and paranoia. Plan: CV 15 minute safety checks Obtain collateral Continue home medications Encourage groups Referral to [facility]? Discharge planning 11/08: Patient continues to report feeling anxious today; focused on increasing benzodiazepines. He reports not taking his medications daily as prescribed. [place] level 0.49 on 11/08/24. Pt educated regarding importance of medication compliance. Remeron increased to 30mg PO bedtime. He denies having nightmares last night. Denies vomiting yesterday and has not yet today. Pt reports he does not want to return to his friends apartment and would like to be discharged to a alf when ready. denies SI/HI/VH/AH. 11/09: Isolating in room. Patient continues to report feeling anxious; pt stated, it's nothing in particular that makes me anxious . Denies vomiting yesterday and today. Passive SI with no plan or intent. denies HI/VH/AH. per nursing, slept 7 hours. Continue current tx plan. 11/10: Patient continues to report feeling anxious and depressed; he is requesting his klonopin to be TID; dose changed to klonopin 1mg PO daily, and 0.5mg PO BID@15,00, 2100; pt aware. He reports feeling hopeful ; pt stated, when I'm in the hospital my stomach is fine. I'm trying to be hopeful. 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 I just get down on myself because of my anxiety . denies SI/HI/VH/AH. [place] level to be redrawn on 11/14/24. Pt reports he plans on showering today. 11/11: Active on unit. attending groups. Patient reports feeling better ; pt stated, I feel like my anxiety is better with having the klonopin three times a day . showered. per nursing, slept 8 hours. denies SI/HI/VH/AH. Plan to discharge on Thursday if continues to improve; pt aware. 11/12 - requested inc compazine today- thought it was thorazine- will clarify with pt tomorrow promethazine or compazine- either doesn't seem warranted? 11/13 apparently I did inc frequency of thorazine to tid from bid, and the other 2 are prn for nausea/gi around anxiety- however I again inc thorazine to qid today- only at 25mg- 11/14: Active on unit, social with peers. attending groups. Patient reports feeling anxious d/t not wanting to go to a alf . 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 Pt reports his parents will not allow him to stay at their homes. focused on discharge. declined labs despite education. denies SI/HI/VH/AH. Continue current tx plan. 11/15: Patient continues to reports feeling anxious and depressed ; lithium level 0.44 on 11/14/24. [place] dose increased to 1,200mg PO bedtime; pt aware. denies SI/HI/VH/AH. Continue current tx plan. 11/16: Active on unit, social with peers. attending groups. Pt reports feeling a little better today; pt reports he plans on applying to go to the [facility] in [place], [place] or going to the alf in [place] when discharged. denies SI/HI/VH/AH. Continue current tx plan. 11/17: Active on unit, social with peers. attending groups. Pt reports feeling okay ; pt stated, I'm not depressed. I'm just feeling anxious today . showered. denies SI/HI/VH/AH. pt reports poor sleep last night d/t nightmares; requesting increase in Prazosin. Dose increased to 3mg PO bedtime. DC clonidine 0.1mg PO bedtime DC zyprexa 5mg PO Q4HR PRN 11/18: Pt reports feeling good ; focused on discharge. pt stated, I feel ready to go on Thursday. I'm just anxious about it . Pt reports he plans on going to the alf in [place], [place]. denies SI/HI/VH/AH. Labs to be drawn on Thursday11/18/24. Continue current tx plan. Patient educated on: diagnosis, medication risk/benefits and therapeutic strategies Reason for continued inpatient stay Substantial Risk for: med/psych decompensation Time Spent With Patient Time: Total time managing care of this patient today _20___ minutes.
[2024-11-18] MEDS: hydrOXYzine HCL 50 MG TABLET PO ×2 (10:19→20:11)
[2024-11-18] MEDS: clonazePAM 0.5 MG TABLET PO ×2 (15:30→20:12)
[2024-11-18 20:00] VITALS: PULSE 92; RESP 18; TEMP 37.1; O2SAT 98
[2024-11-18 20:11] VITALS: BP 130/86
[2024-11-18] MEDS: Doxepin HCl 25 MG CAPSULE PO (20:11)
[2024-11-18] MEDS: Prazosin HCL 1 MG CAPSULE 3 MG PO (20:11)
[2024-11-18] MEDS: Lithium Carbonate ER 300 MG TABLET.ER 1200 MG PO (20:12)
[2024-11-18] MEDS: Mirtazapine 30 MG TABLET PO (20:12)
[2024-11-18] MEDS: Acetaminophen 325 MG TABLET 650 MG PO (23:01)
[2024-11-19] MEDS: Omeprazole 20 MG CAPSULE.DR PO (06:27)
[2024-11-19 08:00] VITALS: BP 154/108; PULSE 81; RESP 16; TEMP 36.7; O2SAT 98
[2024-11-19] MEDS: methADONE HCl 20 MG/2 ML ORAL.CONC 165 MG PO (08:02)
[2024-11-19] MEDS: Promethazine HCL 25 MG TABLET 12.5 MG PO ×2 (08:31→20:26)
[2024-11-19] MEDS: clonazePAM 1 MG TABLET PO (08:31)
[2024-11-19] MEDS: Venlafaxine HCl ER 37.5 MG CAP.ER.24H 112.5 MG PO (08:32)
[2024-11-19] MEDS: chlorproMAZINE HCl 25 MG TABLET PO ×4 (08:33→23:27)
[2024-11-19] MEDS: Nicotine Polacrilex 2 MG GUM 4 MG BUCCAL ×5 (08:33→22:31)
[2024-11-19] MEDS: Nicotine 21 MG PATCH.TD24 TRANSDERMA (08:34)
--- NOTE | 2024-11-19 09:37 | HO.PSYCHPN ---
Subjective Subjective Date of Service: 11/19/24 Reason For Visit: crisis Subjective Notes: Conditional Voluntary Interim History: Patient was seen and discussed in rounds today. Records and plans were reviewed. He has been stable but continues to have a lot of anxiety. Concerned about his discharge planning and options. Medication compliant. Eating and sleeping adequately. PRNs or used with not much effect. No SI. No AVH. No changes were made today Review of Systems Review of Systems Frequent urination but no other symptoms of possible UTI Yes all other systems are reviewed and are negative Mental Status Exam Mental Status Exam Narrative: In today's visit he is alert, oriented and pleasant. Normal speech. Good eye contact. Affect is constricted. No overt signs of psychosis. No AVH. No signs of anxiety but complains of that. No SI. Moves all limbs. No gait abnormalities. Cognitively intact. Judgment is intact Diagnostics Vital Signs (24Hr): Vital Signs - 24 hr 11/18/24 20:00 11/18/24 20:11 11/19/24 08:00 Temperature 98.7 F 98.1 F Pulse Rate 92 81 Respiratory Rate 18 16 Blood Pressure 130/86 154/108 H Pulse Oximetry 98 98 Oxygen Delivery Method Room Air Room Air BMI result Body Mass Index 38.6 Labs 11/06/24 14:20 11/14/24 15:35 Medications Medications Current Medications Acetaminophen (Acetaminophen 325 Mg Tablet) 650 mg PO Q6H PRN PRN Reason: Headache/Pain, Scale 1-10 Last Admin: 11/18/24 23:01 Dose: 650 mg Al Hydroxide/Mg Hydroxide (Magnesium Hydrox/Alum Hydrox 30 Ml Oral.Susp) 30 ml PO Q6H PRN PRN Reason: Heartburn/Nausea Chlorpromazine HCl (Chlorpromazine Hcl 25 Mg Tablet) 25 mg PO QID PRN PRN Reason: nausea. severe anxiety Last Admin: 11/19/24 08:33 Dose: 25 mg Clonazepam (Clonazepam 1 Mg Tablet) 1 mg PO DAILY [facility] Last Admin: 11/19/24 08:31 Dose: 1 mg Clonazepam (Clonazepam 0.5 Mg Tablet) 0.5 mg PO BID@1500,2100 [facility] Last Admin: 11/18/24 20:12 Dose: 0.5 mg Doxepin HCl (Doxepin Hcl 25 Mg Capsule) 25 mg PO BEDTIME [facility] Last Admin: 11/18/24 20:11 Dose: 25 mg Hydroxyzine HCl (Hydroxyzine Hcl 50 Mg Tablet) 50 mg PO Q6H PRN PRN Reason: mild anxiety Last Admin: 11/18/24 20:11 Dose: 50 mg [place] Carbonate ([place] Carbonate Er 300 Mg Tablet.Er) 1,200 mg PO BEDTIME [facility] Last Admin: 11/18/24 20:12 Dose: 1,200 mg Magnesium Hydroxide (Milk Of Magnesia 30 Ml Oral.Susp) 30 ml PO DAILY PRN PRN Reason: Constipation Methadone HCl (Methadone Hcl 20 Mg/2 Ml Oral.Conc) 165 mg PO DAILY@0800 [facility] Last Admin: 11/19/24 08:02 Dose: 165 mg Mirtazapine (Mirtazapine 30 Mg Tablet) 30 mg PO BEDTIME [facility] Last Admin: 11/18/24 20:12 Dose: 30 mg Nicotine (Nicotine 21 Mg Patch.Td24) 21 mg TRANSDERMA DAILY PRN PRN Reason: nicotine cravings Last Admin: 11/19/24 08:34 Dose: 21 mg Nicotine Polacrilex (Nicotine Polacrilex 2 Mg Gum) 4 mg BUCCAL Q2H PRN PRN Reason: nicotine cravings Last Admin: 11/19/24 08:33 Dose: 4 mg Omeprazole (Omeprazole 20 Mg Capsule.Dr) 20 mg PO DAILY@0630 [facility] Last Admin: 11/19/24 06:27 Dose: 20 mg Prazosin HCl (Prazosin Hcl 1 Mg Capsule) 3 mg PO BEDTIME [facility]; Protocol Last Admin: 11/18/24 20:11 Dose: 3 mg Promethazine HCl (Promethazine Hcl 25 Mg Tablet) 12.5 mg PO BID [facility] Last Admin: 11/19/24 08:31 Dose: 12.5 mg Trazodone HCl (Trazodone Hcl 50 Mg Tablet) 50 mg PO BEDTIME MRX1 PRN PRN Reason: Insomnia Last Admin: 11/17/24 22:47 Dose: 50 mg Venlafaxine HCl (Venlafaxine Hcl Er 37.5 Mg Cap.Er.24h) 112.5 mg PO DAILY [facility] Last Admin: 11/19/24 08:32 Dose: 112.5 mg Allergies Allergies Allergy/AdvReac Type Severity Reaction Status Date / Time No Known Allergies (No Known Allergy Verified 11/06/24 13:32 Allergies*) Assessment & Plan Assessment & Plan (1) MDD (major depressive disorder), recurrent severe, without psychosis: Status: Acute Code(s): F33.2 - Major depressive disorder, recurrent severe without psychotic features (2) Panic disorder: Status: Acute Code(s): F41.0 - Panic disorder [episodic paroxysmal anxiety] (3) PTSD (post-traumatic stress disorder): Status: Acute Code(s): F43.10 - Post-traumatic stress disorder, unspecified (4) Opioid use disorder, severe, on maintenance therapy: Status: Acute Code(s): F11.20 - Opioid dependence, uncomplicated (5) Cyclical vomiting: Status: Acute Code(s): R11.15 - Cyclical vomiting syndrome unrelated to migraine Plan Patient is a 24-year-old male with history of MDD, DELGADO, PTSD, opiate use disorder who self presented to [facility] due to suicidal ideation with a plan to overdose on substances secondary to increased depression, panic attacks and paranoia. Plan: CV 15 minute safety checks Obtain collateral Continue home medications Encourage groups Referral to [facility]? Discharge planning 11/08: Patient continues to report feeling anxious today; focused on increasing benzodiazepines. He reports not taking his medications daily as prescribed. [place] level 0.49 on 11/08/24. Pt educated regarding importance of medication compliance. Remeron increased to 30mg PO bedtime. He denies having nightmares last night. Denies vomiting yesterday and has not yet today. Pt reports he does not want to return to his friends apartment and would like to be discharged to a snf when ready. denies SI/HI/VH/AH. 11/09: Isolating in room. Patient continues to report feeling anxious; pt stated, it's nothing in particular that makes me anxious . Denies vomiting yesterday and today. Passive SI with no plan or intent. denies HI/VH/AH. per nursing, slept 7 hours. Continue current tx plan. 11/10: Patient continues to report feeling anxious and depressed; he is requesting his klonopin to be TID; dose changed to klonopin 1mg PO daily, and 0.5mg PO BID@15,00, 2100; pt aware. He reports feeling hopeful ; pt stated, when I'm in the hospital my stomach is fine. I'm trying to be hopeful. 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 I just get down on myself because of my anxiety . denies SI/HI/VH/AH. [place] level to be redrawn on 11/14/24. Pt reports he plans on showering today. 11/11: Active on unit. attending groups. Patient reports feeling better ; pt stated, I feel like my anxiety is better with having the klonopin three times a day . showered. per nursing, slept 8 hours. denies SI/HI/VH/AH. Plan to discharge on Thursday if continues to improve; pt aware. 11/12 - requested inc compazine today- thought it was thorazine- will clarify with pt tomorrow promethazine or compazine- either doesn't seem warranted? 11/13 apparently I did inc frequency of thorazine to tid from bid, and the other 2 are prn for nausea/gi around anxiety- however I again inc thorazine to qid today- only at 25mg- 11/14: Active on unit, social with peers. attending groups. Patient reports feeling anxious d/t not wanting to go to a snf . church worker reports, pt was declined from respite. Pt reports his parents will not allow him to stay at their homes. focused on discharge. declined labs despite education. denies SI/HI/VH/AH. Continue current tx plan. 11/15: Patient continues to reports feeling anxious and depressed ; lithium level 0.44 on 11/14/24. [place] dose increased to 1,200mg PO bedtime; pt aware. denies SI/HI/VH/AH. Continue current tx plan. 11/16: Active on unit, social with peers. attending groups. Pt reports feeling a little better today; pt reports he plans on applying to go to the [facility] in [place], [place] or going to the snf in [place] when discharged. denies SI/HI/VH/AH. Continue current tx plan. 11/17: Active on unit, social with peers. attending groups. Pt reports feeling okay ; pt stated, I'm not depressed. I'm just feeling anxious today . showered. denies SI/HI/VH/AH. pt reports poor sleep last night d/t nightmares; requesting increase in Prazosin. Dose increased to 3mg PO bedtime. DC clonidine 0.1mg PO bedtime DC zyprexa 5mg PO Q4HR PRN 11/18: Pt reports feeling good ; focused on discharge. pt stated, I feel ready to go on Thursday. I'm just anxious about it . Pt reports he plans on going to the snf in [place], [place]. denies SI/HI/VH/AH. Labs to be drawn on Thursday11/18/24. Continue current tx plan. 11/19: Continue current regimen and plans Reason for continued inpatient stay Substantial Risk for: med/psych decompensation Time Spent With Patient Time: Total time managing care of this patient today ____ minutes.
[2024-11-19] MEDS: clonazePAM 0.5 MG TABLET PO ×2 (14:47→20:26)
[2024-11-19] MEDS: Hydrocortisone 1 % Cream 28.35 GM TUBE 1 APPL TOPICAL (19:01)
[2024-11-19 19:50] VITALS: BP 134/77; PULSE 98; RESP 16; TEMP 38.4; O2SAT 96
[2024-11-19] MEDS: Doxepin HCl 25 MG CAPSULE PO (20:25)
[2024-11-19] MEDS: Lithium Carbonate ER 300 MG TABLET.ER 1200 MG PO (20:25)
[2024-11-19] MEDS: hydrOXYzine HCL 50 MG TABLET PO (20:25)
[2024-11-19] MEDS: Mirtazapine 30 MG TABLET PO (20:25)
[2024-11-19] MEDS: Prazosin HCL 1 MG CAPSULE 3 MG PO (20:25)
[2024-11-19 20:33] VITALS: TEMP 36.4
[2024-11-20] MEDS: Omeprazole 20 MG CAPSULE.DR PO (06:40)
[2024-11-20] MEDS: methADONE HCl 20 MG/2 ML ORAL.CONC 165 MG PO (07:56)
[2024-11-20 07:57] LABS: Lithium 0.77 mmol/L (0.60-1.20)
[2024-11-20 08:00] VITALS: BP 135/87; PULSE 89; RESP 17; TEMP 36.8; O2SAT 98
[2024-11-20 08:01] LABS: Anion Gap 12 (12-20); Blood Urea Nitrogen 12 mg/dL (9-16); Carbon Dioxide 27 mmol/L (22-29); Chloride 107 mmol/L (96-108); Estimated Glomerular Filt Rate > 60; Potassium 3.9 mmol/L (3.3-5.1); Sodium 142 mmol/L (135-145)
[2024-11-20] MEDS: clonazePAM 1 MG TABLET PO (08:08)
[2024-11-20] MEDS: Venlafaxine HCl ER 37.5 MG CAP.ER.24H 112.5 MG PO (08:09)
[2024-11-20] MEDS: Promethazine HCL 25 MG TABLET 12.5 MG PO ×2 (08:09→20:09)
[2024-11-20] MEDS: chlorproMAZINE HCl 25 MG TABLET PO ×3 (08:09→20:10)
[2024-11-20] MEDS: Nicotine Polacrilex 2 MG GUM 4 MG BUCCAL ×7 (08:10→22:27)
--- NOTE | 2024-11-20 08:57 | HO.PSYCHPN ---
Subjective Subjective Date of Service: 11/20/24 Reason For Visit: crisis Subjective Notes: Conditional Voluntary Interim History: Patient was seen and discussed in rounds today. Records and plans were reviewed. He has been doing fairly well with no behavioral issues. Denies any depression or anxiety. Continues to be guarded and withdrawn. Medication compliant. Still has some auditory hallucinations. No SI. Anxious over discharge planning. Eating and sleeping adequately. No changes were made today Review of Systems Review of Systems Yes all other systems are reviewed and are negative Mental Status Exam Mental Status Exam Narrative: In today's visit he is alert, oriented and pleasant. Normal speech. Good eye contact. Affect is constricted. No overt signs of psychosis. No delusions. No AVH. No signs of anxiety but complains of that. No SI. Moves all limbs. No gait abnormalities. Cognitively intact. Judgment is intact Diagnostics Vital Signs (24Hr): Vital Signs - 24 hr 11/19/24 19:50 11/19/24 20:33 11/20/24 08:00 Temperature 101.1 F H 97.6 F 98.3 F Pulse Rate 98 89 Respiratory Rate 16 17 Blood Pressure 134/77 135/87 Pulse Oximetry 96 98 Oxygen Delivery Method Room Air Room Air BMI result Body Mass Index 38.6 Labs 11/06/24 14:20 11/20/24 07:33 Labs: Laboratory Results - last 48 hr 11/20/24 07:33 Sodium 142 Potassium 3.9 Chloride 107 Carbon Dioxide 27 Anion Gap 12 BUN 12 Creatinine 0.93 Estim Creat Clear Calc 172.0 Estimated GFR > 60 [place] 0.77 Medications Medications Current Medications Acetaminophen (Acetaminophen 325 Mg Tablet) 650 mg PO Q6H PRN PRN Reason: Headache/Pain, Scale 1-10 Last Admin: 11/18/24 23:01 Dose: 650 mg Al Hydroxide/Mg Hydroxide (Magnesium Hydrox/Alum Hydrox 30 Ml Oral.Susp) 30 ml PO Q6H PRN PRN Reason: Heartburn/Nausea Chlorpromazine HCl (Chlorpromazine Hcl 25 Mg Tablet) 25 mg PO QID PRN PRN Reason: nausea. severe anxiety Last Admin: 11/20/24 08:09 Dose: 25 mg Clonazepam (Clonazepam 1 Mg Tablet) 1 mg PO DAILY [facility] Last Admin: 11/20/24 08:08 Dose: 1 mg Clonazepam (Clonazepam 0.5 Mg Tablet) 0.5 mg PO BID@1500,2100 [facility] Last Admin: 11/19/24 20:26 Dose: 0.5 mg Doxepin HCl (Doxepin Hcl 25 Mg Capsule) 25 mg PO BEDTIME [facility] Last Admin: 11/19/24 20:25 Dose: 25 mg Hydrocortisone (Hydrocortisone 1 % Cream 28.35 Gm Tube) 1 appl TOPICAL BID PRN; Protocol PRN Reason: Rash Last Admin: 11/19/24 19:01 Dose: 1 appl Hydroxyzine HCl (Hydroxyzine Hcl 50 Mg Tablet) 50 mg PO Q6H PRN PRN Reason: mild anxiety Last Admin: 11/19/24 20:25 Dose: 50 mg [place] Carbonate ([place] Carbonate Er 300 Mg Tablet.Er) 1,200 mg PO BEDTIME [facility] Last Admin: 11/19/24 20:25 Dose: 1,200 mg Magnesium Hydroxide (Milk Of Magnesia 30 Ml Oral.Susp) 30 ml PO DAILY PRN PRN Reason: Constipation Methadone HCl (Methadone Hcl 20 Mg/2 Ml Oral.Conc) 165 mg PO DAILY@0800 [facility] Last Admin: 11/20/24 07:56 Dose: 165 mg Mirtazapine (Mirtazapine 30 Mg Tablet) 30 mg PO BEDTIME [facility] Last Admin: 11/19/24 20:25 Dose: 30 mg Nicotine (Nicotine 21 Mg Patch.Td24) 21 mg TRANSDERMA DAILY PRN PRN Reason: nicotine cravings Last Admin: 11/19/24 08:34 Dose: 21 mg Nicotine Polacrilex (Nicotine Polacrilex 2 Mg Gum) 4 mg BUCCAL Q2H PRN PRN Reason: nicotine cravings Last Admin: 11/20/24 08:10 Dose: 4 mg Omeprazole (Omeprazole 20 Mg Capsule.Dr) 20 mg PO DAILY@0630 [facility] Last Admin: 11/20/24 06:40 Dose: 20 mg Prazosin HCl (Prazosin Hcl 1 Mg Capsule) 3 mg PO BEDTIME [facility]; Protocol Last Admin: 11/19/24 20:25 Dose: 3 mg Promethazine HCl (Promethazine Hcl 25 Mg Tablet) 12.5 mg PO BID [facility] Last Admin: 11/20/24 08:09 Dose: 12.5 mg Trazodone HCl (Trazodone Hcl 50 Mg Tablet) 50 mg PO BEDTIME MRX1 PRN PRN Reason: Insomnia Last Admin: 11/17/24 22:47 Dose: 50 mg Venlafaxine HCl (Venlafaxine Hcl Er 37.5 Mg Cap.Er.24h) 112.5 mg PO DAILY [facility] Last Admin: 11/20/24 08:09 Dose: 112.5 mg Allergies Allergies Allergy/AdvReac Type Severity Reaction Status Date / Time No Known Allergies (No Known Allergy Verified 11/06/24 13:32 Allergies*) Assessment & Plan Assessment & Plan (1) MDD (major depressive disorder), recurrent severe, without psychosis: Status: Acute Code(s): F33.2 - Major depressive disorder, recurrent severe without psychotic features (2) Panic disorder: Status: Acute Code(s): F41.0 - Panic disorder [episodic paroxysmal anxiety] (3) PTSD (post-traumatic stress disorder): Status: Acute Code(s): F43.10 - Post-traumatic stress disorder, unspecified (4) Opioid use disorder, severe, on maintenance therapy: Status: Acute Code(s): F11.20 - Opioid dependence, uncomplicated (5) Cyclical vomiting: Status: Acute Code(s): R11.15 - Cyclical vomiting syndrome unrelated to migraine Plan Patient is a 24-year-old male with history of MDD, DELGADO, PTSD, opiate use disorder who self presented to [facility] ER due to suicidal ideation with a plan to overdose on substances secondary to increased depression, panic attacks and paranoia. Plan: CV 15 minute safety checks Obtain collateral Continue home medications Encourage groups Referral to [facility]? Discharge planning 11/08: Patient continues to report feeling anxious today; focused on increasing benzodiazepines. He reports not taking his medications daily as prescribed. [place] level 0.49 on 11/08/24. Pt educated regarding importance of medication compliance. Remeron increased to 30mg PO bedtime. He denies having nightmares last night. Denies vomiting yesterday and has not yet today. Pt reports he does not want to return to his friends apartment and would like to be discharged to a skilled nursing when ready. denies SI/HI/VH/AH. 11/09: Isolating in room. Patient continues to report feeling anxious; pt stated, it's nothing in particular that makes me anxious . Denies vomiting yesterday and today. Passive SI with no plan or intent. denies HI/VH/AH. per nursing, slept 7 hours. Continue current tx plan. 11/10: Patient continues to report feeling anxious and depressed; he is requesting his klonopin to be TID; dose changed to klonopin 1mg PO daily, and 0.5mg PO BID@15,00, 2100; pt aware. He reports feeling hopeful ; pt stated, when I'm in the hospital my stomach is fine. I'm trying to be hopeful. 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 I just get down on myself because of my anxiety . denies SI/HI/VH/AH. [place] level to be redrawn on 11/14/24. Pt reports he plans on showering today. 11/11: Active on unit. attending groups. Patient reports feeling better ; pt stated, I feel like my anxiety is better with having the klonopin three times a day . showered. per nursing, slept 8 hours. denies SI/HI/VH/AH. Plan to discharge on Thursday if continues to improve; pt aware. 11/12 - requested inc compazine today- thought it was thorazine- will clarify with pt tomorrow promethazine or compazine- either doesn't seem warranted? 11/13 apparently I did inc frequency of thorazine to tid from bid, and the other 2 are prn for nausea/gi around anxiety- however I again inc thorazine to qid today- only at 25mg- 11/14: Active on unit, social with peers. attending groups. Patient reports feeling anxious d/t not wanting to go to a skilled nursing . speeder worker reports, pt was declined from respite. Pt reports his parents will not allow him to stay at their homes. focused on discharge. declined labs despite education. denies SI/HI/VH/AH. Continue current tx plan. 11/15: Patient continues to reports feeling anxious and depressed ; lithium level 0.44 on 11/14/24. [place] dose increased to 1,200mg PO bedtime; pt aware. denies SI/HI/VH/AH. Continue current tx plan. 11/16: Active on unit, social with peers. attending groups. Pt reports feeling a little better today; pt reports he plans on applying to go to the [facility] in [place], [place] or going to the skilled nursing in [place] when discharged. denies SI/HI/VH/AH. Continue current tx plan. 11/17: Active on unit, social with peers. attending groups. Pt reports feeling okay ; pt stated, I'm not depressed. I'm just feeling anxious today . showered. denies SI/HI/VH/AH. pt reports poor sleep last night d/t nightmares; requesting increase in Prazosin. Dose increased to 3mg PO bedtime. DC clonidine 0.1mg PO bedtime DC zyprexa 5mg PO Q4HR PRN 11/18: Pt reports feeling good ; focused on discharge. pt stated, I feel ready to go on Thursday. I'm just anxious about it . Pt reports he plans on going to the skilled nursing in [place], [place]. denies SI/HI/VH/AH. Labs to be drawn on Thursday11/18/24. Continue current tx plan. 11/19: Continue current regimen and plans 11/20: Continue current regimen and plans Reason for continued inpatient stay Substantial Risk for: med/psych decompensation Time Spent With Patient Time: Total time managing care of this patient today ____ minutes.
[2024-11-20] MEDS: hydrOXYzine HCL 50 MG TABLET PO ×2 (11:34→20:08)
[2024-11-20] MEDS: clonazePAM 0.5 MG TABLET PO ×2 (14:44→20:10)
[2024-11-20] MEDS: Hydrocortisone 1 % Cream 28.35 GM TUBE 1 APPL TOPICAL ×2 (15:36→20:08)
[2024-11-20 20:00] VITALS: BP 135/89; PULSE 106; RESP 18; TEMP 36.9; O2SAT 97
[2024-11-20] MEDS: Prazosin HCL 1 MG CAPSULE 3 MG PO (20:09)
[2024-11-20] MEDS: Lithium Carbonate ER 300 MG TABLET.ER 1200 MG PO (20:09)
[2024-11-20] MEDS: Doxepin HCl 25 MG CAPSULE PO (20:10)
[2024-11-20] MEDS: Mirtazapine 30 MG TABLET PO (20:10)
[2024-11-21] MEDS: Omeprazole 20 MG CAPSULE.DR PO (06:56)
[2024-11-21 07:56] VITALS: BP 140/78; PULSE 100; RESP 16; TEMP 36.4; O2SAT 97
[2024-11-21] MEDS: methADONE HCl 20 MG/2 ML ORAL.CONC 165 MG PO (08:06)
[2024-11-21] MEDS: Promethazine HCL 25 MG TABLET 12.5 MG PO (08:27)
[2024-11-21] MEDS: clonazePAM 1 MG TABLET PO (08:28)
[2024-11-21] MEDS: Venlafaxine HCl ER 37.5 MG CAP.ER.24H 112.5 MG PO (08:28)
[2024-11-21] MEDS: chlorproMAZINE HCl 25 MG TABLET PO (08:29)
[2024-11-21] MEDS: Nicotine Polacrilex 2 MG GUM 4 MG BUCCAL (08:29)
--- NOTE | 2024-11-21 09:16 | P.DS_ITS ---
DS: Providers Provider Date of Service: 11/21/24 Date of admission: 11/07/24 12:35 Date of discharge: 11/21/24 Primary care physician: Ken Physician Admitting clinician: Yara Vincent Attending physician on admission: Riki Che Attending physician on discharge: Riki Che Discharging clinician: Yara Vincent DS: Diagnosis Discharge Diagnosis (1) MDD (major depressive disorder), recurrent severe, without psychosis: Status: Acute (2) Panic disorder: Status: Acute (3) PTSD (post-traumatic stress disorder): Status: Acute (4) Opioid use disorder, severe, on maintenance therapy: Status: Acute (5) Cyclical vomiting: Status: Acute DS: Medications Discharge Medications Home Medications: Home Medications ?Medication ?Instructions ?Recorded ?Confirmed methadone 10 mg/mL oral 165 mg PO DAILY@0800 5 11/06/24 concentrate (Methadose) Previous Rx's ?Medication ?Instructions ?Recorded nicotine (polacrilex) 4 mg gum 4 mg buccal Q2H PRN jeet otine 07/28/24 cravings 30 days #100 ea nicotine 21 mg/24 hr daily 21 mg transdermal DAILY PRN 07/28/24 transdermal patch nicotine cravings 28 days #2 8 ea chlorpromazine 25 mg tablet 25 mg PO QID nausea. sever e 11/21/24 anxiety 30 days #120 tabs clonazepam 1 mg tablet (Klonopin) 1 mg PO BID 7 days # 14 tabs 11/21/24 doxepin 25 mg capsule 25 mg PO BEDTIME 30 days #30 caps 11/21/24 lithium carbonate 300 mg 1,200 mg (4 x 300 mg) PO BED TIME 11/21/24 tablet,extended release 30 days #120 tabs mirtazapine 30 mg tablet 30 mg PO BEDTIME 30 days #30 tabs 11/21/24 omeprazole 20 mg capsule,delayed 20 mg PO DAILY@0630 3 0 days #30 11/21/24 release caps prazosin 1 mg capsule 3 mg PO BEDTIME 30 days #90 caps 11/21/24 promethazine 25 mg tablet 12.5 mg (1/2 x 25 mg) PO BID 30 11/21/24 days #30 tabs venlafaxine 37.5 mg 112.5 mg (3 x 37.5 mg) PO DA FELIBERTO 30 11/21/24 capsule,extended release 24 hr days #90 caps Mental Status Exam Mental Status Exam Narrative: Pt is alert and oriented; behavior is cooperative and calm; dressed in casual attire; mood is described as good ; eye contact appropriate; Speech is normal rate, volume and not pressured; thought process is organized; Thought content is on discharge; denies SI/HI/VH/AH. Data Data Completed and Pending Completed studies during hospitalization [Text1]: 11/14/24 11/20/24 15:35 07:33 Sodium 144 142 Potassium 4.3 3.9 Chloride 108 107 Carbon Dioxide 28 27 Anion Gap 12 12 BUN 11 12 Creatinine 1.00 0.93 Estim Creat Clear Calc 156.9 172.0 Estimated GFR > 60 > 60 [place] 0.44 L 0.77 11/06/24 Unknown Urine clean catch - Clean Catch Midstream Urine Culture - Final No growth. DS: Summary Hospital Course Hospital Course: Patient is a 24-year-old male with history of MDD, DELGADO, PTSD, opiate use disorder who self presented to [facility] due to suicidal ideation with a plan to overdose on substances secondary to increased depression, panic attacks and paranoia. Per crisis report, patient reports increase in depression, anxiety, panic attacks and paranoia. He reports feeling suicidal for 1 week and recently thought of a plan. Patient reports wanting to stay sober and stating, if I have to continue on like this, I will use and I will try to kill myself . denies HI/VH/AH. Patient reports isolating to his room for 1 week. Patient reports his agoraphobia and panic attacks have been debilitating lately . Patient reports he has been vomiting up to 20 times a week secondary to panic attacks. He reports being medication compliant. Patient has outpatient providers through [facility]. During admission assessment, patient presents alert and oriented x3. Calm and cooperative. Patient reports feeling anxious and depressed ; patient stated, My agoraphobia and panic disorder makes me feel hopeless. It's making me suicidal. I try to think about the positive and my family . Patient reports suicidal ideation with plan to overdose on substances. Denies HI/VH. He reports hearing auditory hallucinations at times. Patient stated, sometimes I hear voices in the vent; the last time was 2 days ago . He reports vomiting/dry heaving multiple times a week due to panic attacks. Sleep and appetite are poor. Patient reports feeling safe in the hospital and his goal is to work on being more functional. Patient reports he may be interested in attending PHP. Plan: CV 15 minute safety checks Obtain collateral Continue home medications Encourage groups Referral to PHP? Discharge planning Patient continues to report feeling anxious today; focused on increasing benzodiazepines. He reports not taking his medications daily as prescribed. [place] level 0.49 on 11/08/24. Pt educated regarding importance of medication compliance. Remeron increased to 30mg PO bedtime. He denies having nightmares last night. Denies vomiting yesterday and has not yet today. Pt reports he does not want to return to his friends apartment and would like to be discharged to a longterm when ready. denies SI/HI/VH/AH. Isolating in room. Patient continues to report feeling anxious; pt stated, it's nothing in particular that makes me anxious . Denies vomiting yesterday and today. Passive SI with no plan or intent. denies HI/VH/AH. per nursing, slept 7 hours. Continue current tx plan. Patient continues to report feeling anxious and depressed; he is requesting his klonopin to be TID; dose changed to klonopin 1mg PO daily, and 0.5mg PO BID@15,00, 2100; pt aware. He reports feeling hopeful ; pt stated, when I'm in the hospital my stomach is fine. I'm trying to be hopeful. 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 I just get down on myself because of my anxiety . denies SI/HI/VH/AH. [place] level to be redrawn on 11/14/24. Pt reports he plans on showering today. Active on unit. attending groups. Patient reports feeling better ; pt stated, I feel like my anxiety is better with having the klonopin three times a day . showered. per nursing, slept 8 hours. denies SI/HI/VH/AH. Plan to discharge on Thursday if continues to improve; pt aware. requested inc compazine today- thought it was thorazine- will clarify with pt tomorrow promethazine or compazine- either doesn't seem warranted? I did inc frequency of thorazine to tid from bid, and the other 2 are prn for n ausea/gi around anxiety- however I again inc thorazine to qid today- only at 25mg- Active on unit, social with peers. attending groups. Patient reports feeling anxious d/t not wanting to go to a longterm . floor worker well service reports, pt was declined from respite. Pt reports his parents will not allow him to stay at their homes. focused on discharge. declined labs despite education. denies SI/HI/VH/AH. Continue current tx plan. Patient continues to reports feeling anxious and depressed ; lithium level 0.44 on 11/14/24. [place] dose increased to 1,200mg PO bedtime; pt aware. denies SI/HI/VH/AH. Continue current tx plan. Active on unit, social with peers. attending groups. Pt reports feeling a little better today; pt reports he plans on applying to go to the [facility] in [place], [place] or going to the longterm in [place] when discharged. denies SI/HI/VH/AH. Continue current tx plan. Active on unit, social with peers. attending groups. Pt reports feeling okay ; pt stated, I'm not depressed. I'm just feeling anxious today . showered. denies SI/HI/VH/AH. pt reports poor sleep last night d/t nightmares; requesting increase in Prazosin. Dose increased to 3mg PO bedtime. DC clonidine 0.1mg PO bedtime DC zyprexa 5mg PO Q4HR PRN Pt reports feeling good ; focused on discharge. pt stated, I feel ready to go on Thursday. I'm just anxious about it . Pt reports he plans on going to the longterm in [place], [place]. denies SI/HI/VH/AH. Labs to be drawn on Thursday11/18/24. Continue current tx plan. Active on unit, social with peers. laughing and joking. Patient reports feeling good ; denies SI/HI/VH/AH. [place] level 0.77 on 11/20/24. Pt reports he plans on following up with his outpatient providers. Status at Discharge Cognitive/behavioral status at discharge: Patient has insight and demonstrates good judgment in terms of wanting to pursue treatment. Patient has a safety plan that includes presenting to the closest ER or calling 911 if feeling unsafe. Functional status at discharge: independent ambulation Overall status at discharge: patient is back to baseline Time Spent with Patient Time attestation: Total time managing care of this patient today _20___ minutes. Time spent: Less than 30 minutes Discharge Plan Discharge Anticipated Discharge Date/Time: 11/21/24 10:00 Patient Disposition: Home, Self-Care Discharge Diagnosis: MDD, PTSD, Panic d/o, opioid use d/o Referrals: Roberto Waters ([facility]) [Other] - 11/21/24 1:00 pm Referral Note: In person appointment [facility] [Provider Group] - 1 Week Referral Note: 11-11-24 [facility] was added to patients chart. Please call [phone] to schedule a follow up appt within 7-10 days of discharge. No release or PCP on file. Discharge Medications: New prazosin 1 mg Capsule 3 mg PO BEDTIME 30 Days Qty: 90 0RF Protocol: Hold for SBP< HOLD for SBP < : 90 chlorpromazine 25 mg Tablet 25 mg PO QID 30 Days Qty: 120 0RF mirtazapine 30 mg Tablet 30 mg PO BEDTIME 30 Days Qty: 30 0RF lithium carbonate 300 mg Tablet Extended Release 1,200 mg PO BEDTIME 30 Days Qty: 120 0RF Continued methadone [Methadose] 10 mg/mL concentrate 165 mg PO DAILY@0800 Rx Instructions: Partial Fill upon patient request. doxepin 25 mg capsule 25 mg PO BEDTIME 30 Days Qty: 30 0RF clonazepam [Klonopin] 1 mg tablet 1 mg PO BID 7 Days Qty: 14 1RF omeprazole 20 mg Capsule,Delayed Release(Dr/Ec) 20 mg PO DAILY@0630 30 Days Qty: 30 0RF nicotine 21 mg/24 hr Patch 24 Hour 21 mg transdermal DAILY PRN (Reason: nicotine cravings) 28 Days Qty: 28 0RF Rx Instructions: remove at bedtime nicotine (polacrilex) 4 mg gum 4 mg buccal Q2H PRN (Reason: nicotine cravings) 30 Days Qty: 100 0RF Changed venlafaxine 37.5 mg capsule,extended release 24hr 112.5 mg PO DAILY 30 Days Qty: 90 0RF promethazine 25 mg tablet 12.5 mg PO BID 30 Days Qty: 30 0RF Discontinued lithium carbonate 300 mg tablet extended release 900 mg PO BEDTIME mirtazapine 30 mg tablet 15 mg PO BEDTIME chlorpromazine 25 mg tablet 25 mg PO BID PRN (Reason: nausea. severe anxiety) clonidine HCl 0.1 mg Tablet 0.1 mg PO BEDTIME 30 Days Qty: 30 0RF Protocol: Hold for SBP< HOLD for SBP < : 90 prazosin 2 mg capsule 2 mg PO BEDTIME 30 Days Qty: 30 0RF olanzapine 5 mg Tablet 5 mg PO TID PRN (Reason: mod to severe physical anxiety) 30 Days Qty: 60 0RF Discharge Orders: Discharge Order (Routine); Ordered 11/21/24 Ordered By: Yara Vincent Diet: Regular diet Activity on Discharge: As tolerated Stand Alone Forms: Patient Portal Discharge page, Community Support Print Language: Slovenian Care Plan Goals: Maintain mood and safe behaviors Take medications as prescribed Continue to pursue sobriety Practice coping skills Continue with outpatient providers and reach out to them as needed Health Concerns: Mood stability and behaviors Sobriety Plan of Treatment: Follow up with your PCP, psychiatric provider and other outpatient providers regarding above concerns Take medications as prescribed Assessment: Patient has insight and demonstrates good judgment in terms of wanting to pursue treatment. Patient has a safety plan that includes presenting to the closest ER or calling 911 if feeling unsafe. Discharge Date/Time: 11/21/24 09:45
[2024-11-21] MEDS: Naloxone HCl Nasal TAKE HOME 4 MG SPRAY 8 MG NOSTRILALT (09:20)
== END 2024-11-21 09:45 | disposition home or self-care (01) | DRG 885 ==
LOC: HO.ED 15:05 → HO.PADLT16 11-07 13:28
PROVIDERS: Physician Assistant; Admitting Provider Registered Nurse; Emergency Provider Emergency Medicine; Responsible Provider Registered Nurse; Visit Provider Psychiatry & Neurology Psychiatry
DX: F33.2 Major depressive disorder, recurrent severe without psychotic features (principal); F11.20 Opioid dependence, uncomplicated; R45.851 Suicidal ideations; F17.210 Nicotine dependence, cigarettes, uncomplicated; Z71.6 Tobacco abuse counseling; F43.10 Post-traumatic stress disorder, unspecified; F41.0 Panic disorder [episodic paroxysmal anxiety]; Z20.822 Contact with and (suspected) exposure to COVID-19; Z79.899 Other long term (current) drug therapy
CPT/HCPCS: 0241U; 36415; 80048; 80051; 80053; 80061; 80076; 80178; 80307; 81001; 82565; 83036; 83735; 84443; 84520; 85025; 87086; 93005; 99285; S9485

== ENCOUNTER → 2024-11-07 11:03 | Outpatient (BNV) | payer OTHER, SELFPAY | PROVIDERS: Admitting Provider Registered Nurse; Emergency Provider Emergency Medicine; Responsible Provider Registered Nurse; Visit Provider Internal Medicine Cardiovascular Disease | DX: R00.1 Bradycardia, unspecified (principal) | CPT/HCPCS: 93010 ==

== ENCOUNTER 2024-11-07 12:35 | Outpatient (BNV) | payer MEDICAID, SELFPAY | END 2024-11-13 13:01 | PROVIDERS: Admitting Provider Registered Nurse; Emergency Provider Emergency Medicine; Responsible Provider Registered Nurse; Visit Provider Internal Medicine Cardiovascular Disease | DX: Z13.6 Encounter for screening for cardiovascular disorders (principal) | CPT/HCPCS: 93010 ==

== ENCOUNTER → 2024-11-07 12:35 | Outpatient (BNV) | payer OTHER, SELFPAY | PROVIDERS: Admitting Provider Registered Nurse; Emergency Provider Emergency Medicine; Responsible Provider Registered Nurse; Visit Provider Registered Nurse | DX: F33.2 Major depressive disorder, recurrent severe without psychotic features (principal); F11.20 Opioid dependence, uncomplicated; F41.0 Panic disorder [episodic paroxysmal anxiety]; F43.11 Post-traumatic stress disorder, acute; R11.15 Cyclical vomiting syndrome unrelated to migraine | CPT/HCPCS: 90792; 99231; 99232 ==

== ENCOUNTER 2024-11-30 04:55 | Emergency (ER) | payer MEDICAID, SELFPAY ==
--- NOTE | 2024-11-30 | ECG_ITS ---
Test Reason : CHECK PROLONGED QT Blood Pressure : */* mmHG Vent. Rate : 85 BPM Atrial Rate : 85 BPM P-R Int : 170 ms QRS Dur : 88 ms QT Int : 374 ms P-R-T Axes : 47 68 48 degrees QTcB Int : 445 ms Normal sinus rhythm Nonspecific T wave abnormality Abnormal ECG When compared with ECG of 13-Nov-2024 13:01, No significant change was found Referred By: Pia Perkins Electronically Signed By: BHAKTI OSMAN MD
[2024-11-30 05:16] VITALS: BMI 39.3
[2024-11-30 05:33] VITALS: BP 145/85; PULSE 114; RESP 16; O2SAT 98
--- NOTE | 2024-11-30 05:53 | ED.PSYCH ---
HPI - Psych General Chief Complaint: Psychiatric Symptoms Stated Complaint: SI Time Seen by Provider: 11/30/24 05:25 Source: patient, EMS and old records reviewed Mode of arrival: EMS Limitations: no limitations History of Present Illness ED Provider: JERRY THURSTON Narrative: 24 yo male with opiate use disorder, cyclical vomiting, anxiety, bipolar who states he has been homeless, he is missing some medications but does not state which ones, he states he is injected heroin again. He denies any medical complaints but he reports he has SI. He states he needs to get it together. MD complaint: suicidal ideation, feels depressed and anxiety Onset (ago): week(s) Duration: constant History of same: Yes Relieving factors: none Exacerbating factors: drug use Context: recent drug abuse, not taking psychiatric medications and significant life stressor Associated psychiatric symptoms: depression and suicidal ideation Associated symptoms: denies other symptoms Treatments prior to arrival: none If self harm: admits thoughts of self harm Related Data Home Medications ?Medication ?Instructions ?Recorded ?Confirmed methadone 10 mg/mL oral 175 mg PO DAILY@0800 11/06/24 11/30/24 concentrate (Methadose) chlorpromazine 25 mg tablet 25 mg PO BID PRN Anxiety 11/30/24 11/30/24 clonazepam 1 mg tablet 1 mg PO BID PRN Anxiety 11/30/24 11/30/24 doxepin 25 mg capsule 25 mg PO BEDTIME 11/30/24 11/30/24 lithium carbonate 450 mg 450 mg PO BID 11/30/24 11/30/24 tablet,extended release mirtazapine 15 mg tablet 30 mg PO BEDTIME 11/30/24 11/30/24 omeprazole 20 mg capsule,delayed 20 mg PO DAILY 11/30/24 11/30/24 release prazosin 1 mg capsule 3 mg PO BEDTIME 11/30/24 11/30/24 promethazine 12.5 mg tablet 12.5 mg PO BID 11/30/24 11/30/24 venlafaxine 37.5 mg 112.5 mg PO DAILY 11/30/24 11/30/24 capsule,extended release 24 hr Previous Rx's ?Medication ?Instructions ?Recorded nicotine (polacrilex) 4 mg gum 4 mg buccal Q2H PRN nicotine 07/28/24 cravings 30 days #100 ea nicotine 21 mg/24 hr daily 21 mg transdermal DAILY PRN 07/28/24 transdermal patch nicotine cravings 28 days #28 ea Allergies Allergy/AdvReac Type Severity Reaction Status Date / Time No Known Allergies (No Known Allergy Verified 11/30/24 05:18 Allergies*) Review of Systems Review of Systems: Constitutional : No Fever, No Chills ENT/Mouth : No Ear Pain, No Nasal Congestion, No sore throat Eyes: No Eye Pain, No Swelling, No Redness Cardiovascular : No Chest Pain, No SOB Respiratory : No Cough, No Sputum, No Dyspnea Gastrointestinal : No Nausea, No Vomiting, No Diarrhea, No Hematochezia, No Melena Genitourinary : No Dysuria, No Urinary Frequency, No Hematuria Musculoskeletal : No Myalgias Skin : No Skin Lesions, No rash Neuro : No Weakness, No Numbness, No Paresthesias, No Dizziness, No Headache Psych : positive Anxiety, positive Depression, positive SI no HI All other systems reviewed and are negative PMFSH Past Medical History Attestation statement: The following information was validated with the patient. Source: old records reviewed Medical History Cyclical vomiting MDD (major depressive disorder), recurrent severe, without psychosis Severe mood disorder with psychotic features PTSD (post-traumatic stress disorder) Opioid use disorder, severe, on maintenance therapy Cannabis use disorder, severe, dependence Severe benzodiazepine use disorder Anxiety Depression Opioid use disorder Social History Social History Household Members: Other Household Members Other:: father Housing: Apartment Do you presently have visiting nurse or other home services: No Alcohol intake: former Patient Tobacco Use Status: Current everyday Tobacco user Tobacco use type: Cigarette Cigarette Packs Per Day: 1 Cigarettes Per Day: 20.0 Years Smoked: 10 e-Cigarette/Vaping Use: Currently Using Second Hand Smoke Exposure: No Substance Use Type: Marijuana, Opiates, Prescription Drugs and Caffiene Advance Directives: No Advance Directives Information Provided: No Do you have a plan to hurt others: No Plan service: No Sexual orientation: Straight/Heterosexual Physical Exam Vital Signs: Vital Signs: Last Vital Signs Temp 97.7 F 12/01/24 06:40 Pulse 81 12/01/24 06:40 Resp 16 12/01/24 06:40 BP 122/61 12/01/24 06:40 Pulse Ox 96 12/01/24 06:40 O2 Del Method Room Air 12/01/24 06:40 BMI result Body Mass Index 39.3 Appearance: Alert. Oriented X3. No acute distress. Eyes: Pupils equal, round and reactive to light. ENT: Pharynx normal. Neck: Normal inspection. Neck supple. CVS: Normal heart rate and rhythm. Pulses normal. Respiratory: No respiratory distress. Breath sounds normal. Abdomen: Soft and nontender. Skin: Skin warm and dry. Normal skin color. Normal skin turgor. Extremities: No lower extremity edema. RUE has contusion and bruise from IVDA but no abscess or cellulitis Neuro: Oriented X 3. No motor deficit. No sensory deficit. CN2-12 intact Course Course Course Narrative: Time: 21:36 Date: 11/30/24 Provider: Pia Pekrins, DO Patient in physician observation for psychiatric evaluation.? No acute events reported overnight. No current complaints. VS stable.? Patient is in bed search status..Will continue to monitor. Reevaluation(s) Reevaluation #1: CATALINA Herman: Patient to be transferred to [facility] for inpatient level of care, dual dx. Will go via ambulance at 12:00 12/01/24 Time: 11:27 Medications Administered Generic Name Dose Route Start Last Admin Trade Name Freq PRN Reason Stop Dose Admin Chlorpromazine HCl 25 mg 11/30/24 05:52 12/01/24 09:05 Chlorpromazine Hcl 25 Mg Tablet PO 25 mg BID PRN Administration Anxiety Clonazepam 1 mg 11/30/24 05:52 12/01/24 09:03 Clonazepam 1 Mg Tablet PO 1 mg BID PRN Administration Anxiety Doxepin HCl 25 mg 11/30/24 21:15 11/30/24 21:19 Doxepin Hcl 25 Mg Capsule PO 25 mg BEDTIME COLIN Administration [place] Carbonate 450 mg 11/30/24 09:00 12/01/24 09:04 [place] Carbonate Er 450 Mg Tablet.Er PO 450 mg BID COLIN Administration Methadone HCl 175 mg 11/30/24 08:00 12/01/24 09:00 Methadone Hcl 20 Mg/2 Ml Oral.Conc PO 175 mg DAILY@0800 COLIN Administration Nicotine 21 mg 11/30/24 05:52 12/01/24 09:11 Nicotine 21 Mg Patch.Td24 TRANSDERMA 21 mg DAILY PRN Administration Nicotine Cravings Nicotine Polacrilex 4 mg 11/30/24 21:05 12/01/24 09:12 Nicotine Polacrilex 2 Mg Gum BUCCAL 4 mg Q2H PRN Administration Nicotine Cravings Omeprazole 20 mg 12/01/24 06:30 12/01/24 05:17 Omeprazole 20 Mg Capsule.Dr PO 20 mg DAILY@0630 COLIN Administration Prazosin HCl 3 mg 11/30/24 21:15 11/30/24 21:19 Prazosin Hcl 1 Mg Capsule PO 3 mg BEDTIME COLIN Administration Protocol Promethazine HCl 12.5 mg 11/30/24 09:00 12/01/24 09:04 Promethazine Hcl 25 Mg Tablet PO 12.5 mg BID COLIN Administration Venlafaxine HCl 112.5 mg 11/30/24 09:00 12/01/24 09:04 Venlafaxine Hcl Er 37.5 Mg Cap.Er.24h PO 112.5 mg DAILY COLIN Administration Discontinued Medications Generic Name Dose Route Start Last Admin Trade Name Jossy PRN Reason Stop Dose Admin Mirtazapine 15 mg 11/30/24 21:00 11/30/24 20:21 Mirtazapine 15 Mg Tablet PO 15 mg BEDTIME COLIN Administration Mirtazapine 15 mg 11/30/24 21:30 11/30/24 21:31 Mirtazapine 15 Mg Tablet PO 11/30/24 21:31 15 mg ONCE ONE Administration Nicotine Polacrilex 2 mg 11/30/24 11:27 11/30/24 20:23 Nicotine Polacrilex 2 Mg Gum BUCCAL 2 mg Q2H PRN Administration Nicotine Cravings Medical Decision Making Medical Decision Making [facility] Narrative: 24 yo male with opiate use disorder, cyclical vomiting, anxiety, bipolar now here with c/o SI and depression with housing insecurity and not taking all of his medications. At this time will obtain labs and CARE team consult. Differential Diagnosis Differential Diagnoses: The differential diagnosis associated with the presentation includes depression, SI Admission/Observation Consideration of admission/observation: Escalation of care including admission/observation considered physician observation started at 632am Consult Healthcare Provider Management of the patient was discussed with: Behavioral Health Provider Lab Data [facility] Lab Attestation statement: I reviewed the patient's lab results. 11/30/24 06:24 Labs: Lab Results 11/30/24 11/30/24 Range/Units 06:24 06:24 WBC Cancelled RBC Cancelled Hgb Cancelled Hct Cancelled MCV Cancelled MCH Cancelled MCHC Cancelled RDW Cancelled Plt Count Cancelled MPV Cancelled Immature Gran % (Auto) Cancelled Neut % (Auto) Cancelled Lymph % (Auto) Cancelled [place] % (Auto) Cancelled Eos % (Auto) Cancelled Baso % (Auto) Cancelled Lymph # (Auto) Cancelled [place] # (Auto) Cancelled Eos # (Auto) Cancelled Baso # (Auto) Cancelled Abs Immat Gran (auto) Cancelled Absolute Neuts (auto) Cancelled Absolute Nucleated RBC Cancelled Nucleated RBC % (auto) Cancelled Sodium 140 (135-145) mmol/L Potassium 3.7 (3.3-5.1) mmol/L Chloride 105 (96-108) mmol/L Carbon Dioxide 25 (22-29) mmol/L Anion Gap 14 (12-20) BUN 12 (9-16) mg/dL Creatinine 1.17 (0.5-1.4) mg/dL Estim Creat Clear Calc 134.2 Estimated GFR > 60 Random Glucose 115 (60-115) mg/dL Calcium 9.4 (8.4-10.2) mg/dL Total Bilirubin 0.7 (0.0-1.0) mg/dL AST 56 H (5-37) U/L ALT 52 H (0-40) U/L Alkaline Phosphatase 75 (39-117) U/L Total Protein 7.5 (6.5-8.0) g/dL Albumin 4.8 (3.5-5.0) g/dL Urine Color Yellow Urine Appearance Clear Urine pH 6.0 (5.0-9.0) Ur Specific [place] 1.015 (1.005-1.025) Urine Protein Negative (Neg-Trace) mg/dL Urine Glucose (UA) Negative (Negative) mg/dL Urine Ketones Trace (Negative) mg/dL Urine Blood Negative (Negative) Urine Nitrite Negative (Negative) Ur Leukocyte Esterase Trace H (Negative) Urine RBC 0-2 (0-2) /HPF Urine WBC 0-5 (0-5) /HPF Ur Squamous Epith Cells 0-2 (0-2) /HPF Urine Bacteria None Seen (None Seen) Hyaline Casts 0-2 (0-2) /LPF Urine Opiates Screen POSITIVE H (Not Detect) Ur Buprenorphine Scrn Not Detected (Not Detect) ng/mL Ur Oxycodone Screen Not Detected (Not Detect) ng/mL Urine Methadone Screen Positive H (Not Detect) ng/mL Urine Fentanyl Screen POSITIVE H (Not Detect) Ur Barbiturates Screen Not Detected (Not Detect) Ur Phencyclidine Scrn Not Detected (Not Detect) Ur Amphetamines Screen POSITIVE H (Not Detect) U Benzodiazepines Scrn POSITIVE H (Not Detect) [place] 1.07 (0.60-1.20) mmol/L Urine Cocaine Screen POSITIVE H (Not Detect) U Marijuana (THC) Screen POSITIVE H (Not Detect) Ethyl Alcohol < 10 Cancelled mg/dL Independent Historian Clinical information obtained from an independent historian. History obtained from or confirmed by: EMS External Record Review External record reviewed: Inpatient record and Outpatient record Social Determinants Patient?s care significantly limited by Social Determinants of Health including: Inadequate housing and Problems related to primary support group Discharge Plan Discharge Clinical Impression: Suicidal ideation Patient Disposition: Xfer Psychiatric Hosp Transfer Details: to [facility] via ambulance at 12:00 Prescriptions: No Action methadone [Methadose] 10 mg/mL concentrate 175 mg PO DAILY@0800 Rx Instructions: Dose verified by Marco BAER, [facility] nicotine 21 mg/24 hr Patch 24 Hour 21 mg transdermal DAILY PRN (Reason: nicotine cravings) 28 Days Qty: 28 0RF Rx Instructions: remove at bedtime nicotine (polacrilex) 4 mg gum 4 mg buccal Q2H PRN (Reason: nicotine cravings) 30 Days Qty: 100 0RF venlafaxine 37.5 mg capsule,extended release 24hr 112.5 mg PO DAILY promethazine 12.5 mg tablet 12.5 mg PO BID clonazepam 1 mg tablet 1 mg PO BID PRN (Reason: Anxiety) lithium carbonate 450 mg tablet extended release 450 mg PO BID chlorpromazine 25 mg tablet 25 mg PO BID PRN (Reason: Anxiety) mirtazapine 15 mg tablet 30 mg PO BEDTIME omeprazole 20 mg Capsule,Delayed Release(Dr/Ec) 20 mg PO DAILY doxepin 25 mg capsule 25 mg PO BEDTIME prazosin 1 mg capsule 3 mg PO BEDTIME Interventions: Cameron-Suicide Risk Severity Scale Last Done: 12/01/24 05:29 Print Language: Romanian
--- NOTE | 2024-11-30 06:23 | HE.PHANOTE ---
METHADONE Pt last received 175mg on 11/29/24 @0800 at [facility] per BUFFY Lara. [phone]
--- NOTE | 2024-11-30 06:31 | PHA.MEDREC ---
Pharmacy Consult ? Medication Reconciliation Pharmacy has completed the medication reconciliation. checked med rec done by nursing. matched claim history
[2024-11-30 06:44] LABS: Lithium 1.07 mmol/L (0.60-1.20)
[2024-11-30 06:50] LABS: Cannabinoid Screen Urine POSITIVE (Not Detect)
[2024-11-30 06:51] LABS: Alanine Aminotransferase 52 U/L (0-40); Albumin Level 4.8 g/dL (3.5-5.0); Alkaline Phosphatase 75 U/L (39-117); Anion Gap 14 (12-20); Aspartate Amino Transferase 56 U/L (5-37); Blood Urea Nitrogen 12 mg/dL (9-16); Calcium 9.4 mg/dL (8.4-10.2); Carbon Dioxide 25 mmol/L (22-29); Chloride 105 mmol/L (96-108); Creatinine Clr Calc Pharmacy 134.2; Estimated Glomerular Filt Rate > 60; Potassium 3.7 mmol/L (3.3-5.1); Sodium 140 mmol/L (135-145); Total Protein 7.5 g/dL (6.5-8.0)
--- NOTE | 2024-11-30 07:00 | PC.NURSE ---
Assumed care of patient at 0645, patient appears to be in no apparent distress at this time, resting in bed, respirations even and unlabored. Continue plan of care for Care team paty
[2024-11-30] MEDS: methADONE HCl 20 MG/2 ML ORAL.CONC 175 MG PO (08:44)
[2024-11-30] MEDS: Venlafaxine HCl ER 37.5 MG CAP.ER.24H 112.5 MG PO (08:47)
[2024-11-30 08:59] VITALS: BP 122/69; PULSE 90; RESP 14; TEMP 36.8; O2SAT 96
--- NOTE | 2024-11-30 09:08 | PC.NURSE ---
Pt reporting increased anxiety and agitation, medicated with PRNs
--- OUTSIDE RECORDS SUMMARY | 2024-11-30 10:13 | XMS_ITS | Clinical Summary ---
Author Organization [facility] Address [address] [place] [address] Care Team Providers Care Broomcorn Thresher Name Role Phone Mykel Marquis MD Primary Care Provider [phone] Social History Tobacco Use Types Packs/Day Years [...] - 19+ 3-dose series) 2017 COVID-19 Vaccine (1 - 2023-2 5 season) 2024 Influenza (#1) 2025 Zoster (Shingrix) (1 of 2) 02/23/2048 Hep [...] age to complete this topic Insurance INACTIVE [facility] NAVIGATOR [facility] (POS) Care Teams Broomcorn Thresher Relationship Specialty Start Date End Date yMkel Marquis MD [address] [address] PCP - General Internal Medicine 10/04/19
--- OUTSIDE RECORDS SUMMARY | 2024-11-30 10:13 | XMS_ITS | Encounter Summary ---
Author Organization [facility] Address [address] [place] [address] Phone Care Team Providers Care Disk Sander Name Role Phone Amador Smith MD Primary Care Provider [phone] Encounter Details Date Type Department Care Team (Late st Contact Info) Description 12/09/2010 Conversion Encounter [facility] - [address] [address] Social History Tobacco Use Types Packs/Day Years [...] on filedocumented in this encounter Care Teams Disk Sander Relationship Specialty Start Date End Date Amador Smith MD [address] [place] [address] PCP - General 10/07/17 documented as of this encounter
[2024-11-30 12:43] LABS: Appearance Urine Clear; Glucose Urine UA Negative (Negative); PH 6.0 (5.0-9.0); Specific Gravity - Urine 1.015 (1.005-1.025); UMIC TRIGGER UA YES
--- NOTE | 2024-11-30 15:04 | MHC.CARE ---
Patient assessed by CARE team. It seems a Dual Diagnosis Inpatient unit is the best fit at this time. Passive SI plus polysubstance abuse. At time of writing andrew aware and accepting of this disposition, including the fact that most of these units are on the eastern part of the [facility] however have step down programming specific to dual dx within their hospital systems, potentially making the transition from inpatient to a [facility] or a partial hospital plus program more streamlined. Should patient request discharge while awaiting placement and be able to safety plan, discharge could be considered.
[2024-11-30 17:02] VITALS: BP 136/82; PULSE 98; RESP 18; TEMP 36.3; O2SAT 100
--- NOTE | 2024-11-30 17:25 | PC.NURSE ---
Pt has spent majority of the day sleeping, offering no complaints to this RN. Pt aware of plan of care for dual diagnosis bedsearch
[2024-11-30 20:23] VITALS: BP 124/82; PULSE 97; RESP 18; TEMP 36.3; O2SAT 97
[2024-11-30 21:19] VITALS: BP 124/82
[2024-12-01 06:40] VITALS: BP 122/61; PULSE 81; RESP 16; TEMP 36.5; O2SAT 96
[2024-12-01] MEDS: methADONE HCl 20 MG/2 ML ORAL.CONC 175 MG PO (09:00)
[2024-12-01] MEDS: Venlafaxine HCl ER 37.5 MG CAP.ER.24H 112.5 MG PO (09:04)
[2024-12-01] MEDS: Nicotine 21 MG PATCH.TD24 TRANSDERMA (09:11)
--- NOTE | 2024-12-01 09:14 | PC.NURSE ---
pt a&o, ambulating with steady gait, rr equal/non labored, pt medicated per order, pt requested prn medications as well, care team speaking with pt, plan of care ongoing
[2024-12-01] MEDS: Hydrocortisone 1 % Cream 28.35 GM TUBE 1 APPL TOPICAL (12:06)
[2024-12-01 12:43] VITALS: BP 121/66; PULSE 88; RESP 16; TEMP 36.2; O2SAT 97
== END 2024-12-01 12:49 ==
PROVIDERS: Emergency Medicine Emergency Medical Services; Emergency Provider Emergency Medicine
DX: F31.9 Bipolar disorder, unspecified (principal); R45.851 Suicidal ideations; F19.10 Other psychoactive substance abuse, uncomplicated; F41.9 Anxiety disorder, unspecified; F20.9 Schizophrenia, unspecified; F33.2 Major depressive disorder, recurrent severe without psychotic features; F41.0 Panic disorder [episodic paroxysmal anxiety]; F43.10 Post-traumatic stress disorder, unspecified; F12.20 Cannabis dependence, uncomplicated; R11.15 Cyclical vomiting syndrome unrelated to migraine; F11.20 Opioid dependence, uncomplicated; F17.210 Nicotine dependence, cigarettes, uncomplicated; Z59.00 Homelessness unspecified; Z79.899 Other long term (current) drug therapy
CPT/HCPCS: 36415; 80053; 80178; 80307; 81001; 93005; 99285; S9485

== ENCOUNTER → 2024-11-30 12:08 | Outpatient (BNV) | payer MEDICAID, SELFPAY | PROVIDERS: Emergency Provider Emergency Medicine; Visit Provider Internal Medicine Cardiovascular Disease | DX: R94.31 Abnormal electrocardiogram [ECG] [EKG] (principal); Z13.6 Encounter for screening for cardiovascular disorders | CPT/HCPCS: 93010 ==

== ENCOUNTER 2025-01-28 23:58 | Inpatient (IN) | payer MEDICAID, OTHER, SELFPAY ==
[2025-01-28 23:59] VITALS: BP 150/83; PULSE 102; RESP 18; TEMP 36.7; O2SAT 97; BMI 34.3
--- NOTE | 2025-01-29 | ECG_ITS ---
Test Reason : MED CLEARANCE Blood Pressure : */* mmHG Vent. Rate : 83 BPM Atrial Rate : 83 BPM P-R Int : 154 ms QRS Dur : 90 ms QT Int : 406 ms P-R-T Axes : 48 70 25 degrees QTcB Int : 477 ms Normal sinus rhythm Normal ECG When compared with ECG of 30-Nov-2024 12:08, No significant change was found Referred By: Generic ED Physician Electronically Signed By: NIDIA DONOHUE
--- NOTE | 2025-01-29 00:43 | MHC.EDTECH ---
pt provided little to no urine for UA sample. pt will attempt again after multiple paul rabago rn aware
--- NOTE | 2025-01-29 00:52 | PC.NURSE ---
Assumed care of pt, presents with suicidal ideation, pt stated he wanted overdose on his medication, pt was recently discharged from [facility] for lithum OD, aaox4, nad, pending Care team in the am
--- OUTSIDE RECORDS SUMMARY | 2025-01-29 00:58 | XMS_ITS | Clinical Summary ---
Author Organization [facility] Address [address] [place] [address] Care Team Providers Care Body Care Manager Name Role Phone Mykel Marquis MD Primary Care Provider [phone] Social History Tobacco Use Types Packs/Day Years [...] age to complete this topic Insurance INACTIVE [facility] NAVIGATOR [facility] (POS) Care Teams Body Care Manager Relationship Specialty Start Date End Date Mykel Marquis MD [address] [address] PCP - General Internal Medicine 10/04/19
--- OUTSIDE RECORDS SUMMARY | 2025-01-29 00:58 | XMS_ITS | Encounter Summary ---
Author Organization [facility] Address [address] [place] [address] Phone Care Team Providers Care Clothes Shaker Name Role Phone Amador Smith MD Primary Care Provider [phone] Reason for Visit * Reason Comments Med Refill Encounter Details Date Type Department Care Team (Late st Contact Info) Description 03/09/2018 Refill Pediatric And Adolescent Medicine - [address] [address] Amador Smith MD [address] [place] [address] Anxiety Social History Tobacco Use Types Packs/Day [...] unspecified documented in this encounter Care Teams Clothes Shaker Relationship Specialty Start Date End Date Amador Smith MD [address] [place] [address] PCP - General 10/07/17 documented as of this encounter
--- OUTSIDE RECORDS SUMMARY | 2025-01-29 00:58 | XMS_ITS | Clinical Summary ---
Author Organization [facility] Address [address] [address] Care Team Providers Care Landscape Manager Name Role Phone Unavailable Primary Care Provider Unavailabl e Social History Tobacco Use Types Packs/Day Years Used Date Smoking Tobacco: Never Assessed Sex and Gender Information Value Date Recorded Sex Assigned at Male 07/06/2021 2:38 AM EST Legal Sex Male 2:38 AM EST Gender Identity Not on file Sexual Orientation Not on file Last Filed Vital Signs Vital Sign Reading Time Taken Comments Blood Pressure - - Pulse - - Temperature 37.5 C (99.5 F) 12/04/2019 8:01 AM EDT Respiratory Rate 15 12/04/2019 10:34 AM EDT Oxygen Saturation 100% 12/04/2019 10:34 AM EDT Inhaled Oxygen Concentration - - Weight 91 kg (200 lb 9.9 oz) 12/04/2019 8:01 AM EDT Height 185 cm (6' 0.84 ) 12/04/2019 8:01 AM EDT Body Mass Index 26.59 12/04/2019 8:01 AM EDT Plan of Treatment Not on file
--- OUTSIDE RECORDS SUMMARY | 2025-01-29 00:58 | XMS_ITS | Clinical Summary ---
Author Organization [facility] Address [address] [place] [address] Phone Care Team Providers Care Vp Director Of Creative Strategy Name Role Phone Pcp, Unknown Primary Care Provider Unavailabl e Encounters Date Type Department Care Team Description 11/24/2024 Documentation MGB Value Based Care [address] [place] [address] Michelle Carlin, [facility] from Last 3 Months Social History Tobacco Use Types Packs/Day Years Used Date Smoking Tobacco: Never Assessed Education Answer Date Recorded Are you interested in more education? Not on laura e 09/24/2023 Are you concerned about learning? Not on file 09/24/2023 No 09/24/2023 No 09/24/2023 Digital Access Answer Date Recorded No 09/24/2023 No 09/24/2023 Reliable internet access at home? Not on file 09/24/2023 Device with a working camera? Not on file Sex and Gender Information Value Date Recorded Sex Assigned at Not on file Legal Sex Male 10:10 AM EDT Gender Identity Not on file Sexual Orientation Not on file Plan of Treatment Upcoming Encounters Date Type Department Care Team (Late st Contact Info) Description 02/20/2025 11:30 AM EDT Office Visit [facility] [address] [place] [address] Venkata Yoo, DO [address], [address] [place] [address] [email or web address] Health Maintenance Due Date Last Done Comments Adult Td,Tdap Booster 1998 DEPRESSION SCREENING 2010 SMOKING Hx and SMOKELESS TOB ACCO SCREENING 2011 HPV VACCINES (1 - Male 3-dos e series) 2013 HEPATITIS C SCREENING 02/23/2016 HIV ONE-TIME SCREENING (18-6 5 YEARS) 02/23/2016 COVID-19 VACCINE (2023-2 5 season) 2024 HEPATITIS A VACCINES Aged Out No long er eligible based on patient's age to complete this topic HIB VACCINES Aged Out No longer eligi ble based on patient's age to complete this topic MENINGOCOCCAL VACCINES (ACWY) Aged Out No longer eligible based on patient's age to complete this topic MENINGOCOCCAL VACCINES (B) Aged Out N o longer eligible based on patient's age to complete this topic PNEUMOCOCCAL VACCINES (0-49 years) Aged Out No longer eligible based on patient's age to complete this topic Medical Devices Not on file Insurance [facility] [place] [address] [place] [address] ACO [facility] ACO Care Teams Vp Director Of Creative Strategy Relationship Specialty Start Date End Date Pcp, Unknown PCP - General 12/08/24 Additional Source Comments The information contained in this document represents components of the legal health record. It is not the complete legal health record.[facility]
--- OUTSIDE RECORDS SUMMARY | 2025-01-29 00:58 | XMS_ITS | Encounter Summary ---
Author Organization [facility] Address [address] [place] [address] Phone Care Team Providers Care Chisel Worker Name Role Phone Amador Smith MD Primary Care Provider [phone] Encounter Details Date Type Department Care Team (Late st Contact Info) Description 12/09/2010 Conversion Encounter Pediatric And Adolescent Medicine - [address] [address] Social History Tobacco Use Types Packs/Day Years [...] on filedocumented in this encounter Care Teams Chisel Worker Relationship Specialty Start Date End Date Amador Smith MD [address] [place] [address] PCP - General 10/07/17 documented as of this encounter
--- OUTSIDE RECORDS SUMMARY | 2025-01-29 00:58 | XMS_ITS | Clinical Summary ---
Author Organization [facility] Address [address] [place] [address] Phone Care Team Providers Care Boot And Shoe Laborer Name Role Phone Amador Smith MD Primary Care Provider [phone] Allergies No known active allergies Medications clonazePAM [...] 79 01/13/2018 3:27 PM EDT Temperature 36.8 C (98.3 F) 07/20/2013 4:38 PM EST Respiratory Rate - - Oxygen Saturation 98% [...] 04/30/2020 04/30/2010, 03/07/2003, 08/27/1999, Additional history exists COVID-19 Vaccine ( season) 2024 Influenza Vaccines (#1) 2024 03/02/20 14, 06/24/2013, 02/11/2012, Additional history exists Hepatitis B Vaccines Completed 1998, 1998, 1998 [...] to complete this topic Insurance [employer] [place] [id number] Care Teams Boot And Shoe Laborer Relationship Specialty Start Date End Date Amador Smith MD [address] [facility] [place] [address] PCP - General 10/07/17
[2025-01-29 01:34] LABS: Alanine Aminotransferase 50 U/L (0-40); Albumin Level 4.9 g/dL (3.5-5.0); Alkaline Phosphatase 87 U/L (39-117); Anion Gap 17 (12-20); Aspartate Amino Transferase 68 U/L (5-37); Blood Urea Nitrogen 12 mg/dL (9-16); Calcium 9.3 mg/dL (8.4-10.2); Carbon Dioxide 19 mmol/L (22-29); Chloride 107 mmol/L (96-108); Creatinine Clr Calc Pharmacy 125.4; Estimated Glomerular Filt Rate > 60; Magnesium 2.0 mg/dL (1.6-2.6); Potassium 3.0 mmol/L (3.3-5.1); Sodium 140 mmol/L (135-145); Total Protein 7.3 g/dL (6.5-8.0)
[2025-01-29 01:36] LABS: Acetaminophen LAB < 3 mcg/mL (<30); Salicylate < 5.0 mg/dL (15-30)
[2025-01-29 01:45] LABS: Appearance Urine Clear; Glucose Urine UA Negative (Negative); PH 6.0 (5.0-9.0); Specific Gravity - Urine >= 1.030 (1.005-1.025); UMIC TRIGGER UACC YES
[2025-01-29 01:49] LABS: Lithium < 0.10 mmol/L (0.60-1.20)
[2025-01-29 01:53] LABS: Cannabinoid Screen Urine POSITIVE (Not Detect)
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
[2025-01-29 03:42] LABS: MANUAL DIFF FLAG NO
[2025-01-29 03:43] LABS: Hematocrit 38.2 % (42.0-52.0); Hemoglobin 13.2 g/dl (14.0-18.0); Imm Gran Abs Auto 0.04 X10*3/uL (0.00-0.03); Imm Gran Pct Auto 0.3 % (0.0-0.4); Lymphocytes Absolute Auto 2.9 X10*3/uL (1.2-4.9); Mean Corpuscular HGB Conc 34.6 g/dl (31.0-36.0); Mean Corpuscular Hemoglobin 29.5 pg (27.0-33.0); Mean Corpuscular Volume 85.5 fL (80.0-98.0); NRBC Abs Auto 0.000 X10*3/uL (0.0-0.012); NRBC Pct Auto 0.0 /100WBC (0.0-0.2); Platelet Count 182 X10*3/uL (160-400); Red Blood Count 4.47 X10*6/uL (4.60-5.80); White Blood Count 12.1 X10*3/uL (4.8-10.8)
--- NOTE | 2025-01-29 07:40 | PC.NURSE ---
Addendum entered by Marina Topete RN 01/29/25 13:55: He reports he was discharged from [facility] yesterday and does not feel well ?mentally?. Patient?s mood is depressed, affect is tearful and he presents as helpless/hopeless. He reports he had a friend given him a ride to [facility] ED today as he is feeling suicidal, having panic attacks, anxiety and that he has ?really not been doing well the past few weeks?. He states his suicidal thoughts have ?really ramped up? and reports he took 80 (450 mg) tabs of [place] three days ago intentionally to kill self and was medically admitted to [facility] for [place] toxicity. He reports plan and intent to kill self via ?slicing his wrists?. He reports his sleeping and appetite is ?all messed up?. Thought process and though content is clear and organized, he states ?I?m not minimizing my substance use but currently getting mental health treatment is a priority for me?. He also reports audio hallucinations of ?faint conversations and feels like people are talking about me?. He reported visual hallucinations. Patient does not appear to be responding to any internal stimuli currently. His insight and judgment are fair; impulse control has been good. Patient has declined dual diagnosis treatment currently stating, I have been here to before and got better treatment?. Patient is voluntary for inpatient psychiatric admission and requesting to go to [facility] M5 unit for treatment. Addendum entered by Marina Topete RN 01/29/25 07:42: Pending CARE team paty. Addendum entered by Marina Topete RN 01/29/25 07:41: Patient is 24-year-old male with extensive psychiatric history including PTSD, major depressive disorder, bipolar disorder with schizophrenic features, polysubstance use disorder presenting with suicidal ideations, depressive thoughts ongoing for the last 24 hours after being discharged from [facility] yesterday. States he was admitted for lithium toxicity but isn't sure if he overdosed or not. Admits he has been feeling depressed since one of his roommates overdosed and . Plan to overdose on all of his medications in an attempt to kill himself. Admits to multiple substance use over the last 24 hours including cocaine, heroin, fentanyl, methadone, marijuana Original Note: Medical History Cyclical vomiting MDD (major depressive disorder), recurrent severe, without psychosis Severe mood disorder with psychotic features PTSD (post-traumatic stress disorder) Opioid use disorder, severe, on maintenance therapy Cannabis use disorder, severe, dependence Severe benzodiazepine use disorder Anxiety Depression Opioid use disorder
--- NOTE | 2025-01-29 07:56 | PC.NURSE ---
Methadone verified at [facility] and faxed to pharmacy
--- NOTE | 2025-01-29 08:01 | HE.PHANOTE ---
METHADONE Dose: 205mg, last dosed 01/28/[address] Saad [address] [facility]. Pt given 2 take home bottles.
[2025-01-29 08:34] VITALS: BP 146/86; PULSE 65; RESP 16; TEMP 36.8; O2SAT 100
[2025-01-29] MEDS: methADONE HCl 20 MG/2 ML ORAL.CONC 205 MG PO (09:59)
[2025-01-29 15:52] VITALS: BP 122/50; PULSE 65; RESP 16; TEMP 36.8; O2SAT 97
[2025-01-29 20:30] VITALS: BP 115/62; PULSE 58; RESP 20; TEMP 36.4; O2SAT 97
[2025-01-29 21:20] VITALS: BP 115/62
[2025-01-30] MEDS: Venlafaxine HCl ER 150 MG CAP.ER.24H PO (08:12)
[2025-01-30] MEDS: methADONE HCl 20 MG/2 ML ORAL.CONC 205 MG PO (08:14)
--- NOTE | 2025-01-30 10:14 | PC.NURSE ---
Assumed care and report received. Pt is compliant with meds and breakfast. He reports high anxiety and utilizes PRN meds with moderate effect. He reports passive SI. He spends time watching TV, talking with staff and peers and walking the unit
--- NOTE | 2025-01-30 14:23 | PHA.MEDREC ---
Pharmacy Consult ? Medication Reconciliation Pharmacy has completed the medication reconciliation. Completed by nursing, reviewed by pharmacy
[2025-01-30 20:05] VITALS: BP 125/65; PULSE 56; RESP 16; TEMP 36.6; O2SAT 98
[2025-01-30 20:08] VITALS: BP 125/65
--- NOTE | 2025-01-31 03:26 | PC.NURSE ---
medicated per mar.
--- NOTE | 2025-01-31 03:57 | PC.NURSE ---
pt complaining he has a blister on his butt, He popped the blister with a paper towel, will like a doctor to look at in am.
--- NOTE | 2025-01-31 04:05 | PC.NURSE ---
pt given two drinks per request after going to the bathroom
--- NOTE | 2025-01-31 05:07 | PC.NURSE ---
provider into to assess blister in buttocks,
--- NOTE | 2025-01-31 06:53 | PC.NURSE ---
pt does not want Potassium pills at this time.
--- NOTE | 2025-01-31 07:37 | PC.NURSE ---
Assumed care, report received. Pt is currently sleeping, safety maintained.
[2025-01-31 07:49] VITALS: BP 128/90; PULSE 78; RESP 16; TEMP 36.6; O2SAT 100
[2025-01-31] MEDS: Venlafaxine HCl ER 150 MG CAP.ER.24H PO (08:11)
[2025-01-31] MEDS: Potassium Chloride ER 20 MEQ TAB.ER.PRT 40 MEQ PO (08:11)
[2025-01-31] MEDS: methADONE HCl 20 MG/2 ML ORAL.CONC 205 MG PO (08:12)
[2025-01-31 14:07] VITALS: BP 123/84; PULSE 74; RESP 18; TEMP 36.8; O2SAT 100
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
[2025-01-31 14:59] VITALS: BMI 36.6
--- NOTE | 2025-01-31 15:49 | PC.ADMIT ---
Jeremy is a 27y/o sri lankan speaking male admitted from the [facility] pod for treatment of? MDD with SI. Pt recently found his roommate from an overdose in his apartment. Pt reports he was in [facility] where he was treated for [place] toxicity and Rhabdomyolysis and released 6 days ago. He reports taking 80-450mg tabs of Katie. ALYSIA level here on 01/29 was 0.10. Pt returned home for 24 hrs, used substances and then came to the [facility] ED. Pts tox screen was positive for fentanyl, methadone opiates, cocaine and THC. Pt reports IV drug use with cocaine and heroin. Pt?s mood is depressed with a congruent affect. Pt is A&O X4, remained focused during the meeting, and his thought process was linear. Pt reports that he has been having AH and has been paranoid that people are talking about him. Pt has been having feelings of hopelessness, helplessness and increased depression. Pt denies SI/HI at this time with no plans to harm himself. Pt reports coming to the hospital because he feels life is worth living now. Pt is reporting sleep disturbances, with difficulty staying asleep. Pt reports denies any weight gain or loss. Pt denies and has no acute medical concerns. Pts goal is to stabilize his mood and get into a treatment program following discharge. Pt is concerned that he will not be allowed back in the apartment. Pt placed on 15 minute safety checks.
[2025-01-31 20:00] VITALS: BP 116/72; PULSE 63; RESP 18; TEMP 36.9; O2SAT 97
[2025-02-01 07:10] VITALS: BP 122/79; PULSE 71; RESP 16; TEMP 36.8; O2SAT 99
[2025-02-01] MEDS: methADONE HCl 20 MG/2 ML ORAL.CONC 205 MG PO (07:56)
[2025-02-01] MEDS: Nicotine 21 MG PATCH.TD24 TRANSDERMA (08:30)
[2025-02-01] MEDS: Venlafaxine HCl ER 150 MG CAP.ER.24H PO (08:32)
[2025-02-01 08:41] LABS: MANUAL DIFF FLAG NO
[2025-02-01 08:46] LABS: Hematocrit 38.3 % (42.0-52.0); Hemoglobin 13.2 g/dl (14.0-18.0); Imm Gran Abs Auto 0.02 X10*3/uL (0.00-0.03); Imm Gran Pct Auto 0.4 % (0.0-0.4); Lymphocytes Absolute Auto 1.8 X10*3/uL (1.2-4.9); Mean Corpuscular HGB Conc 34.5 g/dl (31.0-36.0); Mean Corpuscular Hemoglobin 30.1 pg (27.0-33.0); Mean Corpuscular Volume 87.2 fL (80.0-98.0); NRBC Abs Auto 0.000 X10*3/uL (0.0-0.012); NRBC Pct Auto 0.0 /100WBC (0.0-0.2); Platelet Count 167 X10*3/uL (160-400); Red Blood Count 4.39 X10*6/uL (4.60-5.80); White Blood Count 4.9 X10*3/uL (4.8-10.8)
[2025-02-01 08:53] LABS: Hemoglobin A1C 105.9741 umol/L; Total Hemoglobin (HGBA1C) 3398.7718 umol/L
[2025-02-01 09:02] LABS: Alanine Aminotransferase 39 U/L (0-40); Albumin Level 4.7 g/dL (3.5-5.0); Alkaline Phosphatase 86 U/L (39-117); Anion Gap 12 (12-20); Aspartate Amino Transferase 41 U/L (5-37); Blood Urea Nitrogen 14 mg/dL (9-16); Calcium 9.1 mg/dL (8.4-10.2); Carbon Dioxide 25 mmol/L (22-29); Chloride 107 mmol/L (96-108); Cholesterol 167 mg/dL (<200); Creatinine Clr Calc Pharmacy 174.8; Estimated Glomerular Filt Rate > 60; HDL Cholesterol 31 mg/dL (>40); Potassium 4.2 mmol/L (3.3-5.1); Sodium 140 mmol/L (135-145); Total Protein 7.0 g/dL (6.5-8.0); Triglycerides 271 mg/dL (<150)
[2025-02-01 11:43] LABS: HBS Num1 1.33 mIU/mL (0-7.99); HBc Num1 0.11 S/CO (0.00-0.79); HBsAGNum1 0.56 S/CO (0.00-0.99); HIV Num 1 0.08 S/CO (0.00-0.99); Hepatitis A Antibody IgM 0.17 Index (0-0.79); Hepatitis B Surface Antigen Negative (Negative); ~HepC Num1 0.15 S/CO (0.00-0.79); ~Hepatitis A Antibody IgM Nonreactive (Nonreactive); ~Hepatitis B Surface Antibody NONREACTIVE (Nonreactive); ~Hepatitis C Antibody Nonreactive (Nonreactive)
--- NOTE | 2025-02-01 15:22 | HO.PSYCHPN ---
Subjective Subjective Date of Service: 02/01/25 Reason For Visit: crisis Subjective Notes: Conditional Voluntary Interim History: Active on unit. social with peers. Patient reports feeling anxious about everything. Life ; he reports suicidal ideation with no plan. Continues to report paranoia of people talking about me . denies HI/VH/AH. Pt reports not sleeping well last night; per nursing, slept 6 hours. pt requested HIV and hepatitis panel which was ordered. Added; thorazine 50mg PO bedtime PRN Medication Compliance: Yes Side effects from medications: No Attending Groups: Yes Mental Status Exam Mental Status Exam Narrative: Pt is alert and oriented; behavior is cooperative and calm; dressed in casual attire; mood is described as depressed ; eye contact appropriate; Speech is normal rate, volume and not pressured; thought process is organized; Thought content is on tx;paranoid ideations; denies HI/VH/AH. Pt reports suicidal ideation with no plan. Diagnostics Vital Signs (24Hr): Vital Signs - 24 hr 01/31/25 20:00 02/01/25 07:10 Temperature 98.5 F 98.2 F Pulse Rate 63 71 Respiratory Rate 18 16 Blood Pressure 116/72 122/79 Pulse Oximetry 97 99 Oxygen Delivery Method Room Air Room Air BMI result Body Mass Index 36.6 Labs 02/01/25 08:21 02/01/25 08:21 Labs: Laboratory Results - last 48 hr 02/01/25 02/01/25 08:21 11:01 WBC 4.9 RBC 4.39 L Hgb 13.2 L Hct 38.3 L MCV 87.2 MCH 30.1 MCHC 34.5 RDW 12.4 Plt Count 167 MPV 11.6 Immature Gran % (Auto) 0.4 Neut % (Auto) 47.5 Lymph % (Auto) 36.7 Reynolds % (Auto) 8.1 Eos % (Auto) 5.5 H Baso % (Auto) 1.8 Lymph # (Auto) 1.8 Reynolds # (Auto) 0.4 Eos # (Auto) 0.3 Baso # (Auto) 0.1 Abs Immat Gran (auto) 0.02 Absolute Neuts (auto) 2.3 Absolute Nucleated RBC 0.000 Nucleated RBC % (auto) 0.0 Sodium 140 Potassium 4.2 D Chloride 107 Carbon Dioxide 25 Anion Gap 12 BUN 14 Creatinine 0.89 Estim Creat Clear Calc 174.8 Estimated GFR > 60 Random Glucose 99 Estimat Average Glucose 97 Hemoglobin A1c % 5.0 Calcium 9.1 Total Bilirubin 0.2 AST 41 H ALT 39 Alkaline Phosphatase 86 Total Protein 7.0 Albumin 4.7 Triglycerides 271 H Cholesterol 167 LDL Cholesterol, Calc 82 HDL Cholesterol 31 L Hepatitis A IgM Ab Nonreactive Hep Bs Antigen Negative Hep Bs Antibody NONREACTIVE Hep B Core Total Ab Nonreactive Hepatitis C Ab (EIA) Nonreactive HIV 1&2 Ab/P24 Ag 4thGn Nonreactive Medications Medications Current Medications Acetaminophen (Acetaminophen 325 Mg Tablet) 650 mg PO Q6H PRN PRN Reason: Headache/Pain, Scale 1-10 Al Hydroxide/Mg Hydroxide (Magnesium Hydrox/Alum Hydrox 30 Ml Oral.Susp) 30 ml PO Q6H PRN PRN Reason: Heartburn/Nausea Chlorpromazine HCl (Chlorpromazine Hcl 25 Mg Tablet) 25 mg PO BID PRN PRN Reason: Anxiety Last Admin: 02/01/25 08:34 Dose: 25 mg Clonazepam (Clonazepam 1 Mg Tablet) 1 mg PO BID PRN PRN Reason: Anxiety Last Admin: 02/01/25 08:32 Dose: 1 mg Doxepin HCl (Doxepin Hcl 25 Mg Capsule) 25 mg PO BEDTIME [facility] Last Admin: 01/31/25 20:20 Dose: 25 mg Hydrocortisone (Hydrocortisone 1 % Cream 28.35 Gm Tube) 1 appl TOPICAL BID PRN; Protocol PRN Reason: Itching Hydroxyzine HCl (Hydroxyzine Hcl 50 Mg Tablet) 50 mg PO Q6H PRN PRN Reason: mild anxiety Magnesium Hydroxide (Milk Of Magnesia 30 Ml Oral.Susp) 30 ml PO DAILY PRN PRN Reason: Constipation Methadone HCl (Methadone Hcl 20 Mg/2 Ml Oral.Conc) 205 mg PO DAILY@0800 [facility] Last Admin: 02/01/25 07:56 Dose: 205 mg Mirtazapine (Mirtazapine 15 Mg Tablet) 45 mg PO BEDTIME [facility] Last Admin: 01/31/25 20:19 Dose: 45 mg Nicotine (Nicotine 21 Mg Patch.Td24) 21 mg TRANSDERMA DAILY [facility] Last Admin: 02/01/25 08:30 Dose: 21 mg Nicotine Polacrilex (Nicotine Polacrilex 2 Mg Gum) 4 mg BUCCAL Q2H PRN PRN Reason: Nicotine Cravings Last Admin: 09/03/25 10:34 Dose: 4 mg Omeprazole (Omeprazole 20 Mg Capsule.Dr) 20 mg PO DAILY@0630 [facility] Last Admin: 02/01/25 05:37 Dose: 20 mg Prazosin HCl (Prazosin Hcl 1 Mg Capsule) 3 mg PO BEDTIME [facility]; Protocol Last Admin: 01/31/25 20:21 Dose: 3 mg Promethazine HCl (Promethazine Hcl 25 Mg Tablet) 12.5 mg PO BID [facility] Last Admin: 02/01/25 08:32 Dose: 12.5 mg Trazodone HCl (Trazodone Hcl 50 Mg Tablet) 50 mg PO BEDTIME MRX1 PRN PRN Reason: Insomnia Venlafaxine HCl (Venlafaxine Hcl Er 150 Mg Cap.Er.24h) 150 mg PO DAILY [facility] Last Admin: 02/01/25 08:32 Dose: 150 mg Allergies Allergies Allergy/AdvReac Type Severity Reaction Status Date / Time No Known Allergies (No Known Allergy Verified 01/29/25 00:02 Allergies*) Assessment & Plan Assessment & Plan (1) MDD (major depressive disorder), recurrent severe, without psychosis: Status: Acute Code(s): F33.2 - Major depressive disorder, recurrent severe without psychotic features (2) Panic disorder: Status: Acute Code(s): F41.0 - Panic disorder [episodic paroxysmal anxiety] (3) PTSD (post-traumatic stress disorder): Status: Acute Code(s): F43.10 - Post-traumatic stress disorder, unspecified (4) Opioid use disorder, severe, on maintenance therapy: Status: Acute Code(s): F11.20 - Opioid dependence, uncomplicated (5) Cocaine use disorder: Status: Acute Code(s): F14.10 - Cocaine abuse, uncomplicated Plan Patient is a 24-year-old male with history of MDD, DELGADO, PTSD, opiate use disorder and, cocaine use d/o who self presented to [facility] ER due to suicidal ideation with a plan to overdose on his medications secondary to finding his roommate decreased recently. Plan: CV 15 minute safety checks Continue home medications Remeron increased to 45mg PO bedtime Obtain collateral Encourage groups Referral to substance abuse program Discharge planning 02/01: Active on unit. social with peers. Patient reports feeling anxious about everything. Life ; he reports suicidal ideation with no plan. Continues to report paranoia of people talking about me . denies HI/VH/AH. Pt reports not sleeping well last night; per nursing, slept 6 hours. pt requested HIV and hepatitis panel which was ordered. Added; thorazine 50mg PO bedtime PRN Patient educated on: diagnosis, medication risk/benefits and therapeutic strategies Reason for continued inpatient stay Substantial Risk for: harm to self and med/psych decompensation Time Spent With Patient Time: Total time managing care of this patient today _20___ minutes.
[2025-02-01] MEDS: Hydrocortisone 1 % Cream 28.35 GM TUBE 1 APPL TOPICAL (18:35)
[2025-02-01 20:00] VITALS: BP 123/74; PULSE 87; RESP 15; TEMP 36.3; O2SAT 98
[2025-02-02] MEDS: methADONE HCl 20 MG/2 ML ORAL.CONC 205 MG PO (08:00)
[2025-02-02] MEDS: Venlafaxine HCl ER 150 MG CAP.ER.24H PO (08:03)
[2025-02-02] MEDS: Nicotine 21 MG PATCH.TD24 TRANSDERMA (08:04)
[2025-02-02 08:11] VITALS: BP 139/87; PULSE 56; RESP 18; TEMP 36.4; O2SAT 99
--- NOTE | 2025-02-02 09:45 | P.PNPSI_ITS ---
Subjective Subjective Date of Service: 02/02/25 Reason For Visit: crisis Subjective Notes: Conditional Voluntary Interim History: Active on unit. social with peers. Patient reports feeling depressed; pt reports suicidal ideation with plan to either slit my wrist or shoot myself ; pt reports he does not have access to a gun. denies HI/VH. He reports auditory hallucinations telling me to leave . per nursing, slept 5 hours. Changed Thorazine 25mg PO BID PRN to scheduled. Medication Compliance: Yes Side effects from medications: No Attending Groups: Yes Mental Status Exam Mental Status Exam Narrative: Pt is alert and oriented; behavior is cooperative and calm; dressed in casual attire; mood is described as depressed ; eye contact appropriate; Speech is normal rate, volume and not pressured; thought process is organized; Thought content is on tx;paranoid ideations; denies HI/VH. Pt reports suicidal ideation to either slip my wrist or shoot myself . He reports auditory hallucinations telling him to leave. Diagnostics Vital Signs (24Hr): Vital Signs - 24 hr 02/01/25 20:00 02/02/25 08:11 Temperature 97.3 F 97.6 F Pulse Rate 87 56 Respiratory Rate 15 18 Blood Pressure 123/74 139/87 Pulse Oximetry 98 99 Oxygen Delivery Method Room Air Room Air BMI result Body Mass Index 36.6 Labs 02/01/25 08:21 02/01/25 08:21 Labs: Laboratory Results - last 48 hr 02/01/25 02/01/25 08:21 11:01 WBC 4.9 RBC 4.39 L Hgb 13.2 L Hct 38.3 L MCV 87.2 MCH 30.1 MCHC 34.5 RDW 12.4 Plt Count 167 MPV 11.6 Immature Gran % (Auto) 0.4 Neut % (Auto) 47.5 Lymph % (Auto) 36.7 [place] % (Auto) 8.1 Eos % (Auto) 5.5 H Baso % (Auto) 1.8 Lymph # (Auto) 1.8 [place] # (Auto) 0.4 Eos # (Auto) 0.3 Baso # (Auto) 0.1 Abs Immat Gran (auto) 0.02 Absolute Neuts (auto) 2.3 Absolute Nucleated RBC 0.000 Nucleated RBC % (auto) 0.0 Sodium 140 Potassium 4.2 D Chloride 107 Carbon Dioxide 25 Anion Gap 12 BUN 14 Creatinine 0.89 Estim Creat Clear Calc 174.8 Estimated GFR > 60 Random Glucose 99 Estimat Average Glucose 97 Hemoglobin A1c % 5.0 Calcium 9.1 Total Bilirubin 0.2 AST 41 H ALT 39 Alkaline Phosphatase 86 Total Protein 7.0 Albumin 4.7 Triglycerides 271 H Cholesterol 167 LDL Cholesterol, Calc 82 HDL Cholesterol 31 L Hepatitis A IgM Ab Nonreactive Hep Bs Antigen Negative Hep Bs Antibody NONREACTIVE Hep B Core Total Ab Nonreactive Hepatitis C Ab (EIA) Nonreactive HIV 1&2 Ab/P24 Ag 4thGn Nonreactive Medications Medications Current Medications Acetaminophen (Acetaminophen 325 Mg Tablet) 650 mg PO Q6H PRN PRN Reason: Headache/Pain, Scale 1-10 Al Hydroxide/Mg Hydroxide (Magnesium Hydrox/Alum Hydrox 30 Ml Oral.Susp) 30 ml PO Q6H PRN PRN Reason: Heartburn/Nausea Chlorpromazine HCl (Chlorpromazine Hcl 25 Mg Tablet) 25 mg PO BID PRN PRN Reason: Anxiety Last Admin: 02/02/25 08:03 Dose: 25 mg Chlorpromazine HCl (Chlorpromazine Hcl 25 Mg Tablet) 50 mg PO BEDTIME PRN PRN Reason: Insomnia Last Admin: 02/01/25 20:10 Dose: 50 mg Clonazepam (Clonazepam 1 Mg Tablet) 1 mg PO BID PRN PRN Reason: Anxiety Last Admin: 02/02/25 08:03 Dose: 1 mg Doxepin HCl (Doxepin Hcl 25 Mg Capsule) 25 mg PO BEDTIME [facility] Last Admin: 02/01/25 20:11 Dose: 25 mg Hydrocortisone (Hydrocortisone 1 % Cream 28.35 Gm Tube) 1 appl TOPICAL BID PRN; Protocol PRN Reason: Itching Last Admin: 02/01/25 18:35 Dose: 1 appl Hydroxyzine HCl (Hydroxyzine Hcl 50 Mg Tablet) 50 mg PO Q6H PRN PRN Reason: mild anxiety Last Admin: 02/01/25 20:11 Dose: 50 mg Magnesium Hydroxide (Milk Of Magnesia 30 Ml Oral.Susp) 30 ml PO DAILY PRN PRN Reason: Constipation Methadone HCl (Methadone Hcl 20 Mg/2 Ml Oral.Conc) 205 mg PO DAILY@0800 [facility] Last Admin: 02/02/25 08:00 Dose: 205 mg Mirtazapine (Mirtazapine 15 Mg Tablet) 45 mg PO BEDTIME [facility] Last Admin: 02/01/25 20:09 Dose: 45 mg Nicotine (Nicotine 21 Mg Patch.Td24) 21 mg TRANSDERMA DAILY [facility] Last Admin: 02/02/25 08:04 Dose: 21 mg Nicotine Polacrilex (Nicotine Polacrilex 2 Mg Gum) 4 mg BUCCAL Q2H PRN PRN Reason: Nicotine Cravings Last Admin: 02/02/25 09:15 Dose: 4 mg Omeprazole (Omeprazole 20 Mg Capsule.Dr) 20 mg PO DAILY@0630 [facility] Last Admin: 02/02/25 06:41 Dose: 20 mg Prazosin HCl (Prazosin Hcl 1 Mg Capsule) 3 mg PO BEDTIME [facility]; Protocol Last Admin: 02/01/25 20:11 Dose: 3 mg Promethazine HCl (Promethazine Hcl 25 Mg Tablet) 12.5 mg PO BID [facility] Last Admin: 02/02/25 08:01 Dose: 12.5 mg Trazodone HCl (Trazodone Hcl 50 Mg Tablet) 50 mg PO BEDTIME MRX1 PRN PRN Reason: Insomnia Venlafaxine HCl (Venlafaxine Hcl Er 150 Mg Cap.Er.24h) 150 mg PO DAILY [facility] Last Admin: 02/02/25 08:03 Dose: 150 mg Allergies Allergies Allergy/AdvReac Type Severity Reaction Status Date / Time No Known Allergies (No Known Allergy Verified 01/29/25 00:02 Allergies*) Assessment & Plan Assessment & Plan (1) MDD (major depressive disorder), recurrent severe, without psychosis: Status: Acute Code(s): F33.2 - Major depressive disorder, recurrent severe without psychotic features (2) Panic disorder: Status: Acute Code(s): F41.0 - Panic disorder [episodic paroxysmal anxiety] (3) PTSD (post-traumatic stress disorder): Status: Acute Code(s): F43.10 - Post-traumatic stress disorder, unspecified (4) Opioid use disorder, severe, on maintenance therapy: Status: Acute Code(s): F11.20 - Opioid dependence, uncomplicated (5) Cocaine use disorder: Status: Acute Code(s): F14.10 - Cocaine abuse, uncomplicated Plan Patient is a 24-year-old male with history of MDD, DELGADO, PTSD, opiate use disorder and, cocaine use d/o who self presented to [facility] due to suicidal ideation with a plan to overdose on his medications secondary to finding his roommate decreased recently. Plan: CV 15 minute safety checks Continue home medications Remeron increased to 45mg PO bedtime Obtain collateral Encourage groups Referral to substance abuse program Discharge planning 02/01: Active on unit. social with peers. Patient reports feeling anxious about everything. Life ; he reports suicidal ideation with no plan. Continues to report paranoia of people talking about me . denies HI/VH/AH. Pt reports not sleeping well last night; per nursing, slept 6 hours. pt requested HIV and hepatitis panel which was ordered. Added; thorazine 50mg PO bedtime PRN 02/02:Active on unit. social with peers. Patient reports feeling depressed; pt reports suicidal ideation with plan to either slit my wrist or shoot myself ; pt reports he does not have access to a gun. denies HI/VH. He reports auditory hallucinations telling me to leave . per nursing, slept 5 hours. Changed Thorazine 25mg PO BID PRN to scheduled. Patient educated on: diagnosis, medication risk/benefits and therapeutic strategies Reason for continued inpatient stay Substantial Risk for: harm to self and med/psych decompensation Time Spent With Patient Time: Total time managing care of this patient today _20___ minutes.
[2025-02-02 13:12] VITALS: BMI 36.4
[2025-02-02 19:46] VITALS: BP 135/80; PULSE 69; RESP 16; TEMP 36.7; O2SAT 99
[2025-02-03] MEDS: methADONE HCl 20 MG/2 ML ORAL.CONC 205 MG PO (07:41)
[2025-02-03 08:00] VITALS: BP 103/57; PULSE 68; RESP 16; TEMP 36.4; O2SAT 97
[2025-02-03] MEDS: Nicotine 21 MG PATCH.TD24 TRANSDERMA (08:06)
[2025-02-03] MEDS: Venlafaxine HCl ER 150 MG CAP.ER.24H PO (08:08)
--- NOTE | 2025-02-03 08:54 | HO.PSYCHPN ---
Subjective Subjective Date of Service: 02/03/25 Reason For Visit: crisis Subjective Notes: Conditional Voluntary Interim History: Pacing unit hallway. Patient continues to report feeling anxious and depressed; he reports suicidal ideation with plan to hang myself . Patient stated, I feel like I'm a burden to my family . Pt reports his father is trying to get him placed in a substance abuse program. denies HI/VH. He continues to report auditory hallucinations telling him to harm himself. Discussed starting on Latuda; risks/benefits reviewed, pt agreed to trial. Start: Latuda 20mg PO daily Medication Compliance: Yes Side effects from medications: No Attending Groups: Yes Mental Status Exam Mental Status Exam Narrative: Pt is alert and oriented; behavior is cooperative and calm; dressed in casual attire; mood is described as depressed ; eye contact appropriate; Speech is normal rate, volume and not pressured; thought process is organized; Thought content is on tx; denies HI/VH. Pt reports suicidal ideation to hang myself . He reports auditory hallucinations telling him to harm himself. Diagnostics Vital Signs (24Hr): Vital Signs - 24 hr 02/02/25 19:46 02/03/25 08:00 Temperature 98.1 F 97.5 F Pulse Rate 69 68 Respiratory Rate 16 16 Blood Pressure 135/80 103/57 L Pulse Oximetry 99 97 Oxygen Delivery Method Room Air Room Air BMI result Body Mass Index 36.4 Labs 02/01/25 08:21 02/01/25 08:21 Labs: Laboratory Results - last 48 hr 02/01/25 02/01/25 08:21 11:01 Sodium 140 Potassium 4.2 D Chloride 107 Carbon Dioxide 25 Anion Gap 12 BUN 14 Creatinine 0.89 Estim Creat Clear Calc 174.8 Estimated GFR > 60 Random Glucose 99 Calcium 9.1 Total Bilirubin 0.2 AST 41 H ALT 39 Alkaline Phosphatase 86 Total Protein 7.0 Albumin 4.7 Triglycerides 271 H Cholesterol 167 LDL Cholesterol, Calc 82 HDL Cholesterol 31 L Hepatitis A IgM Ab Nonreactive Hep Bs Antigen Negative Hep Bs Antibody NONREACTIVE Hep B Core Total Ab Nonreactive Hepatitis C Ab (EIA) Nonreactive HIV 1&2 Ab/P24 Ag 4thGn Nonreactive Medications Medications Current Medications Acetaminophen (Acetaminophen 325 Mg Tablet) 650 mg PO Q6H PRN PRN Reason: Headache/Pain, Scale 1-10 Al Hydroxide/Mg Hydroxide (Magnesium Hydrox/Alum Hydrox 30 Ml Oral.Susp) 30 ml PO Q6H PRN PRN Reason: Heartburn/Nausea Chlorpromazine HCl (Chlorpromazine Hcl 25 Mg Tablet) 50 mg PO BEDTIME PRN PRN Reason: Insomnia Last Admin: 02/02/25 20:16 Dose: 50 mg Chlorpromazine HCl (Chlorpromazine Hcl 25 Mg Tablet) 25 mg PO BID COLIN Last Admin: 02/03/25 08:08 Dose: 25 mg Clonazepam (Clonazepam 1 Mg Tablet) 1 mg PO BID PRN PRN Reason: Anxiety Last Admin: 02/03/25 07:47 Dose: 1 mg Doxepin HCl (Doxepin Hcl 25 Mg Capsule) 25 mg PO BEDTIME COLIN Last Admin: 02/02/25 20:13 Dose: 25 mg Hydrocortisone (Hydrocortisone 1 % Cream 28.35 Gm Tube) 1 appl TOPICAL BID PRN; Protocol PRN Reason: Itching Last Admin: 02/01/25 18:35 Dose: 1 appl Hydroxyzine HCl (Hydroxyzine Hcl 50 Mg Tablet) 50 mg PO Q6H PRN PRN Reason: mild anxiety Last Admin: 02/02/25 20:11 Dose: 50 mg Magnesium Hydroxide (Milk Of Magnesia 30 Ml Oral.Susp) 30 ml PO DAILY PRN PRN Reason: Constipation Methadone HCl (Methadone Hcl 20 Mg/2 Ml Oral.Conc) 205 mg PO DAILY@0800 [facility] Last Admin: 02/03/25 07:41 Dose: 205 mg Mirtazapine (Mirtazapine 15 Mg Tablet) 45 mg PO BEDTIME [facility] Last Admin: 02/02/25 20:12 Dose: 45 mg Nicotine (Nicotine 21 Mg Patch.Td24) 21 mg TRANSDERMA DAILY [facility] Last Admin: 02/03/25 08:06 Dose: 21 mg Nicotine Polacrilex (Nicotine Polacrilex 2 Mg Gum) 4 mg BUCCAL Q2H PRN PRN Reason: Nicotine Cravings Last Admin: 02/03/25 07:48 Dose: 4 mg Omeprazole (Omeprazole 20 Mg Capsule.Dr) 20 mg PO DAILY@0630 [facility] Last Admin: 02/03/25 06:11 Dose: 20 mg Prazosin HCl (Prazosin Hcl 1 Mg Capsule) 3 mg PO BEDTIME [facility]; Protocol Last Admin: 02/02/25 20:12 Dose: 3 mg Promethazine HCl (Promethazine Hcl 25 Mg Tablet) 12.5 mg PO BID [facility] Last Admin: 02/03/25 08:08 Dose: 12.5 mg Trazodone HCl (Trazodone Hcl 50 Mg Tablet) 50 mg PO BEDTIME MRX1 PRN PRN Reason: Insomnia Venlafaxine HCl (Venlafaxine Hcl Er 150 Mg Cap.Er.24h) 150 mg PO DAILY [facility] Last Admin: 02/03/25 08:08 Dose: 150 mg Allergies Allergies Allergy/AdvReac Type Severity Reaction Status Date / Time No Known Allergies (No Known Allergy Verified 01/29/25 00:02 Allergies*) Assessment & Plan Assessment & Plan (1) MDD (major depressive disorder), recurrent severe, without psychosis: Status: Acute Code(s): F33.2 - Major depressive disorder, recurrent severe without psychotic features (2) Panic disorder: Status: Acute Code(s): F41.0 - Panic disorder [episodic paroxysmal anxiety] (3) PTSD (post-traumatic stress disorder): Status: Acute Code(s): F43.10 - Post-traumatic stress disorder, unspecified (4) Opioid use disorder, severe, on maintenance therapy: Status: Acute Code(s): F11.20 - Opioid dependence, uncomplicated (5) Cocaine use disorder: Status: Acute Code(s): F14.10 - Cocaine abuse, uncomplicated Plan Patient is a 24-year-old male with history of MDD, DELGADO, PTSD, opiate use disorder and, cocaine use d/o who self presented to [facility] due to suicidal ideation with a plan to overdose on his medications secondary to finding his roommate decreased recently. Plan: CV 15 minute safety checks Continue home medications Remeron increased to 45mg PO bedtime Obtain collateral Encourage groups Referral to substance abuse program Discharge planning 02/01: Active on unit. social with peers. Patient reports feeling anxious about everything. Life ; he reports suicidal ideation with no plan. Continues to report paranoia of people talking about me . denies HI/VH/AH. Pt reports not sleeping well last night; per nursing, slept 6 hours. pt requested HIV and hepatitis panel which was ordered. Added; thorazine 50mg PO bedtime PRN 02/02:Active on unit. social with peers. Patient reports feeling depressed; pt reports suicidal ideation with plan to either slit my wrist or shoot myself ; pt reports he does not have access to a gun. denies HI/VH. He reports auditory hallucinations telling me to leave . per nursing, slept 5 hours. Changed Thorazine 25mg PO BID PRN to scheduled. 02/03: Pacing unit hallway. Patient continues to report feeling anxious and depressed; he reports suicidal ideation with plan to hang myself . Patient stated, I feel like I'm a burden to my family . Pt reports his father is trying to get him placed in a substance abuse program. denies HI/VH. He continues to report auditory hallucinations telling him to harm himself. Discussed starting on Latuda; risks/benefits reviewed, pt agreed to trial. Start: Latuda 20mg PO daily Patient educated on: diagnosis, medication risk/benefits and therapeutic strategies Reason for continued inpatient stay Substantial Risk for: harm to self and med/psych decompensation Time Spent With Patient Time: Total time managing care of this patient today _20___ minutes.
[2025-02-03 20:00] VITALS: BP 144/86; PULSE 72; RESP 16; TEMP 36.8; O2SAT 99
[2025-02-03 20:11] VITALS: BP 144/86
--- NOTE | 2025-02-04 07:47 | HO.PSYCHPN ---
Subjective Subjective Date of Service: 02/04/25 Reason For Visit: crisis Subjective Notes: Conditional Voluntary Interim History: ongoing feelings of depression and anxiety with suicidal thoughts. Thoughts of suicide but not active. Still auditory hallucinations. Some hope regarding Latuda being started yesterday . Would like Klonopin dose to be higher, but there is communication from treatment team to not adjust Klonopin or Ambien dosing over the weekend. Medication Compliance: Yes Side effects from medications: No Attending Groups: Yes Review of Systems Acute medical concerns: No Review of Systems Review of Systems Unremarkable Mental Status Exam Mental Status Exam Narrative: Pt is alert and oriented; behavior is cooperative and calm; dressed in casual attire; mood is described as depressed ; eye contact appropriate; Speech is normal rate, volume and not pressured; thought process is organized; Thought content is on tx; denies HI/VH. Pt reports suicidal ideation. He reports auditory hallucinations telling him to harm himself. Diagnostics Vital Signs (24Hr): Vital Signs - 24 hr 02/03/25 08:00 02/03/25 20:00 02/03/25 20:11 Temperature 97.5 F 98.2 F Pulse Rate 68 72 Respiratory Rate 16 16 Blood Pressure 103/57 L 144/86 H 144/86 H Pulse Oximetry 97 99 Oxygen Delivery Method Room Air Room Air BMI result Body Mass Index 36.4 Labs 02/01/25 08:21 02/01/25 08:21 Medications Medications Current Medications Acetaminophen (Acetaminophen 325 Mg Tablet) 650 mg PO Q6H PRN PRN Reason: Headache/Pain, Scale 1-10 Al Hydroxide/Mg Hydroxide (Magnesium Hydrox/Alum Hydrox 30 Ml Oral.Susp) 30 ml PO Q6H PRN PRN Reason: Heartburn/Nausea Benztropine Mesylate (Benztropine Mesylate 0.5 Mg Tablet) 0.5 mg PO TID PRN PRN Reason: Extrapyramidal Effects Chlorpromazine HCl (Chlorpromazine Hcl 25 Mg Tablet) 50 mg PO BEDTIME PRN PRN Reason: Insomnia Last Admin: 02/03/25 20:10 Dose: 50 mg Chlorpromazine HCl (Chlorpromazine Hcl 25 Mg Tablet) 25 mg PO BID COLIN Last Admin: 02/03/25 20:10 Dose: 25 mg Clonazepam (Clonazepam 1 Mg Tablet) 1 mg PO BID PRN PRN Reason: Anxiety Last Admin: 02/03/25 19:19 Dose: 1 mg Doxepin HCl (Doxepin Hcl 25 Mg Capsule) 25 mg PO BEDTIME [facility] Last Admin: 02/03/25 20:09 Dose: 25 mg Hydrocortisone (Hydrocortisone 1 % Cream 28.35 Gm Tube) 1 appl TOPICAL BID PRN; Protocol PRN Reason: Itching Last Admin: 02/01/25 18:35 Dose: 1 appl Hydroxyzine HCl (Hydroxyzine Hcl 50 Mg Tablet) 50 mg PO Q6H PRN PRN Reason: mild anxiety Last Admin: 02/03/25 20:08 Dose: 50 mg Lurasidone HCl (Lurasidone Hcl 20 Mg Tablet) 20 mg PO DAILY@1700 [facility] Last Admin: 02/03/25 18:00 Dose: 20 mg Magnesium Hydroxide (Milk Of Magnesia 30 Ml Oral.Susp) 30 ml PO DAILY PRN PRN Reason: Constipation Methadone HCl (Methadone Hcl 20 Mg/2 Ml Oral.Conc) 205 mg PO DAILY@0800 [facility] Last Admin: 02/03/25 07:41 Dose: 205 mg Mirtazapine (Mirtazapine 15 Mg Tablet) 45 mg PO BEDTIME [facility] Last Admin: 02/03/25 20:07 Dose: 45 mg Nicotine (Nicotine 21 Mg Patch.Td24) 21 mg TRANSDERMA DAILY [facility] Last Admin: 02/03/25 08:06 Dose: 21 mg Nicotine Polacrilex (Nicotine Polacrilex 2 Mg Gum) 4 mg BUCCAL Q2H PRN PRN Reason: Nicotine Cravings Last Admin: 02/03/25 22:10 Dose: 4 mg Omeprazole (Omeprazole 20 Mg Capsule.Dr) 20 mg PO DAILY@0630 [facility] Last Admin: 02/04/25 06:56 Dose: 20 mg Prazosin HCl (Prazosin Hcl 1 Mg Capsule) 3 mg PO BEDTIME [facility]; Protocol Last Admin: 02/03/25 20:11 Dose: 3 mg Promethazine HCl (Promethazine Hcl 25 Mg Tablet) 12.5 mg PO BID [facility] Last Admin: 02/03/25 20:07 Dose: 12.5 mg Trazodone HCl (Trazodone Hcl 50 Mg Tablet) 50 mg PO BEDTIME MRX1 PRN PRN Reason: Insomnia Venlafaxine HCl (Venlafaxine Hcl Er 150 Mg Cap.Er.24h) 150 mg PO DAILY [facility] Last Admin: 02/03/25 08:08 Dose: 150 mg Allergies Allergies Allergy/AdvReac Type Severity Reaction Status Date / Time No Known Allergies (No Known Allergy Verified 01/29/25 00:02 Allergies*) Assessment & Plan Assessment & Plan (1) MDD (major depressive disorder), recurrent severe, without psychosis: Status: Acute Code(s): F33.2 - Major depressive disorder, recurrent severe without psychotic features (2) Panic disorder: Status: Acute Code(s): F41.0 - Panic disorder [episodic paroxysmal anxiety] (3) PTSD (post-traumatic stress disorder): Status: Acute Code(s): F43.10 - Post-traumatic stress disorder, unspecified (4) Opioid use disorder, severe, on maintenance therapy: Status: Acute Code(s): F11.20 - Opioid dependence, uncomplicated (5) Cocaine use disorder: Status: Acute Code(s): F14.10 - Cocaine abuse, uncomplicated Plan Patient is a 24-year-old male with history of MDD, DELGADO, PTSD, opiate use disorder and, cocaine use d/o who self presented to [facility] due to suicidal ideation with a plan to overdose on his medications secondary to finding his roommate decreased recently. Plan: CV 15 minute safety checks Continue home medications Remeron increased to 45mg PO bedtime Obtain collateral Encourage groups Referral to substance abuse program Discharge planning 02/01: Active on unit. social with peers. Patient reports feeling anxious about everything. Life ; he reports suicidal ideation with no plan. Continues to report paranoia of people talking about me . denies HI/VH/AH. Pt reports not sleeping well last night; per nursing, slept 6 hours. pt requested HIV and hepatitis panel which was ordered. Added; thorazine 50mg PO bedtime PRN 02/02:Active on unit. social with peers. Patient reports feeling depressed; pt reports suicidal ideation with plan to either slit my wrist or shoot myself ; pt reports he does not have access to a gun. denies HI/VH. He reports auditory hallucinations telling me to leave . per nursing, slept 5 hours. Changed Thorazine 25mg PO BID PRN to scheduled. 02/03: Pacing unit hallway. Patient continues to report feeling anxious and depressed; he reports suicidal ideation with plan to hang myself . Patient stated, I feel like I'm a burden to my family . Pt reports his father is trying to get him placed in a substance abuse program. denies HI/VH. He continues to report auditory hallucinations telling him to harm himself. Discussed starting on Latuda; risks/benefits reviewed, pt agreed to trial. Start: Latuda 20mg PO daily 02/04/2025: No changes as Latuda just started. Communication from treatment team to maintain Klonopin and Ambien dosing i.e. do not adjust over the weekend Reason for continued inpatient stay Substantial Risk for: harm to self Time Spent With Patient Time: Total time managing care of this patient today ____ minutes.
[2025-02-04 08:00] VITALS: BP 107/59; PULSE 80; RESP 20; TEMP 36.8; O2SAT 98
[2025-02-04] MEDS: methADONE HCl 20 MG/2 ML ORAL.CONC 205 MG PO (08:07)
[2025-02-04] MEDS: Venlafaxine HCl ER 150 MG CAP.ER.24H PO (08:12)
[2025-02-04] MEDS: Nicotine 21 MG PATCH.TD24 TRANSDERMA (08:14)
[2025-02-04 19:55] VITALS: BP 129/81; PULSE 73; RESP 16; TEMP 36.8; O2SAT 99
[2025-02-05 08:00] VITALS: BP 107/63; PULSE 65; RESP 16; TEMP 36.6; O2SAT 98
[2025-02-05] MEDS: methADONE HCl 20 MG/2 ML ORAL.CONC 205 MG PO (08:05)
[2025-02-05] MEDS: Venlafaxine HCl ER 150 MG CAP.ER.24H PO (08:11)
[2025-02-05] MEDS: Nicotine 21 MG PATCH.TD24 TRANSDERMA (08:15)
--- NOTE | 2025-02-05 11:37 | P.PNPSI_ITS ---
Subjective Subjective Date of Service: 02/05/25 Reason For Visit: crisis Interim History: Ongoing feelings of depression and anxiety with suicidal thoughts (no plans). denied auditory hallucinations. No side effect from Latuda started 2 days ago. Communicated that will maintain Klonopin and Ambien at current dosing as per treatment team. Will increase nicotine to as needed every hour rather than every 2 hours. Regarding disposition planning, reports respite in [facility] could be a challenge as his methadone dosing is through [facility]. Reports parents are also looking at [facility] is which might be an option also. Medication Compliance: Yes Side effects from medications: No Attending Groups: Intermittent Review of Systems Acute medical concerns: No Review of Systems Review of Systems Unremarkable Mental Status Exam Mental Status Exam Narrative: Pt is alert and oriented; behavior is cooperative and calm; dressed in casual attire; mood is described as still depressed ; eye contact appropriate; Speech is normal rate, volume and not pressured; thought process is organized; Thought content is on tx; denies HI/VH. Pt reports suicidal ideation, no plans. No AH. Diagnostics Vital Signs (24Hr): Vital Signs - 24 hr 02/04/25 19:55 02/05/25 08:00 Temperature 98.2 F 97.8 F Pulse Rate 73 65 Respiratory Rate 16 16 Blood Pressure 129/81 107/63 Pulse Oximetry 99 98 Oxygen Delivery Method Room Air Room Air BMI result Body Mass Index 36.4 Labs 02/01/25 08:21 02/01/25 08:21 Medications Medications Current Medications Acetaminophen (Acetaminophen 325 Mg Tablet) 650 mg PO Q6H PRN PRN Reason: Headache/Pain, Scale 1-10 Al Hydroxide/Mg Hydroxide (Magnesium Hydrox/Alum Hydrox 30 Ml Oral.Susp) 30 ml PO Q6H PRN PRN Reason: Heartburn/Nausea Benztropine Mesylate (Benztropine Mesylate 0.5 Mg Tablet) 0.5 mg PO TID PRN PRN Reason: Extrapyramidal Effects Chlorpromazine HCl (Chlorpromazine Hcl 25 Mg Tablet) 50 mg PO BEDTIME PRN PRN Reason: Insomnia Last Admin: 02/04/25 20:05 Dose: 50 mg Chlorpromazine HCl (Chlorpromazine Hcl 25 Mg Tablet) 25 mg PO BID [facility] Last Admin: 02/05/25 08:11 Dose: 25 mg Clonazepam (Clonazepam 1 Mg Tablet) 1 mg PO BID PRN PRN Reason: Anxiety Last Admin: 02/05/25 08:10 Dose: 1 mg Doxepin HCl (Doxepin Hcl 25 Mg Capsule) 25 mg PO BEDTIME [facility] Last Admin: 02/04/25 20:05 Dose: 25 mg Hydrocortisone (Hydrocortisone 1 % Cream 28.35 Gm Tube) 1 appl TOPICAL BID PRN; Protocol PRN Reason: Itching Last Admin: 02/01/25 18:35 Dose: 1 appl Hydroxyzine HCl (Hydroxyzine Hcl 50 Mg Tablet) 50 mg PO Q6H PRN PRN Reason: mild anxiety Last Admin: 02/05/25 08:10 Dose: 50 mg Lurasidone HCl (Lurasidone Hcl 20 Mg Tablet) 20 mg PO DAILY@1700 [facility] Last Admin: 02/04/25 17:07 Dose: 20 mg Magnesium Hydroxide (Milk Of Magnesia 30 Ml Oral.Susp) 30 ml PO DAILY PRN PRN Reason: Constipation Methadone HCl (Methadone Hcl 20 Mg/2 Ml Oral.Conc) 205 mg PO DAILY@0800 [facility] Last Admin: 02/05/25 08:05 Dose: 205 mg Mirtazapine (Mirtazapine 15 Mg Tablet) 45 mg PO BEDTIME [facility] Last Admin: 02/04/25 20:05 Dose: 45 mg Nicotine (Nicotine 21 Mg Patch.Td24) 21 mg TRANSDERMA DAILY [facility] Last Admin: 02/05/25 08:15 Dose: 21 mg Nicotine Polacrilex (Nicotine Polacrilex 2 Mg Gum) 4 mg BUCCAL Q2H PRN PRN Reason: Nicotine Cravings Last Admin: 02/05/25 10:54 Dose: 4 mg Omeprazole (Omeprazole 20 Mg Capsule.Dr) 20 mg PO DAILY@0630 [facility] Last Admin: 02/05/25 06:36 Dose: 20 mg Prazosin HCl (Prazosin Hcl 1 Mg Capsule) 3 mg PO BEDTIME [facility]; Protocol Last Admin: 02/04/25 20:05 Dose: 3 mg Promethazine HCl (Promethazine Hcl 25 Mg Tablet) 12.5 mg PO BID [facility] Last Admin: 02/05/25 08:12 Dose: 12.5 mg Trazodone HCl (Trazodone Hcl 50 Mg Tablet) 50 mg PO BEDTIME MRX1 PRN PRN Reason: Insomnia Venlafaxine HCl (Venlafaxine Hcl Er 150 Mg Cap.Er.24h) 150 mg PO DAILY [facility] Last Admin: 02/05/25 08:11 Dose: 150 mg Allergies Allergies Allergy/AdvReac Type Severity Reaction Status Date / Time No Known Allergies (No Known Allergy Verified 01/29/25 00:02 Allergies*) Assessment & Plan Assessment & Plan (1) MDD (major depressive disorder), recurrent severe, without psychosis: Status: Acute Code(s): F33.2 - Major depressive disorder, recurrent severe without psychotic features (2) Panic disorder: Status: Acute Code(s): F41.0 - Panic disorder [episodic paroxysmal anxiety] (3) PTSD (post-traumatic stress disorder): Status: Acute Code(s): F43.10 - Post-traumatic stress disorder, unspecified (4) Opioid use disorder, severe, on maintenance therapy: Status: Acute Code(s): F11.20 - Opioid dependence, uncomplicated (5) Cocaine use disorder: Status: Acute Code(s): F14.10 - Cocaine abuse, uncomplicated Plan Patient is a 24-year-old male with history of MDD, DELGADO, PTSD, opiate use disorder and, cocaine use d/o who self presented to [facility] ER due to suicidal ideation with a plan to overdose on his medications secondary to finding his roommate decreased recently. Plan: CV 15 minute safety checks Continue home medications Remeron increased to 45mg PO bedtime Obtain collateral Encourage groups Referral to substance abuse program Discharge planning 02/01: Active on unit. social with peers. Patient reports feeling anxious about everything. Life ; he reports suicidal ideation with no plan. Continues to report paranoia of people talking about me . denies HI/VH/AH. Pt reports not sleeping well last night; per nursing, slept 6 hours. pt requested HIV and hepatitis panel which was ordered. Added; thorazine 50mg PO bedtime PRN 02/02:Active on unit. social with peers. Patient reports feeling depressed; pt reports suicidal ideation with plan to either slit my wrist or shoot myself ; pt reports he does not have access to a gun. denies HI/VH. He reports auditory hallucinations telling me to leave . per nursing, slept 5 hours. Changed Thorazine 25mg PO BID PRN to scheduled. 02/03: Pacing unit hallway. Patient continues to report feeling anxious and depressed; he reports suicidal ideation with plan to hang myself . Patient stated, I feel like I'm a burden to my family . Pt reports his father is trying to get him placed in a substance abuse program. denies HI/VH. He continues to report auditory hallucinations telling him to harm himself. Discussed starting on Latuda; risks/benefits reviewed, pt agreed to trial. Start: Latuda 20mg PO daily 02/04/2025: No changes as Latuda just started. Communication from treatment team to maintain Klonopin and Ambien dosing i.e. do not adjust over the weekend 02/05: Regarding disposition planning, reports respite in [facility] could be a challenge as his methadone dosing is through [facility]. Reports parents are also looking at [facility] is which might be an option also Reason for continued inpatient stay Substantial Risk for: harm to self Time Spent With Patient Time: Total time managing care of this patient today ____ minutes.
[2025-02-05 19:40] VITALS: BP 131/78; PULSE 90; RESP 16; TEMP 36.9; O2SAT 97
[2025-02-06 07:47] VITALS: BP 105/59; PULSE 69; RESP 14; TEMP 36.6; O2SAT 98
[2025-02-06] MEDS: methADONE HCl 20 MG/2 ML ORAL.CONC 205 MG PO (07:53)
[2025-02-06] MEDS: Venlafaxine HCl ER 150 MG CAP.ER.24H PO (08:12)
[2025-02-06] MEDS: Nicotine 21 MG PATCH.TD24 TRANSDERMA (08:13)
--- NOTE | 2025-02-06 11:36 | PC.NURSE ---
Nurse to Nurse was given this afternoon to Efrain, one of the nurses at [facility], regarding patient.
--- NOTE | 2025-02-06 15:09 | HO.PSYCHPN ---
Subjective Subjective Date of Service: 02/06/25 Reason For Visit: crisis Subjective Notes: Conditional Voluntary Healthcare Proxy: No Guardianship: No Medical Problems Affecting Mental Status: No Interim History: Medical record and nursing notes reviewed; case discussed during rounds with team/nursing staff, and met with patient for supportive therapy/psychoeducation, as well as medication management. Reports sleep and appetite are good. Compliant with medication. Denies side effects. Denies nauseous or for vomiting. Advised patient to take Phenergan p.r.n. instead of scheduled. Patient is receptive. He also receptive to go to respite tomorrow as bed is available. Denies safety concerns. Reports voices but denies command in nature I know how to distinguish which one is real or which one is not real voices . Continue improve in mood, , visible pacing and social with peers and staff. No behavior issues. Working on send medication to preferred pharmacy per respite request. Patient will continue with methadone dose maintenance daily. Medication Compliance: Yes Side effects from medications: No Attending Groups: Intermittent Review of Systems Acute medical concerns: No Medical Review of Systems: unchanged Review of Systems Review of Systems Constitutional: Denies fatigue and Denies fever(s) Cardiovascular: Denies chest pain and Denies dyspnea Respiratory: Denies dyspnea Gastrointestinal: Denies abdominal pain Psychiatric: denies suicidal ideation Endocrine: Denies fatigue Yes all other systems are reviewed and are negative Mental Status Exam Mental Status Exam Narrative: Pt is alert and oriented; behavior is cooperative and calm; dressed in casual attire; mood is described as better ; eye contact appropriate; Speech is normal rate, volume and not pressured; thought process is organized; Thought content is on tx; denies SI/SIB/HI/VH. , no plans. Voices but under control and not command in nature. Insight and judgment are good. Diagnostics Vital Signs (24Hr): Vital Signs - 24 hr 02/05/25 19:40 02/06/25 07:47 Temperature 98.4 F 97.9 F Pulse Rate 90 69 Respiratory Rate 16 14 Blood Pressure 131/78 105/59 L Pulse Oximetry 97 98 Oxygen Delivery Method Room Air Room Air BMI result Body Mass Index 36.4 Labs 02/01/25 08:21 02/01/25 08:21 Medications Medications Current Medications Acetaminophen (Acetaminophen 325 Mg Tablet) 650 mg PO Q6H PRN PRN Reason: Headache/Pain, Scale 1-10 Al Hydroxide/Mg Hydroxide (Magnesium Hydrox/Alum Hydrox 30 Ml Oral.Susp) 30 ml PO Q6H PRN PRN Reason: Heartburn/Nausea Benztropine Mesylate (Benztropine Mesylate 0.5 Mg Tablet) 0.5 mg PO TID PRN PRN Reason: Extrapyramidal Effects Chlorpromazine HCl (Chlorpromazine Hcl 25 Mg Tablet) 50 mg PO BEDTIME PRN PRN Reason: Insomnia Last Admin: 02/05/25 20:15 Dose: 50 mg Chlorpromazine HCl (Chlorpromazine Hcl 25 Mg Tablet) 25 mg PO BID [facility] Last Admin: 02/06/25 08:11 Dose: 25 mg Clonazepam (Clonazepam 1 Mg Tablet) 1 mg PO BID PRN PRN Reason: Anxiety Last Admin: 02/06/25 08:12 Dose: 1 mg Doxepin HCl (Doxepin Hcl 25 Mg Capsule) 25 mg PO BEDTIME [facility] Last Admin: 02/05/25 20:15 Dose: 25 mg Hydrocortisone (Hydrocortisone 1 % Cream 28.35 Gm Tube) 1 appl TOPICAL BID PRN; Protocol PRN Reason: Itching Last Admin: 02/01/25 18:35 Dose: 1 appl Hydroxyzine HCl (Hydroxyzine Hcl 50 Mg Tablet) 50 mg PO Q6H PRN PRN Reason: mild anxiety Last Admin: 02/05/25 08:10 Dose: 50 mg Lurasidone HCl (Lurasidone Hcl 20 Mg Tablet) 20 mg PO DAILY@1700 [facility] Last Admin: 02/05/25 16:57 Dose: 20 mg Magnesium Hydroxide (Milk Of Magnesia 30 Ml Oral.Susp) 30 ml PO DAILY PRN PRN Reason: Constipation Methadone HCl (Methadone Hcl 20 Mg/2 Ml Oral.Conc) 205 mg PO DAILY@0800 [facility] Last Admin: 02/06/25 07:53 Dose: 205 mg Mirtazapine (Mirtazapine 15 Mg Tablet) 45 mg PO BEDTIME [facility] Last Admin: 02/05/25 20:15 Dose: 45 mg Nicotine (Nicotine 21 Mg Patch.Td24) 21 mg TRANSDERMA DAILY [facility] Last Admin: 02/06/25 08:13 Dose: 21 mg Nicotine Polacrilex (Nicotine Polacrilex 2 Mg Gum) 4 mg BUCCAL Q1H PRN PRN Reason: Nicotine Cravings Last Admin: 02/06/25 13:05 Dose: 4 mg Omeprazole (Omeprazole 20 Mg Capsule.Dr) 20 mg PO DAILY@0630 [facility] Last Admin: 02/06/25 06:50 Dose: 20 mg Prazosin HCl (Prazosin Hcl 1 Mg Capsule) 3 mg PO BEDTIME [facility]; Protocol Last Admin: 02/05/25 20:16 Dose: 3 mg Promethazine HCl (Promethazine Hcl 25 Mg Tablet) 12.5 mg PO BID [facility] Last Admin: 02/06/25 08:12 Dose: 12.5 mg Trazodone HCl (Trazodone Hcl 50 Mg Tablet) 50 mg PO BEDTIME MRX1 PRN PRN Reason: Insomnia Venlafaxine HCl (Venlafaxine Hcl Er 150 Mg Cap.Er.24h) 150 mg PO DAILY [facility] Last Admin: 02/06/25 08:12 Dose: 150 mg Allergies Allergies Allergy/AdvReac Type Severity Reaction Status Date / Time No Known Allergies (No Known Allergy Verified 01/29/25 00:02 Allergies*) Assessment & Plan Assessment & Plan (1) MDD (major depressive disorder), recurrent severe, without psychosis: Status: Acute Code(s): F33.2 - Major depressive disorder, recurrent severe without psychotic features (2) Panic disorder: Status: Acute Code(s): F41.0 - Panic disorder [episodic paroxysmal anxiety] (3) PTSD (post-traumatic stress disorder): Status: Acute Code(s): F43.10 - Post-traumatic stress disorder, unspecified (4) Opioid use disorder, severe, on maintenance therapy: Status: Acute Code(s): F11.20 - Opioid dependence, uncomplicated (5) Cocaine use disorder: Status: Acute Code(s): F14.10 - Cocaine abuse, uncomplicated Plan Patient is a 24-year-old male with history of MDD, DELGADO, PTSD, opiate use disorder and, cocaine use d/o who self [place] [facility] due to suicidal ideation with a plan to overdose on his medications secondary to finding his roommate decreased recently. Plan: CV 15 minute safety checks Continue home medications Remeron increased to 45mg PO bedtime Obtain collateral Encourage groups Referral to substance abuse program Discharge planning 02/01: Active on unit. social with peers. Patient reports feeling anxious about everything. Life ; he reports suicidal ideation with no plan. Continues to report paranoia of people talking about me . denies HI/VH/AH. Pt reports not sleeping well last night; per nursing, slept 6 hours. pt requested HIV and hepatitis panel which was ordered. Added; thorazine 50mg PO bedtime PRN 02/02:Active on unit. social with peers. Patient reports feeling depressed; pt reports suicidal ideation with plan to either slit my wrist or shoot myself ; pt reports he does not have access to a gun. denies HI/VH. He reports auditory hallucinations telling me to leave . per nursing, slept 5 hours. Changed Thorazine 25mg PO BID PRN to scheduled. 02/06/25: Reports sleep and appetite are good. Compliant with medication. Denies side effects. Denies nauseous or for vomiting. Advised patient to take Phenergan p.r.n. instead of scheduled. Patient is receptive. He also receptive to go to respite tomorrow as bed is available. Denies safety concerns. Reports voices but denies command in nature I know how to distinguish which one is real or which one is not real voices . Continue improve in mood, , visible pacing and social with peers and staff. No behavior issues. Working on send medication to preferred pharmacy per respite request. Patient will continue with methadone dose maintenance daily. Patient educated on: medication risk/benefits and therapeutic strategies Informed Consent: understands Reason for continued inpatient stay Substantial Risk for: med/psych decompensation Time Spent With Patient Time: Total time managing care of this patient today ____ minutes.
[2025-02-06 19:26] VITALS: BP 134/89; PULSE 108; RESP 18; TEMP 36.4; O2SAT 95
[2025-02-07 07:50] VITALS: BP 145/84; PULSE 78; RESP 16; TEMP 36.7; O2SAT 99
[2025-02-07] MEDS: methADONE HCl 20 MG/2 ML ORAL.CONC 205 MG PO (08:04)
[2025-02-07] MEDS: Venlafaxine HCl ER 150 MG CAP.ER.24H PO (08:12)
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
== END 2025-02-07 10:25 | DRG 885 ==
LOC: HO.ED 01-31 11:48 → HO.PADLT16 01-31 11:53
PROVIDERS: Admitting Provider Registered Nurse; Emergency Provider Emergency Medicine; Visit Provider Psychiatry & Neurology Psychiatry
DX: F33.2 Major depressive disorder, recurrent severe without psychotic features (principal); F11.20 Opioid dependence, uncomplicated; R45.851 Suicidal ideations; F17.210 Nicotine dependence, cigarettes, uncomplicated; Z71.6 Tobacco abuse counseling; F43.10 Post-traumatic stress disorder, unspecified; F41.0 Panic disorder [episodic paroxysmal anxiety]; F14.10 Cocaine abuse, uncomplicated; Z79.899 Other long term (current) drug therapy
CPT/HCPCS: 36415; 80053; 80061; 80143; 80178; 80179; 80307; 81001; 83036; 83735; 85025; 86704; 86706; 86709; 86803; 87340; 87389; 93005; 99285; S9485

== ENCOUNTER → 2025-01-29 00:35 | Outpatient (BNV) | payer MEDICAID, SELFPAY | PROVIDERS: Emergency Provider Emergency Medicine; Visit Provider Internal Medicine | DX: Z13.6 Encounter for screening for cardiovascular disorders (principal) | CPT/HCPCS: 93010 ==

== ENCOUNTER → 2025-01-31 11:39 | Outpatient (BNV) | payer OTHER, SELFPAY | PROVIDERS: Admitting Provider Registered Nurse; Emergency Provider Emergency Medicine; Visit Provider Registered Nurse | DX: F33.2 Major depressive disorder, recurrent severe without psychotic features (principal); F11.20 Opioid dependence, uncomplicated; F41.0 Panic disorder [episodic paroxysmal anxiety]; F43.11 Post-traumatic stress disorder, acute; F14.10 Cocaine abuse, uncomplicated | CPT/HCPCS: 90792; 99232 ==

== ENCOUNTER 2025-03-11 03:08 | Inpatient (IN) | payer OTHER, SELFPAY ==
[2025-03-11] VITALS (8 sets, daily range): BP systolic 99–152; BP diastolic 56–85; PULSE 66–104; RESP 16–18; TEMP 36.3–36.7; O2SAT 94–98; BMI 38.0
--- OUTSIDE RECORDS SUMMARY | 2025-03-11 03:34 | XMS_ITS | Clinical Summary ---
Author Organization [facility] Address [address] [place] [address] Care Team Providers Care Yard Manager Name Role Phone Mykel Marquis MD Primary Care Provider [phone] Social History Tobacco Use Types Packs/Day Years [...] Last Done Comments Hepatitis C Screening 1998 DTaP/Tdap/Td (1 - Tdap) 02/23/2016 Hep B (1 of 3 - 19+ 3-dose series) 2017 COVID-19 Vaccine ( - 2024-2 6 season) 2025 Influenza (#1) 2025 Zoster (Shingrix) (1 of 2) 02/23/2048 HPV Vaccine (No Doses Required) Completed Hep A Aged Out No longer eligi ble based on patient's age to complete this topic Hib Aged Out No longer eligi ble based on patient's age to complete this topic Meningococcal ACWY Aged Out No longer eligible based on patient's age to complete this topic Pneumococcal Aged Out No longer eligi ble based on patient's age to complete this topic Insurance [employer]NA[employer]IVE [facility] [facility] (POS) Care Teams Yard Manager Relationship Specialty Start Date End Date Mykel Marquis MD [address] [address] PCP - General Internal Medicine 10/04/19
--- OUTSIDE RECORDS SUMMARY | 2025-03-11 03:34 | XMS_ITS | Clinical Summary ---
Author Organization [facility] Address [address] [address] Care Team Providers Care Product Marketer Name Role Phone Unavailable Primary Care Provider [...]
--- OUTSIDE RECORDS SUMMARY | 2025-03-11 03:34 | XMS_ITS | Encounter Summary ---
Author Organization [facility] Address [address] [place] [address] Phone Care Team Providers Care Car Body Designer Name Role Phone Amador Smith MD Primary Care Provider [phone] Reason for Visit * Reason Comments Med Refill Encounter Details Date Type Department Care Team (Late st Contact Info) Description 03/09/2018 Refill Pediatric And Adolescent Medicine - [address] [address] Amador Smith MD [address] [place] [address] Anxiety Social History Tobacco Use Types Packs/Day [...] unspecified documented in this encounter Care Teams Car Body Designer Relationship Specialty Start Date End Date Amador Smith MD [address] [place] [address] PCP - General 10/07/17 documented as of this encounter
--- OUTSIDE RECORDS SUMMARY | 2025-03-11 03:34 | XMS_ITS | Encounter Summary ---
Author Organization [facility] Address [address] [place] [address] Phone Care Team Providers Care Manager Bridge Name Role Phone Amador Smith MD Primary Care Provider [phone] Encounter Details Date Type Department Care Team (Late st Contact Info) Description 12/09/2010 Conversion Encounter Pediatric And Adolescent Medicine - [address] [address] Social History Tobacco Use Types Packs/Day Years [...] on filedocumented in this encounter Care Teams Manager Bridge Relationship Specialty Start Date End Date Amador Smith MD [address] [place] [address] PCP - General 10/07/17 documented as of this encounter
--- OUTSIDE RECORDS SUMMARY | 2025-03-11 03:34 | XMS_ITS | Clinical Summary ---
Author Organization [facility] Address [address] [place] [address] Phone Care Team Providers Care Medical Office Administrator Name Role Phone Amador Smith MD Primary Care Provider [phone] Allergies No known active allergies Medications clonazePAM [...] hyperactivity (314.00) Onset: 10/14/2013 Added by: Oma Erzao Resolved Problems Problem Noted Date Diagnosed Date [...] 08/27/1999, Additional history exists Influenza Vaccines (#1) 2024 03/02/20 14, 06/24/2013, 02/11/2012, Additional history exists COVID-19 Vaccine ( season) 2025 Hepatitis B Vaccines Completed 1998, 1998, 1998 [...] this topic Insurance [employer] [place] [id number] Care Teams Medical Office Administrator Relationship Specialty Start Date End Date Amador Smith MD [address] [facility] [place] [address] PCP - General 10/07/17
--- NOTE | 2025-03-11 04:09 | PC.NURSE ---
pt presents to ED for SI, states im tired . [facility]?, has last dose letter for methadone with him, reports 5am 03/10/25. reports using 10 bags of whatever SENIOR SAFETY SUPPORT MANAGER. pt reports used 10 bags with vague thoughts of OD/SI. bruising noting to R upper arm and LAC, from missed IVDU today. pt A/O x4, ambulatory, calm and cooperative with care, given plenty of food and drinks, no apparent distress noted at this time. pt resting comfortably in room. belongings searched and stored, all medication were reviewed, no controlled medications. per pt's request, all drug paraphernalia was thrown away.
--- NOTE | 2025-03-11 04:23 | MHC.EDTECH ---
Patient arrives to pod with misc clean needles, crack pipe, loose drugs and misc drug paraphanalia. At patients request all items disposed of. Security and RN aware of patients request to discard of all clean needles and needles thrown in sharps container. All other misc items disposed of.
--- NOTE | 2025-03-11 04:25 | MHC.EDTECH ---
Patient provided urine cup during chart changer. Unable to void, patient tried one additional time without success. Urine cup at bedside.
--- NOTE | 2025-03-11 04:43 | MHC.EDTECH ---
Unsuccessful venipuncture x2. RN aware.
--- NOTE | 2025-03-11 04:48 | PC.NURSE ---
med rec completed based on most recent RX bottles that pt had in belongings, dated 03/10/25
--- NOTE | 2025-03-11 05:14 | PC.NURSE ---
pt now asleep in room, snoring, very hard to arouse with sternal rub, pt drenched in sweat. 98% RA, HR 90. provider made aware, in to assess. pt will be moved to Main ED for monitoring.
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
--- NOTE | 2025-03-11 05:29 | PC.NURSE ---
Addendum entered by Margaret Mills RN 03/11/25 05:37: VSS at this time Etco2 24 Original Note: patient brought over from the pod via wheelchair. patient is awake and alert, answers questions appropriately. resp even and unlabored. patient placed on capnography and tele. has sitter in place
[2025-03-11 05:52] LABS: Hematocrit 38.9 % (42.0-52.0); Hemoglobin 13.0 g/dl (14.0-18.0); Imm Gran Abs Auto 0.04 X10*3/uL (0.00-0.03); Imm Gran Pct Auto 0.4 % (0.0-0.4); Lymphocytes Absolute Auto 1.2 X10*3/uL (1.2-4.9); MANUAL DIFF FLAG NO; Mean Corpuscular HGB Conc 33.4 g/dl (31.0-36.0); Mean Corpuscular Hemoglobin 28.3 pg (27.0-33.0); Mean Corpuscular Volume 84.6 fL (80.0-98.0); NRBC Abs Auto 0.000 X10*3/uL (0.0-0.012); NRBC Pct Auto 0.0 /100WBC (0.0-0.2); Platelet Count 185 X10*3/uL (160-400); Red Blood Count 4.60 X10*6/uL (4.60-5.80); White Blood Count 10.8 X10*3/uL (4.8-10.8)
[2025-03-11 06:00] LABS: Appearance Urine Clear; Glucose Urine UA Negative (Negative); PH 6.0 (5.0-9.0); Specific Gravity - Urine 1.010 (1.005-1.025); UMIC TRIGGER UACC YES
[2025-03-11 06:06] LABS: Anion Gap 17 (12-20); Blood Urea Nitrogen 21 mg/dL (9-16); Calcium 9.6 mg/dL (8.4-10.2); Carbon Dioxide 22 mmol/L (22-29); Chloride 104 mmol/L (96-108); Creatinine Clr Calc Pharmacy 157.5; Estimated Glomerular Filt Rate > 60; Potassium 5.0 mmol/L (3.3-5.1); Sodium 138 mmol/L (135-145)
[2025-03-11 06:07] LABS: Acetaminophen LAB < 3 mcg/mL (<30); Salicylate < 5.0 mg/dL (15-30)
[2025-03-11 06:09] LABS: Cannabinoid Screen Urine Not Detected (Not Detect)
--- NOTE | 2025-03-11 06:33 | PC.NURSE ---
methadone last dose letter faxed to pharmacy
--- NOTE | 2025-03-11 08:05 | PC.NURSE ---
patient remains asleep, resp even and unlabored. patient is on tele monitor HR 80, normal sinus. patient etco2 27 98% on room air. patient has sitter 1:1., patient arouses to verbal stimuli.
--- NOTE | 2025-03-11 08:12 | HE.PHANOTE ---
METHADONE CONFIRMATION FORM RECEIVED PATIENT TAKES 205MG FROM [facility]. LAST DOSE 03/10 @ 171
[2025-03-11] MEDS: Venlafaxine HCl ER 150 MG CAP.ER.24H PO (09:20)
--- NOTE | 2025-03-11 09:57 | PC.NURSE ---
Pt is brought to the the pod from the main ED, he is calm and cooperative and ambulatory. He goes to the bathroom and stands over the toilet for longer than 10 min. he is asked multiple times if he is ok. Once finished, he asks the show card writer for his methadone. Order is obtained, Pt is observed sitting on the edge of his bed nodding off and leaning so far over he almost falls onto the floor multiple times. Provider is notified of holding the Methadone at this time.
--- NOTE | 2025-03-11 16:17 | PC.NURSE ---
Pt has been sleeping, B/P 97/60. He wakes slowly and falls back to sleep quickly. His afternoon medications are held, provider is notified.
--- NOTE | 2025-03-11 21:30 | PC.NURSE ---
patient woke up requesting methadone and prn klonopin, orders not available for both, made MD Roberts aware. vitals obtained. 2100 meds given per jul. Baclofen not available in POD pyxis, awaiting for it to be brought in from main ED. patient is calm/cooperative, verbalizes feeling more awake now and feels he may be withdrawing now.
[2025-03-11] MEDS: methADONE HCl 20 MG/2 ML ORAL.CONC 205 MG PO (21:39)
--- NOTE | 2025-03-11 22:12 | PC.NURSE ---
patient medicated per mar with meds. changed gown and pants. requests multiple drinks and snacks, given at this time.
--- NOTE | 2025-03-11 22:43 | PC.NURSE ---
patient cleaned off his desk of trash from his food and snacks, came out to throw them away. noticed patient had hair tied up with a rubber band. patient willingly gave it up, states he is unsure how he got it.
[2025-03-12] VITALS (7 sets, daily range): BP systolic 109–131; BP diastolic 58–84; PULSE 73–87; RESP 16–18; TEMP 36.3–36.7; O2SAT 96–99; BMI 39.8
--- NOTE | 2025-03-12 06:13 | PC.NURSE ---
yesterdays omeprazole was given under this AM schedule, this AM scheduled omeprazole scanned as unscheduled medication.
[2025-03-12] MEDS: Venlafaxine HCl ER 150 MG CAP.ER.24H PO (08:19)
[2025-03-12] MEDS: methADONE HCl 20 MG/2 ML ORAL.CONC 205 MG PO (08:27)
--- NOTE | 2025-03-12 09:10 | PC.NURSE ---
Assumed care, report received. Pt is awake, alert, calm and cooperative. He eats breakfast and takes meds without difficulty. He continues to endorse SI with a plan to OD.
--- NOTE | 2025-03-12 11:31 | MHC.EDTECH ---
Patient started being upset due to not getting his meds. The nurse explained to the patient that the doctor is very busy with another critical patient. He demanded to talk to the doctor about his medication and if he didn't get his medication that he would get very upset and flip out. Charleen redirected the patient but he came out his room and started talking about the medication again
--- NOTE | 2025-03-12 12:14 | PC.NURSE ---
Pt with increased restlessness, he continues to ask for Klonopin that he takes BID. HE paces the unit and says im going to flip this place if I dont get it Pt is educated on the concern for which he arrived yesterday. He is given Hydroxyzine. Pt reports pain and swelling to the Lt AC from where he injected his drugs. PA is notified and evaluated.
--- NOTE | 2025-03-12 12:20 | ECG_ITS ---
Test Reason : MED CLEARANCE Blood Pressure : */* mmHG Vent. Rate : 80 BPM Atrial Rate : 80 BPM P-R Int : 150 ms QRS Dur : 84 ms QT Int : 418 ms P-R-T Axes : 48 76 47 degrees QTcB Int : 482 ms Normal sinus rhythm Prolonged QT Abnormal ECG When compared with ECG of 29-Jan-2025 00:35, No significant change was found Referred By: Solitario Hauser Electronically Signed By: Roman Shaffer
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
[2025-03-13 07:45] VITALS: BP 162/86; PULSE 60; RESP 16; O2SAT 99
[2025-03-13] MEDS: methADONE HCl 20 MG/2 ML ORAL.CONC 205 MG PO (07:52)
[2025-03-13 08:20] LABS: Hemoglobin A1C 111.6558 umol/L; Total Hemoglobin (HGBA1C) 3390.2396 umol/L
[2025-03-13 08:27] LABS: Alanine Aminotransferase 74 U/L (0-40); Albumin Level 4.1 g/dL (3.5-5.0); Alkaline Phosphatase 87 U/L (39-117); Anion Gap 15 (12-20); Aspartate Amino Transferase 120 U/L (5-37); Blood Urea Nitrogen 16 mg/dL (9-16); Calcium 8.8 mg/dL (8.4-10.2); Carbon Dioxide 23 mmol/L (22-29); Chloride 109 mmol/L (96-108); Cholesterol 231 mg/dL (<200); Creatinine Clr Calc Pharmacy 206.0; Estimated Glomerular Filt Rate > 60; HDL Cholesterol 38 mg/dL (>40); Potassium 4.4 mmol/L (3.3-5.1); Sodium 143 mmol/L (135-145); Total Protein 6.9 g/dL (6.5-8.0); Triglycerides 445 mg/dL (<150)
[2025-03-13] MEDS: Venlafaxine HCl ER 150 MG CAP.ER.24H PO (08:33)
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
[2025-03-13 14:03] VITALS: BP 134/81
[2025-03-13 21:04] VITALS: BP 123/79
[2025-03-13 21:06] VITALS: BP 123/79
[2025-03-13 21:15] VITALS: BP 123/79; PULSE 97; RESP 16; TEMP 36.6; O2SAT 98
[2025-03-14] MEDS: methADONE HCl 20 MG/2 ML ORAL.CONC 205 MG PO (07:56)
[2025-03-14] MEDS: Venlafaxine HCl ER 150 MG CAP.ER.24H PO (08:07)
[2025-03-14 08:11] VITALS: BP 127/79; PULSE 65; RESP 16; TEMP 36.4; O2SAT 97
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
--- NOTE | 2025-03-14 09:56 | HO.PSYCHPN ---
Subjective Subjective Date of Service: 03/14/25 Reason For Visit: SI Interim History: met with patient; discussed with team pt depressed and with much anxiety; tolerating increased Latuda. Discussed options and he agreed to try buspar; he has tried buspar before and remembers it being helpful. Discussed hx; discussed aftercare options Mental Status Exam Mental Status Exam Narrative: Pt is alert and oriented; behavior is cooperative, quiet, isolative: patient is not in distress; dressed in hospital attire, unkempt, obese; mood is described as depressed and affect congruent, downcast; eye contact avoidant; Speech is a little slowed and a little soft; psychomotor retardation present; thought process is organized and goal directed; Thought content is on tx and struggles with cycle of addiction; otherwise pertinent to relevant topics and without any delusional content, paranoid ideations or grandiosity; denies any SI/HI. Denies AVH and there is no evidence of perceptual disturbance. Patients insight and judgment improving Diagnostics Vital Signs (24Hr): Vital Signs - 24 hr 03/13/25 14:03 03/13/25 21:04 03/13/25 21:06 Temperature Pulse Rate Respiratory Rate Blood Pressure 134/81 123/79 123/79 Pulse Oximetry Oxygen Delivery Method 03/13/25 21:15 03/14/25 08:11 Temperature 97.9 F 97.5 F Pulse Rate 97 65 Respiratory Rate 16 16 Blood Pressure 123/79 127/79 Pulse Oximetry 98 97 Oxygen Delivery Method Room Air Room Air BMI result Body Mass Index 39.8 Labs 03/11/25 05:47 03/13/25 07:43 Labs: Laboratory Results - last 48 hr 03/13/25 07:43 Sodium 143 Potassium 4.4 Chloride 109 H Carbon Dioxide 23 Anion Gap 15 BUN 16 Creatinine 0.76 Estim Creat Clear Calc 206.0 Estimated GFR > 60 Random Glucose 81 Estimat Average Glucose 103 Hemoglobin A1c % 5.2 Calcium 8.8 D Total Bilirubin 0.3 AST 120 H ALT 74 H Alkaline Phosphatase 87 Total Protein 6.9 Albumin 4.1 Triglycerides 445 H Cholesterol 231 H LDL Cholesterol, Calc TNP HDL Cholesterol 38 L TSH 2.20 Medications Medications Current Medications Acetaminophen (Acetaminophen 325 Mg Tablet) 650 mg PO Q6H PRN PRN Reason: Headache/Pain, Scale 1-10 Last Admin: 03/14/25 08:10 Dose: 650 mg Al Hydroxide/Mg Hydroxide (Magnesium Hydrox/Alum Hydrox 30 Ml Oral.Susp) 30 ml PO Q6H PRN PRN Reason: Heartburn/Nausea Baclofen (Baclofen 10 Mg Tablet) 10 mg PO TID [facility] Last Admin: 03/14/25 08:07 Dose: 10 mg Cephalexin HCl (Cephalexin 500 Mg Capsule) 500 mg PO BID [facility] Last Admin: 03/14/25 08:08 Dose: 500 mg Chlorpromazine HCl (Chlorpromazine Hcl 25 Mg Tablet) 25 mg PO BID PRN PRN Reason: for moderate anxiety Last Admin: 03/14/25 09:22 Dose: 25 mg Clonazepam (Clonazepam 1 Mg Tablet) 1 mg PO BID [facility] Last Admin: 03/14/25 08:08 Dose: 1 mg Clonidine HCl (Clonidine Hcl 0.1 Mg Tablet) 0.1 mg PO TID [facility]; Protocol Last Admin: 03/14/25 08:13 Dose: 0.1 mg Doxepin HCl (Doxepin Hcl 25 Mg Capsule) 50 mg PO BEDTIME [facility] Last Admin: 03/13/25 21:06 Dose: 50 mg Doxycycline Monohydrate (Doxycycline Monohydrate 100 Mg Capsule) 100 mg PO BID [facility] Last Admin: 03/14/25 08:09 Dose: 100 mg Fenofibrate (Fenofibrate 160 Mg Tablet) 160 mg PO DAILY [facility] Last Admin: 03/14/25 08:07 Dose: 160 mg Hydroxyzine HCl (Hydroxyzine Hcl 25 Mg Tablet) 25 mg PO Q6H PRN PRN Reason: mild anxiety Last Admin: 03/13/25 21:05 Dose: 25 mg Lurasidone HCl (Lurasidone Hcl 40 Mg Tablet) 40 mg PO DAILY@1700 [facility] Last Admin: 03/13/25 17:54 Dose: 40 mg Magnesium Hydroxide (Milk Of Magnesia 30 Ml Oral.Susp) 30 ml PO DAILY PRN PRN Reason: Constipation Metformin HCl (Metformin Hcl Er 500 Mg Tab.Er.24h) 500 mg PO DAILY@1700 [facility] Last Admin: 03/13/25 17:54 Dose: 500 mg Methadone HCl (Methadone Hcl 20 Mg/2 Ml Oral.Conc) 205 mg PO DAILY@0800 [facility] Last Admin: 03/14/25 07:56 Dose: 205 mg Mirtazapine (Mirtazapine 15 Mg Tablet) 45 mg PO BEDTIME [facility] Last Admin: 03/13/25 21:05 Dose: 45 mg Nicotine (Nicotine 21 Mg Patch.Td24) 21 mg TRANSDERMA DAILY PRN PRN Reason: smoking cessation Nicotine Polacrilex (Nicotine Polacrilex 2 Mg Gum) 4 mg BUCCAL Q2H PRN PRN Reason: nicotine cravings Last Admin: 03/14/25 09:22 Dose: 4 mg Olanzapine (Olanzapine 5 Mg Tablet) 5 mg PO TID PRN PRN Reason: anxiety/agitation Last Admin: 03/13/25 08:36 Dose: 5 mg Olanzapine (Olanzapine 2.5 Mg Tablet) 2.5 mg PO TID [facility] Last Admin: 03/14/25 08:07 Dose: 2.5 mg Omeprazole (Omeprazole 20 Mg Capsule.Dr) 20 mg PO DAILY@0630 [facility] Last Admin: 03/14/25 06:08 Dose: 20 mg Prazosin HCl (Prazosin Hcl 1 Mg Capsule) 3 mg PO BEDTIME [facility]; Protocol Last Admin: 03/13/25 21:04 Dose: 3 mg Promethazine HCl (Promethazine Hcl 25 Mg Tablet) 12.5 mg PO TID PRN PRN Reason: Nausea and Vomiting Last Admin: 03/14/25 08:09 Dose: 12.5 mg Trazodone HCl (Trazodone Hcl 50 Mg Tablet) 50 mg PO BEDTIME MRX1 PRN PRN Reason: Insomnia Venlafaxine HCl (Venlafaxine Hcl Er 150 Mg Cap.Er.24h) 150 mg PO DAILY [facility] Last Admin: 03/14/25 08:07 Dose: 150 mg Allergies Allergies Allergy/AdvReac Type Severity Reaction Status Date / Time No Known Allergies (No Known Allergy Verified 03/11/25 03:16 Allergies*) Assessment & Plan Assessment & Plan (1) MDD (major depressive disorder), recurrent severe, without psychosis: Status: Acute Code(s): F33.2 - Major depressive disorder, recurrent severe without psychotic features (2) PTSD (post-traumatic stress disorder): Status: Acute Code(s): F43.10 - Post-traumatic stress disorder, unspecified (3) Anxiety: Status: Acute Code(s): F41.9 - Anxiety disorder, unspecified (4) Opioid use disorder, severe, on maintenance therapy: Status: Acute Code(s): F11.20 - Opioid dependence, uncomplicated Plan HPI: Patient is a 25-year-old male with history of depression, anxiety, cyclical vomiting, PTSD opiate use disorder who presents for depression with vague SI in the face of relapse. Patient reports this past December, his roommate accidentally OD'd in the basement of their shared apartment, patient found the body. Since then he has felt somewhat dysregulated, accidentally overtook lithium and got rhabdo and lithium was discontinued. Patient reports that he recently discharged from on 02/06 any went to respite; from respite he went to his aunt's (and used for 1day) until he got into [facility]. Patient was discharged after a week which he did not find that helpful. He says he got to [place] that afternoon, used opiates and had some vague suicidal thoughts and passively attempted suicide , saying that he was using a lot of heroin, realizing he could possibly overdose, thinking that if he makes it through he will go to the hospital. He reports that while sober he remains depressed but not too badly; he remains struggling with significant anxiety which he says drives him to use much of the time. Reviewed history and again it does not seem that patient has bipolar disorder but rather anxiety seems to be the most dysregulated factor. Formulation/clinical reasoning: Chronic substance abuse. Patient's pattern is to remain sober while in some type of program or hospitalization, will get discharged and use for couple days and then get back into some type of program; thus progress keeps getting interrupted every few weeks. Medications seem to be moderately helpful. Seems what is most missing his consistent outpatient therapy in the setting of consistent sobriety. Patient feels that Latuda 20 mg has been helpful for his depression and says his parents notice this as well; agrees to increase dose History of anabolic steroid use as a teenager and in his 20s; worries that he has low testosterone; lab ordered; this could be contributing to depression (testosterone also lowered by chronic opioid use) Discussed elevated triglycerides 445 and patient agrees to start fenofibrate (reviewed risks/side effects); elevated cholesterol but holding off on atorvastatin since it was discontinued when patient got a rhabdo this past December Patient talks about struggles with urinary flow; discussed Flomax but patient will hold off for now Discussed metabolic syndrome; patient now taking Zyprexa and patient agrees to start metformin after reviewing risks/side effects Patient asked for clonazepam to be increase; specification writer decided to leave it at 1 mg b.i.d. which he has been on for 2 years and explained that patient mostly needs therapy rather than medication management hospital course: 03/14 pt depressed and with much anxiety; tolerating increased Latuda. Discussed options and he agreed to try buspar; he has tried buspar before and remembers it being helpful. Plan: CV Q 15 minute checks Start Buspar 5mg Tid Continue home medications with some exceptions Increase Latuda to 40 mg at 17:00 with food for depression Change Thorazine to p.r.n. and instead add Zyprexa Start Zyprexa 2.5 mg t.i.d. with p.r.n. available; being used for anxiety (patient feels higher dose of venlafaxine to activating) Start fenofibrate 160 mg daily -will check LFTs which are a little elevated; (Hold off on starting statin; patient got rhabdo in December and though it was presumed to be lithium, patient was also taking atorvastatin at the time) Start metformin ER at 17:00 for metabolic syndrome Testosterone lab Patient educated on: diagnosis, medication risk/benefits, substance abuse and therapeutic strategies Informed Consent: understands Reason for continued inpatient stay Substantial Risk for: rapid decompensation Time Spent With Patient Time: Total time managing care of this patient today ____ minutes.
[2025-03-14 14:47] VITALS: BP 127/62; PULSE 80
[2025-03-14 20:00] VITALS: BP 140/61; PULSE 105; RESP 19; TEMP 36.9; O2SAT 100
[2025-03-15] MEDS: methADONE HCl 20 MG/2 ML ORAL.CONC 205 MG PO (07:50)
[2025-03-15] MEDS: Venlafaxine HCl ER 150 MG CAP.ER.24H PO (08:22)
[2025-03-15 08:31] VITALS: BP 125/78; PULSE 95; RESP 16; TEMP 36.3; O2SAT 96
--- NOTE | 2025-03-15 10:04 | HO.PSYCHPN ---
Subjective Subjective Date of Service: 03/15/25 Reason For Visit: SI Subjective Notes: Conditional Voluntary Healthcare Proxy: No Guardianship: No Medical Problems Affecting Mental Status: No Interim History: Pt discussed current stressors and symptoms. Anxiety is a main sx. He would like Klonopin increase. Buspirone has been initiated, will titrate to augment for anxiolytic effects. Looking for a program post discharge. Asked to consider what his needs are for a program in addition to housing. Medication Compliance: Yes Side effects from medications: No Attending Groups: Intermittent Review of Systems Acute medical concerns: No Medical Review of Systems: unchanged Review of Systems Review of Systems Anxious, tired Mental Status Exam Mental Status Exam Patient Appearance: Disheveled Patient Orientation: Person, Place, Time and Situation Level of Consciousness: Alert Patient Behavior: Appropriate, Talkative, Cooperative and Good Eye Contact Mood Description: Anxious Affect Description: Anxious Patient Cognition Impaired: No Ability to Follow Directions: Good Speech Pattern: Spontaneous Speech Memory Description: Intact Hallucinations: None Delusions: Not Present Thought Process: Distracted and Goal Oriented Thought Content: positive for Goal Oriented and positive for Perseveration Depressive Symptoms: Increased Anxiety Judgement: Fair Diagnostics Vital Signs (24Hr): Vital Signs - 24 hr 03/14/25 14:47 03/14/25 20:00 03/15/25 08:31 Temperature 98.4 F 97.3 F Pulse Rate 80 105 H 95 Respiratory Rate 19 16 Blood Pressure 127/62 140/61 H 125/78 Pulse Oximetry 100 96 Oxygen Delivery Method Room Air Room Air BMI result Body Mass Index 39.8 Labs 03/11/25 05:47 03/13/25 07:43 Medications Medications Current Medications Acetaminophen (Acetaminophen 325 Mg Tablet) 650 mg PO Q6H PRN PRN Reason: Headache/Pain, Scale 1-10 Last Admin: 03/15/25 08:22 Dose: 650 mg Al Hydroxide/Mg Hydroxide (Magnesium Hydrox/Alum Hydrox 30 Ml Oral.Susp) 30 ml PO Q6H PRN PRN Reason: Heartburn/Nausea Baclofen (Baclofen 10 Mg Tablet) 10 mg PO TID [facility] Last Admin: 03/15/25 08:22 Dose: 10 mg Buspirone HCl (Buspirone Hcl 5 Mg Tablet) 5 mg PO TID [facility] Last Admin: 03/15/25 08:22 Dose: 5 mg Cephalexin HCl (Cephalexin 500 Mg Capsule) 500 mg PO BID [facility] Last Admin: 03/15/25 08:22 Dose: 500 mg Chlorpromazine HCl (Chlorpromazine Hcl 25 Mg Tablet) 25 mg PO BID PRN PRN Reason: for moderate anxiety Last Admin: 03/14/25 20:57 Dose: 25 mg Clonazepam (Clonazepam 1 Mg Tablet) 1 mg PO BID [facility] Last Admin: 03/15/25 08:22 Dose: 1 mg Clonidine HCl (Clonidine Hcl 0.1 Mg Tablet) 0.1 mg PO TID [facility]; Protocol Last Admin: 03/15/25 08:22 Dose: 0.1 mg Doxepin HCl (Doxepin Hcl 25 Mg Capsule) 50 mg PO BEDTIME [facility] Last Admin: 03/14/25 20:56 Dose: 50 mg Doxycycline Monohydrate (Doxycycline Monohydrate 100 Mg Capsule) 100 mg PO BID [facility] Last Admin: 03/15/25 08:22 Dose: 100 mg Fenofibrate (Fenofibrate 160 Mg Tablet) 160 mg PO DAILY [facility] Last Admin: 03/15/25 08:22 Dose: 160 mg Hydroxyzine HCl (Hydroxyzine Hcl 25 Mg Tablet) 25 mg PO Q6H PRN PRN Reason: mild anxiety Last Admin: 03/13/25 21:05 Dose: 25 mg Lurasidone HCl (Lurasidone Hcl 40 Mg Tablet) 40 mg PO DAILY@1700 [facility] Last Admin: 03/14/25 17:53 Dose: 40 mg Magnesium Hydroxide (Milk Of Magnesia 30 Ml Oral.Susp) 30 ml PO DAILY PRN PRN Reason: Constipation Metformin HCl (Metformin Hcl Er 500 Mg Tab.Er.24h) 500 mg PO DAILY@1700 [facility] Last Admin: 03/14/25 17:17 Dose: 500 mg Methadone HCl (Methadone Hcl 20 Mg/2 Ml Oral.Conc) 205 mg PO DAILY@0800 [facility] Last Admin: 03/15/25 07:50 Dose: 205 mg Mirtazapine (Mirtazapine 15 Mg Tablet) 45 mg PO BEDTIME [facility] Last Admin: 03/14/25 20:56 Dose: 45 mg Nicotine (Nicotine 21 Mg Patch.Td24) 21 mg TRANSDERMA DAILY PRN PRN Reason: smoking cessation Nicotine Polacrilex (Nicotine Polacrilex 2 Mg Gum) 4 mg BUCCAL Q2H PRN PRN Reason: nicotine cravings Last Admin: 03/15/25 08:22 Dose: 4 mg Olanzapine (Olanzapine 5 Mg Tablet) 5 mg PO TID PRN PRN Reason: anxiety/agitation Last Admin: 03/13/25 08:36 Dose: 5 mg Olanzapine (Olanzapine 2.5 Mg Tablet) 2.5 mg PO TID [facility] Last Admin: 03/15/25 08:22 Dose: 2.5 mg Omeprazole (Omeprazole 20 Mg Capsule.Dr) 20 mg PO DAILY@0630 [facility] Last Admin: 03/15/25 06:54 Dose: 20 mg Prazosin HCl (Prazosin Hcl 1 Mg Capsule) 3 mg PO BEDTIME [facility]; Protocol Last Admin: 03/14/25 20:57 Dose: 3 mg Promethazine HCl (Promethazine Hcl 25 Mg Tablet) 12.5 mg PO TID PRN PRN Reason: Nausea and Vomiting Last Admin: 03/15/25 08:54 Dose: 12.5 mg Trazodone HCl (Trazodone Hcl 50 Mg Tablet) 50 mg PO BEDTIME MRX1 PRN PRN Reason: Insomnia Venlafaxine HCl (Venlafaxine Hcl Er 150 Mg Cap.Er.24h) 150 mg PO DAILY [facility] Last Admin: 03/15/25 08:22 Dose: 150 mg Allergies Allergies Allergy/AdvReac Type Severity Reaction Status Date / Time No Known Allergies (No Known Allergy Verified 03/11/25 03:16 Allergies*) Assessment & Plan Assessment & Plan (1) MDD (major depressive disorder), recurrent severe, without psychosis: Status: Acute Code(s): F33.2 - Major depressive disorder, recurrent severe without psychotic features (2) PTSD (post-traumatic stress disorder): Status: Acute Code(s): F43.10 - Post-traumatic stress disorder, unspecified (3) Anxiety: Status: Acute Code(s): F41.9 - Anxiety disorder, unspecified (4) Opioid use disorder, severe, on maintenance therapy: Status: Acute Code(s): F11.20 - Opioid dependence, uncomplicated Plan HPI: Patient is a 25-year-old male with history of depression, anxiety, cyclical vomiting, PTSD opiate use disorder who presents for depression with vague SI in the face of relapse. Patient reports this past December, his roommate accidentally OD'd in the basement of their shared apartment, patient found the body. Since then he has felt somewhat dysregulated, accidentally overtook lithium and got rhabdo and lithium was discontinued. Patient reports that he recently discharged from on 02/06 any went to respite; from respite he went to his aunt's (and used for 1day) until he got into [facility]. Patient was discharged after a week which he did not find that helpful. He says he got to [place] that afternoon, used opiates and had some vague suicidal thoughts and passively attempted suicide , saying that he was using a lot of heroin, realizing he could possibly overdose, thinking that if he makes it through he will go to the hospital. He reports that while sober he remains depressed but not too badly; he remains struggling with significant anxiety which he says drives him to use much of the time. Reviewed history and again it does not seem that patient has bipolar disorder but rather anxiety seems to be the most dysregulated factor. Formulation/clinical reasoning: Chronic substance abuse. Patient's pattern is to remain sober while in some type of program or hospitalization, will get discharged and use for couple days and then get back into some type of program; thus progress keeps getting interrupted every few weeks. Medications seem to be moderately helpful. Seems what is most missing his consistent outpatient therapy in the setting of consistent sobriety. Patient feels that Latuda 20 mg has been helpful for his depression and says his parents notice this as well; agrees to increase dose History of anabolic steroid use as a teenager and in his 20s; worries that he has low testosterone; lab ordered; this could be contributing to depression (testosterone also lowered by chronic opioid use) Discussed elevated triglycerides 445 and patient agrees to start fenofibrate (reviewed risks/side effects); elevated cholesterol but holding off on atorvastatin since it was discontinued when patient got a rhabdo this past December Patient talks about struggles with urinary flow; discussed Flomax but patient will hold off for now Discussed metabolic syndrome; patient now taking Zyprexa and patient agrees to start metformin after reviewing risks/side effects Patient asked for clonazepam to be increase; information writer decided to leave it at 1 mg b.i.d. which he has been on for 2 years and explained that patient mostly needs therapy rather than medication management hospital course: 03/14 pt depressed and with much anxiety; tolerating increased Latuda. Discussed options and he agreed to try buspar; he has tried buspar before and remembers it being helpful. 03/15. Increase buspirone on 03/16 to 10 mg tid Plan: CV Q 15 minute checks Start Buspar 5mg Tid Continue home medications with some exceptions Increase Latuda to 40 mg at 17:00 with food for depression Change Thorazine to p.r.n. and instead add Zyprexa Start Zyprexa 2.5 mg t.i.d. with p.r.n. available; being used for anxiety (patient feels higher dose of venlafaxine to activating) Start fenofibrate 160 mg daily -will check LFTs which are a little elevated; (Hold off on starting statin; patient got rhabdo in December and though it was presumed to be lithium, patient was also taking atorvastatin at the time) Start metformin ER at 17:00 for metabolic syndrome Testosterone lab Reason for continued inpatient stay Substantial Risk for: rapid decompensation Time Spent With Patient Time: Total time managing care of this patient today ____ minutes.
[2025-03-15 14:32] VITALS: BP 136/86; PULSE 111
--- NOTE | 2025-03-15 17:54 | MHC.RECOVRN ---
Tw met with pt in 510 after a consult was placed to Addiction Medicine for substance use. Subsequently, met with pt to? discuss substance use, provide recovery supports, and discuss concerns related to increased risk of substance use related problems. On approach, pt was laying in bed, and presented as sleeping, but did wake to name being called. Pt was agreeable to meeting with TW. He denies withdrawal symptoms and reports feeling depressed and anxious but otherwise, ?OK?.? Pt reports using 5-10 bundles of fentanyl and one 8ball of cocaine ?maybe once or twice a month for the past few years. Pt is also currently dosed with 205 mg of Methadone at [facility] in [place]. He also reports several overdoses that have required the use of Narcan.? Pt states he continues to use illicit substances due to multiple life stressors, PTSD, and being unhoused.? Pt reports several past ATS and CSS admissions but was unable to recall dates or facility names. He states he had 1.5 years of abstinence with the help of his [facility] clinic and an ex-girlfriend who was abstinent as well his? utilizing his DM and [employer] workers Pt has a family history of substance use and mental health disorders on both his maternal and paternal sides. He state his mother is ?sober right now? Discussed how substance use has impacted health, including negative impact on mental health and overall physical well being.? Discussed and provided written education and resources for harm reduction techniques including utilizing [employer] for sterile supplies and drug testing, harm reduction techniques such as not sharing needles, utilizing a test shot when using a supply from a new supplier, and the importance of seeking medical help for wound care as well as education about the current drug supply and cutting agents used. Pt reports a desire to enter treatment upon discharge and states his SW is helping to enter referrals on his behalf. He declined a referral for recovery coaching at this time and plans to continue being dosed in the community. Pt was provided with TW?s contact information if questions or concerns arise. Pt denies further questions or concerns at this time.?
[2025-03-15 20:05] VITALS: BP 125/71; PULSE 75; RESP 18; TEMP 36.8; O2SAT 97
[2025-03-15 20:30] VITALS: BP 125/71
[2025-03-15 20:33] VITALS: BP 125/71
[2025-03-16] MEDS: methADONE HCl 20 MG/2 ML ORAL.CONC 205 MG PO (07:53)
[2025-03-16 08:00] VITALS: BP 102/60; PULSE 69; RESP 16; TEMP 36.8; O2SAT 96
[2025-03-16] MEDS: Venlafaxine HCl ER 150 MG CAP.ER.24H PO (08:16)
--- NOTE | 2025-03-16 10:37 | HO.PSYCHPN ---
Subjective Subjective Date of Service: 03/16/25 Reason For Visit: SI Subjective Notes: Conditional Voluntary Healthcare Proxy: No Guardianship: No Medical Problems Affecting Mental Status: No Interim History: Tolerating buspirone increase. Attending groups Spent most of the day in bed-sound asleep when tw attempted to meet with pt later in the afternoon. Team reports isolative with depressive sx present. Pt interested in a program post discharge. Medication Compliance: Yes Side effects from medications: No Attending Groups: Yes Review of Systems Acute medical concerns: No Medical Review of Systems: unchanged Review of Systems Review of Systems Feeling tired today. Mental Status Exam Mental Status Exam Patient Appearance: Disheveled Patient Orientation: Person, Place, Time and Situation Level of Consciousness: Alert Patient Behavior: Appropriate, Talkative, Cooperative and Good Eye Contact Mood Description: Anxious Affect Description: Anxious Patient Cognition Impaired: No Ability to Follow Directions: Good Speech Pattern: Spontaneous Speech Memory Description: Intact Hallucinations: None Delusions: Not Present Thought Process: Distracted and Goal Oriented Thought Content: positive for Goal Oriented and positive for Perseveration Depressive Symptoms: Increased Anxiety Judgement: Fair Diagnostics Vital Signs (24Hr): Vital Signs - 24 hr 03/15/25 14:32 03/15/25 20:05 03/15/25 20:30 Temperature 98.2 F Pulse Rate 111 H 75 Respiratory Rate 18 Blood Pressure 136/86 125/71 125/71 Pulse Oximetry 97 Oxygen Delivery Method Room Air 03/15/25 20:33 03/16/25 08:00 Temperature 98.2 F Pulse Rate 69 Respiratory Rate 16 Blood Pressure 125/71 102/60 Pulse Oximetry 96 Oxygen Delivery Method Room Air BMI result Body Mass Index 39.8 Labs 03/11/25 05:47 03/13/25 07:43 Medications Medications Current Medications Acetaminophen (Acetaminophen 325 Mg Tablet) 650 mg PO Q6H PRN PRN Reason: Headache/Pain, Scale 1-10 Last Admin: 03/15/25 20:35 Dose: 650 mg Al Hydroxide/Mg Hydroxide (Magnesium Hydrox/Alum Hydrox 30 Ml Oral.Susp) 30 ml PO Q6H PRN PRN Reason: Heartburn/Nausea Baclofen (Baclofen 10 Mg Tablet) 10 mg PO TID [facility] Last Admin: 03/16/25 08:16 Dose: 10 mg Buspirone HCl (Buspirone Hcl 10 Mg Tablet) 10 mg PO TID [facility] Last Admin: 03/16/25 08:16 Dose: 10 mg Cephalexin HCl (Cephalexin 500 Mg Capsule) 500 mg PO BID [facility] Last Admin: 03/16/25 08:15 Dose: 500 mg Chlorpromazine HCl (Chlorpromazine Hcl 25 Mg Tablet) 25 mg PO BID PRN PRN Reason: for moderate anxiety Last Admin: 03/15/25 20:34 Dose: 25 mg Clonazepam (Clonazepam 1 Mg Tablet) 1 mg PO BID [facility] Last Admin: 03/16/25 08:16 Dose: 1 mg Clonidine HCl (Clonidine Hcl 0.1 Mg Tablet) 0.1 mg PO TID [facility]; Protocol Last Admin: 03/16/25 08:16 Dose: 0.1 mg Doxepin HCl (Doxepin Hcl 25 Mg Capsule) 50 mg PO BEDTIME [facility] Last Admin: 03/15/25 20:31 Dose: 50 mg Doxycycline Monohydrate (Doxycycline Monohydrate 100 Mg Capsule) 100 mg PO BID [facility] Last Admin: 03/16/25 08:15 Dose: 100 mg Fenofibrate (Fenofibrate 160 Mg Tablet) 160 mg PO DAILY [facility] Last Admin: 03/16/25 08:15 Dose: 160 mg Hydroxyzine HCl (Hydroxyzine Hcl 25 Mg Tablet) 25 mg PO Q6H PRN PRN Reason: mild anxiety Last Admin: 03/15/25 20:34 Dose: 25 mg Lurasidone HCl (Lurasidone Hcl 40 Mg Tablet) 40 mg PO DAILY@1700 [facility] Last Admin: 03/15/25 17:29 Dose: 40 mg Magnesium Hydroxide (Milk Of Magnesia 30 Ml Oral.Susp) 30 ml PO DAILY PRN PRN Reason: Constipation Metformin HCl (Metformin Hcl Er 500 Mg Tab.Er.24h) 500 mg PO DAILY@1700 [facility] Last Admin: 03/15/25 17:29 Dose: 500 mg Methadone HCl (Methadone Hcl 20 Mg/2 Ml Oral.Conc) 205 mg PO DAILY@0800 [facility] Last Admin: 03/16/25 07:53 Dose: 205 mg Mirtazapine (Mirtazapine 15 Mg Tablet) 45 mg PO BEDTIME [facility] Last Admin: 03/15/25 20:37 Dose: 45 mg Nicotine (Nicotine 21 Mg Patch.Td24) 21 mg TRANSDERMA DAILY PRN PRN Reason: smoking cessation Nicotine Polacrilex (Nicotine Polacrilex 2 Mg Gum) 4 mg BUCCAL Q2H PRN PRN Reason: nicotine cravings Last Admin: 03/16/25 08:15 Dose: 4 mg Olanzapine (Olanzapine 5 Mg Tablet) 5 mg PO TID PRN PRN Reason: anxiety/agitation Last Admin: 03/13/25 08:36 Dose: 5 mg Olanzapine (Olanzapine 2.5 Mg Tablet) 2.5 mg PO TID [facility] Last Admin: 03/16/25 08:15 Dose: 2.5 mg Omeprazole (Omeprazole 20 Mg Capsule.Dr) 20 mg PO DAILY@0630 [facility] Last Admin: 03/16/25 06:16 Dose: 20 mg Prazosin HCl (Prazosin Hcl 1 Mg Capsule) 3 mg PO BEDTIME [facility]; Protocol Last Admin: 03/15/25 20:33 Dose: 3 mg Promethazine HCl (Promethazine Hcl 25 Mg Tablet) 12.5 mg PO TID PRN PRN Reason: Nausea and Vomiting Last Admin: 03/16/25 08:15 Dose: 12.5 mg Trazodone HCl (Trazodone Hcl 50 Mg Tablet) 50 mg PO BEDTIME MRX1 PRN PRN Reason: Insomnia Venlafaxine HCl (Venlafaxine Hcl Er 150 Mg Cap.Er.24h) 150 mg PO DAILY [facility] Last Admin: 03/16/25 08:16 Dose: 150 mg Allergies Allergies Allergy/AdvReac Type Severity Reaction Status Date / Time No Known Allergies (No Known Allergy Verified 03/11/25 03:16 Allergies*) Assessment & Plan Assessment & Plan (1) MDD (major depressive disorder), recurrent severe, without psychosis: Status: Acute Code(s): F33.2 - Major depressive disorder, recurrent severe without psychotic features (2) PTSD (post-traumatic stress disorder): Status: Acute Code(s): F43.10 - Post-traumatic stress disorder, unspecified (3) Anxiety: Status: Acute Code(s): F41.9 - Anxiety disorder, unspecified (4) Opioid use disorder, severe, on maintenance therapy: Status: Acute Code(s): F11.20 - Opioid dependence, uncomplicated Plan HPI: Patient is a 25-year-old male with history of depression, anxiety, cyclical vomiting, PTSD opiate use disorder who presents for depression with vague SI in the face of relapse. Patient reports this past December, his roommate accidentally OD'd in the basement of their shared apartment, patient found the body. Since then he has felt somewhat dysregulated, accidentally overtook lithium and got rhabdo and lithium was discontinued. Patient reports that he recently discharged from on 02/06 any went to respite; from respite he went to his aunt's (and used for 1day) until he got into [facility]. Patient was discharged after a week which he did not find that helpful. He says he got to [place] that afternoon, used opiates and had some vague suicidal thoughts and passively attempted suicide , saying that he was using a lot of heroin, realizing he could possibly overdose, thinking that if he makes it through he will go to the hospital. He reports that while sober he remains depressed but not too badly; he remains struggling with significant anxiety which he says drives him to use much of the time. Reviewed history and again it does not seem that patient has bipolar disorder but rather anxiety seems to be the most dysregulated factor. Formulation/clinical reasoning: Chronic substance abuse. Patient's pattern is to remain sober while in some type of program or hospitalization, will get discharged and use for couple days and then get back into some type of program; thus progress keeps getting interrupted every few weeks. Medications seem to be moderately helpful. Seems what is most missing his consistent outpatient therapy in the setting of consistent sobriety. Patient feels that Latuda 20 mg has been helpful for his depression and says his parents notice this as well; agrees to increase dose History of anabolic steroid use as a teenager and in his 20s; worries that he has low testosterone; lab ordered; this could be contributing to depression (testosterone also lowered by chronic opioid use) Discussed elevated triglycerides 445 and patient agrees to start fenofibrate (reviewed risks/side effects); elevated cholesterol but holding off on atorvastatin since it was discontinued when patient got a rhabdo this past December Patient talks about struggles with urinary flow; discussed Flomax but patient will hold off for now Discussed metabolic syndrome; patient now taking Zyprexa and patient agrees to start metformin after reviewing risks/side effects Patient asked for clonazepam to be increase; proposal writer decided to leave it at 1 mg b.i.d. which he has been on for 2 years and explained that patient mostly needs therapy rather than medication management hospital course: 10/14 pt depressed and with much anxiety; tolerating increased Latuda. Discussed options and he agreed to try buspar; he has tried buspar before and remembers it being helpful. 03/15. Increase buspirone on 03/16 to 10 mg tid 03/16: Continue tx Plan: CV Q 15 minute checks Start Buspar 5mg Tid Continue home medications with some exceptions Increase Latuda to 40 mg at 17:00 with food for depression Change Thorazine to p.r.n. and instead add Zyprexa Start Zyprexa 2.5 mg t.i.d. with p.r.n. available; being used for anxiety (patient feels higher dose of venlafaxine to activating) Start fenofibrate 160 mg daily -will check LFTs which are a little elevated; (Hold off on starting statin; patient got rhabdo in December and though it was presumed to be lithium, patient was also taking atorvastatin at the time) Start metformin ER at 17:00 for metabolic syndrome Testosterone lab Reason for continued inpatient stay Substantial Risk for: rapid decompensation Time Spent With Patient Time: Total time managing care of this patient today ____ minutes.
[2025-03-16 15:13] VITALS: BP 129/70
[2025-03-16 20:00] VITALS: BP 132/84; PULSE 118; RESP 16; TEMP 36.4; O2SAT 98
[2025-03-17 08:00] VITALS: BP 113/68; PULSE 69; RESP 16; TEMP 36.5; O2SAT 99
[2025-03-17] MEDS: methADONE HCl 20 MG/2 ML ORAL.CONC 205 MG PO (08:00)
[2025-03-17 08:10] VITALS: BP 113/68
[2025-03-17] MEDS: Venlafaxine HCl ER 150 MG CAP.ER.24H PO (08:10)
--- NOTE | 2025-03-17 10:33 | P.PNPSI_ITS ---
Subjective Subjective Date of Service: 03/17/25 Reason For Visit: SI Subjective Notes: Conditional Voluntary Healthcare Proxy: No Guardianship: No Medical Problems Affecting Mental Status: No Interim History: Anxiety persists, along with bad dreams about ex-partner. Discussed options. Testosterone levels continue pending. Attending groups, denies depressive sx, but with anergy, flat affect, difficulty managing anxiety. Medication Compliance: Yes Side effects from medications: No Attending Groups: Yes Review of Systems Acute medical concerns: No Medical Review of Systems: unchanged Review of Systems Review of Systems knee pain Mental Status Exam Mental Status Exam Patient Appearance: Disheveled Patient Orientation: Person, Place, Time and Situation Level of Consciousness: Alert Patient Behavior: Appropriate, Talkative, Cooperative and Good Eye Contact Mood Description: Anxious Affect Description: Anxious Patient Cognition Impaired: No Ability to Follow Directions: Good Speech Pattern: Spontaneous Speech Memory Description: Intact Hallucinations: None Delusions: Not Present Thought Process: Distracted and Goal Oriented Thought Content: positive for Goal Oriented and positive for Perseveration Depressive Symptoms: Increased Anxiety Judgement: Fair Diagnostics Vital Signs (24Hr): Vital Signs - 24 hr 03/16/25 15:13 03/16/25 20:00 03/17/25 08:00 Temperature 97.5 F 97.7 F Pulse Rate 118 H 69 Respiratory Rate 16 16 Blood Pressure 129/70 132/84 113/68 Pulse Oximetry 98 99 Oxygen Delivery Method Room Air Room Air 03/17/25 08:10 Temperature Pulse Rate Respiratory Rate Blood Pressure 113/68 Pulse Oximetry Oxygen Delivery Method BMI result Body Mass Index 39.8 Labs 03/11/25 05:47 03/13/25 07:43 Medications Medications Current Medications Acetaminophen (Acetaminophen 325 Mg Tablet) 650 mg PO Q6H PRN PRN Reason: Headache/Pain, Scale 1-10 Last Admin: 03/15/25 20:35 Dose: 650 mg Al Hydroxide/Mg Hydroxide (Magnesium Hydrox/Alum Hydrox 30 Ml Oral.Susp) 30 ml PO Q6H PRN PRN Reason: Heartburn/Nausea Baclofen (Baclofen 10 Mg Tablet) 10 mg PO TID [facility] Last Admin: 03/17/25 08:11 Dose: 10 mg Buspirone HCl (Buspirone Hcl 10 Mg Tablet) 10 mg PO TID [facility] Last Admin: 03/17/25 08:11 Dose: 10 mg Cephalexin HCl (Cephalexin 500 Mg Capsule) 500 mg PO BID [facility] Last Admin: 03/17/25 08:10 Dose: 500 mg Chlorpromazine HCl (Chlorpromazine Hcl 25 Mg Tablet) 25 mg PO BID PRN PRN Reason: for moderate anxiety Last Admin: 03/17/25 08:11 Dose: 25 mg Clonazepam (Clonazepam 1 Mg Tablet) 1 mg PO BID [facility] Last Admin: 03/17/25 08:11 Dose: 1 mg Clonidine HCl (Clonidine Hcl 0.1 Mg Tablet) 0.1 mg PO TID [facility]; Protocol Last Admin: 03/17/25 08:10 Dose: 0.1 mg Doxepin HCl (Doxepin Hcl 25 Mg Capsule) 50 mg PO BEDTIME [facility] Last Admin: 03/16/25 20:43 Dose: 50 mg Doxycycline Monohydrate (Doxycycline Monohydrate 100 Mg Capsule) 100 mg PO BID [facility] Last Admin: 03/17/25 08:11 Dose: 100 mg Fenofibrate (Fenofibrate 160 Mg Tablet) 160 mg PO DAILY [facility] Last Admin: 03/17/25 08:10 Dose: 160 mg Hydroxyzine HCl (Hydroxyzine Hcl 25 Mg Tablet) 25 mg PO Q6H PRN PRN Reason: mild anxiety Last Admin: 03/16/25 20:42 Dose: 25 mg Lurasidone HCl (Lurasidone Hcl 40 Mg Tablet) 40 mg PO DAILY@1700 [facility] Last Admin: 03/16/25 18:14 Dose: 40 mg Magnesium Hydroxide (Milk Of Magnesia 30 Ml Oral.Susp) 30 ml PO DAILY PRN PRN Reason: Constipation Metformin HCl (Metformin Hcl Er 500 Mg Tab.Er.24h) 500 mg PO DAILY@1700 [facility] Last Admin: 03/16/25 18:14 Dose: 500 mg Methadone HCl (Methadone Hcl 20 Mg/2 Ml Oral.Conc) 205 mg PO DAILY@0800 [facility] Last Admin: 03/17/25 08:00 Dose: 205 mg Mirtazapine (Mirtazapine 15 Mg Tablet) 45 mg PO BEDTIME [facility] Last Admin: 03/16/25 20:42 Dose: 45 mg Nicotine (Nicotine 21 Mg Patch.Td24) 21 mg TRANSDERMA DAILY PRN PRN Reason: smoking cessation Nicotine Polacrilex (Nicotine Polacrilex 2 Mg Gum) 4 mg BUCCAL Q2H PRN PRN Reason: nicotine cravings Last Admin: 03/17/25 10:06 Dose: 4 mg Olanzapine (Olanzapine 5 Mg Tablet) 5 mg PO TID PRN PRN Reason: anxiety/agitation Last Admin: 03/13/25 08:36 Dose: 5 mg Olanzapine (Olanzapine 2.5 Mg Tablet) 2.5 mg PO TID [facility] Last Admin: 03/17/25 08:10 Dose: 2.5 mg Omeprazole (Omeprazole 20 Mg Capsule.Dr) 20 mg PO DAILY@0630 [facility] Last Admin: 03/17/25 06:11 Dose: 20 mg Prazosin HCl (Prazosin Hcl 1 Mg Capsule) 3 mg PO BEDTIME [facility]; Protocol Last Admin: 03/16/25 20:41 Dose: 3 mg Promethazine HCl (Promethazine Hcl 25 Mg Tablet) 12.5 mg PO TID PRN PRN Reason: Nausea and Vomiting Last Admin: 03/17/25 08:11 Dose: 12.5 mg Trazodone HCl (Trazodone Hcl 50 Mg Tablet) 50 mg PO BEDTIME MRX1 PRN PRN Reason: Insomnia Venlafaxine HCl (Venlafaxine Hcl Er 150 Mg Cap.Er.24h) 150 mg PO DAILY [facility] Last Admin: 03/17/25 08:10 Dose: 150 mg Allergies Allergies Allergy/AdvReac Type Severity Reaction Status Date / Time No Known Allergies (No Known Allergy Verified 03/11/25 03:16 Allergies*) Assessment & Plan Assessment & Plan (1) MDD (major depressive disorder), recurrent severe, without psychosis: Status: Acute Code(s): F33.2 - Major depressive disorder, recurrent severe without psychotic features (2) PTSD (post-traumatic stress disorder): Status: Acute Code(s): F43.10 - Post-traumatic stress disorder, unspecified (3) Anxiety: Status: Acute Code(s): F41.9 - Anxiety disorder, unspecified (4) Opioid use disorder, severe, on maintenance therapy: Status: Acute Code(s): F11.20 - Opioid dependence, uncomplicated Plan HPI: Patient is a 25-year-old male with history of depression, anxiety, cyclical vomiting, PTSD opiate use disorder who presents for depression with vague SI in the face of relapse. Patient reports this past December, his roommate accidentally OD'd in the basement of their shared apartment, patient found the body. Since then he has felt somewhat dysregulated, accidentally overtook lithium and got rhabdo and lithium was discontinued. Patient reports that he recently discharged from on 02/06 any went to respite; from respite he went to his aunt's (and used for 1day) until he got into [facility]. Patient was discharged after a week which he did not find that helpful. He says he got to [place] that afternoon, used opiates and had some vague suicidal thoughts and passively attempted suicide , saying that he was using a lot of heroin, realizing he could possibly overdose, thinking that if he makes it through he will go to the hospital. He reports that while sober he remains depressed but not too badly; he remains struggling with significant anxiety which he says drives him to use much of the time. Reviewed history and again it does not seem that patient has bipolar disorder but rather anxiety seems to be the most dysregulated factor. Formulation/clinical reasoning: Chronic substance abuse. Patient's pattern is to remain sober while in some type of program or hospitalization, will get discharged and use for couple days and then get back into some type of program; thus progress keeps getting interrupted every few weeks. Medications seem to be moderately helpful. Seems what is most missing his consistent outpatient therapy in the setting of consistent sobriety. Patient feels that Latuda 20 mg has been helpful for his depression and says his parents notice this as well; agrees to increase dose History of anabolic steroid use as a teenager and in his 20s; worries that he has low testosterone; lab ordered; this could be contributing to depression (testosterone also lowered by chronic opioid use) Discussed elevated triglycerides 445 and patient agrees to start fenofibrate (reviewed risks/side effects); elevated cholesterol but holding off on atorvastatin since it was discontinued when patient got a rhabdo this past December Patient talks about struggles with urinary flow; discussed Flomax but patient will hold off for now Discussed metabolic syndrome; patient now taking Zyprexa and patient agrees to start metformin after reviewing risks/side effects Patient asked for clonazepam to be increase; 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 which he has been on for 2 years and explained that patient mostly needs therapy rather than medication management hospital course: 03/14 pt depressed and with much anxiety; tolerati:ng increased Latuda. Discussed options and he agreed to try buspar; he has tried buspar before and remembers it being helpful. 03/15. Increase buspirone on 03/16 to 10 mg tid 03/17: Increase Prazosin to 4 mg HS Gabapentin 300 mg tid trial-knee pain mgt/anxiety trial Pt hoping for program acceptance. Plan: CV Q 15 minute checks Start Buspar 5mg Tid Continue home medications with some exceptions Increase Latuda to 40 mg at 17:00 with food for depression Change Thorazine to p.r.n. and instead add Zyprexa Start Zyprexa 2.5 mg t.i.d. with p.r.n. available; being used for anxiety (patient feels higher dose of venlafaxine to activating) Start fenofibrate 160 mg daily -will check LFTs which are a little elevated; (Hold off on starting statin; patient got rhabdo in December and though it was presumed to be lithium, patient was also taking atorvastatin at the time) Start metformin ER at 17:00 for metabolic syndrome Testosterone lab Reason for continued inpatient stay Substantial Risk for: rapid decompensation Time Spent With Patient Time: Total time managing care of this patient today ____ minutes.
[2025-03-17 17:32] VITALS: BP 112/71
[2025-03-18] MEDS: methADONE HCl 20 MG/2 ML ORAL.CONC 205 MG PO (07:56)
[2025-03-18 08:00] VITALS: BP 124/59; PULSE 74; RESP 16; TEMP 37.1; O2SAT 98
[2025-03-18] MEDS: Venlafaxine HCl ER 150 MG CAP.ER.24H PO (08:02)
--- NOTE | 2025-03-18 10:00 | HO.PSYCHPN ---
Subjective Subjective Date of Service: 03/18/25 Reason For Visit: SI Interim History: Patient reports he is feeling improved today. Medication changes have helped. Says he is less anxious. Attending groups and says they help as well. denies depressive sx. Denies SI/HI/AVH. Review of Systems Review of Systems knee pain Yes all other systems are reviewed and are negative Mental Status Exam Mental Status Exam Narrative: Pt is alert and oriented; behavior is cooperative, quiet, isolative: patient is not in distress; dressed in hospital attire, unkempt, obese; mood is described as depressed and affect congruent, downcast; eye contact avoidant; Speech is a little slowed and a little soft; psychomotor retardation present; thought process is organized and goal directed; Thought content is on tx and struggles with cycle of addiction; otherwise pertinent to relevant topics and without any delusional content, paranoid ideations or grandiosity; denies any SI/HI. Denies AVH and there is no evidence of perceptual disturbance. Patients insight and judgment improving Patient Appearance: Disheveled Patient Orientation: Person, Place, Time and Situation Level of Consciousness: Alert Patient Behavior: Appropriate, Talkative, Cooperative and Good Eye Contact Mood Description: Anxious Affect Description: Anxious Patient Cognition Impaired: No Ability to Follow Directions: Good Speech Pattern: Spontaneous Speech Memory Description: Intact Diagnostics Vital Signs (24Hr): Vital Signs - 24 hr 03/17/25 17:32 03/18/25 08:00 Temperature 98.7 F Pulse Rate 74 Respiratory Rate 16 Blood Pressure 112/71 124/59 L Pulse Oximetry 98 Oxygen Delivery Method Room Air BMI result Body Mass Index 39.8 Labs 03/11/25 05:47 03/13/25 07:43 Medications Medications Current Medications Acetaminophen (Acetaminophen 325 Mg Tablet) 650 mg PO Q6H PRN PRN Reason: Headache/Pain, Scale 1-10 Last Admin: 03/15/25 20:35 Dose: 650 mg Al Hydroxide/Mg Hydroxide (Magnesium Hydrox/Alum Hydrox 30 Ml Oral.Susp) 30 ml PO Q6H PRN PRN Reason: Heartburn/Nausea Baclofen (Baclofen 10 Mg Tablet) 10 mg PO TID [facility] Last Admin: 03/18/25 08:02 Dose: 10 mg Buspirone HCl (Buspirone Hcl 10 Mg Tablet) 10 mg PO TID [facility] Last Admin: 03/18/25 08:02 Dose: 10 mg Cephalexin HCl (Cephalexin 500 Mg Capsule) 500 mg PO BID [facility] Last Admin: 03/18/25 08:32 Dose: 500 mg Chlorpromazine HCl (Chlorpromazine Hcl 25 Mg Tablet) 25 mg PO BID PRN PRN Reason: for moderate anxiety Last Admin: 03/17/25 20:36 Dose: 25 mg Clonazepam (Clonazepam 1 Mg Tablet) 1 mg PO BID [facility] Last Admin: 03/18/25 08:02 Dose: 1 mg Clonidine HCl (Clonidine Hcl 0.1 Mg Tablet) 0.1 mg PO TID [facility]; Protocol Last Admin: 03/18/25 08:02 Dose: 0.1 mg Doxepin HCl (Doxepin Hcl 25 Mg Capsule) 50 mg PO BEDTIME [facility] Last Admin: 03/17/25 20:37 Dose: 50 mg Doxycycline Monohydrate (Doxycycline Monohydrate 100 Mg Capsule) 100 mg PO BID [facility] Last Admin: 03/18/25 08:32 Dose: 100 mg Fenofibrate (Fenofibrate 160 Mg Tablet) 160 mg PO DAILY [facility] Last Admin: 03/18/25 08:02 Dose: 160 mg Gabapentin (Gabapentin 300 Mg Capsule) 300 mg PO TID [facility] Last Admin: 03/18/25 08:01 Dose: 300 mg Hydroxyzine HCl (Hydroxyzine Hcl 25 Mg Tablet) 25 mg PO Q6H PRN PRN Reason: mild anxiety Last Admin: 03/16/25 20:42 Dose: 25 mg Lurasidone HCl (Lurasidone Hcl 40 Mg Tablet) 40 mg PO DAILY@1700 [facility] Last Admin: 03/17/25 17:32 Dose: 40 mg Magnesium Hydroxide (Milk Of Magnesia 30 Ml Oral.Susp) 30 ml PO DAILY PRN PRN Reason: Constipation Metformin HCl (Metformin Hcl Er 500 Mg Tab.Er.24h) 500 mg PO DAILY@1700 [facility] Last Admin: 03/17/25 17:33 Dose: 500 mg Methadone HCl (Methadone Hcl 20 Mg/2 Ml Oral.Conc) 205 mg PO DAILY@0800 [facility] Last Admin: 03/18/25 07:56 Dose: 205 mg Mirtazapine (Mirtazapine 15 Mg Tablet) 45 mg PO BEDTIME [facility] Last Admin: 03/17/25 20:36 Dose: 45 mg Nicotine (Nicotine 21 Mg Patch.Td24) 21 mg TRANSDERMA DAILY PRN PRN Reason: smoking cessation Nicotine Polacrilex (Nicotine Polacrilex 2 Mg Gum) 4 mg BUCCAL Q2H PRN PRN Reason: nicotine cravings Last Admin: 03/18/25 08:03 Dose: 4 mg Olanzapine (Olanzapine 5 Mg Tablet) 5 mg PO TID PRN PRN Reason: anxiety/agitation Last Admin: 03/13/25 08:36 Dose: 5 mg Olanzapine (Olanzapine 2.5 Mg Tablet) 2.5 mg PO TID [facility] Last Admin: 03/18/25 08:02 Dose: 2.5 mg Omeprazole (Omeprazole 20 Mg Capsule.Dr) 20 mg PO DAILY@0630 [facility] Last Admin: 03/18/25 06:18 Dose: 20 mg Prazosin HCl (Prazosin Hcl 1 Mg Capsule) 4 mg PO BEDTIME [facility]; Protocol Last Admin: 03/17/25 20:37 Dose: 4 mg Promethazine HCl (Promethazine Hcl 25 Mg Tablet) 12.5 mg PO TID PRN PRN Reason: Nausea and Vomiting Last Admin: 03/18/25 08:02 Dose: 12.5 mg Trazodone HCl (Trazodone Hcl 50 Mg Tablet) 50 mg PO BEDTIME MRX1 PRN PRN Reason: Insomnia Venlafaxine HCl (Venlafaxine Hcl Er 150 Mg Cap.Er.24h) 150 mg PO DAILY [facility] Last Admin: 03/18/25 08:02 Dose: 150 mg Allergies Allergies Allergy/AdvReac Type Severity Reaction Status Date / Time No Known Allergies (No Known Allergy Verified 03/11/25 03:16 Allergies*) Assessment & Plan Assessment & Plan (1) MDD (major depressive disorder), recurrent severe, without psychosis: Status: Acute Code(s): F33.2 - Major depressive disorder, recurrent severe without psychotic features (2) PTSD (post-traumatic stress disorder): Status: Acute Code(s): F43.10 - Post-traumatic stress disorder, unspecified (3) Anxiety: Status: Acute Code(s): F41.9 - Anxiety disorder, unspecified (4) Opioid use disorder, severe, on maintenance therapy: Status: Acute Code(s): F11.20 - Opioid dependence, uncomplicated Plan HPI: Patient is a 25-year-old male with history of depression, anxiety, cyclical vomiting, PTSD opiate use disorder who presents for depression with vague SI in the face of relapse. Patient reports this past December, his roommate accidentally OD'd in the basement of their shared apartment, patient found the body. Since then he has felt somewhat dysregulated, accidentally overtook lithium and got rhabdo and lithium was discontinued. Patient reports that he recently discharged from on 02/06 any went to respite; from respite he went to his aunt's (and used for 1day) until he got into [facility]. Patient was discharged after a week which he did not find that helpful. He says he got to [place] that afternoon, used opiates and had some vague suicidal thoughts and passively attempted suicide , saying that he was using a lot of heroin, realizing he could possibly overdose, thinking that if he makes it through he will go to the hospital. He reports that while sober he remains depressed but not too badly; he remains struggling with significant anxiety which he says drives him to use much of the time. Reviewed history and again it does not seem that patient has bipolar disorder but rather anxiety seems to be the most dysregulated factor. Formulation/clinical reasoning: Chronic substance abuse. Patient's pattern is to remain sober while in some type of program or hospitalization, will get discharged and use for couple days and then get back into some type of program; thus progress keeps getting interrupted every few weeks. Medications seem to be moderately helpful. Seems what is most missing his consistent outpatient therapy in the setting of consistent sobriety. Patient feels that Latuda 20 mg has been helpful for his depression and says his parents notice this as well; agrees to increase dose History of anabolic steroid use as a teenager and in his 20s; worries that he has low testosterone; lab ordered; this could be contributing to depression (testosterone also lowered by chronic opioid use) Discussed elevated triglycerides 445 and patient agrees to start fenofibrate (reviewed risks/side effects); elevated cholesterol but holding off on atorvastatin since it was discontinued when patient got a rhabdo this past December Patient talks about struggles with urinary flow; discussed Flomax but patient will hold off for now Discussed metabolic syndrome; patient now taking Zyprexa and patient agrees to start metformin after reviewing risks/side effects Patient asked for clonazepam to be increase; 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 which he has been on for 2 years and explained that patient mostly needs therapy rather than medication management hospital course: 03/14 pt depressed and with much anxiety; tolerati:ng increased Latuda. Discussed options and he agreed to try buspar; he has tried buspar before and remembers it being helpful. 03/15. Increase buspirone on 03/16 to 10 mg tid 03/17: Increase Prazosin to 4 mg HS Gabapentin 300 mg tid trial-knee pain mgt/anxiety trial Pt hoping for program acceptance. 03/18: continue current management and treatment plan. Plan: CV Q 15 minute checks Start Buspar 5mg Tid Continue home medications with some exceptions Increase Latuda to 40 mg at 17:00 with food for depression Change Thorazine to p.r.n. and instead add Zyprexa Start Zyprexa 2.5 mg t.i.d. with p.r.n. available; being used for anxiety (patient feels higher dose of venlafaxine to activating) Start fenofibrate 160 mg daily -will check LFTs which are a little elevated; (Hold off on starting statin; patient got rhabdo in December and though it was presumed to be lithium, patient was also taking atorvastatin at the time) Start metformin ER at 17:00 for metabolic syndrome Testosterone lab Reason for continued inpatient stay Substantial Risk for: harm to self, inability to function and rapid decompensation Time Spent With Patient Time: Total time managing care of this patient today ____ minutes.
[2025-03-18 15:25] VITALS: BP 151/105
[2025-03-18 19:43] VITALS: BP 139/85; PULSE 91; RESP 20; TEMP 36.5; O2SAT 97
[2025-03-19 08:00] VITALS: BP 126/74; PULSE 73; TEMP 36.8; O2SAT 97
[2025-03-19] MEDS: methADONE HCl 20 MG/2 ML ORAL.CONC 205 MG PO (08:16)
[2025-03-19] MEDS: Venlafaxine HCl ER 150 MG CAP.ER.24H PO (08:19)
[2025-03-19 08:54] LABS: Testosterone, Free 4.1 pg/mL (35.0-155.0)
--- NOTE | 2025-03-19 09:30 | HO.PSYCHPN ---
Subjective Subjective Date of Service: 03/19/25 Reason For Visit: SI Interim History: Patient is engaged on the unit. Visible. Adherent to medications. Continues to report he is feeling improved. Medication changes have helped. Slept well. Worried about his Klnopin prescription being in another pharmacy in [place] and that upon discharge it is sent to a different pharmacy depending on where he goes. Attending groups. Denies depressive sx. Denies SI/HI/AVH. Review of Systems Review of Systems knee pain Yes all other systems are reviewed and are negative Mental Status Exam Mental Status Exam Narrative: Pt is alert and oriented; behavior is cooperative, quiet, isolative: patient is not in distress; dressed in hospital attire, unkempt, obese; mood is described as depressed and affect congruent, downcast; eye contact avoidant; Speech is a little slowed and a little soft; psychomotor retardation present; thought process is organized and goal directed; Thought content is on tx and struggles with cycle of addiction; otherwise pertinent to relevant topics and without any delusional content, paranoid ideations or grandiosity; denies any SI/HI. Denies AVH and there is no evidence of perceptual disturbance. Patients insight and judgment improving Patient Appearance: Disheveled Patient Orientation: Person, Place, Time and Situation Level of Consciousness: Alert Patient Behavior: Appropriate, Talkative, Cooperative and Good Eye Contact Mood Description: Anxious Affect Description: Anxious Patient Cognition Impaired: No Ability to Follow Directions: Good Speech Pattern: Spontaneous Speech Memory Description: Intact Diagnostics Vital Signs (24Hr): Vital Signs - 24 hr 03/18/25 15:25 03/18/25 19:43 03/19/25 08:00 Temperature 97.7 F 98.2 F Pulse Rate 91 73 Respiratory Rate 20 Blood Pressure 151/105 H 139/85 126/74 Pulse Oximetry 97 97 Oxygen Delivery Method Room Air Room Air BMI result Body Mass Index 39.8 Labs 03/11/25 05:47 03/13/25 07:43 Labs: Laboratory Results - last 48 hr 03/13/25 12:08 Total Testosterone 24 L Fr Testosterone Dialys 4.1 L Medications Medications Current Medications Acetaminophen (Acetaminophen 325 Mg Tablet) 650 mg PO Q6H PRN PRN Reason: Headache/Pain, Scale 1-10 Last Admin: 03/15/25 20:35 Dose: 650 mg Al Hydroxide/Mg Hydroxide (Magnesium Hydrox/Alum Hydrox 30 Ml Oral.Susp) 30 ml PO Q6H PRN PRN Reason: Heartburn/Nausea Baclofen (Baclofen 10 Mg Tablet) 10 mg PO TID [facility] Last Admin: 03/19/25 08:19 Dose: 10 mg Buspirone HCl (Buspirone Hcl 10 Mg Tablet) 10 mg PO TID [facility] Last Admin: 03/19/25 08:19 Dose: 10 mg Cephalexin HCl (Cephalexin 500 Mg Capsule) 500 mg PO BID [facility] Last Admin: 03/19/25 08:19 Dose: 500 mg Chlorpromazine HCl (Chlorpromazine Hcl 25 Mg Tablet) 25 mg PO BID PRN PRN Reason: for moderate anxiety Last Admin: 03/18/25 20:57 Dose: 25 mg Clonazepam (Clonazepam 1 Mg Tablet) 1 mg PO BID [facility] Last Admin: 03/19/25 08:19 Dose: 1 mg Clonidine HCl (Clonidine Hcl 0.1 Mg Tablet) 0.1 mg PO TID [facility]; Protocol Last Admin: 03/19/25 08:19 Dose: 0.1 mg Doxepin HCl (Doxepin Hcl 25 Mg Capsule) 50 mg PO BEDTIME [facility] Last Admin: 03/18/25 20:56 Dose: 50 mg Doxycycline Monohydrate (Doxycycline Monohydrate 100 Mg Capsule) 100 mg PO BID [facility] Last Admin: 03/19/25 08:19 Dose: 100 mg Fenofibrate (Fenofibrate 160 Mg Tablet) 160 mg PO DAILY [facility] Last Admin: 03/19/25 08:19 Dose: 160 mg Gabapentin (Gabapentin 300 Mg Capsule) 300 mg PO TID [facility] Last Admin: 03/19/25 08:19 Dose: 300 mg Hydroxyzine HCl (Hydroxyzine Hcl 25 Mg Tablet) 25 mg PO Q6H PRN PRN Reason: mild anxiety Last Admin: 03/18/25 20:58 Dose: 25 mg Lurasidone HCl (Lurasidone Hcl 40 Mg Tablet) 40 mg PO DAILY@1700 [facility] Last Admin: 03/18/25 17:38 Dose: 40 mg Magnesium Hydroxide (Milk Of Magnesia 30 Ml Oral.Susp) 30 ml PO DAILY PRN PRN Reason: Constipation Metformin HCl (Metformin Hcl Er 500 Mg Tab.Er.24h) 500 mg PO DAILY@1700 [facility] Last Admin: 03/18/25 17:38 Dose: 500 mg Methadone HCl (Methadone Hcl 20 Mg/2 Ml Oral.Conc) 205 mg PO DAILY@0800 [facility] Last Admin: 03/19/25 08:16 Dose: 205 mg Mirtazapine (Mirtazapine 15 Mg Tablet) 45 mg PO BEDTIME [facility] Last Admin: 03/18/25 20:56 Dose: 45 mg Nicotine (Nicotine 21 Mg Patch.Td24) 21 mg TRANSDERMA DAILY PRN PRN Reason: smoking cessation Nicotine Polacrilex (Nicotine Polacrilex 2 Mg Gum) 4 mg BUCCAL Q2H PRN PRN Reason: nicotine cravings Last Admin: 03/19/25 08:19 Dose: 4 mg Olanzapine (Olanzapine 5 Mg Tablet) 5 mg PO TID PRN PRN Reason: anxiety/agitation Last Admin: 03/13/25 08:36 Dose: 5 mg Olanzapine (Olanzapine 2.5 Mg Tablet) 2.5 mg PO TID [facility] Last Admin: 03/19/25 08:19 Dose: 2.5 mg Omeprazole (Omeprazole 20 Mg Capsule.Dr) 20 mg PO DAILY@0630 [facility] Last Admin: 03/19/25 06:33 Dose: 20 mg Prazosin HCl (Prazosin Hcl 1 Mg Capsule) 4 mg PO BEDTIME [facility]; Protocol Last Admin: 03/18/25 20:57 Dose: 4 mg Promethazine HCl (Promethazine Hcl 25 Mg Tablet) 12.5 mg PO TID PRN PRN Reason: Nausea and Vomiting Last Admin: 03/19/25 08:19 Dose: 12.5 mg Trazodone HCl (Trazodone Hcl 50 Mg Tablet) 50 mg PO BEDTIME MRX1 PRN PRN Reason: Insomnia Venlafaxine HCl (Venlafaxine Hcl Er 150 Mg Cap.Er.24h) 150 mg PO DAILY [facility] Last Admin: 03/19/25 08:19 Dose: 150 mg Allergies Allergies Allergy/AdvReac Type Severity Reaction Status Date / Time No Known Allergies (No Known Allergy Verified 03/11/25 03:16 Allergies*) Assessment & Plan Assessment & Plan (1) MDD (major depressive disorder), recurrent severe, without psychosis: Status: Acute Code(s): F33.2 - Major depressive disorder, recurrent severe without psychotic features (2) PTSD (post-traumatic stress disorder): Status: Acute Code(s): F43.10 - Post-traumatic stress disorder, unspecified (3) Anxiety: Status: Acute Code(s): F41.9 - Anxiety disorder, unspecified (4) Opioid use disorder, severe, on maintenance therapy: Status: Acute Code(s): F11.20 - Opioid dependence, uncomplicated Plan HPI: Patient is a 25-year-old male with history of depression, anxiety, cyclical vomiting, PTSD opiate use disorder who presents for depression with vague SI in the face of relapse. Patient reports this past December, his roommate accidentally OD'd in the basement of their shared apartment, patient found the body. Since then he has felt somewhat dysregulated, accidentally overtook lithium and got rhabdo and lithium was discontinued. Patient reports that he recently discharged from on 02/06 any went to respite; from respite he went to his aunt's (and used for 1day) until he got into [facility]. Patient was discharged after a week which he did not find that helpful. He says he got to [place] that afternoon, used opiates and had some vague suicidal thoughts and passively attempted suicide , saying that he was using a lot of heroin, realizing he could possibly overdose, thinking that if he makes it through he will go to the hospital. He reports that while sober he remains depressed but not too badly; he remains struggling with significant anxiety which he says drives him to use much of the time. Reviewed history and again it does not seem that patient has bipolar disorder but rather anxiety seems to be the most dysregulated factor. Formulation/clinical reasoning: Chronic substance abuse. Patient's pattern is to remain sober while in some type of program or hospitalization, will get discharged and use for couple days and then get back into some type of program; thus progress keeps getting interrupted every few weeks. Medications seem to be moderately helpful. Seems what is most missing his consistent outpatient therapy in the setting of consistent sobriety. Patient feels that Latuda 20 mg has been helpful for his depression and says his parents notice this as well; agrees to increase dose History of anabolic steroid use as a teenager and in his 20s; worries that he has low testosterone; lab ordered; this could be contributing to depression (testosterone also lowered by chronic opioid use) Discussed elevated triglycerides 445 and patient agrees to start fenofibrate (reviewed risks/side effects); elevated cholesterol but holding off on atorvastatin since it was discontinued when patient got a rhabdo this past December Patient talks about struggles with urinary flow; discussed Flomax but patient will hold off for now Discussed metabolic syndrome; patient now taking Zyprexa and patient agrees to start metformin after reviewing risks/side effects Patient asked for clonazepam to be increase; 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 which he has been on for 2 years and explained that patient mostly needs therapy rather than medication management hospital course: 03/14 pt depressed and with much anxiety; tolerati:ng increased Latuda. Discussed options and he agreed to try buspar; he has tried buspar before and remembers it being helpful. 03/15. Increase buspirone on 03/16 to 10 mg tid 03/17: Increase Prazosin to 4 mg HS Gabapentin 300 mg tid trial-knee pain mgt/anxiety trial Pt hoping for program acceptance. 03/18: continue current management and treatment plan. 03/19: continue current management and treatment plan. Plan: CV Q 15 minute checks Start Buspar 5mg Tid Continue home medications with some exceptions Increase Latuda to 40 mg at 17:00 with food for depression Change Thorazine to p.r.n. and instead add Zyprexa Start Zyprexa 2.5 mg t.i.d. with p.r.n. available; being used for anxiety (patient feels higher dose of venlafaxine to activating) Start fenofibrate 160 mg daily -will check LFTs which are a little elevated; (Hold off on starting statin; patient got rhabdo in December and though it was presumed to be lithium, patient was also taking atorvastatin at the time) Start metformin ER at 17:00 for metabolic syndrome Testosterone lab Reason for continued inpatient stay Substantial Risk for: inability to function and rapid decompensation Time Spent With Patient Time: Total time managing care of this patient today ____ minutes.
[2025-03-19 14:29] VITALS: BP 135/82
[2025-03-19 20:00] VITALS: BP 127/56; PULSE 78; RESP 16; TEMP 36.9; O2SAT 99
[2025-03-19 20:14] VITALS: BP 127/56
[2025-03-19 20:15] VITALS: BP 127/56
[2025-03-20] MEDS: methADONE HCl 20 MG/2 ML ORAL.CONC 205 MG PO (07:53)
[2025-03-20 08:00] VITALS: BP 112/66; PULSE 79; RESP 20; TEMP 36.5; O2SAT 96
[2025-03-20 08:13] LABS: Creatinine Clr Calc Pharmacy 179.9; Estimated Glomerular Filt Rate > 60
[2025-03-20 08:23] VITALS: BP 112/66
[2025-03-20] MEDS: Venlafaxine HCl ER 150 MG CAP.ER.24H PO (08:25)
--- NOTE | 2025-03-20 09:48 | P.PNPSI_ITS ---
Subjective Subjective Date of Service: 03/20/25 Reason For Visit: SI Subjective Notes: Conditional Voluntary Healthcare Proxy: No Guardianship: No Medical Problems Affecting Mental Status: No Interim History: Jeremy reports feeling discouraged today. Several [facility] applications are pending, however, currently there are no beds. Pt met with his [facility] caretaker grounds today and reports a discouraging meeting, feeling as if there are few if any options and his eligibility is low. Concerned about where he will go next and what his future holds. Reports regime changes are useful, however, some sx of anxiety persist. Medication Compliance: Yes Side effects from medications: No Attending Groups: Intermittent Review of Systems Acute medical concerns: No Medical Review of Systems: unchanged Review of Systems Review of Systems Denies Mental Status Exam Mental Status Exam Patient Appearance: Fatigued Patient Orientation: Person, Place, Time and Situation Level of Consciousness: Alert Patient Behavior: Talkative and Good Eye Contact Mood Description: Sad Affect Description: Flat Patient Cognition Impaired: No Ability to Follow Directions: Good Speech Pattern: Spontaneous Speech Memory Description: Intact Hallucinations: None Delusions: Not Present Thought Process: Rumination Thought Content: positive for Circumstantial, positive for Perseveration and positive for Suicidal Ideation (denies) Depressive Symptoms: Thoughts of /Suicide (denies) Judgement: Good Diagnostics Vital Signs (24Hr): Vital Signs - 24 hr 03/19/25 14:29 03/19/25 20:00 03/19/25 20:14 Temperature 98.4 F Pulse Rate 78 Respiratory Rate 16 Blood Pressure 135/82 127/56 L 127/56 L Pulse Oximetry 99 Oxygen Delivery Method Room Air 03/19/25 20:15 03/20/25 08:23 Temperature Pulse Rate Respiratory Rate Blood Pressure 127/56 L 112/66 Pulse Oximetry Oxygen Delivery Method BMI result Body Mass Index 39.8 Labs 03/11/25 05:47 03/20/25 07:50 Labs: Laboratory Results - last 48 hr 03/13/25 03/20/25 12:08 07:50 Creatinine 0.87 Estim Creat Clear Calc 179.9 Estimated GFR > 60 Total Testosterone 24 L Fr Testosterone Dialys 4.1 L Medications Medications Current Medications Acetaminophen (Acetaminophen 325 Mg Tablet) 650 mg PO Q6H PRN PRN Reason: Headache/Pain, Scale 1-10 Last Admin: 03/15/25 20:35 Dose: 650 mg Al Hydroxide/Mg Hydroxide (Magnesium Hydrox/Alum Hydrox 30 Ml Oral.Susp) 30 ml PO Q6H PRN PRN Reason: Heartburn/Nausea Baclofen (Baclofen 10 Mg Tablet) 10 mg PO TID [facility] Last Admin: 03/20/25 08:23 Dose: 10 mg Buspirone HCl (Buspirone Hcl 10 Mg Tablet) 10 mg PO TID [facility] Last Admin: 03/20/25 08:25 Dose: 10 mg Cephalexin HCl (Cephalexin 500 Mg Capsule) 500 mg PO BID [facility] Last Admin: 03/20/25 08:25 Dose: 500 mg Chlorpromazine HCl (Chlorpromazine Hcl 25 Mg Tablet) 25 mg PO BID PRN PRN Reason: for moderate anxiety Last Admin: 03/19/25 20:15 Dose: 25 mg Clonazepam (Clonazepam 1 Mg Tablet) 1 mg PO BID [facility] Last Admin: 03/20/25 08:26 Dose: 1 mg Clonidine HCl (Clonidine Hcl 0.1 Mg Tablet) 0.1 mg PO TID [facility]; Protocol Last Admin: 03/20/25 08:23 Dose: 0.1 mg Doxepin HCl (Doxepin Hcl 25 Mg Capsule) 50 mg PO BEDTIME [facility] Last Admin: 03/19/25 20:15 Dose: 50 mg Doxycycline Monohydrate (Doxycycline Monohydrate 100 Mg Capsule) 100 mg PO BID [facility] Last Admin: 03/20/25 08:25 Dose: 100 mg Fenofibrate (Fenofibrate 160 Mg Tablet) 160 mg PO DAILY [facility] Last Admin: 03/20/25 08:23 Dose: 160 mg Gabapentin (Gabapentin 300 Mg Capsule) 300 mg PO TID [facility] Last Admin: 03/20/25 08:25 Dose: 300 mg Hydroxyzine HCl (Hydroxyzine Hcl 25 Mg Tablet) 25 mg PO Q6H PRN PRN Reason: mild anxiety Last Admin: 03/18/25 20:58 Dose: 25 mg Lurasidone HCl (Lurasidone Hcl 40 Mg Tablet) 40 mg PO DAILY@1700 [facility] Last Admin: 03/19/25 17:55 Dose: 40 mg Magnesium Hydroxide (Milk Of Magnesia 30 Ml Oral.Susp) 30 ml PO DAILY PRN PRN Reason: Constipation Metformin HCl (Metformin Hcl Er 500 Mg Tab.Er.24h) 500 mg PO DAILY@1700 [facility] Last Admin: 03/19/25 17:55 Dose: 500 mg Methadone HCl (Methadone Hcl 20 Mg/2 Ml Oral.Conc) 205 mg PO DAILY@0800 [facility] Last Admin: 03/20/25 07:53 Dose: 205 mg Mirtazapine (Mirtazapine 15 Mg Tablet) 45 mg PO BEDTIME [facility] Last Admin: 03/19/25 20:15 Dose: 45 mg Nicotine (Nicotine 21 Mg Patch.Td24) 21 mg TRANSDERMA DAILY PRN PRN Reason: smoking cessation Nicotine Polacrilex (Nicotine Polacrilex 2 Mg Gum) 4 mg BUCCAL Q2H PRN PRN Reason: nicotine cravings Last Admin: 03/20/25 08:26 Dose: 4 mg Olanzapine (Olanzapine 5 Mg Tablet) 5 mg PO TID PRN PRN Reason: anxiety/agitation Last Admin: 03/20/25 08:24 Dose: 5 mg Olanzapine (Olanzapine 2.5 Mg Tablet) 2.5 mg PO TID [facility] Last Admin: 03/20/25 08:25 Dose: 2.5 mg Omeprazole (Omeprazole 20 Mg Capsule.Dr) 20 mg PO DAILY@0630 [facility] Last Admin: 03/20/25 06:52 Dose: 20 mg Prazosin HCl (Prazosin Hcl 1 Mg Capsule) 4 mg PO BEDTIME [facility]; Protocol Last Admin: 03/19/25 20:14 Dose: 4 mg Promethazine HCl (Promethazine Hcl 25 Mg Tablet) 12.5 mg PO TID PRN PRN Reason: Nausea and Vomiting Last Admin: 03/20/25 08:26 Dose: 12.5 mg Trazodone HCl (Trazodone Hcl 50 Mg Tablet) 50 mg PO BEDTIME MRX1 PRN PRN Reason: Insomnia Venlafaxine HCl (Venlafaxine Hcl Er 150 Mg Cap.Er.24h) 150 mg PO DAILY [facility] Last Admin: 03/20/25 08:25 Dose: 150 mg Allergies Allergies Allergy/AdvReac Type Severity Reaction Status Date / Time No Known Allergies (No Known Allergy Verified 03/11/25 03:16 Allergies*) Assessment & Plan Assessment & Plan (1) MDD (major depressive disorder), recurrent severe, without psychosis: Status: Acute Code(s): F33.2 - Major depressive disorder, recurrent severe without psychotic features (2) PTSD (post-traumatic stress disorder): Status: Acute Code(s): F43.10 - Post-traumatic stress disorder, unspecified (3) Anxiety: Status: Acute Code(s): F41.9 - Anxiety disorder, unspecified (4) Opioid use disorder, severe, on maintenance therapy: Status: Acute Code(s): F11.20 - Opioid dependence, uncomplicated Plan HPI: Patient is a 25-year-old male with history of depression, anxiety, cyclical vomiting, PTSD opiate use disorder who presents for depression with vague SI in the face of relapse. Patient reports this past December, his roommate accidentally OD'd in the basement of their shared apartment, patient found the body. Since then he has felt somewhat dysregulated, accidentally overtook lithium and got rhabdo and lithium was discontinued. Patient reports that he recently discharged from on 02/06 any went to respite; from respite he went to his aunt's (and used for 1day) until he got into [facility]. Patient was discharged after a week which he did not find that helpful. He says he got to [place] that afternoon, used opiates and had some vague suicidal thoughts and passively attempted suicide , saying that he was using a lot of heroin, realizing he could possibly overdose, thinking that if he makes it through he will go to the hospital. He reports that while sober he remains depressed but not too badly; he remains struggling with significant anxiety which he says drives him to use much of the time. Reviewed history and again it does not seem that patient has bipolar disorder but rather anxiety seems to be the most dysregulated factor. Formulation/clinical reasoning: Chronic substance abuse. Patient's pattern is to remain sober while in some type of program or hospitalization, will get discharged and use for couple days and then get back into some type of program; thus progress keeps getting interrupted every few weeks. Medications seem to be moderately helpful. Seems what is most missing his consistent outpatient therapy in the setting of consistent sobriety. Patient feels that Latuda 20 mg has been helpful for his depression and says his parents notice this as well; agrees to increase dose History of anabolic steroid use as a teenager and in his 20s; worries that he has low testosterone; lab ordered; this could be contributing to depression (testosterone also lowered by chronic opioid use) Discussed elevated triglycerides 445 and patient agrees to start fenofibrate (reviewed risks/side effects); elevated cholesterol but holding off on atorvastatin since it was discontinued when patient got a rhabdo this past December Patient talks about struggles with urinary flow; discussed Flomax but patient will hold off for now Discussed metabolic syndrome; patient now taking Zyprexa and patient agrees to start metformin after reviewing risks/side effects Patient asked for clonazepam to be increase; 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 which he has been on for 2 years and explained that patient mostly needs therapy rather than medication management hospital course: 03/14 pt depressed and with much anxiety; tolerati:ng increased Latuda. Discussed options and he agreed to try buspar; he has tried buspar before and remembers it being helpful. 03/15. Increase buspirone on 03/16 to 10 mg tid 03/17: Increase Prazosin to 4 mg HS Gabapentin 300 mg tid trial-knee pain mgt/anxiety trial Pt hoping for program acceptance. 03/18: continue current management and treatment plan. 03/19: continue current management and treatment plan. 03/20: Continue tx. Plan: CV Q 15 minute checks Start Buspar 5mg Tid Continue home medications with some exceptions Increase Latuda to 40 mg at 17:00 with food for depression Change Thorazine to p.r.n. and instead add Zyprexa Start Zyprexa 2.5 mg t.i.d. with p.r.n. available; being used for anxiety (patient feels higher dose of venlafaxine to activating) Start fenofibrate 160 mg daily -will check LFTs which are a little elevated; (Hold off on starting statin; patient got rhabdo in December and though it was presumed to be lithium, patient was also taking atorvastatin at the time) Start metformin ER at 17:00 for metabolic syndrome Testosterone lab Reason for continued inpatient stay Substantial Risk for: rapid decompensation Time Spent With Patient Time: Total time managing care of this patient today ____ minutes.
[2025-03-20 14:16] VITALS: BP 119/76
[2025-03-20 20:00] VITALS: BP 128/71; PULSE 97; RESP 16; TEMP 36.5; O2SAT 98
[2025-03-20 21:24] VITALS: BP 128/71
[2025-03-20 21:25] VITALS: BP 128/71
--- NOTE | 2025-03-21 | ECG_ITS ---
Test Reason : CHECK QT Blood Pressure : */* mmHG Vent. Rate : 92 BPM Atrial Rate : 92 BPM P-R Int : 154 ms QRS Dur : 86 ms QT Int : 382 ms P-R-T Axes : 36 69 53 degrees QTcB Int : 472 ms Normal sinus rhythm Normal ECG When compared with ECG of 12-Mar-2025 12:26, No significant change was found Referred By: Elizabeth Barrios Electronically Signed By: BHAKTI OSMAN MD
[2025-03-21 08:00] VITALS: BP 122/81; PULSE 91; TEMP 36.9; O2SAT 97
[2025-03-21] MEDS: methADONE HCl 20 MG/2 ML ORAL.CONC 205 MG PO (08:01)
[2025-03-21] MEDS: Venlafaxine HCl ER 150 MG CAP.ER.24H PO (08:25)
[2025-03-21 08:27] VITALS: BP 154/108
--- NOTE | 2025-03-21 16:52 | P.PNPSI_ITS ---
Subjective Subjective Date of Service: 03/21/25 Reason For Visit: SI Subjective Notes: Conditional Voluntary Healthcare Proxy: No Guardianship: No Medical Problems Affecting Mental Status: No Interim History: Pt accepted to the [facility] program in [place] for 03/22. Met with pt and Deepika Doyle LCSW-review of [facility] meeting 03/20 and clarification of what has been offered to pt-discussed mobile respite services due to pt's current circumstances and rationale for this recommendation-meeting current needs when paired with pts current circumstances to offer the most help he can obtain. Pt discussed venting to his geriatric case manager, stating he thought more assistance would just be presented vs being met where he is at this time- discussed his misunderstanding of the information presented. Pleased with option to attend [facility]. EKG completed per [facility] request- results WNL Anxious about medication refills. Medication Compliance: Yes Side effects from medications: No Attending Groups: Intermittent Review of Systems Acute medical concerns: No Medical Review of Systems: unchanged Review of Systems Review of Systems Denies Mental Status Exam Mental Status Exam Patient Appearance: Fatigued Patient Orientation: Person, Place, Time and Situation Level of Consciousness: Alert Patient Behavior: Talkative and Good Eye Contact Mood Description: Sad Affect Description: Flat Patient Cognition Impaired: No Ability to Follow Directions: Good Speech Pattern: Spontaneous Speech Memory Description: Intact Hallucinations: None Delusions: Not Present Thought Process: Rumination Thought Content: positive for Circumstantial, positive for Perseveration and positive for Suicidal Ideation (denies) Depressive Symptoms: Thoughts of /Suicide (denies) Judgement: Good Diagnostics Vital Signs (24Hr): Vital Signs - 24 hr 03/20/25 20:00 03/20/25 21:24 03/20/25 21:25 Temperature 97.7 F Pulse Rate 97 Respiratory Rate 16 Blood Pressure 128/71 128/71 128/71 Pulse Oximetry 98 Oxygen Delivery Method Room Air 03/21/25 08:00 03/21/25 08:27 Temperature 98.4 F Pulse Rate 91 Respiratory Rate Blood Pressure 122/81 154/108 H Pulse Oximetry 97 Oxygen Delivery Method Room Air BMI result Body Mass Index 39.8 Labs 03/11/25 05:47 03/20/25 07:50 Labs: Laboratory Results - last 48 hr 03/20/25 07:50 Creatinine 0.87 Estim Creat Clear Calc 179.9 Estimated GFR > 60 Medications Medications Current Medications Acetaminophen (Acetaminophen 325 Mg Tablet) 650 mg PO Q6H PRN PRN Reason: Headache/Pain, Scale 1-10 Last Admin: 03/15/25 20:35 Dose: 650 mg Al Hydroxide/Mg Hydroxide (Magnesium Hydrox/Alum Hydrox 30 Ml Oral.Susp) 30 ml PO Q6H PRN PRN Reason: Heartburn/Nausea Baclofen (Baclofen 10 Mg Tablet) 10 mg PO TID [facility] Last Admin: 03/21/25 14:58 Dose: 10 mg Buspirone HCl (Buspirone Hcl 10 Mg Tablet) 10 mg PO TID [facility] Last Admin: 03/21/25 14:58 Dose: 10 mg Cephalexin HCl (Cephalexin 500 Mg Capsule) 500 mg PO BID [facility] Last Admin: 03/21/25 08:26 Dose: 500 mg Chlorpromazine HCl (Chlorpromazine Hcl 25 Mg Tablet) 25 mg PO BID PRN PRN Reason: for moderate anxiety Last Admin: 03/21/25 05:29 Dose: 25 mg Clonazepam (Clonazepam 1 Mg Tablet) 1 mg PO BID [facility] Last Admin: 03/21/25 08:28 Dose: 1 mg Clonidine HCl (Clonidine Hcl 0.1 Mg Tablet) 0.1 mg PO TID [facility]; Protocol Last Admin: 03/21/25 08:27 Dose: 0.1 mg Doxepin HCl (Doxepin Hcl 25 Mg Capsule) 50 mg PO BEDTIME [facility] Last Admin: 03/20/25 21:25 Dose: 50 mg Doxycycline Monohydrate (Doxycycline Monohydrate 100 Mg Capsule) 100 mg PO BID [facility] Last Admin: 03/21/25 08:26 Dose: 100 mg Fenofibrate (Fenofibrate 160 Mg Tablet) 160 mg PO DAILY [facility] Last Admin: 03/21/25 08:26 Dose: 160 mg Gabapentin (Gabapentin 300 Mg Capsule) 300 mg PO TID [facility] Last Admin: 03/21/25 14:58 Dose: 300 mg Hydrocortisone (Hydrocortisone 1 % Cream 28.35 Gm Tube) 1 appl TOPICAL BID PRN; Protocol PRN Reason: skin irritation Hydroxyzine HCl (Hydroxyzine Hcl 25 Mg Tablet) 25 mg PO Q6H PRN PRN Reason: mild anxiety Last Admin: 03/18/25 20:58 Dose: 25 mg Lurasidone HCl (Lurasidone Hcl 40 Mg Tablet) 40 mg PO DAILY@1700 [facility] Last Admin: 03/20/25 17:10 Dose: 40 mg Magnesium Hydroxide (Milk Of Magnesia 30 Ml Oral.Susp) 30 ml PO DAILY PRN PRN Reason: Constipation Metformin HCl (Metformin Hcl Er 500 Mg Tab.Er.24h) 500 mg PO DAILY@1700 [facility] Last Admin: 03/20/25 17:10 Dose: 500 mg Methadone HCl (Methadone Hcl 20 Mg/2 Ml Oral.Conc) 205 mg PO DAILY@0800 [facility] Last Admin: 03/21/25 08:01 Dose: 205 mg Mirtazapine (Mirtazapine 15 Mg Tablet) 45 mg PO BEDTIME [facility] Last Admin: 03/20/25 21:25 Dose: 45 mg Nicotine (Nicotine 21 Mg Patch.Td24) 21 mg TRANSDERMA DAILY PRN PRN Reason: smoking cessation Nicotine Polacrilex (Nicotine Polacrilex 2 Mg Gum) 4 mg BUCCAL Q2H PRN PRN Reason: nicotine cravings Last Admin: 03/21/25 10:42 Dose: 4 mg Olanzapine (Olanzapine 5 Mg Tablet) 5 mg PO TID PRN PRN Reason: anxiety/agitation Last Admin: 03/21/25 10:42 Dose: 5 mg Olanzapine (Olanzapine 2.5 Mg Tablet) 2.5 mg PO TID [facility] Last Admin: 03/21/25 14:58 Dose: 2.5 mg Omeprazole (Omeprazole 20 Mg Capsule.Dr) 20 mg PO DAILY@0630 [facility] Last Admin: 03/21/25 05:27 Dose: 20 mg Prazosin HCl (Prazosin Hcl 1 Mg Capsule) 4 mg PO BEDTIME [facility]; Protocol Last Admin: 03/20/25 21:24 Dose: 4 mg Promethazine HCl (Promethazine Hcl 25 Mg Tablet) 12.5 mg PO TID PRN PRN Reason: Nausea and Vomiting Last Admin: 03/21/25 08:27 Dose: 12.5 mg Trazodone HCl (Trazodone Hcl 50 Mg Tablet) 50 mg PO BEDTIME MRX1 PRN PRN Reason: Insomnia Venlafaxine HCl (Venlafaxine Hcl Er 150 Mg Cap.Er.24h) 150 mg PO DAILY [facility] Last Admin: 03/21/25 08:25 Dose: 150 mg Allergies Allergies Allergy/AdvReac Type Severity Reaction Status Date / Time No Known Allergies (No Known Allergy Verified 03/11/25 03:16 Allergies*) Assessment & Plan Assessment & Plan (1) MDD (major depressive disorder), recurrent severe, without psychosis: Status: Acute Code(s): F33.2 - Major depressive disorder, recurrent severe without psychotic features (2) PTSD (post-traumatic stress disorder): Status: Acute Code(s): F43.10 - Post-traumatic stress disorder, unspecified (3) Anxiety: Status: Acute Code(s): F41.9 - Anxiety disorder, unspecified (4) Opioid use disorder, severe, on maintenance therapy: Status: Acute Code(s): F11.20 - Opioid dependence, uncomplicated Plan HPI: Patient is a 25-year-old male with history of depression, anxiety, cyclical vomiting, PTSD opiate use disorder who presents for depression with vague SI in the face of relapse. Patient reports this past December, his roommate accidentally OD'd in the basement of their shared apartment, patient found the body. Since then he has felt somewhat dysregulated, accidentally overtook lithium and got rhabdo and lithium was discontinued. Patient reports that he recently discharged from on 02/06 any went to respite; from respite he went to his aunt's (and used for 1day) until he got into [facility]. Patient was discharged after a week which he did not find that helpful. He says he got to [place] that afternoon, used opiates and had some vague suicidal thoughts and passively attempted suicide , saying that he was using a lot of heroin, realizing he could possibly overdose, thinking that if he makes it through he will go to the hospital. He reports that while sober he remains depressed but not too badly; he remains struggling with significant anxiety which he says drives him to use much of the time. Reviewed history and again it does not seem that patient has bipolar disorder but rather anxiety seems to be the most dysregulated factor. Formulation/clinical reasoning: Chronic substance abuse. Patient's pattern is to remain sober while in some type of program or hospitalization, will get discharged and use for couple days and then get back into some type of program; thus progress keeps getting interrupted every few weeks. Medications seem to be moderately helpful. Seems what is most missing his consistent outpatient therapy in the setting of consistent sobriety. Patient feels that Latuda 20 mg has been helpful for his depression and says his parents notice this as well; agrees to increase dose History of anabolic steroid use as a teenager and in his 20s; worries that he has low testosterone; lab ordered; this could be contributing to depression (testosterone also lowered by chronic opioid use) Discussed elevated triglycerides 445 and patient agrees to start fenofibrate (reviewed risks/side effects); elevated cholesterol but holding off on atorvastatin since it was discontinued when patient got a rhabdo this past December Patient talks about struggles with urinary flow; discussed Flomax but patient will hold off for now Discussed metabolic syndrome; patient now taking Zyprexa and patient agrees to start metformin after reviewing risks/side effects Patient asked for clonazepam to be increase; 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 which he has been on for 2 years and explained that patient mostly needs therapy rather than medication management hospital course: 03/14 pt depressed and with much anxiety; tolerati:ng increased Latuda. Discussed options and he agreed to try buspar; he has tried buspar before and remembers it being helpful. 03/15. Increase buspirone on 03/16 to 10 mg tid 03/17: Increase Prazosin to 4 mg HS Gabapentin 300 mg tid trial-knee pain mgt/anxiety trial Pt hoping for program acceptance. 03/18: continue current management and treatment plan. 03/19: continue current management and treatment plan. 03/21: DC 03/22 to [facility] [place] Plan: CV Q 15 minute checks Start Buspar 5mg Tid Continue home medications with some exceptions Increase Latuda to 40 mg at 17:00 with food for depression Change Thorazine to p.r.n. and instead add Zyprexa Start Zyprexa 2.5 mg t.i.d. with p.r.n. available; being used for anxiety (patient feels higher dose of venlafaxine to activating) Start fenofibrate 160 mg daily -will check LFTs which are a little elevated; (Hold off on starting statin; patient got rhabdo in December and though it was presumed to be lithium, patient was also taking atorvastatin at the time) Start metformin ER at 17:00 for metabolic syndrome Testosterone lab Patient educated on: therapeutic strategies Reason for continued inpatient stay Substantial Risk for: stable for discharge Time Spent With Patient Time: Total time managing care of this patient today ____ minutes.
[2025-03-21 20:00] VITALS: BP 137/91; PULSE 103; RESP 20; TEMP 37.5; O2SAT 98
[2025-03-22] MEDS: methADONE HCl 20 MG/2 ML ORAL.CONC 205 MG PO (07:42)
[2025-03-22 07:59] VITALS: BP 135/56
[2025-03-22] MEDS: Venlafaxine HCl ER 150 MG CAP.ER.24H PO (07:59)
--- NOTE | 2025-03-22 09:15 | PM.PSYDC ---
DS: Providers Provider Date of Service: 03/22/25 Date of admission: 03/12/25 15:52 Date of discharge: 03/22/25 Primary care physician: Venkata Yoo DO Admitting clinician: Carlo Tesfaye Attending physician on admission: Carlo Tesfaye Consults: 03/14/25 10:00 Addiction Medicine Provider Routine Consulting Provider: Addiction Covering Reason for consultation: remains in cycle of addiction Attending physician on discharge: Riki Che Discharging clinician: Elizabeth Barrios DS: Diagnosis Discharge Diagnosis (1) MDD (major depressive disorder), recurrent severe, without psychosis: Status: Acute (2) PTSD (post-traumatic stress disorder): Status: Acute (3) Anxiety: Status: Acute (4) Opioid use disorder, severe, on maintenance therapy: Status: Acute DS: Medications Discharge Medications Home Medications: Home Medications ?Medication ?Instructions ?Recorded ?Confirmed methadone 10 mg/mL oral 205 mg PO DAILY@0800 11/06/24 03/11/25 concentrate (Methadose) Previous Rx's ?Medication ?Instructions ?Recorded baclofen 10 mg tablet 10 mg PO TID #90 tabs 03/21/25 buspirone 10 mg tablet 10 mg PO TID #90 tabs 03/21/25 cephalexin 500 mg capsule 500 mg PO BID #14 caps 03/21/25 chlorpromazine 25 mg tablet 25 mg PO BID Severe 03/21/25 Anxiety/agitation #60 tabs clonazepam 1 mg tablet 1 mg PO BID #60 tabs 03/21/25 clonidine HCl 0.1 mg tablet 0.1 mg PO TID #90 tabs 03/21/25 doxepin 50 mg capsule 50 mg PO BEDTIME #30 caps 03/21/25 doxycycline monohydrate 100 mg 100 mg PO BID #14 caps 03/21/25 capsule fenofibrate 160 mg tablet 160 mg PO DAILY #30 tabs 03/21/25 gabapentin 300 mg capsule 300 mg PO TID #90 caps 03/21/25 hydroxyzine HCl 50 mg tablet 25 mg (1/2 x 50 mg) PO TID PRN 03/21/25 mild anxiety #45 tabs lurasidone 40 mg tablet (Latuda) 40 mg PO DAILY@1700 #30 tabs 03/21/25 metformin 500 mg tablet,extended 500 mg PO DAILY@1700 #30 tabs 03/21/25 release 24 hr mirtazapine 45 mg tablet 45 mg PO BEDTIME #30 tabs 03/21/25 naloxone 4 mg/actuation nasal 4 mg intranasal Q2M PRN opioid 03/21/25 spray (Narcan) overdose #2 ea nicotine (polacrilex) 2 mg gum 4 mg buccal Q2H PRN nicotine 03/21/25 cravings #100 ea nicotine 21 mg/24 hr daily 21 mg transdermal DAILY Nicotine 03/21/25 transdermal patch craving #28 ea olanzapine 2.5 mg tablet 2.5 mg PO TID #90 tabs 03/21/25 olanzapine 5 mg tablet 5 mg PO TID PRN anxiety/agitation 03/21/25 #90 tabs omeprazole 20 mg capsule,delayed 20 mg PO DAILY GERD/Acid reflux 03/21/25 release #30 caps prazosin 1 mg capsule 4 mg PO BEDTIME #120 caps 03/21/25 promethazine 12.5 mg tablet 12.5 mg PO TID PRN N/V #90 tabs 03/21/25 trazodone 50 mg tablet 50 mg PO BEDTIME MRX1 PRN Insomnia 03/21/25 #60 tabs venlafaxine 150 mg 150 mg PO DAILY #30 caps 03/21/25 capsule,extended release 24 hr Mental Status Exam Mental Status Exam Patient Appearance: Fatigued Patient Orientation: Person, Place, Time and Situation Level of Consciousness: Alert Patient Behavior: Talkative and Good Eye Contact Mood Description: Sad Affect Description: Flat Patient Cognition Impaired: No Ability to Follow Directions: Good Speech Pattern: Spontaneous Speech Memory Description: Intact Hallucinations: None Delusions: Not Present Thought Process: Rumination Thought Content: positive for Circumstantial, positive for Perseveration and positive for Suicidal Ideation (denies) Depressive Symptoms: Thoughts of /Suicide (denies) Judgement: Good Data Data Completed and Pending Completed studies during hospitalization [Text1]: 03/13/25 03/20/25 12:08 07:50 Creatinine 0.87 Estim Creat Clear Calc 179.9 Estimated GFR > 60 Total Testosterone 24 L Fr Testosterone Dialys 4.1 L DS: Summary Hospital Course Hospital Course: Admission to adult psychiatry for exacerbation of PTSD, recurrent major depression, anxiety, opiate use disorder. Hx of cyclical vomiting. Pt admitted with cellulitis which began to resolve during admission. Pt discussed increasing anxiety, after finding his room-mate having in their basement post overdose and pt alternating SI and relapse since that incident in December 2024. Medications were evaluated and adjusted. Pt was encouraged to utilize the milieu to strengthen coping skills. Team worked with pt and secured placement with [facility]. Testosterone levels returned on the day of discharge indicated low levels. Pt was asked to follow up with his PCP for further assessment of these levels. Status at Discharge Functional status at discharge: independent ambulation Overall status at discharge: patient is progressing back to baseline Time Spent with Patient Time attestation: Total time managing care of this patient today ____ minutes. Time spent: Less than 30 minutes Discharge Plan Discharge Anticipated Discharge Date/Time: 03/22/25 11:00 Patient Disposition: Xfer Inpatient Rehab Fac Discharge Diagnosis: PTSD Recurrent Major Depression Anxiety Opiate Use Disorder Cellulitis Referrals: [facility] [Other] - 03/22/25 12:00 pm [facility] Rocky Dean [employer] [Other] - 3-5 Days Referral Note: Please follow up with Rocky once you are at the [facility] to learn more about the mobile respite. Rocky will put a referral in for the mobile respite for you. [facility] Psychiatry and Therapy [Other] - 1 Month Referral Note: Please follow up with them before you leave the [facility] program to set up an appointment to continue your medication management and to begin therapy services. You spoke with Pippa Barahona at [facility] and her extension is [phone] if you need to speak with her. Josr Bryant MD [Physician, Medical] - 1 Week Discharge Medications: New nicotine (polacrilex) 2 mg Gum 4 mg buccal Q2H PRN (Reason: nicotine cravings) Qty: 100 0RF prazosin 1 mg Capsule 4 mg PO BEDTIME Qty: 120 0RF Protocol: Hold for SBP< HOLD for SBP < : 90 doxycycline monohydrate 100 mg Capsule 100 mg PO BID Qty: 14 0RF cephalexin 500 mg Capsule 500 mg PO BID Qty: 14 0RF buspirone 10 mg Tablet 10 mg PO TID Qty: 90 0RF fenofibrate 160 mg Tablet 160 mg PO DAILY Qty: 30 0RF trazodone 50 mg Tablet 50 mg PO BEDTIME MRX1 PRN (Reason: Insomnia) Qty: 60 0RF venlafaxine 150 mg Capsule,Extended Release 24hr 150 mg PO DAILY Qty: 30 0RF gabapentin 300 mg Capsule 300 mg PO TID Qty: 90 0RF metformin 500 mg Tablet Extended Release 24 Hr 500 mg PO DAILY@1700 Qty: 30 0RF lurasidone [Latuda] 40 mg Tablet 40 mg PO DAILY@1700 Qty: 30 0RF naloxone [Narcan] 4 mg/actuation spray,non-aerosol 4 mg intranasal Q2M PRN (Reason: opioid overdose) Qty: 2 0RF Rx Instructions: spray 1 dose into ONE nostril; alternate nostrils w each dose until help arrives mirtazapine 45 mg tablet 45 mg PO BEDTIME Qty: 30 0RF olanzapine 7.5 mg tablet 7.5 mg PO DAILY Qty: 30 0RF Continued methadone [Methadose] 10 mg/mL concentrate 205 mg PO DAILY@0800 Patient Comments: Dose verified by [facility] in [place] Deepika BAER. 03/11/25 Rx Instructions: Dose verified by Marco BAER, [facility] doxepin 50 mg capsule 50 mg PO BEDTIME Qty: 30 0RF clonidine HCl 0.1 mg tablet 0.1 mg PO TID Qty: 90 0RF clonazepam 1 mg tablet 1 mg PO BID Qty: 60 0RF baclofen 10 mg tablet 10 mg PO TID Qty: 90 0RF chlorpromazine 25 mg tablet 25 mg PO BID Qty: 60 0RF nicotine 21 mg/24 hr Patch 24 Hour 21 mg transdermal DAILY Qty: 28 0RF omeprazole 20 mg Capsule,Delayed Release(Dr/Ec) 20 mg PO DAILY Qty: 30 0RF Changed promethazine 12.5 mg tablet 12.5 mg PO TID PRN (Reason: N/V) Qty: 90 0RF hydroxyzine HCl 50 mg tablet 25 mg PO TID PRN (Reason: mild anxiety) Qty: 45 0RF Discontinued nicotine (polacrilex) 2 mg Gum 4 mg buccal Q2H PRN (Reason: Nicotine Cravings) Qty: 100 0RF chlorpromazine 25 mg Tablet 50 mg PO BEDTIME PRN (Reason: Insomnia/severe anxiety ) Qty: 60 0RF lurasidone [Latuda] 20 mg Tablet 20 mg PO DAILY@1700 Qty: 30 0RF venlafaxine 37.5 mg capsule,extended release 24hr 150 mg PO DAILY Qty: 120 0RF doxepin 25 mg capsule 25 mg PO BEDTIME Qty: 30 0RF prazosin 1 mg capsule 3 mg PO BEDTIME Qty: 90 0RF mirtazapine 15 mg tablet 45 mg PO BEDTIME Qty: 90 0RF Discharge Orders: Discharge Order (Routine); Ordered 03/22/25 Ordered By: Elizabeth Barrios Diet: Advance to usual diet Activity on Discharge: As tolerated Stand Alone Forms: Patient Portal Discharge page, Community Support Print Language: Samoan Care Plan Goals: Mood and Behavioral Stabilization Abstinence from Substances Health Concerns: Mood and Behavioral Stabilization Abstinence from Substances Plan of Treatment: Transfer to [facility] Take medications as directed Attend scheduled appointments Call your primary care physician for an appointment to follow up on Testosterone levels Total Testosterone (250-1100) 24 low Free Testosterone (35-155) 4.1 low Assessment: Pt agrees with plan of care Transfer to [facility] Discharge Date/Time: 03/22/25 11:37
== END 2025-03-22 11:37 | DRG 885 ==
LOC: HO.ED 08:56 → HO.PM5 03-12 17:04
PROVIDERS: Physician Assistant Medical; Admitting Provider Psychiatry & Neurology Psychiatry; Emergency Provider Emergency Medicine; PCP Family Medicine; Visit Provider Clinical Nurse Specialist Psychiatric/Mental Health, Adult
DX: F33.2 Major depressive disorder, recurrent severe without psychotic features (principal); F11.20 Opioid dependence, uncomplicated; R45.851 Suicidal ideations; L03.114 Cellulitis of left upper limb; F17.210 Nicotine dependence, cigarettes, uncomplicated; Z71.6 Tobacco abuse counseling; F43.10 Post-traumatic stress disorder, unspecified; F41.9 Anxiety disorder, unspecified; Z79.899 Other long term (current) drug therapy
CPT/HCPCS: 36415; 80048; 80053; 80061; 80143; 80179; 80307; 81001; 82565; 83036; 84402; 84403; 84443; 85025; 93005; 99285; S9485

== ENCOUNTER → 2025-03-12 12:20 | Outpatient (BNV) | payer MEDICAID, SELFPAY | PROVIDERS: Admitting Provider Psychiatry & Neurology Psychiatry; Emergency Provider Emergency Medicine; PCP Family Medicine; Visit Provider Internal Medicine Cardiovascular Disease | DX: R94.31 Abnormal electrocardiogram [ECG] [EKG] (principal); Z13.6 Encounter for screening for cardiovascular disorders | CPT/HCPCS: 93010 ==

== ENCOUNTER 2025-03-12 15:52 | Outpatient (BNV) | payer MEDICAID, SELFPAY | END 2025-03-21 14:37 | PROVIDERS: Admitting Provider Psychiatry & Neurology Psychiatry; Emergency Provider Emergency Medicine; PCP Family Medicine; Visit Provider Internal Medicine Cardiovascular Disease | DX: Z13.6 Encounter for screening for cardiovascular disorders (principal) | CPT/HCPCS: 93010 ==

== ENCOUNTER → 2025-03-12 15:52 | Outpatient (BNV) | payer MEDICAID, SELFPAY | PROVIDERS: Admitting Provider Psychiatry & Neurology Psychiatry; Emergency Provider Emergency Medicine; PCP Family Medicine; Visit Provider Nurse Practitioner Family | DX: L03.90 Cellulitis, unspecified (principal) | CPT/HCPCS: 99221 ==

== ENCOUNTER → 2025-03-12 15:52 | Outpatient (BNV) | payer OTHER, SELFPAY | PROVIDERS: Admitting Provider Psychiatry & Neurology Psychiatry; Emergency Provider Emergency Medicine; PCP Family Medicine; Visit Provider Psychiatry & Neurology Psychiatry | DX: F33.2 Major depressive disorder, recurrent severe without psychotic features (principal); F11.20 Opioid dependence, uncomplicated; F43.11 Post-traumatic stress disorder, acute; F41.9 Anxiety disorder, unspecified | CPT/HCPCS: 90792; 99232 ==